=== PATIENT | female | born 1955 | race Caucasian/White ===

== ENCOUNTER 2017-05-11 22:01 | Emergency (ER) | payer OTHER ==
[~2017-05-11] VITALS: Ht 172.7 cm; Wt 81.0 kg
[~2017-05-11 22:01] MED LIST: CALCTAB7 PO; CEPH500C2 PO; CRAN500C2 PO; FLNIN/ NAE; FSM70 PO; HYDR0.2C10 TOP; INSUINJ14 PO; INSUINJ4 SC; LANS30CA63 PO; LEVE1TAB57 PO; LSX20 PO; MINO50CA3 PO; NRN100 PO; OXYC1TAB3 PO; POTA10CA28 PO; RIFA550T2 PO; SPIR50TA3 PO; TMPOPS15 OPB; TPRSR/25 PO; VENL150C56 PO
[2017-05-11 22:19] VITALS: TEMP 37; Ht 172.7 cm; Wt 81.0 kg
[2017-05-11] MEDS ORDERED: BISA1TAB15 PO (23:39)
[2017-05-11 23:51] LABS: URINE APPEARANCE CLEAR (CLEAR); URINE COLOR DK YELLOW; URINE EPITHELIAL CELL AUTO >30 /lpf (0-5); URINE NITRITE NEG (NEG); URINE PH 5.5 (4.5-7.5); URINE SPECIFIC GRAVITY 1.025 (1.000-1.030); UROBILINOGEN NEG (NEG); ZZUR CULT IF INDIC CLEAN CATCH YES
[2017-05-12 00:06] LABS: BUN/CREATININE RATIO 26.4 (10-20); CALCIUM 8.2 mg/dl (8.5-10.1); CREATININE 0.8 mg/dl (0.60-1.20); POTASSIUM 4.4 mmol/L (3.5-5.1)
[2017-05-12 00:08] LABS: MANUAL MICROSCOPIC REQUIRED? NO; REVIEW REQ? NO; URINE BILIRUBIN 1+ (NEG)
[2017-05-12 00:10] LABS: MEAN CELL VOLUME 78.4 fL (80-100); MEAN CORPUSCULAR HEMOGLOBIN 27.1 pg (25-34); MEAN CORPUSCULAR HGB CONC 34.6 g/dl (32-36); PLATELET COUNT 78 K/uL (130-400); RED BLOOD COUNT 4.72 M/uL (4.2-5.4); WHITE BLOOD COUNT 6.67 K/uL (4.8-10.8)
[2017-05-12 00:17] LABS: ALB/GLOB RATIO 0.6 (0.9-2); THYROID STIMULATING HORMONE 3.07 uIu/ml (0.300-4.500)
[2017-05-12 00:28] LABS: BENZODIAZEPINE, URINE NEG (NEG); COCAINE,URINE NEG (NEG); PHENCYCLIDINE, URINE NEG (NEG)
[2017-05-12 00:36] LABS: BASO % 0.1 %; BASO ABS # 0.01 K/uL (0-0.2); COMPLETE YES; EOS % 0.6 %; IG% 0.3 %; LYMPH % 18.3 %; LYMPH ABS # 1.22 K/uL (1.2-3.4); MONO % 14.4 %; NEUT % 66.3 %; PLT ESTIMATE DECREASED
--- NOTE | 2017-05-12 00:52 | EMERGENCY ROOM VISIT NOTE ---
History Report prepared by Christie: Kade Jernigan Under the Supervision of: Dr. Zia Black M.D. First contact with patient: 22:38 Chief Complaint: NAUSEA Stated Complaint: NAUSEA, PSYCHIATRIC ISSUES Nursing Triage Summary: arrived via amb with bls. pt states there were several people insulating the inside of her house today and she did not take her meds. bacmae nauseated tonight. denies vomitting. History of Present Illness The patient is a 61 year old female who presents to the Emergency Room for a mental health evaluation per request of police. She states that there were people in her house "spraying stuff". She states that she does not know who these people in the house were, but thinks that they were contracted by her house manager branch. Per disease case manager, police was called to the patient's house for "suspicious behavior" and found the patient laying on her flood with a steak knife in hand. She states that the patient's kitchen sink was actively running and overflowing, and that she told police "they won't let me go in there". Police feels that the patient may have been hallucinating. The patient has a history of diabetes and hyperammonemia. She denies any suicidal ideation, and states that she does not want to hurt herself. She denies holding a knife, but states that there was a knife in a chair near her. She states "I couldn't go in the kitchen because the floor was wet and I didn't want to leave my prints". The patient also complains of nausea. Source of History: patient Quality: other (mental health evaluation) Associated Symptoms: + nausea Review of Systems See HPI for pertinent positives & negatives. A total of 10 systems reviewed and were otherwise negative. 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 (23) Generalized-onset seizures (24) Head injury (25) Head injury (26) Headache (27) Headache (28) Headache (29) Headache (30) Headache (31) Headache (32) Headache (33) Headache (34) Headache (35) Headache (36) Headache (37) Hepatic encephalopathy (38) Hyperglycemia (39) Hyperglycemia (40) Hyperglycemia without ketosis (41) Hypertension Nos (42) Hypomagnesemia (43) Idiopathic peripheral autonomic neuropathy (44) Ileus (45) Laceration (46) Lumbago (47) Lumbosacral Neuritis Nos (48) Migraine (49) Migraine (50) Migraine (51) Migraine (52) Migraine (53) Migraine (54) Migraine (55) Migraine headache (56) Migraine headache (57) Migraine headache (58) Migraine Unspecified W/O Intract Mgrn W/O Status Migrainosus (59) Myalgia And Myositis Nos (60) Neck pain (61) Noncompliance (62) Osteoporosis (63) Peripheral edema (64) Portal Hypertension (65) Right facial pain (66) Right sided abdominal pain (67) Right upper quadrant abdominal pain (68) Right-sided chest wall pain (69) s/p cholecystectomy (70) s/p lumbar kyphoplasty (71) s/p lumbar laminectomy (72) s/p reconstruction nose (73) Tobacco Use Disorder (74) Unspecified Viral Hepatitis C Without Hepatic Coma (75) UTI (urinary tract infection) (76) Vomiting Family History Adopted Social History Smoking Status: Never Smoker Alcohol Use: other Drug Use: none Marital Status: Housing Status: lives with friends Occupation Status: disabled Current/Historical Medications Scheduled Alendronate Sodium (Alendronate Sodium), 70 MG PO WK Calcium Carbonate-Vitamin D W/ (Caltrate 600 Plus), 1 TABLET PO TID Cranberry (Vaccinium Macrocarp (Cranberry), 500 MG PO DAILY Fluticasone Propionate (Fluticasone Propionate), 2 SPRAYS KODY ON HOLD Furosemide (Furosemide), 20 MG PO DAILY Gabapentin (Gabapentin), 100 MG PO TID Insulin Aspart (Novolog Penfill), UNITS PO AC Insulin Glargine (Lantus Solostar Pen), 70 UNITS SC HS Lansoprazole (Prevacid), 30 MG PO BID Levetiracetam (Keppra), 1,000 MG PO BID Metoprolol Succinate (Metoprolol Succinate ER), 12.5 MG PO DAILY Potassium Chloride (Micro-K Ext Rel), 10 MEQ PO BID Rifaximin (Xifaxan), 550 MG PO BID Spironolactone (Aldactone), 50 MG PO DAILY Venlafaxine Hcl (Effexor Extended Rel), 150 MG PO DAILY Scheduled PRN Bisacodyl (Bisacodyl), 5 MG PO UD PRN for constipation Hydrocortisone Valerate 0.2% (Westcort 0.2%), 1 APPLN TOP TID PRN for ITCH/ INFLAMMATION Oxycodone Immediate Rel Tab (Roxicodone Ir), 10 MG PO Q4H PRN for Severe Pain Allergies Coded Allergies: Coconut (Verified Allergy, Unknown, ANAPHYLAXIS, 05/11/17) Modafinil (Verified Adverse Reaction, Severe, MAKES HYPER, 05/11/17) Sulfamethoxazole (Verified Adverse Reaction, Intermediate, PT STATES NOT GOOD FOR LIVER, 05/11/17) PT STATES (NOT GOOD FOR LIVER) Zolpidem (Verified Adverse Reaction, Intermediate, LIVER PROBLEMS, 05/11/17 ) Morphine (Verified Adverse Reaction, Mild, hallucinations, 05/11/17) Physical Exam Vital Signs Date Time Temp Pulse Resp B/P (MAP) Pulse Ox O2 Delivery O2 Flow Rate FiO2 05/12/17 03:13 84 20 136/68 95 05/11/17 22:19 37.0 110 18 132/60 96 Room Air Physical Exam PSYCH: Denies depression. Denies suicidal ideation. Denies hallucinations. GENERAL: Patient is in no distress. Chronically unwell appearing. Drinking water in the room. HEENT: No acute trauma, normocephalic atraumatic, mucous membranes moist, no nasal congestion, no scleral icterus. NECK: No stridor, no adenopathy, no meningismus, trachea is midline. LUNGS: No dyspnea. Clear to auscultation and equal bilaterally. No wheeze, no rhonchi. HEART: Regular rate and rhythm. No murmurs, rubs, gallops appreciated. ABDOMEN: Soft, bowel sounds positive, no masses appreciated, no peritonitis. Vague diffuse abdominal tenderness which is chronic per patient. BACK: No midline tenderness, no CVA tenderness EXTREMITIES: Normal motion all extremities, no cyanosis, no edema. NEUROLOGIC: Alert and oriented, no acute motor or sensory deficits, no focal weakness, cranial nerves grossly intact. SKIN: No rash, no jaundice, no diaphoresis. Thin skin with many skin tears which appear chronic. Medical Decision & Procedures Laboratory Results 05/11/17 23:21 Red Blood Count 4.72, Mean Corpuscular Volume 78.4, Mean Corpuscular Hemoglobin 27.1, Mean Corpuscular Hemoglobin Concent 34.6, Mean Platelet Volume 11.0, Neutrophils (%) (Auto) 66.3, Lymphocytes (%) (Auto) 18.3, Monocytes (%) (Auto) 14.4, Eosinophils (%) (Auto) 0.6, Basophils (%) (Auto) 0.1, Neutrophils # (Auto ) 4.42, Lymphocytes # (Auto) 1.22, Monocytes # (Auto) 0.96, Eosinophils # (Auto ) 0.04, Basophils # (Auto) 0.01 05/11/17 23:21 Test 05/11/17 23:21 05/11/17 23:30 White Blood Count 6.67 K/uL (4.8-10.8) Red Blood Count 4.72 M/uL (4.2-5.4) Hemoglobin 12.8 g/dL (12.0-16.0) Hematocrit 37.0 % (37-47) Mean Corpuscular Volume 78.4 fL (80-100) Mean Corpuscular Hemoglobin 27.1 pg (25-34) Mean Corpuscular Hemoglobin Concent 34.6 g/dl (32-36) Platelet Count 78 K/uL (130-400) Mean Platelet Volume 11.0 fL (7.4-10.4) Neutrophils (%) (Auto) 66.3 % Lymphocytes (%) (Auto) 18.3 % Monocytes (%) (Auto) 14.4 % Eosinophils (%) (Auto) 0.6 % Basophils (%) (Auto) 0.1 % Neutrophils # (Auto) 4.42 K/uL (1.4-6.5) Lymphocytes # (Auto) 1.22 K/uL (1.2-3.4) Monocytes # (Auto) 0.96 K/uL (0.11-0.59) Eosinophils # (Auto) 0.04 K/uL (0-0.5) Basophils # (Auto) 0.01 K/uL (0-0.2) RDW Standard Deviation 49.1 fL (36.4-46.3) RDW Coefficient of Variation 17.3 % (11.5-14.5) Immature Granulocyte % (Auto) 0.3 % Immature Granulocyte # (Auto) 0.02 K/uL (0.00-0.02) Platelet Estimate DECREASED Anion Gap 4.0 mmol/L (3-11) Est Creatinine Clear Calc Drug Dose 80.4 ml/min Estimated GFR () 90.9 Estimated GFR (Non- 78.5 BUN/Creatinine Ratio 26.4 (10-20) Calcium Level 8.2 mg/dl (8.5-10.1) Total Bilirubin 3.6 mg/dl (0.2-1) Aspartate Amino Transf (AST/SGOT) 91 U/L (15-37) Alanine Aminotransferase (ALT/SGPT) 42 U/L (12-78) Alkaline Phosphatase 132 U/L (45-117) Ammonia 34.0 umol/L (11-32) Total Protein 6.7 gm/dl (6.4-8.2) Albumin 2.4 gm/dl (3.4-5.0) Globulin 4.3 gm/dl (2.5-4.0) Albumin/Globulin Ratio 0.6 (0.9-2) Thyroid Stimulating Hormone (TSH) 3.070 uIu/ml (0.300-4.500) Ethyl Alcohol mg/dL < 3.0 mg/dl (0-3) Urine Color DK YELLOW Urine Appearance CLEAR (CLEAR) Urine pH 5.5 (4.5-7.5) Urine Specific [place] 1.025 (1.000-1.030) Urine Protein NEG (NEG) Urine Glucose (UA) 3+ (NEG) Urine Ketones TRACE (NEG) Urine Occult Blood NEG (NEG) Urine Nitrite NEG (NEG) Urine Bilirubin 1+ (NEG) Urine Urobilinogen NEG (NEG) Urine Leukocyte Esterase TRACE (NEG) Urine WBC (Auto) 1-5 /hpf (0-5) Urine RBC (Auto) 0-4 /hpf (0-4) Urine Hyaline Casts (Auto) 1-5 /lpf (0-5) Urine Epithelial Cells (Auto) >30 /lpf (0-5) Urine Bacteria (Auto) 1+ (NEG) Urine Opiates Screen POS (NEG) Urine Methadone, Qualitative NEG (NEG) Urine Barbiturates NEG (NEG) Urine Phencyclidine (PCP) Level NEG (NEG) Ur Amphetamine/Methamphetamine NEG (NEG) MDMA (Ecstasy) Screen NEG (NEG) Urine Benzodiazepines Screen NEG (NEG) Urine Cocaine Metabolite NEG (NEG) Urine Marijuana (THC) NEG (NEG) Laboratory results as reviewed by me. ED Course 2255: The patient was evaluated in room A6. A complete history and physical exam was performed. 0055: I spoke with the patient regarding admission for her elevated bilirubin. She does not want to stay, but would like another sandwich. She denies any suicidal or homicidal ideation. [facility] will evaluate the patient. 0204: I spoke with the manufacturers representative from [facility]. He states that there is no real criteria for a 302. He would like to leave. The patient will follow up with her PCP tomorrow about the elevated bilirubin. 0210: Reevaluated the patient. Discussed results and discharge instructions: she verbalized understanding and agreement. The patient is ready for discharge. Medical Decision Differential: Mood Disorder, Overdose, Infectious, Electrolyte Abnormality, Cardiac, Hepatic, Endocrine, Toxicologic, Neurologic, amongst other pathologies entertained. 61 yr old female arrives via EMS for mental health evaluation. No 302 petition and patient states she is at her baseline. She is in no distress without any complaints. Admits chronic abdominal pain which has been unchanged. Multiple med comorbidities including cirrhosis and follows with [facility] for this. She is awake, alert, oriented. States reasons for what happened at home. Denies any concerns of suicidal/homicidal thoughts nor actions. She denies acute depression. She denies need for inpatient psych evaluation. Labs with mildly elevated bili from her standard though she states he GI specialist is following this. She refuses inpatient medical admission for further evaluation stating she will follow up with her PCP. She is not encephalopathic and is not intoxicated. [facility] involved given odd story though no indication from their end for involuntary commitment. Appreciate Case Management who contacted her friend (Kiah) who was made aware and noted that she was out of town until Wed ( 1.5 days). Also asked that office aging get involved as well as give PCP/GI call and heads up on labs to try and avoid anything being missed. Impression Primary Impression: Elevated bilirubin Additional Impression: Joycelyn Reynoldsibbello Attestation The scribe's documentation has been prepared under my direction and personally reviewed by me in its entirety. I confirm that the note above accurately reflects all work, treatment, procedures, and medical decision making performed by me. Departure Information Dispostion Home / Self-Care Referrals Franco Singh D.O. (PCP) Patient Instructions My [facility] Additional Instructions Your Bilirubin is elevated above normal for you BiliT 3.6. Please call your Liver specialist in the morning to discuss this. We are always here to help and if you wish further evaluation return at any time. It was advised you stay in the hospital for further evaluation of your liver tests but you have decided against this. Problem Qualifiers
[2017-05-12 03:13] VITALS: BP 136/68; PULSE 84; O2SAT 95
[2017-05-14 15:22] LABS: COD UR NEGATIVE NG/ML (CUTOFF=50); HYDROCOD UR NEGATIVE NG/ML (CUTOFF=50); HYDROMOR UR NEGATIVE NG/ML (CUTOFF=50); MORPHINE UR NEGATIVE NG/ML (CUTOFF=50); NORHYDROCODONE CONF UR NEGATIVE NG/ML (CUTOFF=50); OXYMORPH UR 834 NG/ML (CUTOFF=50)
[2017-07-09] MEDS ORDERED: OXYC1TAB3 PO (10:24)
[2017-07-16] MEDS ORDERED: LCTL45 PO (11:06)
[2017-07-16] MEDS ORDERED: LVNIS40 SQ (11:06)
[2017-07-16] MEDS ORDERED: ACET-1047 PO (11:06)
[2017-07-16] MEDS ORDERED: NVLGIPEN SC (11:06)
[2017-07-16] MEDS ORDERED: INSDGIPEN SC (11:06)
[2017-09-25] MEDS ORDERED: OXYC-164 PO (05:00)
[2017-09-25] MEDS ORDERED: INSU1.2I SQ (05:00)
[2017-09-25] MEDS ORDERED: FSM70 PO (05:04)
[2017-09-25] MEDS ORDERED: LCTL30 PO (05:20)
[2017-09-25] MEDS ORDERED: BISA1TAB25 PO (05:22)
[2017-09-25] MEDS ORDERED: CRAN500C2 PO (05:23)
[2017-09-25] MEDS ORDERED: INSDGIPEN SC (05:25)
[2017-09-25] MEDS ORDERED: NVLGI/PEN SQ (05:27)
== END 2017-05-12 03:14 | disposition home or self-care (01) ==
LOC: EDBD 22:01 → C.EDA 22:02
DX: R82.2 Biliuria (principal); F22 Delusional disorders; E11.9 Type 2 diabetes mellitus without complications; I10 Essential (primary) hypertension; K74.60 Unspecified cirrhosis of liver; K72.90 Hepatic failure, unspecified without coma; J45.909 Unspecified asthma, uncomplicated; J44.9 Chronic obstructive pulmonary disease, unspecified; G40.909 Epilepsy, unspecified, not intractable, without status epilepticus; B19.20 Unspecified viral hepatitis C without hepatic coma; M81.0 Age-related osteoporosis without current pathological fracture; Z87.81 Personal history of (healed) traumatic fracture; Z87.828 Personal history of other (healed) physical injury and trauma; Z87.440 Personal history of urinary (tract) infections; Z90.49 Acquired absence of other specified parts of digestive tract

== ENCOUNTER → 2017-06-15 | Outpatient (CLI) | payer OTHER ==
[~2017-06-15] MED LIST changes: +ACET-1047 PO; +ALEN70TA3 PO; +AMOX1TAB43 PO; +ASPEC81 PO; +BISA1TAB15 PO; -CEPH500C2 PO; +CTP1 PO; +DICY10CA12 PO; +EFFSR75 PO; +ENOX40IN SQ; +HYDCR25 TOP; +IMD/2 PO; +INSDGIPEN SC; +INSDGIPEN SQ; +INSU1.2I SQ; +IPRASOL4 INH; +LCTL45 PO; +LEVE100021 PO; +LVNIS40 SQ; +MAGN400T6 PO; -MINO50CA3 PO; +NF656 TOP; +NVLG SQ; +NVLGI/PEN SC; +NVLGIPEN SC; +PANT40TA PO; +RXC5 PO; -TMPOPS15 OPB; +TPRSR50 PO; +VENL75CA73 PO
--- NOTE | 2017-06-15 13:09 | DIAGNOSTIC IMAGING REPORT ---
RIBS BILATERAL WITH PA CHEST CLINICAL HISTORY: Fall. Bilateral rib pain. COMPARISON STUDY: Chest 02/03/2016. FINDINGS: No pneumothorax. No pleural effusions. The heart is normal in size. Cervical spinal fusion hardware. Linear density left lung base favor scarring or atelectasis. Mild emphysema persists. Mild deformity within a few of the left ribs consistent with old, healed fractures. IMPRESSION: No acute rib fractures. No pneumothorax. Electronically signed by: Asa Dietz M.D. 06/15/2017 1:07 PM Dictated Date/Time: 06/15/2017 1:05 PM
== END | disposition home or self-care (01) ==
LOC: C.RAD1850 12:24
PROVIDERS: ATTEND Family Medicine
DX: R07.9 Chest pain, unspecified (principal)

== ENCOUNTER 2017-07-09 15:48 | Inpatient (IN) | payer OTHER ==
[~2017-07-09] VITALS: Ht 172.7 cm; Wt 74.9 kg
[~2017-07-09 15:48] MED LIST changes: -ACET-1047 PO; -ALEN70TA3 PO; -AMOX1TAB43 PO; -ASPEC81 PO; -CTP1 PO; -DICY10CA12 PO; -EFFSR75 PO; -ENOX40IN SQ; -HYDCR25 TOP; -IMD/2 PO; -INSDGIPEN SC; -INSDGIPEN SQ; -INSU1.2I SQ; -IPRASOL4 INH; -LCTL45 PO; -LEVE100021 PO; -LVNIS40 SQ; -MAGN400T6 PO; -NF656 TOP; -NVLG SQ; -NVLGI/PEN SC; -NVLGIPEN SC; -PANT40TA PO; -RXC5 PO; -TPRSR50 PO; -VENL75CA73 PO
[2017-07-09] MEDS ORDERED: INSU1.2I SQ (16:35)
[2017-07-09] MEDS ORDERED: NVLGI/PEN SC (16:35)
[2017-07-09] MEDS ORDERED: LEVE100021 PO (16:35)
[2017-07-09] MEDS ORDERED: INSDGIPEN SQ (16:38)
[2017-07-09] MEDS ORDERED: HYDCR25 TOP (16:39)
[2017-07-09] MEDS ORDERED: FENTANYL CITRATE INJ 50 MCG/1 ML 2 ML VIAL IV STA (17:11)
[2017-07-09] MEDS ORDERED: SODIUM CHLORIDE 0.9% 1000ML 1,000 ML IV STA (17:11)
[2017-07-09 17:38] LABS: MEAN CORPUSCULAR HGB CONC 34.8 g/dl (32-36)
[2017-07-09 17:56] LABS: BUN/CREATININE RATIO 8.9 (10-20); CALCIUM 8.3 mg/dl (8.5-10.1); CREATININE 0.97 mg/dl (0.60-1.20)
--- NOTE | 2017-07-09 18:10 | DIAGNOSTIC IMAGING REPORT ---
CERVICAL SPINE W/O CLINICAL HISTORY: 62 years-old Female presenting with Fall, neck pain. TECHNIQUE: Multidetector CT of the cervical spine was performed without the use of intravenous contrast. IV contrast: None. A dose lowering technique was used consistent with the principles of ALARA (as low as reasonably achievable). COMPARISON: 01/19/2015. CT DOSE (mGy.cm): The estimated cumulative dose is 405.60 mGy.cm. FINDINGS: Tree Inspector topogram: Anterior cervical fusion hardware noted. Straightening of normal cervical lordosis. Postsurgical changes of anterior plate and screw fixation of C5-C7 with osseous fusion evident. No apparent hardware complication. No acute fracture or subluxation. Multilevel degenerative changes detailed below: C2-3: Normal. C3-4: Bilateral facet and right uncovertebral hypertrophy. No significant osseous neural foraminal or spinal canal narrowing. C4-5: Disc osteophyte complex results in mild osseous narrowing of the ventral spinal canal. In combination with uncovertebral hypertrophy, mild to moderate osseous neural foraminal narrowing noted bilaterally. C5-6: Disc osteophyte complex combination with uncovertebral hypertrophy and right facet joint hypertrophy results in mild right osseous neural foraminal narrowing. C6-7: No significant neural foraminal or spinal canal narrowing. C7-T1: Normal. Paraspinal soft tissues within normal limits. Limited intracranial evaluation normal. Lung apices clear. IMPRESSION: 1. No acute osseous injury of the cervical spine. 2. Postsurgical changes of anterior fusion of C5-C7. No hardware complication. 3. Multilevel degenerative changes most severe at C4-5 indicating development degenerative disease adjacent to the fused levels as above. Electronically signed by: Flavio Vázquez M.D. 07/09/2017 6:08 PM Dictated Date/Time: 07/09/2017 6:00 PM
[2017-07-09] MEDS ORDERED: HYDROmorphone INJ 1 MG/ML SYR IV STA (18:15)
[2017-07-09] MEDS ORDERED: DIPHTHERIA/TETANUS/PERTUSSIS 0.5 ML SYR/VIAL IM. ONE (18:30)
[2017-07-09 18:33] LABS: HEMATOCRIT 42.5 % (37-47); MEAN CELL VOLUME 75.8 fL (80-100); MEAN CORPUSCULAR HEMOGLOBIN 26.4 pg (25-34); RED BLOOD COUNT 5.61 M/uL (4.2-5.4); WHITE BLOOD COUNT 4.14 K/uL (4.8-10.8)
[2017-07-09 18:41] LABS: BASO ABS # 0.04 K/uL (0-0.2); COMPLETE YES; EOS % 1.4 %; IG% 0.7 %; LARGE PLATELETS 1+; LYMPH % 31.6 %; LYMPH ABS # 1.31 K/uL (1.2-3.4); MONO % 10.4 %; NEUT % 54.9 %; PLATELET COUNT 81 K/uL (130-400); PLT ESTIMATE DECREASED
--- NOTE | 2017-07-09 19:07 | DIAGNOSTIC IMAGING REPORT ---
LEFT TIBIA AND FIBULA 2 VIEWS CLINICAL HISTORY: Fall with left leg pain. FINDINGS: AP and lateral views of the left tibia and fibula are obtained. No prior studies are available for comparison at the time of dictation. The skeletal structures are osteopenic. There is no radiographic evidence of left tibial or fibular fracture. The knee and ankle joints are grossly maintained. Mild soft tissue swelling is noted in the calf. IMPRESSION: Mild soft tissue swelling with no radiographic evidence of left tibial or fibular fracture. Electronically signed by: Torres Lorenz M.D. 07/09/2017 7:05 PM Dictated Date/Time: 07/09/2017 7:04 PM
--- NOTE | 2017-07-09 19:08 | DIAGNOSTIC IMAGING REPORT ---
LEFT FEMUR 2 VIEWS ROUTINE CLINICAL HISTORY: 62 years-old Female presenting with Fall, left leg pain. TECHNIQUE: Frontal and lateral views of the left femur were obtained. COMPARISON: None. FINDINGS: Since activity the examination is slightly limited due to patient positioning. Within this limitation, evidence of a intertrochanteric left femur fracture. There is 15 mm of displacement at the fracture plane. Hip joint remains congruent. Knee joint grossly congruent. IMPRESSION: Displaced intertrochanteric left femur fracture. Electronically signed by: Flavio Vázquez M.D. 07/09/2017 7:07 PM Dictated Date/Time: 07/09/2017 7:04 PM
--- NOTE | 2017-07-09 19:39 | DIAGNOSTIC IMAGING REPORT ---
CHEST ONE VIEW PORTABLE CLINICAL HISTORY: 62 years-old Female presenting with Hip fx, fall. TECHNIQUE: Portable supine AP view of the chest was obtained. COMPARISON: 06/15/2017. FINDINGS: Atherosclerosis of aortic arch. Cardiac silhouette normal. Interval development of right perihilar vascular indistinctness and central right mid and lower paramediastinal hazy opacity. No large effusion or pneumothorax. Anterior cervical fusion hardware. Upper abdomen normal. IMPRESSION: 1. Interval development of right perihilar vascular indistinctness and paramediastinal right mid and lower lung hazy opacities. Asymmetry would be unexpected in the setting of pulmonary edema. Aspiration or infection to be considered. 2. No displaced fracture. Electronically signed by: Flavio Vázquez M.D. 07/09/2017 7:37 PM Dictated Date/Time: 07/09/2017 7:35 PM
--- NOTE | 2017-07-09 19:51 | History and Physical ---
History & Physical Date & Time of Service: Jul 09, 2017 at 19:38 Chief Complaint: L-Upper Leg Pain/Fall Primary Care Physician: Franco Singh D.O. History of Present Illness Source: patient Fell today while trying to get dog inside. The patient was out on her lawn trying to get her dog inside. Doesn't know if she lost consciousness. Neighbors saw her fall. Ambulance was called. Uncertain how long she was on the ground. She then got up got onto concrete and fell again. The second time she could not stand on the left leg. States that she hit her head on the concrete. [place] a little foggy after second time. No prodromal symptoms to fall. No lightheadedness, No chest pain or palpitations. Denies any alcohol consumption. Patients nose is croocked at baseline from multiple BCC excisions on nose. The patient denies chest pain, palpitations, resting or exertional dyspnea, lightheadedness/syncope, orthopnea, or lower extremity edema. There is no coughing or wheezing. The patient denies fevers, chills, nightshifts. The patient denies nausea, vomiting diarrhea or constipation. Past Medical/Surgical History Hepatitis C - previously on Harvoni due to failure Seizure disorder Migraines COPD Cirrhosis Type 2 Diabetes Medical Problems: (1) Abdominal pain Status: Resolved (2) Abdominal pain Status: Resolved (3) Ac Pyelonephritis Nos Status: Resolved (4) Alcohol Liver Damage Nos Status: Chronic (5) Ankle pain Status: Resolved (6) Asthma Status: Chronic (7) Chronic obstructive lung disease Status: Chronic (8) Cirrhosis of liver Status: Resolved (9) Cirrhosis Of Liver Nos Status: Chronic (10) Constipation Status: Resolved (11) DIAB KAVYA WO COMPL, TYPE II OR UNSPEC TYPE, NOT UNCNTRLD Status: Chronic (12) Diabetes mellitus Status: Chronic (13) Diabetes mellitus with hyperglycemia Status: Resolved (14) Dysuria Status: Resolved (15) Edema Status: Resolved (16) Epigastric abdominal pain Status: Resolved (17) Fall Status: Resolved (18) Fall Status: Resolved (19) Foot contusion Status: Resolved (20) Foot fracture, right Status: Resolved (21) Fx Lumbar Vertebra-Close Status: Chronic (22) Generalized convulsive epilepsy Status: Chronic (23) Generalized-onset seizures Status: Resolved (24) Head injury Status: Resolved (26) Headache Status: Resolved (37) Hepatic encephalopathy Status: Chronic (38) Hyperglycemia Status: Resolved (41) Hypertension Nos Status: Chronic (42) Hypomagnesemia Status: Resolved (43) Idiopathic peripheral autonomic neuropathy Status: Chronic (44) Ileus Status: Resolved (45) Laceration Status: Resolved (46) Lumbago Status: Chronic (47) Lumbosacral Neuritis Nos Status: Chronic (48) Migraine Status: Resolved ( Status: Resolved (58) Migraine Unspecified W/O Intract Mgrn W/O Status Migrainosus Status: Chronic (59) Myalgia And Myositis Nos Status: Chronic (60) Neck pain Status: Resolved (61) Noncompliance Status: Resolved (62) Osteoporosis Status: Chronic (63) Peripheral edema Status: Resolved (64) Portal Hypertension Status: Chronic (65) Right facial pain Status: Resolved (66) Right sided abdominal pain Status: Resolved (67) Right upper quadrant abdominal pain Status: Resolved (68) Right-sided chest wall pain Status: Resolved (69) s/p cholecystectomy Status: Resolved (70) s/p lumbar kyphoplasty Permanent Comment: 2002 L3 2011 L2 Status: Resolved (71) s/p lumbar laminectomy Permanent Comment: 2003 Status: Resolved (72) s/p reconstruction nose Status: Resolved (73) Tobacco Use Disorder Status: Chronic (74) Unspecified 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: Chronic (75) Vomiting Status: Resolved Family History Adopted Social History Smoking Status: Current Every Day Smoker (6 cigarettes) Smokeless Tobacco Use: No Alcohol Use: none Drug Use: none Marital Status: Housing status: lives alone (with daily critical care paramedic for 8 hours) Occupational Status: disabled Immunizations History of Influenza Vaccine: No Influenza Vaccine Date: Sep 25, 2010 History of Tetanus Vaccine?: Yes Tetanus Immunization Date: Sep 25, 2010 History of Pneumococcal: Yes Pneumococcal Date: March 25, 2009 History of Hepatitis B Vaccine: No Multi-Drug Resistant Organisms History of MDRO: No Allergies Coded Allergies: Coconut (Verified Allergy, Unknown, ANAPHYLAXIS, 05/11/17) Modafinil (Verified Adverse Reaction, Severe, MAKES HYPER, 05/11/17) Sulfamethoxazole (Verified Adverse Reaction, Intermediate, PT STATES NOT GOOD FOR LIVER, 05/11/17) PT STATES (NOT GOOD FOR LIVER) Zolpidem (Verified Adverse Reaction, Intermediate, LIVER PROBLEMS, 05/11/17 ) Morphine (Verified Adverse Reaction, Mild, hallucinations, 05/11/17) Home Medications Scheduled Calcium Carbonate-Vitamin D W/ (Caltrate 600 Plus), 1 TABLET PO TID Cranberry (Vaccinium Macrocarp (Cranberry), 500 MG PO DAILY Fluticasone Propionate (Fluticasone Propionate), 2 SPRAYS KODY DAILY Furosemide (Furosemide), 20 MG PO DAILY Gabapentin (Gabapentin), 100 MG PO BID Hydrocortisone (Hydrocortisone), 1 APPLN TOP PRN UD Insulin Aspart (Novolog Flexpen), SC AC Insulin Glargine (Toujeo Solostar), 80 UNITS SQ DAILY Lansoprazole (Prevacid), 30 MG PO BID Levetiracetam (Levetiracetam), 1,000 MG PO BID Metoprolol Succinate (Metoprolol Succinate ER), 12.5 MG PO DAILY Potassium Chloride (Micro-K Ext Rel), 10 MEQ PO BID Rifaximin (Xifaxan), 550 MG PO BID Spironolactone (Aldactone), 50 MG PO DAILY Venlafaxine Hcl (Effexor Extended Rel), 150 MG PO DAILY Scheduled PRN Bisacodyl (Bisacodyl), 5 MG PO UD PRN for constipation Oxycodone Immediate Rel Tab (Roxicodone Ir), 10 MG PO TID PRN for Severe Pain Review of Systems A 10 point review of systems was negative unless stated above. Physical Exam Vital Signs Date Time Temp Pulse Resp B/P (MAP) Pulse Ox O2 Delivery O2 Flow Rate FiO2 07/09/17 19:23 91 07/09/17 17:23 98 20 102/67 97 Room Air 07/09/17 16:01 36.9 115 18 126/85 92 Room Air General Appearance: WD/WN, + mild distress Head: normocephalic, atraumatic Eyes: normal inspection, EOMI ENT: + pertinent finding (nose bent towards the right) Neck: supple, no adenopathy, no JVD Respiratory/Chest: lungs clear, no respiratory distress Cardiovascular: regular rate, rhythm, no gallop, no murmur Abdomen/GI: normal bowel sounds, non tender, soft Back: + pertinent finding (could not assess) Extremities/Musculoskelatal: no calf tenderness, no pedal edema 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: alert, normal mood/affect, oriented x 3, + pertinent finding Skin: normal color, warm/dry, no rash Lymphatic: no adenopathy Diagnostics Laboratory Results Results Past 24 Hours Test 07/09/17 17:22 Range/Units White Blood Count 4.14 4.8-10.8 K/uL Red Blood Count 5.61 4.2-5.4 M/uL Hemoglobin 14.8 12.0-16.0 g/dL Hematocrit 42.5 37-47 % Mean Corpuscular Volume 75.8 80-100 fL Mean Corpuscular Hemoglobin 26.4 25-34 pg Mean Corpuscular Hemoglobin Concent 34.8 32-36 g/dl Platelet Count 81 130-400 K/uL Neutrophils (%) (Auto) 54.9 % Lymphocytes (%) (Auto) 31.6 % Monocytes (%) (Auto) 10.4 % Eosinophils (%) (Auto) 1.4 % Basophils (%) (Auto) 1.0 % Neutrophils # (Auto) 2.27 1.4-6.5 K/uL Lymphocytes # (Auto) 1.31 1.2-3.4 K/uL Monocytes # (Auto) 0.43 0.11-0.59 K/uL Eosinophils # (Auto) 0.06 0-0.5 K/uL Basophils # (Auto) 0.04 0-0.2 K/uL RDW Standard Deviation 46.0 36.4-46.3 fL RDW Coefficient of Variation 16.5 11.5-14.5 % Immature Granulocyte % (Auto) 0.7 % Immature Granulocyte # (Auto) 0.03 0.00-0.02 K/uL Platelet Estimate DECREASED Large Platelets 1+ Sodium Level 137 136-145 mmol/L Potassium Level 4.0 3.5-5.1 mmol/L Chloride Level 107 98-107 mmol/L Carbon Dioxide Level 24 21-32 mmol/L Anion Gap 6.0 3-11 mmol/L Blood Urea Nitrogen 9 7-18 mg/dl Creatinine 0.97 0.60-1.20 mg/dl Est Creatinine Clear Calc Drug Dose 59.1 ml/min Estimated GFR () 71.5 Estimated GFR (Non- 61.7 BUN/Creatinine Ratio 8.9 10-20 Random Glucose 234 70-99 mg/dl Calcium Level 8.3 8.5-10.1 mg/dl Diagnostic Radiology LEFT TIBIA AND FIBULA 2 VIEWS CLINICAL HISTORY: Fall with left leg pain. FINDINGS: AP and lateral views of the left tibia and fibula are obtained. No prior studies are available for comparison at the time of dictation. The skeletal structures are osteopenic. There is no radiographic evidence of left tibial or fibular fracture. The knee and ankle joints are grossly maintained. Mild soft tissue swelling is noted in the calf. IMPRESSION: Mild soft tissue swelling with no radiographic evidence of left tibial or fibular fracture. Electronically signed by: Torres Lorenz M.D. 07/09/2017 7:05 PM Dictated Date/Time: 07/09/2017 7:04 PM LEFT FEMUR 2 VIEWS ROUTINE CLINICAL HISTORY: 62 years-old Female presenting with Fall, left leg pain. TECHNIQUE: Frontal and lateral views of the left femur were obtained. COMPARISON: None. FINDINGS: Since activity the examination is slightly limited due to patient positioning. Within this limitation, evidence of a intertrochanteric left femur fracture. There is 15 mm of displacement at the fracture plane. Hip joint remains congruent. Knee joint grossly congruent. IMPRESSION: Displaced intertrochanteric left femur fracture. Impression Assessment and Plan 62 year old with Cirrhosis, Seizure Disorder and Hepatitis C, with fall and displaced left intertrochanteric hip fracture. Our plan is as follows: Left Intertrochanteric Hip Fracture - NPO after midnight except medications - Orthopedics consulted (Dr. Bullock) - Pre-operative EKG, CXR - Type and Cross, coag studies - Tylenol, Percocet for pain (patient allergic to Morphine) Right Hilar Opacity - Unclear if infective vs nodule - Procalcitonin to evaluate for infection - CT non-contrast for further characterization is overall unremarkable - Patient is not having new O2 requirements Head Injury due to Fall - Non-contrast head CT negative for acute pathology Diabetes - Hold home medications - SSI with AC/HS checks - Once fasting q6h checks Seizure Disorder - Check Keppra Level to evaluate cause for fall - Continue Keppra Cirrhosis/Portal HTN 2/2 Hep C and Previous EtOH - Continue Lasix - Continue Rifaximin Thrombocytopenia - Appears chronic based on previous Plt Counts; like 2/2 Cirrhosis - No evidence of active bleeding - This does not preclude use of prophylactic anticoagulation HTN - Continue Spironolactone - Continue Metoprolol Depression - Continue Effexor Hepatitis C - Not on treatment DVT Prophylaxis - SCD Knee, LIZET Yeh - Heparin 5000 TID Code Status - Level I Full Code Disposition - Med/Surg - OT and PT evaluations Attending Addendum: I have physically seen and examined this patient, have supervised the medical residents activities, and agree with the H&P as noted above with the following exceptions as noted. The patient fell twice while outside, landing on her left hip, with the second time being unable to bear her weight on the left leg. The second time she fell she also hit her head on the concrete, and has felt a little foggy since that time. The patient denies chest pain, palpitations, shortness of breath, cough, lower extremity swelling, vision change, hearing change, sore throat, fevers, chills, sweats, weight change, fatigue, nausea, vomiting, diarrhea or constipation, abdominal pain, pelvic pain, blood in urine or stool, dysuria, urinary frequency or urgency, rash, abnormal bruising or bleeding, generalized weakness , numbness or tingling in arms , generalized arthralgias or myalgias, back or neck pain, night sweats, or allergy symptoms. The review of systems is otherwise negative other than for that already noted above, and at least 10 systems have been reviewed. The patient is awake, well-developed and adequately nourished, alert and oriented 3, normocephalic and atraumatic, lying in bed and in no acute distress. HEENT--PERRL, EOMI, mucous membranes and oropharynx dry. Nasal deviation toward right Neck--supple, no JVD or bruits, thyroid normal, trachea midline, no adenopathy. Heart--normal S1 and S2, no extra beats, no murmurs, rubs or gallops. Lungs--clear bilaterally with good air movement, no respiratory distress, no accessory muscle use. Abdomen--normal bowel sounds and soft, nontender and nondistended, no hernias or masses, no organomegaly. Extremities--no cyanosis, clubbing or edema. There are good distal pulses b/l. Dermatologic--normal skin turgor, normal color, warm and dry, no abnormal lymph nodes, no rash. Neurologic--cranial nerves II through XII grossly intact, motor and sensory examination normal. Rheumatologic--left hip fracture Psychiatric--normal affect. Assessment and Plan: 1. Intertrochanteric left hip fracture--admitted to the medical surgical floor. Nothing by mouth after midnight except medications. Tylenol and Percocet for pain when necessary. [facility] orth[facility] Dr. Bullock aware of patient. 2. Head injury status post fall with residual fogginess--monitor for postconcussive syndrome. 3. Seizure disorder-- continue Keppra, check level. 4. Diabetes mellitus--is on Accu-Cheks before meals and at bedtime with NovoLog coverage per scale. Place on half dose Toujeo if blood sugar elevates. 5. Cirrhosis/portal hypertension/hepatitis C/previous alcohol-abnormal LFTs. Level of Care Med/Surg Advanced Directives Existing Advance Directive: No Existing Living Will: No Existing Power of Renal Dietitian: No Resuscitation Status FULL RESUSCITATION VTE Prophylaxis VTE Risk Assessment Done? Y/N: Yes Risk Level: Moderate Given or contraindicated: SCD's Social Service Consult None Apply
[2017-07-09] MEDS ORDERED: ONDANSETRON INJ 2 MG/ML 2 ML VIAL IV PRN (20:00)
[2017-07-09] MEDS ORDERED: NALOXONE HCL 0.4 MG/1 ML VIAL/CARP IV PRN (20:00)
[2017-07-09] MEDS ORDERED: GLUCOSE 10 TABS/TUBE PO PRN (20:00)
[2017-07-09] MEDS ORDERED: BISACODYL 10 MG SUPP PR PRN (20:00)
[2017-07-09] MEDS ORDERED: MoRPHine SULFATE 2 MG/ML CARP IV PRN (20:00)
[2017-07-09] MEDS ORDERED: MAGNESIUM HYDROXIDE SUSP 30 ML UDC PO PRN ×2 (20:00)
[2017-07-09] MEDS ORDERED: DEXTROSE 50% 50 ML SYR IV PRN (20:00)
[2017-07-09] MEDS ORDERED: SOD PHOSPHATE/SOD BIPHOSPHATE ENEMA 132 ML BTL PR PRN (20:00)
[2017-07-09] MEDS ORDERED: POLYETHYLENE (MIRALAX) 17 GM PACK PO PRN ×2 (20:00)
[2017-07-09] MEDS ORDERED: GLUCAGON FOR INJ 1 MG VIAL SQ PRN (20:00)
[2017-07-09] MEDS ORDERED: ACETAMINOPHEN 325 MG TAB PO PRN ×2 (20:00)
[2017-07-09] MEDS ORDERED: ALUMINUM/MAGNESIUM/SIMETH (MAALOX MAX) 30 ML UDC PO PRN (20:00)
[2017-07-09] MEDS ORDERED: BISACODYL 5 MG TABEC PO PRN (20:15)
[2017-07-09] MEDS ORDERED: INSULIN ASPART 100 UNITS/ML 3 ML PEN SC SCH (21:00)
[2017-07-09 21:04] LABS: URINE APPEARANCE CLEAR (CLEAR); URINE BILIRUBIN NEG (NEG); URINE COLOR ORANGE; URINE EPITHELIAL CELL AUTO 20-30 /lpf (0-5); URINE NITRITE NEG (NEG); URINE SPECIFIC GRAVITY 1.013 (1.000-1.030); UROBILINOGEN NEG (NEG); ZZURINE CULT IF INDIC CATH NO
[2017-07-09 21:08] LABS: MANUAL MICROSCOPIC REQUIRED? NO; REVIEW REQ? YES
[2017-07-09 21:19] LABS: URINE PATH CASTS 1-5 GRANULAR CASTS /lpf (0)
[2017-07-09 21:53] VITALS: O2SAT 94; BMI 24.8
[2017-07-09 22:05] VITALS: O2SAT 95
[2017-07-09 22:09] LABS: INR 1.3 (0.9-1.1); PARTIAL THROMBOPLASTIN RATIO 1.3; PROTHROMBIN TIME (PATIENT) 13.6 SECONDS (9.0-12.0)
--- NOTE | 2017-07-09 22:11 | DIAGNOSTIC IMAGING REPORT ---
HEAD WITHOUT CONTRAST (CT) CLINICAL HISTORY: 62 years-old Female presenting with fell and hit head on concrete; unclear if LOC. TECHNIQUE: Multidetector CT imaging of the head was performed without the use of intravenous contrast. IV contrast: None. A dose lowering technique was used consistent with the principles of ALARA (as low as reasonably achievable). COMPARISON: 07/23/2015. CT DOSE (mGy.cm): The estimated cumulative dose is 1036.81 mGy.cm. FINDINGS: Chief Revenue Officer topogram: Unremarkable. Ventricles and sulci normal in size. Brain parenchyma normal in appearance with preserved jacobo-white differentiation. No mass effect or midline shift. No hemorrhage or acute territorial infarct. No extra-axial fluid collection. Paranasal sinuses and mastoid air cells clear. Calvarium intact. Rightward deviation of the nasal bone may suggest fracture. This is incompletely included within the [id number] IMPRESSION: 1. No acute intracranial pathology. Electronically signed by: Flavio Vázquez M.D. 07/09/2017 10:10 PM Dictated Date/Time: 07/09/2017 10:08 PM
--- NOTE | 2017-07-09 22:16 | DIAGNOSTIC IMAGING REPORT ---
(CHEST) THORAX WITHOUT CLINICAL HISTORY: 62 years-old Female presenting with right hilar opacification; infection vs mass; +vesmoking history. TECHNIQUE: Multidetector CT imaging of the chest was performed without the use of intravenous contrast. IV contrast: None. A dose lowering technique was used consistent with the principles of ALARA (as low as reasonably achievable). COMPARISON: 08/26/2015. CT DOSE (mGy.cm): The estimated cumulative dose is 1036.81 inclusive of the head CT. FINDINGS: Social Media Marketing Manager topogram: Cervical fusion hardware. On soft tissue windows, normal thyroid and thoracic inlet. No axillary, supraclavicular, hilar, or mediastinal lymphadenopathy. Atherosclerosis of the proximal descending thoracic aorta. Normal heart size. No pericardial or pleural effusion. Cirrhotic morphology of the liver. Cholecystectomy clips. Splenomegaly may be present. On lung windows, dependent opacities greater on the right. Image quality is degraded by respiratory motion artifact. No suspicious pulmonary mass. Airways patent. On bone windows, anterior cervical fusion hardware. IMPRESSION: 1. Dependent opacities greater on the right, most likely atelectasis. Aspiration or infection are considered less likely. No suspicious pulmonary mass within limitations of image quality. 2. Cirrhosis. 3. Possible splenomegaly. Electronically signed by: Flavio Vázquez M.D. 07/09/2017 10:15 PM Dictated Date/Time: 07/09/2017 10:11 PM
[2017-07-09] MEDS: LACTATED RINGER'S 1000ML 1,000 ML IV SCH (22:20)
[2017-07-09] MEDS: DOCUSATE SODIUM/SENNA 50/8.6MG TAB PO SCH (22:38)
[2017-07-09] MEDS: CALCIUM 600MG + VIT D 400 IU TAB PO SCH (22:38)
[2017-07-09] MEDS: RIFAXIMIN TAB 550 MG TAB PO SCH (22:39)
[2017-07-09] MEDS: POTASSIUM CHLORIDE 10 MEQ TABCR PO SCH (22:39)
[2017-07-09] MEDS: PANTOprazole SOD 40 MG TAB PO SCH (22:39)
[2017-07-09] MEDS: GABAPENTIN 100 MG CAP PO SCH (22:39)
[2017-07-09] MEDS: LEVETIRACETAM 500 MG TAB PO SCH (22:39)
[2017-07-09] MEDS: HEPARIN SOD 5000 UNIT/0.5 ML CARP SQ SCH (23:00)
[2017-07-09 23:02] VITALS: BP 117/83; PULSE 93; TEMP 36.4; O2SAT 95
[2017-07-09] MEDS: OXYCODONE HCL IR 5 MG TAB (IMMEDIATE RELEASE) PO PRN (23:28)
[2017-07-10] VITALS (8 sets, daily range): BP systolic 114–129; BP diastolic 66–82; PULSE 97–114; TEMP 36.5–37.5; O2SAT 92–94
[2017-07-10] MEDS ORDERED: NURSING VERBAL MED ORDER ONE (01:00)
--- NOTE | 2017-07-10 02:45 | EMERGENCY ROOM VISIT NOTE ---
History First contact with patient: 16:22 Chief Complaint: FALL Stated Complaint: HIP FRACTURE, LEFT History of Present Illness The patient is a 62 year old female who presents to the Emergency Room via ambulance with complaints of "hip fracture, left". The patient states that earlier today, her dog got loose and when she went outside to look for the dog she slipped and fell onto her left side, landing on her hip. She states that her neighbor was able to help pick her up, and then as she was walking she slipped and fell again onto her left side. She states that this time her neighbor was unable to lift her or help her secondary to her extreme leg pain. She states that they were then called 911. She states that at this time she has severe pain in the left hip, and even in route where she received 200 mg of fentanyl her pain is still a 10/10. She also notes pain in the left side of her neck. She states that she also has some skin tears/abrasions to her arms. She is unsure of her tetanus is up-to-date. She denies any head injury, loss of consciousness, head pain, vision changes. Review of Systems A complete 10-point Review of Systems was discussed with the patient, with pertinent positives and negatives listed in the History of Present Illness. All remaining Review of Systems questions can be considered negative unless otherwise specified. Past Medical/Surgical History Medical Problems: (1) Abdominal pain (2) Abdominal pain (3) Ac Pyelonephritis Nos (4) Alcohol Liver Damage Nos (5) Ankle pain (6) Asthma (7) Chronic obstructive lung disease (8) Cirrhosis of liver (9) Cirrhosis Of Liver Nos (10) Constipation (11) DIAB KAVYA WO COMPL, TYPE II OR UNSPEC TYPE, NOT UNCNTRLD (12) Diabetes mellitus (13) Diabetes mellitus with hyperglycemia (14) Dysuria (15) Edema (16) Epigastric abdominal pain (17) Fall (18) Fall (19) Foot contusion (20) Foot fracture, right (21) Fx Lumbar Vertebra-Close (22) Generalized convulsive epilepsy (23) Generalized-onset seizures (24) Head injury (25) Head injury (26) Headache (27) Headache (28) Headache (29) Headache (30) Headache (31) Headache (32) Headache (33) Headache (34) Headache (35) Headache (36) Headache (37) Hepatic encephalopathy (38) Hip fracture, left (39) Hyperglycemia (40) Hyperglycemia (41) Hyperglycemia without ketosis (42) Hypertension Nos (43) Hypomagnesemia (44) Idiopathic peripheral autonomic neuropathy (45) Ileus (46) Laceration (47) Lumbago (48) Lumbosacral Neuritis Nos (49) Migraine (50) Migraine (51) Migraine (52) Migraine (53) Migraine (54) Migraine (55) Migraine (56) Migraine headache (57) Migraine headache (58) Migraine headache (59) Migraine Unspecified W/O Intract Mgrn W/O Status Migrainosus (60) Myalgia And Myositis Nos (61) Neck pain (62) Noncompliance (63) Osteoporosis (64) Peripheral edema (65) Portal Hypertension (66) Right facial pain (67) Right sided abdominal pain (68) Right upper quadrant abdominal pain (69) Right-sided chest wall pain (70) s/p cholecystectomy (71) s/p lumbar kyphoplasty (72) s/p lumbar laminectomy (73) s/p reconstruction nose (74) Tobacco Use Disorder (75) Unspecified Viral Hepatitis C Without Hepatic Coma (76) UTI (urinary tract infection) (77) Vomiting Family History Adopted Social History Smoking Status: Current Every Day Smoker Smokeless Tobacco Use: No Alcohol Use: other Drug Use: none Marital Status: Housing Status: lives with friends Occupation Status: disabled Current/Historical Medications Scheduled Calcium Carbonate-Vitamin D W/ (Caltrate 600 Plus), 1 TABLET PO TID Cranberry (Vaccinium Macrocarp (Cranberry), 500 MG PO DAILY Fluticasone Propionate (Fluticasone Propionate), 2 SPRAYS KODY DAILY Furosemide (Furosemide), 20 MG PO DAILY Gabapentin (Gabapentin), 100 MG PO BID Hydrocortisone (Hydrocortisone), 1 APPLN TOP PRN UD Insulin Aspart (Novolog Flexpen), SC AC Insulin Glargine (Toujeo Solostar), 80 UNITS SQ DAILY Lansoprazole (Prevacid), 30 MG PO BID Levetiracetam (Levetiracetam), 1,000 MG PO BID Metoprolol Succinate (Metoprolol Succinate ER), 12.5 MG PO DAILY Potassium Chloride (Micro-K Ext Rel), 10 MEQ PO BID Rifaximin (Xifaxan), 550 MG PO BID Spironolactone (Aldactone), 50 MG PO DAILY Venlafaxine Hcl (Effexor Extended Rel), 150 MG PO DAILY Scheduled PRN Bisacodyl (Bisacodyl), 5 MG PO UD PRN for constipation Oxycodone Immediate Rel Tab (Roxicodone Ir), 10 MG PO TID PRN for Severe Pain Physical Exam Vital Signs Date Time Temp Pulse Resp B/P (MAP) Pulse Ox O2 Delivery O2 Flow Rate FiO2 07/09/17 19:48 98 20 94 07/09/17 19:23 91 07/09/17 19:00 90 Room Air 07/09/17 19:00 95 18 108/79 95 Nasal Cannula 2.0 07/09/17 17:31 113/92 07/09/17 17:23 98 20 102/67 97 Room Air 07/09/17 16:01 36.9 115 18 126/85 92 Room Air Pain Rating (0-10): 3.0 Physical Exam VITAL SIGNS - Vital signs and nursing notes were reviewed. Afebrile, normotensive, tachycardic at a rate of 115 beats per neck, and is saturating on room air 92%. GENERAL -62-year-old female appearing her stated age who is in no acute distress. Communicates well with provider and answers questions appropriately. SKIN - there are numerous abrasions, contusions and skin tears overlying the left arm, left anterior leg. No evidence of open fracture of the left hip. HEAD - NC/AT. EYES - PERRL with EOMI bilaterally. Sclera anicteric. No hyphema EARS - No deformities of external structures noted on gross examination bilaterally. No hemotympanum NOSE - Midline and without cyanosis. No epistaxis or purulent drainage noted. MOUTH/OROPHARYNX - Without perioral cyanosis. Airways patent. NECK - c-collar is applied. There is minimal left sided cervical tenderness. LUNGS - Chest wall symmetric without accessory muscle use, intercostals retractions, or central cyanosis. Normal vesicular breath sounds CTA B/L. No wheezes, rales, or rhonchi appreciated. CARDIAC - RRR with S1/S2. No murmur, rubs, or gallops appreciated. ABDOMEN - Abdominal contour without pulsations or visible masses. BS normoactive all four quadrants. No tenderness, palpable masses, hepatosplenomegaly, or ascites noted. EXTREMITIES - No clubbing or peripheral cyanosis. No pretibial edema present. There is tenderness to palpation overlying the left hip region, and left thigh. +5/5 strength noted in UE/LE bilaterally. She is neurovascularly intact in this region. Medical Decision & Procedures ER Provider Diagnostic Interpretation: CHEST ONE VIEW PORTABLE CLINICAL HISTORY: 62 years-old Female presenting with Hip fx, fall. TECHNIQUE: Portable supine AP view of the chest was obtained. COMPARISON: 06/15/2017. FINDINGS: Atherosclerosis of aortic arch. Cardiac silhouette normal. Interval development of right perihilar vascular indistinctness and central right mid and lower paramediastinal hazy opacity. No large effusion or pneumothorax. Anterior cervical fusion hardware. Upper abdomen normal. IMPRESSION: 1. Interval development of right perihilar vascular indistinctness and paramediastinal right mid and lower lung hazy opacities. Asymmetry would be unexpected in the setting of pulmonary edema. Aspiration or infection to be considered. 2. No displaced fracture. Electronically signed by: Flavio Vázquez M.D. 07/09/2017 7:37 PM Dictated Date/Time: 07/09/2017 7:35 PM LEFT FEMUR 2 VIEWS ROUTINE CLINICAL HISTORY: 62 years-old Female presenting with Fall, left leg pain. TECHNIQUE: Frontal and lateral views of the left femur were obtained. COMPARISON: None. FINDINGS: Since activity the examination is slightly limited due to patient positioning. Within this limitation, evidence of a intertrochanteric left femur fracture. There is 15 mm of displacement at the fracture plane. Hip joint remains congruent. Knee joint grossly congruent. IMPRESSION: Displaced intertrochanteric left femur fracture. Electronically signed by: Flavio Vázquez M.D. 07/09/2017 7:07 PM Dictated Date/Time: 07/09/2017 7:04 PM CERVICAL SPINE W/O CLINICAL HISTORY: 62 years-old Female presenting with Fall, neck pain. TECHNIQUE: Multidetector CT of the cervical spine was performed without the use of intravenous contrast. IV contrast: None. A dose lowering technique was used consistent with the principles of ALARA (as low as reasonably achievable). COMPARISON: 01/19/2015. CT DOSE (mGy.cm): The estimated cumulative dose is 405.60 mGy.cm. FINDINGS: [employer] topogram: Anterior cervical fusion hardware noted. Straightening of normal cervical lordosis. Postsurgical changes of anterior plate and screw fixation of C5-C7 with osseous fusion evident. No apparent hardware complication. No acute fracture or subluxation. Multilevel degenerative changes detailed below: C2-3: Normal. C3-4: Bilateral facet and right uncovertebral hypertrophy. No significant osseous neural foraminal or spinal canal narrowing. C4-5: Disc osteophyte complex results in mild osseous narrowing of the ventral spinal canal. In combination with uncovertebral hypertrophy, mild to moderate osseous neural foraminal narrowing noted bilaterally. C5-6: Disc osteophyte complex combination with uncovertebral hypertrophy and right facet joint hypertrophy results in mild right osseous neural foraminal narrowing. C6-7: No significant neural foraminal or spinal canal narrowing. C7-T1: Normal. Paraspinal soft tissues within normal limits. Limited intracranial evaluation normal. Lung apices clear. IMPRESSION: 1. No acute osseous injury of the cervical spine. 2. Postsurgical changes of anterior fusion of C5-C7. No hardware complication. 3. Multilevel degenerative changes most severe at C4-5 indicating development degenerative disease adjacent to the fused levels as above. Electronically signed by: Flavio Vázquez M.D. 07/09/2017 6:08 PM Dictated Date/Time: 07/09/2017 6:00 PM LEFT TIBIA AND FIBULA 2 VIEWS CLINICAL HISTORY: Fall with left leg pain. FINDINGS: AP and lateral views of the left tibia and fibula are obtained. No prior studies are available for comparison at the time of dictation. The skeletal structures are osteopenic. There is no radiographic evidence of left tibial or fibular fracture. The knee and ankle joints are grossly maintained. Mild soft tissue swelling is noted in the calf. IMPRESSION: Mild soft tissue swelling with no radiographic evidence of left tibial or fibular fracture. Electronically signed by: Torres Lorenz M.D. 07/09/2017 7:05 PM Dictated Date/Time: 07/09/2017 7:04 PM Laboratory Results 07/09/17 17:22 Red Blood Count 5.61, Mean Corpuscular Volume 75.8, Mean Corpuscular Hemoglobin 26.4, Mean Corpuscular Hemoglobin Concent 34.8, Neutrophils (%) (Auto) 54.9, Lymphocytes (%) (Auto) 31.6, Monocytes (%) (Auto) 10.4, Eosinophils (%) (Auto) 1.4, Basophils (%) (Auto) 1.0, Neutrophils # (Auto) 2.27, Lymphocytes # (Auto) 1.31, Monocytes # (Auto) 0.43, Eosinophils # (Auto) 0.06, Basophils # (Auto) 0.04 07/09/17 17:22 Test 07/09/17 17:22 White Blood Count 4.14 K/uL (4.8-10.8) Red Blood Count 5.61 M/uL (4.2-5.4) Hemoglobin 14.8 g/dL (12.0-16.0) Hematocrit 42.5 % (37-47) Mean Corpuscular Volume 75.8 fL (80-100) Mean Corpuscular Hemoglobin 26.4 pg (25-34) Mean Corpuscular Hemoglobin Concent 34.8 g/dl (32-36) Platelet Count 81 K/uL (130-400) Neutrophils (%) (Auto) 54.9 % Lymphocytes (%) (Auto) 31.6 % Monocytes (%) (Auto) 10.4 % Eosinophils (%) (Auto) 1.4 % Basophils (%) (Auto) 1.0 % Neutrophils # (Auto) 2.27 K/uL (1.4-6.5) Lymphocytes # (Auto) 1.31 K/uL (1.2-3.4) Monocytes # (Auto) 0.43 K/uL (0.11-0.59) Eosinophils # (Auto) 0.06 K/uL (0-0.5) Basophils # (Auto) 0.04 K/uL (0-0.2) RDW Standard Deviation 46.0 fL (36.4-46.3) RDW Coefficient of Variation 16.5 % (11.5-14.5) Immature Granulocyte % (Auto) 0.7 % Immature Granulocyte # (Auto) 0.03 K/uL (0.00-0.02) Platelet Estimate DECREASED Large Platelets 1+ Prothrombin Time 13.6 SECONDS (9.0-12.0) Prothromb Time International Ratio 1.3 (0.9-1.1) Activated Partial Thromboplast Time 34.4 SECONDS (21.0-31.0) Partial Thromboplastin Ratio 1.3 Anion Gap 6.0 mmol/L (3-11) Est Creatinine Clear Calc Drug Dose 59.1 ml/min Estimated GFR () 71.5 Estimated GFR (Non- 61.7 BUN/Creatinine Ratio 8.9 (10-20) Calcium Level 8.3 mg/dl (8.5-10.1) Total Bilirubin 2.5 mg/dl (0.2-1) Direct Bilirubin 1.4 mg/dl (0-0.2) Aspartate Amino Transf (AST/SGOT) 91 U/L (15-37) Alanine Aminotransferase (ALT/SGPT) 37 U/L (12-78) Alkaline Phosphatase 233 U/L (45-117) Total Protein 6.9 gm/dl (6.4-8.2) Albumin 2.2 gm/dl (3.4-5.0) Procalcitonin < 0.05 ng/ml (0-0.5) Date/Time Source Procedure Growth Status 07/09/17 00:00 Nasal MRSA DNA Surveillance Screen - Final Specimen Negative for MRSA by DNA Probe Complete Medications Administered Medications (Trade) Dose Ordered Sig/Alyse Route Start Time Stop Time Status Last Admin Dose Admin Sodium Chloride 1,000 ml @ 999 mls/hr Q1H1M STAT IV 07/09/17 17:11 07/09/17 18:21 DC 07/09/17 17:11 999 MLS/HR Fentanyl Citrate (Fentanyl Inj) 100 mcg NOW STAT IV 07/09/17 17:11 07/09/17 17:13 DC 07/09/17 17:24 100 MCG Hydromorphone HCl (Dilaudid Inj) 1 mg NOW STAT IV 07/09/17 18:15 07/09/17 18:21 DC 07/09/17 19:05 1 MG Lactated Ringer's 1,000 ml @ 125 mls/hr Q8H IV 07/09/17 19:52 08/08/17 19:51 07/09/17 22:20 125 MLS/HR Oxycodone HCl (Roxicodone Immediate Rel Tab) 5 mg Q4H PRN PO 07/09/17 20:00 07/23/17 19:59 07/09/17 23:28 5 MG Medical Decision Patient was seen and evaluated as above. After obtaining a thorough history and physical examination IV access was initiated, and the above workup was performed. Patient was in stool today via ambulance status post fall. She certainly appears to be in a good deal of pain upon my examination, but is already had 200 mg of fentanyl in route to the hospital here today. She is maintaining her O2 sats well. I will give her another 100 mg of fentanyl, she is still complaining of severe pain, and is very alert and oriented. Oxygen was initiated. She was evaluated and was still feeling pain. As she was still able to maintain her O2 sats well, 1 mg of Dilaudid was ordered. She was reevaluated and was feeling less pain, but still noted a good deal of pain. CT of the neck was obtained secondary to pain. No acute fracture or dislocation. C-collar was then removed. Radiographs of the hip were concerning for that of an intertrochanteric fracture. I then initiated a hip fracture protocol to better facilitate the patient's inpatient management. I discussed the case with the on-call orthopedic surgeon, Dr. Vines. He indicated he would look forward to seeing the patient or one of his associates the next day after medicine admit the patient which I do believe is reasonable at this time. I then discussed the case with the attending physician, followed by the hospitalist who agrees to admit the patient for further evaluation and management. The patient this time does appear for inpatient management. Please for further documentation regarding her stay. Most of her wounds were already cleansed and bandaged. There was a small skin tear on the left arm that I typically cleanse, and applied Dermabond to to help facilitate healing. Skin tear size is 1 cm x 1 cm. Tetanus shot was also ordered as it was determined to be 9 years ago since her previous as documented in our system In evaluation treatment this patient the following differential diagnoses were entertained: Hip fracture, dislocation, muscle spasm, neck fracture, pulled muscle, among others. Impression Primary Impression: Fall Additional Impressions: Contusion of multiple sites Hip fracture, left Skin tear Departure Information Dispostion Admitted as an inpatient Condition FAIR Referrals Franco Singh D.O. (PCP) Forms HOME CARE DOCUMENTATION FORM, IMPORTANT VISIT INFORMATION Patient Instructions My [facility] Problem Qualifiers
[2017-07-10] MEDS: LACTATED RINGER'S 1000ML 1,000 ML IV SCH ×3 (03:53→20:30)
[2017-07-10] MEDS ORDERED: CEFAZOLIN 2000 MG/60 ML D5W 60 ML IV SCH (06:00)
[2017-07-10] MEDS: INSULIN ASPART 100 UNITS/ML 3 ML PEN SC SCH ×3 (06:30→18:00)
[2017-07-10] MEDS: HEPARIN SOD 5000 UNIT/0.5 ML CARP SQ SCH ×3 (06:31→21:48)
[2017-07-10 07:25] LABS: HEMATOCRIT 40.6 % (37-47); MEAN CELL VOLUME 77.2 fL (80-100); MEAN CORPUSCULAR HEMOGLOBIN 25.5 pg (25-34); RED BLOOD COUNT 5.26 M/uL (4.2-5.4)
[2017-07-10 07:37] LABS: BUN/CREATININE RATIO 13.7 (10-20); CALCIUM 7.8 mg/dl (8.5-10.1); CREATININE 1.1 mg/dl (0.60-1.20); POTASSIUM 4.3 mmol/L (3.5-5.1)
[2017-07-10] MEDS: OXYCODONE HCL IR 5 MG TAB (IMMEDIATE RELEASE) PO PRN ×2 (08:02→12:25)
[2017-07-10 08:05] LABS: PLATELET COUNT 81 K/uL (130-400)
[2017-07-10 08:07] LABS: PLT ESTIMATE DECREASED
[2017-07-10] MEDS: HYDROCORTISONE 2.5% CR 30 GM TUBE EXT SCH (08:20)
[2017-07-10] MEDS: LEVETIRACETAM 500 MG TAB PO SCH ×2 (08:20→21:00)
[2017-07-10] MEDS: FLUTICASONE PROPIONATE NA SPR 16 GM BTL NAE SCH (08:20)
[2017-07-10] MEDS: METOPROLOL SUCC 25MG EXT REL TAB PO SCH (08:21)
[2017-07-10] MEDS: FUROSEMIDE 20 MG TAB PO SCH (08:22)
[2017-07-10] MEDS: VENLAFAXINE HCL XR 150 MG CAPXR PO SCH (08:22)
[2017-07-10] MEDS: POTASSIUM CHLORIDE 10 MEQ TABCR PO SCH ×2 (08:23→21:00)
[2017-07-10] MEDS: RIFAXIMIN TAB 550 MG TAB PO SCH ×2 (08:23→21:00)
[2017-07-10] MEDS: CALCIUM 600MG + VIT D 400 IU TAB PO SCH ×3 (08:23→21:00)
[2017-07-10] MEDS: SPIRONOLACTONE 25 MG TAB PO SCH (08:24)
[2017-07-10] MEDS: PANTOprazole SOD 40 MG TAB PO SCH ×2 (08:24→21:00)
[2017-07-10] MEDS: GABAPENTIN 100 MG CAP PO SCH ×2 (08:24→21:00)
[2017-07-10] MEDS ORDERED: HYDROmorphone INJ 0.5 MG/0.5 ML SYR IV ONE (14:45)
[2017-07-10] MEDS ORDERED: HYDROmorphone INJ 0.5 MG/0.5 ML SYR IV PRN ×3 (15:45→19:45)
--- NOTE | 2017-07-10 16:11 | Family Medicine Progress Note ---
Progress Note Date of Service Jul 10, 2017. Subjective Pt evaluation today including: conversation w/ patient, physical exam, chart review, lab review -Today the patient describes pain in her left hip. Pt says that she cannot move her left leg. -Pt related to me a significant history of seizure. Currently on Keppra. -Pt does remark that her seizure disorder has gotten worse, with more frequent episodes. -She is unsure if the seizure caused the fall. -Today pt denies SOB, chest pain, palpitation, fevers, chills -Pt does report a resent history of chronic abdominal pain. -Pt says that she is scheduled to have an EGD next week. Constitutional: No fever, No chills, No sweats Respiratory: No cough, No sputum, No wheezing, No shortness of breath Cardiovascular: No chest pain, No edema, No palpitations Abdomen: + pain, No nausea, No vomiting, No diarrhea Female : No dysuria Medications Current Inpatient Medications Medications (Trade) Dose Ordered Sig/Alyse Route Start Time Stop Time Status Last Admin Dose Admin Lactated Ringer's 1,000 ml @ 125 mls/hr Q8H IV 07/09/17 19:52 08/08/17 19:51 07/10/17 12:05 125 MLS/HR Cefazolin Sodium 60 ml @ 120 mls/hr PREOP IV 07/10/17 06:00 07/10/17 18:00 Ondansetron HCl (Zofran Inj) 4 mg Q6H PRN IV 07/09/17 20:00 08/08/17 19:59 Oxycodone HCl (Roxicodone Immediate Rel Tab) 5 mg Q4H PRN PO 07/09/17 20:00 07/23/17 19:59 07/10/17 12:25 5 MG Morphine Sulfate (MoRPHine SULFATE INJ) 2 mg Q2H PRN IV 07/09/17 20:00 07/23/17 19:59 Future Hold Naloxone HCl (Narcan Inj) 0.1 mg PRN PRN IV 07/09/17 20:00 08/08/17 19:59 Senna/Docusate Sodium (Senokot S Tab) 2 tab HS PO 07/09/17 21:00 08/08/17 20:59 07/09/17 22:38 2 TAB Polyethylene (Miralax Powder Packet) 17 gm DAILY PRN PO 07/09/17 20:00 08/08/17 19:59 Bisacodyl (Dulcolax Supp) 10 mg DAILY PRN IN 07/09/17 20:00 08/08/17 19:59 Sodium Biphosphate/ Sodium Phosphate (Fleet Enema) 132 ml PRN PRN IN 07/09/17 20:00 Acetaminophen (Tylenol Tab) 650 mg Q4H PRN PO 07/09/17 20:00 08/08/17 19:59 Al Hydrox/Mg Hydrox/Simethicone (Maalox Max Susp) 15 ml Q4H PRN PO 07/09/17 20:00 08/08/17 19:59 Magnesium Hydroxide (Milk Of Magnesia Susp) 30 ml Q6H PRN PO 07/09/17 20:00 08/08/17 19:59 Glucose (Glucose 40% Gel) 15-30 GRAMS 15 GRAMS... UD PRN PO 07/09/17 20:00 08/08/17 19:59 Glucose (Glucose Chew Tab) 4-8 Tablets 4 Tabl... UD PRN PO 07/09/17 20:00 08/08/17 19:59 Dextrose (Dextrose 50% 50ML Syringe) 25-50ML OF 50% DW IV FOR... UD PRN IV 07/09/17 20:00 08/08/17 19:59 Glucagon (Glucagon Inj) 1 mg UD PRN SQ 07/09/17 20:00 08/08/17 19:59 Bisacodyl (Dulcolax Tab) 5 mg DAILY PRN PO 07/09/17 20:15 08/08/17 20:14 Calcium/Vitamin D (Caltrate Plus Tab) 1 tab TID PO 07/09/17 21:00 08/08/17 20:59 07/10/17 14:38 1 TAB Fluticasone Propionate (Flonase Nasal [place]) 2 sprays DAILY KODY 07/10/17 09:00 08/09/17 08:59 07/10/17 08:20 2 SPRAYS Furosemide (Lasix Tab) 20 mg DAILY PO 07/10/17 09:00 08/09/17 08:59 07/10/17 08:22 20 MG Gabapentin (Neurontin Cap) 100 mg BID PO 07/09/17 21:00 08/08/17 20:59 07/10/17 08:24 100 MG Hydrocortisone (Hydrocortisone 2.5% Crm) 1 appln DAILY EXT 07/10/17 09:00 08/09/17 08:59 07/10/17 08:20 1 APPLN Metoprolol Succinate (Toprol Xl Tab) 12.5 mg DAILY PO 07/10/17 09:00 08/09/17 08:59 07/10/17 08:21 12.5 MG Potassium Chloride (Klor-Con M10) 10 meq BID PO 07/09/17 21:00 08/08/17 20:59 07/10/17 08:23 10 MEQ Rifaximin (Xifaxan Tab) 550 mg BID PO 07/09/17 21:00 08/08/17 20:59 07/10/17 08:23 550 MG Venlafaxine HCl (effeXOR EXTENDED REL CAP) 150 mg DAILY PO 07/10/17 09:00 08/09/17 08:59 07/10/17 08:22 150 MG Pantoprazole Sodium (Protonix Tab) 40 mg BID PO 07/09/17 21:00 08/08/17 20:59 07/10/17 08:24 40 MG Levetiracetam (Keppra Tab) 1,000 mg BID PO 07/09/17 21:00 08/08/17 20:59 07/10/17 08:20 1,000 MG Spironolactone (Aldactone Tab) 50 mg DAILY PO 07/10/17 09:00 08/09/17 08:59 07/10/17 08:24 50 MG Heparin Sodium (Porcine) (Heparin Sq 5000 Unit/0.5ml) 5,000 unit Q8 SQ 07/09/17 22:00 08/08/17 21:59 07/10/17 06:31 5,000 UNIT Insulin Aspart (novoLOG ASPART) SLIDING SCALE If C... Q6 SC 07/10/17 06:00 08/09/17 05:59 07/10/17 12:15 1 UNITS Hydromorphone HCl (Dilaudid Inj) 0.5 mg 5XDQ4H PRN IV 07/10/17 15:45 07/24/17 15:44 UNV Objective Vital Signs Date Time Temp Pulse Resp B/P (MAP) Pulse Ox O2 Delivery O2 Flow Rate FiO2 07/10/17 15:38 36.5 105 129/82 (98) 94 Nasal Cannula 4.0 07/10/17 12:28 103 18 127/82 (97) 93 4.0 07/10/17 07:30 94 Nasal Cannula 4.0 07/10/17 06:44 36.8 97 18 114/76 (89) 94 Nasal Cannula 4.0 07/09/17 23:02 36.4 93 18 117/83 (94) 95 Nasal Cannula 4.0 07/09/17 22:05 95 Nasal Cannula 4.0 07/09/17 21:53 94 Nasal Cannula 4.0 07/09/17 21:30 36.9 99 21 108/79 93 07/09/17 20:39 108/79 07/09/17 20:18 99 21 93 07/09/17 19:48 98 20 94 07/09/17 19:23 91 07/09/17 19:00 90 Room Air 07/09/17 19:00 95 18 108/79 95 Nasal Cannula 2.0 07/09/17 17:31 113/92 07/09/17 17:23 98 20 102/67 97 Room Air 07/09/17 16:01 36.9 115 18 126/85 92 Room Air Physical Exam General Appearance: + mild distress Neck: supple, no adenopathy Respiratory/Chest: chest non-tender, lungs clear, normal breath sounds, no respiratory distress, no accessory muscle use Cardiovascular: regular rate, rhythm, no edema, no gallop, no JVD, no murmur Abdomen: normal bowel sounds, non tender, soft, no organomegaly, no pulsatile mass 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iatric: alert, normal mood/affect, oriented x 3 Skin: normal color, warm/dry, no rash Laboratory Results 07/10/17 06:51 07/10/17 06:51 Test 07/09/17 17:22 07/09/17 20:30 07/09/17 20:48 07/10/17 06:51 Immature Granulocyte % (Auto) 0.7 % White Blood Count 4.14 K/uL (4.8-10.8) Red Blood Count 5.61 M/uL (4.2-5.4) 5.26 M/uL (4.2-5.4) Hemoglobin 14.8 g/dL (12.0-16.0) Hematocrit 42.5 % (37-47) Mean Corpuscular Volume 75.8 fL (80-100) 77.2 fL (80-100) Mean Corpuscular Hemoglobin 26.4 pg (25-34) 25.5 pg (25-34) Mean Corpuscular Hemoglobin Concent 34.8 g/dl (32-36) 33.0 g/dl (32-36) Platelet Count 81 K/uL (130-400) Neutrophils (%) (Auto) 54.9 % Lymphocytes (%) (Auto) 31.6 % Monocytes (%) (Auto) 10.4 % Eosinophils (%) (Auto) 1.4 % Basophils (%) (Auto) 1.0 % Neutrophils # (Auto) 2.27 K/uL (1.4-6.5) Lymphocytes # (Auto) 1.31 K/uL (1.2-3.4) Monocytes # (Auto) 0.43 K/uL (0.11-0.59) Eosinophils # (Auto) 0.06 K/uL (0-0.5) Basophils # (Auto) 0.04 K/uL (0-0.2) Immature Granulocyte # (Auto) 0.03 K/uL (0.00-0.02) Large Platelets 1+ Prothrombin Time 13.6 SECONDS (9.0-12.0) Prothromb Time International Ratio 1.3 (0.9-1.1) Activated Partial Thromboplast Time 34.4 SECONDS (21.0-31.0) Partial Thromboplastin Ratio 1.3 Total Bilirubin 2.5 mg/dl (0.2-1) Direct Bilirubin 1.4 mg/dl (0-0.2) Aspartate Amino Transf (AST/SGOT) 91 U/L (15-37) Alanine Aminotransferase (ALT/SGPT) 37 U/L (12-78) Alkaline Phosphatase 233 U/L (45-117) Total Protein 6.9 gm/dl (6.4-8.2) Albumin 2.2 gm/dl (3.4-5.0) Procalcitonin < 0.05 ng/ml (0-0.5) Urine Color ORANGE Urine Appearance CLEAR (CLEAR) Urine pH 6.0 (4.5-7.5) Urine Specific [place] 1.013 (1.000-1.030) Urine Protein NEG (NEG) Urine Glucose (UA) 2+ (NEG) Urine Ketones NEG (NEG) Urine Occult Blood TRACE (NEG) Urine Nitrite NEG (NEG) Urine Bilirubin NEG (NEG) Urine Urobilinogen NEG (NEG) Urine Leukocyte Esterase NEG (NEG) Urine WBC (Auto) 1-5 /hpf (0-5) Urine RBC (Auto) 0-4 /hpf (0-4) Urine Hyaline Casts (Auto) 5-10 /lpf (0-5) Urine Epithelial Cells (Auto) 20-30 /lpf (0-5) Urine Bacteria (Auto) NEG (NEG) Urine Pathogenic Casts 1-5 GRANULAR CASTS /lpf (0) RDW Standard Deviation 46.7 fL (36.4-46.3) RDW Coefficient of Variation 16.6 % (11.5-14.5) Platelet Estimate DECREASED Anion Gap 5.0 mmol/L (3-11) Est Creatinine Clear Calc Drug Dose 52.1 ml/min Estimated GFR () 61.4 Estimated GFR (Non- 53.0 BUN/Creatinine Ratio 13.7 (10-20) Calcium Level 7.8 mg/dl (8.5-10.1) Test 07/10/17 11:59 Bedside Glucose 193 mg/dl (70-90) Assessment and Plan Assessment and Plan 62 year old with Cirrhosis, Seizure Disorder and Hepatitis C, with fall and displaced left intertrochanteric hip fracture. Left Intertrochanteric Hip Fracture - NPO - Pre-operative EKG, CXR - Ortho consulted, pt taken to surgery evening of 25Aug - Type and Cross, coag studies - Pain controlled with Tylenol, Dilaudid IV PRN Right Hilar Opacity - Unclear if infective vs nodule - Procalcitonin <.05 - CT non-contrast for further characterization is overall unremarkable - Patient is not having new O2 requirements Head Injury due to Fall - Non-contrast head CT negative for acute pathology Fall - ? sec to hypotension, orthostasis, seizure. Follow COPD - home inhalers Diabetes mellitus - Hold home medications - SSI with AC/HS checks - Once fasting q6h checks Seizure Disorder - Keppra level pending - Continue Keppra Cirrhosis/Portal HTN 2/2 Hep C and Previous EtOH - Continue Lasix, Spironolactone - Continue Rifaximin Thrombocytopenia - 81k - Appears chronic based on previous Plt Counts; like 2/2 Cirrhosis - No evidence of active bleeding - This does not preclude use of prophylactic anticoagulation Chronic pain from spine DDD - On prn oxycodone at home HTN - Continue Metoprolol Depression - Continue Effexor Hepatitis C - Not on treatment DVT Prophylaxis - SCD Knee, LIZET Hose - Heparin 5000 TID Code Status - Level I Full Code Disposition - Med/Surg - OT and PT evaluations Reviewed: Pt Seen/Exam by Me History lot of pain in the left hip. pain medications not helping much Constitutional: denies: fever Respiratory: negative: short of breath Cardiovascular: denies chest pain Gastrointestinal/Abdominal: negative: abdominal pain General Appearance: moderate distress (from left hip pain) Respiratory: lungs clear, no respiratory distress Cardiovascular: regular rate, rhythm Extremities: other (left hip externally rotated) 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iatric: alert, oriented x 3 Assessment/Plan Resident Physician Supervision Note: I was present with Dr. Levin in bedside. I verified the green history and physical, reviewed labs and image studies, discussed the case with the resident and agree with the findings and care plan.
[2017-07-10] MEDS ORDERED: FENTANYL CITRATE INJ 50 MCG/1 ML 2 ML VIAL ONE (17:45)
[2017-07-10] MEDS ORDERED: BUPIVACAINE/EPINEPHRINE 0.5% MPF 1:200,000 10 ML VIAL ONE (18:01)
--- NOTE | 2017-07-10 18:05 | History & Physical Bridge Note ---
H&P Re-Evaluation Bridge Note: I have examined the patient, reviewed the History & Physical and in the interval since the performance of the History & Physical I have noted the following changes of clinical significance: No changes noted Plan ORIF L hip intertroch fracture with troch nail
--- NOTE | 2017-07-10 18:05 | Orthopedic Consultation ---
Orthopedic Consultation Date of Consultation: Jul 10, 2017. Attending Physician: Gracie Castaneda M.D. Reason for Consultation: Left intertroch fx History of Present Illness Patient fell while taking care of her dog outside. Ambulance was called and she was brought to ED. xrays show left intertroch fx Past Medical/Surgical History Medical Problems: (1) Acute exacerbation of chronic low back pain Status: Acute (2) Anxiety Status: Acute (3) Back pain Status: Acute (4) Chronic abdominal pain Status: Acute (5) Chronic diarrhea Status: Acute (6) Complaints of total body pain Status: Acute (7) Contusion of multiple sites Status: Acute (8) Elevated bilirubin Status: Acute (9) Episodic overuse of medication Status: Acute (10) Facial pain Status: Acute (11) Fatigue Status: Acute (12) Hallucinations Status: Acute (13) Headache Status: Acute (14) Hyperglycemia Status: Acute (15) Hyperglycemia Status: Acute (16) Migraine Status: Acute (17) Migraine Status: Acute (18) Migraine Status: Acute (19) Migraine Status: Acute (20) Migraine Status: Acute (21) Migraine Status: Acute (22) Migraine Status: Acute (23) Opioid withdrawal Status: Acute (24) Paranoia Status: Acute (25) Pyelonephritis Status: Acute (26) Renal colic on left side Status: Acute (27) Skin tear Status: Acute (28) Thrombocytopenia Status: Acute (29) Vomiting Status: Acute Family History Adopted Social History Smoking Status: Current Every Day Smoker Smokeless Tobacco Use: No Alcohol Use: none Drug Use: none Marital Status: Housing Status: lives with friends Occupation Status: disabled Allergies Coded Allergies: Coconut (Verified Allergy, Unknown, ANAPHYLAXIS, 05/11/17) Modafinil (Verified Adverse Reaction, Severe, MAKES HYPER, 05/11/17) Sulfamethoxazole (Verified Adverse Reaction, Intermediate, PT STATES NOT GOOD FOR LIVER, 05/11/17) PT STATES (NOT GOOD FOR LIVER) Zolpidem (Verified Adverse Reaction, Intermediate, LIVER PROBLEMS, 05/11/17 ) Morphine (Verified Adverse Reaction, Mild, hallucinations, 05/11/17) Home Medications Scheduled Calcium Carbonate-Vitamin D W/ (Caltrate 600 Plus), 1 TABLET PO TID Cranberry (Vaccinium Macrocarp (Cranberry), 500 MG PO DAILY Fluticasone Propionate (Fluticasone Propionate), 2 SPRAYS KODY DAILY Furosemide (Furosemide), 20 MG PO DAILY Gabapentin (Gabapentin), 100 MG PO BID Hydrocortisone (Hydrocortisone), 1 APPLN TOP PRN UD Insulin Aspart (Novolog Flexpen), SC AC Insulin Glargine (Toujeo Solostar), 80 UNITS SQ DAILY Lansoprazole (Prevacid), 30 MG PO BID Levetiracetam (Levetiracetam), 1,000 MG PO BID Metoprolol Succinate (Metoprolol Succinate ER), 12.5 MG PO DAILY Potassium Chloride (Micro-K Ext Rel), 10 MEQ PO BID Rifaximin (Xifaxan), 550 MG PO BID Spironolactone (Aldactone), 50 MG PO DAILY Venlafaxine Hcl (Effexor Extended Rel), 150 MG PO DAILY Scheduled PRN Bisacodyl (Bisacodyl), 5 MG PO UD PRN for constipation Oxycodone Immediate Rel Tab (Roxicodone Ir), 10 MG PO TID PRN for Severe Pain Current Inpatient Medications Current Inpatient Medications Medications (Trade) Dose Ordered Sig/Alyse Route Start Time Stop Time Status Last Admin Dose Admin Lactated Ringer's 1,000 ml @ 125 mls/hr Q8H IV 07/09/17 19:52 08/08/17 19:51 07/10/17 12:05 125 MLS/HR Ondansetron HCl (Zofran Inj) 4 mg Q6H PRN IV 07/09/17 20:00 08/08/17 19:59 Oxycodone HCl (Roxicodone Immediate Rel Tab) 5 mg Q4H PRN PO 07/09/17 20:00 07/23/17 19:59 07/10/17 12:25 5 MG Morphine Sulfate (MoRPHine SULFATE INJ) 2 mg Q2H PRN IV 07/09/17 20:00 07/23/17 19:59 Future Hold Naloxone HCl (Narcan Inj) 0.1 mg PRN PRN IV 07/09/17 20:00 08/08/17 19:59 Senna/Docusate Sodium (Senokot S Tab) 2 tab HS PO 07/09/17 21:00 08/08/17 20:59 07/09/17 22:38 2 TAB Polyethylene (Miralax Powder Packet) 17 gm DAILY PRN PO 07/09/17 20:00 08/08/17 19:59 Bisacodyl (Dulcolax Supp) 10 mg DAILY PRN ID 07/09/17 20:00 08/08/17 19:59 Sodium Biphosphate/ Sodium Phosphate (Fleet Enema) 132 ml PRN PRN ID 07/09/17 20:00 Acetaminophen (Tylenol Tab) 650 mg Q4H PRN PO 07/09/17 20:00 08/08/17 19:59 Al Hydrox/Mg Hydrox/Simethicone (Maalox Max Susp) 15 ml Q4H PRN PO 07/09/17 20:00 08/08/17 19:59 Magnesium Hydroxide (Milk Of Magnesia Susp) 30 ml Q6H PRN PO 07/09/17 20:00 08/08/17 19:59 Glucose (Glucose 40% Gel) 15-30 GRAMS 15 GRAMS... UD PRN PO 07/09/17 20:00 08/08/17 19:59 Glucose (Glucose Chew Tab) 4-8 Tablets 4 Tabl... UD PRN PO 07/09/17 20:00 08/08/17 19:59 Dextrose (Dextrose 50% 50ML Syringe) 25-50ML OF 50% DW IV FOR... UD PRN IV 07/09/17 20:00 08/08/17 19:59 Glucagon (Glucagon Inj) 1 mg UD PRN SQ 07/09/17 20:00 08/08/17 19:59 Bisacodyl (Dulcolax Tab) 5 mg DAILY PRN PO 07/09/17 20:15 08/08/17 20:14 Calcium/Vitamin D (Caltrate Plus Tab) 1 tab TID PO 07/09/17 21:00 08/08/17 20:59 07/10/17 14:38 1 TAB Fluticasone Propionate (Flonase Nasal [place]) 2 sprays DAILY KODY 07/10/17 09:00 08/09/17 08:59 07/10/17 08:20 2 SPRAYS Furosemide (Lasix Tab) 20 mg DAILY PO 07/10/17 09:00 08/09/17 08:59 07/10/17 08:22 20 MG Gabapentin (Neurontin Cap) 100 mg BID PO 07/09/17 21:00 08/08/17 20:59 07/10/17 08:24 100 MG Hydrocortisone (Hydrocortisone 2.5% Crm) 1 appln DAILY EXT 07/10/17 09:00 08/09/17 08:59 07/10/17 08:20 1 APPLN Metoprolol Succinate (Toprol Xl Tab) 12.5 mg DAILY PO 07/10/17 09:00 08/09/17 08:59 07/10/17 08:21 12.5 MG Potassium Chloride (Klor-Con M10) 10 meq BID PO 07/09/17 21:00 08/08/17 20:59 07/10/17 08:23 10 MEQ Rifaximin (Xifaxan Tab) 550 mg BID PO 07/09/17 21:00 08/08/17 20:59 07/10/17 08:23 550 MG Venlafaxine HCl (effeXOR EXTENDED REL CAP) 150 mg DAILY PO 07/10/17 09:00 08/09/17 08:59 07/10/17 08:22 150 MG Pantoprazole Sodium (Protonix Tab) 40 mg BID PO 07/09/17 21:00 08/08/17 20:59 07/10/17 08:24 40 MG Levetiracetam (Keppra Tab) 1,000 mg BID PO 07/09/17 21:00 08/08/17 20:59 07/10/17 08:20 1,000 MG Spironolactone (Aldactone Tab) 50 mg DAILY PO 07/10/17 09:00 08/09/17 08:59 07/10/17 08:24 50 MG Heparin Sodium (Porcine) (Heparin Sq 5000 Unit/0.5ml) 5,000 unit Q8 SQ 07/09/17 22:00 08/08/17 21:59 07/10/17 06:31 5,000 UNIT Insulin Aspart (novoLOG ASPART) SLIDING SCALE If C... Q6 SC 07/10/17 06:00 08/09/17 05:59 07/10/17 12:15 1 UNITS Hydromorphone HCl (Dilaudid Inj) 0.5 mg 5XDQ4H PRN IV 07/10/17 15:45 07/24/17 15:44 Physical Exam Date Time Temp Pulse Resp B/P (MAP) Pulse Ox O2 Delivery O2 Flow Rate FiO2 07/10/17 17:33 36.9 16 120/70 (87) 93 Nasal Cannula 4 07/10/17 15:38 36.5 105 18 129/82 (98) 94 Nasal Cannula 4.0 07/10/17 12:28 103 18 127/82 (97) 93 4.0 07/10/17 07:30 94 Nasal Cannula 4.0 07/10/17 06:44 36.8 97 18 114/76 (89) 94 Nasal Cannula 4.0 07/09/17 23:02 36.4 93 18 117/83 (94) 95 Nasal Cannula 4.0 07/09/17 22:05 95 Nasal Cannula 4.0 07/09/17 21:53 94 Nasal Cannula 4.0 07/09/17 21:30 36.9 99 21 108/79 93 07/09/17 20:39 108/79 07/09/17 20:18 99 21 93 07/09/17 19:48 98 20 94 07/09/17 19:23 91 07/09/17 19:00 90 Room Air 07/09/17 19:00 95 18 108/79 95 Nasal Cannula 2.0 General Appearance: no apparent distress Head: normocephalic Eyes: normal inspection Neck: supple Cardiovascular: regular rate, rhythm Abdomen/GI: soft Extremities/Musculoskelatal: + pertinent finding (TTP L hip, pain with rotation , limb is externally rotated, distally NVI) Laboratory Results Last 24 Hours Test 07/09/17 20:30 07/09/17 20:48 07/09/17 22:26 07/10/17 06:16 Urine Color ORANGE Urine Appearance CLEAR Urine pH 6.0 Urine Specific [place] 1.013 Urine Protein NEG Urine Glucose (UA) 2+ Urine Ketones NEG Urine Occult Blood TRACE Urine Nitrite NEG Urine Bilirubin NEG Urine Urobilinogen NEG Urine Leukocyte Esterase NEG Urine WBC (Auto) 1-5 /hpf Urine RBC (Auto) 0-4 /hpf Urine Hyaline Casts (Auto) 5-10 /lpf Urine Epithelial Cells (Auto) 20-30 /lpf Urine Bacteria (Auto) NEG Urine Pathogenic Casts 1-5 GRANULAR CASTS /lpf Bedside Glucose 176 mg/dl 218 mg/dl Test 07/10/17 06:25 07/10/17 06:51 07/10/17 11:59 Bedside Glucose 214 mg/dl 193 mg/dl White Blood Count 6.50 K/uL Red Blood Count 5.26 M/uL Hemoglobin 13.4 g/dL Hematocrit 40.6 % Mean Corpuscular Volume 77.2 fL Mean Corpuscular Hemoglobin 25.5 pg Mean Corpuscular Hemoglobin Concent 33.0 g/dl RDW Standard Deviation 46.7 fL RDW Coefficient of Variation 16.6 % Platelet Count 81 K/uL Platelet Estimate DECREASED Sodium Level 138 mmol/L Potassium Level 4.3 mmol/L Chloride Level 110 mmol/L Carbon Dioxide Level 23 mmol/L Anion Gap 5.0 mmol/L Blood Urea Nitrogen 15 mg/dl Creatinine 1.10 mg/dl Est Creatinine Clear Calc Drug Dose 52.1 ml/min Estimated GFR () 61.4 Estimated GFR (Non- 53.0 BUN/Creatinine Ratio 13.7 Random Glucose 221 mg/dl Calcium Level 7.8 mg/dl Assessment & Plan Left intertroch fracture Xrays show mildly displaced L intertroch. Plan ORIF L intertroch fx. R/B/A discussed she wishes to proceed.
[2017-07-10] MEDS ORDERED: FENTANYL CITRATE INJ 50 MCG/1 ML 2 ML VIAL IV PRN (18:45)
[2017-07-10] MEDS ORDERED: ATROPINE SULFATE 0.1 MG/ML 5ML SYR IV PRN (18:45)
[2017-07-10] MEDS ORDERED: ONDANSETRON INJ 2 MG/ML 2 ML VIAL IV PRN ×2 (18:45→19:45)
[2017-07-10] MEDS ORDERED: EpHEDrine SULFATE INJ 50 MG/ML AMP IV PRN (18:45)
[2017-07-10] MEDS ORDERED: ONDANSETRON INJ 2 MG/ML 2 ML VIAL ONE (19:07)
[2017-07-10] MEDS ORDERED: DEXAMETHASONE SOD INJ 4 MG/ML VIAL ONE (19:07)
[2017-07-10] MEDS ORDERED: LIDOCAINE HCL 2% 2 ML VIAL (20MG/ML) ONE (19:07)
[2017-07-10] MEDS ORDERED: PROPOFOL IV EMULSION 10 MG/ML 20 ML VIAL IV ONE (19:07)
[2017-07-10] MEDS ORDERED: CISATRACURIUM BESYLATE IV SOLN 2 MG/ML 10 ML VIAL ONE (19:07)
[2017-07-10] MEDS ORDERED: GLYCOPYRROLATE INJ 0.2 MG/ML VIAL ONE (19:21)
[2017-07-10] MEDS ORDERED: NEOSTIGMINE METHYLSULFATE 5 MG/5 ML SYR ONE (19:21)
--- NOTE | 2017-07-10 19:40 | DIAGNOSTIC IMAGING REPORT ---
Radiology LEFT HIP OR FILMS CLINICAL HISTORY: 62 years-old Female presenting with LT TROCH NAIL. TECHNIQUE: 4 fluoroscopic spot image(s) obtained as part of an intraoperative procedure. COMPARISON: 07/09/2017. FINDINGS/IMPRESSION: Dynamic screw fixation of the left femoral neck with interlocking intramedullary nail through the proximal left femur metadiaphysis. An additional interlocking screw noted at the level of the proximal diaphysis. Anatomic alignment across the intertrochanteric fracture. Please see surgical report for further details. Fluoroscopy dosage (mGy): Not available. Fluoroscopy time: 1 minute 22 seconds. Number of fluoroscopic spot images: 4. Electronically signed by: Flavio Vázquez M.D. 07/10/2017 7:39 PM Dictated Date/Time: 07/10/2017 7:38 PM
--- NOTE | 2017-07-10 19:41 | [facility] Operative Report ---
Operative Report Operative Date Jul 10, 2017. Pre-Operative Diagnosis Left intertrochanteric fracture Post-Operative Diagnosis same Procedure(s) Performed ORIF left intertrochanteric hip fracture with trochanteric Nail Surgeon Dr Urban Manager Business Process Surgeon(s) none Estimated Blood Loss 150ml Findings Above Specimens none Drains none Anesthesia Gen. Complication(s) None Disposition Recovery Room / PACU Indications 62-year-old female sustained a fall. X-rays demonstrated a left intertrochanteric hip fracture. She wishes to proceed with operative fixation. She is cleared medically. Description of Procedure Risks benefits and alternatives of surgery including but not limited to infection, DVT, PE, pain, stiffness, need for surgery, damage to blood vessels, damage to nerves or risks of anesthesia, were discussed with the patient and her family and they wished to proceed. Patient was identified in the laterality was confirmed and marked. They received a preoperative antibiotic. The patient was transferred to the fracture table. The operative limb was placed in traction and the well leg was placed in a well leg rodriguez that was well-padded. The arms were well-padded and placed out of the way of the surgical field. I confirmed reduction of the fracture with fluoroscopy with the patient's fracture table and made adjustments to fracture table alignment is necessary to reduce the fracture appropriately. The hip was then prepped and draped in the usual standard manner with ChloraPrep. I made a longitudinal incision proximal to the greater trochanter. I sharply incised through the skin and then used Bovie electrocautery to achieve hemostasis. I incised through the fascia and then bluntly dissected down to the tip of the greater trochanter. Under fluoroscopic guidance I placed a guide pin into the greater trochanter and ensured proper placement on both AP and lateral fluoroscopy views. Once I was satisfied with the position of the guide. I advanced this distally. I then overreamed with the 17 mm proximal reamer. I then placed a Synthes trochanteric fixation nail into position. The size of the nail was a short nail. Then I placed the guide arm onto the nail insertion device made a stab incision more distally and then placed the drill guide for the helical blade. I adjusted the position of the nail as necessary to ensure that the guidepin was center center in the femoral head. Once I was satisfied with the position of the pin advanced it to the appropriate position of the femoral head. I then measured and then reamed the lateral cortex and then reamed down into the femoral head. I then inserted a size [address] I then locked the set screw proximally and then compressed the fracture. Then through a stab incision I placed a interlocking screw through the drill guide. I confirmed hardware placement and maintenance of reduction on AP and lateral fluoroscopy views. Wounds were then thoroughly irrigated. The fascia was closed with interrupted #1 Vicryl suture. Subcutaneous tissues closed with interrupted 2-0 Vicryl suture and the skin with mark. Sterile dressings applied. All needle and sponge counts were correct at the end of the procedure the patient was transferred to the PACU in stable condition without apparent complication. I attest to the content of the Intraoperative Record and any orders documented therein. Any exceptions are noted below.
[2017-07-10] MEDS ORDERED: MAGNESIUM HYDROXIDE SUSP 30 ML UDC PO PRN (19:45)
[2017-07-10] MEDS ORDERED: [UNRECOGNIZED DRUG - REMARK] PRN (19:45)
[2017-07-10] MEDS ORDERED: COUGH DROP (SUGAR FREE) LOZ 24 LOZ/1 BOX PO PRN (19:45)
--- NOTE | 2017-07-10 20:43 | Anesthesiology Progress Note ---
Anesthesia Post Op Note Date & Time Jul 10, 2017 at 20:42 Vital Signs Pain Intensity: 0 Vital Signs Past 12 Hours Date Time Temp Pulse Resp B/P (MAP) Pulse Ox O2 Delivery O2 Flow Rate FiO2 07/10/17 20:35 110 20 135/90 93 Oxymask 4 07/10/17 20:25 108 17 146/85 95 Oxymask 6 07/10/17 20:15 108 20 135/84 95 Oxymask 6 07/10/17 20:05 112 23 148/86 95 Oxymask 10 07/10/17 19:59 36.7 110 16 142/92 95 Oxymask 10 07/10/17 17:33 36.9 16 120/70 (87) 93 Nasal Cannula 4 07/10/17 15:38 36.5 105 18 129/82 (98) 94 Nasal Cannula 4.0 07/10/17 12:28 103 18 127/82 (97) 93 4.0 Notes Mental Status: alert / awake / arousable, participated in evaluation Pt Amnestic to Procedure: Yes Nausea / Vomiting: adequately controlled Pain: adequately controlled Airway Patency, RR, SpO2: stable & adequate BP & HR: stable & adequate Hydration State: stable & adequate Anesthetic Complications: no major complications apparent Pt on 4L O2 at baseline. VSS with O2 sats at baseline.
[2017-07-10] MEDS: DOCUSATE SODIUM/SENNA 50/8.6MG TAB PO SCH (21:00)
[2017-07-10] MEDS ORDERED: NURSING DECISION MEDICATION ORDER SCH (23:30)
[2017-07-11] VITALS (7 sets, daily range): BP systolic 117–133; BP diastolic 73–83; PULSE 98–116; TEMP 36.5–37.5; O2SAT 89–94
[2017-07-11] MEDS: CEFAZOLIN IV 2,000 MG in DEXTROSE 5% 50ML 50 ML IV SCH ×2 (01:45→09:49)
[2017-07-11] MEDS: OXYCODONE HCL IR 5 MG TAB (IMMEDIATE RELEASE) PO PRN ×2 (03:09→09:45)
[2017-07-11] MEDS: LACTATED RINGER'S 1000ML 1,000 ML IV SCH (04:28)
[2017-07-11] MEDS: ENOXAPARIN 40 MG/0.4 ML SYR SQ SCH (06:03)
[2017-07-11 08:52] LABS: HEMATOCRIT 35.2 % (37-47); MEAN CELL VOLUME 77.5 fL (80-100); MEAN CORPUSCULAR HEMOGLOBIN 25.1 pg (25-34); MEAN CORPUSCULAR HGB CONC 32.4 g/dl (32-36); RED BLOOD COUNT 4.54 M/uL (4.2-5.4); WHITE BLOOD COUNT 11.93 K/uL (4.8-10.8)
[2017-07-11 08:57] LABS: MEAN PLATELET VOLUME 11.2 fL (7.4-10.4); PLATELET COUNT 88 K/uL (130-400)
[2017-07-11 09:21] LABS: ANISOCYTOSIS PRESENT; BASO % 0.1 %; BASO ABS # 0.01 K/uL (0-0.2); COMPLETE YES; HYPERSEGMENTED POLYS 1+; IG% 0.5 %; LYMPH ABS # 0.83 K/uL (1.2-3.4); MONO % 7.3 %; NEUT % 85.1 %; PLT ESTIMATE DECREASED
[2017-07-11] MEDS: VENLAFAXINE HCL XR 150 MG CAPXR PO SCH (09:31)
[2017-07-11] MEDS: FUROSEMIDE 20 MG TAB PO SCH (09:31)
[2017-07-11] MEDS: SPIRONOLACTONE 25 MG TAB PO SCH (09:31)
[2017-07-11 09:32] LABS: BUN/CREATININE RATIO 25.8 (10-20); CALCIUM 8.3 mg/dl (8.5-10.1); CREATININE 1.2 mg/dl (0.60-1.20); POTASSIUM 4.7 mmol/L (3.5-5.1)
[2017-07-11] MEDS: RIFAXIMIN TAB 550 MG TAB PO SCH ×2 (09:32→21:36)
[2017-07-11] MEDS: POTASSIUM CHLORIDE 10 MEQ TABCR PO SCH ×2 (09:32→21:37)
[2017-07-11] MEDS: METOPROLOL SUCC 25MG EXT REL TAB PO SCH (09:32)
[2017-07-11] MEDS: GABAPENTIN 100 MG CAP PO SCH ×2 (09:33→21:36)
[2017-07-11] MEDS: CALCIUM 600MG + VIT D 400 IU TAB PO SCH ×3 (09:33→21:37)
[2017-07-11] MEDS: LEVETIRACETAM 500 MG TAB PO SCH ×2 (09:33→21:36)
[2017-07-11] MEDS: HYDROCORTISONE 2.5% CR 30 GM TUBE EXT SCH (09:34)
[2017-07-11] MEDS: FLUTICASONE PROPIONATE NA SPR 16 GM BTL NAE SCH (09:34)
[2017-07-11] MEDS: PANTOprazole SOD 40 MG TAB PO SCH ×2 (09:35→21:35)
[2017-07-11] MEDS: INSULIN ASPART 100 UNITS/ML 3 ML PEN SC SCH ×4 (09:48→21:34)
--- NOTE | 2017-07-11 10:22 | Orthopedic Progress Note ---
Orthopedic Progress Note Date of Service Jul 11, 2017. Subjective Post OP Day: 1 Reports: feeling well Objective calves soft nontender, N/V intact, capillary refill less than 2 sec., dressing C /D/I Date Time Temp Pulse Resp B/P (MAP) Pulse Ox O2 Delivery O2 Flow Rate FiO2 07/11/17 07:27 36.8 113 21 125/75 (92) 92 4.0 07/11/17 03:15 93 Oxymask 4.0 07/11/17 03:00 37.2 116 18 123/83 (96) 89 Room Air 07/11/17 00:30 Oxymask 4.0 07/11/17 00:10 37.5 112 16 133/83 (100) 92 Oxymask 4.0 07/10/17 23:10 37.5 114 20 119/78 (92) 93 Oxymask 4.0 07/10/17 22:10 110 20 116/66 (83) 92 Mask 4.0 07/10/17 21:49 36.5 110 18 121/68 (85) 94 4.0 07/10/17 21:10 94 Oxymask 4.0 07/10/17 21:10 37.1 110 16 126/80 (95) 94 Oxymask 4.0 07/10/17 20:45 36.9 109 17 156/87 94 Oxymask 4 07/10/17 20:35 110 20 135/90 93 Oxymask 4 07/10/17 20:25 108 17 146/85 95 Oxymask 6 07/10/17 20:15 108 20 135/84 95 Oxymask 6 07/10/17 20:05 112 23 148/86 95 Oxymask 10 07/10/17 19:59 36.7 110 16 142/92 95 Oxymask 10 07/10/17 17:33 36.9 16 120/70 (87) 93 Nasal Cannula 4 07/10/17 16:00 Nasal Cannula 4.0 07/10/17 15:38 36.5 105 18 129/82 (98) 94 Nasal Cannula 4.0 07/10/17 12:28 103 18 127/82 (97) 93 4.0 Laboratory Results 24 Hours: Test 07/11/17 07:56 White Blood Count 11.93 K/uL Red Blood Count 4.54 M/uL Hemoglobin 11.4 g/dL Hematocrit 35.2 % Mean Corpuscular Volume 77.5 fL Mean Corpuscular Hemoglobin 25.1 pg Mean Corpuscular Hemoglobin Concent 32.4 g/dl Platelet Count 88 K/uL Mean Platelet Volume 11.2 fL Neutrophils (%) (Auto) 85.1 % Lymphocytes (%) (Auto) 7.0 % Monocytes (%) (Auto) 7.3 % Eosinophils (%) (Auto) 0.0 % Basophils (%) (Auto) 0.1 % Neutrophils # (Auto) 10.16 K/uL Lymphocytes # (Auto) 0.83 K/uL Monocytes # (Auto) 0.87 K/uL Eosinophils # (Auto) 0.00 K/uL Basophils # (Auto) 0.01 K/uL Assessment & Plan Assessment: POD 1 s/p L troch nail Plan: WBAT LLE heparin recommended by pharmacy for DVT proph secondary to Cr clearance Pain controlled D/C planning Inhouse Planning DVT Prophylaxis: TEDs, SCDs, other
--- NOTE | 2017-07-11 11:53 | Family Medicine Progress Note ---
Progress Note Date of Service Jul 11, 2017. Subjective Pt evaluation today including: conversation w/ patient, physical exam, chart review, lab review -Pt is alert and oriented to person, place, but not to time. -Pt seems a little confused. -She understands that she fell, but she did not seem to remember that she had surgery last night. -Pt complains of tenderness over the left hip. -Pt denies chest pain, SOB, fever, N/V -Pt says that she would like her account representative Kiah Birmingham to be notified -Pt denies family or friends nearby to check on her Constitutional: No fever, No chills, No sweats Respiratory: No cough, No sputum, No wheezing, No shortness of breath, No dyspnea on exertion Cardiovascular: No chest pain, No orthopnea, No edema Abdomen: + pain, No nausea, No vomiting, No diarrhea, No constipation Musculoskeletal: + joint pain (left hip), + muscle pain (left hip) Medications Current Inpatient Medications Medications (Trade) Dose Ordered Sig/Alyse Route Start Time Stop Time Status Last Admin Dose Admin Lactated Ringer's 1,000 ml @ 125 mls/hr Q8H IV 07/09/17 19:52 08/08/17 19:51 07/11/17 04:28 125 MLS/HR Ondansetron HCl (Zofran Inj) 4 mg Q6H PRN IV 07/09/17 20:00 08/08/17 19:59 Oxycodone HCl (Roxicodone Immediate Rel Tab) 5 mg Q4H PRN PO 07/09/17 20:00 07/23/17 19:59 07/11/17 09:45 5 MG Morphine Sulfate (MoRPHine SULFATE INJ) 2 mg Q2H PRN IV 07/09/17 20:00 07/23/17 19:59 Future Hold Naloxone HCl (Narcan Inj) 0.1 mg PRN PRN IV 07/09/17 20:00 08/08/17 19:59 Senna/Docusate Sodium (Senokot S Tab) 2 tab HS PO 07/09/17 21:00 08/08/17 20:59 07/09/17 22:38 2 TAB Polyethylene (Miralax Powder Packet) 17 gm DAILY PRN PO 07/09/17 20:00 08/08/17 19:59 Bisacodyl (Dulcolax Supp) 10 mg DAILY PRN [place] 07/09/17 20:00 08/08/17 19:59 Sodium Biphosphate/ Sodium Phosphate (Fleet Enema) 132 ml PRN PRN [place] 07/09/17 20:00 Acetaminophen (Tylenol Tab) 650 mg Q4H PRN PO 07/09/17 20:00 08/08/17 19:59 Al Hydrox/Mg Hydrox/Simethicone (Maalox Max Susp) 15 ml Q4H PRN PO 07/09/17 20:00 08/08/17 19:59 Magnesium Hydroxide (Milk Of Magnesia Susp) 30 ml Q6H PRN PO 07/09/17 20:00 08/08/17 19:59 Glucose (Glucose 40% Gel) 15-30 GRAMS 15 GRAMS... UD PRN PO 07/09/17 20:00 08/08/17 19:59 Glucose (Glucose Chew Tab) 4-8 Tablets 4 Tabl... UD PRN PO 07/09/17 20:00 08/08/17 19:59 Dextrose (Dextrose 50% 50ML Syringe) 25-50ML OF 50% DW IV FOR... UD PRN IV 07/09/17 20:00 08/08/17 19:59 Glucagon (Glucagon Inj) 1 mg UD PRN SQ 07/09/17 20:00 08/08/17 19:59 Bisacodyl (Dulcolax Tab) 5 mg DAILY PRN PO 07/09/17 20:15 08/08/17 20:14 Calcium/Vitamin D (Caltrate Plus Tab) 1 tab TID PO 07/09/17 21:00 08/08/17 20:59 07/11/17 09:33 1 TAB Fluticasone Propionate (Flonase Nasal [place]) 2 sprays DAILY KODY 07/10/17 09:00 08/09/17 08:59 07/11/17 09:34 2 SPRAYS Furosemide (Lasix Tab) 20 mg DAILY PO 07/10/17 09:00 08/09/17 08:59 07/11/17 09:31 20 MG Gabapentin (Neurontin Cap) 100 mg BID PO 07/09/17 21:00 08/08/17 20:59 07/11/17 09:33 100 MG Hydrocortisone (Hydrocortisone 2.5% Crm) 1 appln DAILY EXT 07/10/17 09:00 08/09/17 08:59 07/10/17 08:20 1 APPLN Metoprolol Succinate (Toprol Xl Tab) 12.5 mg DAILY PO 07/10/17 09:00 08/09/17 08:59 07/11/17 09:32 12.5 MG Potassium Chloride (Klor-Con M10) 10 meq BID PO 07/09/17 21:00 08/08/17 20:59 07/11/17 09:32 10 MEQ Rifaximin (Xifaxan Tab) 550 mg BID PO 07/09/17 21:00 08/08/17 20:59 07/11/17 09:32 550 MG Venlafaxine HCl (effeXOR EXTENDED REL CAP) 150 mg DAILY PO 07/10/17 09:00 08/09/17 08:59 07/11/17 09:31 150 MG Pantoprazole Sodium (Protonix Tab) 40 mg BID PO 07/09/17 21:00 08/08/17 20:59 07/11/17 09:35 40 MG Levetiracetam (Keppra Tab) 1,000 mg BID PO 07/09/17 21:00 08/08/17 20:59 07/11/17 09:33 1,000 MG Spironolactone (Aldactone Tab) 50 mg DAILY PO 07/10/17 09:00 08/09/17 08:59 07/11/17 09:31 50 MG Enoxaparin Sodium (Lovenox Inj) 40 mg DAILY@0600 SQ 07/11/17 06:00 08/10/17 05:59 07/11/17 06:03 40 MG Miscellaneous Information (Pharmacy Consult) 1 ea UD PRN N/A 07/10/17 19:45 08/09/17 19:44 Ondansetron HCl (Zofran Inj) 4 mg Q6H PRN IV 07/10/17 19:45 08/09/17 19:44 Hydromorphone HCl (Dilaudid Inj) 0.25 mg Q20M PRN IV 07/10/17 19:45 07/24/17 19:44 Hydromorphone HCl (Dilaudid Inj) 0.5 mg Q20M PRN IV 07/10/17 19:45 07/24/17 19:44 Menthol (Nice Gregory) 1 gregory Q2H PRN PO 07/10/17 19:45 08/09/17 19:44 Polyethylene (Miralax Powder Packet) 17 gm Q6 PO 07/12/17 06:00 08/11/17 05:59 Magnesium Hydroxide (Milk Of Magnesia Susp) 30 ml DAILY PRN PO 07/10/17 19:45 08/09/17 19:44 Insulin Aspart (novoLOG ASPART) SLIDING SCALE If C... ACHS SC 07/11/17 08:00 08/10/17 07:59 07/11/17 09:48 4 UNITS Objective Vital Signs Date Time Temp Pulse Resp B/P (MAP) Pulse Ox O2 Delivery O2 Flow Rate FiO2 07/11/17 11:20 36.5 105 20 117/73 (88) 89 Room Air 07/11/17 08:20 Oxymask 4.0 93 07/11/17 07:27 36.8 113 21 125/75 (92) 92 4.0 07/11/17 03:15 93 Oxymask 4.0 07/11/17 03:00 37.2 116 18 123/83 (96) 89 Room Air 07/11/17 00:30 Oxymask 4.0 07/11/17 00:10 37.5 112 16 133/83 (100) 92 Oxymask 4.0 07/10/17 23:10 37.5 114 20 119/78 (92) 93 Oxymask 4.0 07/10/17 22:10 110 20 116/66 (83) 92 Mask 4.0 07/10/17 21:49 36.5 110 18 121/68 (85) 94 4.0 07/10/17 21:10 94 Oxymask 4.0 07/10/17 21:10 37.1 110 16 126/80 (95) 94 Oxymask 4.0 07/10/17 20:45 36.9 109 17 156/87 94 Oxymask 4 07/10/17 20:35 110 20 135/90 93 Oxymask 4 07/10/17 20:25 108 17 146/85 95 Oxymask 6 07/10/17 20:15 108 20 135/84 95 Oxymask 6 07/10/17 20:05 112 23 148/86 95 Oxymask 10 07/10/17 19:59 36.7 110 16 142/92 95 Oxymask 10 07/10/17 17:33 36.9 16 120/70 (87) 93 Nasal Cannula 4 07/10/17 16:00 Nasal Cannula 4.0 07/10/17 15:38 36.5 105 18 129/82 (98) 94 Nasal Cannula 4.0 07/10/17 12:28 103 18 127/82 (97) 93 4.0 Physical Exam General Appearance: WD/WN, no apparent distress Neck: supple, no adenopathy Respiratory/Chest: chest non-tender, lungs clear, normal breath sounds, no respiratory distress, no accessory muscle use Cardiovascular: regular rate, rhythm, no edema, no gallop, no JVD, no murmur Abdomen: normal bowel sounds, non tender, soft, no organomegaly, no pulsatile mass 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iatric: alert, normal mood/affect Skin: normal color, warm/dry, no rash Laboratory Results 07/11/17 07:56 Red Blood Count 4.54, Mean Corpuscular Volume 77.5, Mean Corpuscular Hemoglobin 25.1, Mean Corpuscular Hemoglobin Concent 32.4, Mean Platelet Volume 11.2, Neutrophils (%) (Auto) 85.1, Lymphocytes (%) (Auto) 7.0, Monocytes (%) (Auto) 7.3, Eosinophils (%) (Auto) 0.0, Basophils (%) (Auto) 0.1, Neutrophils # (Auto) 10.16, Lymphocytes # (Auto) 0.83, Monocytes # (Auto) 0.87, Eosinophils # (Auto) 0.00, Basophils # (Auto) 0.01 07/11/17 07:56 Test 07/11/17 07:56 07/11/17 08:11 07/11/17 09:42 White Blood Count 11.93 K/uL (4.8-10.8) Red Blood Count 4.54 M/uL (4.2-5.4) Hemoglobin 11.4 g/dL (12.0-16.0) Hematocrit 35.2 % (37-47) Mean Corpuscular Volume 77.5 fL (80-100) Mean Corpuscular Hemoglobin 25.1 pg (25-34) Mean Corpuscular Hemoglobin Concent 32.4 g/dl (32-36) Platelet Count 88 K/uL (130-400) Mean Platelet Volume 11.2 fL (7.4-10.4) Neutrophils (%) (Auto) 85.1 % Lymphocytes (%) (Auto) 7.0 % Monocytes (%) (Auto) 7.3 % Eosinophils (%) (Auto) 0.0 % Basophils (%) (Auto) 0.1 % Neutrophils # (Auto) 10.16 K/uL (1.4-6.5) Lymphocytes # (Auto) 0.83 K/uL (1.2-3.4) Monocytes # (Auto) 0.87 K/uL (0.11-0.59) Eosinophils # (Auto) 0.00 K/uL (0-0.5) Basophils # (Auto) 0.01 K/uL (0-0.2) RDW Standard Deviation 46.9 fL (36.4-46.3) RDW Coefficient of Variation 16.7 % (11.5-14.5) Immature Granulocyte % (Auto) 0.5 % Immature Granulocyte # (Auto) 0.06 K/uL (0.00-0.02) Hypersegmented Polys 1+ Platelet Estimate DECREASED Anisocytosis PRESENT Anion Gap 11.0 mmol/L (3-11) Est Creatinine Clear Calc Drug Dose 47.8 ml/min Estimated GFR () 55.3 Estimated GFR (Non- 47.7 BUN/Creatinine Ratio 25.8 (10-20) Calcium Level 8.3 mg/dl (8.5-10.1) 25-Hydroxy Vitamin D Total 21.7 ng/ml (30-100) Bedside Glucose 288 mg/dl (70-90) Assessment and Plan 62 year old with Cirrhosis, Seizure Disorder and Hepatitis C, with fall and displaced left intertrochanteric hip fracture. Left Intertrochanteric Hip Fracture - ORIF of left hip performed evening of 25Aug - Dc'ed IVF and joel this am. - Pain controlled with Tylenol, Dilaudid IV PRN Osteoporosis -low Vit D: 21.7 -Outpatient follow up with Dr. Singh in [place] - ? sec to hypotension, orthostasis, seizure. Follow Right Hilar Opacity - Unclear if infective vs nodule - Procalcitonin <.05 - CT non-contrast for further characterization is overall unremarkable - Patient is not having new O2 requirements Head Injury due to Fall - Non-contrast head CT negative for acute pathology COPD - home inhalers Diabetes mellitus - Hold home medications - SC insulin with AC/HS check - Elevated sugars today, pharmacy consulted Seizure Disorder - Keppra level pending - Continue Keppra Cirrhosis/Portal HTN 2/2 Hep C and Previous EtOH - Continue Lasix, Spironolactone - Continue Rifaximin Thrombocytopenia - 81k - Appears chronic based on previous Plt Counts; like 2/2 Cirrhosis - No evidence of active bleeding - This does not preclude use of prophylactic anticoagulation Chronic pain from spine DDD - On prn oxycodone at home HTN - Continue Metoprolol Depression - Continue Effexor Hepatitis C - Not on treatment DVT Prophylaxis - SCD Knee, LIZET Hose - Heparin 5000 TID Code Status - Level I Full Code Disposition - Med/Surg - OT and PT evaluations Reviewed: Pt Seen/Exam by Me History sitting propped up in bed. c/o pain in hip. medications helping Constitutional: denies: fever Respiratory: negative: short of breath Cardiovascular: denies chest pain General Appearance: no apparent distress Respiratory: lungs clear, no respiratory distress Cardiovascular: regular rate, rhythm 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iatric: alert, oriented x 3 Skin Characteristics: warm/dry Assessment/Plan Resident Physician Supervision Note: I was present with Dr. Levin in bedside. I verified the green history and physical, reviewed labs and image studies, discussed the case with the resident and agree with the findings and care plan.
[2017-07-11] MEDS ORDERED: NURSING VERBAL MED ORDER ONE (12:30)
[2017-07-11] MEDS ORDERED: PHARMACY GLYCEMIC MGMT CONSULT PRN (13:41)
[2017-07-11] MEDS ORDERED: INSULIN GLARGINE SOLOSTAR 100 UNITS/ML 3 ML PEN SC ONE (14:00)
[2017-07-11] MEDS: ONDANSETRON INJ 2 MG/ML 2 ML VIAL IV PRN (14:03)
--- NOTE | 2017-07-11 14:15 | Pharmacy Progress Note ---
Glycemic Control Intl Consult Date of Service Jul 11, 2017. Scope Glycemic Pharmacist consulted by Dr Levin on 07/11/17 for glycemic control and to write orders per [facility] inpatient glycemic control protocol Objective Weight (Kilograms): 74.900 Accuchecks BSG (last 24hrs): Test 07/10/17 20:08 07/11/17 07:56 07/11/17 09:42 07/11/17 12:12 Bedside Glucose 154 mg/dl (70-90) 288 mg/dl (70-90) 323 mg/dl (70-90) Random Glucose 278 mg/dl (70-99) Laboratory Data (last 24hrs) Test 07/11/17 07:56 Anion Gap 11.0 mmol/L BUN/Creatinine Ratio 25.8 Blood Urea Nitrogen 31 mg/dl Creatinine 1.20 mg/dl Potassium Level 4.7 mmol/L Sodium Level 136 mmol/L White Blood Count 11.93 K/uL Red Blood Count 4.54 M/uL Hemoglobin 11.4 g/dL Hematocrit 35.2 % Mean Corpuscular Volume 77.5 fL Mean Corpuscular Hemoglobin 25.1 pg Mean Corpuscular Hemoglobin Concent 32.4 g/dl Platelet Count 88 K/uL Mean Platelet Volume 11.2 fL Neutrophils (%) (Auto) 85.1 % Lymphocytes (%) (Auto) 7.0 % Monocytes (%) (Auto) 7.3 % Eosinophils (%) (Auto) 0.0 % Basophils (%) (Auto) 0.1 % Neutrophils # (Auto) 10.16 K/uL Lymphocytes # (Auto) 0.83 K/uL Monocytes # (Auto) 0.87 K/uL Eosinophils # (Auto) 0.00 K/uL Basophils # (Auto) 0.01 K/uL Recent Pertinent Medications Outpatient Anti-diabetic Regimen: * Toujeo 80 units HS * Novolog 12 units AC * A1c from 2014 The patient is currently receiving: * Correctional Insulin: Novolog Correction per scale ACHS Goal Range: Low 140 mg/dL - High 180 mg/dL Correction Factor: 30 mg/dL/unit * Prandial insulin: Per carb ratio of 1 unit per 10 grams CHO consumed Risk Factors for Insulin Resistance: * Steroids: Dexamethasone 8 mg IV X 1 in OR last evening * Recent Surgery: POD #1 * Diet Assessment & Plan ASSESSMENT: * 62 diabetic F admitted s/p fall for left hip surgery * Patient on basal/bolus regimen at home but Toujeo held since admission * BSGs >250 mg/dL at breakfast and lunch today so pharmacy consulted for severe hyperglycemia * She did receive 8 mg of IV dexamethasone in the OR; that combined with lack of basal insulin explains her hyperglycemia * Plan will be to give Lantus X 1 now, then reassess BSG tonight for Lantus administration * Initiate wt based/stress of 3 Novolog but may need to tighten if home regimen accurate * Spoke with both nurse and patient; pt not very clear if she is taking insulin consistently or not * No recent A1c to help guide therapy; I have a feeling she is noncompliant to a degree and I am concerned for hypoglycemia as she is a fall risk (possibly low 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 However, more stringent targets may be selected in individual cases. Given severe hyperglycemia, tighten for now but reassess in the AM. PLAN FOR INPATIENT GLYCEMIC CONTROL: * Basal insulin with LANTUS 40 units SQ X 1 now * Give extra Lantus tonight based on BSG * If BSG <140: 10 units * If BSG 140-180: 20 units * If BSG >180: 30 units * Correctional Insulin with NOVOLOG per scale ACHS or Q6hrs while NPO + 00,04 for sustained hyperglycemia * Goal Range: Low 110 mg/dL - High 140 mg/dL * Correction Factor: 20 mg/dL/unit * Nutritional / Prandial insulin per carb ratio of 1 unit per 7 grams CHO consumed * Please note that the plan above was derived based on current level of insulin resistance and hospital stress. These recommendations are appropriate for inpatient admission only. Plan of care upon discharge will need to be reassessed to avoid potential outpatient hypo/hyperglycemia. Thank you.
[2017-07-11] MEDS ORDERED: INSULIN GLARGINE SOLOSTAR 100 UNITS/ML 3 ML PEN SC SCH (21:00)
[2017-07-11] MEDS: DOCUSATE SODIUM/SENNA 50/8.6MG TAB PO SCH (21:37)
[2017-07-12] MEDS: ONDANSETRON INJ 2 MG/ML 2 ML VIAL IV PRN (00:49)
[2017-07-12] MEDS: INSULIN ASPART 100 UNITS/ML 3 ML PEN SC SCH ×6 (00:49→21:05)
[2017-07-12] MEDS: OXYCODONE HCL IR 5 MG TAB (IMMEDIATE RELEASE) PO PRN (00:50)
[2017-07-12] MEDS: ENOXAPARIN 40 MG/0.4 ML SYR SQ SCH (06:20)
[2017-07-12] MEDS: POLYETHYLENE (MIRALAX) 17 GM PACK PO SCH ×3 (06:20→17:54)
[2017-07-12 07:19] VITALS: BP 123/76; PULSE 100; TEMP 36.8; O2SAT 93
[2017-07-12 07:24] LABS: MEAN CORPUSCULAR HGB CONC 32.2 g/dl (32-36)
[2017-07-12 07:53] LABS: HEMATOCRIT 33.9 % (37-47); MEAN CELL VOLUME 75.5 fL (80-100); MEAN CORPUSCULAR HEMOGLOBIN 24.3 pg (25-34); RED BLOOD COUNT 4.49 M/uL (4.2-5.4); WHITE BLOOD COUNT 17.11 K/uL (4.8-10.8)
[2017-07-12 07:58] LABS: MEAN PLATELET VOLUME 10.4 fL (7.4-10.4); PLATELET COUNT 105 K/uL (130-400); PLT ESTIMATE DECREASED
[2017-07-12 08:03] LABS: CALCIUM 8.7 mg/dl (8.5-10.1); CREATININE 1.3 mg/dl (0.60-1.20); POTASSIUM 5.6 mmol/L (3.5-5.1)
--- NOTE | 2017-07-12 08:58 | Orthopedic Progress Note ---
Orthopedic Progress Note Date of Service Jul 12, 2017. Subjective Post OP Day: 2 Reports: pain controlled w PO medications, Denies: chest pain, SOB, nausea / vomiting, light headedness, calf pain Additional Notes: she does have complaints of pain this morning however she is resting very comfortably in bed this am Objective calves soft nontender Date Time Temp Pulse Resp B/P (MAP) Pulse Ox O2 Delivery O2 Flow Rate FiO2 07/12/17 07:19 36.8 100 19 123/76 (92) 93 4.0 07/12/17 00:40 Oxymask 2.0 07/11/17 23:17 36.8 101 18 118/77 (91) 91 Oxymask 3.0 07/11/17 16:30 Oxymask 2.0 07/11/17 15:06 36.6 98 14 124/73 (90) 94 07/11/17 12:40 Oxymask 2.0 92 07/11/17 11:20 36.5 105 20 117/73 (88) 89 Room Air Laboratory Results 24 Hours: Test 07/12/17 06:48 Hematocrit 33.9 % Hemoglobin 10.9 g/dL Assessment & Plan Assessment: POD 2 s/p L troch nail Plan: WBAT LLE heparin recommended by pharmacy for DVT proph secondary to Cr clearance Pain controlled D/C planning per medicine. HSNV would be appropriate when ready per medicine. Patient seen and examined, agree with above Inhouse Planning Pain Management: Dilaudid, PO Tylenol DVT Prophylaxis: TEDs, SCDs, Lovenox Discharge Planning Discharge Planning: uncertain Therapy: Physical Therapy
[2017-07-12] MEDS: POTASSIUM CHLORIDE 10 MEQ TABCR PO SCH (09:00)
[2017-07-12] MEDS: HYDROCORTISONE 2.5% CR 30 GM TUBE EXT SCH (09:00)
[2017-07-12] MEDS: VENLAFAXINE HCL XR 150 MG CAPXR PO SCH (09:00)
[2017-07-12] MEDS: SPIRONOLACTONE 25 MG TAB PO SCH (09:00)
[2017-07-12] MEDS: RIFAXIMIN TAB 550 MG TAB PO SCH ×2 (09:00→21:00)
[2017-07-12] MEDS: FUROSEMIDE 20 MG TAB PO SCH (09:00)
[2017-07-12] MEDS: CALCIUM 600MG + VIT D 400 IU TAB PO SCH ×3 (09:00→21:00)
[2017-07-12] MEDS: METOPROLOL SUCC 25MG EXT REL TAB PO SCH (09:00)
[2017-07-12] MEDS: LEVETIRACETAM 500 MG TAB PO SCH ×2 (09:00→21:00)
[2017-07-12] MEDS: PANTOprazole SOD 40 MG TAB PO SCH ×2 (09:00→21:00)
[2017-07-12] MEDS: FLUTICASONE PROPIONATE NA SPR 16 GM BTL NAE SCH (09:00)
[2017-07-12] MEDS: GABAPENTIN 100 MG CAP PO SCH ×2 (09:00→21:00)
--- NOTE | 2017-07-12 09:00 | Discharge Instructions ---
Discharge Instructions Date of Service Jul 12, 2017. Admission Reason for Admission: Hip Fracture, Left Discharge Discharge Diagnosis / Problem: Left hip troch nail Discharge Goals Goal(s): Decrease discomfort, Improve function, Increase independence, Therapeutic intervention Activity Recommendations Activity Limitations: per Instructions/Follow-up section . Instructions / Follow-Up Instructions / Follow-Up U DISCHARGE INSTRUCTIONS: HIP FRACTURE SELF CARE INSTRUCTIONS: A. You are to ambulate with a walker or crutches for approximately 6 weeks. B. You are WEIGHT BEARING TOLERATEED on your operative lower extremity for at least 6 weeks. C. Wear low heeled shoes with non-slip soles D. Be sure that your floors are free of things that could trip you throw rugs, electrical cords, and small objects. Avoid wet and waxed floors, especially with crutches/walker/cane. E. Try to walk several times a day with rest periods between. F. You may shower 48 hours after surgery and get the incision area wet, but DO NOT soak or submerge incision area in water. (No baths, swimming pools, hot tubs ) G. You may have a large, band-aid like dressing over your incision (Aquacel). This will remain on your incision for 7 days, and then can be removed. You CAN shower with this on. If incision is leaking through the dressing, please call the office . H. Do NOT apply soap or any ointment/lotions directly over incision. I. You may use ice as needed to operative site. SPECIAL CARE INSTRUCTIONS: VERY IMPORTANT TO READ AND REVIEW A. You may be at risk for phlebitis or blood clots. a. Wear surgical stockings (LIZET hose) for 2 weeks after surgery to improve circulation and reduce swelling. b. Take ASPIRIN 325 mg twice daily/ LOVENOX 40mg SQ daily / LOVENOX 30mg SQ BID for 4 weeks or as directed. This is your blood thinner. c. If you are on Coumadin- you will have daily/weekly blood work to monitor your levels. This will be done by either your family physician/ ssas developer (if you are on Coumadin chronically) versus your orthopedic surgeon. Expect a phone call the day of or the day after your blood work is drawn to adjust your dose accordingly. B. There are a few signs you need to watch for after you are home. Call [facility] at [phone] if you experience any of the following: a. If you have a temperature of 101 degrees or higher. b. Sudden increase in pain in your hip not relieved by rest or pain medication. c. Any fluid or drainage from the incision; redness of the incision. d. Shortness of breath or chest pain. B. Please call [facility] at [phone] if you have any questions or concerns about your operation or recovery. C. Call your physician if: a. Temperature is greater than 101 degrees (F). b. Pain is not relieved by prescribed pain medications. c. Increase drainage or redness from incision. d. Unanswered questions or concerns. D. Pain Medication: a. You will be prescribed pain medication upon discharge that should last till your first post-operative appointment. b. If you experience nausea and/or skin rash, discontinue this medication and contact our office for an alternative medication. c. Caution- narcotic pain medication can cause constipation. FOLLOW UP VISIT: Please call [facility] at [phone] to schedule a follow up appointment 10-14 days from the date of your surgery date. Current Hospital Diet Patient's current hospital diet: Diabetes Type 2 Diet Discharge Diet Recommended Diet: Diabetes Type 2 Diet Procedures Procedures Performed: ORIF left intertrochanteric hip fracture with trochanteric Nail Pending Studies Studies pending at discharge: no Laboratory Results Hemoglobin A1c Test 07/12/17 06:48 Range/Units Medical Emergencies . Who to Call and When: Medical Emergencies: If at any time you feel your situation is an emergency, please call 911 immediately. . Non-Emergent Contact Non-Emergency issues call your: Primary Care Provider . "Provider Documentation" section prepared by Lisa Santiago. . VTE Core Measure Inpt VTE Proph given/why not?: Enoxaparin (Lovenox)UTE, T.E.Bulmaro. Stockings, SCD's
[2017-07-12] MEDS ORDERED: SODIUM CHLORIDE 0.9% 500ML 500 ML IV SCH (09:30)
--- NOTE | 2017-07-12 10:33 | Pharmacy Progress Note ---
Glycemic Control Progress Note Date of Service Jul 12, 2017. Scope Glycemic Pharmacist consulted for glycemic control to write orders per [facility] inpatient glycemic control protocol. Objective Accuchecks BSG (last 24hrs): Test 07/11/17 12:12 07/11/17 17:05 07/11/17 19:57 07/12/17 00:20 Bedside Glucose 323 mg/dl (70-90) 282 mg/dl (70-90) 276 mg/dl (70-90) 196 mg/dl (70-90) Test 07/12/17 04:29 07/12/17 06:48 07/12/17 08:25 Bedside Glucose 142 mg/dl (70-90) 135 mg/dl (70-90) Random Glucose 149 mg/dl (70-99) HbA1c: Test 07/12/17 06:48 Recent Pertinent Medications Current Regimen: * Lantus 40 units X 1 @ 1400, plus Lantus 30 units X 1 at bedtime * Novolog ACHS * Goal range 110-140 mg/dL * CF: 20 * CR: 7 Outpatient Anti-Diabetic Meds Both basal and bolus insulin Assessment & Plan ASSESSMENT: * 62 diabetic F admitted s/p fall for left hip surgery * Patient on basal/bolus regimen at home but Toujeo held since admission * BSGs >250 mg/dL 07/11/17 at time of consult * Lantus 40 units X 1 given with aggressive Novolog coverage * Additional dose of Lantus 30 units given last night for a total of 70 units basal yesterday * BSGs have consistently trended in the right direction with Fasting BSG this AM of 135 mg/dL * Patient did not eat breakfast and received 0 units * I plan to re-dose basal insulin tonight with dinner to try to transition patient back to bedtime dosing * Of note, spoke with both nurse and patient; pt not very clear if she is taking insulin consistently or not * No recent A1c to help guide therapy; I have a feeling she is noncompliant to a degree and I am concerned for hypoglycemia as she is a fall risk (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 However, more stringent targets may be selected in individual cases. Continue tightened goal range of 110-140 mg/dL and reassess in the AM. PLAN FOR INPATIENT GLYCEMIC CONTROL: * Basal insulin with LANTUS 40 units SQ with dinner, then bedtime tomorrow * Correctional Insulin with NOVOLOG per scale ACHS + 00,04 incase my basal adjustment is not accurate * Goal Range: Low 110 mg/dL - High 140 mg/dL * Correction Factor: 20 mg/dL/unit * Nutritional / Prandial insulin per carb ratio of 1 unit per 7 grams CHO consumed * Please note that the plan above was derived based on current level of insulin resistance and hospital stress. These recommendations are appropriate for inpatient admission only. Plan of care upon discharge will need to be reassessed to avoid potential outpatient hypo/hyperglycemia. Thank you.
[2017-07-12 12:28] VITALS: BP 124/79; PULSE 102; TEMP 37.2; O2SAT 91
--- NOTE | 2017-07-12 13:05 | Family Medicine Progress Note ---
Progress Note Date of Service Jul 12, 2017. Subjective Pt evaluation today including: conversation w/ patient, physical exam, chart review, lab review -Today the patient expresses a moderate amount of pain. -She is alert and oriented x3, but very tired. -Nursing states that the patient was altered this morning and afternoon--unsure of where she was -Pt denies chest pain, sob, fever, nausea, vomiting Constitutional: No fever, No chills, No sweats Respiratory: No cough, No sputum, No wheezing, No shortness of breath Cardiovascular: No chest pain, No orthopnea, No edema Abdomen: No pain, No nausea, No vomiting, No diarrhea Medications Current Inpatient Medications Medications (Trade) Dose Ordered Sig/Alyse Route Start Time Stop Time Status Last Admin Dose Admin Ondansetron HCl (Zofran Inj) 4 mg Q6H PRN IV 07/09/17 20:00 08/08/17 19:59 07/12/17 00:49 4 MG Oxycodone HCl (Roxicodone Immediate Rel Tab) 5 mg Q4H PRN PO 07/09/17 20:00 07/23/17 19:59 07/12/17 00:50 5 MG Morphine Sulfate (MoRPHine SULFATE INJ) 2 mg Q2H PRN IV 07/09/17 20:00 07/23/17 19:59 Future Hold Naloxone HCl (Narcan Inj) 0.1 mg PRN PRN IV 07/09/17 20:00 08/08/17 19:59 Senna/Docusate Sodium (Senokot S Tab) 2 tab HS PO 07/09/17 21:00 08/08/17 20:59 07/11/17 21:37 2 TAB Polyethylene (Miralax Powder Packet) 17 gm DAILY PRN PO 07/09/17 20:00 08/08/17 19:59 Bisacodyl (Dulcolax Supp) 10 mg DAILY PRN AR 07/09/17 20:00 08/08/17 19:59 Sodium Biphosphate/ Sodium Phosphate (Fleet Enema) 132 ml PRN PRN AR 07/09/17 20:00 Acetaminophen (Tylenol Tab) 650 mg Q4H PRN PO 07/09/17 20:00 08/08/17 19:59 Al Hydrox/Mg Hydrox/Simethicone (Maalox Max Susp) 15 ml Q4H PRN PO 07/09/17 20:00 08/08/17 19:59 Magnesium Hydroxide (Milk Of Magnesia Susp) 30 ml Q6H PRN PO 07/09/17 20:00 08/08/17 19:59 Glucose (Glucose 40% Gel) 15-30 GRAMS 15 GRAMS... UD PRN PO 07/09/17 20:00 08/08/17 19:59 Glucose (Glucose Chew Tab) 4-8 Tablets 4 Tabl... UD PRN PO 07/09/17 20:00 08/08/17 19:59 Dextrose (Dextrose 50% 50ML Syringe) 25-50ML OF 50% DW IV FOR... UD PRN IV 07/09/17 20:00 08/08/17 19:59 Glucagon (Glucagon Inj) 1 mg UD PRN SQ 07/09/17 20:00 08/08/17 19:59 Bisacodyl (Dulcolax Tab) 5 mg DAILY PRN PO 07/09/17 20:15 08/08/17 20:14 Calcium/Vitamin D (Caltrate Plus Tab) 1 tab TID PO 07/09/17 21:00 08/08/17 20:59 07/11/17 21:37 1 TAB Fluticasone Propionate (Flonase Nasal [place]) 2 sprays DAILY KODY 07/10/17 09:00 08/09/17 08:59 07/11/17 09:34 2 SPRAYS Furosemide (Lasix Tab) 20 mg DAILY PO 07/10/17 09:00 08/09/17 08:59 07/11/17 09:31 20 MG Gabapentin (Neurontin Cap) 100 mg BID PO 07/09/17 21:00 08/08/17 20:59 07/11/17 21:36 100 MG Hydrocortisone (Hydrocortisone 2.5% Crm) 1 appln DAILY EXT 07/10/17 09:00 08/09/17 08:59 07/10/17 08:20 1 APPLN Metoprolol Succinate (Toprol Xl Tab) 12.5 mg DAILY PO 07/10/17 09:00 08/09/17 08:59 07/11/17 09:32 12.5 MG Potassium Chloride (Klor-Con M10) 10 meq BID PO 07/09/17 21:00 08/08/17 20:59 Future Hold 07/11/17 21:37 10 MEQ Rifaximin (Xifaxan Tab) 550 mg BID PO 07/09/17 21:00 08/08/17 20:59 07/11/17 21:36 550 MG Venlafaxine HCl (effeXOR EXTENDED REL CAP) 150 mg DAILY PO 07/10/17 09:00 08/09/17 08:59 07/11/17 09:31 150 MG Pantoprazole Sodium (Protonix Tab) 40 mg BID PO 07/09/17 21:00 08/08/17 20:59 07/11/17 21:35 40 MG Levetiracetam (Keppra Tab) 1,000 mg BID PO 07/09/17 21:00 08/08/17 20:59 07/11/17 21:36 1,000 MG Spironolactone (Aldactone Tab) 50 mg DAILY PO 07/10/17 09:00 08/09/17 08:59 07/11/17 09:31 50 MG Enoxaparin Sodium (Lovenox Inj) 40 mg DAILY@0600 SQ 07/11/17 06:00 08/10/17 05:59 07/12/17 06:20 40 MG Miscellaneous Information (Pharmacy Consult) 1 ea UD PRN N/A 07/10/17 19:45 08/09/17 19:44 Hydromorphone HCl (Dilaudid Inj) 0.25 mg Q20M PRN IV 07/10/17 19:45 07/24/17 19:44 Hydromorphone HCl (Dilaudid Inj) 0.5 mg Q20M PRN IV 07/10/17 19:45 07/24/17 19:44 Menthol (Nice Kirstin) 1 kirstin Q2H PRN PO 07/10/17 19:45 08/09/17 19:44 Polyethylene (Miralax Powder Packet) 17 gm Q6 PO 07/12/17 06:00 08/11/17 05:59 07/12/17 06:20 17 GM Insulin Aspart (novoLOG ASPART) SLIDING SCALE If C... ACHS SC 07/11/17 08:00 08/10/17 07:59 07/11/17 21:34 7 UNITS Miscellaneous Information (Consult Glycemic Management Pharmacy) 1 ea UD PRN N/A 07/11/17 13:41 08/10/17 13:40 Insulin Aspart (novoLOG ASPART) SLIDING SCALE If C... 0000,0400 SC 07/12/17 00:00 08/11/17 00:00 07/12/17 04:37 1 UNITS Sodium Chloride 500 ml @ 75 mls/hr Q6H40M IV 07/12/17 09:30 07/12/17 16:09 07/12/17 09:35 75 MLS/HR Objective Vital Signs Date Time Temp Pulse Resp B/P (MAP) Pulse Ox O2 Delivery O2 Flow Rate FiO2 07/12/17 12:28 37.2 102 16 124/79 (94) 91 Oxymask 2.0 07/12/17 08:30 Oxymask 2.0 07/12/17 07:19 36.8 100 19 123/76 (92) 93 4.0 07/12/17 00:40 Oxymask 2.0 07/11/17 23:17 36.8 101 18 118/77 (91) 91 Oxymask 3.0 07/11/17 16:30 Oxymask 2.0 07/11/17 15:06 36.6 98 14 124/73 (90) 94 Physical Exam General Appearance: WD/WN, no apparent distress Respiratory/Chest: chest non-tender, lungs clear, normal breath sounds, no respiratory distress, no accessory muscle use Cardiovascular: regular rate, rhythm, no edema, no gallop, no JVD, no murmur Abdomen: normal bowel sounds, non tender, soft, no organomegaly 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iatric: alert, normal mood/affect, oriented x 3 Skin: normal color, warm/dry, no rash Laboratory Results 07/12/17 06:48 Test 07/12/17 06:48 07/12/17 12:08 07/12/17 12:43 Red Blood Count 4.49 M/uL (4.2-5.4) Mean Corpuscular Volume 75.5 fL (80-100) Mean Corpuscular Hemoglobin 24.3 pg (25-34) Mean Corpuscular Hemoglobin Concent 32.2 g/dl (32-36) RDW Standard Deviation 45.2 fL (36.4-46.3) RDW Coefficient of Variation 16.5 % (11.5-14.5) Mean Platelet Volume 10.4 fL (7.4-10.4) Platelet Estimate DECREASED Est Creatinine Clear Calc Drug Dose 44.1 ml/min Bedside Glucose 168 mg/dl (70-90) Assessment and Plan 62 year old with Cirrhosis, Seizure Disorder and Hepatitis C, with fall and displaced left intertrochanteric hip fracture. Left Intertrochanteric Hip Fracture - ORIF of left hip performed evening of 25Aug - Pain controlled with Tylenol, Dilaudid IV PRN - WBC 17.11, afebrile, will monitor Osteoporosis -low Vit D: 21.7 -Outpatient follow up with Dr. Singh in [place] Hyperkalemia -K was 5.6 today -Holding K supplement, spironolactone -IVF 500 ml BERNIE -Cr tending up .97--->1.3 over 3 days -Hyponatremia, hyperkalemia -IVF this am and pm: 500ml IVF, 75 mls/hr -F/u BMP in the am. Fall - ? sec to hypotension, orthostasis, seizure. 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 received roxanol at midnight Constitutional: denies: fever Respiratory: negative: short of breath Cardiovascular: denies chest pain General Appearance: no apparent distress Respiratory: lungs clear, no respiratory distress Cardiovascular: regular rate, rhythm 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iatric: other (somnolent. arousable but falls asleep) Skin Characteristics: warm/dry Assessment/Plan Resident Physician Supervision Note: I was present with Dr. Levin in bedside. I verified the green history and physical, reviewed labs and image studies, discussed the case with the resident and agree with the findings and care plan.
[2017-07-12 13:53] LABS: BUN/CREATININE RATIO 40.2 (10-20); CALCIUM 8.5 mg/dl (8.5-10.1); CREATININE 1.3 mg/dl (0.60-1.20); POTASSIUM 5.7 mmol/L (3.5-5.1)
[2017-07-12 13:56] LABS: HEMATOCRIT 32.3 % (37-47); MEAN CELL VOLUME 74.1 fL (80-100); MEAN CORPUSCULAR HEMOGLOBIN 25.9 pg (25-34); RED BLOOD COUNT 4.36 M/uL (4.2-5.4); WHITE BLOOD COUNT 17.43 K/uL (4.8-10.8)
[2017-07-12 14:02] LABS: MEAN PLATELET VOLUME 10.8 fL (7.4-10.4); PLATELET COUNT 107 K/uL (130-400)
[2017-07-12 14:03] LABS: BASO % 0.1 %; BASO ABS # 0.01 K/uL (0-0.2); COMPLETE YES; IG% 0.6 %; LYMPH % 8.3 %; LYMPH ABS # 1.44 K/uL (1.2-3.4); MONO % 13.7 %; NEUT % 77.3 %; PLT ESTIMATE DECREASED
[2017-07-12 15:20] VITALS: BP 129/79; PULSE 94; TEMP 36.7; O2SAT 94
[2017-07-12 15:25] VITALS: O2SAT 93
[2017-07-12 15:35] VITALS: BP 129/79; PULSE 94; O2SAT 94
[2017-07-12] MEDS: INSULIN GLARGINE SOLOSTAR 100 UNITS/ML 3 ML PEN SC SCH (17:54)
[2017-07-12] MEDS ORDERED: SODIUM CHLORIDE 0.9% 500ML 500 ML IV ONE (18:30)
[2017-07-12] MEDS: DOCUSATE SODIUM/SENNA 50/8.6MG TAB PO SCH (21:00)
[2017-07-12 23:01] VITALS: BP 124/64; PULSE 98; TEMP 36.3; O2SAT 94
[2017-07-13] VITALS (7 sets, daily range): BP systolic 110–129; BP diastolic 62–75; PULSE 78–87; TEMP 36.4–36.9; O2SAT 97–100
[2017-07-13] MEDS: INSULIN ASPART 100 UNITS/ML 3 ML PEN SC SCH ×6 (00:13→21:24)
[2017-07-13] MEDS: POLYETHYLENE (MIRALAX) 17 GM PACK PO SCH ×4 (05:46→18:29)
[2017-07-13] MEDS: ENOXAPARIN 40 MG/0.4 ML SYR SQ SCH (05:47)
[2017-07-13 06:37] LABS: URINE APPEARANCE CLEAR (CLEAR); URINE BILIRUBIN NEG (NEG); URINE COLOR DK YELLOW; URINE NITRITE NEG (NEG); URINE PH 5.5 (4.5-7.5); URINE SPECIFIC GRAVITY 1.025 (1.000-1.030); UROBILINOGEN NEG (NEG)
[2017-07-13 06:41] LABS: HEMATOCRIT 28.7 % (37-47); MEAN CELL VOLUME 76.3 fL (80-100); MEAN CORPUSCULAR HEMOGLOBIN 25.5 pg (25-34); MEAN CORPUSCULAR HGB CONC 33.4 g/dl (32-36); RED BLOOD COUNT 3.76 M/uL (4.2-5.4); WHITE BLOOD COUNT 10.27 K/uL (4.8-10.8)
[2017-07-13 06:42] LABS: MANUAL MICROSCOPIC REQUIRED? NO; REVIEW REQ? NO
[2017-07-13 07:09] LABS: MEAN PLATELET VOLUME 10.1 fL (7.4-10.4); PLATELET COUNT 88 K/uL (130-400)
--- NOTE | 2017-07-13 07:12 | Orthopedic Progress Note ---
Orthopedic Progress Note Date of Service Jul 13, 2017. Subjective Post OP Day: 3 Reports: feeling well, pain controlled w PO medications, Denies: complaints, chest pain, SOB, nausea / vomiting, light headedness, calf pain Objective calves soft nontender, N/V intact, capillary refill less than 2 sec., dressing C /D/I, A&O x3, toes mobile Date Time Temp Pulse Resp B/P (MAP) Pulse Ox O2 Delivery O2 Flow Rate FiO2 07/13/17 00:15 Oxymask 2.0 07/12/17 23:01 36.3 98 18 124/64 (84) 94 Oxymask 2.0 07/12/17 15:35 94 94 07/12/17 15:25 93 Oxymask 2.0 07/12/17 15:20 36.7 94 12 129/79 (96) 94 Oxymask 2.0 07/12/17 12:28 37.2 102 16 124/79 (94) 91 Oxymask 2.0 07/12/17 08:30 Oxymask 2.0 07/12/17 07:19 36.8 100 19 123/76 (92) 93 4.0 Laboratory Results 24 Hours: Test 07/12/17 13:06 07/13/17 06:26 White Blood Count 17.43 K/uL 10.27 K/uL Red Blood Count 4.36 M/uL 3.76 M/uL Hemoglobin 11.3 g/dL 9.6 g/dL Hematocrit 32.3 % 28.7 % Mean Corpuscular Volume 74.1 fL 76.3 fL Mean Corpuscular Hemoglobin 25.9 pg 25.5 pg Mean Corpuscular Hemoglobin Concent 35.0 g/dl 33.4 g/dl Platelet Count 107 K/uL 88 K/uL Mean Platelet Volume 10.8 fL 10.1 fL Neutrophils (%) (Auto) 77.3 % Lymphocytes (%) (Auto) 8.3 % Monocytes (%) (Auto) 13.7 % Eosinophils (%) (Auto) 0.0 % Basophils (%) (Auto) 0.1 % Neutrophils # (Auto) 13.48 K/uL Lymphocytes # (Auto) 1.44 K/uL Monocytes # (Auto) 2.39 K/uL Eosinophils # (Auto) 0.00 K/uL Basophils # (Auto) 0.01 K/uL Assessment & Plan Assessment: POD 3 s/p L troch nail Plan: WBAT LLE heparin recommended by pharmacy for DVT proph secondary to Cr clearance Pain controlled D/C planning per medicine. HSNV would be appropriate when ready per medicine. SHE IS STABLE FROM AN ORTHOPEDIC STANDPOINT. WE WILL SIGN OFF AT THIS TIME. IF ANY CONCERNS, PLEASE CONSULT. Inhouse Planning Pain Management: Dilaudid, PO Tylenol DVT Prophylaxis: TEDs, SCDs, Lovenox Discharge Planning Discharge Planning: uncertain Therapy: Physical Therapy
[2017-07-13 07:22] LABS: ALB/GLOB RATIO 0.5 (0.9-2); BUN/CREATININE RATIO 46.4 (10-20); CALCIUM 8.4 mg/dl (8.5-10.1); POTASSIUM 4.8 mmol/L (3.5-5.1)
[2017-07-13 07:23] LABS: ANISOCYTOSIS PRESENT; COMPLETE YES; HYPOCHROMIA PRESENT; IG% 0.3 %; LYMPH % 8.5 %; LYMPH ABS # 0.87 K/uL (1.2-3.4); MONO % 15.3 %; NEUT % 75.9 %; PLT ESTIMATE DECREASED
--- NOTE | 2017-07-13 07:35 | DIAGNOSTIC IMAGING REPORT ---
CHEST ONE VIEW PORTABLE CLINICAL HISTORY: Elevated white count. Postsurgical patient. COMPARISON STUDY: A [id number] FINDINGS: The cardiac and mediastinal contours remain stable. There is no failure. There is no lobar consolidation. Linear right perihilar opacities are likely atelectatic. There are no pleural effusions. There are postsurgical changes within the cervical spine.[ IMPRESSION: Right perihilar subsegmental atelectasis. Electronically signed by: Patrick Rodriguez M.D. 07/13/2017 7:33 AM Dictated Date/Time: 07/13/2017 7:32 AM
--- NOTE | 2017-07-13 07:40 | Anesthesiology Progress Note ---
Anesthesia Post Op Note Date & Time Jul 13, 2017 at 07:40 Vital Signs Pain Intensity: 0.0 Vital Signs Past 12 Hours Date Time Temp Pulse Resp B/P (MAP) Pulse Ox O2 Delivery O2 Flow Rate FiO2 07/13/17 00:15 Oxymask 2.0 07/12/17 23:01 36.3 98 18 124/64 (84) 94 Oxymask 2.0 Notes Mental Status: alert / awake / arousable, participated in evaluation Pt Amnestic to Procedure: Yes Nausea / Vomiting: adequately controlled Pain: adequately controlled Airway Patency, RR, SpO2: stable & adequate BP & HR: stable & adequate Hydration State: stable & adequate Anesthetic Complications: no major complications apparent
[2017-07-13 07:44] LABS: ESTIMATED AVERAGE GLUCOSE 235 mg/dl; HA1C FLAG Normal (Normal)
[2017-07-13] MEDS: ONDANSETRON INJ 2 MG/ML 2 ML VIAL IV PRN (08:59)
[2017-07-13] MEDS: FLUTICASONE PROPIONATE NA SPR 16 GM BTL NAE SCH (09:00)
[2017-07-13] MEDS: HYDROCORTISONE 2.5% CR 30 GM TUBE EXT SCH (09:07)
[2017-07-13] MEDS: METOPROLOL SUCC 25MG EXT REL TAB PO SCH (09:16)
[2017-07-13] MEDS: LEVETIRACETAM 500 MG TAB PO SCH ×2 (09:18→21:19)
[2017-07-13] MEDS: VENLAFAXINE HCL XR 150 MG CAPXR PO SCH (09:19)
[2017-07-13] MEDS: GABAPENTIN 100 MG CAP PO SCH ×2 (09:21→21:19)
[2017-07-13] MEDS: CALCIUM 600MG + VIT D 400 IU TAB PO SCH ×3 (09:21→21:19)
[2017-07-13] MEDS: PANTOprazole SOD 40 MG TAB PO SCH ×2 (09:21→21:20)
[2017-07-13] MEDS: RIFAXIMIN TAB 550 MG TAB PO SCH ×2 (09:22→21:20)
[2017-07-13] MEDS: FUROSEMIDE 20 MG TAB PO SCH (09:22)
--- NOTE | 2017-07-13 09:36 | Pharmacy Progress Note ---
Glycemic Control Progress Note Date of Service Jul 13, 2017. Scope Glycemic Pharmacist consulted for glycemic control to write orders per [facility] inpatient glycemic control protocol. Objective Accuchecks BSG (last 24hrs): Test 07/12/17 12:08 07/12/17 12:55 07/12/17 17:08 07/12/17 20:42 Bedside Glucose 168 mg/dl (70-90) 146 mg/dl (70-90) 157 mg/dl (70-90) Random Glucose 143 mg/dl (70-99) Test 07/13/17 00:03 07/13/17 04:19 07/13/17 06:26 Bedside Glucose 143 mg/dl (70-90) 137 mg/dl (70-90) Random Glucose 127 mg/dl (70-99) HbA1c: Test 07/12/17 06:48 Hemoglobin A1c 9.8 % (4.5-5.6) H Recent Pertinent Medications The patient is currently receiving: * Basal insulin: 07/11 Lantus 70 units total (Decadron x 1 dose on PM) 07/12 Lantus 40 units total * Correctional Insulin: Novolog Correction per scale ACHS Goal Range: Low 110 mg/dL - High 140 mg/dL Correction Factor: 20 mg/dL/unit * Prandial insulin: Per carb ratio of 1 unit per 7 grams CHO consumed Outpatient Anti-Diabetic Meds * Toujeo 80 units HS * Novolog 12 units AC Assessment & Plan ASSESSMENT: * See progress note from 07/12 for more background info, in short: * Pt receiving SQ basal bolus insulin regimen for hyperglycemia secondary to baseline DM (outpatient regimen on hold) * Patient is currently receiving an average of 46 units of insulin per day ( minimal po intake so almost all basal) * 40 units of basal insulin * BSGs ranging 127 - 168 mg/dl over the past 24hrs * Changes needed to insulin regimen: * None so far * Will need to monitor closely with reduced po intake PLAN FOR INPATIENT GLYCEMIC CONTROL: * Continue Lantus 40 units qHS * Continue Novolog ACHS, d/c overnight accuchecks since BSGs improved * Goal 110-140 * CF 20 * CR 7 * Please note that the plan above was derived based on current level of insulin resistance and hospital stress. These recommendations are appropriate for inpatient admission only. Plan of care upon discharge will need to be reassessed to avoid potential outpatient hypo/hyperglycemia. Thank you.
--- NOTE | 2017-07-13 14:45 | Family Medicine Progress Note ---
Progress Note Date of Service Jul 13, 2017. Subjective Pt evaluation today including: conversation w/ patient, physical exam, chart review, lab review Pain: complained of being in a lot of pain this AM and requested pain medications PO Intake: tolerating Voiding: no voiding problems Ms. Carlin appeared uncomfortable and delirious this AM. She was oriented to person but not time and place. She was removing her oxygen mask and pulling on her finger pulse ox. Additionally, she reported mild chest pain and nausea but no sob. Constitutional: No fever Respiratory: No shortness of breath Cardiovascular: + chest pain (mild) Abdomen: + nausea, No vomiting Medications Current Inpatient Medications Medications (Trade) Dose Ordered Sig/Alyse Route Start Time Stop Time Status Last Admin Dose Admin Ondansetron HCl (Zofran Inj) 4 mg Q6H PRN IV 07/09/17 20:00 08/08/17 19:59 07/13/17 08:59 4 MG Oxycodone HCl (Roxicodone Immediate Rel Tab) 5 mg Q4H PRN PO 07/09/17 20:00 07/23/17 19:59 07/12/17 00:50 5 MG Morphine Sulfate (MoRPHine SULFATE INJ) 2 mg Q2H PRN IV 07/09/17 20:00 07/23/17 19:59 Future Hold Naloxone HCl (Narcan Inj) 0.1 mg PRN PRN IV 07/09/17 20:00 08/08/17 19:59 Senna/Docusate Sodium (Senokot S Tab) 2 tab HS PO 07/09/17 21:00 08/08/17 20:59 07/11/17 21:37 2 TAB Polyethylene (Miralax Powder Packet) 17 gm DAILY PRN PO 07/09/17 20:00 08/08/17 19:59 Bisacodyl (Dulcolax Supp) 10 mg DAILY PRN CA 07/09/17 20:00 08/08/17 19:59 Sodium Biphosphate/ Sodium Phosphate (Fleet Enema) 132 ml PRN PRN CA 07/09/17 20:00 Acetaminophen (Tylenol Tab) 650 mg Q4H PRN PO 07/09/17 20:00 08/08/17 19:59 Al Hydrox/Mg Hydrox/Simethicone (Maalox Max Susp) 15 ml Q4H PRN PO 07/09/17 20:00 08/08/17 19:59 Magnesium Hydroxide (Milk Of Magnesia Susp) 30 ml Q6H PRN PO 07/09/17 20:00 08/08/17 19:59 Glucose (Glucose 40% Gel) 15-30 GRAMS 15 GRAMS... UD PRN PO 07/09/17 20:00 08/08/17 19:59 Glucose (Glucose Chew Tab) 4-8 Tablets 4 Tabl... UD PRN PO 07/09/17 20:00 08/08/17 19:59 Dextrose (Dextrose 50% 50ML Syringe) 25-50ML OF 50% DW IV FOR... UD PRN IV 07/09/17 20:00 08/08/17 19:59 Glucagon (Glucagon Inj) 1 mg UD PRN SQ 07/09/17 20:00 08/08/17 19:59 Bisacodyl (Dulcolax Tab) 5 mg DAILY PRN PO 07/09/17 20:15 08/08/17 20:14 Calcium/Vitamin D (Caltrate Plus Tab) 1 tab TID PO 07/09/17 21:00 08/08/17 20:59 07/13/17 14:09 1 TAB Fluticasone Propionate (Flonase Nasal [place]) 2 sprays DAILY KODY 07/10/17 09:00 08/09/17 08:59 07/13/17 09:00 2 SPRAYS Furosemide (Lasix Tab) 20 mg DAILY PO 07/10/17 09:00 08/09/17 08:59 07/13/17 09:22 20 MG Gabapentin (Neurontin Cap) 100 mg BID PO 07/09/17 21:00 08/08/17 20:59 07/13/17 09:21 100 MG Hydrocortisone (Hydrocortisone 2.5% Crm) 1 appln DAILY EXT 07/10/17 09:00 08/09/17 08:59 07/13/17 09:07 1 APPLN Metoprolol Succinate (Toprol Xl Tab) 12.5 mg DAILY PO 07/10/17 09:00 08/09/17 08:59 07/13/17 09:16 12.5 MG Potassium Chloride (Klor-Con M10) 10 meq BID PO 07/09/17 21:00 08/08/17 20:59 Future Hold 07/11/17 21:37 10 MEQ Rifaximin (Xifaxan Tab) 550 mg BID PO 07/09/17 21:00 08/08/17 20:59 07/13/17 09:22 550 MG Venlafaxine HCl (effeXOR EXTENDED REL CAP) 150 mg DAILY PO 07/10/17 09:00 08/09/17 08:59 07/13/17 09:19 150 MG Pantoprazole Sodium (Protonix Tab) 40 mg BID PO 07/09/17 21:00 08/08/17 20:59 07/13/17 09:21 40 MG Levetiracetam (Keppra Tab) 1,000 mg BID PO 07/09/17 21:00 08/08/17 20:59 07/13/17 09:18 1,000 MG Spironolactone (Aldactone Tab) 50 mg DAILY PO 07/10/17 09:00 08/09/17 08:59 Future Hold 07/11/17 09:31 50 MG Enoxaparin Sodium (Lovenox Inj) 40 mg DAILY@0600 SQ 07/11/17 06:00 08/10/17 05:59 07/13/17 05:47 40 MG Miscellaneous Information (Pharmacy Consult) 1 barber PRN N/A 07/10/17 19:45 08/09/17 19:44 Hydromorphone HCl (Dilaudid Inj) 0.25 mg Q20M PRN IV 07/10/17 19:45 07/24/17 19:44 Hydromorphone HCl (Dilaudid Inj) 0.5 mg Q20M PRN IV 07/10/17 19:45 07/24/17 19:44 Menthol (Nice Kirstin) 1 kirstin Q2H PRN PO 07/10/17 19:45 08/09/17 19:44 Polyethylene (Miralax Powder Packet) 17 gm Q6 PO 07/12/17 06:00 08/11/17 05:59 07/12/17 06:20 17 GM Insulin Aspart (novoLOG ASPART) SLIDING SCALE If C... ACHS SC 07/11/17 08:00 08/10/17 07:59 07/13/17 13:19 1 UNITS Miscellaneous Information (Consult Glycemic Management Pharmacy) 1 [facility] PRN N/A 07/11/17 13:41 08/10/17 13:40 Insulin Glargine (Lantus Solostar Pen) 40 units QPM SC 07/12/17 17:00 08/11/17 16:59 07/12/17 17:54 40 UNITS Resident Involvement: Resident Care Provided Care Provided: Adult [facility] Medicine Objective Vital Signs Date Time Temp Pulse Resp B/P (MAP) Pulse Ox O2 Delivery O2 Flow Rate FiO2 07/13/17 12:10 36.5 80 14 110/62 (78) 100 Nasal Cannula 4.0 07/13/17 10:25 97 Oxymask 4.0 07/13/17 08:45 97 Oxymask 4.0 07/13/17 08:15 36.6 87 14 121/75 (90) 97 Oxymask 4.0 07/13/17 00:15 Oxymask 2.0 07/12/17 23:01 36.3 98 18 124/64 (84) 94 Oxymask 2.0 07/12/17 15:35 94 94 07/12/17 15:25 93 Oxymask 2.0 07/12/17 15:20 36.7 94 12 129/79 (96) 94 Oxymask 2.0 Physical Exam General Appearance: + moderate distress Eyes: normal inspection Respiratory/Chest: lungs clear, normal breath sounds, no respiratory distress Cardiovascular: regular rate, rhythm Abdomen: normal bowel sounds, non tender, soft Extremities: no pedal edema 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iatric: + disoriented Skin: warm/dry Laboratory Results 07/13/17 06:26 Red Blood Count 3.76, Mean Corpuscular Volume 76.3, Mean Corpuscular Hemoglobin 25.5, Mean Corpuscular Hemoglobin Concent 33.4, Mean Platelet Volume 10.1, Neutrophils (%) (Auto) 75.9, Lymphocytes (%) (Auto) 8.5, Monocytes (%) (Auto) 15.3, Eosinophils (%) (Auto) 0.0, Basophils (%) (Auto) 0.0, Neutrophils # (Auto ) 7.80, Lymphocytes # (Auto) 0.87, Monocytes # (Auto) 1.57, Eosinophils # (Auto ) 0.00, Basophils # (Auto) 0.00 07/13/17 06:26 Test 07/13/17 00:00 07/13/17 06:26 07/13/17 09:35 07/13/17 12:14 Urine Color DK YELLOW Urine Appearance CLEAR (CLEAR) Urine pH 5.5 (4.5-7.5) Urine Specific Hansen 1.025 (1.000-1.030) Urine Protein NEG (NEG) Urine Glucose (UA) NEG (NEG) Urine Ketones NEG (NEG) Urine Occult Blood NEG (NEG) Urine Nitrite NEG (NEG) Urine Bilirubin NEG (NEG) Urine Urobilinogen NEG (NEG) Urine Leukocyte Esterase NEG (NEG) White Blood Count 10.27 K/uL (4.8-10.8) Red Blood Count 3.76 M/uL (4.2-5.4) Hemoglobin 9.6 g/dL (12.0-16.0) Hematocrit 28.7 % (37-47) Mean Corpuscular Volume 76.3 fL (80-100) Mean Corpuscular Hemoglobin 25.5 pg (25-34) Mean Corpuscular Hemoglobin Concent 33.4 g/dl (32-36) Platelet Count 88 K/uL (130-400) Mean Platelet Volume 10.1 fL (7.4-10.4) Neutrophils (%) (Auto) 75.9 % Lymphocytes (%) (Auto) 8.5 % Monocytes (%) (Auto) 15.3 % Eosinophils (%) (Auto) 0.0 % Basophils (%) (Auto) 0.0 % Neutrophils # (Auto) 7.80 K/uL (1.4-6.5) Lymphocytes # (Auto) 0.87 K/uL (1.2-3.4) Monocytes # (Auto) 1.57 K/uL (0.11-0.59) Eosinophils # (Auto) 0.00 K/uL (0-0.5) Basophils # (Auto) 0.00 K/uL (0-0.2) RDW Standard Deviation 47.2 fL (36.4-46.3) RDW Coefficient of Variation 17.1 % (11.5-14.5) Immature Granulocyte % (Auto) 0.3 % Immature Granulocyte # (Auto) 0.03 K/uL (0.00-0.02) Platelet Estimate DECREASED Hypochromasia PRESENT Anisocytosis PRESENT Anion Gap 4.0 mmol/L (3-11) Est Creatinine Clear Calc Drug Dose 57.3 ml/min Estimated GFR () 69.0 Estimated GFR (Non- 59.5 BUN/Creatinine Ratio 46.4 (10-20) Calcium Level 8.4 mg/dl (8.5-10.1) Total Bilirubin 3.0 mg/dl (0.2-1) Aspartate Amino Transf (AST/SGOT) 108 U/L (15-37) Alanine Aminotransferase (ALT/SGPT) 34 U/L (12-78) Alkaline Phosphatase 129 U/L (45-117) Total Protein 5.3 gm/dl (6.4-8.2) Albumin 1.7 gm/dl (3.4-5.0) Globulin 3.6 gm/dl (2.5-4.0) Albumin/Globulin Ratio 0.5 (0.9-2) Ammonia 14.0 umol/L (11-32) Bedside Glucose 117 mg/dl (70-90) Test 07/13/17 14:00 Assessment and Plan 62 year old with hx of cirrhosis, seizure Disorder and hepatitis C, admitted for fall and displaced left intertrochanteric hip fracture s/p ORIF on 07/10 Left Intertrochanteric Hip Fracture - ORIF of left hip performed evening of 25Aug - Pain controlled with Tylenol, Dilaudid IV PRN - WBC normalized to 10.27 this AM, afebrile, will continue to monitor Osteoporosis -low Vit D: 21.7 - Phos and Mag ordered given osteoporosis and decreased Vit D level -Outpatient follow up with Dr. Singh in [place] - ? sec to hypotension, orthostasis, seizure. Follow up on an outpatient basis Head Injury due to Fall - Non-contrast head CT negative for acute pathology Hyperkalemia - resolved -K was 4.8 today - back to baseline -Restart spironolactone BERNIE - resolved -Cr improved to 1 today -Hyponatremia, hyperkalemia resolved -IVF decreased to 75 mls/hr today from 100mls/hr given improvement to avoid fluid overload Right Hilar Opacity - Unclear if infective vs nodule - Procalcitonin <.05 - CT non-contrast for further characterization is overall unremarkable - Patient is not having new O2 requirements COPD - home inhalers Diabetes mellitus - Hold home medications - SC insulin with BG checks - BG 127 this AM, ranging between 120-160. Appropriate given moderately stressed clinical state Seizure Disorder - Continue Keppra Cirrhosis/Portal HTN 2/2 Hep C and Previous EtOH - Continue Lasix, Spironolactone - Continue Rifaximin - Ammonia level 14 today given altered mental status - Meld score 15 - Coags pending Thrombocytopenia - 81k - Appears chronic based on previous Plt Counts; like 2/2 Cirrhosis - No evidence of active bleeding - This does not preclude use of prophylactic anticoagulation HTN - Continue Metoprolol Depression - Continue Effexor Hepatitis C - Not on treatment DVT Prophylaxis - SCD Knee, LIZET Hose - Lovenox 40mg Code Status - Level I Full Code Disposition - Med/Surg - OT and PT evaluations Reviewed: Pt Seen/Exam by Me History Resident Physician Supervision Note: I interviewed and examined the patient. Discussed with Dr. Padron and agree with findings and plan as documented in the note. Any exceptions or clarifications are listed here: Patient was reportedly confused off and on today. Ammonia level was normal. When I saw her, she was oriented 3, she complained of the left posterior headache. No photophobia, her left hip was painful as well. Her Woodruff catheter is still in as nursing reports that she is not motivated to move much. She is asking for oxycodone. Renal function improved today, bilirubin up higher than normal, potassium improved today. Hemoglobin dropped 1.7 g. Vitals reviewed Sleeping but wakes up easily and answers questions appropriately Pupils equally round and reactive to light, extraocular muscles intact, cranial nerves II through XII are grossly intact, positive tenderness to palpation over left posterior head, no obvious hematoma palpated Regular rate and rhythm, no murmurs gallops or rubs Lungs clear to auscultation bilaterally Abdomen positive bowel sounds soft nontender nondistended Extremities left hip with dressing clean dry and intact, minimal surrounding edema, calves are soft, 2 posterior cells pedis pulses bilaterally Skin no rashes 62-year-old female here with a mechanical fall after chasing after her dog in the front yard. With some prolonged postoperative course secondary to likely opioid induced delirium. But with head injury, will repeat head CT stat now to rule out intracranial hemorrhage. Otherwise, watch for signs of infection, UA is negative -For her worsening anemia, Hemoccult stool, follow CBC -Okay to restart Aldactone along with her Lasix to prevent ascites -Change oxycodone to 2.5 mg every 4 hours only to avoid opioid-induced delirium -Remove Woodruff in the morning hopefully Documented By: Sasha Toribio
[2017-07-13 15:26] LABS: MAGNESIUM 1.9 mg/dl (1.8-2.4); PHOSPHORUS 2.2 mg/dl (2.5-4.9)
[2017-07-13 15:52] LABS: HEMATOCRIT 28.1 % (37-47)
[2017-07-13 16:01] LABS: INR 1.5 (0.9-1.1); PARTIAL THROMBOPLASTIN RATIO 1.4; PROTHROMBIN TIME (PATIENT) 16.6 SECONDS (9.0-12.0)
[2017-07-13] MEDS ORDERED: LACTULOSE SYRUP 30 GM/45 ML UDP PO ONE (16:45)
--- NOTE | 2017-07-13 20:06 | DIAGNOSTIC IMAGING REPORT ---
CT OF THE HEAD WITHOUT CONTRAST CLINICAL HISTORY: Fall. COMPARISON STUDY: Head CT July 09, 2017. CT DOSE: 614.27 mGy.cm TECHNIQUE: Helical axial images of the head were obtained without IV contrast. Automated exposure control was utilized for the study. A dose lowering technique was utilized adhering to the principles of ALARA. FINDINGS: No acute intracranial hemorrhage, midline shift or mass effect is present. Ventricular system is normal. Basilar cisterns are patent. There are no extra-axial collections. Mild white matter hypodensity suggests small vessel disease. There are no findings to suggest acute dural sinus thrombosis or acute territorial infarct. There is no calvarial fracture. Bilateral nasal bone deformities are noted. This is age indeterminate. There is rightward deviation of the nose. There are postsurgical findings within the sinuses. IMPRESSION: 1. No acute intracranial findings. 2. No calvarial fracture. 3. Bilateral nasal bone deformity with age indeterminate fractures. This could be correlated with history of recent nasal trauma. Electronically signed by: Marcos Min M.D. 07/13/2017 8:05 PM Dictated Date/Time: 07/13/2017 7:57 PM
[2017-07-13] MEDS: DOCUSATE SODIUM/SENNA 50/8.6MG TAB PO SCH (21:20)
[2017-07-13] MEDS: INSULIN GLARGINE SOLOSTAR 100 UNITS/ML 3 ML PEN SC SCH (21:23)
[2017-07-13] MEDS ORDERED: ERGOCALCIFEROL 50,000 INTER.UNIT CAP PO ONE (22:00)
[2017-07-13] MEDS: OXYCODONE HCL IR 5 MG TAB (IMMEDIATE RELEASE) PO PRN (22:11)
[2017-07-14] MEDS: POLYETHYLENE (MIRALAX) 17 GM PACK PO SCH ×4 (06:00→18:16)
[2017-07-14 07:25] VITALS: BP 103/64; PULSE 79; TEMP 36.7; O2SAT 98
[2017-07-14 07:30] VITALS: O2SAT 94
[2017-07-14 07:43] LABS: COMPLETE YES; EOS % 0.5 %; IG% 0.7 %; LYMPH % 16.1 %; LYMPH ABS # 0.68 K/uL (1.2-3.4); MEAN CELL VOLUME 77.4 fL (80-100); MEAN CORPUSCULAR HEMOGLOBIN 25.8 pg (25-34); MEAN CORPUSCULAR HGB CONC 33.3 g/dl (32-36); MEAN PLATELET VOLUME 9.7 fL (7.4-10.4); MONO % 14.9 %; NEUT % 67.8 %; PLATELET COUNT 60 K/uL (130-400); RED BLOOD COUNT 3.49 M/uL (4.2-5.4); WHITE BLOOD COUNT 4.22 K/uL (4.8-10.8)
[2017-07-14 08:00] LABS: BUN/CREATININE RATIO 41.4 (10-20); CALCIUM 8.2 mg/dl (8.5-10.1); CREATININE 0.84 mg/dl (0.60-1.20); POTASSIUM 4.1 mmol/L (3.5-5.1)
[2017-07-14 08:03] LABS: ALB/GLOB RATIO 0.4 (0.9-2)
[2017-07-14] MEDS: GLUCOSE 40% GEL 15 GM TUBE PO PRN (08:22)
[2017-07-14] MEDS: FLUTICASONE PROPIONATE NA SPR 16 GM BTL NAE SCH (08:49)
[2017-07-14] MEDS: RIFAXIMIN TAB 550 MG TAB PO SCH ×2 (08:50→21:35)
[2017-07-14] MEDS: FUROSEMIDE 20 MG TAB PO SCH (08:50)
[2017-07-14] MEDS: VENLAFAXINE HCL XR 150 MG CAPXR PO SCH (08:51)
[2017-07-14] MEDS: PANTOprazole SOD 40 MG TAB PO SCH ×2 (08:51→21:34)
[2017-07-14] MEDS: LEVETIRACETAM 500 MG TAB PO SCH ×2 (08:52→21:34)
[2017-07-14] MEDS: METOPROLOL SUCC 25MG EXT REL TAB PO SCH (08:53)
[2017-07-14] MEDS: GABAPENTIN 100 MG CAP PO SCH ×2 (08:54→21:34)
[2017-07-14] MEDS: CALCIUM 600MG + VIT D 400 IU TAB PO SCH ×3 (08:55→21:34)
[2017-07-14] MEDS: HYDROCORTISONE 2.5% CR 30 GM TUBE EXT SCH (08:55)
[2017-07-14] MEDS: SPIRONOLACTONE 25 MG TAB PO SCH (08:56)
[2017-07-14] MEDS: INSULIN ASPART 100 UNITS/ML 3 ML PEN SC SCH ×4 (09:02→21:00)
--- NOTE | 2017-07-14 09:13 | Pharmacy Progress Note ---
Glycemic Control Progress Note Date of Service Jul 14, 2017. Scope Glycemic Pharmacist consulted for glycemic control to write orders per [facility] inpatient glycemic control protocol. Objective Accuchecks BSG (last 24hrs): Test 07/13/17 12:14 07/13/17 17:04 07/13/17 20:23 07/14/17 07:05 Bedside Glucose 117 mg/dl (70-90) 166 mg/dl (70-90) 175 mg/dl (70-90) Random Glucose 63 mg/dl (70-99) Test 07/14/17 08:03 Bedside Glucose 64 mg/dl (70-90) HbA1c: Test 07/12/17 06:48 Hemoglobin A1c 9.8 % (4.5-5.6) H Recent Pertinent Medications The patient is currently receiving: * Basal insulin: 07/11 Lantus 70 units total (Decadron x 1 dose on PM) 07/12 and 07/13 Lantus 40 units qPM * Correctional Insulin: Novolog Correction per scale ACHS Goal Range: Low 110 mg/dL - High 140 mg/dL Correction Factor: 20 mg/dL/unit * Prandial insulin: Per carb ratio of 1 unit per 7 grams CHO consumed Outpatient Anti-Diabetic Meds * Toujeo 80 units HS * Novolog 12 units AC Assessment & Plan ASSESSMENT: * See progress note from 07/13 for more background info, in short: * Pt receiving SQ basal bolus insulin regimen for hyperglycemia secondary to baseline DM (outpatient regimen on hold) * Patient is currently receiving an average of 50 units of insulin per day * 40 units of basal insulin * BSGs ranging 63-175 mg/dl over the past 24hrs * PO intake has increased slightly but remains minimal * Changes needed to insulin regimen: * AM fasting = 64; will reduce basal by ~10% * Postprandial BSGs yesterday increased slightly but hesitant to tighten prandial coverage with hypoglycemia this AM. Will follow up tomorrow. PLAN FOR INPATIENT GLYCEMIC CONTROL: * Decrease Lantus to 35 units qHS * Continue Novolog ACHS * Goal 110-140 * CF 20 * CR 7 DISCHARGE RECOMMENDATIONS: * With current po intake, patient requiring < 1/2 of her reported outpatient dose * If po intake remains low, consider discharging to [facility] on Toujeo (or Lantus) 35 units qHS + Novolog 6 units with meals (hold if not eating). This will need to be followed closely and adjusted as po intake advances. Thank you.
[2017-07-14 09:29] VITALS: BMI 25.1
[2017-07-14 10:27] LABS: INR 1.4 (0.9-1.1); PARTIAL THROMBOPLASTIN RATIO 1.3; PROTHROMBIN TIME (PATIENT) 15.7 SECONDS (9.0-12.0)
--- NOTE | 2017-07-14 11:45 | Gastrointestinal Consultation ---
Gastrointestinal Consultation Date of Consultation: Jul 14, 2017 Attending Physician: Dr. Padron Consulting Physician: Dr. Hernandez Reason for Consultation: positive occult stool and decreasing hemoglobin History of Present Illness Patient is a 62 year old female patient with HCV cirrhosis status post treatment who was admitted for hip replacement after she sustained a fracture from a fall. Since admission her hemoglobin has trended down from 14.8-9.0 since her admission 5 days ago. A review of old records shows that her hemoglobin baseline is most likely approximately 13. I reviewed her outpatient records. Most recent EGD was in 2013 and was normal without any esophageal varices. Patient tells me that she has been following for liver issues with Dr. Verma since that time. She is seen and examined while she is resting in bed. When asked if she has abdominal pain she points to her left groin. She denies any heartburn or reflux. She is unaware of any melena or hematochezia a review of her nursing records shows that her first bowel movement since surgery was today, a small smear, a color was not noted. She has not had any vomiting. She has remained hemodynamically stable without tachycardia or hypotension. Past Medical/Surgical History Medical Problems: (1) Acute exacerbation of chronic low back pain Status: Acute (2) Anxiety Status: Acute (3) Back pain Status: Acute (4) Chronic abdominal pain Status: Acute (5) Chronic diarrhea Status: Acute (6) Complaints of total body pain Status: Acute (7) Contusion of multiple sites Status: Acute (8) Elevated bilirubin Status: Acute (9) Episodic overuse of medication Status: Acute (10) Facial pain Status: Acute (11) Fatigue Status: Acute (12) Hallucinations Status: Acute (13) Headache Status: Acute (14) Hyperglycemia Status: Acute (15) Hyperglycemia Status: Acute (16) Migraine Status: Acute (17) Migraine Status: Acute (18) Migraine Status: Acute (19) Migraine Status: Acute (20) Migraine Status: Acute (21) Migraine Status: Acute (22) Migraine Status: Acute (23) Opioid withdrawal Status: Acute (24) Paranoia Status: Acute (25) Pyelonephritis Status: Acute (26) Renal colic on left side Status: Acute (27) Skin tear Status: Acute (28) Thrombocytopenia Status: Acute (29) Vomiting Status: Acute Past Medical History: 1. Migraines 2. Hep C cirrhosis. 3. COPD 4. Type 2 diabetes 5. Seizure disorder 6. Osteoporosis Past Surgical History: 1. Left hip fracture repair on 07/10/2017 2. EGD in 2014 normal 3. Cholecystectomy 4. Lumbar laminectomy 5. Lumbar [place] plasty 6. Rhinoplasty Family History Adopted Social History Smoking Status: Current Every Day Smoker Alcohol Use: other Drug Use: none Marital Status: Housing Status: lives with friends Occupation Status: disabled Allergies Coded Allergies: Coconut (Verified Allergy, Unknown, ANAPHYLAXIS, 05/11/17) Modafinil (Verified Adverse Reaction, Severe, MAKES HYPER, 05/11/17) Sulfamethoxazole (Verified Adverse Reaction, Intermediate, PT STATES NOT GOOD FOR LIVER, 05/11/17) PT STATES (NOT GOOD FOR LIVER) Zolpidem (Verified Adverse Reaction, Intermediate, LIVER PROBLEMS, 05/11/17 ) Morphine (Verified Adverse Reaction, Mild, hallucinations, 05/11/17) Current Medications Home Meds and Scripts Medications Dose Route/Sig Max Daily Dose Days Date Category Hydrocortisone 90 Appln/30 Gm Cr 1 Appln TOP PRN UD 07/09/17 Reported Levetiracetam 1,000 Mg Tab 1,000 Mg PO BID 07/09/17 Reported Toujeo Solostar (Insulin Glargine) 300 Unit/Ml Inj 80 Units SQ HS 07/09/17 Reported Novolog Flexpen (Insulin Aspart) 100 Units/Ml Inj 12 Ut SC AC 07/09/17 Reported Bisacodyl 5 Mg Tab 5 Mg PO UD PRN 05/11/17 Reported Roxicodone Ir (Oxycodone HCl) 5 Mg Tab 10 Mg PO TID PRN 02/28/16 Reported Micro-K Ext Rel (Potassium Chloride) 10 Meq Cap 10 Meq PO BID 02/03/16 Reported Effexor Extended Rel (Venlafaxine Hcl) 150 Mg Cap 150 Mg PO DAILY 11/19/15 Reported Metoprolol Succinate ER (Metoprolol Succinate) 25 Mg Tabcr 12.5 Mg PO DAILY 10/09/14 Reported Prevacid (Lansoprazole) 30 Mg Cap 30 Mg PO BID 10/09/14 Reported Gabapentin 100 Mg Cap 100 Mg PO BID 10/09/14 Reported Fluticasone Propionate 120 Sprays/6000 Mcg Inha 2 Sprays KODY DAILY 10/09/14 Reported Furosemide 20 Mg Tab 20 Mg PO DAILY 10/09/14 Reported Aldactone (Spironolactone) 50 Mg Tab 50 Mg PO DAILY 09/06/14 Reported Caltrate 600 Plus (Calcium Carbonate-Vitamin D W/) 1 Tab Tab 1 Tablet PO TID 03/16/13 Reported Cranberry (Cranberry (Vaccinium Macrocarp) 500 Mg Cap 500 Mg PO DAILY 02/12/13 Reported Xifaxan (Rifaximin) 550 Mg Tab 550 Mg PO BID 01/15/12 Reported Review of Systems Constitutional: No fever, No chills, No sweats, No weight loss, No weakness Eyes: No eye pain, No redness ENT: No sore throat, No trouble swallowing, No pain on swallowing Respiratory: No cough, No wheezing, No shortness of breath, No dyspnea on exertion Cardiac: No chest pain, No edema, No palpitations Abdomen: + see HPI Neuro: No memory loss, No weakness, No numbness/tingling, No vertigo, No balance problems Psych: No depression symptoms, No anxiety, No insomnia Heme: No abnormal bleeding/bruising, No night sweats Endo: No excessive thirst, No excessive urination Skin: No rash, No itch, No new/changing skin lesions, No jaundice Physical Exam Date Time Temp Pulse Resp B/P (MAP) Pulse Ox O2 Delivery O2 Flow Rate FiO2 07/14/17 07:30 94 Nasal Cannula 2.0 Humidified Oxygen 07/14/17 07:25 36.7 79 20 103/64 (77) 98 Nasal Cannula 4.0 Humidified Oxygen 07/14/17 01:15 Nasal Cannula 4.0 Humidified Oxygen 07/13/17 22:45 36.9 78 18 111/71 (84) 100 Nasal Cannula 4.0 Humidified Oxygen 07/13/17 17:00 Nasal Cannula 4.0 07/13/17 15:20 36.4 83 16 112/67 (82) 100 Nasal Cannula 4.0 07/13/17 12:10 36.5 80 14 110/62 (78) 100 Nasal Cannula 4.0 General Appearance: no apparent distress Eyes: normal inspection, EOMI Neck: supple, no adenopathy, thyroid normal Respiratory/Chest: chest non-tender, normal breath sounds, no accessory muscle use, + decreased breath sounds, + crackles (few in the right base) Cardiovascular: regular rate, rhythm, no JVD, no murmur Abdomen: normal bowel sounds, non tender, soft, no organomegaly Extremities: normal inspection, no pedal edema, normal capillary refill 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: alert, normal mood/affect, oriented x 3 Skin: normal color, no jaundice, warm/dry, no rash Laboratory Results Last 24 Hours Test 07/13/17 12:14 07/13/17 14:30 07/13/17 15:25 07/13/17 17:04 Bedside Glucose 117 mg/dl 166 mg/dl Phosphorus Level 2.2 mg/dl Magnesium Level 1.9 mg/dl Hemoglobin 9.4 g/dL Hematocrit 28.1 % Prothrombin Time 16.6 SECONDS Prothromb Time International Ratio 1.5 Activated Partial Thromboplast Time 35.5 SECONDS Partial Thromboplastin Ratio 1.4 Test 07/13/17 20:23 07/14/17 01:27 07/14/17 07:05 07/14/17 08:03 Bedside Glucose 175 mg/dl 64 mg/dl Stool Occult Blood POSITIVE White Blood Count 4.22 K/uL Red Blood Count 3.49 M/uL Hemoglobin 9.0 g/dL Hematocrit 27.0 % Mean Corpuscular Volume 77.4 fL Mean Corpuscular Hemoglobin 25.8 pg Mean Corpuscular Hemoglobin Concent 33.3 g/dl Platelet Count 60 K/uL Mean Platelet Volume 9.7 fL Neutrophils (%) (Auto) 67.8 % Lymphocytes (%) (Auto) 16.1 % Monocytes (%) (Auto) 14.9 % Eosinophils (%) (Auto) 0.5 % Basophils (%) (Auto) 0.0 % Neutrophils # (Auto) 2.86 K/uL Lymphocytes # (Auto) 0.68 K/uL Monocytes # (Auto) 0.63 K/uL Eosinophils # (Auto) 0.02 K/uL Basophils # (Auto) 0.00 K/uL RDW Standard Deviation 47.4 fL RDW Coefficient of Variation 17.1 % Immature Granulocyte % (Auto) 0.7 % Immature Granulocyte # (Auto) 0.03 K/uL Sodium Level 138 mmol/L Potassium Level 4.1 mmol/L Chloride Level 105 mmol/L Carbon Dioxide Level 28 mmol/L Anion Gap 5.0 mmol/L Blood Urea Nitrogen 35 mg/dl Creatinine 0.84 mg/dl Est Creatinine Clear Calc Drug Dose 68.2 ml/min Estimated GFR () 85.1 Estimated GFR (Non- 73.4 BUN/Creatinine Ratio 41.4 Random Glucose 63 mg/dl Calcium Level 8.2 mg/dl Total Bilirubin 2.8 mg/dl Direct Bilirubin 2.2 mg/dl Aspartate Amino Transf (AST/SGOT) 79 U/L Alanine Aminotransferase (ALT/SGPT) 29 U/L Alkaline Phosphatase 124 U/L Total Protein 5.3 gm/dl Albumin 1.6 gm/dl Globulin 3.7 gm/dl Albumin/Globulin Ratio 0.4 Test 07/14/17 08:56 07/14/17 10:09 Bedside Glucose 69 mg/dl Prothrombin Time 15.7 SECONDS Prothromb Time International Ratio 1.4 Activated Partial Thromboplast Time 34.3 SECONDS Partial Thromboplastin Ratio 1.3 Impression Patient is a 62 year old female with Hep C cirrhosis now seen for acute anemia, occult positive stool in the setting of fall and hip replacement. Plan 1. Will consider blood transfusion if hemoglobin decreases lower than 8.0. 2. Careful monitoring of outputs for any gross GI bleeding 3. At this point would defer endoscopy because she has no history of esophageal varices she denies recent NSAID use. 4. Consider empiric treatment of a gastric bleed with by mouth twice a day PPI. 5. We'll continue to follow will consider endoscopy if gross bleeding or further drop in hemoglobin hematocrit. I have personally seen and examined the patient with ALEENA Conroy. Her note reflects my exam and findings. I agree with her impression and plan. Most likely anemia from ortho procedure. If the anemia was from a luminal source she would have clots and melena not just heme + stool Sp Hernandez M.D.
--- NOTE | 2017-07-14 11:53 | Family Medicine Progress Note ---
Progress Note Date of Service Jul 14, 2017. Subjective Pt evaluation today including: conversation w/ patient, physical exam, chart review, lab review Pain: reports L hip pain PO Intake: tolerating Voiding: no voiding problems This AM pt is alert and oriented to person and place but not time, following instructions and complaint with exam. She reports L hip pain. Otherwise denies cp, sob, abd pn, n/v. Constitutional: No fever Respiratory: No shortness of breath Cardiovascular: No chest pain Abdomen: No pain, No nausea, No vomiting Musculoskeletal: + problem reported (L hip pain) Medications Current Inpatient Medications Medications (Trade) Dose Ordered Sig/Alyse Route Start Time Stop Time Status Last Admin Dose Admin Ondansetron HCl (Zofran Inj) 4 mg Q6H PRN IV 07/09/17 20:00 08/08/17 19:59 07/13/17 08:59 4 MG Morphine Sulfate (MoRPHine SULFATE INJ) 2 mg Q2H PRN IV 07/09/17 20:00 07/23/17 19:59 Future Hold Naloxone HCl (Narcan Inj) 0.1 mg PRN PRN IV 07/09/17 20:00 08/08/17 19:59 Senna/Docusate Sodium (Senokot S Tab) 2 tab HS PO 07/09/17 21:00 08/08/17 20:59 07/13/17 21:20 2 TAB Polyethylene (Miralax Powder Packet) 17 gm DAILY PRN PO 07/09/17 20:00 08/08/17 19:59 Bisacodyl (Dulcolax Supp) 10 mg DAILY PRN NE 07/09/17 20:00 08/08/17 19:59 Sodium Biphosphate/ Sodium Phosphate (Fleet Enema) 132 ml PRN PRN NE 07/09/17 20:00 Al Hydrox/Mg Hydrox/Simethicone (Maalox Max Susp) 15 ml Q4H PRN PO 07/09/17 20:00 08/08/17 19:59 Magnesium Hydroxide (Milk Of Magnesia Susp) 30 ml Q6H PRN PO 07/09/17 20:00 08/08/17 19:59 Glucose (Glucose 40% Gel) 15-30 GRAMS 15 GRAMS... UD PRN PO 07/09/17 20:00 08/08/17 19:59 07/14/17 08:22 15 GM Glucose (Glucose Chew Tab) 4-8 Tablets 4 Tabl... UD PRN PO 07/09/17 20:00 08/08/17 19:59 Dextrose (Dextrose 50% 50ML Syringe) 25-50ML OF 50% DW IV FOR... UD PRN IV 07/09/17 20:00 08/08/17 19:59 Glucagon (Glucagon Inj) 1 mg UD PRN SQ 07/09/17 20:00 08/08/17 19:59 Bisacodyl (Dulcolax Tab) 5 mg DAILY PRN PO 07/09/17 20:15 08/08/17 20:14 Calcium/Vitamin D (Caltrate Plus Tab) 1 tab TID PO 07/09/17 21:00 08/08/17 20:59 07/14/17 08:55 1 TAB Fluticasone Propionate (Flonase Nasal [place]) 2 sprays DAILY KODY 07/10/17 09:00 08/09/17 08:59 07/14/17 08:49 2 SPRAYS Furosemide (Lasix Tab) 20 mg DAILY PO 07/10/17 09:00 08/09/17 08:59 07/14/17 08:50 20 MG Gabapentin (Neurontin Cap) 100 mg BID PO 07/09/17 21:00 08/08/17 20:59 07/14/17 08:54 100 MG Hydrocortisone (Hydrocortisone 2.5% Crm) 1 appln DAILY EXT 07/10/17 09:00 08/09/17 08:59 07/14/17 08:55 1 APPLN Metoprolol Succinate (Toprol Xl Tab) 12.5 mg DAILY PO 07/10/17 09:00 08/09/17 08:59 07/14/17 08:53 12.5 MG Potassium Chloride (Klor-Con M10) 10 meq BID PO 07/09/17 21:00 08/08/17 20:59 Future Hold 07/11/17 21:37 10 MEQ Rifaximin (Xifaxan Tab) 550 mg BID PO 07/09/17 21:00 08/08/17 20:59 07/14/17 08:50 550 MG Venlafaxine HCl (effeXOR EXTENDED REL CAP) 150 mg DAILY PO 07/10/17 09:00 08/09/17 08:59 07/14/17 08:51 150 MG Pantoprazole Sodium (Protonix Tab) 40 mg BID PO 07/09/17 21:00 08/08/17 20:59 07/14/17 08:51 40 MG Levetiracetam (Keppra Tab) 1,000 mg BID PO 07/09/17 21:00 08/08/17 20:59 07/14/17 08:52 1,000 MG Spironolactone (Aldactone Tab) 50 mg DAILY PO 07/10/17 09:00 08/09/17 08:59 Future hold 07/14/17 08:56 50 MG Enoxaparin Sodium (Lovenox Inj) 40 mg DAILY@0600 SQ 07/11/17 06:00 08/10/17 05:59 Future Hold 07/13/17 05:47 40 MG Miscellaneous Information (Pharmacy Consult) 1 UD PRN N/A 07/10/17 19:45 08/09/17 19:44 Hydromorphone HCl (Dilaudid Inj) 0.25 mg Q20M PRN IV 07/10/17 19:45 07/24/17 19:44 Hydromorphone HCl (Dilaudid Inj) 0.5 mg Q20M PRN IV 07/10/17 19:45 07/24/17 19:44 Menthol (Nice Kirstin) 1 kirstin Q2H PRN PO 07/10/17 19:45 08/09/17 19:44 Polyethylene (Miralax Powder Packet) 17 gm Q6 PO 07/12/17 06:00 08/11/17 05:59 07/13/17 18:29 17 GM Insulin Aspart (novoLOG ASPART) SLIDING SCALE If C... ACHS SC 07/11/17 08:00 08/10/17 07:59 07/13/17 21:24 2 UNITS Miscellaneous Information (Consult Glycemic Management Pharmacy) 1 UD PRN N/A 07/11/17 13:41 08/10/17 13:40 Oxycodone HCl (Roxicodone Immediate Rel Tab) 2.5 mg Q4H PRN PO 07/13/17 20:00 07/23/17 19:59 07/13/17 22:11 2.5 MG Insulin Glargine (Lantus Solostar Pen) 35 units QPM SC 07/14/17 21:00 08/13/17 20:59 Objective Vital Signs Date Time Temp Pulse Resp B/P (MAP) Pulse Ox O2 Delivery O2 Flow Rate FiO2 07/14/17 07:30 94 Nasal Cannula 2.0 Humidified Oxygen 07/14/17 07:25 36.7 79 20 103/64 (77) 98 Nasal Cannula 4.0 Humidified Oxygen 07/14/17 01:15 Nasal Cannula 4.0 Humidified Oxygen 07/13/17 22:45 36.9 78 18 111/71 (84) 100 Nasal Cannula 4.0 Humidified Oxygen 07/13/17 17:00 Nasal Cannula 4.0 07/13/17 15:20 36.4 83 16 112/67 (82) 100 Nasal Cannula 4.0 07/13/17 12:10 36.5 80 14 110/62 (78) 100 Nasal Cannula 4.0 Physical Exam General Appearance: + moderate distress Eyes: normal inspection Respiratory/Chest: lungs clear, normal breath sounds, no respiratory distress Cardiovascular: regular rate, rhythm Abdomen: normal bowel sounds, soft, + tenderness (TTP in RUQ) Extremities: no pedal edema, + pertinent finding (L hip NTTP, no notable erythema or edema. Mild bleeding noted on dressing. Reports pain when legs moved ) 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iatric: + disoriented (alert and oriented x 2) Laboratory Results Last Resulted 07/14/17 07:05 Red Blood Count 3.49, Mean Corpuscular Volume 77.4, Mean Corpuscular Hemoglobin 25.8, Mean Corpuscular Hemoglobin Concent 33.3, Mean Platelet Volume 9.7, Neutrophils (%) (Auto) 67.8, Lymphocytes (%) (Auto) 16.1, Monocytes (%) (Auto) 14.9, Eosinophils (%) (Auto) 0.5, Basophils (%) (Auto) 0.0, Neutrophils # (Auto ) 2.86, Lymphocytes # (Auto) 0.68, Monocytes # (Auto) 0.63, Eosinophils # (Auto ) 0.02, Basophils # (Auto) 0.00 Last Resulted 07/14/17 07:05 Past 24 Hours Test 07/13/17 15:25 07/14/17 10:09 Range/Units Prothromb Time International Ratio 1.5 H 1.4 H 0.9-1.1 Prothrombin Time 16.6 H 15.7 H 9.0-12.0 SECONDS Assessment and Plan 62 year old with hx of cirrhosis, seizure Disorder and hepatitis C, admitted for mechanical fall and displaced left intertrochanteric hip fracture s/p ORIF on 07/10. Now with improved prolonged postop delirium 2/2 opioids. Altered Mental Status - Ammonia 14 - Chest x-ray wnl - UA nl - Oxycodone reduced to 2.5 mg IV Q4 - constipation a likely source resolved post lactulose Anemia -H&H downtrending 9 and 27 today from 11.3 and 32.3 (07/12) -Heme occult + -GI consulted rec: monitor outputs for GI bleeding, defer endoscopy as no hx of esophageal varices or recent NSAID use -Initiate PPI Bid -Transfuse if below 8 Hgb Thrombocytopenia - 60k - Appears chronic based on previous Plt Counts; like 2/2 Cirrhosis - Monitoring for active bleeding bleeding given decreasing plts, + Heme occult and downtrending H&H Cirrhosis/Portal HTN 2/2 Hep C and Previous EtOH - EGD 2013 did not reveal any varices - Continue Lasix - Continue Rifaximin - Restarted Spironolactone to prevent ascites - Ammonia level 14 (07/13) - Coags: INR 1.4, PT 15.7 - Meld score 14 - Continue routine outpatient follow up Left Intertrochanteric Hip Fracture - ORIF of left hip performed evening of 25Aug - Pain controlled with Tylenol, Dilaudid IV PRN - WBC 4.22 this AM - Ortho signed off, HSNV Osteoporosis -low Vit D: 21.7 - Phos 2.2 and Mag 1.9 -Outpatient follow up with Dr. Singh in [place]. Dexa recommended within 6 months Head Injury due to Fall - Non-contrast head CT negative for acute pathology Hyperkalemia - resolved -K was 4.1 today - back to baseline -Restarted spironolactone BERNIE - resolved -Cr improved to 0.84 today -Hyponatremia, hyperkalemia resolved Right Hilar Opacity - Unclear if infective vs nodule - Procalcitonin <.05 - CT non-contrast for further characterization is overall unremarkable COPD with acute hypoxemic respiratory failure - home inhalers - requiring 4 L NC Diabetes mellitus - Hold home medications - SC insulin with BG checks - BG 60s this AM, goal range between 120-160 appropriate given moderately stressed clinical state Seizure Disorder - Continue Keppra HTN - Continue Metoprolol Depression - Continue Effexor Hepatitis C - Not on treatment DVT Prophylaxis - SCD Knee, LIZET Hose - Lovenox 40mg hold for concerns of bleeding Code Status - Level I Full Code Disposition - Pending clinical improvement - OT and PT evaluations Resident Involvement: Resident Care Provided Care Provided: Adult Hospital Medicine Reviewed: Pt Seen/Exam by Me History Resident Physician Supervision Note: I interviewed and examined the patient. Discussed with Dr. Padron and agree with findings and plan as documented in the note. Any exceptions or clarifications are listed here: Pt drowsy but wakes up and answers questions. Still with ZAFAR, CT head last night negative. Pain in hip, taking oxycodone PO (not IV as stated above) Hgb fairly stable, no obvious bleeding, but plts decreased from previous Vitals reviewed Sleeping but wakes up easily and answers questions appropriately Pupils equally round and reactive to light, extraocular muscles intact, cranial nerves II through XII are grossly intact, positive tenderness to palpation over left posterior head, no obvious hematoma palpated Regular rate and rhythm, no murmurs gallops or rubs Lungs clear to auscultation bilaterally Abdomen positive bowel sounds soft nontender nondistended Extremities left hip with dressing clean dry and intact, minimal surrounding edema, calves are soft, 2 posterior cells pedis pulses bilaterally Skin no rashes 62-year-old female here with a mechanical fall after chasing after her dog in the front yard. With some prolonged postoperative course secondary to likely opioid induced delirium. CT head negative which ruled out intracranial hemorrhage. no signs of infection, UA is negative -Okay to restart Aldactone along with her Lasix to prevent ascites -Change oxycodone to 2.5 mg every 4 hours only to avoid opioid-induced delirium- d/w RN and will use sparingly -get Woodruff out tomorrow and get her mobilized, encouraged this with pt and RN Documented By: Sasha Toribio
[2017-07-14] MEDS: OXYCODONE HCL IR 5 MG TAB (IMMEDIATE RELEASE) PO PRN ×2 (14:20→23:46)
[2017-07-14 15:40] VITALS: BP 103/67; PULSE 91; TEMP 37; O2SAT 100
[2017-07-14] MEDS ORDERED: PANTOprazole SOD 40 MG TAB PO SCH (21:00)
[2017-07-14] MEDS ORDERED: INSULIN GLARGINE SOLOSTAR 100 UNITS/ML 3 ML PEN SC SCH (21:00)
[2017-07-14] MEDS: DOCUSATE SODIUM/SENNA 50/8.6MG TAB PO SCH (21:34)
[2017-07-14 23:35] VITALS: O2SAT 99
[2017-07-15 00:03] VITALS: BP 101/56; PULSE 86; TEMP 36.6; O2SAT 98
[2017-07-15] MEDS: POLYETHYLENE (MIRALAX) 17 GM PACK PO SCH (00:10)
[2017-07-15] MEDS ORDERED: INSULIN ASPART 100 UNITS/ML 3 ML PEN SC SCH (02:00)
[2017-07-15] MEDS: GLUCOSE 40% GEL 15 GM TUBE PO PRN (02:19)
[2017-07-15] MEDS ORDERED: NURSING VERBAL MED ORDER ONE (06:00)
[2017-07-15 07:05] VITALS: BP 107/71; PULSE 80; TEMP 36.4; O2SAT 100
[2017-07-15] MEDS: CALCIUM 600MG + VIT D 400 IU TAB PO SCH ×3 (08:42→21:00)
[2017-07-15] MEDS: METOPROLOL SUCC 25MG EXT REL TAB PO SCH (08:42)
[2017-07-15] MEDS: PANTOprazole SOD 40 MG TAB PO SCH ×2 (08:42→21:00)
[2017-07-15] MEDS: VENLAFAXINE HCL XR 150 MG CAPXR PO SCH (08:42)
[2017-07-15] MEDS: RIFAXIMIN TAB 550 MG TAB PO SCH ×2 (08:43→21:00)
[2017-07-15] MEDS: GABAPENTIN 100 MG CAP PO SCH ×2 (08:43→21:00)
[2017-07-15] MEDS: SPIRONOLACTONE 25 MG TAB PO SCH (08:43)
[2017-07-15] MEDS: LEVETIRACETAM 500 MG TAB PO SCH ×2 (08:43→21:00)
[2017-07-15] MEDS: HYDROCORTISONE 2.5% CR 30 GM TUBE EXT SCH (08:44)
[2017-07-15] MEDS: FLUTICASONE PROPIONATE NA SPR 16 GM BTL NAE SCH (08:44)
[2017-07-15] MEDS: FUROSEMIDE 20 MG TAB PO SCH (08:44)
[2017-07-15 09:12] LABS: INR 1.3 (0.9-1.1); PROTHROMBIN TIME (PATIENT) 13.8 SECONDS (9.0-12.0)
[2017-07-15] MEDS: INSULIN ASPART 100 UNITS/ML 3 ML PEN SC SCH ×4 (09:16→21:00)
[2017-07-15 09:26] VITALS: Ht 172.7 cm; Wt 74.9 kg
[2017-07-15 09:34] LABS: BUN/CREATININE RATIO 30.5 (10-20); CREATININE 0.79 mg/dl (0.60-1.20); POTASSIUM 3.9 mmol/L (3.5-5.1)
[2017-07-15 09:37] LABS: ALB/GLOB RATIO 0.4 (0.9-2)
[2017-07-15 09:45] LABS: MEAN CORPUSCULAR HGB CONC 33.4 g/dl (32-36)
--- NOTE | 2017-07-15 10:17 | Pharmacy Progress Note ---
Glycemic Control Progress Note Date of Service Jul 15, 2017. Scope Glycemic Pharmacist consulted for glycemic control to write orders per [facility] inpatient glycemic control protocol. Objective Accuchecks BSG (last 24hrs): Test 07/14/17 12:10 07/14/17 17:02 07/14/17 20:35 07/15/17 02:10 Bedside Glucose 202 mg/dl (70-90) 149 mg/dl (70-90) 101 mg/dl (70-90) 57 mg/dl (70-90) Test 07/15/17 02:33 07/15/17 08:23 Bedside Glucose 104 mg/dl (70-90) Random Glucose 101 mg/dl (70-99) HbA1c: Test 07/12/17 06:48 Hemoglobin A1c 9.8 % (4.5-5.6) H Recent Pertinent Medications The patient is currently receiving: * Basal insulin: Lantus 35 units every 24 hours given at bedtime * Correctional Insulin: Novolog Correction per scale ACHS Goal Range: Low 110 mg/dL - High 140 mg/dL Correction Factor: 20 mg/dL/unit * Prandial insulin: Per carb ratio of 1 unit per 7 grams CHO consumed Outpatient Anti-Diabetic Meds Basal Insulin Bolus Insulin Assessment & Plan ASSESSMENT: * See progress note from 07/14 for more background info, in short: * Pt receiving SQ basal bolus insulin regimen for hyperglycemia secondary to baseline DM (outpatient regimen is SQ basal bolus), recent surgery, * Patient is currently receiving an average of ~49 units of insulin per day * 35 units of basal insulin * 14 units of prandial/correctional insulin * BSGs ranging 57 - 202 mg/dl over the past 24hrs * Changes needed to insulin regimen: * Pt with LOW BSG at 0200, BSG = 57mg/dl. Will continue to decrease and titrate based on BSG trends. Currently, basal insulin is being dose at less than half of outpatient dosing (outpatient dosing is 80units SQ HS). * Post-prandial BSGs are in range therefore no changes needed to CF/CR PLAN FOR INPATIENT GLYCEMIC CONTROL: * Basal insulin: Decrease dosing * Lantus 30 units SQ daily. Will work dosing to QAM for better compliance as an outpatient. Pt misses a few doses per week because it is being dosed HS when caregivers are not available. Likely, patient takes Toujeo 80 units SQ HS 3-4 times/week which is why the dose is much higher than the daily dosing needed in house. * Bolus insulin * NovoLog per scale ACHS or Q6hrs while NPO * Goal Range: Low 110 mg/dL - High 140 mg/dL * Correction Factor: 20 mg/dL/unit * Nutritional / Prandial insulin per carb ratio of 1 unit per 7 grams CHO consumed * Please note that the plan above was derived based on current level of insulin resistance and hospital stress. These recommendations are appropriate for inpatient admission only. Plan of care upon discharge will need to be reassessed to avoid potential outpatient hypo/hyperglycemia. Thank you.
[2017-07-15 10:41] LABS: HEMATOCRIT 29.3 % (37-47); MEAN CELL VOLUME 77.5 fL (80-100); MEAN CORPUSCULAR HEMOGLOBIN 25.9 pg (25-34); PLATELET COUNT 44 K/uL (130-400); RED BLOOD COUNT 3.78 M/uL (4.2-5.4); WHITE BLOOD COUNT 3.66 K/uL (4.8-10.8)
--- NOTE | 2017-07-15 10:45 | Gastroenterology Progress Note ---
Progress Note Date of Service: Jul 15, 2017 Subjective Pt evaluation today including: conversation w/ patient, physical exam, chart review, lab review, review of studies, review of inpatient medication list Ms. Carlin is a 62 yr old female who fell, underwent hip fracture repair and experienced a drop in Hb from 14 to 9 with occult positive stool but no gross GI bleeding. She feels well, denies abdominal pain, is eating a regular diet. Apparently, she is refusing a blood draw today. No nausea/vomiting. Only one small smear of a BM yesterday - w/o mention of color, no other BMs since arrival. Review of Systems Constitutional: No fever Respiratory: No cough Cardiac: No chest pain Abdomen: + pain (c/o pain but actually points to the left groin as the area of pain), + GI bleeding (questionable), No nausea, No vomiting, No diarrhea Female : No dysuria Neuro: No memory loss Psych: No depression symptoms Endo: No fatigue Skin: No rash Medications Current Inpatient Medications Medications (Trade) Dose Ordered Sig/Alyse Route Start Time Stop Time Status Last Admin Dose Admin Ondansetron HCl (Zofran Inj) 4 mg Q6H PRN IV 07/09/17 20:00 08/08/17 19:59 07/13/17 08:59 4 MG Morphine Sulfate (MoRPHine SULFATE INJ) 2 mg Q2H PRN IV 07/09/17 20:00 07/23/17 19:59 Future Hold Naloxone HCl (Narcan Inj) 0.1 mg PRN PRN IV 07/09/17 20:00 08/08/17 19:59 Senna/Docusate Sodium (Senokot S Tab) 2 tab HS PO 07/09/17 21:00 08/08/17 20:59 07/14/17 21:34 2 TAB Polyethylene (Miralax Powder Packet) 17 gm DAILY PRN PO 07/09/17 20:00 08/08/17 19:59 Bisacodyl (Dulcolax Supp) 10 mg DAILY PRN IN 07/09/17 20:00 08/08/17 19:59 Sodium Biphosphate/ Sodium Phosphate (Fleet Enema) 132 ml PRN PRN IN 07/09/17 20:00 Al Hydrox/Mg Hydrox/Simethicone (Maalox Max Susp) 15 ml Q4H PRN PO 07/09/17 20:00 08/08/17 19:59 Magnesium Hydroxide (Milk Of Magnesia Susp) 30 ml Q6H PRN PO 07/09/17 20:00 08/08/17 19:59 Glucose (Glucose 40% Gel) 15-30 GRAMS 15 GRAMS... UD PRN PO 07/09/17 20:00 08/08/17 19:59 07/15/17 02:19 15 GM Glucose (Glucose Chew Tab) 4-8 Tablets 4 Tabl... UD PRN PO 07/09/17 20:00 08/08/17 19:59 Dextrose (Dextrose 50% 50ML Syringe) 25-50ML OF 50% DW IV FOR... UD PRN IV 07/09/17 20:00 08/08/17 19:59 Glucagon (Glucagon Inj) 1 mg UD PRN SQ 07/09/17 20:00 08/08/17 19:59 Bisacodyl (Dulcolax Tab) 5 mg DAILY PRN PO 07/09/17 20:15 08/08/17 20:14 Calcium/Vitamin D (Caltrate Plus Tab) 1 tab TID PO 07/09/17 21:00 08/08/17 20:59 07/15/17 08:42 1 TAB Fluticasone Propionate (Flonase Nasal [place]) 2 sprays DAILY KODY 07/10/17 09:00 08/09/17 08:59 07/15/17 08:44 2 SPRAYS Furosemide (Lasix Tab) 20 mg DAILY PO 07/10/17 09:00 08/09/17 08:59 07/15/17 08:44 20 MG Gabapentin (Neurontin Cap) 100 mg BID PO 07/09/17 21:00 08/08/17 20:59 07/15/17 08:43 100 MG Hydrocortisone (Hydrocortisone 2.5% Crm) 1 appln DAILY EXT 07/10/17 09:00 08/09/17 08:59 07/14/17 08:55 1 APPLN Metoprolol Succinate (Toprol Xl Tab) 12.5 mg DAILY PO 07/10/17 09:00 08/09/17 08:59 07/15/17 08:42 12.5 MG Potassium Chloride (Klor-Con M10) 10 meq BID PO 07/09/17 21:00 08/08/17 20:59 Future Hold 07/11/17 21:37 10 MEQ Rifaximin (Xifaxan Tab) 550 mg BID PO 07/09/17 21:00 08/08/17 20:59 07/15/17 08:43 550 MG Venlafaxine HCl (effeXOR EXTENDED REL CAP) 150 mg DAILY PO 07/10/17 09:00 08/09/17 08:59 07/15/17 08:42 150 MG Pantoprazole Sodium (Protonix Tab) 40 mg BID PO 07/09/17 21:00 08/08/17 20:59 07/15/17 08:42 40 MG Levetiracetam (Keppra Tab) 1,000 mg BID PO 07/09/17 21:00 08/08/17 20:59 07/15/17 08:43 1,000 MG Spironolactone (Aldactone Tab) 50 mg DAILY PO 07/10/17 09:00 08/09/17 08:59 Future hold 07/15/17 08:43 50 MG Enoxaparin Sodium (Lovenox Inj) 40 mg DAILY@0600 SQ 07/11/17 06:00 08/10/17 05:59 Future Hold 07/13/17 05:47 40 MG Miscellaneous Information (Pharmacy Consult) 1 [facility] PRN N/A 07/10/17 19:45 08/09/17 19:44 Hydromorphone HCl (Dilaudid Inj) 0.25 mg Q20M PRN IV 07/10/17 19:45 07/24/17 19:44 Hydromorphone HCl (Dilaudid Inj) 0.5 mg Q20M PRN IV 07/10/17 19:45 07/24/17 19:44 Menthol (Nice Kirstin) 1 kirstin Q2H PRN PO 07/10/17 19:45 08/09/17 19:44 Insulin Aspart (novoLOG ASPART) SLIDING SCALE If C... ACHS SC 07/11/17 08:00 08/10/17 07:59 07/15/17 09:16 8 UNITS Miscellaneous Information (Consult Glycemic Management Pharmacy) 1 [facility] PRN N/A 07/11/17 13:41 08/10/17 13:40 Oxycodone HCl (Roxicodone Immediate Rel Tab) 2.5 mg Q4H PRN PO 07/13/17 20:00 07/23/17 19:59 07/14/17 23:46 2.5 MG Insulin Glargine (Lantus Solostar Pen) 30 units QAM SC 07/15/17 18:00 08/14/17 17:59 Objective Vital Signs Date Time Temp Pulse Resp B/P (MAP) Pulse Ox O2 Delivery O2 Flow Rate FiO2 07/15/17 07:55 Nasal Cannula 2.0 Humidified Oxygen 07/15/17 07:05 36.4 80 20 107/71 (83) 100 Nasal Cannula 2.0 Humidified Oxygen 07/15/17 00:03 36.6 86 16 101/56 (71) 98 Nasal Cannula 2.0 Humidified Oxygen 07/14/17 23:35 99 Nasal Cannula 2.0 07/14/17 15:40 37.0 91 18 103/67 (79) 100 Nasal Cannula 2.0 07/14/17 15:30 Nasal Cannula 2.0 Physical Exam General Appearance: no apparent distress Neck: no JVD Respiratory/Chest: lungs clear, + decreased breath sounds (at bases, few crackles in the bases) Cardiovascular: regular rate, rhythm, no murmur Abdomen: non tender (except in the extreme LLQ, moderate discomfort there), soft Extremities: no pedal edema 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: alert, normal mood/affect, oriented x 3 Skin: no jaundice Laboratory Results Last 24 Hours Test 07/14/17 12:10 07/14/17 17:02 07/14/17 20:35 07/15/17 01:56 Bedside Glucose 202 mg/dl 149 mg/dl 101 mg/dl 54 mg/dl Test 07/15/17 02:10 07/15/17 02:33 07/15/17 08:23 Bedside Glucose 57 mg/dl 104 mg/dl Mean Corpuscular Hemoglobin Concent 33.4 g/dl Prothrombin Time 13.8 SECONDS Prothromb Time International Ratio 1.3 Sodium Level 135 mmol/L Potassium Level 3.9 mmol/L Chloride Level 102 mmol/L Carbon Dioxide Level 27 mmol/L Anion Gap 6.0 mmol/L Blood Urea Nitrogen 24 mg/dl Creatinine 0.79 mg/dl Est Creatinine Clear Calc Drug Dose 72.6 ml/min Estimated GFR () 91.7 Estimated GFR (Non- 79.1 BUN/Creatinine Ratio 30.5 Random Glucose 101 mg/dl Calcium Level 8.0 mg/dl Total Bilirubin 3.0 mg/dl Direct Bilirubin 2.1 mg/dl Aspartate Amino Transf (AST/SGOT) 71 U/L Alanine Aminotransferase (ALT/SGPT) 30 U/L Alkaline Phosphatase 163 U/L Total Protein 5.7 gm/dl Albumin 1.7 gm/dl Globulin 4.0 gm/dl Albumin/Globulin Ratio 0.4 Assessment and Plan Ms. Carlin is a 62 yr old female who experienced a drop in Hb from 14 to 9.0 during hospitalization for surgical repair of hip fracture. Plan: Please continue to watch/document outputs carefully, if gross GI bleeding, then will consider EGD and if no cause of blood loss on upper then colonoscopy. Would also consider endoscopy if Hb further drops though pt refusing blood draws at this point. However, at this time, w/o gross bleeding or pain would defer endoscopy. I have personally seen and examined the patient with ALEENA Conroy. Her note reflects my exam and findings. I agree with her impression and plan. No signs of active GI bleeding. Sp Hernandez M.D.
[2017-07-15 10:57] VITALS: PULSE 80; O2SAT 97
[2017-07-15] MEDS: OXYCODONE HCL IR 5 MG TAB (IMMEDIATE RELEASE) PO PRN (11:04)
[2017-07-15] MEDS ORDERED: LACTULOSE SYRUP 30 GM/45 ML UDP PO ONE (11:44)
[2017-07-15 15:21] VITALS: BP 107/67; PULSE 87; TEMP 36.8; O2SAT 99
--- NOTE | 2017-07-15 16:09 | Oncology Consultation ---
Oncology/Heme Consultation Date of Consultation: Jul 15, 2017. Attending Physician: Sasha Toribio MD Reason for Consultation: Presumably consult is for thrombocytopenia History of Present Illness is a 62-year-old female that was admitted on July 09 after sustaining a fall in a diagnosis of a left femur fracture. Surgery repair occurred on July 10. We are asked to see her I believe because of cytopenias. 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 She states that her liver problems occurred secondary to hepatitis C. She denies significant alcohol usage. The chart reflects that she has had some difficulty with mentation. Past Medical/Surgical History Medical Problems: (1) Acute exacerbation of chronic low back pain Status: Acute (2) Anxiety Status: Acute (3) Back pain Status: Acute (4) Chronic abdominal pain Status: Acute (5) Chronic diarrhea Status: Acute (6) Complaints of total body pain Status: Acute (7) Contusion of multiple sites Status: Acute (8) Elevated bilirubin Status: Acute (9) Episodic overuse of medication Status: Acute (10) Facial pain Status: Acute (11) Fatigue Status: Acute (12) Hallucinations Status: Acute (13) Headache Status: Acute (14) Hyperglycemia Status: Acute (15) Hyperglycemia Status: Acute (16) Migraine Status: Acute (17) Migraine Status: Acute (18) Migraine Status: Acute (19) Migraine Status: Acute (20) Migraine Status: Acute (21) Migraine Status: Acute (22) Migraine Status: Acute (23) Opioid withdrawal Status: Acute (24) Paranoia Status: Acute (25) Pyelonephritis Status: Acute (26) Renal colic on left side Status: Acute (27) Skin tear Status: Acute (28) Thrombocytopenia Status: Acute (29) Vomiting Status: Acute Family History Adopted Social History Smoking Status: Current Every Day Smoker Smokeless Tobacco Use: No Alcohol Use: none Drug Use: none Marital Status: Housing Status: lives with friends Occupation Status: disabled Allergies Coded Allergies: Coconut (Verified Allergy, Unknown, ANAPHYLAXIS, 05/11/17) Modafinil (Verified Adverse Reaction, Severe, MAKES HYPER, 05/11/17) Sulfamethoxazole (Verified Adverse Reaction, Intermediate, PT STATES NOT GOOD FOR LIVER, 05/11/17) PT STATES (NOT GOOD FOR LIVER) Zolpidem (Verified Adverse Reaction, Intermediate, LIVER PROBLEMS, 05/11/17 ) Morphine (Verified Adverse Reaction, Mild, hallucinations, 05/11/17) Home Medications Scheduled Calcium Carbonate-Vitamin D W/ (Caltrate 600 Plus), 1 TABLET PO TID Cranberry (Vaccinium Macrocarp (Cranberry), 500 MG PO DAILY Fluticasone Propionate (Fluticasone Propionate), 2 SPRAYS KODY DAILY Furosemide (Furosemide), 20 MG PO DAILY Gabapentin (Gabapentin), 100 MG PO BID Hydrocortisone (Hydrocortisone), 1 APPLN TOP PRN UD Insulin Aspart (Novolog Flexpen), 12 UT SC AC Insulin Glargine (Toujeo Solostar), 80 UNITS SQ HS Lansoprazole (Prevacid), 30 MG PO BID Levetiracetam (Levetiracetam), 1,000 MG PO BID Metoprolol Succinate (Metoprolol Succinate ER), 12.5 MG PO DAILY Potassium Chloride (Micro-K Ext Rel), 10 MEQ PO BID Rifaximin (Xifaxan), 550 MG PO BID Spironolactone (Aldactone), 50 MG PO DAILY Venlafaxine Hcl (Effexor Extended Rel), 150 MG PO DAILY Scheduled PRN Bisacodyl (Bisacodyl), 5 MG PO UD PRN for constipation Oxycodone Immediate Rel Tab (Roxicodone Ir), 10 MG PO TID PRN for Severe Pain Current Inpatient Medications Current Inpatient Medications Medications (Trade) Dose Ordered Sig/Alyse Route Start Time Stop Time Status Last Admin Dose Admin Ondansetron HCl (Zofran Inj) 4 mg Q6H PRN IV 07/09/17 20:00 08/08/17 19:59 07/13/17 08:59 4 MG Morphine Sulfate (MoRPHine SULFATE INJ) 2 mg Q2H PRN IV 07/09/17 20:00 07/23/17 19:59 Future Hold Naloxone HCl (Narcan Inj) 0.1 mg PRN PRN IV 07/09/17 20:00 08/08/17 19:59 Senna/Docusate Sodium (Senokot S Tab) 2 tab HS PO 07/09/17 21:00 08/08/17 20:59 07/14/17 21:34 2 TAB Polyethylene (Miralax Powder Packet) 17 gm DAILY PRN PO 07/09/17 20:00 08/08/17 19:59 Bisacodyl (Dulcolax Supp) 10 mg DAILY PRN [place] 07/09/17 20:00 08/08/17 19:59 Sodium Biphosphate/ Sodium Phosphate (Fleet Enema) 132 ml PRN PRN AK 07/09/17 20:00 Al Hydrox/Mg Hydrox/Simethicone (Maalox Max Susp) 15 ml Q4H PRN PO 07/09/17 20:00 08/08/17 19:59 Magnesium Hydroxide (Milk Of Magnesia Susp) 30 ml Q6H PRN PO 07/09/17 20:00 08/08/17 19:59 Glucose (Glucose 40% Gel) 15-30 GRAMS 15 GRAMS... UD PRN PO 07/09/17 20:00 08/08/17 19:59 07/15/17 02:19 15 GM Glucose (Glucose Chew Tab) 4-8 Tablets 4 Tabl... UD PRN PO 07/09/17 20:00 08/08/17 19:59 Dextrose (Dextrose 50% 50ML Syringe) 25-50ML OF 50% DW IV FOR... UD PRN IV 07/09/17 20:00 08/08/17 19:59 Glucagon (Glucagon Inj) 1 mg UD PRN SQ 07/09/17 20:00 08/08/17 19:59 Bisacodyl (Dulcolax Tab) 5 mg DAILY PRN PO 07/09/17 20:15 08/08/17 20:14 Calcium/Vitamin D (Caltrate Plus Tab) 1 tab TID PO 07/09/17 21:00 08/08/17 20:59 07/15/17 13:10 1 TAB Fluticasone Propionate (Flonase Nasal [place]) 2 sprays DAILY KODY 07/10/17 09:00 08/09/17 08:59 07/15/17 08:44 2 SPRAYS Furosemide (Lasix Tab) 20 mg DAILY PO 07/10/17 09:00 08/09/17 08:59 07/15/17 08:44 20 MG Gabapentin (Neurontin Cap) 100 mg BID PO 07/09/17 21:00 08/08/17 20:59 07/15/17 08:43 100 MG Hydrocortisone (Hydrocortisone 2.5% Crm) 1 appln DAILY EXT 07/10/17 09:00 08/09/17 08:59 07/14/17 08:55 1 APPLN Metoprolol Succinate (Toprol Xl Tab) 12.5 mg DAILY PO 07/10/17 09:00 08/09/17 08:59 07/15/17 08:42 12.5 MG Potassium Chloride (Klor-Con M10) 10 meq BID PO 07/09/17 21:00 08/08/17 20:59 Future Hold 07/11/17 21:37 10 MEQ Rifaximin (Xifaxan Tab) 550 mg BID PO 07/09/17 21:00 08/08/17 20:59 07/15/17 08:43 550 MG Venlafaxine HCl (effeXOR EXTENDED REL CAP) 150 mg DAILY PO 07/10/17 09:00 08/09/17 08:59 07/15/17 08:42 150 MG Pantoprazole Sodium (Protonix Tab) 40 mg BID PO 07/09/17 21:00 08/08/17 20:59 07/15/17 08:42 40 MG Levetiracetam (Keppra Tab) 1,000 mg BID PO 07/09/17 21:00 08/08/17 20:59 07/15/17 08:43 1,000 MG Spironolactone (Aldactone Tab) 50 mg DAILY PO 07/10/17 09:00 08/09/17 08:59 Future hold 07/15/17 08:43 50 MG Enoxaparin Sodium (Lovenox Inj) 40 mg DAILY@0600 SQ 07/11/17 06:00 08/10/17 05:59 Future Hold 07/13/17 05:47 40 MG Miscellaneous Information (Pharmacy Consult) 1 ea UD PRN N/A 07/10/17 19:45 08/09/17 19:44 Menthol (Nice Kirstin) 1 kirstin Q2H PRN PO 07/10/17 19:45 08/09/17 19:44 Insulin Aspart (novoLOG ASPART) SLIDING SCALE If C... ACHS SC 07/11/17 08:00 08/10/17 07:59 07/15/17 13:15 7 UNITS Miscellaneous Information (Consult Glycemic Management Pharmacy) 1 ea UD PRN N/A 07/11/17 13:41 08/10/17 13:40 Insulin Glargine (Lantus Solostar Pen) 30 units QAM SC 07/15/17 18:00 08/14/17 17:59 Lactulose (Chronulac Syrup) 30 gm DAILY PO 07/16/17 09:00 08/15/17 08:59 Acetaminophen (Tylenol Tab) 325 mg Q4H PRN PO 07/15/17 15:30 08/14/17 15:29 Review of Systems Constitutional: Negative for night sweats, or fever. She complains of pain involving the left leg at the site of the surgery Eyes: Negative for event change of vision ENT: Negative for epistaxis, nasal discharge, sore throat, or deafness Cardiovascular: Negative for chest pain, palpitations, dizziness, diaphoresis Respiratory: Negative for new shortness of breath,hemoptysis, or purulent cough Gastrointestinal: Negative for diarrhea, hematemesis, melena, nausea, vomiting , or dyspepsia Integumentary (skin): Negative for rash or jaundice discoloration Genitourinary: Negative for urinary frequency, hematuria, or dysuria Neurological: Negative for weakness, seizure activity, headache, or dizziness Lymphatic/Hematologic: Negative for petechiae, bleeding or new adenopathy Musculoskeletal: Pain at the site of the surgery concerning the left leg Allergic/Immunologic: Negative for unusual rash or pruritis. Physical Exam Date Time Temp Pulse Resp B/P (MAP) Pulse Ox O2 Delivery O2 Flow Rate FiO2 07/15/17 15:21 36.8 87 18 107/67 (80) 99 Nasal Cannula 2.0 Humidified Oxygen 07/15/17 10:57 80 97 07/15/17 07:55 Nasal Cannula 2.0 Humidified Oxygen 07/15/17 07:05 36.4 80 20 107/71 (83) 100 Nasal Cannula 2.0 Humidified Oxygen 07/15/17 00:03 36.6 86 16 101/56 (71) 98 Nasal Cannula 2.0 Humidified Oxygen 07/14/17 23:35 99 Nasal Cannula 2.0 Constitutional: vitals are stable. Her response to questions is quite slow. She seems to be oriented 2-3 Eyes: Eyes are PREETHI EOMI without conjuctival erythema or icterus. ENT: External examination was negative for masses. Neck: Negative for masses or palpable thyromegaly Respiratory: Lung sounds were generally clear bilaterally Cardiovascular: Heart was RRR without significant murmur, gallops aoe rubs Gastrointestinal: No palpable hepatic or splenomegaly. The abdomen was soft with normal bowel sounds. Lymphatic system: there was no palpable peripheral lymphadenopathy Musculoskeletal System: The musculoskeletal system seemed concordant with age. Skin: The skin was negative for jaundice. Neurologic exam: The exam was negative for any focal findings. Deep tendon reflexes were equal and symmetrical. Psychiatric exam: Was essentially negative with normal mood and effect. Breast exam: Not done Extremities patient is status post left ORIF. No significant edema or erythema distally Laboratory Results Last 24 Hours Test 07/14/17 17:02 07/14/17 20:35 07/15/17 01:56 07/15/17 02:10 Bedside Glucose 149 mg/dl 101 mg/dl 54 mg/dl 57 mg/dl Test 07/15/17 02:33 07/15/17 08:23 Bedside Glucose 104 mg/dl White Blood Count 3.66 K/uL Red Blood Count 3.78 M/uL Hemoglobin 9.8 g/dL Hematocrit 29.3 % Mean Corpuscular Volume 77.5 fL Mean Corpuscular Hemoglobin 25.9 pg Mean Corpuscular Hemoglobin Concent 33.4 g/dl RDW Standard Deviation 48.9 fL RDW Coefficient of Variation 17.8 % Platelet Count 44 K/uL Prothrombin Time 13.8 SECONDS Prothromb Time International Ratio 1.3 Sodium Level 135 mmol/L Potassium Level 3.9 mmol/L Chloride Level 102 mmol/L Carbon Dioxide Level 27 mmol/L Anion Gap 6.0 mmol/L Blood Urea Nitrogen 24 mg/dl Creatinine 0.79 mg/dl Est Creatinine Clear Calc Drug Dose 72.6 ml/min Estimated GFR () 91.7 Estimated GFR (Non- 79.1 BUN/Creatinine Ratio 30.5 Random Glucose 101 mg/dl Calcium Level 8.0 mg/dl Total Bilirubin 3.0 mg/dl Direct Bilirubin 2.1 mg/dl Aspartate Amino Transf (AST/SGOT) 71 U/L Alanine Aminotransferase (ALT/SGPT) 30 U/L Alkaline Phosphatase 163 U/L Total Protein 5.7 gm/dl Albumin 1.7 gm/dl Globulin 4.0 gm/dl Albumin/Globulin Ratio 0.4 Assessment & Plan 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 Thrombocytopenia is of long duration. Today's count is 44,000. There is no overt bleeding. Pro times are just mildly gaped. No hematologic intervention necessary. Would monitor CBC daily. If bleeding occurs - the only thing they can be done is a platelet transfusion. A fibrinogen level should also be checked and we will order that.
[2017-07-15] MEDS ORDERED: INSULIN GLARGINE SOLOSTAR 100 UNITS/ML 3 ML PEN SC SCH ×2 (18:00→21:00)
--- NOTE | 2017-07-15 18:02 | Family Medicine Progress Note ---
Progress Note Date of Service Jul 15, 2017. Subjective Pt evaluation today including: conversation w/ patient, physical exam, chart review, lab review Pain: reports hip/leg pain and headache this AM PO Intake: tolerating Voiding: joel catheter in place Reports headache and hip/leg pain this morning. Continues to exhibit AMS signs: Alert and oriented to person and place but not time. Reported being on oxygen at home while sleeping and having diabetes later in life. Constitutional: No fever Respiratory: No shortness of breath Cardiovascular: No chest pain Abdomen: + pain, No nausea, No vomiting Musculoskeletal: + joint pain Female : No dysuria Neurologic: + problem reported (Headache) Medications Current Inpatient Medications Medications (Trade) Dose Ordered Sig/Alyse Route Start Time Stop Time Status Last Admin Dose Admin Ondansetron HCl (Zofran Inj) 4 mg Q6H PRN IV 07/09/17 20:00 08/08/17 19:59 07/13/17 08:59 4 MG Morphine Sulfate (MoRPHine SULFATE INJ) 2 mg Q2H PRN IV 07/09/17 20:00 07/23/17 19:59 Future Hold Naloxone HCl (Narcan Inj) 0.1 mg PRN PRN IV 07/09/17 20:00 08/08/17 19:59 Senna/Docusate Sodium (Senokot S Tab) 2 tab HS PO 07/09/17 21:00 08/08/17 20:59 07/14/17 21:34 2 TAB Polyethylene (Miralax Powder Packet) 17 gm DAILY PRN PO 07/09/17 20:00 08/08/17 19:59 Bisacodyl (Dulcolax Supp) 10 mg DAILY PRN PA 07/09/17 20:00 08/08/17 19:59 Sodium Biphosphate/ Sodium Phosphate (Fleet Enema) 132 ml PRN PRN PA 07/09/17 20:00 Al Hydrox/Mg Hydrox/Simethicone (Maalox Max Susp) 15 ml Q4H PRN PO 07/09/17 20:00 08/08/17 19:59 Magnesium Hydroxide (Milk Of Magnesia Susp) 30 ml Q6H PRN PO 07/09/17 20:00 08/08/17 19:59 Glucose (Glucose 40% Gel) 15-30 GRAMS 15 GRAMS... UD PRN PO 07/09/17 20:00 08/08/17 19:59 07/15/17 02:19 15 GM Glucose (Glucose Chew Tab) 4-8 Tablets 4 Tabl... UD PRN PO 07/09/17 20:00 08/08/17 19:59 Dextrose (Dextrose 50% 50ML Syringe) 25-50ML OF 50% DW IV FOR... UD PRN IV 07/09/17 20:00 08/08/17 19:59 Glucagon (Glucagon Inj) 1 mg UD PRN SQ 07/09/17 20:00 08/08/17 19:59 Bisacodyl (Dulcolax Tab) 5 mg DAILY PRN PO 07/09/17 20:15 08/08/17 20:14 Calcium/Vitamin D (Caltrate Plus Tab) 1 tab TID PO 07/09/17 21:00 08/08/17 20:59 07/15/17 13:10 1 TAB Fluticasone Propionate (Flonase Nasal Datil) 2 sprays DAILY KODY 07/10/17 09:00 08/09/17 08:59 07/15/17 08:44 2 SPRAYS Furosemide (Lasix Tab) 20 mg DAILY PO 07/10/17 09:00 08/09/17 08:59 07/15/17 08:44 20 MG Gabapentin (Neurontin Cap) 100 mg BID PO 07/09/17 21:00 08/08/17 20:59 07/15/17 08:43 100 MG Hydrocortisone (Hydrocortisone 2.5% Crm) 1 appln DAILY EXT 07/10/17 09:00 08/09/17 08:59 07/14/17 08:55 1 APPLN Metoprolol Succinate (Toprol Xl Tab) 12.5 mg DAILY PO 07/10/17 09:00 08/09/17 08:59 07/15/17 08:42 12.5 MG Potassium Chloride (Klor-Con M10) 10 meq BID PO 07/09/17 21:00 08/08/17 20:59 Future Hold 07/11/17 21:37 10 MEQ Rifaximin (Xifaxan Tab) 550 mg BID PO 07/09/17 21:00 08/08/17 20:59 07/15/17 08:43 550 MG Venlafaxine HCl (effeXOR EXTENDED REL CAP) 150 mg DAILY PO 07/10/17 09:00 08/09/17 08:59 07/15/17 08:42 150 MG Pantoprazole Sodium (Protonix Tab) 40 mg BID PO 07/09/17 21:00 08/08/17 20:59 07/15/17 08:42 40 MG Levetiracetam (Keppra Tab) 1,000 mg BID PO 07/09/17 21:00 08/08/17 20:59 07/15/17 08:43 1,000 MG Spironolactone (Aldactone Tab) 50 mg DAILY PO 07/10/17 09:00 08/09/17 08:59 Future hold 07/15/17 08:43 50 MG Enoxaparin Sodium (Lovenox Inj) 40 mg DAILY@0600 SQ 07/11/17 06:00 08/10/17 05:59 Future Hold 07/13/17 05:47 40 MG Miscellaneous Information (Pharmacy Consult) 1 [facility] PRN N/A 07/10/17 19:45 08/09/17 19:44 Menthol (Nice Kirstin) 1 kirstin Q2H PRN PO 07/10/17 19:45 08/09/17 19:44 Insulin Aspart (novoLOG ASPART) SLIDING SCALE If C... ACHS OR 07/11/17 08:00 08/10/17 07:59 07/15/17 13:15 7 UNITS Miscellaneous Information (Consult Glycemic Management Pharmacy) 1 [facility] PRN N/A 07/11/17 13:41 08/10/17 13:40 Insulin Glargine (Lantus Solostar Pen) 30 units QAM OR 07/15/17 18:00 08/14/17 17:59 Lactulose (Chronulac Syrup) 30 gm DAILY PO 07/16/17 09:00 08/15/17 08:59 Acetaminophen (Tylenol Tab) 325 mg Q4H PRN PO 07/15/17 15:30 08/14/17 15:29 Objective Vital Signs Date Time Temp Pulse Resp B/P (MAP) Pulse Ox O2 Delivery O2 Flow Rate FiO2 07/15/17 15:21 36.8 87 18 107/67 (80) 99 Nasal Cannula 2.0 Humidified Oxygen 07/15/17 10:57 80 97 07/15/17 07:55 Nasal Cannula 2.0 Humidified Oxygen 07/15/17 07:05 36.4 80 20 107/71 (83) 100 Nasal Cannula 2.0 Humidified Oxygen 07/15/17 00:03 36.6 86 16 101/56 (71) 98 Nasal Cannula 2.0 Humidified Oxygen 07/14/17 23:35 99 Nasal Cannula 2.0 Physical Exam General Appearance: no apparent distress Eyes: normal inspection Respiratory/Chest: lungs clear, normal breath sounds, no respiratory distress Cardiovascular: regular rate, rhythm Abdomen: normal bowel sounds, + guarding, + tenderness (RUQ) Extremities: no pedal edema 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iatric: + pertinent finding (AMS alert and oriented X2) Laboratory Results 07/15/17 08:23 07/15/17 08:23 Test 07/15/17 02:33 07/15/17 08:23 07/15/17 16:10 Bedside Glucose 104 mg/dl (70-90) Red Blood Count 3.78 M/uL (4.2-5.4) Mean Corpuscular Volume 77.5 fL (80-100) Mean Corpuscular Hemoglobin 25.9 pg (25-34) Mean Corpuscular Hemoglobin Concent 33.4 g/dl (32-36) RDW Standard Deviation 48.9 fL (36.4-46.3) RDW Coefficient of Variation 17.8 % (11.5-14.5) Prothrombin Time 13.8 SECONDS (9.0-12.0) Prothromb Time International Ratio 1.3 (0.9-1.1) Anion Gap 6.0 mmol/L (3-11) Est Creatinine Clear Calc Drug Dose 72.6 ml/min Estimated GFR () 91.7 Estimated GFR (Non- 79.1 BUN/Creatinine Ratio 30.5 (10-20) Calcium Level 8.0 mg/dl (8.5-10.1) Total Bilirubin 3.0 mg/dl (0.2-1) Direct Bilirubin 2.1 mg/dl (0-0.2) Aspartate Amino Transf (AST/SGOT) 71 U/L (15-37) Alanine Aminotransferase (ALT/SGPT) 30 U/L (12-78) Alkaline Phosphatase 163 U/L (45-117) Total Protein 5.7 gm/dl (6.4-8.2) Albumin 1.7 gm/dl (3.4-5.0) Globulin 4.0 gm/dl (2.5-4.0) Albumin/Globulin Ratio 0.4 (0.9-2) Assessment and Plan 62 year old with hx of cirrhosis, seizure Disorder and hepatitis C, admitted for mechanical fall and displaced left intertrochanteric hip fracture s/p ORIF on 07/10. Now with persistent prolonged postop delirium 2/2 opioids. Altered Mental Status - Ammonia 14 - Chest x-ray wnl - UA nl and dced joel to reduce risk of infection - Oxycodone and Dilaudid dced - constipation a likely source - ordered daily lactulose PANCYTOPENIA: Anemia, Thrombocytopenia and Leukopenia -H&H continues to be low 9.8 and 29.3 (08/15) today -Heme occult + -GI consulted rec: monitor outputs for GI bleeding, defer endoscopy as no hx of esophageal varices or recent NSAID use -Continue PPI Bid -Transfuse if below 8 Hgb Thrombocytopenia - 44k today - Initially appeared chronic based on previous Plt Counts; like 2/2 Cirrhosis but concerning given dropping further along with thrombocytopenia and leukopenia - Monitoring for active bleeding bleeding given decreasing plts, + Heme occult and downtrending H&H Leukopenia - WBC continues to drop, today 3.66 -Heme/onc consult placed especially given hx of cirrhosis and Hep C Cirrhosis/Portal HTN 2/2 Hep C and Previous EtOH - EGD 2013 did not reveal any varices - Continue Lasix - Continue Rifaximin - Restarted Spironolactone to prevent ascites - Ammonia level 14 (07/13) - Coags improving: INR 1.3, PT 13.8 - Meld score 16 today - Continue routine outpatient follow up Left Intertrochanteric Hip Fracture - ORIF of left hip performed evening of 25Aug - Pain controlled with Tylenol only, Dilaudid IV and Oxycodone PRN Dced - WBC 3.66 this AM - Ortho signed off, HSNV Osteoporosis -low Vit D: 21.7 - Phos 2.2 and Mag 1.9 -Outpatient follow up with Dr. Singh in [place]. Dexa recommended within 6 months Head Injury due to Fall - Non-contrast head CT negative for acute pathology Hyperkalemia - resolved -K was 3.9 today - back to baseline -Restarted spironolactone BERNIE - resolved -Cr improved to 0.79 today -Hyponatremia, hyperkalemia resolved Right Hilar Opacity - Unclear if infective vs nodule - Procalcitonin <.05 - CT non-contrast for further characterization is overall unremarkable COPD with acute hypoxemic respiratory failure - home inhalers - requiring 4 L NC Diabetes mellitus type 2 with hypoglycemia - Hold home medications - SC insulin with BG checks: Lantus 30 units QAM and SC: goal 110-140 correction factor 20 and CHO ratio 1:7 - BG 101 this AM Seizure Disorder - Continue Keppra HTN - Continue Metoprolol Depression - Continue Effexor Hepatitis C - Not on treatment DVT Prophylaxis - SCD Knee, LIZET Hose - Lovenox 40mg hold for concerns of bleeding Code Status - Level I Full Code Disposition - Pending clinical improvement - OT and PT evaluations Resident Involvement: Resident Care Provided Care Provided: Adult [facility] Medicine Reviewed: Pt Seen/Exam by Me History Resident Physician Supervision Note: I interviewed and examined the patient. Discussed with Dr. Padron and agree with findings and plan as documented in the note. Any exceptions or clarifications are listed here: Patient mentating more clearly today, and is complaining about always been interrupted when she wants to sleep. She did get out of bed and do 3 short walks 4-5 feet each with physical therapy today, but overall she remains very unmotivated to rehabilitation. Still with relative constipation and platelets dropped today to 44,000. No obvious bleeding from any source Vitals reviewed Sleeping but wakes up easily and answers questions appropriately Regular rate and rhythm, no murmurs gallops or rubs Lungs clear to auscultation bilaterally Abdomen positive bowel sounds soft nontender nondistended Extremities left hip with dressing clean dry and intact, minimal surrounding edema, calves are soft, 2 posterior cells pedis pulses bilaterally, plantar and dorsiflexes both feet easily Skin no rashes 62-year-old female here with a mechanical fall after chasing after her dog in the front yard. With some prolonged postoperative course secondary to likely opioid induced delirium. CT head negative which ruled out intracranial hemorrhage. no signs of infection, UA is negative -Discontinue all opioids today and will only give acetaminophen at low doses given her liver disease as needed for pain-this should improve her mentation -Continue Aldactone along with her Lasix to prevent ascites -Discontinue Joel today and encouraged mobilization -Appreciate consultation hematology for worsening thrombocytopenia which is likely due to her cirrhosis however, I would appreciate their input as to whether and when to transfuse with platelets-we will watch for bleeding and follow CBC -She will need routine outpatient follow-up with GI for her cirrhosis -Hoping to discharge to [facility] tomorrow if platelet count improving Documented By: Sasha Toribio
[2017-07-15] MEDS: DOCUSATE SODIUM/SENNA 50/8.6MG TAB PO SCH (21:00)
[2017-07-15 22:54] VITALS: BP 101/66; PULSE 92; TEMP 36.9; O2SAT 97
[2017-07-16] MEDS: ACETAMINOPHEN 325 MG TAB PO PRN ×3 (00:39→12:33)
[2017-07-16 06:30] LABS: HEMATOCRIT 27.2 % (37-47); MEAN CELL VOLUME 78.2 fL (80-100); MEAN CORPUSCULAR HEMOGLOBIN 25.3 pg (25-34); MEAN CORPUSCULAR HGB CONC 32.4 g/dl (32-36); MEAN PLATELET VOLUME 10.3 fL (7.4-10.4); PLATELET COUNT 78 K/uL (130-400); RED BLOOD COUNT 3.48 M/uL (4.2-5.4); WHITE BLOOD COUNT 4.09 K/uL (4.8-10.8)
[2017-07-16 06:52] LABS: INR 1.2 (0.9-1.1); PROTHROMBIN TIME (PATIENT) 13.4 SECONDS (9.0-12.0)
[2017-07-16 07:02] LABS: BUN/CREATININE RATIO 23.5 (10-20); CREATININE 0.81 mg/dl (0.60-1.20); POTASSIUM 3.6 mmol/L (3.5-5.1)
[2017-07-16 07:04] LABS: ALB/GLOB RATIO 0.4 (0.9-2)
[2017-07-16 07:22] LABS: ANISOCYTOSIS PRESENT; COMPLETE YES; EOS % 1.7 %; GIANT PLATELETS 1+; IG% 0.7 %; LYMPH % 25.7 %; LYMPH ABS # 1.05 K/uL (1.2-3.4); MICROCYTOSIS PRESENT; MONO % 13.7 %; NEUT % 58.2 %; POLYCHROMASIA 1+
[2017-07-16 07:26] VITALS: BP 95/55; PULSE 91; TEMP 36.5; O2SAT 96
[2017-07-16] MEDS: CALCIUM 600MG + VIT D 400 IU TAB PO SCH ×2 (08:17→13:44)
[2017-07-16] MEDS: RIFAXIMIN TAB 550 MG TAB PO SCH (08:17)
[2017-07-16] MEDS: PANTOprazole SOD 40 MG TAB PO SCH (08:17)
[2017-07-16] MEDS: SPIRONOLACTONE 25 MG TAB PO SCH (08:17)
[2017-07-16] MEDS: LEVETIRACETAM 500 MG TAB PO SCH (08:18)
[2017-07-16] MEDS: VENLAFAXINE HCL XR 150 MG CAPXR PO SCH (08:18)
[2017-07-16] MEDS: GABAPENTIN 100 MG CAP PO SCH (08:18)
[2017-07-16] MEDS: METOPROLOL SUCC 25MG EXT REL TAB PO SCH (08:19)
[2017-07-16] MEDS: FLUTICASONE PROPIONATE NA SPR 16 GM BTL NAE SCH (08:19)
[2017-07-16] MEDS: HYDROCORTISONE 2.5% CR 30 GM TUBE EXT SCH (08:19)
[2017-07-16] MEDS ORDERED: LACTULOSE SYRUP 30 GM/45 ML UDP PO SCH (09:00)
[2017-07-16] MEDS: INSULIN ASPART 100 UNITS/ML 3 ML PEN SC SCH ×2 (09:26→12:31)
[2017-07-16] MEDS: FUROSEMIDE 20 MG TAB PO SCH (09:32)
--- NOTE | 2017-07-16 10:15 | Pharmacy Progress Note ---
Glycemic Control Progress Note Date of Service Jul 16, 2017. Scope Glycemic Pharmacist consulted for glycemic control to write orders per [facility] inpatient glycemic control protocol. Objective Accuchecks BSG (last 24hrs): Test 07/15/17 11:54 07/15/17 17:28 07/16/17 05:48 Bedside Glucose 200 mg/dl (70-90) 220 mg/dl (70-90) Random Glucose 140 mg/dl (70-99) HbA1c: Test 07/12/17 06:48 Hemoglobin A1c 9.8 % (4.5-5.6) H Recent Pertinent Medications The patient is currently receiving: * Basal insulin: Last dose of Lantus was 35 units 07/14 HS Lantus 30 units every 24 hours ( transitioning from HS to AM) ordered to start 07/15 but pt refused dose * Correctional Insulin: Novolog Correction per scale ACHS Goal Range: Low 110 mg/dL - High 140 mg/dL Correction Factor: 20 mg/dL/unit * Prandial insulin: Per carb ratio of 1 unit per 7 grams CHO consumed Outpatient Anti-Diabetic Meds Basal Insulin Bolus Insulin Assessment & Plan ASSESSMENT: * See progress note from 07/14 for more background info, in short: * Pt receiving SQ basal bolus insulin regimen for hyperglycemia secondary to baseline DM (outpatient regimen is SQ basal bolus) & recent surgery * Patient received an average of 45-50 units of insulin per day 07/12 -07/14. Due to pt refusing medications, she only received 15 units yesterday: * no basal insulin * 15 units of prandial/correctional insulin * BSGs ranging 104 - 220 mg/dl over the past 24hrs * Changes needed to insulin regimen: * Fasting BSG = 138 mg/dl. This is slightly elevated, however, an adequate value given the fact that she has not had any basal insulin since 07/14. Will further decrease Lantus. Currently, basal insulin is being dose at less than half of outpatient dosing (outpatient dosing is 80units SQ HS). Pt misses a few doses per week because it is being dosed HS when caregivers are not available. Likely, patient takes Toujeo 80 units SQ HS 3-4 times/week which is why the dose is much higher than the daily dosing needed in house. * Post-prandial BSGs are elevated - likely due to refused doses at dinner and HS. No changes at this time. PLAN FOR INPATIENT GLYCEMIC CONTROL: * Basal insulin: Decrease dosing * Lantus 25 units SQ daily. Continue to transition dosing to [facility] for better compliance as an outpatient. * Bolus insulin * NovoLog per scale ACHS or Q6hrs while NPO * Goal Range: Low 110 mg/dL - High 140 mg/dL * Correction Factor: 20 mg/dL/unit * Nutritional / Prandial insulin per carb ratio of 1 unit per 7 grams CHO consumed RECOMMENDATIONS FOR DISCHARGE: * Unable to provide exact doses at this time due to pt refusing insulin and continuing to titrate Lantus downward to avoid overnight hypoglycemia * Please note that the plan above was derived based on current level of insulin resistance and hospital stress. These recommendations are appropriate for inpatient admission only. Plan of care upon discharge will need to be reassessed to avoid potential outpatient hypo/hyperglycemia. Thank you.
[2017-07-16] MEDS ORDERED: INSDGIPEN SC (11:06)
[2017-07-16] MEDS ORDERED: LVNIS40 SQ (11:06)
[2017-07-16] MEDS ORDERED: ACET-1047 PO (11:06)
[2017-07-16] MEDS ORDERED: NVLGIPEN SC (11:06)
[2017-07-16] MEDS ORDERED: LCTL45 PO (11:06)
[2017-07-16] MEDS ORDERED: INSULIN GLARGINE SOLOSTAR 100 UNITS/ML 3 ML PEN SC SCH (12:00)
--- NOTE | 2017-07-16 12:41 | Discharge Instructions ---
Discharge Instructions Date of Service Jul 16, 2017. Admission Reason for Admission: Hip Fracture, Left Discharge Discharge Diagnosis / Problem: Left hip fracture postop Discharge Goals Goal(s): Decrease discomfort, Diagnostic testing, Therapeutic intervention Activity Recommendations Therapies: Physical Therapy (As per orthopedic Instructions), Occupational Therapy . Additional Information Patient informed of condition: Yes Advance Directives: No DNR: No Level of Care: Skilled Communicable Disease: No Prognosis: Stable Oxygen at (LPM): 2 LNC Joel Catheter: No Instructions / Follow-Up Instructions / Follow-Up 62 year old with history of cirrhosis, seizure disorder and hepatitis C, admitted for mechanical fall and displaced left intertrochanteric hip fracture s /p ORIF on 07/10. Now with improved postop metabolic encephalopathy likely secondary to postop opioids given altered mental status and liver disease. CT negative for intracranial bleeding, negative urine analysis and no other signs of infection. Concerns of pancytopenia, hematology/oncology consulted. According to heme/onc cytopenias secondary to hypersplenism and ongoing cirrhosis and thrombocytopenia is of long duration. Heme/onc also checked the fibrinogen level and recommended monitoring CBC and platelet transfusion if patient is bleeding. Patient was also seen by GI during the course of her stay given her anemia and positive heme occult test. GI recommended PPI BID and did not see the need for endoscopy during admission given her lack of recent NSAID use, and no history of esophageal varices. GI recommended monitoring outputs for bleeding and transfusion if her hemoglobin falls below 8. Lovenox was held for concerns of bleeding given positive heme occult, anemia and thrombocytopenia. Metabolic encephalopathy - likely from postop opioids given hx of cirrhosis - Ammonia 14 (07/13) - Chest x-ray wnl - UA nl and joel dced to reduce risk of infection - Oxycodone and Dilaudid dced - Lactulose to relieve constipation (now resolved) Recommendation: - Avoid opioids for pain management - Lactulose PRN to ensure having at least 1-2 bowel movements per day PANCYTOPENIA: secondary to hypersplenism/cirrhosis Anemia, Thrombocytopenia and Leukopenia -H&H continues to be low 8.8 and 27.2 (07/16) -Stool heme occult + -GI and Heme/Onc consulted (refer to assessment above) -Continue PPI Bid -Transfuse if below 8 Hgb Chronic Thrombocytopenia (improved) - 44k (07/15) to 78 (07/16) today - Heme/Onc/GI consulted (refer to assessment above) - Monitoring for active bleeding Leukopenia - WBC 4.09 (07/16) Recommendation: -Check CBC/CMP in 2-3 days post discharge - Follow up with GI on an outpatient basis for possible endoscopy/colonoscopy given anemia and positive stool heme occult finding. Cirrhosis/Portal HTN 2/2 Hep C and Previous EtOH - EGD 2013 did not reveal any varices - Ammonia level 14 (07/13) - Coags improving: INR 1.2, PT 13.4 (07/16) - Meld score 16 - Continue Lasix - Continue Rifaximin - Continue Spironolactone to prevent ascites - Continue routine outpatient follow up Recommendation: - Lactulose PRN to ensure having at least 1-2 bowel movements per day - Routine outpatient GI follow up for cirrhosis/Hep C Left Intertrochanteric Hip Fracture - ORIF of left hip performed evening of 07/10 - Pain controlled with Tylenol only. Note: Dilaudid IV and Oxycodone PRN Dced due to AMS - WBC 4.09 (07/16) - Ortho signed off Recommendation: - Follow up with orthopedics as recommended - Tylenol/Ibuprofen for pain as needed Osteoporosis - low Vit D: 21.7 - Phos 2.2 and Mag 1.9 Recommendation: -Outpatient follow up with Dr. Singh in [place]. Dexa recommended within 6 months COPD with acute on chronic respiratory failure - required 4 L NC initially and on discharge 2 L NC - Pt reported home oxygen use, 2 L NC Recommendation: - Albuterol PRN - Follow up with PCP or Bundle Packer for routine COPD care and PFT Diabetes mellitus type 2 with episodes of hypoglycemia - Held home medications - Lantus and Novolog SC insulin: Lantus 25 units QAM and SC: goal 110-140 correction factor 20 and CHO ratio 1:7 - BG 140 (07/16) Recommendation: - Lantus 25 units and Novolog SC - Follow up with PCP for routine care Seizure Disorder - Continue Keppra HTN - Continue Metoprolol Depression - Continue Effexor Hepatitis C - Not on treatment Head Injury due to Fall - Non-contrast head CT negative for acute pathology Right Hilar Opacity - Unclear if infective vs nodule - Procalcitonin <.05 - CT non-contrast for further characterization is overall unremarkable Recommendation: - Follow up with PCP as needed Hyperkalemia - resolved -K was 3.6 (07/16) BERNIE - resolved -Cr improved to 0.79 today -Hyponatremia, hyperkalemia resolved DVT Prophylaxis - SCD Knee, LIZET Yeh - Lovenox 40mg held Code Status - Level I Full Code Disposition - To [facility] Current Hospital Diet Patient's current hospital diet: Diabetes Type 2 Diet Discharge Diet Recommended Diet: Diabetes Type 2 Diet Procedures Procedures Performed: ORIF left intertrochanteric hip fracture with trochanteric Nail Dopler LLE neg for DVT CT head neg x [address] Chest xrays Hip and femur, tibia/fibula xrays Pending Studies Studies pending at discharge: no Physician Orders On Transfer Special Precautions: Hip precautions Dressing Changes: As per Ortho IV Therapy: None Vital Signs: Routine Weigh: Routine Additional Orders: Check CMP, CBC in 2-3 days Follow up with Orthopedist as per their instructions in 2 weeks Laboratory Results Last 24 Hours Test 07/15/17 17:28 07/16/17 05:48 07/16/17 08:09 07/16/17 11:36 Bedside Glucose 220 mg/dl 138 mg/dl 235 mg/dl White Blood Count 4.09 K/uL Red Blood Count 3.48 M/uL Hemoglobin 8.8 g/dL Hematocrit 27.2 % Mean Corpuscular Volume 78.2 fL Mean Corpuscular Hemoglobin 25.3 pg Mean Corpuscular Hemoglobin Concent 32.4 g/dl Platelet Count 78 K/uL Mean Platelet Volume 10.3 fL Neutrophils (%) (Auto) 58.2 % Lymphocytes (%) (Auto) 25.7 % Monocytes (%) (Auto) 13.7 % Eosinophils (%) (Auto) 1.7 % Basophils (%) (Auto) 0.0 % Neutrophils # (Auto) 2.38 K/uL Lymphocytes # (Auto) 1.05 K/uL Monocytes # (Auto) 0.56 K/uL Eosinophils # (Auto) 0.07 K/uL Basophils # (Auto) 0.00 K/uL RDW Standard Deviation 49.8 fL RDW Coefficient of Variation 18.0 % Immature Granulocyte % (Auto) 0.7 % Immature Granulocyte # (Auto) 0.03 K/uL Giant Platelets 1+ Polychromasia 1+ Anisocytosis PRESENT Microcytosis PRESENT Prothrombin Time 13.4 SECONDS Prothromb Time International Ratio 1.2 Fibrinogen 116 mg/dl Sodium Level 138 mmol/L Potassium Level 3.6 mmol/L Chloride Level 102 mmol/L Carbon Dioxide Level 30 mmol/L Anion Gap 6.0 mmol/L Blood Urea Nitrogen 19 mg/dl Creatinine 0.81 mg/dl Est Creatinine Clear Calc Drug Dose 70.8 ml/min Estimated GFR () 89.0 Estimated GFR (Non- 76.8 BUN/Creatinine Ratio 23.5 Random Glucose 140 mg/dl Calcium Level 8.0 mg/dl Total Bilirubin 3.2 mg/dl Direct Bilirubin 2.1 mg/dl Aspartate Amino Transf (AST/SGOT) 50 U/L Alanine Aminotransferase (ALT/SGPT) 26 U/L Alkaline Phosphatase 164 U/L Total Protein 5.4 gm/dl Albumin 1.6 gm/dl Globulin 3.7 gm/dl Albumin/Globulin Ratio 0.4 Hemoglobin A1c Test 07/12/17 06:48 Range/Units Estimated Average Glucose 235 mg/dl Hemoglobin A1c 9.8 H 4.5-5.6 % Medical Emergencies . Who to Call and When: Medical Emergencies: If at any time you feel your situation is an emergency, please call 911 immediately. . Non-Emergent Contact Non-Emergency issues call your: Primary Care Provider Call Non-Emergent contact if: you have a fever, your pain is not controlled, your pain is worsening, your pain is unusual for you, your pain is concerning you, wound has increased drainage, wound has increased redness, wound has increased pain, you have any medication questions . . "Provider Documentation" section prepared by Edgar Padron. . Core Measure Problem Core Measures: None
[2017-07-16 13:25] VITALS: BP 95/55; PULSE 91; TEMP 36.5; O2SAT 96
--- NOTE | 2017-07-16 14:00 | DIAGNOSTIC IMAGING REPORT ---
ULTRASOUND venous Doppler ultrasound left lower extremity CLINICAL HISTORY: Left leg pain COMPARISON STUDY: No previous studies for comparison. FINDINGS: Real-time and color flow Doppler imaging were performed. Flow was seen within the femoral, popliteal and calf veins with no intraluminal thrombus demonstrated. The saphenous vein is patent. IMPRESSION: No evidence of left lower extremity DVT. Electronically signed by: Patrick Rodriguez M.D. 07/16/2017 1:58 PM Dictated Date/Time: 07/16/2017 1:58 PM
--- NOTE | 2017-07-16 14:39 | Discharge Summary ---
Discharge Summary Date of Service Jul 16, 2017. (Edgar Padron M.D.) Discharge Summary Admission Date: Jul 09, 2017 at 20:02 Discharge Date: Jul 16, 2017 Discharge Disposition: senior living facility Principal Diagnosis: L hip fracture Problems/Secondary Diagnoses: Osteoporosis Metabolic encephalopathy Cirrhosis Portal Hypertension Hepatitis C Pancytopenia Hypertension Diabetes Mellitus Type 2 COPD Seizure Disorder Depression Immunizations: Have You Had Influenza Vaccine: No Influenza Vaccine Date: Sep 25, 2010 History of Tetanus Vaccine?: Yes Tetanus Immunization Date: Sep 25, 2010 History of Pneumococcal: Yes Pneumococcal Date: March 25, 2009 History of Hepatitis B Vaccine: No Procedures: ORIF left intertrochanteric hip fracture with trochanteric Nail Doppler LLE neg for DVT CT head neg x [address] Chest xrays Hip and femur, tibia/fibula xrays Consultations: Ortho GI Heme/Onc (Edgar Padron M.D.) Medication Reconciliation New Medications: Acetaminophen (Mapap) 325 Mg Tab 325 MG PO Q4H PRN for pain for 30 Days Enoxaparin (Enoxaparin Sodium) 40 Mg/0.4 Ml Inj 40 MG SQ DAILY@0600 for 28 Days Insulin Aspart (Novolog Flexpen) 100 Units/Ml Inj 0 UNITS SC ACHS for 30 Days Insulin Glargine (Lantus Solostar) 100 Unit/Ml Inj 25 UNITS SC QAM for 30 Days Lactulose (Lactulose) 30 Gm/45 Ml Syrp 30 GM PO DAILY PRN for Constipation for 30 Days Titrate to having at least 1-2 BMs per day Continued Medications: Bisacodyl (Bisacodyl) 5 Mg Tab 5 MG PO UD PRN for constipation, #2 TAB Calcium Carbonate-Vitamin D W/ (Caltrate 600 Plus) 1 Tab Tab 1 TABLET PO TID, TAB Cranberry (Vaccinium Macrocarp (Cranberry) 500 Mg Cap 500 MG PO DAILY Fluticasone Propionate (Fluticasone Propionate) 120 Sprays/6000 Mcg Inha 2 SPRAYS KODY DAILY Furosemide (Furosemide) 20 Mg Tab 20 MG PO DAILY Gabapentin (Gabapentin) 100 Mg Cap 100 MG PO BID Hydrocortisone (Hydrocortisone) 90 Appln/30 Gm Cr 1 APPLN TOP PRN UD, #57 Lansoprazole (Prevacid) 30 Mg Cap 30 MG PO BID Levetiracetam (Levetiracetam) 1,000 Mg Tab 1000 MG PO BID, #60 Metoprolol Succinate (Metoprolol Succinate ER) 25 Mg Tabcr 12.5 MG PO DAILY Potassium Chloride (Micro-K Ext Rel) 10 Meq Cap 10 MEQ PO BID, CAP Rifaximin (Xifaxan) 550 Mg Tab 550 MG PO BID Spironolactone (Aldactone) 50 Mg Tab 50 MG PO DAILY Venlafaxine Hcl (Effexor Extended Rel) 150 Mg Cap 150 MG PO DAILY, CAP Discontinued Medications: Insulin Aspart (Novolog Flexpen) 100 Units/Ml Inj 12 UT SC AC for sliding scale, #15 Insulin Glargine (Toujeo Solostar) 300 Unit/Ml Inj 80 UNITS SQ HS, #14 Oxycodone Immediate Rel Tab (Roxicodone Ir) 5 Mg Tab 10 MG PO TID PRN for Severe Pain, TAB Discharge Exam Review of Systems: Constitutional: No fever Respiratory: No shortness of breath Cardiovascular: No chest pain Abdomen: No pain, No nausea, No vomiting, No constipation Musculoskeletal: + joint pain, + calf pain Genitourinary - Female: No dysuria Physical Exam: General Appearance: no apparent distress Eyes: normal inspection Respiratory/Chest: lungs clear, normal breath sounds, no respiratory distress Cardiovascular: regular rate, rhythm, no edema Abdomen / GI: normal bowel sounds, soft, + tenderness (mild tenderness to palpation over RUQ) Extremities: no pedal edema, + calf tenderness (NOTE: evaluated by Doppler US - no concerns for DVT) 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iatric: alert, oriented x 3 (Edgar Padron M.D.) Hospital Course 62 year old with history of cirrhosis, seizure disorder and hepatitis C, admitted for mechanical fall and displaced left intertrochanteric hip fracture s /p ORIF on 07/10. Now with improved postop metabolic encephalopathy likely secondary to postop opioids given altered mental status and liver disease. CT negative for intracranial bleeding, negative urine analysis and no other signs of infection. Concerns of pancytopenia, hematology/oncology consulted. According to heme/onc cytopenias secondary to hypersplenism and ongoing cirrhosis and thrombocytopenia is of long duration. Heme/onc also checked the fibrinogen level and recommended monitoring CBC and platelet transfusion if patient is bleeding. Patient was also seen by GI during the course of her stay given her anemia and positive heme occult test. GI recommended PPI BID and did not see the need for endoscopy during admission given her lack of recent NSAID use, and no history of esophageal varices. GI recommended monitoring outputs for bleeding and transfusion if her hemoglobin falls below 8. Lovenox was held for concerns of bleeding given positive heme occult, anemia and thrombocytopenia. Metabolic encephalopathy - likely from postop opioids given hx of cirrhosis - Ammonia 14 (07/13) - Chest x-ray wnl - UA nl and joel dced to reduce risk of infection - Oxycodone and Dilaudid dced - Lactulose to relieve constipation (now resolved) Recommendation: - Avoid opioids for pain management - Lactulose PRN to ensure having at least 1-2 bowel movements per day PANCYTOPENIA: secondary to hypersplenism/cirrhosis Anemia, Thrombocytopenia and Leukopenia -H&H continues to be low 8.8 and 27.2 (07/16) -Stool heme occult + -GI and Heme/Onc consulted (refer to assessment above) -Continue PPI Bid -Transfuse if below 8 Hgb Chronic Thrombocytopenia (improved) - 44k (07/15) to 78 (07/16) today - Heme/Onc/GI consulted (refer to assessment above) - Monitoring for active bleeding Leukopenia - WBC 4.09 (07/16) Recommendation: -Check CBC/CMP in 2-3 days post discharge - Follow up with GI on an outpatient basis for possible endoscopy/colonoscopy given anemia and positive stool heme occult finding. Cirrhosis/Portal HTN 2/2 Hep C and Previous EtOH - EGD 2013 did not reveal any varices - Ammonia level 14 (07/13) - Coags improving: INR 1.2, PT 13.4 (07/16) - Meld score 16 - Continue Lasix - Continue Rifaximin - Continue Spironolactone to prevent ascites - Continue routine outpatient follow up Recommendation: - Lactulose PRN to ensure having at least 1-2 bowel movements per day - Routine outpatient GI follow up for cirrhosis/Hep C Left Intertrochanteric Hip Fracture - ORIF of left hip performed evening of 07/10 - Pain controlled with Tylenol only. Note: Dilaudid IV and Oxycodone PRN Dced due to AMS - WBC 4.09 (07/16) - Ortho signed off Recommendation: - Follow up with orthopedics as recommended - Tylenol/Ibuprofen for pain as needed Osteoporosis - low Vit D: 21.7 - Phos 2.2 and Mag 1.9 Recommendation: -Outpatient follow up with Dr. Singh in [place]. Dexa recommended within 6 months COPD with acute on chronic respiratory failure - required 4 L NC initially and on discharge 2 L NC - Pt reported home oxygen use, 2 L NC Recommendation: - Albuterol PRN - Follow up with PCP or [facility] for routine COPD care and PFT Diabetes mellitus type 2 with episodes of hypoglycemia - Held home medications - Lantus and Novolog SC insulin: Lantus 25 units QAM and SC: goal 110-140 correction factor 20 and CHO ratio 1:7 - BG 140 (07/16) Recommendation: - Lantus 25 units and Novolog SC - Follow up with PCP for routine care Seizure Disorder - Continue Keppra HTN - Continue Metoprolol Depression - Continue Effexor Hepatitis C - Not on treatment Head Injury due to Fall - Non-contrast head CT negative for acute pathology Right Hilar Opacity - Unclear if infective vs nodule - Procalcitonin <.05 - CT non-contrast for further characterization is overall unremarkable Recommendation: - Follow up with PCP as needed Hyperkalemia - resolved -K was 3.6 (07/16) BERNIE - resolved -Cr improved to 0.79 today -Hyponatremia, hyperkalemia resolved DVT Prophylaxis - SCD Knee, LIZET Hose - Lovenox 40mg held Code Status - Level I Full Code Disposition - To [facility] Total Time Spent: Greater than 30 minutes This includes examination of the patient, discharge planning, medication reconciliation, and communication with other providers. (Edgar Padron M.D.) Discharge Instructions Please refer to the electronic Patient Visit Report (Discharge Instructions) for additional information. (Edgar Padron M.D.) Follow-Up Routine f/u GI for possible endoscopy/colonoscopy Orthopedics within 2 weeks (Edgar Padron M.D.) Additional Copies To Franco Singh D.O. Reviewed: Pt Seen/Exam by Me (Sasha Toribio MD) History Resident Physician Supervision Note: I interviewed and examined the patient. Discussed with Dr. Padron and agree with findings and plan as documented in the note. Any exceptions or clarifications are listed here: Patient with tremendously improved mental status today after completely withholding all opioids for over 24 hrs approximately. Platelets improved, hgb stable, ok to restart Lovenox. Vitals reviewed AAOx3 Regular rate and rhythm, no murmurs gallops or rubs Lungs clear to auscultation bilaterally Abdomen positive bowel sounds soft nontender nondistended Extremities left hip with dressing clean dry and intact, minimal surrounding edema, calves are soft, 2 posterior cells pedis pulses bilaterally, plantar and dorsiflexes both feet easily Skin no rashes 62-year-old female here with a mechanical fall after chasing after her dog in the front yard. With some prolonged postoperative course secondary to likely opioid induced delirium. CT head negative which ruled out intracranial hemorrhage. no signs of infection, UA is negative -Discontinued all opioids and will only give acetaminophen at low doses given her liver disease as needed for pain -Continue Aldactone along with her Lasix to prevent ascites -follow CBC, LFTs, INR in near future -She will need routine outpatient follow-up with GI for her cirrhosis -out pt EGD/Colon for Heme+ stool recommended Documented By: Sasha Toribio (Sasha Toribio MD)
[2017-07-17] MEDS ORDERED: INSULIN ASPART 100 UNITS/ML 3 ML PEN SC SCH (02:00)
== END 2017-07-16 17:52 | DRG 480 ==
LOC: EDBD 15:48 → C.EDB 15:49 → C.MSW 20:02 → ENRESERV 20:22
PROVIDERS: ADMIT Student in an Organized Health Care Education/Training Program; ATTEND Family Medicine
PROC: 0QS704Z Reposition Left Upper Femur with Internal Fixation Device, Open Approach (ICD-10-PCS; principal; 2017-07-10 14:30)
DX: S72.142A Displaced intertrochanteric fracture of left femur, initial encounter for closed fracture (principal); G92 Toxic encephalopathy; D61.818 Other pancytopenia; K76.6 Portal hypertension; N17.9 Acute kidney failure, unspecified; G40.909 Epilepsy, unspecified, not intractable, without status epilepticus; K74.60 Unspecified cirrhosis of liver; B19.20 Unspecified viral hepatitis C without hepatic coma; T40.2X5A Adverse effect of other opioids, initial encounter; E87.5 Hyperkalemia; F10.21 Alcohol dependence, in remission; E11.9 Type 2 diabetes mellitus without complications; M81.0 Age-related osteoporosis without current pathological fracture; J44.9 Chronic obstructive pulmonary disease, unspecified; F17.200 Nicotine dependence, unspecified, uncomplicated; Z88.2 Allergy status to sulfonamides; Y93.K9 Activity, other involving animal care; Y92.018 Other place in single-family (private) house as the place of occurrence of the external cause; F32.9 Major depressive disorder, single episode, unspecified; W19.XXXA Unspecified fall, initial encounter; Y92.239 Unspecified place in hospital as the place of occurrence of the external cause

== ENCOUNTER 2017-07-28 16:28 | Inpatient (IN) | payer OTHER ==
[~2017-07-28] VITALS: Ht 172.7 cm; Wt 82.8 kg
[~2017-07-28 16:28] MED LIST changes: +ACET-1047 PO; -FSM70 PO; +HYDCR25 TOP; -HYDR0.2C10 TOP; +INSDGIPEN SC; -INSUINJ14 PO; -INSUINJ4 SC; +LCTL45 PO; +LEVE100021 PO; -LEVE1TAB57 PO; +LVNIS40 SQ; +NVLGIPEN SC; -OXYC1TAB3 PO
[2017-07-28] MEDS ORDERED: SODIUM CHLORIDE 0.9% 1000ML 1,000 ML IV STA (16:39)
--- NOTE | 2017-07-28 16:43 | EMERGENCY ROOM VISIT NOTE ---
History Report prepared by Christie: Kirstin Larry Under the Supervision of: Dr. Elliot Walker D.O. First contact with patient: 16:32 Chief Complaint: HIP PAIN Stated Complaint: HIP PAIN History of Present Illness The patient is a 62 year old female who presents to the Emergency Room with complaints of constant hip pain beginning today. The patient states that she recently had hip surgery done by Dr. Reis. She reports that she has been at [facility] and has not been eating or drinking there because she does not like the food. Per nursing staff, the patient was supposed to be on oxycodone but after telling her nursing staff at [facility] that she was going to take the entire bottle, the order was cancelled. The patient states that she has been doing well since the surgery but is still having hip pain that she rates as a 9/10 in severity. She denies any trauma, fall, chest pain, shortness of breath. She notes that she is on insulin. She does not want to return to [facility]. Source of History: patient, nursing staff Onset: today Position: other (left hip) Symptom Intensity: 9/10 Timing: constant Associated Symptoms: No chest pain, No SOB Note: Pt has not been eating or drinking. She denies any trauma, fall. Review of Systems See HPI for pertinent positives & negatives. A total of 10 systems reviewed and were otherwise negative. 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 (23) Generalized-onset seizures (24) Head injury (25) Head injury (26) Headache (27) Headache (28) Headache (29) Headache (30) Headache (31) Headache (32) Headache (33) Headache (34) Headache (35) Headache (36) Headache (37) Hepatic encephalopathy (38) Hip fracture, left (39) Hyperglycemia (40) Hyperglycemia (41) Hyperglycemia without ketosis (42) Hypertension Nos (43) Hypomagnesemia (44) Idiopathic peripheral autonomic neuropathy (45) Ileus (46) Laceration (47) Lumbago (48) Lumbosacral Neuritis Nos (49) Migraine (50) Migraine (51) Migraine (52) Migraine (53) Migraine (54) Migraine (55) Migraine (56) Migraine headache (57) Migraine headache (58) Migraine headache (59) Migraine Unspecified W/O Intract Mgrn W/O Status Migrainosus (60) Myalgia And Myositis Nos (61) Neck pain (62) Noncompliance (63) Opiate withdrawal (64) Osteoporosis (65) Peripheral edema (66) Portal Hypertension (67) Right facial pain (68) Right sided abdominal pain (69) Right upper quadrant abdominal pain (70) Right-sided chest wall pain (71) s/p cholecystectomy (72) s/p lumbar kyphoplasty (73) s/p lumbar laminectomy (74) s/p reconstruction nose (75) Tobacco Use Disorder (76) Unspecified Viral Hepatitis C Without Hepatic Coma (77) UTI (urinary tract infection) (78) Vomiting Family History Adopted Social History Smoking Status: Current Every Day Smoker Alcohol Use: other Drug Use: none Marital Status: Housing Status: lives with friends Occupation Status: disabled Current/Historical Medications Scheduled Calcium Carbonate-Vitamin D W/ (Caltrate 600 Plus), 1 TABLET PO TID Cranberry (Vaccinium Macrocarp (Cranberry), 500 MG PO DAILY Enoxaparin (Lovenox), 40 MG SQ DAILY Fluticasone Propionate (Fluticasone Propionate), 2 SPRAYS KODY DAILY Furosemide (Furosemide), 20 MG PO DAILY Gabapentin (Gabapentin), 100 MG PO TID Insulin Aspart (Novolog), 12 UNITS SQ TIDM Insulin Glargine (Lantus Solostar), 70 UNITS SQ HS Lansoprazole (Prevacid), 30 MG PO BID Levetiracetam (Levetiracetam), 1,000 MG PO BID Magnesium Oxide (Mag-Ox), 400 MG PO BID Metoprolol Succinate (Metoprolol Succinate ER), 12.5 MG PO DAILY Pantoprazole (Protonix), 40 MG PO BID Potassium Chloride (Micro-K Ext Rel), 10 MEQ PO BID Rifaximin (Xifaxan), 550 MG PO BID Spironolactone (Aldactone), 50 MG PO QAM Venlafaxine Hcl (Effexor Extended Rel), 150 MG PO DAILY Scheduled PRN Bisacodyl (Bisacodyl), 5 MG PO DAILY PRN for constipation Dicyclomine Hcl (Dicyclomine Hcl), 10 MG PO TID PRN for CRAMPING Hydrocortisone (Hydrocortisone), 1 APPLN TOP TID PRN for UNDECIDED Lactulose (Lactulose), 30 GM PO DAILY PRN for Constipation Allergies Coded Allergies: Coconut (Verified Allergy, Unknown, ANAPHYLAXIS, 05/11/17) Modafinil (Verified Adverse Reaction, Severe, MAKES HYPER, 05/11/17) Sulfamethoxazole (Verified Adverse Reaction, Intermediate, PT STATES NOT GOOD FOR LIVER, 05/11/17) PT STATES (NOT GOOD FOR LIVER) Zolpidem (Verified Adverse Reaction, Intermediate, LIVER PROBLEMS, 05/11/17 ) Morphine (Verified Adverse Reaction, Mild, hallucinations, 05/11/17) Physical Exam Vital Signs Date Time Temp Pulse Resp B/P (MAP) Pulse Ox O2 Delivery O2 Flow Rate FiO2 07/29/17 00:28 100 18 146/80 96 Room Air 07/28/17 23:52 96 18 121/69 98 Room Air 07/28/17 22:07 Room Air 07/28/17 22:02 97 18 128/63 95 Room Air 07/28/17 20:55 90 22 125/71 96 Room Air 07/28/17 19:44 92 18 131/67 97 Room Air 07/28/17 18:09 94 Room Air 07/28/17 17:26 98 07/28/17 16:47 37.1 100 18 127/69 99 Room Air Physical Exam GENERAL: Patient is awake, alert, somewhat anxious appearing and uncomfortable EYES: The conjunctivae are clear. The pupils are round and reactive. EARS, NOSE, MOUTH AND THROAT: The nose is without any evidence of any deformity. Mucous membranes are dry tongue is midline NECK: The neck is nontender and supple. RESPIRATORY: Normal respiratory effort is noted there is no evidence of wheezing rhonchi or rales CARDIOVASCULAR: Regular rate and rhythm noted there no murmurs rubs or gallops normal S1 normal S2 GASTROINTESTINAL: The abdomen is soft. Bowel sounds are present in all quadrants. Abdomen is nontender MUSCULOSKELETAL/EXTREMITIES: There is no evidence of gross deformity. Pain with range of motion of left hip, there were surgical scars noted on lateral left hip , superior surgical site is draining clear fluid, no surrounding erythema noted. SKIN: There is no obvious evidence of any rash. Pedal edema noted bilaterally, left greater than right, erythema noted to the left leg. NEUROLOGIC: Patient is awake alert and oriented x3 Medical Decision & Procedures ER Provider Diagnostic Interpretation: Radiology results as stated below per my review and radiologist interpretation: CHEST ONE VIEW PORTABLE FINDINGS: Anterior cervical spine fusion is incidentally noted. No pneumothorax or pleural effusion is present. There is no consolidation to suggest pneumonia. Cardiomediastinal silhouette is normal. IMPRESSION: No acute cardiopulmonary findings. Electronically signed by: Marcos Min M.D. 07/28/2017 5:27 PM Dictated Date/Time: 07/28/2017 5:26 PM LEFT LOWER EXTREMITY VENOUS DOPPLER FINDINGS: The left common femoral, superficial femoral and popliteal veins were compressible. Augmentation was normal. Flow was shown within the deep calf vessels. Left lower extremity edema was incidentally noted. IMPRESSION: No evidence of deep venous thrombus within the left lower extremity. Electronically signed by: Marcos Min M.D. 07/28/2017 7:21 PM Dictated Date/Time: 07/28/2017 7:21 PM Laboratory Results Test 07/28/17 17:20 07/28/17 17:29 07/28/17 18:05 Polychromasia 1+ Erythrocyte Sedimentation Rate 3 mm/hr (0-21) Direct Bilirubin 2.1 mg/dl (0-0.2) Lipase 142 U/L (73-393) Bedside Lactic Acid Venous 2.53 mmol/L (0.90-1.70) Urine Color DK YELLOW Urine Appearance CLEAR (CLEAR) Urine pH 6.5 (4.5-7.5) Urine Specific Jackson 1.016 (1.000-1.030) Urine Protein NEG (NEG) Urine Glucose (UA) 1+ (NEG) Urine Ketones NEG (NEG) Urine Occult Blood NEG (NEG) Urine Nitrite NEG (NEG) Urine Bilirubin NEG (NEG) Urine Urobilinogen POS (NEG) Urine Leukocyte Esterase NEG (NEG) Date/Time Source Procedure Growth Status 07/28/17 18:05 Urine , Clean Catch Urine Culture - Final THREE TYPES OF ORGANISMS PRESENT, ALL... Complete Laboratory results per my review. Medications Administered Medications (Trade) Dose Ordered Sig/Alyse Route Start Time Stop Time Status Last Admin Dose Admin Sodium Chloride 1,000 ml @ 999 mls/hr Q1H1M STAT IV 07/28/17 16:39 07/28/17 17:39 DC 07/28/17 16:39 999 MLS/HR Ceftriaxone Sodium (Rocephin Inj) 1 gm NOW STAT IV 07/28/17 19:51 07/28/17 19:52 DC 07/28/17 20:55 1 GM Oxycodone HCl (Roxicodone Immediate Rel Tab) 5 mg ONE STAT PO 07/29/17 01:17 07/29/17 01:37 DC 07/29/17 01:40 5 MG ED Course 163: The patient was evaluated in room A2. A complete history and physical examination were performed. 1638: NSS 1,000 ml @ 999 mls/hr IV. 1950: Rocephin Inj 1gm IV. 2019: I discussed the patient's case with Dr. Morrow of [facility]. The patient will be evaluated for further management. 2031: Upon reevaluation, the patient is doing well. I discussed results and treatment plan with the patient. She verbalizes agreement and understanding. I spoke with Dr. Morrow of the [facility]. The patient will be evaluated for further management and care. Medical Decision Differential diagnosis: Etiologies such as cellulitis, abscess, MRSA infection, DVT, necrotizing fasciitis, dermatitis, drug eruption, as well as others were entertained. Nursing notes reviewed. The patient is a 62-year-old female who suffered a hip fracture last month. She was taken to rehabilitation and left rehabilitation to be discharged home. It sounds as though the patient was not doing very well at home and she was sent to the emergency department by the visiting nurse for further evaluation. The patient's initial valuation appear to be consistent with significant dehydration as well as pain on her left hip. She had a clear drainage from the superior surgical site but there was no swelling erythema or dehiscence and I do not feel this was consistent with an infection however a culture of the drainage was obtained. She also appeared to have swelling and redness in her left leg. This could be consistent with cellulitis. She was treated with IV fluids as well as IV antibiotics. She was reevaluated multiple times. I discussed her case with the on-call [facility] hospitalist. We were able to involve the returned case inspector called to [facility] and they feel the patient would not benefit at this time from inpatient rehabilitation. I do feel the patient would not be safe at home given her current living conditions and having an ongoing infection in her leg. For this reason she was evaluated by the [facility] hospitalist to determine further disposition. Medication Reconcilliation Current Medication List: was personally reviewed by me Blood Pressure Screening Patient's blood pressure: Normal blood pressure Blood pressure disposition: Did not require urgent referral Consults Time Called: 2014 Consulting Physician: Dr. Morrow- [facility] Returned Call: 2018 I discussed the patient's case with Dr. Morrow of [facility]. The patient will be evaluated for further management. Impression Primary Impression: Cellulitis of left lower extremity Additional Impressions: Dehydration Pancytopenia S/P ORIF (open reduction internal fixation) fracture Left hip pain Post-op pain Scribe Attestation The scribe's documentation has been prepared under my direction and personally reviewed by me in its entirety. I confirm that the note above accurately reflects all work, treatment, procedures, and medical decision making performed by me. Departure Information Dispostion Being Evaluated By Hospitalist Referrals Franco Singh D.O. (PCP) Patient Instructions My [facility] Problem Qualifiers
[2017-07-28] MEDS ORDERED: OXYC1TAB3 PO (17:22)
[2017-07-28] MEDS ORDERED: PANT40TA PO (17:25)
--- NOTE | 2017-07-28 17:28 | DIAGNOSTIC IMAGING REPORT ---
CHEST ONE VIEW PORTABLE CLINICAL HISTORY: Fever. Sepsis. COMPARISON STUDY: Chest CT July 09, 2017 and chest radiograph July 05, 2017. FINDINGS: Anterior cervical spine fusion is incidentally noted. No pneumothorax or pleural effusion is present. There is no consolidation to suggest pneumonia. Cardiomediastinal silhouette is normal. IMPRESSION: No acute cardiopulmonary findings. Electronically signed by: Marcos Min M.D. 07/28/2017 5:27 PM Dictated Date/Time: 07/28/2017 5:26 PM
[2017-07-28 17:39] LABS: HEMATOCRIT 27.7 % (37-47); MEAN CELL VOLUME 78.5 fL (80-100); MEAN CORPUSCULAR HEMOGLOBIN 25.8 pg (25-34); MEAN CORPUSCULAR HGB CONC 32.9 g/dl (32-36); RED BLOOD COUNT 3.53 M/uL (4.2-5.4); WHITE BLOOD COUNT 2.53 K/uL (4.8-10.8)
[2017-07-28] MEDS ORDERED: MAGN400T6 PO (17:47)
[2017-07-28 17:54] LABS: INR 1.3 (0.9-1.1); PARTIAL THROMBOPLASTIN RATIO 1.3; PROTHROMBIN TIME (PATIENT) 13.6 SECONDS (9.0-12.0)
[2017-07-28] MEDS ORDERED: DICY10CA12 PO (17:56)
[2017-07-28 17:57] LABS: C-REACTIVE PROTEIN 1.02 mg/dl (0-0.29); CALCIUM 7.7 mg/dl (8.5-10.1); CREATININE 0.67 mg/dl (0.60-1.20); POTASSIUM 3.3 mmol/L (3.5-5.1)
[2017-07-28] MEDS ORDERED: NVLG SQ (17:59)
[2017-07-28] MEDS ORDERED: ALEN70TA3 PO (18:02)
[2017-07-28] MEDS ORDERED: INSDGIPEN SQ (18:06)
[2017-07-28 18:11] LABS: ANISOCYTOSIS PRESENT; BASO % 0.8 %; BASO ABS # 0.02 K/uL (0-0.2); COMPLETE YES; EOS % 0.8 %; IG% 0.4 %; LYMPH % 30.4 %; LYMPH ABS # 0.77 K/uL (1.2-3.4); MEAN PLATELET VOLUME 9.5 fL (7.4-10.4); MICROCYTOSIS PRESENT; MONO % 12.6 %; PLATELET COUNT 63 K/uL (130-400); POLYCHROMASIA 1+
[2017-07-28] MEDS ORDERED: ENOX40IN SQ (18:18)
[2017-07-28 18:29] LABS: URINE APPEARANCE CLEAR (CLEAR); URINE BILIRUBIN NEG (NEG); URINE COLOR DK YELLOW; URINE NITRITE NEG (NEG); URINE PH 6.5 (4.5-7.5); URINE SPECIFIC GRAVITY 1.016 (1.000-1.030); UROBILINOGEN POS (NEG)
[2017-07-28 18:35] LABS: MANUAL MICROSCOPIC REQUIRED? NO; REVIEW REQ? NO
--- NOTE | 2017-07-28 19:23 | DIAGNOSTIC IMAGING REPORT ---
LEFT LOWER EXTREMITY VENOUS DOPPLER CLINICAL HISTORY: Left lower extremity swelling. COMPARISON STUDY: Left lower extremity venous Doppler July 16, 2017. TECHNIQUE: Sonography of the deep venous system of the left lower extremity was performed. Compression and augmentation were evaluated. FINDINGS: The left common femoral, superficial femoral and popliteal veins were compressible. Augmentation was normal. Flow was shown within the deep calf vessels. Left lower extremity edema was incidentally noted. IMPRESSION: No evidence of deep venous thrombus within the left lower extremity. Electronically signed by: Marcos Min M.D. 07/28/2017 7:21 PM Dictated Date/Time: 07/28/2017 7:21 PM
[2017-07-28] MEDS ORDERED: CEFTRIAXONE SOD INJ 1 GM ADDVIAL IV STA (19:51)
[2017-07-28 22:07] VITALS: Ht 172.7 cm; Wt 82.8 kg
[2017-07-29] MEDS ORDERED: OXYCODONE HCL IR 5 MG TAB (IMMEDIATE RELEASE) PO STA (01:17)
[2017-07-29] MEDS ORDERED: GLUCAGON FOR INJ 1 MG VIAL SQ PRN (01:30)
[2017-07-29] MEDS ORDERED: BISACODYL 5 MG TABEC PO PRN (01:30)
[2017-07-29] MEDS ORDERED: DEXTROSE 50% 50 ML SYR IV PRN (01:30)
[2017-07-29] MEDS ORDERED: GLUCOSE 10 TABS/TUBE PO PRN (01:30)
[2017-07-29] MEDS ORDERED: GLUCOSE 40% GEL 15 GM TUBE PO PRN (01:30)
[2017-07-29] MEDS ORDERED: DC ALL PREVIOUSLY ORDERED DIABETES MEDS ONE (01:30)
[2017-07-29] MEDS ORDERED: HYDROCORTISONE 2.5% CR 30 GM TUBE EXT PRN (01:30)
[2017-07-29] MEDS ORDERED: LACTULOSE SYRUP 30 GM/45 ML UDP PO PRN (01:30)
[2017-07-29] MEDS ORDERED: ONDANSETRON INJ 2 MG/ML 2 ML VIAL IV PRN (01:30)
[2017-07-29] MEDS ORDERED: DICYCLOMINE HCL 10 MG CAP PO PRN (01:30)
[2017-07-29] MEDS ORDERED: LANTUS PER UNIT CHARGE SC STA (01:44)
[2017-07-29] MEDS ORDERED: GABAPENTIN 100 MG CAP PO ONE (02:30)
[2017-07-29] MEDS ORDERED: LEVETIRACETAM 500 MG TAB PO ONE (02:30)
[2017-07-29] MEDS ORDERED: PHARMACY GLYCEMIC MGMT CONSULT PRN (02:33)
[2017-07-29 02:34] VITALS: BP 115/67; PULSE 100; TEMP 36.8; O2SAT 97
--- NOTE | 2017-07-29 02:35 | History and Physical ---
History & Physical Date & Time of Service: Jul 29, 2017 at 01:13 Chief Complaint: Hip Pain Primary Care Physician: Franco Singh D.O. History of Present Illness Source: patient, clinic records, hospital records Mrs Carlin is a 62 year old female who presents to the ER with ongoing left hip pain after hip fracture and intertrochanteric nail performed by Dr Urban on Jul 09 2017. She went to rehabilitation in [facility] but was discharged after she was able to ambulate 150 yards. Upon arriving home her pain became increasingly worse and she has been unable to get back out of bed with severe 10 /10 pain. She called her family physician in [place] for a pain medication. As per her home health staff she wanted to "take the whole bottle" of pain medication therefore the medication was never prescribed. She called EMS and was transported to [facility]. In the ER she had a US for DVT. She is under a treatment plan due to chronic opiate use and therefore has not received any pain medication. She was given ceftriaxone for suspected cellulitis and 1L NSS bolus. Past Medical/Surgical History Medical Problems: Hepatitis C with liver cirrhosis - previously on Harvoni Seizure disorder - Generalized convulsive epilepsy Migraines COPD Cirrhosis Type 2 Diabetes Hx Pyelonephritis Asthma/Chronic obstructive lung disease Chronic opiate use Hepatic encephalopathy Hypertension Diabetic peripheral autonomic neuropathy Chronic migraines Osteoporosis Peripheral edema Portal Hypertension Past Surgical History: s/p cholecystectomy s/p lumbar kyphoplasty - 2002 L3, 2011 L2 s/p lumbar laminectomy - 2003 s/p reconstruction nose Family History Adopted Social History Smoking Status: Former Smoker Drug Use: none Marital Status: Housing status: lives alone Occupational Status: disabled Immunizations History of Influenza Vaccine: No Influenza Vaccine Date: Sep 25, 2010 History of Tetanus Vaccine?: Yes Tetanus Immunization Date: Sep 25, 2010 History of Pneumococcal: Yes Pneumococcal Date: March 25, 2009 History of Hepatitis B Vaccine: No Multi-Drug Resistant Organisms History of MDRO: No Allergies Coded Allergies: Coconut (Verified Allergy, Unknown, ANAPHYLAXIS, 05/11/17) Modafinil (Verified Adverse Reaction, Severe, MAKES HYPER, 05/11/17) Sulfamethoxazole (Verified Adverse Reaction, Intermediate, PT STATES NOT GOOD FOR LIVER, 05/11/17) PT STATES (NOT GOOD FOR LIVER) Zolpidem (Verified Adverse Reaction, Intermediate, LIVER PROBLEMS, 05/11/17 ) Morphine (Verified Adverse Reaction, Mild, hallucinations, 05/11/17) Home Medications Scheduled Calcium Carbonate-Vitamin D W/ (Caltrate 600 Plus), 1 TABLET PO TID Cranberry (Vaccinium Macrocarp (Cranberry), 500 MG PO DAILY Enoxaparin (Lovenox), 40 MG SQ DAILY Fluticasone Propionate (Fluticasone Propionate), 2 SPRAYS KODY DAILY Furosemide (Furosemide), 20 MG PO DAILY Gabapentin (Gabapentin), 100 MG PO TID Insulin Aspart (Novolog), 12 UNITS SQ TIDM Insulin Glargine (Lantus Solostar), 70 UNITS SQ HS Lansoprazole (Prevacid), 30 MG PO BID Levetiracetam (Levetiracetam), 1,000 MG PO BID Magnesium Oxide (Mag-Ox), 400 MG PO BID Metoprolol Succinate (Metoprolol Succinate ER), 12.5 MG PO DAILY Pantoprazole (Protonix), 40 MG PO BID Potassium Chloride (Micro-K Ext Rel), 10 MEQ PO BID Rifaximin (Xifaxan), 550 MG PO BID Spironolactone (Aldactone), 50 MG PO QAM Venlafaxine Hcl (Effexor Extended Rel), 150 MG PO DAILY Scheduled PRN Bisacodyl (Bisacodyl), 5 MG PO DAILY PRN for constipation Dicyclomine Hcl (Dicyclomine Hcl), 10 MG PO TID PRN for CRAMPING Hydrocortisone (Hydrocortisone), 1 APPLN TOP TID PRN for UNDECIDED Lactulose (Lactulose), 30 GM PO DAILY PRN for Constipation Review of Systems Constitutional: No fever, No chills Respiratory: No cough, No shortness of breath Cardiovascular: No chest pain, No orthopnea Abdomen: No pain, No nausea, No vomiting, No diarrhea, No constipation, No GI bleeding Musculoskeletal: + joint pain, + muscle pain Genitourinary - Female: No dysuria, No urinary frequency, No urinary urgency, No urinary incontinence, No urinary retention Neurologic: + numbness/tingling Hematologic / Lymphatic: No abnormal bleeding/bruising Integumentary: + problem reported (clear fluid seeping from wound), No rash, No itch Physical Exam Vital Signs Date Time Temp Pulse Resp B/P (MAP) Pulse Ox O2 Delivery O2 Flow Rate FiO2 9/13/17 00:28 100 18 146/80 96 Room Air 07/28/17 23:52 96 18 121/69 98 Room Air 07/28/17 22:07 Room Air 07/28/17 22:02 97 18 128/63 95 Room Air 07/28/17 20:55 90 22 125/71 96 Room Air 07/28/17 19:44 92 18 131/67 97 Room Air 07/28/17 18:09 94 Room Air 07/28/17 17:26 98 07/28/17 16:47 37.1 100 18 127/69 99 Room Air General Appearance: + moderate distress (from left hip pain while in the room) , + obese Head: normocephalic, atraumatic Eyes: + pertinent finding (pupils dilated, equal and reactive) Neck: trachea midline Respiratory/Chest: lungs clear, no respiratory distress, no accessory muscle use, + decreased breath sounds (poor inspiratory effort, no wheezing or rales) Cardiovascular: regular rate, rhythm, no murmur, normal peripheral pulses Abdomen/GI: normal bowel sounds, non tender, soft Back: no CVA tenderness Extremities/Musculoskelatal: normal capillary refill, + calf tenderness (left side), + pedal edema (1+ on right, 3+ on left up to her groin), + pertinent finding (clear fluid draining from surgical site from IT nail without surrounding erythema or swelling) 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: 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 as tested (no facial droop), + sensory deficit (Left sided L3, anterior fem cutaneous nerve distribution numbness (she reports having this after her fall, stocking distribution numbness up to her ankles b/l) Skin: + pertinent finding (no cellulitic/erythematous region on left leg as noted in ER notes) Diagnostics Laboratory Results Results Past 24 Hours Test 07/28/17 17:20 07/28/17 17:29 07/28/17 18:05 Range/Units White Blood Count 2.53 4.8-10.8 K/uL Red Blood Count 3.53 4.2-5.4 M/uL Hemoglobin 9.1 12.0-16.0 g/dL Hematocrit 27.7 37-47 % Mean Corpuscular Volume 78.5 80-100 fL Mean Corpuscular Hemoglobin 25.8 25-34 pg Mean Corpuscular Hemoglobin Concent 32.9 32-36 g/dl Platelet Count 63 130-400 K/uL Mean Platelet Volume 9.5 7.4-10.4 fL Neutrophils (%) (Auto) 55.0 % Lymphocytes (%) (Auto) 30.4 % Monocytes (%) (Auto) 12.6 % Eosinophils (%) (Auto) 0.8 % Basophils (%) (Auto) 0.8 % Neutrophils # (Auto) 1.39 1.4-6.5 K/uL Lymphocytes # (Auto) 0.77 1.2-3.4 K/uL Monocytes # (Auto) 0.32 0.11-0.59 K/uL Eosinophils # (Auto) 0.02 0-0.5 K/uL Basophils # (Auto) 0.02 0-0.2 K/uL RDW Standard Deviation 58.7 36.4-46.3 fL RDW Coefficient of Variation 20.7 11.5-14.5 % Immature Granulocyte % (Auto) 0.4 % Immature Granulocyte # (Auto) 0.01 0.00-0.02 K/uL Polychromasia 1+ Anisocytosis PRESENT Microcytosis PRESENT Erythrocyte Sedimentation Rate 3 0-21 mm/hr Prothrombin Time 13.6 9.0-12.0 SECONDS Prothromb Time International Ratio 1.3 0.9-1.1 Activated Partial Thromboplast Time 33.1 21.0-31.0 SECONDS Partial Thromboplastin Ratio 1.3 Sodium Level 140 136-145 mmol/L Potassium Level 3.3 3.5-5.1 mmol/L Chloride Level 110 98-107 mmol/L Carbon Dioxide Level 25 21-32 mmol/L Anion Gap 5.0 3-11 mmol/L Blood Urea Nitrogen 9 7-18 mg/dl Creatinine 0.67 0.60-1.20 mg/dl Est Creatinine Clear Calc Drug Dose 95.7 ml/min Estimated GFR () 107.7 Estimated GFR (Non- 92.9 BUN/Creatinine Ratio 14.0 10-20 Random Glucose 237 70-99 mg/dl Calcium Level 7.7 8.5-10.1 mg/dl Total Bilirubin 2.9 0.2-1 mg/dl Direct Bilirubin 2.1 0-0.2 mg/dl Aspartate Amino Transf (AST/SGOT) 59 15-37 U/L Alanine Aminotransferase (ALT/SGPT) 25 12-78 U/L Alkaline Phosphatase 223 45-117 U/L Total Creatine Kinase 63 26-192 U/L C-Reactive Protein 1.02 0-0.29 mg/dl Total Protein 5.5 6.4-8.2 gm/dl Albumin 1.6 3.4-5.0 gm/dl Lipase 142 73-393 U/L Bedside Lactic Acid Venous 2.53 0.90-1.70 mmol/L Urine Color DK YELLOW Urine Appearance CLEAR CLEAR Urine pH 6.5 4.5-7.5 Urine Specific [place] 1.016 1.000-1.030 Urine Protein NEG NEG Urine Glucose (UA) 1+ NEG Urine Ketones NEG NEG Urine Occult Blood NEG NEG Urine Nitrite NEG NEG Urine Bilirubin NEG NEG Urine Urobilinogen POS NEG Urine Leukocyte Esterase NEG NEG Microbiology Results 07/28/17 Blood Culture, Received Pending 07/28/17 Blood Culture, Received Pending 07/28/17 Urine Culture, Received Pending Diagnostic Radiology LEFT LOWER EXTREMITY VENOUS DOPPLER CLINICAL HISTORY: Left lower extremity swelling. COMPARISON STUDY: Left lower extremity venous Doppler July 16, 2017. TECHNIQUE: Sonography of the deep venous system of the left lower extremity was performed. Compression and augmentation were evaluated. FINDINGS: The left common femoral, superficial femoral and popliteal veins were compressible. Augmentation was normal. Flow was shown within the deep calf vessels. Left lower extremity edema was incidentally noted. IMPRESSION: No evidence of deep venous thrombus within the left lower extremity. Electronically signed by: Marcos Min M.D. 07/28/2017 7:21 PM Dictated Date/Time: 07/28/2017 7:21 PM CHEST ONE VIEW PORTABLE CLINICAL HISTORY: Fever. Sepsis. COMPARISON STUDY: Chest CT July 09, 2017 and chest radiograph July 05, 2017. FINDINGS: Anterior cervical spine fusion is incidentally noted. No pneumothorax or pleural effusion is present. There is no consolidation to suggest pneumonia. Cardiomediastinal silhouette is normal. IMPRESSION: No acute cardiopulmonary findings. Electronically signed by: Marcos Min M.D. 07/28/2017 5:27 PM Dictated Date/Time: 07/28/2017 5:26 PM EKG Normal sinus rhythm 99bpm No significant change to EKG from 09 Jul 2017 no ischemic changes noted Impression Assessment and Plan 62 year old female with recent left hip fracute -> ORIF with trochanteric nail performed by Dr Urban on July 09 presents to the ER with left hip pain. Left hip pain s/p trochanteric nail - consult ortho regarding further imaging if necessary to r/o infection/nail placement - limited pain options - NSAIDs and acetaminophen limited by her liver cirrhosis , chronic opiate use therefore unlikely to help in small quantities - PDMP - patient gets 160x 10mg oxycodone a month from her PCP in [place] Suspected opiate withdrawal - her opiates were apparently stopped at [facility] and she has not had any for the past 4 days as per the patient. - PDMP as above, patient was using chronic opiates before her hip fracture - clonidine 0.1mg Q6H HYACINTH for agitation/anxiety Code - Full VTE Prophylaxis - Plt low but >50 therefore will continue Lovenox prophylaxis as per outpatient regimen - SCD on right leg, LIZET b/l if possible (may be limited due to pain) Disposition - admit to med/surg Resident Physician Supervision Note: I was present with Dr. Aviles during the history and exam. I discussed the case with the resident and agree with the findings and plan as documented in the note. Any exceptions or clarifications are listed here: 62 y/o F Hx cirrhosis, DM, HTN, opiate abuse, recent hip fracture - discharged from [facility] following rehab as she was able to ambulate independently - presents c/o worsening pain and appears to have degree of cellulitis. There is some clear drainage from the surgical site without evidence of infection. The pt may have narcotic abuse issues and is exhibiting signs of withdrawal on admission. She does not appear to be able to ambulate independently. OE Awake - restless - poor historian S1,2 R CTA - poor effort NT, ND No clear deficits P: Ortho eval due to drainage Treat for potential opiate withdrawal Treat for cellulitis placed on SS - cont home HTN meds Documented By: Suresh Morrow Level of Care Med/Surg Advanced Directives Existing Living Will: Yes Existing Power of Production Illustrator: Yes Resuscitation Status FULL RESUSCITATION Resident Tracking Resident Involvement: Resident Care Provided Care Provided: Adult Hospital Medicine
[2017-07-29] MEDS: CLONIDINE HCL 0.1 MG TAB PO SCH ×4 (03:00→21:52)
[2017-07-29] MEDS ORDERED: INSULIN GLARGINE SOLOSTAR 100 UNITS/ML 3 ML PEN SC SCH ×2 (03:00→21:00)
[2017-07-29 03:15] VITALS: BP 117/72
[2017-07-29] MEDS: INSULIN ASPART 100 UNITS/ML 3 ML PEN SC SCH ×4 (03:28→21:51)
[2017-07-29 06:18] LABS: HEMATOCRIT 25.7 % (37-47); MEAN CELL VOLUME 79.6 fL (80-100); MEAN CORPUSCULAR HEMOGLOBIN 26.6 pg (25-34); MEAN CORPUSCULAR HGB CONC 33.5 g/dl (32-36); RED BLOOD COUNT 3.23 M/uL (4.2-5.4); WHITE BLOOD COUNT 2.68 K/uL (4.8-10.8)
[2017-07-29 06:39] LABS: INR 1.3 (0.9-1.1); PARTIAL THROMBOPLASTIN RATIO 1.3; PROTHROMBIN TIME (PATIENT) 13.8 SECONDS (9.0-12.0)
[2017-07-29 06:56] LABS: BUN/CREATININE RATIO 15.2 (10-20); C-REACTIVE PROTEIN 1.15 mg/dl (0-0.29); CALCIUM 7.3 mg/dl (8.5-10.1); CREATININE 0.61 mg/dl (0.60-1.20); POTASSIUM 3.3 mmol/L (3.5-5.1)
[2017-07-29 06:58] LABS: ESTIMATED AVERAGE GLUCOSE 166 mg/dl; HA1C FLAG Normal (Normal)
[2017-07-29 06:59] LABS: ALB/GLOB RATIO 0.4 (0.9-2); MAGNESIUM 1.5 mg/dl (1.8-2.4); PHOSPHORUS 2.3 mg/dl (2.5-4.9)
[2017-07-29] MEDS ORDERED: INSULIN ASPART 100 UNITS/ML 3 ML PEN SC SCH ×2 (07:00→12:00)
[2017-07-29 07:10] LABS: MEAN PLATELET VOLUME 9.4 fL (7.4-10.4); PLATELET COUNT 55 K/uL (130-400)
[2017-07-29 07:20] VITALS: BP 110/59; PULSE 91; TEMP 36.9; O2SAT 94
[2017-07-29 07:30] LABS: ANISOCYTOSIS PRESENT; BASO % 0.7 %; BASO ABS # 0.02 K/uL (0-0.2); COMPLETE YES; EOS % 1.9 %; HYPERSEGMENTED POLYS 1+; IG% 0.4 %; LYMPH % 30.6 %; LYMPH ABS # 0.82 K/uL (1.2-3.4); MICROCYTOSIS PRESENT; MONO % 13.4 %; POIKILOCYTOSIS PRESENT
[2017-07-29] MEDS ORDERED: MAGNESIUM SULFATE 1GM / D5W 1 GM in PREMIXED IN D5W 100 ML IV ONE (08:45)
[2017-07-29] MEDS: METOPROLOL SUCC 25MG EXT REL TAB PO SCH (09:00)
[2017-07-29] MEDS: LEVETIRACETAM 500 MG TAB PO SCH ×2 (09:00→21:53)
[2017-07-29] MEDS: VENLAFAXINE HCL XR 150 MG CAPXR PO SCH (09:00)
[2017-07-29] MEDS: FLUTICASONE PROPIONATE NA SPR 16 GM BTL NAE SCH (09:00)
[2017-07-29] MEDS: RIFAXIMIN TAB 550 MG TAB PO SCH ×2 (09:00→21:54)
[2017-07-29] MEDS: FUROSEMIDE 20 MG TAB PO SCH (09:00)
[2017-07-29] MEDS: MAGNESIUM OXIDE 400 MG TAB PO SCH ×2 (09:00→21:51)
[2017-07-29] MEDS: PANTOprazole SOD 40 MG TAB PO SCH ×2 (09:00→21:54)
[2017-07-29] MEDS: CALCIUM 600MG + VIT D 400 IU TAB PO SCH ×3 (09:00→21:54)
[2017-07-29] MEDS: POTASSIUM CHLORIDE 10 MEQ TABCR PO SCH ×2 (09:00→21:53)
[2017-07-29] MEDS ORDERED: ENOXAPARIN 40 MG/0.4 ML SYR SQ SCH (09:00)
[2017-07-29] MEDS: GABAPENTIN 100 MG CAP PO SCH ×3 (09:00→21:53)
[2017-07-29] MEDS: SPIRONOLACTONE 100 MG TAB PO SCH (09:00)
[2017-07-29] MEDS ORDERED: NURSING VERBAL MED ORDER ONE ×2 (09:30→16:15)
--- NOTE | 2017-07-29 10:44 | DIAGNOSTIC IMAGING REPORT ---
LEFT PELVIS/UNILATERAL HIP 1 VIEW CLINICAL HISTORY: 62 years-old Female presenting with h/o recent trochanteric nailing. TECHNIQUE: Single frontal view of the pelvis and frontal and crosstable lateral views of the left hip were obtained. COMPARISON: 07/10/2017 and 07/09/2017. FINDINGS: Intramedullary nail through the proximal left femoral metaphysis and left femoral neck across the intertrochanteric fracture. An interlocking proximal diaphyseal screw also noted. No malalignment. No hardware complication. Deformity of the inferior left pubic ramus suggests age-indeterminate fracture, unchanged from prior radiographs. No gross disruption of the superior pubic ramus is apparent. IMPRESSION: 1. Expected postsurgical appearance of the intertrochanteric left femoral fracture status post internal fixation. No malalignment or hardware complication. 2. Deformity of the left inferior pubic ramus may suggest age-indeterminate fracture, unchanged. Electronically signed by: Flavio Vázquez M.D. 07/29/2017 10:43 AM Dictated Date/Time: 07/29/2017 10:38 AM
[2017-07-29] MEDS ORDERED: POTASSIUM PHOS 3 MMOL/1 ML INFUSION IV STA (11:18)
--- NOTE | 2017-07-29 11:36 | Progress Note ---
Subjective Date of Service: Jul 29, 2017. Subjective Pt evaluation today including: conversation w/ patient Patient is here on first day of hospitalization. Patient appears to be very drowsy but does awake on questioning. Patient reports having no pain or discomfort at this time. Problem List Medical Problems: (1) Acute exacerbation of chronic low back pain Status: Acute (2) Anxiety Status: Acute (3) Back pain Status: Acute (4) Cellulitis of left lower extremity Status: Acute (5) Chronic abdominal pain Status: Acute (6) Chronic diarrhea Status: Acute (7) Complaints of total body pain Status: Acute (8) Contusion of multiple sites Status: Acute (9) Dehydration Status: Acute (10) Elevated bilirubin Status: Acute (11) Episodic overuse of medication Status: Acute (12) Facial pain Status: Acute (13) Fatigue Status: Acute (14) Hallucinations Status: Acute (15) Headache Status: Acute (16) Hyperglycemia Status: Acute (17) Hyperglycemia Status: Acute (18) Left hip pain Status: Acute (19) Migraine Status: Acute (20) Migraine Status: Acute (21) Migraine Status: Acute (22) Migraine Status: Acute (23) Migraine Status: Acute (24) Migraine Status: Acute (25) Migraine Status: Acute (26) Opioid withdrawal Status: Acute (27) Pancytopenia Status: Acute (28) Paranoia Status: Acute (29) Post-op pain Status: Acute (30) Pyelonephritis Status: Acute (31) Renal colic on left side Status: Acute (32) S/P ORIF (open reduction internal fixation) fracture Status: Acute (33) Skin tear Status: Acute (34) Thrombocytopenia Status: Acute (35) Vomiting Status: Acute Review of Systems All Other Systems: Reviewed and Negative Medications Current Inpatient Medications Medications (Trade) Dose Ordered Sig/Alyse Route Start Time Stop Time Status Last Admin Dose Admin Clonidine HCl (Catapres Tab) 0.1 mg Q6H PO 07/29/17 03:00 08/28/17 02:59 Ondansetron HCl (Zofran Inj) 4 mg Q6H PRN IV 07/29/17 01:30 08/28/17 01:29 Bisacodyl (Dulcolax Tab) 5 mg DAILY PRN PO 07/29/17 01:30 08/28/17 01:29 Calcium/Vitamin D (Caltrate Plus Tab) 1 tab TID PO 07/29/17 09:00 08/28/17 08:59 Dicyclomine HCl (Bentyl Cap) 10 mg TID PRN PO 07/29/17 01:30 08/28/17 01:29 Fluticasone Propionate (Flonase Nasal [place]) 2 sprays DAILY KODY 07/29/17 09:00 08/28/17 08:59 Furosemide (Lasix Tab) 20 mg DAILY PO 07/29/17 09:00 08/28/17 08:59 Gabapentin (Neurontin Cap) 100 mg TID PO 07/29/17 09:00 08/28/17 08:59 Hydrocortisone (Hydrocortisone 2.5% Crm) 1 appln TID PRN EXT 07/29/17 01:30 08/28/17 01:29 Lactulose (Chronulac Syrup) 30 gm DAILY PRN PO 07/29/17 01:30 08/28/17 01:29 Magnesium Oxide (Mag-Ox Tab) 400 mg BID PO 07/29/17 09:00 08/28/17 08:59 Metoprolol Succinate (Toprol Xl Tab) 12.5 mg DAILY PO 07/29/17 09:00 08/28/17 08:59 Pantoprazole Sodium (Protonix Tab) 40 mg BID PO 07/29/17 09:00 08/28/17 08:59 Potassium Chloride (Klor-Con M10) 10 meq BID PO 07/29/17 09:00 08/28/17 08:59 Rifaximin (Xifaxan Tab) 550 mg BID PO 07/29/17 09:00 08/28/17 08:59 Venlafaxine HCl (effeXOR EXTENDED REL CAP) 150 mg DAILY PO 07/29/17 09:00 08/28/17 08:59 Levetiracetam (Keppra Tab) 1,000 mg BID PO 07/29/17 09:00 08/28/17 08:59 Spironolactone (Aldactone Tab) 50 mg QAM PO 07/29/17 09:00 08/28/17 08:59 Glucose (Glucose 40% Gel) 15-30 GRAMS 15 GRAMS... UD PRN PO 07/29/17 01:30 08/28/17 01:29 Glucose (Glucose Chew Tab) 4-8 Tablets 4 Tabl... UD PRN PO 07/29/17 01:30 08/28/17 01:29 Dextrose (Dextrose 50% 50ML Syringe) 25-50ML OF 50% DW IV FOR... UD PRN IV 07/29/17 01:30 08/28/17 01:29 Glucagon (Glucagon Inj) 1 mg UD PRN SQ 07/29/17 01:30 08/28/17 01:29 Miscellaneous Information (Consult Glycemic Management Pharmacy) 1 ea UD PRN N/A 07/29/17 02:33 08/28/17 02:32 Insulin Glargine (Lantus Solostar Pen) 30 units QAM SC 07/29/17 03:00 08/28/17 02:59 07/29/17 03:27 30 UNITS Ceftriaxone Sodium 1 gm/ Dextrose 50 ml @ 100 mls/hr Q24H IV 07/29/17 20:00 08/07/17 19:59 Insulin Aspart (novoLOG ASPART) SLIDING SCALE G... Q6 SC 07/29/17 12:00 08/28/17 11:59 Objective Vital Signs Date Time Temp Pulse Resp B/P (MAP) Pulse Ox O2 Delivery O2 Flow Rate FiO2 07/29/17 07:20 36.9 91 22 110/59 (76) 94 Nasal Cannula 2.0 07/29/17 03:15 117/72 (87) 07/29/17 02:34 36.8 100 18 115/67 (83) 97 Room Air 07/29/17 02:30 Nasal Cannula 2.0 07/29/17 01:58 95 18 136/80 95 07/29/17 00:28 100 18 146/80 96 Room Air 07/28/17 23:52 96 18 121/69 98 Room Air 07/28/17 22:07 Room Air 07/28/17 22:02 97 18 128/63 95 Room Air 07/28/17 20:55 90 22 125/71 96 Room Air 07/28/17 19:44 92 18 131/67 97 Room Air 07/28/17 18:09 94 Room Air 07/28/17 17:26 98 07/28/17 16:47 37.1 100 18 127/69 99 Room Air Physical Exam General Appearance: no apparent distress Eyes: normal inspection Respiratory/Chest: chest non-tender, lungs clear, normal breath sounds Cardiovascular: regular rate, rhythm, no edema, no gallop Abdomen: normal bowel sounds, non tender, soft Extremities: non-tender (no ertyhema noted on left scar site of left hip. no wartmh or tenderness to touch) Lymphatic: no adenopathy Laboratory Results Last 24 Hours Test 07/28/17 17:20 07/28/17 17:29 07/28/17 18:05 07/29/17 03:13 White Blood Count 2.53 K/uL Red Blood Count 3.53 M/uL Hemoglobin 9.1 g/dL Hematocrit 27.7 % Mean Corpuscular Volume 78.5 fL Mean Corpuscular Hemoglobin 25.8 pg Mean Corpuscular Hemoglobin Concent 32.9 g/dl Platelet Count 63 K/uL Mean Platelet Volume 9.5 fL Neutrophils (%) (Auto) 55.0 % Lymphocytes (%) (Auto) 30.4 % Monocytes (%) (Auto) 12.6 % Eosinophils (%) (Auto) 0.8 % Basophils (%) (Auto) 0.8 % Neutrophils # (Auto) 1.39 K/uL Lymphocytes # (Auto) 0.77 K/uL Monocytes # (Auto) 0.32 K/uL Eosinophils # (Auto) 0.02 K/uL Basophils # (Auto) 0.02 K/uL RDW Standard Deviation 58.7 fL RDW Coefficient of Variation 20.7 % Immature Granulocyte % (Auto) 0.4 % Immature Granulocyte # (Auto) 0.01 K/uL Polychromasia 1+ Anisocytosis PRESENT Microcytosis PRESENT Erythrocyte Sedimentation Rate 3 mm/hr Prothrombin Time 13.6 SECONDS Prothromb Time International Ratio 1.3 Activated Partial Thromboplast Time 33.1 SECONDS Partial Thromboplastin Ratio 1.3 Sodium Level 140 mmol/L Potassium Level 3.3 mmol/L Chloride Level 110 mmol/L Carbon Dioxide Level 25 mmol/L Anion Gap 5.0 mmol/L Blood Urea Nitrogen 9 mg/dl Creatinine 0.67 mg/dl Est Creatinine Clear Calc Drug Dose 95.7 ml/min Estimated GFR () 107.7 Estimated GFR (Non- 92.9 BUN/Creatinine Ratio 14.0 Random Glucose 237 mg/dl Calcium Level 7.7 mg/dl Total Bilirubin 2.9 mg/dl Direct Bilirubin 2.1 mg/dl Aspartate Amino Transf (AST/SGOT) 59 U/L Alanine Aminotransferase (ALT/SGPT) 25 U/L Alkaline Phosphatase 223 U/L Total Creatine Kinase 63 U/L C-Reactive Protein 1.02 mg/dl Total Protein 5.5 gm/dl Albumin 1.6 gm/dl Lipase 142 U/L Bedside Lactic Acid Venous 2.53 mmol/L Urine Color DK YELLOW Urine Appearance CLEAR Urine pH 6.5 Urine Specific [place] 1.016 Urine Protein NEG Urine Glucose (UA) 1+ Urine Ketones NEG Urine Occult Blood NEG Urine Nitrite NEG Urine Bilirubin NEG Urine Urobilinogen POS Urine Leukocyte Esterase NEG Bedside Glucose 223 mg/dl Test 07/29/17 05:47 07/29/17 08:16 White Blood Count 2.68 K/uL Red Blood Count 3.23 M/uL Hemoglobin 8.6 g/dL Hematocrit 25.7 % Mean Corpuscular Volume 79.6 fL Mean Corpuscular Hemoglobin 26.6 pg Mean Corpuscular Hemoglobin Concent 33.5 g/dl Platelet Count 55 K/uL Mean Platelet Volume 9.4 fL Neutrophils (%) (Auto) 53.0 % Lymphocytes (%) (Auto) 30.6 % Monocytes (%) (Auto) 13.4 % Eosinophils (%) (Auto) 1.9 % Basophils (%) (Auto) 0.7 % Neutrophils # (Auto) 1.42 K/uL Lymphocytes # (Auto) 0.82 K/uL Monocytes # (Auto) 0.36 K/uL Eosinophils # (Auto) 0.05 K/uL Basophils # (Auto) 0.02 K/uL RDW Standard Deviation 60.5 fL RDW Coefficient of Variation 20.8 % Immature Granulocyte % (Auto) 0.4 % Immature Granulocyte # (Auto) 0.01 K/uL Hypersegmented Polys 1+ Poikilocytosis PRESENT Anisocytosis PRESENT Microcytosis PRESENT Prothrombin Time 13.8 SECONDS Prothromb Time International Ratio 1.3 Activated Partial Thromboplast Time 34.3 SECONDS Partial Thromboplastin Ratio 1.3 Sodium Level 143 mmol/L Potassium Level 3.3 mmol/L Chloride Level 112 mmol/L Carbon Dioxide Level 25 mmol/L Anion Gap 6.0 mmol/L Blood Urea Nitrogen 9 mg/dl Creatinine 0.61 mg/dl Est Creatinine Clear Calc Drug Dose 105.1 ml/min Estimated GFR () 111.0 Estimated GFR (Non- 95.8 BUN/Creatinine Ratio 15.2 Random Glucose 164 mg/dl Estimated Average Glucose 166 mg/dl Hemoglobin A1c 7.4 % Lactic Acid Level 1.7 mmol/L Calcium Level 7.3 mg/dl Phosphorus Level 2.3 mg/dl Magnesium Level 1.5 mg/dl Total Bilirubin 2.5 mg/dl Aspartate Amino Transf (AST/SGOT) 52 U/L Alanine Aminotransferase (ALT/SGPT) 22 U/L Alkaline Phosphatase 201 U/L Ammonia 64.0 umol/L Total Creatine Kinase 56 U/L C-Reactive Protein 1.15 mg/dl Total Protein 5.2 gm/dl Albumin 1.4 gm/dl Globulin 3.8 gm/dl Albumin/Globulin Ratio 0.4 Bedside Glucose 123 mg/dl Assessment and Plan Hepatic encephalopathy Patient has h/o cirrhosis. Ammonia is elevated. Will order lactulose orally. If she is not able to tolerate it, will try ng tube. will moniotr patient mental status in the afternoon opiod abuse Patient appears to have been cut off by PCP in June 05 (last script). Patient likely had meds for up to a month so she should have stopped around jul 06. However we are not sure at the time. will discuss case with PCP to see why she was "cut off". cellulitis in left lower extremity s/p ORIF of left hip Currently not sure of this diagnosis, as I do not see erythema, nor warmth to touch or purulent drainage. Will leave antibiotic on at this point, and await input from ortho. Anemia will order ferritin, iron studies. and repeat h and h today in the afternoon. dvt proph: scd. Continued [facility] stay due to: ambulation difficulties (Patient is lethargic.) Discharge planning: uncertain
[2017-07-29] MEDS ORDERED: LACTULOSE SYRUP 30 GM/45 ML UDP PO ONE (12:00)
[2017-07-29] MEDS ORDERED: POTASSIUM PHOSPHATE INJ 21 MMOL in SODIUM CHLORIDE 0.9% 500ML 500 ML IV SCH (12:00)
[2017-07-29] MEDS ORDERED: SERTRALINE HCL 50 MG TAB PO ONE (12:15)
--- NOTE | 2017-07-29 12:37 | Psychiatric Consultation ---
Consultation Date of Consultation Jul 29, 2017. Identifying Data 62-year-old female with a history of depression, multiple medical problems, and hip surgery on 07/09/2017 who presented I a EMS for uncontrolled pain the same day that she was discharged from rehabilitation at [facility]. Psychiatry was consulted for depression, anxiety, and opiate withdrawal. Chief Complaint "Better than I was". History of Present Illness According to records, EMS was called to the patient's residence in [place] yesterday, after she was discharged from [facility] the same day, returned home , and had uncontrolled hip pain. She was initially able to use her walker with assistance from her home health staff, but then her pain worsens as the day went on, and she was unable to get out of bed. She called her family doctor in [place] to ask for a pain medication prescription, but then made a comment to her home health staff that she wanted to "take the whole bottle," and when they informed the physician of this, he did not want to order pain medication. EMS was called, and she was brought to our emergency room for treatment. In the emergency room, she reported uncontrolled pain, worse after being discharged from [facility] earlier in the day. She said she did not want to return to [facility], but there staff were contacted, and said that she would not be appropriate to return there, as she had been discharged with [facility]. She was then admitted to the hospitalist service. She has been started on ceftriaxone for cellulitis at her surgical site, orthopedics has been consulted due to wound drainage, she's been started on clonidine protocol for opiate withdrawal and the admission note indicates concern for abuse of pain medications, and she was given 5 mg of oxycodone overnight. The patient is quite somnolent, so the interview is limited by her mental state. She is able to wake up and answer questions briefly, but then falls back asleep. She admits to a history of depression for which she was treated with Zoloft years ago, and says it was helpful. She does not seem aware that she is currently prescribed an antidepressant, venlafaxine XR 150 mg daily, although it is listed on her medication list. She does think she's been more depressed recently, as mood has been lower, she feels she is "never happy," cries multiple times a week, and has decreased energy and ability to enjoy things. She denies ever having suicidal thoughts, and when asked about the comment reported in the EMS report that she made to her home health aides, she admits that she might have said something, but was distraught because she was in pain, and denies any intent to harm herself. She states that she is feeling much better now that her pain is well controlled, and just wants to be able to sleep. She denies symptoms of anxiety, diamond, and psychosis. She denies ever abusing her pain medications, however it is not clear what the situation is with her narcotics. Review of the PDMP reveals monthly prescriptions for#160 tabs of oxycodone 10 mg from Franco Singh D.O., in [place]; last prescription filled 06/05/2017. She indicates that she has been off of narcotics for some time, but cannot give details. It is not clear if she was receiving narcotics while in [facility], or when she last took them, and unfortunately no toxicology screen was obtained on admission. Past Psychiatric History Current OP Treatment: no current treatment Prior OP Treatment: no prior treatment (PCP prescribed sertraline in the past) Prior Psych Hospitalizations: none Access to a Gun: No Suicide Attempts: No Past Medication Trials Sertraline - took years ago for depression, and it was helpful Past Medical/Surgical History (1) Migraine (2) Neck pain (3) Abdominal pain (4) Fall (5) Diabetes mellitus with hyperglycemia (6) Hip fracture, left (7) S/P ORIF (open reduction internal fixation) fracture (8) Opiate withdrawal (9) Diabetes mellitus (10) Osteoporosis (11) Idiopathic peripheral autonomic neuropathy (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 (13) Chronic obstructive lung disease (14) Asthma Allergies Allergies: Coded Allergies: Coconut (Verified Allergy, Unknown, ANAPHYLAXIS, 05/11/17) Modafinil (Verified Adverse Reaction, Severe, MAKES HYPER, 05/11/17) Sulfamethoxazole (Verified Adverse Reaction, Intermediate, PT STATES NOT GOOD FOR LIVER, 05/11/17) PT STATES (NOT GOOD FOR LIVER) Zolpidem (Verified Adverse Reaction, Intermediate, LIVER PROBLEMS, 05/11/17 ) Morphine (Verified Adverse Reaction, Mild, hallucinations, 05/11/17) Home Medications Scheduled Calcium Carbonate-Vitamin D W/ (Caltrate 600 Plus), 1 TABLET PO TID Cranberry (Vaccinium Macrocarp (Cranberry), 500 MG PO DAILY Enoxaparin (Lovenox), 40 MG SQ DAILY Fluticasone Propionate (Fluticasone Propionate), 2 SPRAYS KODY DAILY Furosemide (Furosemide), 20 MG PO DAILY Gabapentin (Gabapentin), 100 MG PO TID Insulin Aspart (Novolog), 12 UNITS SQ TIDM Insulin Glargine (Lantus Solostar), 70 UNITS SQ HS Lansoprazole (Prevacid), 30 MG PO BID Levetiracetam (Levetiracetam), 1,000 MG PO BID Magnesium Oxide (Mag-Ox), 400 MG PO BID Metoprolol Succinate (Metoprolol Succinate ER), 12.5 MG PO DAILY Pantoprazole (Protonix), 40 MG PO BID Potassium Chloride (Micro-K Ext Rel), 10 MEQ PO BID Rifaximin (Xifaxan), 550 MG PO BID Spironolactone (Aldactone), 50 MG PO QAM Venlafaxine Hcl (Effexor Extended Rel), 150 MG PO DAILY Scheduled PRN Bisacodyl (Bisacodyl), 5 MG PO DAILY PRN for constipation Dicyclomine Hcl (Dicyclomine Hcl), 10 MG PO TID PRN for CRAMPING Hydrocortisone (Hydrocortisone), 1 APPLN TOP TID PRN for UNDECIDED Lactulose (Lactulose), 30 GM PO DAILY PRN for Constipation Family History Adopted Alcohol Use Alcohol Use In Past 12 Months: No (patient denies) Smoking Use Smoking Status: Former Smoker Substance History The patient denies ever abusing her prescription medications or having addictions issues, however records indicate concern for narcotic abuse, and a history of alcoholic liver disease. Personal History Lives in: [facility] Review of Systems Attempted to review 10 systems, but patient was somnolent and repeatedly fell asleep so was unable to complete. Examination Vital Signs Vital Signs Past 12 Hours Date Time Temp Pulse Resp B/P (MAP) Pulse Ox O2 Delivery O2 Flow Rate FiO2 07/29/17 07:45 Nasal Cannula 2.0 07/29/17 07:20 36.9 91 22 110/59 (76) 94 Nasal Cannula 2.0 07/29/17 03:15 117/72 (87) 07/29/17 02:34 36.8 100 18 115/67 (83) 97 Room Air 07/29/17 02:30 Nasal Cannula 2.0 07/29/17 01:58 95 18 136/80 95 07/29/17 00:28 100 18 146/80 96 Room Air Laboratory Results Last 24 Hours Test 07/28/17 17:20 07/28/17 17:29 07/28/17 18:05 07/29/17 03:13 White Blood Count 2.53 K/uL Red Blood Count 3.53 M/uL Hemoglobin 9.1 g/dL Hematocrit 27.7 % Mean Corpuscular Volume 78.5 fL Mean Corpuscular Hemoglobin 25.8 pg Mean Corpuscular Hemoglobin Concent 32.9 g/dl Platelet Count 63 K/uL Mean Platelet Volume 9.5 fL Neutrophils (%) (Auto) 55.0 % Lymphocytes (%) (Auto) 30.4 % Monocytes (%) (Auto) 12.6 % Eosinophils (%) (Auto) 0.8 % Basophils (%) (Auto) 0.8 % Neutrophils # (Auto) 1.39 K/uL Lymphocytes # (Auto) 0.77 K/uL Monocytes # (Auto) 0.32 K/uL Eosinophils # (Auto) 0.02 K/uL Basophils # (Auto) 0.02 K/uL RDW Standard Deviation 58.7 fL RDW Coefficient of Variation 20.7 % Immature Granulocyte % (Auto) 0.4 % Immature Granulocyte # (Auto) 0.01 K/uL Polychromasia 1+ Anisocytosis PRESENT Microcytosis PRESENT Erythrocyte Sedimentation Rate 3 mm/hr Prothrombin Time 13.6 SECONDS Prothromb Time International Ratio 1.3 Activated Partial Thromboplast Time 33.1 SECONDS Partial Thromboplastin Ratio 1.3 Sodium Level 140 mmol/L Potassium Level 3.3 mmol/L Chloride Level 110 mmol/L Carbon Dioxide Level 25 mmol/L Anion Gap 5.0 mmol/L Blood Urea Nitrogen 9 mg/dl Creatinine 0.67 mg/dl Est Creatinine Clear Calc Drug Dose 95.7 ml/min Estimated GFR () 107.7 Estimated GFR (Non- 92.9 BUN/Creatinine Ratio 14.0 Random Glucose 237 mg/dl Calcium Level 7.7 mg/dl Total Bilirubin 2.9 mg/dl Direct Bilirubin 2.1 mg/dl Aspartate Amino Transf (AST/SGOT) 59 U/L Alanine Aminotransferase (ALT/SGPT) 25 U/L Alkaline Phosphatase 223 U/L Total Creatine Kinase 63 U/L C-Reactive Protein 1.02 mg/dl Total Protein 5.5 gm/dl Albumin 1.6 gm/dl Lipase 142 U/L Bedside Lactic Acid Venous 2.53 mmol/L Urine Color DK YELLOW Urine Appearance CLEAR Urine pH 6.5 Urine Specific [place] 1.016 Urine Protein NEG Urine Glucose (UA) 1+ Urine Ketones NEG Urine Occult Blood NEG Urine Nitrite NEG Urine Bilirubin NEG Urine Urobilinogen POS Urine Leukocyte Esterase NEG Bedside Glucose 223 mg/dl Test 07/29/17 05:47 07/29/17 08:16 White Blood Count 2.68 K/uL Red Blood Count 3.23 M/uL Hemoglobin 8.6 g/dL Hematocrit 25.7 % Mean Corpuscular Volume 79.6 fL Mean Corpuscular Hemoglobin 26.6 pg Mean Corpuscular Hemoglobin Concent 33.5 g/dl Platelet Count 55 K/uL Mean Platelet Volume 9.4 fL Neutrophils (%) (Auto) 53.0 % Lymphocytes (%) (Auto) 30.6 % Monocytes (%) (Auto) 13.4 % Eosinophils (%) (Auto) 1.9 % Basophils (%) (Auto) 0.7 % Neutrophils # (Auto) 1.42 K/uL Lymphocytes # (Auto) 0.82 K/uL Monocytes # (Auto) 0.36 K/uL Eosinophils # (Auto) 0.05 K/uL Basophils # (Auto) 0.02 K/uL RDW Standard Deviation 60.5 fL RDW Coefficient of Variation 20.8 % Immature Granulocyte % (Auto) 0.4 % Immature Granulocyte # (Auto) 0.01 K/uL Hypersegmented Polys 1+ Poikilocytosis PRESENT Anisocytosis PRESENT Microcytosis PRESENT Prothrombin Time 13.8 SECONDS Prothromb Time International Ratio 1.3 Activated Partial Thromboplast Time 34.3 SECONDS Partial Thromboplastin Ratio 1.3 Sodium Level 143 mmol/L Potassium Level 3.3 mmol/L Chloride Level 112 mmol/L Carbon Dioxide Level 25 mmol/L Anion Gap 6.0 mmol/L Blood Urea Nitrogen 9 mg/dl Creatinine 0.61 mg/dl Est Creatinine Clear Calc Drug Dose 105.1 ml/min Estimated GFR () 111.0 Estimated GFR (Non- 95.8 BUN/Creatinine Ratio 15.2 Random Glucose 164 mg/dl Estimated Average Glucose 166 mg/dl Hemoglobin A1c 7.4 % Lactic Acid Level 1.7 mmol/L Calcium Level 7.3 mg/dl Phosphorus Level 2.3 mg/dl Magnesium Level 1.5 mg/dl Total Bilirubin 2.5 mg/dl Aspartate Amino Transf (AST/SGOT) 52 U/L Alanine Aminotransferase (ALT/SGPT) 22 U/L Alkaline Phosphatase 201 U/L Ammonia 64.0 umol/L Total Creatine Kinase 56 U/L C-Reactive Protein 1.15 mg/dl Total Protein 5.2 gm/dl Albumin 1.4 gm/dl Globulin 3.8 gm/dl Albumin/Globulin Ratio 0.4 Bedside Glucose 123 mg/dl Mental Examination During interview pt is: cooperative (but interview limited by somnolence) Appearance: other (appears much older than stated age) Eye contact is: poor Motor behavior is: no abnormal motor movements Speech: other (minimal, but normal rate volume and tone) Affect: constricted (to tired) Mood is: depressed Thought process: goal directed Thought content: reality based without delusions Suicidal thought are: denied Homicidal thoughts are: denied Hallucinations: denies auditory, denies visual Intelligence estimated to be: average Insight: poor Judgement: poor Impression / Recommendations Impression 62-year-old female who lives alone in [place], has numerous medical problems and a remote history of depression, as well as recent surgery for hip fracture, who presents with poorly controlled pain the same day she was discharged from [facility]. Psychiatry was consulted due to concerns for depression, as she reportedly made a statement about taking a whole bottle of pain pills to her home health staff. She is quite somnolent today, and denies suicidal thoughts, but is unable to explain this statement in the records, so we will attempt to get collateral information from her home health staff. She does admit to being depressed lately, and does not appear aware that she is being prescribed venlafaxine XR. We will attempt to determine when this medication was started and when the dose was last adjusted, as she may benefit from further dose titration. Would also recommend the primary team coordinate with her PCP regarding her prescription pain medication use, as this is likely playing a role in her presentation to our hospital. Her last prescription from her PCP, Dr. Franco Singh, was filled 06/05/2017, and she was prescribed up to 60 mg a day of oxycodone. It's unclear if she is still seeing Dr. Singh, or if her narcotics have been discontinued. Care should be coordinated with him due to the risk of abuse, misuse, and negative outcomes with opiate abuse.
[2017-07-29 14:14] VITALS: BP 120/66; PULSE 86; O2SAT 98
--- NOTE | 2017-07-29 15:12 | Pharmacy Progress Note ---
Glycemic Control Intl Consult Date of Service Jul 29, 2017. Scope Glycemic Pharmacist consulted by Dr Aviles on 07/29/17 for glycemic control and to write orders per [facility] inpatient glycemic control protocol Objective Weight (Kilograms): 82.800 Accuchecks BSG (last 24hrs): Test 07/28/17 17:20 07/29/17 03:13 07/29/17 05:47 07/29/17 08:16 Random Glucose 237 mg/dl (70-99) 164 mg/dl (70-99) Bedside Glucose 223 mg/dl (70-90) 123 mg/dl (70-90) Test 07/29/17 12:14 Bedside Glucose 104 mg/dl (70-90) Laboratory Data (last 24hrs) Test 07/28/17 17:20 07/29/17 05:47 Anion Gap 5.0 mmol/L 6.0 mmol/L BUN/Creatinine Ratio 14.0 15.2 Blood Urea Nitrogen 9 mg/dl 9 mg/dl Creatinine 0.67 mg/dl 0.61 mg/dl Potassium Level 3.3 mmol/L 3.3 mmol/L Sodium Level 140 mmol/L 143 mmol/L White Blood Count 2.53 K/uL 2.68 K/uL Red Blood Count 3.53 M/uL 3.23 M/uL Hemoglobin 9.1 g/dL 8.6 g/dL Hematocrit 27.7 % 25.7 % Mean Corpuscular Volume 78.5 fL 79.6 fL Mean Corpuscular Hemoglobin 25.8 pg 26.6 pg Mean Corpuscular Hemoglobin Concent 32.9 g/dl 33.5 g/dl Platelet Count 63 K/uL 55 K/uL Mean Platelet Volume 9.5 fL 9.4 fL Neutrophils (%) (Auto) 55.0 % 53.0 % Lymphocytes (%) (Auto) 30.4 % 30.6 % Monocytes (%) (Auto) 12.6 % 13.4 % Eosinophils (%) (Auto) 0.8 % 1.9 % Basophils (%) (Auto) 0.8 % 0.7 % Neutrophils # (Auto) 1.39 K/uL 1.42 K/uL Lymphocytes # (Auto) 0.77 K/uL 0.82 K/uL Monocytes # (Auto) 0.32 K/uL 0.36 K/uL Eosinophils # (Auto) 0.02 K/uL 0.05 K/uL Basophils # (Auto) 0.02 K/uL 0.02 K/uL Hemoglobin A1c 7.4 % HbA1c Test 07/29/17 05:47 Hemoglobin A1c 7.4 % (4.5-5.6) H Recent Pertinent Medications Outpatient Anti-diabetic Regimen: * Toujeo 70 units HS, Novolog 12 units TIDM * A1c = 7.4% 07/29/17 (significant drop since 07/12/17) Risk Factors for Insulin Resistance: * Infection * Diet Assessment & Plan ASSESSMENT: * 62 yo F known to glycemic service from most recent admission in June 2017, here with hip pain and opiate withdraw * In June she required ~40 units of insulin per day to maintain within goal range BSGs * She received Lantus 30 units X 1 around 0300 this AM since her Toujeo at home was missed last night * Fasting BSG this AM 123 and lunch BSG 104 * She remains NPO so at this point I will give her a much reduced dose of Lantus when compared to outpatient and keep her current Novolog coverage * When she begins eating, Lantus may need increased to 20-30 units HS * ADA & AACE recommend a goal blood sugar range 140-180 mg/dl for the majority of critically ill & non-critically ill patients. However, more stringent targets may be selected in individual cases. PLAN FOR INPATIENT GLYCEMIC CONTROL: * Basal insulin with LANTUS 15 units SQ HS * Correctional Insulin with NOVOLOG per scale Q6hrs * Goal Range: Low 110 mg/dL - High 140 mg/dL * Correction Factor: 20 mg/dL/unit * Nutritional / Prandial insulin per carb ratio of 1 unit per 7 grams CHO consumed * Please note that the plan above was derived based on current level of insulin resistance and hospital stress. These recommendations are appropriate for inpatient admission only. Plan of care upon discharge will need to be reassessed to avoid potential outpatient hypo/hyperglycemia. Thank you.
[2017-07-29 15:43] VITALS: BP 102/67; PULSE 86; TEMP 36.7; O2SAT 97
[2017-07-29] MEDS ORDERED: OXYCODONE HCL IR 5 MG TAB (IMMEDIATE RELEASE) PO ONE (16:27)
[2017-07-29 17:23] LABS: HEMATOCRIT 32.3 % (37-47)
[2017-07-29 17:47] LABS: BUN/CREATININE RATIO 13.2 (10-20); CALCIUM 7.5 mg/dl (8.5-10.1); CREATININE 0.68 mg/dl (0.60-1.20); POTASSIUM 3.7 mmol/L (3.5-5.1)
[2017-07-29 18:02] LABS: FERRITIN 132.5 ng/ml (8.0-388.0); MAGNESIUM 1.9 mg/dl (1.8-2.4); PHOSPHORUS 3.8 mg/dl (2.5-4.9)
[2017-07-29] MEDS ORDERED: CEFTRIAXONE SOD INJ 1 GM in DEXTROSE 5% ADD-VANTAGE 50ML 50 ML IV SCH (20:00)
[2017-07-29 21:05] LABS: BENZODIAZEPINE, URINE NEG (NEG); COCAINE,URINE NEG (NEG); PHENCYCLIDINE, URINE NEG (NEG)
[2017-07-29 22:51] VITALS: BP 127/78; PULSE 91; TEMP 36.7; O2SAT 95
[2017-07-30 00:30] VITALS: O2SAT 96
[2017-07-30] MEDS: CLONIDINE HCL 0.1 MG TAB PO SCH ×4 (03:00→21:38)
[2017-07-30] MEDS: OXYCODONE HCL IR 5 MG TAB (IMMEDIATE RELEASE) PO PRN ×3 (05:41→23:35)
[2017-07-30 07:30] VITALS: BP 114/69; PULSE 93; TEMP 37; O2SAT 97
--- NOTE | 2017-07-30 08:03 | ORTHOPEDIC CONSULTATION ---
DATE OF CONSULTATION: 07/29/2017 HISTORY OF PRESENT ILLNESS: A 62-year-old female admitted to medical service with left hip pain. The patient has a history of a trochanteric nail July [address] Urban. Apparently had some pain and drainage of her hip. Seen in the ER and was given ceftriaxone for suspected cellulitis. PAST MEDICAL HISTORY: Hepatitis C, seizure disorder, migraine, COPD, cirrhosis, type 2 diabetes, history of pyelonephritis, chronic opioid use, hepatic encephalopathy, hypertension, diabetic neuropathy, chronic migraines, osteoporosis, peripheral edema, portal hypertension. PAST SURGICAL HISTORY: She has had several surgeries, see H&P and chart. SOCIAL HISTORY: The patient is a , lives alone. She is disabled. ALLERGIES: SULFA, MODAFINIL, ZOLPIDEM, MORPHINE. MEDICATION: multiple medications, see chart. The patient is afebrile. LABORATORY DATA: Her white count is 2.5. Her erythrocyte sedimentation rate is 3. IMAGING DATA: The ultrasound demonstrates no DVT. Her x-rays demonstrate well-aligned trochanteric femoral nail. PHYSICAL EXAMINATION: Exam of her hip demonstrates she has minor pain with range of motion. The upper incision has no erythema. There is a small amount of clear drainage coming out of the wound. She has a little bit of induration of the tissues around the left hip. ASSESSMENT: This is likely postoperative hematoma, seroma. She has multiple medical problems, likely delayed healing due to her medical conditions. Likely has continued drainage from seroma, but not clearly infected. Her blood test parameters do not suggest infection and when she is immunocompromised and cannot mount a response which could explain the low numbers and the parameters. At this point, would recommend observation, no surgery. If drainage becomes purulent or increases or she develops erythema or increasing pain, then consideration could be given to incision and drainage. Thank you for this consult. JARED
--- NOTE | 2017-07-30 08:04 | Clinical Documentation Query ---
CLINICAL DOCUMENTATION QUERY Dr. JULIEN, For accurate coding of hepatic encephalopathy, please document acuity of this diagnosis. In your clinical opinion is this patient being managed for: ( ) Acute and chronic hepatic encephalopathy, POA ( ) Acute and chronic hepatic encephalopathy, not POA ( x ) Chronic hepatic encephalopathy only ( ) Not Agree ( ) Other explanation of clinical findings (Please Explain) ( ) Unable to determine (Please Define) ( ) Need to Discuss The medical record reflects the following clinical findings, treatment, and risk factors. Clinical Indicators: 62 yo female presenting with L hip pain and ambulatory dysfunction. After admission, documentation reflects pt was found to be lethargic with an elevated ammonia level of 64. Hepatic encephalopathy is documented in the progress note of 07/29/17. Treatment: lactulose, monitor mental status Risk Factors: cirrhosis of liver Please clarify and document your clinical opinion in the progress notes and discharge summary. Terms such as "probable", "suspected", "likely", "questionable", "possible", or "still to be ruled out" are acceptable. IF IN AGREEMENT, YOU MUST DOCUMENT ABOVE DIAGNOSTIC STATEMENT IN DAILY PROGRESS NOTES AND DISCHARGE SUMMARY. This document is not part of the patient's record. Thank You, Chelsea Cleary, RN [phone]
[2017-07-30 08:44] LABS: HEMATOCRIT 29.6 % (37-47); MEAN CELL VOLUME 80.2 fL (80-100); MEAN CORPUSCULAR HEMOGLOBIN 26.6 pg (25-34); MEAN CORPUSCULAR HGB CONC 33.1 g/dl (32-36); RED BLOOD COUNT 3.69 M/uL (4.2-5.4); WHITE BLOOD COUNT 1.88 K/uL (4.8-10.8)
[2017-07-30 08:45] LABS: MEAN PLATELET VOLUME 9.7 fL (7.4-10.4); PLATELET COUNT 57 K/uL (130-400)
[2017-07-30] MEDS: CALCIUM 600MG + VIT D 400 IU TAB PO SCH ×3 (08:50→21:37)
[2017-07-30] MEDS: SPIRONOLACTONE 100 MG TAB PO SCH (08:50)
[2017-07-30] MEDS: MAGNESIUM OXIDE 400 MG TAB PO SCH ×2 (08:51→21:36)
[2017-07-30] MEDS: PANTOprazole SOD 40 MG TAB PO SCH ×2 (08:51→21:39)
[2017-07-30] MEDS: METOPROLOL SUCC 25MG EXT REL TAB PO SCH (08:51)
[2017-07-30] MEDS: VENLAFAXINE HCL XR 150 MG CAPXR PO SCH (08:51)
[2017-07-30] MEDS: FUROSEMIDE 20 MG TAB PO SCH (08:51)
[2017-07-30] MEDS: RIFAXIMIN TAB 550 MG TAB PO SCH ×2 (08:51→21:38)
[2017-07-30] MEDS: POTASSIUM CHLORIDE 10 MEQ TABCR PO SCH ×2 (08:52→21:36)
[2017-07-30] MEDS: FLUTICASONE PROPIONATE NA SPR 16 GM BTL NAE SCH (08:52)
[2017-07-30] MEDS: LEVETIRACETAM 500 MG TAB PO SCH ×2 (08:52→21:37)
[2017-07-30] MEDS: GABAPENTIN 100 MG CAP PO SCH ×3 (08:53→21:39)
[2017-07-30] MEDS ORDERED: SERTRALINE HCL 50 MG TAB PO SCH (09:00)
[2017-07-30] MEDS: INSULIN ASPART 100 UNITS/ML 3 ML PEN SC SCH ×4 (09:05→21:42)
[2017-07-30 09:11] LABS: BUN/CREATININE RATIO 14.8 (10-20); CALCIUM 7.9 mg/dl (8.5-10.1); CREATININE 0.56 mg/dl (0.60-1.20); POTASSIUM 3.7 mmol/L (3.5-5.1)
--- NOTE | 2017-07-30 11:13 | Psychiatric Progress Notes ---
Progress Note Date of Service Jul 30, 2017. Interval History 42-year-old single white female with intellectual disability and schizoaffective disorder who presented to the emergency room with dizziness, weakness, shaking, and slurred speech. She was admitted to the hospitalist service for treatment of a urinary tract infection, acute kidney injury, and systemic inflammatory response syndrome. Psychiatry was consulted for depression. Chief Complaint "Much better". Subjective Patient was seen & assessed and interval progress reviewed. Spoke with staff from her PCP's office (Dr. Singh in [place]) who state she has been on Effexor XR 150mg daily for years, and is on chronic opiates (oxycodone 10mg #160 a month ) for chronic pow back pain. She stated Dr. Singh put a hold on her next oxycodone prescription due to the patient's statement about taking the whole bottle (on the day of admission to the hospital), but plans to continue prescribing it to her once she returns home. Met with the patient, who is awake , alert, and oriented today. She states she is feeling much better, pain is well controlled, and mood is good. She continues to deny SI, and says she did make a statement about taking a whole bottle of pain pills, but "I was pissed, tired, hurting," and denies that she had any intent to harm herself. She had just returned home from [facility], says she didn't feel she was ready to leave , and felt overwhelmed. She is glad her home health nurses called and ambulance and that she was admitted to the hospital. She states that her mood has been lower in the past couple of months in the context of chronic pain and medical problems, and is willing to try a higher dose of Effexor XR. She does not feel she needs to follow-up with a psychiatrist or therapist as an outpatient. Mental Status Exam During interview pt is: alert and oriented, cooperative Appearance: appropriately dressed (hospital gown), appropriately groomed, other (appears older than stated age) Eye contact is: good Motor behavior is: no abnormal motor movements Speech: normal in rate, rhythm & volume Affect: mood congruent, euthymic Mood is: other ("much better") Thought process: goal directed, linear, logical, clear, coherent Thought content: reality based without delusions Suicidal thought are: denied Homicidal thoughts are: denied Hallucinations: denies auditory, denies visual Cognition: memory grossly intact, attention grossly intact, language grossly intact Intelligence estimated to be: average Insight: fair Judgement: fair Impression 62-year-old female who lives alone in [place], has numerous medical problems including chronic pain on high-dose oxycodone and a history of depression, with a recent surgery for hip fracture, who presents with poorly controlled pain the same day she was discharged from [facility]. Psychiatry was consulted due to concerns for depression, as she reportedly made a statement about taking a whole bottle of pain pills to her home health staff. We are attempting to get collateral information from her home health staff, and this physician spoke with her PCPs office staff today. She does admit to low her mood recently in the context of health issues, and is agreeable to increasing her venlafaxine XR to 225 mg daily. She is consistently denied suicidal thoughts here, and wishes to continue to follow up with her PCP rather then a psychiatrist or therapist. If the higher dose of venlafaxine XR is ineffective, recommended trial of duloxetine, which may also help with chronic pain. Could also consider a referral for outpatient psychiatric care. Have recommended that the primary team coordinate with her PCP regarding her chronic opiate use. Her last prescription from her PCP, Dr. Franco Singh, was filled 06/05/2017, and she was prescribed up to 60 mg a day of oxycodone. I have asked the psychiatric liaison nurse to contact her home health nurses for collateral information and to recommend that she not have access to large amounts of pills, specifically controlled substances, for safety reasons. We will also get a release for her PCP and send her psychiatric notes for coordination of care. Visit Code E&M Code: 78140 Data Vital Signs Last 24 Hrs: Date Time Temp Pulse Resp B/P (MAP) Pulse Ox O2 Delivery O2 Flow Rate FiO2 07/30/17 07:30 37.0 93 16 114/69 (84) 97 Nasal Cannula 2.0 07/30/17 07:10 Nasal Cannula 2.0 07/30/17 00:30 96 Nasal Cannula 2.0 07/29/17 22:51 36.7 91 20 127/78 (94) 95 Nasal Cannula 2.5 07/29/17 16:30 Nasal Cannula 2.0 07/29/17 15:43 36.7 86 18 102/67 (79) 97 Nasal Cannula 2.0 07/29/17 14:14 86 16 120/66 (84) 98 Nasal Cannula 2.0 Meds Administered Last 24 Hrs: Meds Administered (Past 24Hrs) Medications (Trade) Dose Ordered Sig/Alyse Route Start Time Stop Time Status Last Admin Dose Admin Sodium Chloride 1,000 ml @ 999 mls/hr Q1H1M STAT IV 07/28/17 16:39 07/28/17 17:39 DC 07/28/17 16:39 999 MLS/HR Ceftriaxone Sodium (Rocephin Inj) 1 gm NOW STAT IV 07/28/17 19:51 07/28/17 19:52 DC 07/28/17 20:55 1 GM Oxycodone HCl (Roxicodone Immediate Rel Tab) 5 mg ONE STAT PO 07/29/17 01:17 07/29/17 01:37 DC 07/29/17 01:40 5 MG Clonidine HCl (Catapres Tab) 0.1 mg Q6H PO 07/29/17 03:00 08/28/17 02:59 07/30/17 08:52 0.1 MG Calcium/Vitamin D (Caltrate Plus Tab) 1 tab TID PO 07/29/17 09:00 08/28/17 08:59 07/30/17 08:50 1 TAB Furosemide (Lasix Tab) 20 mg DAILY PO 07/29/17 09:00 08/28/17 08:59 07/30/17 08:51 20 MG Gabapentin (Neurontin Cap) 100 mg TID PO 07/29/17 09:00 08/28/17 08:59 07/30/17 08:53 100 MG Magnesium Oxide (Mag-Ox Tab) 400 mg BID PO 07/29/17 09:00 08/28/17 08:59 07/30/17 08:51 400 MG Metoprolol Succinate (Toprol Xl Tab) 12.5 mg DAILY PO 07/29/17 09:00 08/28/17 08:59 07/30/17 08:51 12.5 MG Pantoprazole Sodium (Protonix Tab) 40 mg BID PO 07/29/17 09:00 08/28/17 08:59 07/30/17 08:51 40 MG Potassium Chloride (Klor-Con M10) 10 meq BID PO 07/29/17 09:00 10/13/17 08:59 07/30/17 08:52 10 MEQ Rifaximin (Xifaxan Tab) 550 mg BID PO 07/29/17 09:00 08/28/17 08:59 07/30/17 08:51 550 MG Venlafaxine HCl (effeXOR EXTENDED REL CAP) 150 mg DAILY PO 07/29/17 09:00 08/28/17 08:59 07/30/17 08:51 150 MG Levetiracetam (Keppra Tab) 1,000 mg BID PO 07/29/17 09:00 08/28/17 08:59 07/30/17 08:52 1,000 MG Levetiracetam (Keppra Tab) 1,000 mg 0230 ONCE PO 07/29/17 02:30 07/29/17 02:40 DC 07/29/17 03:10 1,000 MG Spironolactone (Aldactone Tab) 50 mg QAM PO 07/29/17 09:00 08/28/17 08:59 07/30/17 08:50 50 MG Gabapentin (Neurontin Cap) 100 mg 0230 ONCE PO 07/29/17 02:30 07/29/17 02:40 DC 07/29/17 03:09 100 MG Insulin Glargine (Lantus Solostar Pen) 30 units QAM SC 07/29/17 03:00 07/29/17 15:04 DC 07/29/17 03:27 30 UNITS Insulin Aspart (novoLOG ASPART) SLIDING SCALE G... ACHS IL 07/29/17 03:00 07/29/17 09:26 DC 07/29/17 03:28 5 UNITS Ceftriaxone Sodium 1 gm/ Dextrose 50 ml @ 100 mls/hr Q24H IV 07/29/17 20:00 07/30/17 08:18 DC 07/29/17 20:11 100 MLS/HR Magnesium Sulfate 1 gm/Prmx 100 ml @ 100 mls/hr NOW ONCE IV 07/29/17 08:45 07/29/17 09:44 DC 07/29/17 09:22 100 MLS/HR Lactulose (Chronulac Syrup) 30 gm NOW ONCE PO 07/29/17 12:00 07/29/17 12:01 DC 07/29/17 12:07 30 GM Potassium Phosphate 21 mmol/ Sodium Chloride 507 ml @ 144 mls/hr TODAY@1200 IV 07/29/17 12:00 07/29/17 15:32 DC 07/29/17 12:07 144 MLS/HR Sertraline HCl (Zoloft Tab) 25 mg 1215 ONCE PO 07/29/17 12:15 07/29/17 12:16 DC 07/29/17 12:14 25 MG Insulin Glargine (Lantus Solostar Pen) 15 units HS IL 07/29/17 21:00 08/28/17 20:59 07/29/17 21:51 15 UNITS Insulin Aspart (novoLOG ASPART) SLIDING SCALE G... ACHS IL 07/29/17 17:15 08/28/17 17:14 07/30/17 09:05 5 UNITS Oxycodone HCl (Roxicodone Immediate Rel Tab) 5 mg Q8H PRN PO 07/30/17 00:00 08/13/17 00:00 07/30/17 05:41 5 MG Oxycodone HCl (Roxicodone Immediate Rel Tab) 5 mg 1627 ONCE PO 07/29/17 16:27 07/29/17 16:32 DC 07/29/17 17:04 5 MG Lab Results Last 24 Hrs: Last 24 Hours Test 07/29/17 12:14 07/29/17 16:57 07/29/17 17:13 07/29/17 20:18 Bedside Glucose 104 mg/dl 114 mg/dl Hemoglobin 10.6 g/dL Hematocrit 32.3 % Sodium Level 141 mmol/L Potassium Level 3.7 mmol/L Chloride Level 112 mmol/L Carbon Dioxide Level 24 mmol/L Anion Gap 5.0 mmol/L Blood Urea Nitrogen 9 mg/dl Creatinine 0.68 mg/dl Est Creatinine Clear Calc Drug Dose 94.3 ml/min Estimated GFR () 107.1 Estimated GFR (Non- 92.4 BUN/Creatinine Ratio 13.2 Random Glucose 126 mg/dl Calcium Level 7.5 mg/dl Phosphorus Level 3.8 mg/dl Magnesium Level 1.9 mg/dl Iron Level 60 mcg/dl Total Iron Binding Capacity 267 mcg/dl Ferritin 132.5 ng/ml Urine Opiates Screen POS Urine Methadone, Qualitative NEG Urine Barbiturates NEG Urine Phencyclidine (PCP) Level NEG Ur Amphetamine/Methamphetamine NEG MDMA (Ecstasy) Screen NEG Urine Benzodiazepines Screen NEG Urine Cocaine Metabolite NEG Urine Marijuana (THC) NEG Test 07/29/17 20:54 07/30/17 08:01 07/30/17 08:13 Bedside Glucose 200 mg/dl 125 mg/dl White Blood Count 1.88 K/uL Red Blood Count 3.69 M/uL Hemoglobin 9.8 g/dL Hematocrit 29.6 % Mean Corpuscular Volume 80.2 fL Mean Corpuscular Hemoglobin 26.6 pg Mean Corpuscular Hemoglobin Concent 33.1 g/dl RDW Standard Deviation 61.1 fL RDW Coefficient of Variation 20.9 % Platelet Count 57 K/uL Mean Platelet Volume 9.7 fL Sodium Level 141 mmol/L Potassium Level 3.7 mmol/L Chloride Level 109 mmol/L Carbon Dioxide Level 25 mmol/L Anion Gap 7.0 mmol/L Blood Urea Nitrogen 8 mg/dl Creatinine 0.56 mg/dl Est Creatinine Clear Calc Drug Dose 114.5 ml/min Estimated GFR () 114.2 Estimated GFR (Non- 98.5 BUN/Creatinine Ratio 14.8 Random Glucose 121 mg/dl Calcium Level 7.9 mg/dl
--- NOTE | 2017-07-30 14:03 | Pharmacy Progress Note ---
Glycemic: Assessment & Plan Date of Service Jul 30, 2017. Assessment & Plan BSGs ranging 114 - 205 mg/dl over the past 24hrs. Pt has started eating and requires increase in Lantus and tighter CF and CR. * INCREASE Basal insulin: Lantus 20 units every 24 hours * Correctional Insulin: Novolog Correction per scale ACHS Goal Range: Low 110 mg/dL - High 140 mg/dL TIGHTEN: Correction Factor: 18 mg/dL/unit * Prandial insulin: TIGHTEN: Per carb ratio of 1 unit per 6 grams CHO consumed Pharmacy will continue to monitor patient daily and write orders per [facility] inpatient glycemic control protocol. Thanks. * Please note that the plan above was derived based on current level of insulin resistance and hospital stress. These recommendations are appropriate for inpatient admission only. Plan of care upon discharge will need to be reassessed to avoid potential outpatient hypo/hyperglycemia.
[2017-07-30 14:29] VITALS: BP_SYST 114; BP_SYST 94; BP_DIAS 54; BP_DIAS 69; PULSE 90; PULSE 93; O2SAT 97
[2017-07-30 15:13] VITALS: BP 104/63; PULSE 95; TEMP 36.8; O2SAT 94
[2017-07-30] MEDS ORDERED: CEFTRIAXONE SOD INJ 1 GM in DEXTROSE 5% ADD-VANTAGE 50ML 50 ML IV STA (17:32)
--- NOTE | 2017-07-30 18:42 | Progress Note ---
Subjective Date of Service: Jul 30, 2017. Subjective Pt evaluation today including: conversation w/ patient, physical exam, chart review, lab review, review of studies 62 year old female, who is here for altered mental status and pain management. Patient today does not rememebr why she was admitted. She states though that she feels much better today than she did yesterday. She feels her pain has improved significantly. She denies any fever, chills, nausea, vomiting. Problem List Medical Problems: (1) Acute exacerbation of chronic low back pain Status: Acute (2) Anxiety Status: Acute (3) Back pain Status: Acute (4) Cellulitis of left lower extremity Status: Acute (5) Chronic abdominal pain Status: Acute (6) Chronic diarrhea Status: Acute (7) Complaints of total body pain Status: Acute (8) Contusion of multiple sites Status: Acute (9) Dehydration Status: Acute (10) Elevated bilirubin Status: Acute (11) Episodic overuse of medication Status: Acute (12) Facial pain Status: Acute (13) Fatigue Status: Acute (14) Hallucinations Status: Acute (15) Headache Status: Acute (16) Hyperglycemia Status: Acute (17) Hyperglycemia Status: Acute (18) Left hip pain Status: Acute (19) Migraine Status: Acute (20) Migraine Status: Acute (21) Migraine Status: Acute (22) Migraine Status: Acute (23) Migraine Status: Acute (24) Migraine Status: Acute (25) Migraine Status: Acute (26) Opioid withdrawal Status: Acute (27) Pancytopenia Status: Acute (28) Paranoia Status: Acute (29) Post-op pain Status: Acute (30) Pyelonephritis Status: Acute (31) Renal colic on left side Status: Acute (32) S/P ORIF (open reduction internal fixation) fracture Status: Acute (33) Skin tear Status: Acute (34) Thrombocytopenia Status: Acute (35) Vomiting Status: Acute Review of Systems ROS negeative except whats noted in HPI. All Other Systems: Reviewed and Negative Medications Medications (Trade) Dose Ordered Sig/Alyse Route Start Time Stop Time Status Last Admin Dose Admin Oxycodone HCl (Roxicodone Immediate Rel Tab) 5 mg Q8H PRN PO 07/30/17 00:00 08/13/17 00:00 07/30/17 16:07 5 MG Ceftriaxone Sodium 1 gm/ Dextrose 50 ml @ 100 mls/hr ONE STAT IV 07/30/17 17:32 07/30/17 18:01 DC 07/30/17 18:13 100 MLS/HR Objective Vital Signs Date Time Temp Pulse Resp B/P (MAP) Pulse Ox O2 Delivery O2 Flow Rate FiO2 07/30/17 15:15 Nasal Cannula 2.0 07/30/17 15:13 36.8 95 18 104/63 (77) 94 Room Air 07/30/17 14:29 93 97 07/30/17 14:29 90 94/54 (67) 07/30/17 07:30 37.0 93 16 114/69 (84) 97 Nasal Cannula 2.0 07/30/17 07:10 Nasal Cannula 2.0 07/30/17 00:30 96 Nasal Cannula 2.0 07/29/17 22:51 36.7 91 20 127/78 (94) 95 Nasal Cannula 2.5 Physical Exam General Appearance: WD/WN, no apparent distress Neck: supple, no adenopathy Respiratory/Chest: chest non-tender, lungs clear Cardiovascular: regular rate, rhythm, no edema, no gallop Abdomen: normal bowel sounds, non tender Extremities: non-tender Skin: normal color Lymphatic: no adenopathy Comments: non-tender (no ertyhema noted on left scar site of left hip. no wartmh or tenderness to touch) Laboratory Results Last 24 Hours Test 07/29/17 20:18 07/29/17 20:54 07/30/17 08:01 07/30/17 08:13 Urine Opiates Screen POS Urine Methadone, Qualitative NEG Urine Barbiturates NEG Urine Phencyclidine (PCP) Level NEG Ur Amphetamine/Methamphetamine NEG MDMA (Ecstasy) Screen NEG Urine Benzodiazepines Screen NEG Urine Cocaine Metabolite NEG Urine Marijuana (THC) NEG Bedside Glucose 200 mg/dl 125 mg/dl White Blood Count 1.88 K/uL Red Blood Count 3.69 M/uL Hemoglobin 9.8 g/dL Hematocrit 29.6 % Mean Corpuscular Volume 80.2 fL Mean Corpuscular Hemoglobin 26.6 pg Mean Corpuscular Hemoglobin Concent 33.1 g/dl RDW Standard Deviation 61.1 fL RDW Coefficient of Variation 20.9 % Platelet Count 57 K/uL Mean Platelet Volume 9.7 fL Sodium Level 141 mmol/L Potassium Level 3.7 mmol/L Chloride Level 109 mmol/L Carbon Dioxide Level 25 mmol/L Anion Gap 7.0 mmol/L Blood Urea Nitrogen 8 mg/dl Creatinine 0.56 mg/dl Est Creatinine Clear Calc Drug Dose 114.5 ml/min Estimated GFR () 114.2 Estimated GFR (Non- 98.5 BUN/Creatinine Ratio 14.8 Random Glucose 121 mg/dl Calcium Level 7.9 mg/dl Test 07/30/17 11:54 07/30/17 17:10 Bedside Glucose 203 mg/dl 135 mg/dl Assessment and Plan Altered Mental Status Likey from over medication from narcotics. Doubt hepatic encephalopathy as aptient improved before lactulose took effect. Patient has improved will continue with PHYSICAL THERAPY however, given poor ambulation. Uncontrolled pain Improved given that patient is taking 5mg of oxycodone and it appears to be enough. Outpatient, she was taking 10mg of oxycodone with 160 tablets. Chronic Hepatic encephalopathy Patient has h/o cirrhosis. Ammonia is elevated. Will order lactulose orally. If she is not able to tolerate it, will try ng tube. will moniotr patient mental status in the afternoon opiod abuse Patient appears to have been cut off by PCP in June 05 (last script). Patient likely had meds for up to a month so she should have stopped around jul 06. However we are not sure at the time. will discuss case with PCP to see why she was "cut off". cellulitis in left lower extremity s/p ORIF of left hip STOPPED ANTIBIOTIC AFTER ORTHO INPUT, which I agree with, given she does not have erythema, warmth. Anemia will monitor dvt proph: scd. UPDATE: 17:00 culture showed gram negative bacilli, resumed rocephin. consult ID. Continued [facility] stay due to: ambulation difficulties (Patient is lethargic.) Discharge planning: uncertain
[2017-07-30 21:34] VITALS: BP 121/74; PULSE 89
[2017-07-30] MEDS: CEFTRIAXONE SOD INJ 1 GM in DEXTROSE 5% ADD-VANTAGE 50ML 50 ML IV SCH (21:35)
[2017-07-30] MEDS: INSULIN GLARGINE SOLOSTAR 100 UNITS/ML 3 ML PEN SC SCH (21:44)
[2017-07-30 23:35] VITALS: BP 110/71; PULSE 98; TEMP 36.9; O2SAT 94
[2017-07-31] MEDS: CLONIDINE HCL 0.1 MG TAB PO SCH ×4 (03:00→22:21)
[2017-07-31 03:10] VITALS: BP 98/57; PULSE 96; O2SAT 94
[2017-07-31 07:02] VITALS: BP 106/66; PULSE 96; TEMP 36.8; O2SAT 94
[2017-07-31 07:37] LABS: HEMATOCRIT 27.7 % (37-47); MEAN CELL VOLUME 79.8 fL (80-100); MEAN CORPUSCULAR HEMOGLOBIN 25.9 pg (25-34); MEAN CORPUSCULAR HGB CONC 32.5 g/dl (32-36); MEAN PLATELET VOLUME 9.9 fL (7.4-10.4); PLATELET COUNT 68 K/uL (130-400); RED BLOOD COUNT 3.47 M/uL (4.2-5.4); WHITE BLOOD COUNT 1.97 K/uL (4.8-10.8)
[2017-07-31] MEDS: OXYCODONE HCL IR 5 MG TAB (IMMEDIATE RELEASE) PO PRN ×2 (07:42→17:20)
[2017-07-31 08:23] LABS: BUN/CREATININE RATIO 14.3 (10-20); CALCIUM 7.8 mg/dl (8.5-10.1); CREATININE 0.67 mg/dl (0.60-1.20); POTASSIUM 3.8 mmol/L (3.5-5.1)
[2017-07-31] MEDS: FLUTICASONE PROPIONATE NA SPR 16 GM BTL NAE SCH (09:00)
[2017-07-31] MEDS: PANTOprazole SOD 40 MG TAB PO SCH ×2 (09:14→22:22)
[2017-07-31] MEDS: VENLAFAXINE HCL XR 150 MG CAPXR PO SCH (09:14)
[2017-07-31] MEDS: VENLAFAXINE HCL XR 75 MG CAPXR PO SCH (09:15)
[2017-07-31] MEDS: METOPROLOL SUCC 25MG EXT REL TAB PO SCH (09:15)
[2017-07-31] MEDS: LEVETIRACETAM 500 MG TAB PO SCH ×2 (09:17→22:24)
[2017-07-31] MEDS: SPIRONOLACTONE 100 MG TAB PO SCH (09:20)
[2017-07-31] MEDS: CALCIUM 600MG + VIT D 400 IU TAB PO SCH ×3 (09:21→22:23)
[2017-07-31] MEDS: POTASSIUM CHLORIDE 10 MEQ TABCR PO SCH ×2 (09:22→22:24)
[2017-07-31] MEDS: INSULIN ASPART 100 UNITS/ML 3 ML PEN SC SCH ×4 (09:26→22:29)
[2017-07-31] MEDS: GABAPENTIN 100 MG CAP PO SCH ×3 (09:29→22:23)
[2017-07-31] MEDS: FUROSEMIDE 20 MG TAB PO SCH (09:29)
[2017-07-31] MEDS: RIFAXIMIN TAB 550 MG TAB PO SCH ×2 (09:29→22:23)
[2017-07-31] MEDS: MAGNESIUM OXIDE 400 MG TAB PO SCH ×2 (09:29→22:22)
[2017-07-31 09:35] LABS: ANISOCYTOSIS PRESENT; BASO ABS # 0.02 K/uL (0-0.2); COMPLETE YES; EOS % 2.5 %; HYPERSEGMENTED POLYS 1+; IG% 0.5 %; LYMPH % 36.5 %; LYMPH ABS # 0.72 K/uL (1.2-3.4); MICROCYTOSIS PRESENT; MONO % 21.3 %; NEUT % 38.2 %
--- NOTE | 2017-07-31 10:02 | Oncology Consultation ---
Oncology/Heme Consultation Date of Consultation: Jul 31, 2017. Attending Physician: Silverio Rizo M.D. Reason for Consultation: Pancytopenia History of Present Illness Ms. 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 On 07/10, she underwent ORIF for a left intertrochanteric hip fracture. She was discharged around 07/16 and was readmitted 3 days ago with altered mental status. She was in tremendous pain and had been taking narcotics. She also had an elevated ammonia on admission. She had some drainage from her left hip wound that was cultured on the day of admission, though the result just came back yesterday as positive for multiple organisms, including Proteus. She had been empirically on ceftriaxone, which was stopped after a few days. It was restarted late yesterday when the proteus was identified. Since admission, she has been pancytopenic. Her platelets have been low for many years, dating back to the early days of her cirrhosis, and have declined in the last 4 years or so into the 40-60 range on average. Her platelets this admission are in this range. Her hemoglobin is 9 today. Prior to her surgery, she had a hemoglobin of 12-14, with some variation and a mildly low MCV. She has had isolated episodes of anemia in the past, but generally is in this 12-14 range. Since her surgery, her hemoglobin has been lower and has been in the 9-10 since post-op day 3. She denies any active bleeding, stool changes, or hematemesis/coffee ground emesis. Her WBCs are more variable. In general, she trends on the low side (3-4), but for much of 2016 had a normal WBC count (in the 6s). In 2016, she was treated for her HCV infection with Harvoni. Per the patient, she has apparently relapsed. That being said, her WBCs immediately pre-op were normal. They went up in the acute post-operatively period and have been low ever since, though they are more markedly low during this admission (now just below 2K). I do not have a differential from the last 48 hours, but previously her differential was normal. Past Medical/Surgical History Medical Problems: (1) Acute exacerbation of chronic low back pain Status: Acute (2) Anxiety Status: Acute (3) Back pain Status: Acute (4) Cellulitis of left lower extremity Status: Acute (5) Chronic abdominal pain Status: Acute (6) Chronic diarrhea Status: Acute (7) Complaints of total body pain Status: Acute (8) Contusion of multiple sites Status: Acute (9) Dehydration Status: Acute (10) Elevated bilirubin Status: Acute (11) Episodic overuse of medication Status: Acute (12) Facial pain Status: Acute (13) Fatigue Status: Acute (14) Hallucinations Status: Acute (15) Headache Status: Acute (16) Hyperglycemia Status: Acute (17) Hyperglycemia Status: Acute (18) Left hip pain Status: Acute (19) Migraine Status: Acute (20) Migraine Status: Acute (21) Migraine Status: Acute (22) Migraine Status: Acute (23) Migraine Status: Acute (24) Migraine Status: Acute (25) Migraine Status: Acute (26) Opioid withdrawal Status: Acute (27) Pancytopenia Status: Acute (28) Paranoia Status: Acute (29) Post-op pain Status: Acute (30) Pyelonephritis Status: Acute (31) Renal colic on left side Status: Acute (32) S/P ORIF (open reduction internal fixation) fracture Status: Acute (33) Skin tear Status: Acute (34) Thrombocytopenia Status: Acute (35) Vomiting Status: Acute Family History Adopted Social History Smoking Status: Former Smoker Drug Use: none Marital Status: Housing Status: lives with friends Occupation Status: disabled Allergies Coded Allergies: Coconut (Verified Allergy, Unknown, ANAPHYLAXIS, 05/11/17) Modafinil (Verified Adverse Reaction, Severe, MAKES HYPER, 05/11/17) Sulfamethoxazole (Verified Adverse Reaction, Intermediate, PT STATES NOT GOOD FOR LIVER, 05/11/17) PT STATES (NOT GOOD FOR LIVER) Zolpidem (Verified Adverse Reaction, Intermediate, LIVER PROBLEMS, 05/11/17 ) Morphine (Verified Adverse Reaction, Mild, hallucinations, 05/11/17) Home Medications Scheduled Calcium Carbonate-Vitamin D W/ (Caltrate 600 Plus), 1 TABLET PO TID Cranberry (Vaccinium Macrocarp (Cranberry), 500 MG PO DAILY Enoxaparin (Lovenox), 40 MG SQ DAILY Fluticasone Propionate (Fluticasone Propionate), 2 SPRAYS KODY DAILY Furosemide (Furosemide), 20 MG PO DAILY Gabapentin (Gabapentin), 100 MG PO TID Insulin Aspart (Novolog), 12 UNITS SQ TIDM Insulin Glargine (Lantus Solostar), 70 UNITS SQ HS Lansoprazole (Prevacid), 30 MG PO BID Levetiracetam (Levetiracetam), 1,000 MG PO BID Magnesium Oxide (Mag-Ox), 400 MG PO BID Metoprolol Succinate (Metoprolol Succinate ER), 12.5 MG PO DAILY Pantoprazole (Protonix), 40 MG PO BID Potassium Chloride (Micro-K Ext Rel), 10 MEQ PO BID Rifaximin (Xifaxan), 550 MG PO BID Spironolactone (Aldactone), 50 MG PO QAM Venlafaxine Hcl (Effexor Extended Rel), 150 MG PO DAILY Scheduled PRN Bisacodyl (Bisacodyl), 5 MG PO DAILY PRN for constipation Dicyclomine Hcl (Dicyclomine Hcl), 10 MG PO TID PRN for CRAMPING Hydrocortisone (Hydrocortisone), 1 APPLN TOP TID PRN for UNDECIDED Lactulose (Lactulose), 30 GM PO DAILY PRN for Constipation Current Inpatient Medications Current Inpatient Medications Medications (Trade) Dose Ordered Sig/Alyse Route Start Time Stop Time Status Last Admin Dose Admin Clonidine HCl (Catapres Tab) 0.1 mg Q6H PO 07/29/17 03:00 08/28/17 02:59 07/31/17 09:17 0.1 MG Ondansetron HCl (Zofran Inj) 4 mg Q6H PRN IV 07/29/17 01:30 08/28/17 01:29 Bisacodyl (Dulcolax Tab) 5 mg DAILY PRN PO 07/29/17 01:30 08/28/17 01:29 Calcium/Vitamin D (Caltrate Plus Tab) 1 tab TID PO 07/29/17 09:00 08/28/17 08:59 07/31/17 09:21 1 TAB Dicyclomine HCl (Bentyl Cap) 10 mg TID PRN PO 07/29/17 01:30 08/28/17 01:29 Fluticasone Propionate (Flonase Nasal [place]) 2 sprays DAILY KODY 07/29/17 09:00 10/13/17 08:59 Furosemide (Lasix Tab) 20 mg DAILY PO 07/29/17 09:00 08/28/17 08:59 07/31/17 09:29 20 MG Gabapentin (Neurontin Cap) 100 mg TID PO 07/29/17 09:00 08/28/17 08:59 07/31/17 09:29 100 MG Hydrocortisone (Hydrocortisone 2.5% Crm) 1 appln TID PRN EXT 07/29/17 01:30 08/28/17 01:29 Lactulose (Chronulac Syrup) 30 gm DAILY PRN PO 07/29/17 01:30 08/28/17 01:29 Magnesium Oxide (Mag-Ox Tab) 400 mg BID PO 07/29/17 09:00 08/28/17 08:59 07/31/17 09:29 400 MG Metoprolol Succinate (Toprol Xl Tab) 12.5 mg DAILY PO 07/29/17 09:00 08/28/17 08:59 07/31/17 09:15 12.5 MG Pantoprazole Sodium (Protonix Tab) 40 mg BID PO 07/29/17 09:00 08/28/17 08:59 07/31/17 09:14 40 MG Potassium Chloride (Klor-Con M10) 10 meq BID PO 07/29/17 09:00 08/28/17 08:59 07/31/17 09:22 10 MEQ Rifaximin (Xifaxan Tab) 550 mg BID PO 07/29/17 09:00 08/28/17 08:59 07/31/17 09:29 550 MG Levetiracetam (Keppra Tab) 1,000 mg BID PO 07/29/17 09:00 08/28/17 08:59 07/31/17 09:17 1,000 MG Spironolactone (Aldactone Tab) 50 mg QAM PO 07/29/17 09:00 08/28/17 08:59 07/31/17 09:20 50 MG Glucose (Glucose 40% Gel) 15-30 GRAMS 15 GRAMS... UD PRN PO 07/29/17 01:30 08/28/17 01:29 Glucose (Glucose Chew Tab) 4-8 Tablets 4 Tabl... UD PRN PO 07/29/17 01:30 08/28/17 01:29 Dextrose (Dextrose 50% 50ML Syringe) 25-50ML OF 50% DW IV FOR... UD PRN IV 07/29/17 01:30 08/28/17 01:29 Glucagon (Glucagon Inj) 1 mg UD PRN SQ 07/29/17 01:30 08/28/17 01:29 Miscellaneous Information (Consult Glycemic Management Pharmacy) 1 ea UD PRN N/A 07/29/17 02:33 08/28/17 02:32 Insulin Aspart (novoLOG ASPART) SLIDING SCALE G... ACHS SC 07/29/17 17:15 08/28/17 17:14 07/31/17 09:26 9 UNITS Oxycodone HCl (Roxicodone Immediate Rel Tab) 5 mg Q8H PRN PO 07/30/17 00:00 08/13/17 00:00 07/31/17 07:42 5 MG Venlafaxine HCl (effeXOR EXTENDED REL CAP) 150 mg DAILY PO 07/31/17 09:00 08/28/17 08:59 07/31/17 09:14 150 MG Venlafaxine HCl (effeXOR EXTENDED REL CAP) 75 mg DAILY PO 07/31/17 09:00 08/30/17 08:59 07/31/17 09:15 75 MG Insulin Glargine (Lantus Solostar Pen) 20 units HS SC 07/30/17 21:00 08/29/17 20:59 07/30/17 21:44 20 UNITS Ceftriaxone Sodium 1 gm/ Dextrose 50 ml @ 100 mls/hr Q24H IV 07/30/17 20:00 08/09/17 19:59 07/30/17 21:35 100 MLS/HR Review of Systems Constitutional: + fatigue, No fever, No chills ENT: No unusual epistaxis Respiratory: No cough, No hemoptysis Cardiovascular: No chest pain Abdomen: No pain, No nausea, No GI bleeding Genitourinary - Female: No dysuria, No hematuria Hematologic / Lymphatic: + problem reported (scattered bruising) Physical Exam Date Time Temp Pulse Resp B/P (MAP) Pulse Ox O2 Delivery O2 Flow Rate FiO2 07/31/17 07:02 36.8 96 17 106/66 (79) 94 Room Air 07/31/17 03:10 96 16 98/57 (71) 94 Room Air 07/30/17 23:36 Room Air 07/30/17 23:35 36.9 98 20 110/71 (84) 94 Room Air 07/30/17 21:34 89 121/74 (90) 07/30/17 15:15 Nasal Cannula 2.0 07/30/17 15:13 36.8 95 18 104/63 (77) 94 Room Air 07/30/17 14:29 93 97 07/30/17 14:29 90 94/54 (67) General Appearance: no apparent distress, + pertinent finding (chronically ill) Eyes: EOMI, sclerae normal (anicteric) Respiratory/Chest: lungs clear Cardiovascular: regular rate, rhythm Abdomen/GI: non tender, soft Extremities/Musculoskelatal: + pertinent finding (Her left hip wound has some very minimal redness but no apparent drainage. The joint is not tender or warm. ) 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: alert, oriented x 3 Skin: + pertinent finding (scattered senile purpura) Laboratory Results Last 24 Hours Test 07/30/17 11:54 07/30/17 17:10 07/30/17 20:58 07/31/17 06:40 Bedside Glucose 203 mg/dl 135 mg/dl 151 mg/dl White Blood Count 1.97 K/uL Red Blood Count 3.47 M/uL Hemoglobin 9.0 g/dL Hematocrit 27.7 % Mean Corpuscular Volume 79.8 fL Mean Corpuscular Hemoglobin 25.9 pg Mean Corpuscular Hemoglobin Concent 32.5 g/dl Platelet Count 68 K/uL Mean Platelet Volume 9.9 fL Neutrophils (%) (Auto) 38.2 % Lymphocytes (%) (Auto) 36.5 % Monocytes (%) (Auto) 21.3 % Eosinophils (%) (Auto) 2.5 % Basophils (%) (Auto) 1.0 % Neutrophils # (Auto) 0.75 K/uL Lymphocytes # (Auto) 0.72 K/uL Monocytes # (Auto) 0.42 K/uL Eosinophils # (Auto) 0.05 K/uL Basophils # (Auto) 0.02 K/uL RDW Standard Deviation 59.7 fL RDW Coefficient of Variation 20.5 % Immature Granulocyte % (Auto) 0.5 % Immature Granulocyte # (Auto) 0.01 K/uL Hypersegmented Polys 1+ Anisocytosis PRESENT Microcytosis PRESENT Sodium Level 138 mmol/L Potassium Level 3.8 mmol/L Chloride Level 107 mmol/L Carbon Dioxide Level 26 mmol/L Anion Gap 5.0 mmol/L Blood Urea Nitrogen 10 mg/dl Creatinine 0.67 mg/dl Est Creatinine Clear Calc Drug Dose 95.7 ml/min Estimated GFR () 107.7 Estimated GFR (Non- 92.9 BUN/Creatinine Ratio 14.3 Random Glucose 128 mg/dl Calcium Level 7.8 mg/dl Total Bilirubin 2.2 mg/dl Direct Bilirubin 1.4 mg/dl Aspartate Amino Transf (AST/SGOT) 67 U/L Alanine Aminotransferase (ALT/SGPT) 23 U/L Alkaline Phosphatase 199 U/L Total Protein 5.5 gm/dl Albumin 1.5 gm/dl Test 07/31/17 08:19 Bedside Glucose 116 mg/dl Assessment & Plan Ms. Carlin is a 62 year old woman with chronic HCV cirrhosis complicated by thrombocytopenia and hepatic encephalopathy. She underwent an ORIF in late June for a left intertrochanteric hip fracture. Since then, she has been anemic. Her WBCs have also fallen recently, though they were more variable in the past. I am consulted regarding pancytopenia. Her cytopenias are multifactorial and likely caused by different issues. Her thrombocytopenia is stable and clearly related to her liver disease. Her anemia correlates nicely with her surgery and is likely related to operative blood loss. Post-operative anemia can take several months to resolve, particularly in patients with abnormal marrow function, which she certainly has. She does not appear to be obviously bleeding and her hemoglobin has been stable since the immediate post- op period, which also argues against ongoing blood loss. Her MCV is slightly low , but her ferritin was normal. That being said, iron supplementation can sometimes accelerate recovery from operative blood loss, so an oral iron supplement would be reasonable. I also ordered an LDH and haptoglobin to rule out hemolysis, given her HCV. As far as her leukocytosis, it is the most marked and most recent change. It is likely related to marrow suppression, either from her surgery, the antibiotics, or her hip infection. Her HCV is also likely contributing. I requested a CBC with differential to assess her neutrophils. If her counts continue to fall, we may need to consider further evaluation, though I would be hesitant to pursue bone marrow biopsy in her unless necessary. We will continue to follow and I would advise daily CBCs.
[2017-07-31] MEDS ORDERED: VANCOMYCIN INJ 1,000 MG in SODIUM CHLORIDE 0.9% 250ML 250 ML IV ONE (10:07)
--- NOTE | 2017-07-31 10:43 | Orthopedic Progress Note ---
Orthopedic Progress Note Date of Service Jul 31, 2017. Subjective Additional Notes: Pt sitting in chair. Having some hip pain today. No other complaints. Objective Left hip wound looking ok today. Wound edges with light erythema but looks good. Minimal to no drainage noted. Thigh with swelling but soft. Mild tenderness. Date Time Temp Pulse Resp B/P (MAP) Pulse Ox O2 Delivery O2 Flow Rate FiO2 07/31/17 07:02 36.8 96 17 106/66 (79) 94 Room Air 07/31/17 03:10 96 16 98/57 (71) 94 Room Air 07/30/17 23:36 Room Air 07/30/17 23:35 36.9 98 20 110/71 (84) 94 Room Air 07/30/17 21:34 89 121/74 (90) 07/30/17 15:15 Nasal Cannula 2.0 07/30/17 15:13 36.8 95 18 104/63 (77) 94 Room Air 07/30/17 14:29 93 97 07/30/17 14:29 90 94/54 (67) Laboratory Results 24 Hours: Test 07/31/17 06:40 07/31/17 09:53 White Blood Count 1.97 K/uL Red Blood Count 3.47 M/uL Hemoglobin 9.0 g/dL Hematocrit 27.7 % Mean Corpuscular Volume 79.8 fL Mean Corpuscular Hemoglobin 25.9 pg Mean Corpuscular Hemoglobin Concent 32.5 g/dl 33.0 g/dl Platelet Count 68 K/uL Mean Platelet Volume 9.9 fL Neutrophils (%) (Auto) 38.2 % Lymphocytes (%) (Auto) 36.5 % Monocytes (%) (Auto) 21.3 % Eosinophils (%) (Auto) 2.5 % Basophils (%) (Auto) 1.0 % Neutrophils # (Auto) 0.75 K/uL Lymphocytes # (Auto) 0.72 K/uL Monocytes # (Auto) 0.42 K/uL Eosinophils # (Auto) 0.05 K/uL Basophils # (Auto) 0.02 K/uL Assessment & Plan Assessment: s/p Left IM Troch Nail Jul 09 with mild draining wound. Wound Cx with organisms noted Plan: Discussed case with ID/MED teams. Will continue IV antibx as per ID Team. Doubt deep infection at this time. xrays of hip look benign. Continue to follow wound If worsens, consider I&D
[2017-07-31 10:58] LABS: HEMATOCRIT 32.1 % (37-47); MEAN CELL VOLUME 79.3 fL (80-100); MEAN CORPUSCULAR HEMOGLOBIN 26.2 pg (25-34); RED BLOOD COUNT 4.05 M/uL (4.2-5.4); WHITE BLOOD COUNT 2.21 K/uL (4.8-10.8)
[2017-07-31 11:02] LABS: MEAN PLATELET VOLUME 9.9 fL (7.4-10.4); PLATELET COUNT 80 K/uL (130-400)
--- NOTE | 2017-07-31 11:09 | Progress Note ---
Progress Note Date of Service Jul 31, 2017. Progress Note ID Consult Dictated #[id number] A/P: 1. Post op hip infection - polymicrobial -Doubt deep infection, no surgery planned for now -will continue current abx for now, pending ID/sensitivity strep species -If strep species is pcn sensitive, would suggest augmentin 875mg po bid x 28 days -Discussed with ortho -thank you
--- NOTE | 2017-07-31 11:35 | INFECT. DISEASE CONSULTATION ---
DATE OF CONSULTATION: 07/31/2017 DATE OF CONSULTATION: 07/31/2017 REQUESTING PHYSICIAN: Dr. Morrow. HISTORY OF PRESENT ILLNESS: This is a 62-year-old female who was admitted to the hospital with worsening left hip pain. She did suffer a fracture on 07/09/2017 and did have repair of this at that time. She was at rehab but was discharged home. Upon arriving at home, she reportedly had worsening pain in her hip. She took a significant amount of narcotics and was subsequently admitted to the hospital. On my examination, she is out of bed to chair and complaining of significant pain in her left hip with movement. She has had no pain when at rest. She denies any fevers or chills. It was noted in the Emergency Room and she had serous drainage from the wound and a wound culture was obtained. The results of this are growing proteus, gram positive lindsey and strep species, which is yet to be identified. The proteus is pansensitive. She was placed on empiric antibiotics consisting of vancomycin and Rocephin on admission to the hospital and she remains on these antibiotics. She did have blood cultures on the and those are negative to date. She has been afebrile since admission to the hospital. Her white blood cell count has been low throughout this admission. Repeat blood work is pending for today. Her creatinine has been stable. Her LFTs have been mildly elevated. She is being followed by psych as well as orthopedic surgery. I did speak with orthopedic surgery this morning and there is no plan for additional OR unless she has clinical worsening. Her sed rate and CRP have been within normal limits. She denies any chest pain, cough, shortness of breath, nausea, vomiting or diarrhea. She is tolerating antibiotics well. She denies any antibiotic allergies. All remaining review of systems are reviewed and are unremarkable except or as noted above. PAST MEDICAL HISTORY: Significant for history of hep C with liver cirrhosis, previously treated with Harvoni, seizure disorder, migraines, COPD, cirrhosis, type 2 diabetes, asthma, COPD, chronic opiate abuse, hepatic encephalopathy, hypertension, diabetic neuropathy, osteoporosis and portal hypertension. PAST SURGICAL HISTORY: Significant for cholecystectomy, lumbar surgery, reconstruction of her nose and recent left hip fracture repair on 07/09/2017. FAMILY HISTORY: Noncontributory. SOCIAL HISTORY: Significant for history of tobacco use. She currently denies any tobacco use. She does have a history of opioid dependence. ALLERGIES: INCLUDE MORPHINE, BACTRIM, AND AMBIEN. However, she denies antibiotic allergies on my examination. MEDICATIONS: Include vancomycin, Effexor, Lantus, Rocephin, Roxicodone, insulin, calcium, Flonase, Lasix, Neurontin, magnesium, Toprol-XL, Protonix, potassium, rifaximin, Keppra, Aldactone, clonidine, Zofran, Dulcolax, Bentyl, hydrocortisone cream, lactulose. PHYSICAL EXAMINATION: VITAL SIGNS: She is afebrile, pulse 96, respiratory rate 17, blood pressure 106/66. Oxygen saturation is 94% on room air. GENERAL: She is awake, alert and oriented x3. She is in no acute distress. Mucous membranes are moist. Extraocular muscles are intact. She does appear older than stated age. HEART: Regular. LUNGS: Clear with decreased breath sounds. ABDOMEN: Soft. EXTREMITIES: There is no lower extremity edema. She does have significant pain upon movement of the hip. Dressing is intact. LABORATORY STUDIES: CBC today reveals a white blood cell count of 1.9, hemoglobin 9, platelets are 68. Chemistry panel reveals a sodium of 138, potassium 3.8, chloride 107, bicarb 26, BUN 10, creatinine 0.6, glucose is 116, AST 67, ALT is 23. Sed rate was 3. CRP on admission was 1.1 and ammonia level was elevated at 64 on admission. Blood cultures on the 12th are no growth to date x2 sets. Hip incision is growing proteus which is pansensitive and a strep species. Lower extremity ultrasound in the ER shows no DVT. X-ray of the hip showed no malalignment. Chest x-ray in the ER showed no acute findings. ASSESSMENT AND PLAN: Superficial postop wound infection which is polymicrobial. At this time, I will maintain broad-spectrum antibiotics pending final cultures and identification of her strep species. If she does grow strep that is sensitive to penicillin or enterococcus that is sensitive to penicillin my recommendation would be to give a course of Augmentin; however, final cultures are pending and final recommendations on antibiotics will be given at that time. Thank you for this consultation.
[2017-07-31 11:47] LABS: ANISOCYTOSIS PRESENT; BASO % 1.8 %; BASO ABS # 0.04 K/uL (0-0.2); COMPLETE YES; EOS % 2.3 %; IG% 0.5 %; LYMPH % 25.8 %; LYMPH ABS # 0.57 K/uL (1.2-3.4); MONO % 24.4 %; NEUT % 45.2 %
--- NOTE | 2017-07-31 13:33 | Clinical Documentation Query ---
QUERY 1 OF [address] JULIEN, In your clinical opinion is this patient being managed for: ( ) Superficial postoperative wound infection in the setting of recent ORIF ( ) Not Agree ( ) Other explanation of clinical findings (Please Explain) ( ) Unable to determine (Please Define) ( ) Need to Discuss The medical record reflects the following clinical findings, treatment, and risk factors. Clinical Indicators: Wound culture from L hip incision shows proteus mirabilis, anaerobic gram positive bacilli, strep species Treatment:IV rocephin, ID consult, orthopedic consult Risk Factors: recent L hip fracture with repair, COPD, DM QUERY 2 OF 2 In your clinical opinion is this patient being managed for: ( ) Toxic encephalopathy likely due to narcotics ( ) Not Agree ( ) Other explanation of clinical findings (Please Explain) ( ) Unable to determine (Please Define) ( ) Need to Discuss The medical record reflects the following clinical findings, treatment, and risk factors. Clinical Indicators: Documentation reflects altered mental status likely from over use of narcotics. Treatment: control narcotic dosing (ordered q 8 hr prn), Risk Factors: hx of opioid abuse, suspected access to significant quantities of oxycodone Acute toxic encephalopathy reflects a global cerebral dysfunction of rapid onset (typically days or weeks), and may be associated with alterations in the level of consciousness. The neurotoxins that produce acute encephalopathy interfere with basic cell functions in the brain. Most of these agents gain entry because they are highly lipid soluble and can readily cross membranes. The causative agents include organic solvents, some gases (e.g., carbon monoxide), heavy metals, and exposure to drugs. The clinical manifestations depend on the neurotoxin and the intensity of exposure, and can range from mild euphoria with a normal examination, to stupor, seizure, coma, and even . In general, the greater the exposure, the more severe the impairment of cerebral function and consciousness The treatment of diffuse acute encephalopathy is primarily supportive, starting with removal of the exposure source. For most of the neurotoxins that act diffusely on the brain, recovery from acute exposure is complete Please clarify and document your clinical opinion in the progress notes and discharge summary. Terms such as "probable", "suspected", "likely", "questionable", "possible", or "still to be ruled out" are acceptable. IF IN AGREEMENT, YOU MUST DOCUMENT ABOVE DIAGNOSTIC STATEMENT IN DAILY PROGRESS NOTES AND DISCHARGE SUMMARY. This document is not part of the patient's record. Thank You, Chelsea Cleary RN [phone]
--- NOTE | 2017-07-31 14:36 | Gastrointestinal Consultation ---
Gastrointestinal Consultation Date of Consultation: Jul 31, 2017 Attending Physician: Silverio Rizo Consulting Physician: Ebony Do Reason for Consultation: HCV cirrhosis History of Present Illness Patient is a 62 year old female currently admitted for L hip pain s/p L hip fracture IM pinning 07/09; found to have pancytopenia, L hip wound infections. She is suspected to have opioid withdrawal at time of admission as well. Services following pt include: Psych, Infectious Disease, Ortho, Heme/Onc. GI consulted for pt's hx of Hep C, cirrhosis. She was previously followed for these by Dr. Garcia but hasn't had any f/u since 2013. On her previous admission, she was seen by ALEENA Conroy and Dr. Hernandez from our practice and there was a note that said pt now follows Dr. Verma for her liver disease. Today she tells me she's "alone", not seeing anyone from GI. Pt had previous episode of hepatic encephalopathy, suspected to be from opioid use. Never had complications of ascites or edema build up, SBP, esophageal varices. She had hx of gastric ulcer in 2005 which has healed. Denies any abd distension, leg swelling. Most recent abd imaging was CT abd/pelvis 09/2016 showing cirrhotic morphology but no hepatic masses. Her LFTs showed mild Tbili and AST elevation but it's stable if not slightly improved Tbili from baseline ( 2 compared to 4). She denies any ETOH, tobacco or illicit drug uses for "years". Past Medical/Surgical History Medical Problems: (1) Acute exacerbation of chronic low back pain Status: Acute (2) Anxiety Status: Acute (3) Back pain Status: Acute (4) Cellulitis of left lower extremity Status: Acute (5) Chronic abdominal pain Status: Acute (6) Chronic diarrhea Status: Acute (7) Complaints of total body pain Status: Acute (8) Contusion of multiple sites Status: Acute (9) Dehydration Status: Acute (10) Elevated bilirubin Status: Acute (11) Episodic overuse of medication Status: Acute (12) Facial pain Status: Acute (13) Fatigue Status: Acute (14) Hallucinations Status: Acute (15) Headache Status: Acute (16) Hyperglycemia Status: Acute (17) Hyperglycemia Status: Acute (18) Left hip pain Status: Acute (19) Migraine Status: Acute (20) Migraine Status: Acute (21) Migraine Status: Acute (22) Migraine Status: Acute (23) Migraine Status: Acute (24) Migraine Status: Acute (25) Migraine Status: Acute (26) Opioid withdrawal Status: Acute (27) Pancytopenia Status: Acute (28) Paranoia Status: Acute (29) Post-op pain Status: Acute (30) Pyelonephritis Status: Acute (31) Renal colic on left side Status: Acute (32) S/P ORIF (open reduction internal fixation) fracture Status: Acute (33) Skin tear Status: Acute (34) Thrombocytopenia Status: Acute (35) Vomiting Status: Acute Past Medical History: Medical Problems: Hepatitis C with liver cirrhosis - previously on Harvoni Seizure disorder - Generalized convulsive epilepsy Migraines COPD Cirrhosis Type 2 Diabetes Hx Pyelonephritis Asthma/Chronic obstructive lung disease Chronic opiate use Hepatic encephalopathy Hypertension Diabetic peripheral autonomic neuropathy Chronic migraines Osteoporosis Peripheral edema Portal Hypertension Past Surgical History: Past Surgical History: s/p cholecystectomy s/p lumbar kyphoplasty - 2002 L3, 2010 L2 s/p lumbar laminectomy - 2003 s/p reconstruction nose Family History Adopted Social History Smoking Status: Former Smoker Alcohol Use: none, other Drug Use: none Marital Status: Housing Status: lives with friends Occupation Status: disabled Allergies Coded Allergies: Coconut (Verified Allergy, Unknown, ANAPHYLAXIS, 05/11/17) Modafinil (Verified Adverse Reaction, Severe, MAKES HYPER, 05/11/17) Sulfamethoxazole (Verified Adverse Reaction, Intermediate, PT STATES NOT GOOD FOR LIVER, 05/11/17) PT STATES (NOT GOOD FOR LIVER) Zolpidem (Verified Adverse Reaction, Intermediate, LIVER PROBLEMS, 05/11/17 ) Morphine (Verified Adverse Reaction, Mild, hallucinations, 05/11/17) Current Medications Home Meds and Scripts Medications Dose Route/Sig Max Daily Dose Days Date Category Dose Instructions Lovenox (Enoxaparin Sodium) 40 Mg/0.4 Ml Inj 40 Mg SQ DAILY 07/28/17 Reported Lantus Solostar (Insulin Glargine) 100 Unit/Ml Inj 70 Units SQ HS 07/28/17 Reported Novolog (Insulin Aspart) 100 Units/Ml Inj 12 Units SQ TIDM 07/28/17 Reported INJECT 12 UNITS THREE TIMES DAILY WITH MEALS Dicyclomine Hcl 10 Mg Cap 10 Mg PO TID PRN 30 07/28/17 Reported Mag-Ox (Magnesium Oxide) 400 Mg Tab 400 Mg PO BID 07/28/17 Reported Protonix (Pantoprazole Sodium) 40 Mg Tab 40 Mg PO BID 07/28/17 Reported Lactulose 30 Gm/45 Ml Syrp 30 Gm PO DAILY PRN 30 07/16/17 Rx Titrate to having at least 1-2 BMs per day Hydrocortisone 90 Appln/30 Gm Cr 1 Appln TOP TID PRN 07/09/17 Reported Levetiracetam 1,000 Mg Tab 1,000 Mg PO BID 07/09/17 Reported Bisacodyl 5 Mg Tab 5 Mg PO DAILY PRN 05/11/17 Reported Micro-K Ext Rel (Potassium Chloride) 10 Meq Cap 10 Meq PO BID 02/03/16 Reported Effexor Extended Rel (Venlafaxine Hcl) 150 Mg Cap 150 Mg PO DAILY 11/19/15 Reported Metoprolol Succinate ER (Metoprolol Succinate) 25 Mg Tabcr 12.5 Mg PO DAILY 10/09/14 Reported Prevacid (Lansoprazole) 30 Mg Cap 30 Mg PO BID 10/09/14 Reported Gabapentin 100 Mg Cap 100 Mg PO TID 10/09/14 Reported Fluticasone Propionate 120 Sprays/6000 Mcg Inha 2 Sprays KODY DAILY 10/09/14 Reported Furosemide 20 Mg Tab 20 Mg PO DAILY 10/09/14 Reported Aldactone (Spironolactone) 50 Mg Tab 50 Mg PO QAM 09/06/14 Reported Caltrate 600 Plus (Calcium Carbonate-Vitamin D W/) 1 Tab Tab 1 Tablet PO TID 03/16/13 Reported Cranberry (Cranberry (Vaccinium Macrocarp) 500 Mg Cap 500 Mg PO DAILY 02/12/13 Reported Xifaxan (Rifaximin) 550 Mg Tab 550 Mg PO BID 01/15/12 Reported Review of Systems Constitutional: No fever, No chills Respiratory: No cough, No shortness of breath Cardiac: No chest pain Abdomen: No pain, No nausea, No vomiting Skin: No rash, No itch Physical Exam Date Time Temp Pulse Resp B/P (MAP) Pulse Ox O2 Delivery O2 Flow Rate FiO2 07/31/17 09:00 Room Air 07/31/17 07:02 36.8 96 17 106/66 (79) 94 Room Air 07/31/17 03:10 96 16 98/57 (71) 94 Room Air 07/30/17 23:36 Room Air 07/30/17 23:35 36.9 98 20 110/71 (84) 94 Room Air 07/30/17 21:34 89 121/74 (90) 07/30/17 15:15 Nasal Cannula 2.0 07/30/17 15:13 36.8 95 18 104/63 (77) 94 Room Air 07/30/17 14:29 93 97 07/30/17 14:29 90 94/54 (67) General Appearance: WD/WN, no apparent distress Eyes: normal inspection, PERRL, EOMI Neck: supple, no JVD, trachea midline Respiratory/Chest: normal breath sounds, no respiratory distress, no accessory muscle use Cardiovascular: regular rate, rhythm, no gallop, no murmur Abdomen: normal bowel sounds, non tender, soft Extremities: normal inspection, no pedal edema, no calf tenderness 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: alert, normal mood/affect, oriented x 3 Skin: normal color, no jaundice, no rash Laboratory Results Last 24 Hours Test 07/30/17 17:10 07/30/17 20:58 07/31/17 06:40 07/31/17 08:19 Bedside Glucose 135 mg/dl 151 mg/dl 116 mg/dl White Blood Count 1.97 K/uL Red Blood Count 3.47 M/uL Hemoglobin 9.0 g/dL Hematocrit 27.7 % Mean Corpuscular Volume 79.8 fL Mean Corpuscular Hemoglobin 25.9 pg Mean Corpuscular Hemoglobin Concent 32.5 g/dl Platelet Count 68 K/uL Mean Platelet Volume 9.9 fL Neutrophils (%) (Auto) 38.2 % Lymphocytes (%) (Auto) 36.5 % Monocytes (%) (Auto) 21.3 % Eosinophils (%) (Auto) 2.5 % Basophils (%) (Auto) 1.0 % Neutrophils # (Auto) 0.75 K/uL Lymphocytes # (Auto) 0.72 K/uL Monocytes # (Auto) 0.42 K/uL Eosinophils # (Auto) 0.05 K/uL Basophils # (Auto) 0.02 K/uL RDW Standard Deviation 59.7 fL RDW Coefficient of Variation 20.5 % Immature Granulocyte % (Auto) 0.5 % Immature Granulocyte # (Auto) 0.01 K/uL Hypersegmented Polys 1+ Anisocytosis PRESENT Microcytosis PRESENT Sodium Level 138 mmol/L Potassium Level 3.8 mmol/L Chloride Level 107 mmol/L Carbon Dioxide Level 26 mmol/L Anion Gap 5.0 mmol/L Blood Urea Nitrogen 10 mg/dl Creatinine 0.67 mg/dl Est Creatinine Clear Calc Drug Dose 95.7 ml/min Estimated GFR () 107.7 Estimated GFR (Non- 92.9 BUN/Creatinine Ratio 14.3 Random Glucose 128 mg/dl Calcium Level 7.8 mg/dl Total Bilirubin 2.2 mg/dl Direct Bilirubin 1.4 mg/dl Aspartate Amino Transf (AST/SGOT) 67 U/L Alanine Aminotransferase (ALT/SGPT) 23 U/L Alkaline Phosphatase 199 U/L Total Protein 5.5 gm/dl Albumin 1.5 gm/dl Test 07/31/17 09:53 07/31/17 10:08 07/31/17 11:56 White Blood Count 2.21 K/uL Red Blood Count 4.05 M/uL Hemoglobin 10.6 g/dL Hematocrit 32.1 % Mean Corpuscular Volume 79.3 fL Mean Corpuscular Hemoglobin 26.2 pg Mean Corpuscular Hemoglobin Concent 33.0 g/dl Platelet Count 80 K/uL Mean Platelet Volume 9.9 fL Neutrophils (%) (Auto) 45.2 % Lymphocytes (%) (Auto) 25.8 % Monocytes (%) (Auto) 24.4 % Eosinophils (%) (Auto) 2.3 % Basophils (%) (Auto) 1.8 % Neutrophils # (Auto) 1.00 K/uL Lymphocytes # (Auto) 0.57 K/uL Monocytes # (Auto) 0.54 K/uL Eosinophils # (Auto) 0.05 K/uL Basophils # (Auto) 0.04 K/uL RDW Standard Deviation 59.7 fL RDW Coefficient of Variation 20.5 % Immature Granulocyte % (Auto) 0.5 % Immature Granulocyte # (Auto) 0.01 K/uL Anisocytosis PRESENT Lactate Dehydrogenase 317 U/L Bedside Glucose 206 mg/dl Impression Patient is a 62 year old female admitted for L hip pain s/p fracture IM nailing ; GI consulted for HCV cirrhosis, no signs of liver disease decompensation at this time. MELD 12. Plan - No GI plans for workup at this time. - Will help set up f/u appt in GI clinic for further HCV, cirrhosis management upon her DC. - Monitor CBC, appreciate Heme/onc following as well. I saw and evaluated the patient. She presented with a recent fall. GI is consultative due to a history of cirrhosis from substance abuse and hepatitis C. She is normally followed by our outpatient clinic and was last seen a few years ago. We are asked to help with arranging follow-up. When asked about her last follow-up the patient felt she just didn't want to come into the office. Physical examination No obvious distress No icterus noted No asterixis noted Impression: Patient with a history of cirrhosis from long-standing hepatitis C. She should follow-up with our office as an outpatient in the next few months so we can reestablish care with her. Plan At this time there is no acute needs from our standpoint. Please call with any questions or concerns
[2017-07-31 14:55] VITALS: BP 104/68; PULSE 85; TEMP 36.5; O2SAT 96
[2017-07-31] MEDS: CEFTRIAXONE SOD INJ 1 GM in DEXTROSE 5% ADD-VANTAGE 50ML 50 ML IV SCH (19:49)
[2017-07-31] MEDS ORDERED: VANCOMYCIN INJ 1,000 MG in SODIUM CHLORIDE 0.9% 250ML 250 ML IV SCH (21:00)
--- NOTE | 2017-07-31 22:24 | Progress Note ---
Subjective Date of Service: Jul 31, 2017. Subjective Pt evaluation today including: conversation w/ patient, conversation w/ family , physical exam Patient only complaining of left hip pain. No other complaints. Problem List Medical Problems: (1) Acute exacerbation of chronic low back pain Status: Acute (2) Anxiety Status: Acute (3) Back pain Status: Acute (4) Cellulitis of left lower extremity Status: Acute (5) Chronic abdominal pain Status: Acute (6) Chronic diarrhea Status: Acute (7) Complaints of total body pain Status: Acute (8) Contusion of multiple sites Status: Acute (9) Dehydration Status: Acute (10) Elevated bilirubin Status: Acute (11) Episodic overuse of medication Status: Acute (12) Facial pain Status: Acute (13) Fatigue Status: Acute (14) Hallucinations Status: Acute (15) Headache Status: Acute (16) Hyperglycemia Status: Acute (17) Hyperglycemia Status: Acute (18) Left hip pain Status: Acute (19) Migraine Status: Acute (20) Migraine Status: Acute (21) Migraine Status: Acute (22) Migraine Status: Acute (23) Migraine Status: Acute (24) Migraine Status: Acute (25) Migraine Status: Acute (26) Opioid withdrawal Status: Acute (27) Pancytopenia Status: Acute (28) Paranoia Status: Acute (29) Post-op pain Status: Acute (30) Pyelonephritis Status: Acute (31) Renal colic on left side Status: Acute (32) S/P ORIF (open reduction internal fixation) fracture Status: Acute (33) Skin tear Status: Acute (34) Thrombocytopenia Status: Acute (35) Vomiting Status: Acute Review of Systems Constitutional: No fever, No chills ENT: No hearing loss Respiratory: No cough, No sputum Cardiac: No chest pain, No orthopnea Abdomen: No pain, No nausea Musculoskeletal: No joint pain All Other Systems: Reviewed and Negative Medications Medications (Trade) Dose Ordered Sig/Alyse Route Start Time Stop Time Status Last Admin Dose Admin Venlafaxine HCl (effeXOR EXTENDED REL CAP) 150 mg DAILY PO 07/31/17 09:00 08/28/17 08:59 07/31/17 09:14 150 MG Venlafaxine HCl (effeXOR EXTENDED REL CAP) 75 mg DAILY PO 07/31/17 09:00 08/30/17 08:59 07/31/17 09:15 75 MG Objective Vital Signs Date Time Temp Pulse Resp B/P (MAP) Pulse Ox O2 Delivery O2 Flow Rate FiO2 07/31/17 16:00 Room Air 07/31/17 14:55 36.5 85 16 104/68 (80) 96 Room Air 07/31/17 09:00 Room Air 07/31/17 07:02 36.8 96 17 106/66 (79) 94 Room Air 07/31/17 03:10 96 16 98/57 (71) 94 Room Air 07/30/17 23:36 Room Air 07/30/17 23:35 36.9 98 20 110/71 (84) 94 Room Air Physical Exam General Appearance: WD/WN, no apparent distress Neck: supple, no adenopathy, thyroid normal Cardiovascular: regular rate, rhythm, no edema, no gallop Abdomen: normal bowel sounds, non tender Skin: normal color, warm/dry (left hip wound appears clean) Laboratory Results Last 24 Hours Test 07/31/17 06:40 07/31/17 08:19 07/31/17 09:53 07/31/17 10:08 White Blood Count 1.97 K/uL 2.21 K/uL Red Blood Count 3.47 M/uL 4.05 M/uL Hemoglobin 9.0 g/dL 10.6 g/dL Hematocrit 27.7 % 32.1 % Mean Corpuscular Volume 79.8 fL 79.3 fL Mean Corpuscular Hemoglobin 25.9 pg 26.2 pg Mean Corpuscular Hemoglobin Concent 32.5 g/dl 33.0 g/dl Platelet Count 68 K/uL 80 K/uL Mean Platelet Volume 9.9 fL 9.9 fL Neutrophils (%) (Auto) 38.2 % 45.2 % Lymphocytes (%) (Auto) 36.5 % 25.8 % Monocytes (%) (Auto) 21.3 % 24.4 % Eosinophils (%) (Auto) 2.5 % 2.3 % Basophils (%) (Auto) 1.0 % 1.8 % Neutrophils # (Auto) 0.75 K/uL 1.00 K/uL Lymphocytes # (Auto) 0.72 K/uL 0.57 K/uL Monocytes # (Auto) 0.42 K/uL 0.54 K/uL Eosinophils # (Auto) 0.05 K/uL 0.05 K/uL Basophils # (Auto) 0.02 K/uL 0.04 K/uL RDW Standard Deviation 59.7 fL 59.7 fL RDW Coefficient of Variation 20.5 % 20.5 % Immature Granulocyte % (Auto) 0.5 % 0.5 % Immature Granulocyte # (Auto) 0.01 K/uL 0.01 K/uL Hypersegmented Polys 1+ Anisocytosis PRESENT PRESENT Microcytosis PRESENT Sodium Level 138 mmol/L Potassium Level 3.8 mmol/L Chloride Level 107 mmol/L Carbon Dioxide Level 26 mmol/L Anion Gap 5.0 mmol/L Blood Urea Nitrogen 10 mg/dl Creatinine 0.67 mg/dl Est Creatinine Clear Calc Drug Dose 95.7 ml/min Estimated GFR () 107.7 Estimated GFR (Non- 92.9 BUN/Creatinine Ratio 14.3 Random Glucose 128 mg/dl Calcium Level 7.8 mg/dl Total Bilirubin 2.2 mg/dl Direct Bilirubin 1.4 mg/dl Aspartate Amino Transf (AST/SGOT) 67 U/L Alanine Aminotransferase (ALT/SGPT) 23 U/L Alkaline Phosphatase 199 U/L Total Protein 5.5 gm/dl Albumin 1.5 gm/dl Bedside Glucose 116 mg/dl Lactate Dehydrogenase 317 U/L Test 07/31/17 11:56 07/31/17 16:47 07/31/17 20:00 Bedside Glucose 206 mg/dl 211 mg/dl 215 mg/dl Assessment and Plan Altered Mental Status Likey from over medication from narcotics. Doubt hepatic encephalopathy as aptient improved before lactulose took effect. Patient has improved will continue with PHYSICAL THERAPY however, given poor ambulation. Uncontrolled pain Improved given that patient is taking 5mg of oxycodone and it appears to be enough. Outpatient, she was taking 10mg of oxycodone with 160 tablets. Chronic Hepatic encephalopathy. No acute presentation. Consulted GI given h/o hep c and cirrhosis and no outpatient f/u currently so she can get established now while in the hospital. opiod abuse Patient appears to have been cut off by PCP in June 05 (last script). Patient likely had meds for up to a month so she should have stopped around jul 06. However we are not sure at the time. will discuss case with PCP to see why she was "cut off". cellulitis in left lower extremity s/p ORIF of left hip Consulted ID. Informed ortho of the culture. will monitor and continue current antibiotic Anemia will monitor dvt proph: scd. Continued [facility] stay due to: ambulation difficulties (Patient is lethargic.) Discharge planning: uncertain
[2017-07-31 22:30] VITALS: BP 92/61; PULSE 85
[2017-07-31] MEDS: INSULIN GLARGINE SOLOSTAR 100 UNITS/ML 3 ML PEN SC SCH (22:30)
[2017-07-31 22:58] VITALS: BP 97/63; PULSE 90; TEMP 36.8; O2SAT 93
[2017-08-01] MEDS: OXYCODONE HCL IR 5 MG TAB (IMMEDIATE RELEASE) PO PRN ×3 (02:58→19:09)
[2017-08-01 03:00] VITALS: BP 97/60; PULSE 89
[2017-08-01] MEDS: CLONIDINE HCL 0.1 MG TAB PO SCH ×4 (03:00→22:03)
[2017-08-01 06:44] LABS: HEMATOCRIT 26.5 % (37-47); MEAN CELL VOLUME 79.1 fL (80-100); MEAN CORPUSCULAR HEMOGLOBIN 26.6 pg (25-34); MEAN CORPUSCULAR HGB CONC 33.6 g/dl (32-36); RED BLOOD COUNT 3.35 M/uL (4.2-5.4); WHITE BLOOD COUNT 1.97 K/uL (4.8-10.8)
[2017-08-01 06:47] LABS: PLATELET COUNT 72 K/uL (130-400)
[2017-08-01 07:00] VITALS: BP 149/99; PULSE 90; TEMP 36.8; O2SAT 92
[2017-08-01 07:18] LABS: CREATININE 0.55 mg/dl (0.60-1.20)
[2017-08-01] MEDS: METOPROLOL SUCC 25MG EXT REL TAB PO SCH (09:00)
[2017-08-01] MEDS: FLUTICASONE PROPIONATE NA SPR 16 GM BTL NAE SCH (09:00)
[2017-08-01] MEDS: SPIRONOLACTONE 100 MG TAB PO SCH (09:10)
[2017-08-01] MEDS: CALCIUM 600MG + VIT D 400 IU TAB PO SCH ×3 (09:11→22:03)
[2017-08-01] MEDS: VENLAFAXINE HCL XR 150 MG CAPXR PO SCH (09:12)
[2017-08-01] MEDS: VENLAFAXINE HCL XR 75 MG CAPXR PO SCH (09:12)
[2017-08-01] MEDS: LEVETIRACETAM 500 MG TAB PO SCH ×2 (09:13→22:04)
[2017-08-01] MEDS: POTASSIUM CHLORIDE 10 MEQ TABCR PO SCH ×2 (09:14→22:03)
[2017-08-01] MEDS: MAGNESIUM OXIDE 400 MG TAB PO SCH ×2 (09:14→22:04)
[2017-08-01] MEDS: FUROSEMIDE 20 MG TAB PO SCH (09:14)
[2017-08-01] MEDS: GABAPENTIN 100 MG CAP PO SCH ×3 (09:15→22:03)
[2017-08-01] MEDS: PANTOprazole SOD 40 MG TAB PO SCH ×2 (09:15→22:04)
[2017-08-01] MEDS: RIFAXIMIN TAB 550 MG TAB PO SCH ×2 (09:16→22:04)
[2017-08-01] MEDS: INSULIN ASPART 100 UNITS/ML 3 ML PEN SC SCH ×4 (09:21→22:07)
[2017-08-01 09:40] LABS: HEMATOCRIT 30.8 % (37-47); MEAN CELL VOLUME 80.4 fL (80-100); MEAN CORPUSCULAR HEMOGLOBIN 24.8 pg (25-34); MEAN CORPUSCULAR HGB CONC 30.8 g/dl (32-36); RED BLOOD COUNT 3.83 M/uL (4.2-5.4); WHITE BLOOD COUNT 2.14 K/uL (4.8-10.8)
[2017-08-01 09:44] LABS: MEAN PLATELET VOLUME 9.8 fL (7.4-10.4); PLATELET COUNT 81 K/uL (130-400)
--- NOTE | 2017-08-01 09:59 | Orthopedic Progress Note ---
Orthopedic Progress Note Date of Service Aug 01, 2017. Subjective Reports: feeling well, pain controlled w PO medications, Denies: chest pain, SOB , calf pain Additional Notes: States the hip is still sore but overall feeling better than at admission. Objective calves soft nontender, N/V intact, capillary refill less than 2 sec., incision C /D/I, A&O x3 Left hip: Most proximal incision is clean and dry. No draining areas today. Central scabbed area. No erythema. Induration around the incision but no erythema, streaking, or fluctuance. Date Time Temp Pulse Resp B/P (MAP) Pulse Ox O2 Delivery O2 Flow Rate FiO2 08/01/17 07:00 36.8 90 20 149/99 (116) 92 Room Air 08/01/17 03:00 89 97/60 (72) 08/01/17 01:14 Room Air 07/31/17 22:58 36.8 90 16 97/63 (74) 93 Room Air 07/31/17 22:30 85 92/61 (71) 07/31/17 16:00 Room Air 07/31/17 14:55 36.5 85 16 104/68 (80) 96 Room Air Laboratory Results 24 Hours: Test 07/31/17 09:53 08/01/17 06:12 08/01/17 08:55 White Blood Count 2.21 K/uL Red Blood Count 4.05 M/uL Hemoglobin 10.6 g/dL 8.9 g/dL 9.5 g/dL Hematocrit 32.1 % 26.5 % 30.8 % Mean Corpuscular Volume 79.3 fL Mean Corpuscular Hemoglobin 26.2 pg Mean Corpuscular Hemoglobin Concent 33.0 g/dl Platelet Count 80 K/uL Mean Platelet Volume 9.9 fL Neutrophils (%) (Auto) 45.2 % Lymphocytes (%) (Auto) 25.8 % Monocytes (%) (Auto) 24.4 % Eosinophils (%) (Auto) 2.3 % Basophils (%) (Auto) 1.8 % Neutrophils # (Auto) 1.00 K/uL Lymphocytes # (Auto) 0.57 K/uL Monocytes # (Auto) 0.54 K/uL Eosinophils # (Auto) 0.05 K/uL Basophils # (Auto) 0.04 K/uL Assessment & Plan Assessment: s/p Left IM Troch Nail Jul 09 with previously draining wound. Healed at this time. Wound Cx with organisms noted Plan: Doubt deep infection at this time. xrays of hip look benign. At this time, the patient is doing well and the surgical wound is healing well. Orthopedics will sign off and follow up outpatient as previously scheduled.
--- NOTE | 2017-08-01 10:03 | Consultant Recommendations ---
Building Code Administrator Recommendations Date of Service Aug 01, 2017. Building Code Administrator Recommendations [facility] DISCHARGE INSTRUCTIONS: HIP FRACTURE SELF CARE INSTRUCTIONS: A. You are to ambulate with a walker or crutches for approximately 6 weeks from date of surgery. B. You are WEIGHT BEARING TOLERATED on your operative lower extremity for at least 6 weeks from date of surgery. C. Wear low heeled shoes with non-slip soles D. Be sure that your floors are free of things that could trip you throw rugs, electrical cords, and small objects. Avoid wet and waxed floors, especially with crutches/walker/cane. E. Try to walk several times a day with rest periods between. F. You may shower 48 hours after surgery and get the incision area wet, but DO NOT soak or submerge incision area in water. (No baths, swimming pools, hot tubs ) G. You may have a large, band-aid like dressing over your incision (Aquacel). This will remain on your incision for 7 days, and then can be removed. You CAN shower with this on. If incision is leaking through the dressing, please call the office . H. Do NOT apply soap or any ointment/lotions directly over incision. I. You may use ice as needed to operative site. SPECIAL CARE INSTRUCTIONS: VERY IMPORTANT TO READ AND REVIEW A. You may be at risk for phlebitis or blood clots. a. Wear surgical stockings (LIZET hose) for 2 weeks after surgery to improve circulation and reduce swelling. b. Take LOVENOX 40mg SQ daily for 3 additional weeks or as directed. This is your blood thinner. c. If you are on Coumadin- you will have daily/weekly blood work to monitor your levels. This will be done by either your family physician/ paperhanger pipe (if you are on Coumadin chronically) versus your orthopedic surgeon. Expect a phone call the day of or the day after your blood work is drawn to adjust your dose accordingly. B. There are a few signs you need to watch for after you are home. Call [facility] at [phone] if you experience any of the following: a. If you have a temperature of 101 degrees or higher. b. Sudden increase in pain in your hip not relieved by rest or pain medication. c. Any fluid or drainage from the incision; redness of the incision. d. Shortness of breath or chest pain. B. Please call [facility] at [phone] if you have any questions or concerns about your operation or recovery. C. Call your physician if: a. Temperature is greater than 101 degrees (F). b. Pain is not relieved by prescribed pain medications. c. Increase drainage or redness from incision. d. Unanswered questions or concerns. D. Pain Medication: a. You will be prescribed pain medication upon discharge that should last till your first post-operative appointment. b. If you experience nausea and/or skin rash, discontinue this medication and contact our office for an alternative medication. c. Caution- narcotic pain medication can cause constipation. FOLLOW UP VISIT: Please call [facility] at [phone] to confirm your follow up appointment.
[2017-08-01 10:17] LABS: COD UR NEGATIVE NG/ML (CUTOFF=50); HYDROCOD UR NEGATIVE NG/ML (CUTOFF=50); HYDROMOR UR NEGATIVE NG/ML (CUTOFF=50); MORPHINE UR NEGATIVE NG/ML (CUTOFF=50); NORHYDROCODONE CONF UR NEGATIVE NG/ML (CUTOFF=50); OXYMORPH UR 219 NG/ML (CUTOFF=50)
[2017-08-01] MEDS ORDERED: INSULIN GLARGINE SOLOSTAR 100 UNITS/ML 3 ML PEN SC ONE (12:45)
--- NOTE | 2017-08-01 12:46 | Pharmacy Progress Note ---
Glycemic: Assessment & Plan Date of Service Aug 01, 2017. Assessment & Plan The patient is currently receiving 60 units of insulin per day. BSGs ranging 72 -215 mg/dl over the past 24hrs. Pt is on 70 units of basal insulin at home, will continue to titrate up, as patient is likely basal deficient causing higher BSGs. Pt's BSG is dropping overnight due to correctional insulin. Test 07/31/17 16:47 07/31/17 20:00 08/01/17 08:04 08/01/17 11:46 Bedside Glucose 211 mg/dl (70-90) 215 mg/dl (70-90) 72 mg/dl (70-90) 180 mg/dl (70-90) * Basal insulin: Lantus 10 units x 1 now then Lantus SQ BID based on BSGs: * BSG < 100 - 0 units * BSG 100-180 - 20 units * BSG > 180 - 30 units * Correctional Insulin: Novolog Correction per scale ACHS Goal Range: Low 110 mg/dL - High 140 mg/dL Correction Factor: 18 mg/dL/unit * Prandial insulin: Per carb ratio of 1 unit per 6 grams CHO consumed Pharmacy will continue to monitor patient daily and write orders per [facility] inpatient glycemic control protocol. Thanks. * Please note that the plan above was derived based on current level of insulin resistance and hospital stress. These recommendations are appropriate for inpatient admission only. Plan of care upon discharge will need to be reassessed to avoid potential outpatient hypo/hyperglycemia.
[2017-08-01 15:02] VITALS: BP 95/61; PULSE 100; TEMP 36.9; O2SAT 91
[2017-08-01 17:38] LABS: BUN/CREATININE RATIO 12.1 (10-20); CALCIUM 7.4 mg/dl (8.5-10.1); CREATININE 0.76 mg/dl (0.60-1.20); POTASSIUM 3.7 mmol/L (3.5-5.1)
--- NOTE | 2017-08-01 17:38 | Hospitalist Progress Note ---
Hospitalist Progress Note Date of Service Aug 01, 2017. (Traci Cárdenas PA-C) Subjective Pt evaluation today including: conversation w/ patient, physical exam, chart review, lab review, review of studies, conversation w/ transportation sales consultant, review of inpatient medication list Patient seen and evaluated. No acute events overnight. Patient reporting pain in LLE but improving since admission. Multi-organism growing on Cx Verbalizes no needs or complaints today. Is ambulating but reports she is nervous to walk without assistance. Constitutional: No fever, No chills Respiratory: No shortness of breath Cardiovascular: No chest pain Abdomen: No pain, No nausea, No vomiting Musculoskeletal: + problem reported (LLE pain) Female : No dysuria (Traci Cárdenas PA-C) Medications Current Inpatient Medications Medications (Trade) Dose Ordered Sig/Alyse Route Start Time Stop Time Status Last Admin Dose Admin Clonidine HCl (Catapres Tab) 0.1 mg Q6H PO 07/29/17 03:00 08/28/17 02:59 08/01/17 14:24 0.1 MG Ondansetron HCl (Zofran Inj) 4 mg Q6H PRN IV 07/29/17 01:30 08/28/17 01:29 Bisacodyl (Dulcolax Tab) 5 mg DAILY PRN PO 07/29/17 01:30 08/28/17 01:29 Calcium/Vitamin D (Caltrate Plus Tab) 1 tab TID PO 07/29/17 09:00 08/28/17 08:59 08/01/17 13:25 1 TAB Dicyclomine HCl (Bentyl Cap) 10 mg TID PRN PO 07/29/17 01:30 08/28/17 01:29 07/31/17 22:22 10 MG Fluticasone Propionate (Flonase Nasal [place]) 2 sprays DAILY KODY 07/29/17 09:00 08/28/17 08:59 Furosemide (Lasix Tab) 20 mg DAILY PO 07/29/17 09:00 08/28/17 08:59 08/01/17 09:14 20 MG Gabapentin (Neurontin Cap) 100 mg TID PO 07/29/17 09:00 08/28/17 08:59 08/01/17 13:24 100 MG Hydrocortisone (Hydrocortisone 2.5% Crm) 1 appln TID PRN EXT 07/29/17 01:30 08/28/17 01:29 Lactulose (Chronulac Syrup) 30 gm DAILY PRN PO 07/29/17 01:30 08/28/17 01:29 Magnesium Oxide (Mag-Ox Tab) 400 mg BID PO 07/29/17 09:00 08/28/17 08:59 08/01/17 09:14 400 MG Metoprolol Succinate (Toprol Xl Tab) 12.5 mg DAILY PO 07/29/17 09:00 08/28/17 08:59 07/31/17 09:15 12.5 MG Pantoprazole Sodium (Protonix Tab) 40 mg BID PO 07/29/17 09:00 08/28/17 08:59 08/01/17 09:15 40 MG Potassium Chloride (Klor-Con M10) 10 meq BID PO 07/29/17 09:00 08/28/17 08:59 08/01/17 09:14 10 MEQ Rifaximin (Xifaxan Tab) 550 mg BID PO 07/29/17 09:00 08/28/17 08:59 08/01/17 09:16 550 MG Levetiracetam (Keppra Tab) 1,000 mg BID PO 07/29/17 09:00 08/28/17 08:59 08/01/17 09:13 1,000 MG Spironolactone (Aldactone Tab) 50 mg QAM PO 07/29/17 09:00 08/28/17 08:59 08/01/17 09:10 50 MG Glucose (Glucose 40% Gel) 15-30 GRAMS 15 GRAMS... UD PRN PO 07/29/17 01:30 08/28/17 01:29 Glucose (Glucose Chew Tab) 4-8 Tablets 4 Tabl... UD PRN PO 07/29/17 01:30 08/28/17 01:29 Dextrose (Dextrose 50% 50ML Syringe) 25-50ML OF 50% DW IV FOR... UD PRN IV 07/29/17 01:30 08/28/17 01:29 Glucagon (Glucagon Inj) 1 mg UD PRN SQ 07/29/17 01:30 08/28/17 01:29 Miscellaneous Information (Consult Glycemic Management Pharmacy) 1 ea UD PRN N/A 07/29/17 02:33 08/28/17 02:32 Insulin Aspart (novoLOG ASPART) SLIDING SCALE G... ACHS SC 07/29/17 17:15 08/28/17 17:14 08/01/17 13:21 12 UNITS Oxycodone HCl (Roxicodone Immediate Rel Tab) 5 mg Q8H PRN PO 07/30/17 00:00 08/13/17 00:00 08/01/17 10:50 5 MG Venlafaxine HCl (effeXOR EXTENDED REL CAP) 150 mg DAILY PO 07/31/17 09:00 08/28/17 08:59 08/01/17 09:12 150 MG Venlafaxine HCl (effeXOR EXTENDED REL CAP) 75 mg DAILY PO 07/31/17 09:00 08/30/17 08:59 08/01/17 09:12 75 MG Ceftriaxone Sodium 1 gm/ Dextrose 50 ml @ 100 mls/hr Q24H IV 07/30/17 20:00 08/09/17 19:59 07/31/17 19:49 100 MLS/HR Insulin Glargine (Lantus Solostar Pen) BID SC 08/01/17 21:00 08/31/17 20:59 (Traci Cárdenas PA-C) Objective Vital Signs Date Time Temp Pulse Resp B/P (MAP) Pulse Ox O2 Delivery O2 Flow Rate FiO2 08/01/17 15:02 36.9 100 20 95/61 (72) 91 Room Air 08/01/17 08:00 Room Air 08/01/17 07:00 36.8 90 20 149/99 (116) 92 Room Air 08/01/17 03:00 89 97/60 (72) 08/01/17 01:14 Room Air 07/31/17 22:58 36.8 90 16 97/63 (74) 93 Room Air 07/31/17 22:30 85 92/61 (71) (Traci Cárdenas PA-C) Physical Exam General Appearance: WD/WN, no apparent distress Eyes: sclerae normal ENT: hearing grossly normal Neck: supple, no JVD, trachea midline Respiratory/Chest: lungs clear, normal breath sounds, no respiratory distress, no accessory muscle use Cardiovascular: regular rate, rhythm, no gallop, no murmur Abdomen: normal bowel sounds, non tender, soft Extremities: + pertinent finding (well approximated surgical incisions of LLE; no drainage noted; no erythema) 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iatric: alert Skin: normal color, warm/dry (Traci Cárdenas, SORINC) Laboratory Results Last 24 Hours Test 07/31/17 20:00 08/01/17 06:12 08/01/17 08:04 08/01/17 08:55 Bedside Glucose 215 mg/dl 72 mg/dl White Blood Count 1.97 K/uL 2.14 K/uL Red Blood Count 3.35 M/uL 3.83 M/uL Hemoglobin 8.9 g/dL 9.5 g/dL Hematocrit 26.5 % 30.8 % Mean Corpuscular Volume 79.1 fL 80.4 fL Mean Corpuscular Hemoglobin 26.6 pg 24.8 pg Mean Corpuscular Hemoglobin Concent 33.6 g/dl 30.8 g/dl RDW Standard Deviation 58.3 fL 60.3 fL RDW Coefficient of Variation 20.4 % 20.6 % Platelet Count 72 K/uL 81 K/uL Mean Platelet Volume 10.0 fL 9.8 fL Creatinine 0.55 mg/dl Est Creatinine Clear Calc Drug Dose 116.6 ml/min Estimated GFR () 114.9 Estimated GFR (Non- 99.1 Test 08/01/17 11:46 08/01/17 15:59 Bedside Glucose 180 mg/dl (Traci Cárdenas, AYALA-C) Assessment and Plan Altered Mental Status: Likely Narcotics - RESOLVED - Unlikely hepatic encephalopathy as improvement prior to Lactulose administration LLE Cellulitis S/P ORIF 07/09: Multi-Organism Growth - Ceftriaxone 1 g IV daily with likely conversion to Augmentin - ID following - will await further input before initiation of Augmentin Uncontrolled Pain with Opioid Abuse: - Possible "cut off" by PCP for narcotics - Tolerating Winsome 5 mg Q8H PRN - improved from outpatient 10 mg 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 General Appearance: WD/WN, no apparent distress Eyes: sclerae normal ENT: hearing grossly normal Neck: supple, no JVD, trachea midline Respiratory/Chest: lungs clear, normal breath sounds, no respiratory distress, no accessory muscle use Cardiovascular: regular rate, rhythm, no gallop, no murmur Abdomen: normal bowel sounds, non tender, soft Extremities: + pertinent finding (well approximated surgical incisions of LLE; no drainage noted; no erythema) 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iatric: alert Skin: normal color, warm/dry My exam did not differ from APC. (Silverio Rizo M.D.)
[2017-08-01] MEDS: CEFTRIAXONE SOD INJ 1 GM in DEXTROSE 5% ADD-VANTAGE 50ML 50 ML IV SCH (19:33)
[2017-08-01] MEDS: INSULIN GLARGINE SOLOSTAR 100 UNITS/ML 3 ML PEN SC SCH (22:06)
[2017-08-01 23:30] VITALS: BP 96/60; PULSE 96; TEMP 36.8; O2SAT 93
[2017-08-02] MEDS: CLONIDINE HCL 0.1 MG TAB PO SCH ×4 (03:00→21:00)
[2017-08-02 03:20] VITALS: BP 98/65; PULSE 95
[2017-08-02] MEDS: OXYCODONE HCL IR 5 MG TAB (IMMEDIATE RELEASE) PO PRN ×3 (03:21→21:56)
[2017-08-02 07:03] VITALS: BP 119/78; PULSE 95; TEMP 36.6; O2SAT 92
[2017-08-02 07:32] LABS: HEMATOCRIT 27.3 % (37-47); MEAN CELL VOLUME 78.9 fL (80-100); MEAN CORPUSCULAR HEMOGLOBIN 25.7 pg (25-34); MEAN CORPUSCULAR HGB CONC 32.6 g/dl (32-36); MEAN PLATELET VOLUME 9.9 fL (7.4-10.4); PLATELET COUNT 75 K/uL (130-400); RED BLOOD COUNT 3.46 M/uL (4.2-5.4); WHITE BLOOD COUNT 2.07 K/uL (4.8-10.8)
[2017-08-02 08:16] LABS: BASO ABS # 0.02 K/uL (0-0.2); COMPLETE YES; EOS % 2.9 %; IG% 0.5 %; LYMPH % 40.6 %; LYMPH ABS # 0.84 K/uL (1.2-3.4); MONO % 22.7 %; NEUT % 32.3 %
--- NOTE | 2017-08-02 08:17 | Progress Note ---
Subjective Date of Service: Aug 02, 2017. Subjective afebrile. remains on ctx. culture reviewed, pt with multiple organisms growing, clostriduim, proteus, enterococcus, prevotella. blood cultures remain negative. leukopenic. no overnight events. tolerating abx. Problem List Medical Problems: (1) Acute exacerbation of chronic low back pain Status: Acute (2) Anxiety Status: Acute (3) Back pain Status: Acute (4) Cellulitis of left lower extremity Status: Acute (5) Chronic abdominal pain Status: Acute (6) Chronic diarrhea Status: Acute (7) Complaints of total body pain Status: Acute (8) Contusion of multiple sites Status: Acute (9) Dehydration Status: Acute (10) Elevated bilirubin Status: Acute (11) Episodic overuse of medication Status: Acute (12) Facial pain Status: Acute (13) Fatigue Status: Acute (14) Hallucinations Status: Acute (15) Headache Status: Acute (16) Hyperglycemia Status: Acute (17) Hyperglycemia Status: Acute (18) Left hip pain Status: Acute (19) Migraine Status: Acute (20) Migraine Status: Acute (21) Migraine Status: Acute (22) Migraine Status: Acute (23) Migraine Status: Acute (24) Migraine Status: Acute (25) Migraine Status: Acute (26) Opioid withdrawal Status: Acute (27) Pancytopenia Status: Acute (28) Paranoia Status: Acute (29) Post-op pain Status: Acute (30) Pyelonephritis Status: Acute (31) Renal colic on left side Status: Acute (32) S/P ORIF (open reduction internal fixation) fracture Status: Acute (33) Skin tear Status: Acute (34) Thrombocytopenia Status: Acute (35) Vomiting Status: Acute Objective Vital Signs Date Time Temp Pulse Resp B/P (MAP) Pulse Ox O2 Delivery O2 Flow Rate FiO2 08/02/17 07:03 36.6 95 18 119/78 (92) 92 Room Air 08/02/17 03:20 95 98/65 (76) 08/02/17 00:30 Room Air 08/01/17 23:30 36.8 96 18 96/60 (72) 93 Room Air 08/01/17 16:30 Room Air 08/01/17 15:02 36.9 100 20 95/61 (72) 91 Room Air Laboratory Results Item Value Date Time Blood Culture - Preliminary Resulted 07/28/17 1720 Blood NO GROWTH TO DATE. Blood Culture - Preliminary Resulted 07/28/17 1739 Blood NO GROWTH TO DATE. Gram Stain - Final Resulted 07/28/17 2355 Incision Site Hip , Left Gram Stain - Final Resulted 07/28/17 2355 Incision Site Hip , Left Last 24 Hours Test 08/01/17 08:55 08/01/17 11:46 08/01/17 15:59 08/01/17 17:15 White Blood Count 2.14 K/uL Red Blood Count 3.83 M/uL Hemoglobin 9.5 g/dL Hematocrit 30.8 % Mean Corpuscular Volume 80.4 fL Mean Corpuscular Hemoglobin 24.8 pg Mean Corpuscular Hemoglobin Concent 30.8 g/dl RDW Standard Deviation 60.3 fL RDW Coefficient of Variation 20.6 % Platelet Count 81 K/uL Mean Platelet Volume 9.8 fL Bedside Glucose 180 mg/dl 148 mg/dl Sodium Level 138 mmol/L Potassium Level 3.7 mmol/L Chloride Level 107 mmol/L Carbon Dioxide Level 27 mmol/L Anion Gap 4.0 mmol/L Blood Urea Nitrogen 9 mg/dl Creatinine 0.76 mg/dl Est Creatinine Clear Calc Drug Dose 84.3 ml/min Estimated GFR () 96.1 Estimated GFR (Non- 82.9 BUN/Creatinine Ratio 12.1 Random Glucose 148 mg/dl Calcium Level 7.4 mg/dl Test 08/01/17 20:38 08/02/17 06:06 Bedside Glucose 176 mg/dl White Blood Count 2.07 K/uL Red Blood Count 3.46 M/uL Hemoglobin 8.9 g/dL Hematocrit 27.3 % Mean Corpuscular Volume 78.9 fL Mean Corpuscular Hemoglobin 25.7 pg Mean Corpuscular Hemoglobin Concent 32.6 g/dl Platelet Count 75 K/uL Mean Platelet Volume 9.9 fL RDW Standard Deviation 58.8 fL RDW Coefficient of Variation 20.6 % Assessment and Plan (1) Postoperative wound infection Assessment & Plan: can transition to po agumentin upon d/c. would give 30 days. can follow post d/c. continue local wound care. Continued [facility] stay due to: multiple IV medications needed Discharge planning: rehab hospital
[2017-08-02 08:23] LABS: URINE APPEARANCE CLEAR (CLEAR); URINE BILIRUBIN NEG (NEG); URINE COLOR DK YELLOW; URINE NITRITE NEG (NEG); URINE PH 6.5 (4.5-7.5); URINE SPECIFIC GRAVITY 1.011 (1.000-1.030); UROBILINOGEN NEG (NEG); ZZUR CULT IF INDIC CLEAN CATCH NO
[2017-08-02 08:40] LABS: MANUAL MICROSCOPIC REQUIRED? NO; REVIEW REQ? NO
[2017-08-02] MEDS: FLUTICASONE PROPIONATE NA SPR 16 GM BTL NAE SCH (09:00)
[2017-08-02] MEDS: INSULIN GLARGINE SOLOSTAR 100 UNITS/ML 3 ML PEN SC SCH ×2 (09:00→21:54)
[2017-08-02] MEDS: SPIRONOLACTONE 100 MG TAB PO SCH (09:16)
[2017-08-02] MEDS: CALCIUM 600MG + VIT D 400 IU TAB PO SCH ×3 (09:16→21:55)
[2017-08-02] MEDS: FUROSEMIDE 20 MG TAB PO SCH (09:25)
[2017-08-02] MEDS: METOPROLOL SUCC 25MG EXT REL TAB PO SCH (09:26)
[2017-08-02] MEDS: VENLAFAXINE HCL XR 150 MG CAPXR PO SCH (09:27)
[2017-08-02] MEDS: MAGNESIUM OXIDE 400 MG TAB PO SCH ×2 (09:27→21:55)
[2017-08-02] MEDS: LEVETIRACETAM 500 MG TAB PO SCH ×2 (09:27→21:55)
[2017-08-02] MEDS: VENLAFAXINE HCL XR 75 MG CAPXR PO SCH (09:28)
[2017-08-02] MEDS: GABAPENTIN 100 MG CAP PO SCH ×3 (09:29→21:55)
[2017-08-02] MEDS: PANTOprazole SOD 40 MG TAB PO SCH ×2 (09:29→21:55)
[2017-08-02] MEDS: POTASSIUM CHLORIDE 10 MEQ TABCR PO SCH ×2 (09:29→21:55)
[2017-08-02] MEDS: RIFAXIMIN TAB 550 MG TAB PO SCH ×2 (09:30→21:55)
[2017-08-02] MEDS: INSULIN ASPART 100 UNITS/ML 3 ML PEN SC SCH ×4 (09:34→21:00)
--- NOTE | 2017-08-02 11:14 | Hematology/Oncology Prog Note ---
Hematology/Onc Progress Note Date of Service Aug 02, 2017. Diagnoses Pancytopenia HCV cirrhosis Medications Medications Administered Medications (Trade) Dose Ordered Sig/Alyse Route Start Time Stop Time Status Last Admin Dose Admin Sodium Chloride 1,000 ml @ 999 mls/hr Q1H1M STAT IV 07/28/17 16:39 07/28/17 17:39 DC 07/28/17 16:39 999 MLS/HR Ceftriaxone Sodium (Rocephin Inj) 1 gm NOW STAT IV 07/28/17 19:51 07/28/17 19:52 DC 07/28/17 20:55 1 GM Oxycodone HCl (Roxicodone Immediate Rel Tab) 5 mg ONE STAT PO 07/29/17 01:17 07/29/17 01:37 DC 07/29/17 01:40 5 MG Clonidine HCl (Catapres Tab) 0.1 mg Q6H PO 07/29/17 03:00 08/28/17 02:59 08/02/17 09:17 0.1 MG Calcium/Vitamin D (Caltrate Plus Tab) 1 tab TID PO 07/29/17 09:00 08/28/17 08:59 08/02/17 09:16 1 TAB Dicyclomine HCl (Bentyl Cap) 10 mg TID PRN PO 07/29/17 01:30 08/28/17 01:29 07/31/17 22:22 10 MG Furosemide (Lasix Tab) 20 mg DAILY PO 07/29/17 09:00 08/28/17 08:59 08/02/17 09:25 20 MG Gabapentin (Neurontin Cap) 100 mg TID PO 07/29/17 09:00 08/28/17 08:59 08/02/17 09:29 100 MG Magnesium Oxide (Mag-Ox Tab) 400 mg BID PO 07/29/17 09:00 08/28/17 08:59 08/02/17 09:27 400 MG Metoprolol Succinate (Toprol Xl Tab) 12.5 mg DAILY PO 07/29/17 09:00 08/28/17 08:59 08/02/17 09:26 12.5 MG Pantoprazole Sodium (Protonix Tab) 40 mg BID PO 07/29/17 09:00 08/28/17 08:59 08/02/17 09:29 40 MG Potassium Chloride (Klor-Con M10) 10 meq BID PO 07/29/17 09:00 08/28/17 08:59 08/02/17 09:29 10 MEQ Rifaximin (Xifaxan Tab) 550 mg BID PO 07/29/17 09:00 08/28/17 08:59 08/02/17 09:30 550 MG Venlafaxine HCl (effeXOR EXTENDED REL CAP) 150 mg DAILY PO 07/29/17 09:00 07/30/17 11:03 DC 07/30/17 08:51 150 MG Levetiracetam (Keppra Tab) 1,000 mg BID PO 07/29/17 09:00 08/28/17 08:59 08/02/17 09:27 1,000 MG Levetiracetam (Keppra Tab) 1,000 mg 0230 ONCE PO 07/29/17 02:30 07/29/17 02:40 DC 07/29/17 03:10 1,000 MG Spironolactone (Aldactone Tab) 50 mg QAM PO 07/29/17 09:00 08/28/17 08:59 08/02/17 09:16 50 MG Gabapentin (Neurontin Cap) 100 mg 0230 ONCE PO 07/29/17 02:30 07/29/17 02:40 DC 07/29/17 03:09 100 MG Insulin Glargine (Lantus Solostar Pen) 30 units QAM SC 07/29/17 03:00 07/29/17 15:04 DC 07/29/17 03:27 30 UNITS Insulin Aspart (novoLOG ASPART) SLIDING SCALE G... ACHS DC 07/29/17 03:00 07/29/17 09:26 DC 07/29/17 03:28 5 UNITS Ceftriaxone Sodium 1 gm/ Dextrose 50 ml @ 100 mls/hr Q24H IV 07/29/17 20:00 07/30/17 08:18 DC 07/29/17 20:11 100 MLS/HR Magnesium Sulfate 1 gm/Prmx 100 ml @ 100 mls/hr NOW ONCE IV 07/29/17 08:45 07/29/17 09:44 DC 07/29/17 09:22 100 MLS/HR Lactulose (Chronulac Syrup) 30 gm NOW ONCE PO 07/29/17 12:00 07/29/17 12:01 DC 07/29/17 12:07 30 GM Potassium Phosphate 21 mmol/ Sodium Chloride 507 ml @ 144 mls/hr TODAY@1200 IV 07/29/17 12:00 07/29/17 15:32 DC 07/29/17 12:07 144 MLS/HR Sertraline HCl (Zoloft Tab) 25 mg 1215 ONCE PO 07/29/17 12:15 07/29/17 12:16 DC 07/29/17 12:14 25 MG Insulin Glargine (Lantus Solostar Pen) 15 units HS SC 07/29/17 21:00 07/30/17 14:00 DC 07/29/17 21:51 15 UNITS Insulin Aspart (novoLOG ASPART) SLIDING SCALE G... ACHS SC 07/29/17 17:15 08/28/17 17:14 08/02/17 09:34 2 UNITS Oxycodone HCl (Roxicodone Immediate Rel Tab) 5 mg Q8H PRN PO 07/30/17 00:00 08/13/17 00:00 08/02/17 03:21 5 MG Oxycodone HCl (Roxicodone Immediate Rel Tab) 5 mg 1627 ONCE PO 07/29/17 16:27 07/29/17 16:32 DC 07/29/17 17:04 5 MG Venlafaxine HCl (effeXOR EXTENDED REL CAP) 150 mg DAILY PO 07/31/17 09:00 08/28/17 08:59 08/02/17 09:27 150 MG Venlafaxine HCl (effeXOR EXTENDED REL CAP) 75 mg DAILY PO 07/31/17 09:00 08/30/17 08:59 08/02/17 09:28 75 MG Insulin Glargine (Lantus Solostar Pen) 20 units HS SC 07/30/17 21:00 08/01/17 12:36 DC 07/31/17 22:30 20 UNITS Ceftriaxone Sodium 1 gm/ Dextrose 50 ml @ 100 mls/hr Q24H IV 07/30/17 20:00 08/09/17 19:59 08/01/17 19:33 100 MLS/HR Ceftriaxone Sodium 1 gm/ Dextrose 50 ml @ 100 mls/hr ONE STAT IV 07/30/17 17:32 07/30/17 18:01 DC 07/30/17 18:13 100 MLS/HR Insulin Glargine (Lantus Solostar Pen) 10 units ONE ONCE SC 08/01/17 12:45 08/01/17 12:46 DC 08/01/17 13:22 10 UNITS Insulin Glargine (Lantus Solostar Pen) BID SC 08/01/17 21:00 08/31/17 20:59 08/01/17 22:06 20 UNITS Subjective Ms. Carlin is feeling a bit more comfortable after some pain medicine. Still, she is generally feeling unwell. She remains afebrile and continues to deny any bleeding. Vital Signs Vital Signs Past 12 Hours Date Time Temp Pulse Resp B/P (MAP) Pulse Ox O2 Delivery O2 Flow Rate FiO2 08/02/17 07:45 Room Air 08/02/17 07:03 36.6 95 18 119/78 (92) 92 Room Air 08/02/17 03:20 95 98/65 (76) 08/02/17 00:30 Room Air 08/01/17 23:30 36.8 96 18 96/60 (72) 93 Room Air Physical Exam Constitutional: Level of Distress: NAD, chronically ill Psychiatric: Mental Status: active & alert Eyes: EOM: pertinent finding (anicteric sclerae) ENMT: pharynx normal (no ulcers or purpura) Lungs: Auscuitation: CTA except as noted Cardiovascular: Heart Auscultation: RRR Abdomen: Inspection & Palpation: soft, no tenderness, guarding & rebound Extremities: no edema Laboratory Last 24 Hours Test 08/01/17 11:46 08/01/17 15:59 08/01/17 17:15 08/01/17 20:38 Bedside Glucose 180 mg/dl 148 mg/dl 176 mg/dl Sodium Level 138 mmol/L Potassium Level 3.7 mmol/L Chloride Level 107 mmol/L Carbon Dioxide Level 27 mmol/L Anion Gap 4.0 mmol/L Blood Urea Nitrogen 9 mg/dl Creatinine 0.76 mg/dl Est Creatinine Clear Calc Drug Dose 84.3 ml/min Estimated GFR () 96.1 Estimated GFR (Non- 82.9 BUN/Creatinine Ratio 12.1 Random Glucose 148 mg/dl Calcium Level 7.4 mg/dl Test 08/02/17 06:06 08/02/17 08:00 08/02/17 08:18 White Blood Count 2.07 K/uL Red Blood Count 3.46 M/uL Hemoglobin 8.9 g/dL Hematocrit 27.3 % Mean Corpuscular Volume 78.9 fL Mean Corpuscular Hemoglobin 25.7 pg Mean Corpuscular Hemoglobin Concent 32.6 g/dl Platelet Count 75 K/uL Mean Platelet Volume 9.9 fL Neutrophils (%) (Auto) 32.3 % Lymphocytes (%) (Auto) 40.6 % Monocytes (%) (Auto) 22.7 % Eosinophils (%) (Auto) 2.9 % Basophils (%) (Auto) 1.0 % Neutrophils # (Auto) 0.67 K/uL Lymphocytes # (Auto) 0.84 K/uL Monocytes # (Auto) 0.47 K/uL Eosinophils # (Auto) 0.06 K/uL Basophils # (Auto) 0.02 K/uL RDW Standard Deviation 58.8 fL RDW Coefficient of Variation 20.6 % Immature Granulocyte % (Auto) 0.5 % Immature Granulocyte # (Auto) 0.01 K/uL Urine Color DK YELLOW Urine Appearance CLEAR Urine pH 6.5 Urine Specific [place] 1.011 Urine Protein NEG Urine Glucose (UA) NEG Urine Ketones NEG Urine Occult Blood NEG Urine Nitrite NEG Urine Bilirubin NEG Urine Urobilinogen NEG Urine Leukocyte Esterase NEG Bedside Glucose 72 mg/dl Assessment & Plan Ms. Christensens counts are down some today, particularly her WBCs. She's now moderately neutropenic. Her baseline pancytopenia is secondary to liver disease. The acute drop in her hemoglobin is likely still from her recent orthopedic surgery, with delayed marrow recovery. 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 Still, it is worrisome. She is on a few medications that are associated with either agranulocytosis or pancytopenia , including her antibiotics, the Keppra, and Lasix. She is due to change to Augmentin today, so we will see if that change makes a difference in her counts. Infections also can suppress bone marrow, particularly in the elderly and chronically ill. She has no immature forms in the periphery to suggest marrow infiltration. She also has no evidence of the onset of a hematologic malignancy. If her counts continue to fall, an investigation for viral illnesses (CMV, EBV, HIV) might be reasonable. A bone marrow biopsy would also be a consideration, though I would hold off on that until no other explanation can be found.
--- NOTE | 2017-08-02 11:56 | Psychiatric Progress Notes ---
Psychiatric Progress Note Date of Service Aug 02, 2017. Notes ID: Patient reviewed with liaison nurse. Initial consult by Dr. Villagran on 07/29 CC: "I'm thankful" referring to being here HPI: pleased with care, states mood is good, denies andres ROS: sleeping well, tolerating increase in Effexor XR Current Inpatient Medications Medications (Trade) Dose Ordered Sig/Alyse Route Start Time Stop Time Status Last Admin Dose Admin Clonidine HCl (Catapres Tab) 0.1 mg Q6H PO 07/29/17 03:00 08/28/17 02:59 08/02/17 09:17 0.1 MG Ondansetron HCl (Zofran Inj) 4 mg Q6H PRN IV 07/29/17 01:30 08/28/17 01:29 Bisacodyl (Dulcolax Tab) 5 mg DAILY PRN PO 07/29/17 01:30 08/28/17 01:29 Calcium/Vitamin D (Caltrate Plus Tab) 1 tab TID PO 07/29/17 09:00 08/28/17 08:59 08/02/17 09:16 1 TAB Dicyclomine HCl (Bentyl Cap) 10 mg TID PRN PO 07/29/17 01:30 08/28/17 01:29 07/31/17 22:22 10 MG Fluticasone Propionate (Flonase Nasal [place]) 2 sprays DAILY KODY 07/29/17 09:00 08/28/17 08:59 Furosemide (Lasix Tab) 20 mg DAILY PO 07/29/17 09:00 08/28/17 08:59 08/02/17 09:25 20 MG Gabapentin (Neurontin Cap) 100 mg TID PO 07/29/17 09:00 08/28/17 08:59 08/02/17 09:29 100 MG Hydrocortisone (Hydrocortisone 2.5% Crm) 1 appln TID PRN EXT 07/29/17 01:30 08/28/17 01:29 Lactulose (Chronulac Syrup) 30 gm DAILY PRN PO 07/29/17 01:30 08/28/17 01:29 Magnesium Oxide (Mag-Ox Tab) 400 mg BID PO 07/29/17 09:00 08/28/17 08:59 08/02/17 09:27 400 MG Metoprolol Succinate (Toprol Xl Tab) 12.5 mg DAILY PO 07/29/17 09:00 08/28/17 08:59 08/02/17 09:26 12.5 MG Pantoprazole Sodium (Protonix Tab) 40 mg BID PO 07/29/17 09:00 08/28/17 08:59 08/02/17 09:29 40 MG Potassium Chloride (Klor-Con M10) 10 meq BID PO 07/29/17 09:00 08/28/17 08:59 08/02/17 09:29 10 MEQ Rifaximin (Xifaxan Tab) 550 mg BID PO 07/29/17 09:00 08/28/17 08:59 08/02/17 09:30 550 MG Levetiracetam (Keppra Tab) 1,000 mg BID PO 07/29/17 09:00 08/28/17 08:59 08/02/17 09:27 1,000 MG Spironolactone (Aldactone Tab) 50 mg QAM PO 07/29/17 09:00 08/28/17 08:59 08/02/17 09:16 50 MG Glucose (Glucose 40% Gel) 15-30 GRAMS 15 GRAMS... UD PRN PO 07/29/17 01:30 08/28/17 01:29 Glucose (Glucose Chew Tab) 4-8 Tablets 4 Tabl... UD PRN PO 07/29/17 01:30 08/28/17 01:29 Dextrose (Dextrose 50% 50ML Syringe) 25-50ML OF 50% DW IV FOR... UD PRN IV 07/29/17 01:30 08/28/17 01:29 Glucagon (Glucagon Inj) 1 mg UD PRN SQ 07/29/17 01:30 08/28/17 01:29 Miscellaneous Information (Consult Glycemic Management Pharmacy) 1 ea UD PRN N/A 07/29/17 02:33 08/28/17 02:32 Insulin Aspart (novoLOG ASPART) SLIDING SCALE G... ACHS SC 07/29/17 17:15 08/28/17 17:14 08/02/17 09:34 2 UNITS Oxycodone HCl (Roxicodone Immediate Rel Tab) 5 mg Q8H PRN PO 07/30/17 00:00 08/13/17 00:00 08/02/17 03:21 5 MG Venlafaxine HCl (effeXOR EXTENDED REL CAP) 150 mg DAILY PO 07/31/17 09:00 08/28/17 08:59 08/02/17 09:27 150 MG Venlafaxine HCl (effeXOR EXTENDED REL CAP) 75 mg DAILY PO 07/31/17 09:00 08/30/17 08:59 08/02/17 09:28 75 MG Ceftriaxone Sodium 1 gm/ Dextrose 50 ml @ 100 mls/hr Q24H IV 07/30/17 20:00 08/09/17 19:59 08/01/17 19:33 100 MLS/HR Insulin Glargine (Lantus Solostar Pen) BID SC 08/01/17 21:00 08/31/17 20:59 08/01/17 22:06 20 UNITS Vital Signs Past 12 Hours Date Time Temp Pulse Resp B/P (MAP) Pulse Ox O2 Delivery O2 Flow Rate FiO2 08/02/17 07:45 Room Air 08/02/17 07:03 36.6 95 18 119/78 (92) 92 Room Air 08/02/17 03:20 95 98/65 (76) 08/02/17 00:30 Room Air MSE: tired but cooperative, thoughts concrete but organized, denies SI/HI/andres Imp: schizoaffective disorder, intellectual disability Plan: agree with rec for team to communicate with home health to limit access to medications, no additional recs at this time. Please contact liaison if additional questions/concerns.
[2017-08-02 14:54] VITALS: BP 95/60; PULSE 93; TEMP 36.8; O2SAT 93
--- NOTE | 2017-08-02 18:04 | Hospitalist Progress Note ---
Hospitalist Progress Note Date of Service Aug 02, 2017. (Traci Cárdenas PA-C) Subjective Pt evaluation today including: conversation w/ patient, physical exam, chart review, lab review, review of studies, conversation w/ storage consultant (Dr. Liriano ), review of inpatient medication list Patient seen and evaluated. Reporting good sleep but stating she is hurting all over but L leg remains painful. Initially reluctant to ambulate to bedside commode but CNAs helped patient to walk and she is ambulating well considering. She takes a lot of coaxing to move but does well once moving. Once she calms down from her anxiety/pain she actually looks more comfortable. Agrees she is not strong enough to go home and will need therapy. Afraid of pain and stated that she would just want to walk at therapy. Emphasized the importance of moving that joint to prevent stiffness. ANC worsening. Discussed with Dr. Liriano. Will monitor off IV Abx now that she is converted to oral Constitutional: No fever, No chills Respiratory: No cough, No shortness of breath, No dyspnea at rest Cardiovascular: No chest pain, No palpitations Abdomen: No pain, No nausea, No vomiting, No diarrhea, No constipation Musculoskeletal: + problem reported (L leg pain and edema - worse compared to yesterday) Female : No dysuria (Traci Cárdenas PA-C) Medications Current Inpatient Medications Medications (Trade) Dose Ordered Sig/Alyse Route Start Time Stop Time Status Last Admin Dose Admin Clonidine HCl (Catapres Tab) 0.1 mg Q6H PO 07/29/17 03:00 08/28/17 02:59 08/02/17 14:49 0.1 MG Ondansetron HCl (Zofran Inj) 4 mg Q6H PRN IV 07/29/17 01:30 08/28/17 01:29 Bisacodyl (Dulcolax Tab) 5 mg DAILY PRN PO 07/29/17 01:30 08/28/17 01:29 Calcium/Vitamin D (Caltrate Plus Tab) 1 tab TID PO 07/29/17 09:00 08/28/17 08:59 08/02/17 13:37 1 TAB Dicyclomine HCl (Bentyl Cap) 10 mg TID PRN PO 07/29/17 01:30 08/28/17 01:29 07/31/17 22:22 10 MG Fluticasone Propionate (Flonase Nasal [place]) 2 sprays DAILY KODY 07/29/17 09:00 08/28/17 08:59 Furosemide (Lasix Tab) 20 mg DAILY PO 07/29/17 09:00 08/28/17 08:59 08/02/17 09:25 20 MG Gabapentin (Neurontin Cap) 100 mg TID PO 07/29/17 09:00 08/28/17 08:59 08/02/17 13:37 100 MG Hydrocortisone (Hydrocortisone 2.5% Crm) 1 appln TID PRN EXT 07/29/17 01:30 08/28/17 01:29 Lactulose (Chronulac Syrup) 30 gm DAILY PRN PO 07/29/17 01:30 08/28/17 01:29 Magnesium Oxide (Mag-Ox Tab) 400 mg BID PO 07/29/17 09:00 08/28/17 08:59 08/02/17 09:27 400 MG Metoprolol Succinate (Toprol Xl Tab) 12.5 mg DAILY PO 07/29/17 09:00 08/28/17 08:59 08/02/17 09:26 12.5 MG Pantoprazole Sodium (Protonix Tab) 40 mg BID PO 07/29/17 09:00 08/28/17 08:59 08/02/17 09:29 40 MG Potassium Chloride (Klor-Con M10) 10 meq BID PO 07/29/17 09:00 08/28/17 08:59 08/02/17 09:29 10 MEQ Rifaximin (Xifaxan Tab) 550 mg BID PO 07/29/17 09:00 08/28/17 08:59 08/02/17 09:30 550 MG Levetiracetam (Keppra Tab) 1,000 mg BID PO 07/29/17 09:00 08/28/17 08:59 08/02/17 09:27 1,000 MG Spironolactone (Aldactone Tab) 50 mg QAM PO 07/29/17 09:00 08/28/17 08:59 08/02/17 09:16 50 MG Glucose (Glucose 40% Gel) 15-30 GRAMS 15 GRAMS... UD PRN PO 07/29/17 01:30 08/28/17 01:29 Glucose (Glucose Chew Tab) 4-8 Tablets 4 Tabl... UD PRN PO 07/29/17 01:30 08/28/17 01:29 Dextrose (Dextrose 50% 50ML Syringe) 25-50ML OF 50% DW IV FOR... UD PRN IV 07/29/17 01:30 08/28/17 01:29 Glucagon (Glucagon Inj) 1 mg UD PRN SQ 07/29/17 01:30 08/28/17 01:29 Miscellaneous Information (Consult Glycemic Management Pharmacy) 1 ea UD PRN N/A 07/29/17 02:33 08/28/17 02:32 Insulin Aspart (novoLOG ASPART) SLIDING SCALE G... ACHS SC 07/29/17 17:15 08/28/17 17:14 08/02/17 13:35 4 UNITS Oxycodone HCl (Roxicodone Immediate Rel Tab) 5 mg Q8H PRN PO 07/30/17 00:00 08/13/17 00:00 08/02/17 13:36 5 MG Venlafaxine HCl (effeXOR EXTENDED REL CAP) 150 mg DAILY PO 07/31/17 09:00 08/28/17 08:59 08/02/17 09:27 150 MG Venlafaxine HCl (effeXOR EXTENDED REL CAP) 75 mg DAILY PO 07/31/17 09:00 08/30/17 08:59 08/02/17 09:28 75 MG Insulin Glargine (Lantus Solostar Pen) BID SC 08/01/17 21:00 08/31/17 20:59 08/01/17 22:06 20 UNITS Amoxicillin/ Clavulanate Potassium (Augmentin Tab) 875 mg BIDM PO 08/02/17 17:45 09/01/17 08:31 (Traci Cárdenas, KIRSTEN) Objective Vital Signs Date Time Temp Pulse Resp B/P (MAP) Pulse Ox O2 Delivery O2 Flow Rate FiO2 08/02/17 15:40 Room Air 08/02/17 14:54 36.8 93 20 95/60 (72) 93 Room Air 08/02/17 07:45 Room Air 08/02/17 07:03 36.6 95 18 119/78 (92) 92 Room Air 08/02/17 03:20 95 98/65 (76) 08/02/17 00:30 Room Air 08/01/17 23:30 36.8 96 18 96/60 (72) 93 Room Air (Traci Cárdenas PA-C) Physical Exam General Appearance: no apparent distress, + mild distress (initially due to pain but resolves easily), + pertinent finding (chronically ill-appearing) Eyes: sclerae normal ENT: hearing grossly normal Neck: supple, no JVD, trachea midline Respiratory/Chest: lungs clear, normal breath sounds, no respiratory distress, no accessory muscle use Cardiovascular: regular rate, rhythm, no gallop, no murmur Abdomen: normal bowel sounds, non tender, soft Extremities: + swelling (edema of LLE > RLL; surgical incision sites intact without erythema/drainage) 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iatric: alert Skin: normal color, warm/dry (Traci Cárdenas PA-C) Laboratory Results Last 24 Hours Test 08/01/17 20:38 08/02/17 06:06 08/02/17 08:00 08/02/17 08:18 Bedside Glucose 176 mg/dl 72 mg/dl White Blood Count 2.07 K/uL Red Blood Count 3.46 M/uL Hemoglobin 8.9 g/dL Hematocrit 27.3 % Mean Corpuscular Volume 78.9 fL Mean Corpuscular Hemoglobin 25.7 pg Mean Corpuscular Hemoglobin Concent 32.6 g/dl Platelet Count 75 K/uL Mean Platelet Volume 9.9 fL Neutrophils (%) (Auto) 32.3 % Lymphocytes (%) (Auto) 40.6 % Monocytes (%) (Auto) 22.7 % Eosinophils (%) (Auto) 2.9 % Basophils (%) (Auto) 1.0 % Neutrophils # (Auto) 0.67 K/uL Lymphocytes # (Auto) 0.84 K/uL Monocytes # (Auto) 0.47 K/uL Eosinophils # (Auto) 0.06 K/uL Basophils # (Auto) 0.02 K/uL RDW Standard Deviation 58.8 fL RDW Coefficient of Variation 20.6 % Immature Granulocyte % (Auto) 0.5 % Immature Granulocyte # (Auto) 0.01 K/uL Urine Color DK YELLOW Urine Appearance CLEAR Urine pH 6.5 Urine Specific [place] 1.011 Urine Protein NEG Urine Glucose (UA) NEG Urine Ketones NEG Urine Occult Blood NEG Urine Nitrite NEG Urine Bilirubin NEG Urine Urobilinogen NEG Urine Leukocyte Esterase NEG Test 08/02/17 12:11 08/02/17 13:55 08/02/17 16:59 Bedside Glucose 152 mg/dl 221 mg/dl Stool Occult Blood NEGATIVE (Traci Cárdenas PA-C) Assessment and Plan Altered Mental Status: Likely Narcotics - RESOLVED - Unlikely hepatic encephalopathy as improvement prior to Lactulose administration - Psychiatry following - continue current medications no acute changes -- Recommend outpatient control of narcotics (if to be prescribed more) as she made previous statements of taking multiple pills at once LLE Cellulitis S/P ORIF 07/09: Multi-Organism Growth - Ceftriaxone 1 g IV with conversion to Augmentin today - ID following - plan for 30 days total Abx treatment with follow-up Uncontrolled Pain with Opioid Abuse: - Possible "cut off" by PCP for narcotics - Tolerating Winsome 5 mg Q8H PRN (control wax and wanes) - improved from outpatient 10 mg with the ability to take up to 60 mg daily 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 Liriano - will monitor now off IV Abx and may be related to chronic conditions and other home meds - would be optimal for D/C Discharge planning: rehab hospital (Traci Cárdenas, PA-C) I agree with above note after discussing case with patient and examining patient. General Appearance: WD/WN, no apparent distress Eyes: sclerae normal ENT: hearing grossly normal Neck: supple, no JVD, trachea midline Respiratory/Chest: lungs clear, normal breath sounds, no respiratory distress, no accessory muscle use Cardiovascular: regular rate, rhythm, no gallop, no murmur Abdomen: normal bowel sounds, non tender, soft Extremities: + pertinent finding (well approximated surgical incisions of LLE; no drainage noted; no erythema) 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iatric: alert Skin: normal color, warm/dry My exam did not differ from APC. (Silverio Rizo M.D.)
[2017-08-02] MEDS: AMOXICILLIN/CLAVULANATE TAB 875 MG TAB PO SCH (18:40)
[2017-08-02 23:52] VITALS: BP 95/61; PULSE 89; TEMP 36.9; O2SAT 92
[2017-08-03] MEDS: CLONIDINE HCL 0.1 MG TAB PO SCH ×4 (03:00→21:00)
[2017-08-03 03:11] VITALS: BP 100/64
[2017-08-03 06:47] VITALS: BP 106/66; PULSE 90; TEMP 36.9; O2SAT 91
[2017-08-03 06:47] LABS: MEAN CELL VOLUME 80.5 fL (80-100); MEAN CORPUSCULAR HEMOGLOBIN 25.3 pg (25-34); MEAN CORPUSCULAR HGB CONC 31.4 g/dl (32-36); MEAN PLATELET VOLUME 8.9 fL (7.4-10.4); PLATELET COUNT 81 K/uL (130-400); RED BLOOD COUNT 3.48 M/uL (4.2-5.4)
[2017-08-03 07:17] LABS: ANISOCYTOSIS PRESENT; BASO % 1.3 %; BASO ABS # 0.03 K/uL (0-0.2); COMPLETE YES; EOS % 3.5 %; GIANT PLATELETS 1+; HYPERSEGMENTED POLYS 1+; LYMPH % 43.5 %; MICROCYTOSIS PRESENT; MONO % 18.3 %; NEUT % 33.4 %
[2017-08-03] MEDS: OXYCODONE HCL IR 5 MG TAB (IMMEDIATE RELEASE) PO PRN ×2 (07:53→16:19)
[2017-08-03] MEDS: AMOXICILLIN/CLAVULANATE TAB 875 MG TAB PO SCH ×2 (08:45→17:51)
[2017-08-03] MEDS: SPIRONOLACTONE 100 MG TAB PO SCH (08:46)
[2017-08-03] MEDS: FLUTICASONE PROPIONATE NA SPR 16 GM BTL NAE SCH (08:46)
[2017-08-03] MEDS: CALCIUM 600MG + VIT D 400 IU TAB PO SCH ×3 (08:47→21:14)
[2017-08-03] MEDS: INSULIN GLARGINE SOLOSTAR 100 UNITS/ML 3 ML PEN SC SCH (09:00)
[2017-08-03] MEDS: VENLAFAXINE HCL XR 75 MG CAPXR PO SCH (09:25)
[2017-08-03] MEDS: RIFAXIMIN TAB 550 MG TAB PO SCH ×2 (09:25→21:14)
[2017-08-03] MEDS: MAGNESIUM OXIDE 400 MG TAB PO SCH ×2 (09:26→21:14)
[2017-08-03] MEDS: LEVETIRACETAM 500 MG TAB PO SCH ×2 (09:26→21:14)
[2017-08-03] MEDS: FUROSEMIDE 20 MG TAB PO SCH (09:27)
[2017-08-03] MEDS: GABAPENTIN 100 MG CAP PO SCH ×3 (09:27→21:14)
[2017-08-03] MEDS: POTASSIUM CHLORIDE 10 MEQ TABCR PO SCH ×2 (09:28→21:14)
[2017-08-03] MEDS: VENLAFAXINE HCL XR 150 MG CAPXR PO SCH (09:28)
[2017-08-03] MEDS: PANTOprazole SOD 40 MG TAB PO SCH ×2 (09:29→21:14)
[2017-08-03] MEDS: METOPROLOL SUCC 25MG EXT REL TAB PO SCH (09:29)
[2017-08-03] MEDS: INSULIN ASPART 100 UNITS/ML 3 ML PEN SC SCH ×4 (09:34→22:19)
--- NOTE | 2017-08-03 10:51 | Pharmacy Progress Note ---
Glycemic Control Progress Note Date of Service Aug 03, 2017. Scope Glycemic Pharmacist consulted for glycemic control to write orders per [facility] inpatient glycemic control protocol. Objective Accuchecks BSG (last 24hrs): Test 08/02/17 12:11 08/02/17 16:59 08/02/17 20:48 08/03/17 07:58 Bedside Glucose 152 mg/dl (70-90) 221 mg/dl (70-90) 134 mg/dl (70-90) 76 mg/dl (70-90) HbA1c: Test 07/29/17 05:47 Hemoglobin A1c 7.4 % (4.5-5.6) H Recent Pertinent Medications The patient is currently receiving: * Basal insulin: Lantus 20 units SQ qHS (received 30 units on 08/01) * Correctional Insulin: Novolog Correction per scale ACHS Goal Range: Low 110 mg/dL - High 140 mg/dL Correction Factor: 18 mg/dL/unit * Prandial insulin: Per carb ratio of 1 unit per 6 grams CHO consumed Outpatient Anti-Diabetic Meds Basal Insulin * Toujeo 70 units SQ qHS Bolus Insulin * Novolog 12 units TID with meals Assessment & Plan ASSESSMENT: * Please see previous progress notes for more background info, in short: * Pt receiving SQ basal bolus insulin regimen for hyperglycemia secondary to baseline DM (outpatient regimen on hold) and stress/infection * Patient is currently receiving an average of 34 units of insulin per day (of note, this is decreased from 60 units on 07/31 & 08/01 d/t decreased oral intake of carbohydrates) * 20 units of basal insulin * 14 units of prandial/correctional insulin * BSGs ranging 72 - 221 mg/dl over the past 24hrs * Changes needed to insulin regimen: * AM Fasting BSG = 76 mg/dl. This is at goal for patient based on inpatient targets and co-morbidities. * Post-prandial BSGs are slightly elevated. PLAN FOR INPATIENT GLYCEMIC CONTROL: * Basal insulin * Lantus 20-25 units SQ BID * Bolus insulin * NovoLog per scale ACHS or Q6hrs while NPO * Goal Range: Low 110 mg/dL - High 140 mg/dL * Correction Factor: 15 mg/dL/unit * Nutritional / Prandial insulin per carb ratio of 1 unit per 5 grams CHO consumed RECOMMENDATIONS FOR DISCHARGE: * Recent A1c of 7.4 indicates adequate outpatient glycemic control * Recommend continuing outpatient regimen on discharge and continue to titrate per outpatient provider * regimen is highly basal weighted - consider redistributing regimen towards goal of 50% basal and 50% bolus if patient is experiencing hypoglycemia overnight or in the morning (Toujeo 55 units SQ HS + Novolog 17 units TIDM) * Please note that the plan above was derived based on current level of insulin resistance and hospital stress. These recommendations are appropriate for inpatient admission only. Plan of care upon discharge will need to be reassessed to avoid potential outpatient hypo/hyperglycemia. Thank you.
--- NOTE | 2017-08-03 11:48 | Hematology/Oncology Prog Note ---
Hematology/Onc Progress Note Date of Service Aug 03, 2017. Diagnoses Pancytopenia secondary to hypersplenism Recent ORIF Mentation changes perhaps secondary to metabolic encephalopathy and pain medicines Medications Medications Administered Medications (Trade) Dose Ordered Sig/Alyse Route Start Time Stop Time Status Last Admin Dose Admin Sodium Chloride 1,000 ml @ 999 mls/hr Q1H1M STAT IV 07/28/17 16:39 07/28/17 17:39 DC 07/28/17 16:39 999 MLS/HR Ceftriaxone Sodium (Rocephin Inj) 1 gm NOW STAT IV 07/28/17 19:51 07/28/17 19:52 DC 07/28/17 20:55 1 GM Oxycodone HCl (Roxicodone Immediate Rel Tab) 5 mg ONE STAT PO 07/29/17 01:17 07/29/17 01:37 DC 07/29/17 01:40 5 MG Clonidine HCl (Catapres Tab) 0.1 mg Q6H PO 07/29/17 03:00 08/28/17 02:59 08/03/17 09:25 0.1 MG Calcium/Vitamin D (Caltrate Plus Tab) 1 tab TID PO 07/29/17 09:00 08/28/17 08:59 08/03/17 08:47 1 TAB Dicyclomine HCl (Bentyl Cap) 10 mg TID PRN PO 07/29/17 01:30 08/28/17 01:29 07/31/17 22:22 10 MG Furosemide (Lasix Tab) 20 mg DAILY PO 07/29/17 09:00 08/28/17 08:59 08/03/17 09:27 20 MG Gabapentin (Neurontin Cap) 100 mg TID PO 07/29/17 09:00 08/28/17 08:59 08/03/17 09:27 100 MG Magnesium Oxide (Mag-Ox Tab) 400 mg BID PO 07/29/17 09:00 08/28/17 08:59 08/03/17 09:26 400 MG Metoprolol Succinate (Toprol Xl Tab) 12.5 mg DAILY PO 07/29/17 09:00 08/28/17 08:59 08/03/17 09:29 12.5 MG Pantoprazole Sodium (Protonix Tab) 40 mg BID PO 07/29/17 09:00 08/28/17 08:59 08/03/17 09:29 40 MG Potassium Chloride (Klor-Con M10) 10 meq BID PO 07/29/17 09:00 08/28/17 08:59 08/03/17 09:28 10 MEQ Rifaximin (Xifaxan Tab) 550 mg BID PO 07/29/17 09:00 08/28/17 08:59 08/03/17 09:25 550 MG Venlafaxine HCl (effeXOR EXTENDED REL CAP) 150 mg DAILY PO 07/29/17 09:00 07/30/17 11:03 DC 07/30/17 08:51 150 MG Levetiracetam (Keppra Tab) 1,000 mg BID PO 07/29/17 09:00 08/28/17 08:59 08/03/17 09:26 1,000 MG Levetiracetam (Keppra Tab) 1,000 mg 0230 ONCE PO 07/29/17 02:30 07/29/17 02:40 DC 07/29/17 03:10 1,000 MG Spironolactone (Aldactone Tab) 50 mg QAM PO 07/29/17 09:00 08/28/17 08:59 08/03/17 08:46 50 MG Gabapentin (Neurontin Cap) 100 mg 0230 ONCE PO 07/29/17 02:30 07/29/17 02:40 DC 07/29/17 03:09 100 MG Insulin Glargine (Lantus Solostar Pen) 30 units QAM SC 07/29/17 03:00 07/29/17 15:04 DC 07/29/17 03:27 30 UNITS Insulin Aspart (novoLOG ASPART) SLIDING SCALE G... ACHS SC 07/29/17 03:00 07/29/17 09:26 DC 07/29/17 03:28 5 UNITS Ceftriaxone Sodium 1 gm/ Dextrose 50 ml @ 100 mls/hr Q24H IV 07/29/17 20:00 07/30/17 08:18 DC 07/29/17 20:11 100 MLS/HR Magnesium Sulfate 1 gm/Prmx 100 ml @ 100 mls/hr NOW ONCE IV 07/29/17 08:45 07/29/17 09:44 DC 07/29/17 09:22 100 MLS/HR Lactulose (Chronulac Syrup) 30 gm NOW ONCE PO 07/29/17 12:00 07/29/17 12:01 DC 07/29/17 12:07 30 GM Potassium Phosphate 21 mmol/ Sodium Chloride 507 ml @ 144 mls/hr TODAY@1200 IV 07/29/17 12:00 07/29/17 15:32 DC 07/29/17 12:07 144 MLS/HR Sertraline HCl (Zoloft Tab) 25 mg 1215 ONCE PO 07/29/17 12:15 07/29/17 12:16 DC 07/29/17 12:14 25 MG Insulin Glargine (Lantus Solostar Pen) 15 units HS SC 07/29/17 21:00 07/30/17 14:00 DC 07/29/17 21:51 15 UNITS Insulin Aspart (novoLOG ASPART) SLIDING SCALE G... ACHS SC 07/29/17 17:15 08/28/17 17:14 08/03/17 09:34 5 UNITS Oxycodone HCl (Roxicodone Immediate Rel Tab) 5 mg Q8H PRN PO 07/30/17 00:00 08/13/17 00:00 08/03/17 07:53 5 MG Oxycodone HCl (Roxicodone Immediate Rel Tab) 5 mg 1627 ONCE PO 07/29/17 16:27 07/29/17 16:32 DC 07/29/17 17:04 5 MG Venlafaxine HCl (effeXOR EXTENDED REL CAP) 150 mg DAILY PO 07/31/17 09:00 08/28/17 08:59 08/03/17 09:28 150 MG Venlafaxine HCl (effeXOR EXTENDED REL CAP) 75 mg DAILY PO 07/31/17 09:00 08/30/17 08:59 08/03/17 09:25 75 MG Insulin Glargine (Lantus Solostar Pen) 20 units HS SC 07/30/17 21:00 08/01/17 12:36 DC 07/31/17 22:30 20 UNITS Ceftriaxone Sodium 1 gm/ Dextrose 50 ml @ 100 mls/hr Q24H IV 07/30/17 20:00 08/02/17 14:27 DC 08/01/17 19:33 100 MLS/HR Ceftriaxone Sodium 1 gm/ Dextrose 50 ml @ 100 mls/hr ONE STAT IV 07/30/17 17:32 07/30/17 18:01 DC 07/30/17 18:13 100 MLS/HR Insulin Glargine (Lantus Solostar Pen) 10 units ONE ONCE SC 08/01/17 12:45 08/01/17 12:46 DC 08/01/17 13:22 10 UNITS Insulin Glargine (Lantus Solostar Pen) BID SC 08/01/17 21:00 08/31/17 20:59 08/02/17 21:54 20 UNITS Amoxicillin/ Clavulanate Potassium (Augmentin Tab) 875 mg BIDM PO 08/02/17 17:45 09/01/17 08:31 08/03/17 08:45 875 MG Subjective She still has pain at the site of the surgery. Otherwise she seems to be doing quite well per Review of Systems: Constitutional: Negative for weight loss, night sweats, or fever Eyes: Negative for event change of vision ENT: Negative for epistaxis, nasal discharge, sore throat, or deafness Cardiovascular: Negative for chest pain, palpitations, dizziness, diaphoresis Respiratory: Negative for new shortness of breath,hemoptysis, or purulent cough Gastrointestinal: Negative for diarrhea, hematemesis, melena, nausea, vomiting , or dyspepsia Integumentary (skin): Negative for rash or jaundice discoloration Genitourinary: Negative for urinary frequency, hematuria, or dysuria Neurological: Negative for weakness, seizure activity, headache, or dizziness Lymphatic/Hematologic: Negative for petechiae, bleeding or new adenopathy Musculoskeletal: Negative for new joint or back pain. As stated continues to have pain at the site of surgery Allergic/Immunologic: Negative for unusual rash or pruritis. Vital Signs Vital Signs Past 12 Hours Date Time Temp Pulse Resp B/P (MAP) Pulse Ox O2 Delivery O2 Flow Rate FiO2 08/03/17 07:40 Room Air 08/03/17 06:47 36.9 90 16 106/66 (79) 91 Room Air 08/03/17 03:11 100/64 (76) 08/02/17 23:55 Room Air 08/02/17 23:52 36.9 89 18 95/61 (72) 92 Room Air Physical Exam Constitutional: vitals are stable. Eyes: Eyes are PREETHI EOMI without conjuctival erythema or icterus. ENT: External examination was negative for masses. Neck: Negative for masses or palpable thyromegaly Respiratory: Lung sounds were generally clear bilaterally Cardiovascular: Heart was RRR without significant murmur, gallops aoe rubs Gastrointestinal: No palpable hepatic or splenomegaly. The abdomen was soft with normal bowel sounds. Lymphatic system: there was no palpable peripheral lymphadenopathy Musculoskeletal System: The musculoskeletal system seemed concordant with age. Skin: The skin was negative for jaundice. Neurologic exam: The exam was negative for any focal findings. Deep tendon reflexes were equal and symmetrical. Psychiatric exam: Was essentially negative with normal mood and effect. Extremities: Negative for significant edema Constitutional: Level of Distress: NAD, chronically ill Psychiatric: Mental Status: active & alert Eyes: EOM: pertinent finding (anicteric sclerae) ENMT: pharynx normal (no ulcers or purpura) Lungs: Auscuitation: CTA except as noted Cardiovascular: Heart Auscultation: RRR Abdomen: Inspection & Palpation: soft, no tenderness, guarding & rebound Extremities: no edema Laboratory Last 24 Hours Test 08/02/17 12:11 08/02/17 13:55 08/02/17 16:59 08/02/17 20:48 Bedside Glucose 152 mg/dl 221 mg/dl 134 mg/dl Stool Occult Blood NEGATIVE Test 08/03/17 05:55 08/03/17 07:58 White Blood Count 2.30 K/uL Red Blood Count 3.48 M/uL Hemoglobin 8.8 g/dL Hematocrit 28.0 % Mean Corpuscular Volume 80.5 fL Mean Corpuscular Hemoglobin 25.3 pg Mean Corpuscular Hemoglobin Concent 31.4 g/dl Platelet Count 81 K/uL Mean Platelet Volume 8.9 fL Neutrophils (%) (Auto) 33.4 % Lymphocytes (%) (Auto) 43.5 % Monocytes (%) (Auto) 18.3 % Eosinophils (%) (Auto) 3.5 % Basophils (%) (Auto) 1.3 % Neutrophils # (Auto) 0.77 K/uL Lymphocytes # (Auto) 1.00 K/uL Monocytes # (Auto) 0.42 K/uL Eosinophils # (Auto) 0.08 K/uL Basophils # (Auto) 0.03 K/uL RDW Standard Deviation 61.0 fL RDW Coefficient of Variation 20.8 % Immature Granulocyte % (Auto) 0.0 % Immature Granulocyte # (Auto) 0.00 K/uL Nucleated RBC Absolute Count (auto) 0.04 K/uL Nucleated Red Blood Cells % 1.9 % Hypersegmented Polys 1+ Giant Platelets 1+ Anisocytosis PRESENT Microcytosis PRESENT Bedside Glucose 76 mg/dl Assessment & Plan Pancytopenia secondary to hypersplenism. Beyond supporting with red cell transfusions as needed little else to offer from our standpoint. We will sign off for now please do not hesitate to reconsult if needed
[2017-08-03] MEDS ORDERED: RXC5 PO (12:28)
[2017-08-03] MEDS ORDERED: AMOX1TAB43 PO (12:28)
[2017-08-03] MEDS ORDERED: CTP1 PO ×2 (12:28→13:11)
[2017-08-03] MEDS ORDERED: EFFSR75 PO (12:28)
--- NOTE | 2017-08-03 13:06 | Discharge Summary ---
Discharge Summary Date of Service Aug 03, 2017. (Valencia Rojas, KRISTEN) Discharge Summary Admission Date: Jul 29, 2017 at 01:43 Discharge Date: Aug 03, 2017 Discharge Disposition: Rehab Principal Diagnosis: LLE cellulitis; opiate withdrawl Problems/Secondary Diagnoses: Altered mental status, likely secondary to narcotics LLE cellulitis s/p ORIF 07/09- multi-organism growth Uncontrolled pain with opioid abuse 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: Pancytopenia with neutropenia P Seizure disorder - Generalized convulsive epilepsy Migraines COPD Type 2 Diabetes Hx Pyelonephritis Asthma/Chronic obstructive lung disease Hepatic encephalopathy Hypertension Diabetic peripheral autonomic neuropathy Chronic migraines Osteoporosis Peripheral edema Portal Hypertension Immunizations: Have You Had Influenza Vaccine: No Influenza Vaccine Date: Sep 25, 2010 History of Tetanus Vaccine?: Yes Tetanus Immunization Date: Sep 25, 2010 History of Pneumococcal: Yes Pneumococcal Date: March 25, 2009 History of Hepatitis B Vaccine: No Procedures: LEFT LOWER EXTREMITY VENOUS DOPPLER CLINICAL HISTORY: Left lower extremity swelling. COMPARISON STUDY: Left lower extremity venous Doppler July 16, 2017. TECHNIQUE: Sonography of the deep venous system of the left lower extremity was performed. Compression and augmentation were evaluated. FINDINGS: The left common femoral, superficial femoral and popliteal veins were compressible. Augmentation was normal. Flow was shown within the deep calf vessels. Left lower extremity edema was incidentally noted. IMPRESSION: No evidence of deep venous thrombus within the left lower extremity. Electronically signed by: Marcos Min M.D. 07/28/2017 7:21 PM Dictated Date/Time: 07/28/2017 7:21 PM The status of this report is Signed. Draft = Not yet reviewed or approved by Radiologist. Signed = Reviewed and approved by Radiologist. CHEST ONE VIEW PORTABLE CLINICAL HISTORY: Fever. Sepsis. COMPARISON STUDY: Chest CT July 09, 2017 and chest radiograph July 05, 2017. FINDINGS: Anterior cervical spine fusion is incidentally noted. No pneumothorax or pleural effusion is present. There is no consolidation to suggest pneumonia. Cardiomediastinal silhouette is normal. IMPRESSION: No acute cardiopulmonary findings. Electronically signed by: Marcos Min M.D. 07/28/2017 5:27 PM Dictated Date/Time: 07/28/2017 5:26 PM The status of this report is Signed. Draft = Not yet reviewed or approved by Radiologist. Signed = Reviewed and approved by Radiologist. LEFT PELVIS/UNILATERAL HIP 1 VIEW CLINICAL HISTORY: 62 years-old Female presenting with h/o recent trochanteric nailing. TECHNIQUE: Single frontal view of the pelvis and frontal and crosstable lateral views of the left hip were obtained. COMPARISON: 07/10/2017 and 07/09/2017. FINDINGS: Intramedullary nail through the proximal left femoral metaphysis and left femoral neck across the intertrochanteric fracture. An interlocking proximal diaphyseal screw also noted. No malalignment. No hardware complication. Deformity of the inferior left pubic ramus suggests age-indeterminate fracture, unchanged from prior radiographs. No gross disruption of the superior pubic ramus is apparent. IMPRESSION: 1. Expected postsurgical appearance of the intertrochanteric left femoral fracture status post internal fixation. No malalignment or hardware complication. 2. Deformity of the left inferior pubic ramus may suggest age-indeterminate fracture, unchanged. Electronically signed by: Flavio Vázquez M.D. 07/29/2017 10:43 AM Dictated Date/Time: 07/29/2017 10:38 AM The status of this report is Signed. Draft = Not yet reviewed or approved by Radiologist. Signed = Reviewed and approved by Radiologist. LEFT HAND 2 VIEWS CLINICAL HISTORY: 62 years-old Female presenting with pain at wrist/fifth metacarpal. TECHNIQUE: Frontal and lateral views of the left hand were obtained. COMPARISON: None. FINDINGS: Intravenous line projects over the radial aspect of the wrist. Osteopenia suggested. Chronic ulnar styloid fracture. Cortical irregularity suggested on lateral view along the volar aspect of the bases of the metacarpals, although no significant abnormalities appreciable on frontal view. No malalignment. No significant soft tissue swelling. IMPRESSION: Questionable cortical defect on lateral view only projecting over the bases of the metacarpals. Dedicated radiographs of the wrist recommended to exclude metacarpal fracture. Electronically signed by: Flavio Vázquez M.D. 08/03/2017 1:17 PM Dictated Date/Time: 08/03/2017 1:14 PM The status of this report is Signed. Draft = Not yet reviewed or approved by Radiologist. Signed = Reviewed and approved by Radiologist. Consultations: Orthopedics Psychiatry ID Hematology/Oncology (Valencia Rojas, KRISTEN) Medication Reconciliation New Medications: Amoxicillin & Pot Clavulanate (Amoxicillin/Clavulanate P) 1 Tab Tab 875 MG PO BIDM for 29 Days, #58 TAB Clonidine HCl (Clonidine HCl) 0.1 Mg Tab 0.1 MG PO BID for 5 Days, #10 TAB Oxycodone HCl (Oxycodone HCl) 5 Mg Tab 5 MG PO Q8H PRN for Pain for 3 Days, #9 TAB Venlafaxine Hcl (Effexor Extended Rel) 75 Mg Capcr 75 MG PO DAILY for 30 Days Continued Medications: Bisacodyl (Bisacodyl) 5 Mg Tab 5 MG PO DAILY PRN for constipation Calcium Carbonate-Vitamin D W/ (Caltrate 600 Plus) 1 Tab Tab 1 TABLET PO TID, TAB Cranberry (Vaccinium Macrocarp (Cranberry) 500 Mg Cap 500 MG PO DAILY Dicyclomine Hcl (Dicyclomine Hcl) 10 Mg Cap 10 MG PO TID PRN for CRAMPING for 30 Days, #90 CAP 3 Refills Enoxaparin (Lovenox) 40 Mg/0.4 Ml Inj 40 MG SQ DAILY, SYR Fluticasone Propionate (Fluticasone Propionate) 120 Sprays/6000 Mcg Inha 2 SPRAYS KODY DAILY Furosemide (Furosemide) 20 Mg Tab 20 MG PO DAILY Gabapentin (Gabapentin) 100 Mg Cap 100 MG PO TID Hydrocortisone (Hydrocortisone) 90 Appln/30 Gm Cr 1 APPLN TOP TID PRN for UNDECIDED Insulin Aspart (Novolog) 100 Units/Ml Inj 12 UNITS SQ TIDM INJECT 12 UNITS THREE TIMES DAILY WITH MEALS Insulin Glargine (Lantus Solostar) 100 Unit/Ml Inj 70 UNITS SQ HS, PEN Lactulose (Lactulose) 30 Gm/45 Ml Syrp 30 GM PO DAILY PRN for Constipation for 30 Days Titrate to having at least 1-2 BMs per day Lansoprazole (Prevacid) 30 Mg Cap 30 MG PO BID Levetiracetam (Levetiracetam) 1,000 Mg Tab 1000 MG PO BID Magnesium Oxide (Mag-Ox) 400 Mg Tab 400 MG PO BID, TAB Metoprolol Succinate (Metoprolol Succinate ER) 25 Mg Tabcr 12.5 MG PO DAILY Pantoprazole (Protonix) 40 Mg Tab 40 MG PO BID Potassium Chloride (Micro-K Ext Rel) 10 Meq Cap 10 MEQ PO BID, CAP Rifaximin (Xifaxan) 550 Mg Tab 550 MG PO BID Spironolactone (Aldactone) 50 Mg Tab 50 MG PO QAM Venlafaxine Hcl (Effexor Extended Rel) 150 Mg Cap 150 MG PO DAILY, CAP Discharge Exam Review of Systems: Constitutional: No fever, No chills, No sweats, No weakness, No fatigue Respiratory: No cough, No shortness of breath, No hemoptysis Cardiovascular: No chest pain, No edema, No palpitations Abdomen: No pain, No nausea, No vomiting, No diarrhea, No constipation Musculoskeletal: No joint pain, No muscle pain, No swelling, No calf pain Genitourinary - Female: No dysuria, No hematuria Neurologic: No weakness, No numbness/tingling Psychiatric: No depression symptoms, No anxiety Hematologic / Lymphatic: No abnormal bleeding/bruising Integumentary: No rash, No itch, No new/changing skin lesions Physical Exam: General Appearance: no apparent distress, + obese Eyes: normal inspection, PERRL ENT: hearing grossly normal Neck: supple Respiratory/Chest: lungs clear, no respiratory distress, no accessory muscle use Cardiovascular: regular rate, rhythm Abdomen / GI: normal bowel sounds, non tender, soft Extremities: no calf tenderness, no pedal edema, + pertinent finding (L hip incision site clean, dry, and w/out erythema or drainage ) 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iatric: alert, normal mood/affect Skin: normal color, warm/dry, no rash (Valencia Rojas, SORINC) Hospital Course Admission H&P: Mrs Carlin is a 62 year old female who presents to the ER with ongoing left hip pain after hip fracture and intertrochanteric nail performed by Dr Urban on Jul 09 2017. She went to rehabilitation in [facility] but was discharged after she was able to ambulate 150 yards. Upon arriving home her pain became increasingly worse and she has been unable to get back out of bed with severe 10 /10 pain. She called her family physician in [place] for a pain medication. As per her home health staff she wanted to "take the whole bottle" of pain medication therefore the medication was never prescribed. She called EMS and was transported to [facility]. In the ER she had a US for DVT. She is under a treatment plan due to chronic opiate use and therefore has not received any pain medication. She was given ceftriaxone for suspected cellulitis and 1L NSS bolus. Physical Exam Vital Signs Date Time Temp Pulse Resp B/P (MAP) Pulse Ox O2 Delivery O2 Flow Rate FiO2 07/29/17 00:28 100 18 146/80 96 Room Air 07/28/17 23:52 96 18 121/69 98 Room Air 07/28/17 22:07 Room Air 07/28/17 22:02 97 18 128/63 95 Room Air 07/28/17 20:55 90 22 125/71 96 Room Air 07/28/17 19:44 92 18 131/67 97 Room Air 07/28/17 18:09 94 Room Air 07/28/17 17:26 98 07/28/17 16:47 37.1 100 18 127/69 99 Room Air General Appearance: + moderate distress (from left hip pain while in the room) , + obese Head: normocephalic, atraumatic Eyes: + pertinent finding (pupils dilated, equal and reactive) Neck: trachea midline Respiratory/Chest: lungs clear, no respiratory distress, no accessory muscle use, + decreased breath sounds (poor inspiratory effort, no wheezing or rales) Cardiovascular: regular rate, rhythm, no murmur, normal peripheral pulses Abdomen/GI: normal bowel sounds, non tender, soft Back: no CVA tenderness Extremities/Musculoskelatal: normal capillary refill, + calf tenderness (left side), + pedal edema (1+ on right, 3+ on left up to her groin), + pertinent finding (clear fluid draining from surgical site from IT nail without surrounding erythema or swelling) 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 (no facial droop), + sensory deficit (Left sided L3, anterior fem cutaneous nerve distribution numbness (she reports having this after her fall, stocking distribution numbness up to her ankles b/l) Skin: + pertinent finding (no cellulitic/erythematous region on left leg as noted in ER notes) Hospital Course: Altered mental status, likely secondary to narcotics- RESOLVED: - Hyperammonemia- treated w/ Lactulose - Psychiatry following - continue current medications no acute changes -- Effexor increased to 225 mg daily -- Recommend outpatient control of narcotics (if to be prescribed more) as she made previous statements of taking multiple pills at once LLE cellulitis s/p ORIF 07/09- multi-organism growth: - Ceftriaxone 1 g IV with conversion to Augmentin on 08/02 x30 days as per ID - Follow-up w/ ID outpatient - Orthopedics consulted- no intervention at this time L hand pain: Hand and wrist x-rays obtained Uncontrolled pain with opioid abuse: - Roxicodone 5 mg q8 hrs PRN for pain management- if needs more pain medication after discharge from [facility], recommend [facility] provider to discuss w/ PCP - Placed on Clonidine 0.1 mg q6 hrs for withdrawal symptoms- decreased to BID at discharge- [facility] to continue and wean; recommend BID x3 days, then daily x2-3 days 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: - Continue Lactulose PRN and Xifaxan 550 mg BID - GI consultation- no acute intervention- establish outpatient F/U Pancytopenia with neutropenia, likely due to liver disease and worsened by acute infection: - Heme/Onc consulted- continue to follow CBC and transfuse PRN - Neutropenic precautions T2DM w/ neuropathy- HgbA1c 7.3%: - Pharmacy consulted for glycemic management while inpatient - Resume outpatient regimen of Lantus 70 u HS and NovoLog 12 u TID at discharge - Gabapentin 100 mg TID HTN: Continue Metoprolol 12.5 mg daily, Aldactone 50 mg daily Seizure disorder: Keppra 1000 mg BID Peripheral edema: Continue Lasix and KCL supplement GI prophylaxis: Protonix 40 mg daily, Prevacid DVT Prophylaxis: SCDs, Lovenox 40 mg SQ x3 weeks per ortho Code status: LEVEL I, FULL Disposition: Discharge to [facility] Total Time Spent: Greater than 30 minutes This includes examination of the patient, discharge planning, medication reconciliation, and communication with other providers. (Valencia Rojas ., PA-C) i personally examined pt and verified all green points w Radha Rojas PAC other than above, also noted she was feeling hand pain. mostly at base of fifth digit notes no prior xrays on this. notes it's making it hard for her to use her walker vitals noted nad breathing unlabored L hand point tenderness at wrist/fifth metacarpal, no open skin, no erythema, no crepitis, but is very tender and very reproducible cellulitis -as above wrist pain - xrays for rehab once approved/available (Freddie Couch, D.Robe.) Discharge Instructions Please refer to the electronic Patient Visit Report (Discharge Instructions) for additional information. (Valencia Rojas ., PA-C) Follow-Up Follow-up with [facility] provider within 24-48 hours Please follow-up with your PCP within 5-7 days after discharge from [facility] Please follow-up with Orthopedics as instructed Follow-up with GI within the next 2-3 months Follow-up with ID within the next 2-4 weeks Please follow-up/keep all of your subspecialty appointments (Valencia Rojas, AYALA-C) Additional Copies To Stacie Fields
--- NOTE | 2017-08-03 13:08 | Discharge Instructions ---
Discharge Instructions Date of Service Aug 03, 2017. Admission Reason for Admission: Left Hip Pain,Opiate Withdrawal Discharge Discharge Diagnosis / Problem: LLE cellulitis;opiate withdrawl Discharge Goals Goal(s): Decrease discomfort, Improve function, Increase independence, Improve disease control, Learn about illness, Diagnostic testing, Therapeutic intervention, Prevent Disease Progression Activity Recommendations Activity Level: Assistance Required Therapies: Physical Therapy, Occupational Therapy As per orthopedics Additional Information Patient informed of condition: Yes Advance Directives: Yes DNR: No Level of Care: Acute Rehab Communicable Disease: No Prognosis: Stable Woodruff Catheter: No Instructions / Follow-Up Instructions / Follow-Up Altered mental status, likely secondary to narcotics- RESOLVED: - Hyperammonemia- treated w/ Lactulose - Psychiatry following - continue current medications no acute changes -- Effexor increased to 225 mg daily -- Recommend outpatient control of narcotics (if to be prescribed more) as she made previous statements of taking multiple pills at once LLE cellulitis s/p ORIF 07/09- multi-organism growth: - Ceftriaxone 1 g IV with conversion to Augmentin on 08/02 x30 days as per ID - Follow-up w/ ID outpatient - Orthopedics consulted- no intervention at this time Uncontrolled pain with opioid abuse: - Roxicodone 5 mg q8 hrs PRN for pain management- if needs more pain medication after discharge from [facility], recommend [facility] provider to discuss w/ PCP - Placed on Clonidine 0.1 mg q6 hrs for withdrawal symptoms- decreased to BID at discharge- [facility] to continue and wean; recommend BID x3 days, then daily x2-3 days 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: - Continue Lactulose PRN and Xifaxan 550 mg BID - GI consultation- no acute intervention- establish outpatient F/U Pancytopenia with neutropenia, likely due to liver disease and worsened by acute infection: - Heme/Onc consulted- continue to follow CBC and transfuse PRN - Neutropenic precautions T2DM w/ neuropathy- HgbA1c 7.3%: - Pharmacy consulted for glycemic management while inpatient - Resume outpatient regimen of Lantus 70 u HS and NovoLog 12 u TID at discharge - Gabapentin 100 mg TID HTN: Continue Metoprolol 12.5 mg daily, Aldactone 50 mg daily Seizure disorder: Keppra 1000 mg BID Peripheral edema: Continue Lasix and KCL supplement GI prophylaxis: Protonix 40 mg daily, Prevacid DVT Prophylaxis: SCDs, Lovenox 40 mg SQ x3 weeks per ortho Code status: LEVEL I, FULL Disposition: Discharge to [facility] FOLLOW-UPS: Follow-up with [facility] provider within 24-48 hours Please follow-up with your PCP within 5-7 days after discharge from [facility] Please follow-up with Orthopedics as instructed Follow-up with GI within the next 2-3 months Follow-up with ID within the next 2-4 weeks Please follow-up/keep all of your subspecialty appointments Current Hospital Diet Patient's current hospital diet: AHA Diet (Heart Healthy), Low Sodium Diet (2gm Na), Diabetes Type 2 Diet Discharge Diet Recommended Diet: AHA Diet (Heart Healthy), Low Sodium Diet (2gm Na), Diabetes Type 2 Diet Pending Studies Studies pending at discharge: no Physician Orders On Transfer Special Precautions: Fall precautions, neutropenic precautions Dressing Changes: Continue routine local wound care to L hip incision site IV Therapy: None Vital Signs: Routine Additional Orders: Repeat CBC in the next 1-2 days POLST Discussion: without POLST completion Laboratory Results Hemoglobin A1c Test 07/29/17 05:47 Range/Units Estimated Average Glucose 166 mg/dl Hemoglobin A1c 7.4 H 4.5-5.6 % Medical Emergencies . Who to Call and When: Medical Emergencies: If at any time you feel your situation is an emergency, please call 911 immediately. . Non-Emergent Contact Non-Emergency issues call your: Primary Care Provider Call Non-Emergent contact if: you have a fever, your pain is not controlled, your pain is worsening, your pain is unusual for you, your pain is concerning you, wound has increased drainage, wound has increased redness, wound has increased pain, you have any medication questions . . "Provider Documentation" section prepared by Valencia Rojas. . Title Insurance Sales Representative Recommendations Title Insurance Sales Representative Recommendations: [facility] DISCHARGE INSTRUCTIONS: HIP FRACTURE SELF CARE INSTRUCTIONS: A. You are to ambulate with a walker or crutches for approximately 6 weeks from date of surgery. B. You are WEIGHT BEARING TOLERATED on your operative lower extremity for at least 6 weeks from date of surgery. C. Wear low heeled shoes with non-slip soles D. Be sure that your floors are free of things that could trip you throw rugs, electrical cords, and small objects. Avoid wet and waxed floors, especially with crutches/walker/cane. E. Try to walk several times a day with rest periods between. F. You may shower 48 hours after surgery and get the incision area wet, but DO NOT soak or submerge incision area in water. (No baths, swimming pools, hot tubs ) G. You may have a large, band-aid like dressing over your incision (Aquacel). This will remain on your incision for 7 days, and then can be removed. You CAN shower with this on. If incision is leaking through the dressing, please call the office . H. Do NOT apply soap or any ointment/lotions directly over incision. I. You may use ice as needed to operative site. SPECIAL CARE INSTRUCTIONS: VERY IMPORTANT TO READ AND REVIEW A. You may be at risk for phlebitis or blood clots. a. Wear surgical stockings (LIZET hose) for 2 weeks after surgery to improve circulation and reduce swelling. b. Take LOVENOX 40mg SQ daily for 3 additional weeks or as directed. This is your blood thinner. c. If you are on Coumadin- you will have daily/weekly blood work to monitor your levels. This will be done by either your family physician/ tire finisher (if you are on Coumadin chronically) versus your orthopedic surgeon. Expect a phone call the day of or the day after your blood work is drawn to adjust your dose accordingly. B. There are a few signs you need to watch for after you are home. Call [facility] at [phone] if you experience any of the following: a. If you have a temperature of 101 degrees or higher. b. Sudden increase in pain in your hip not relieved by rest or pain medication. c. Any fluid or drainage from the incision; redness of the incision. d. Shortness of breath or chest pain. B. Please call [facility] at [phone] if you have any questions or concerns about your operation or recovery. C. Call your physician if: a. Temperature is greater than 101 degrees (F). b. Pain is not relieved by prescribed pain medications. c. Increase drainage or redness from incision. d. Unanswered questions or concerns. D. Pain Medication: a. You will be prescribed pain medication upon discharge that should last till your first post-operative appointment. b. If you experience nausea and/or skin rash, discontinue this medication and contact our office for an alternative medication. c. Caution- narcotic pain medication can cause constipation. FOLLOW UP VISIT: Please call [facility] at [phone] to confirm your follow up appointment. Core Measure Problem Core Measures: None
--- NOTE | 2017-08-03 13:18 | DIAGNOSTIC IMAGING REPORT ---
LEFT HAND 2 VIEWS CLINICAL HISTORY: 62 years-old Female presenting with pain at wrist/fifth metacarpal. TECHNIQUE: Frontal and lateral views of the left hand were obtained. COMPARISON: None. FINDINGS: Intravenous line projects over the radial aspect of the wrist. Osteopenia suggested. Chronic ulnar styloid fracture. Cortical irregularity suggested on lateral view along the volar aspect of the bases of the metacarpals, although no significant abnormalities appreciable on frontal view. No malalignment. No significant soft tissue swelling. IMPRESSION: Questionable cortical defect on lateral view only projecting over the bases of the metacarpals. Dedicated radiographs of the wrist recommended to exclude metacarpal fracture. Electronically signed by: Flavio Vázquez M.D. 08/03/2017 1:17 PM Dictated Date/Time: 08/03/2017 1:14 PM
[2017-08-03 15:10] VITALS: BP 100/64; PULSE 80; TEMP 36.6; O2SAT 94
--- NOTE | 2017-08-03 17:27 | DIAGNOSTIC IMAGING REPORT ---
LEFT WRIST MIN 3 VIEWS ROUTINE CLINICAL HISTORY: 62 years-old Female presenting with ? METACARPAL FX. TECHNIQUE: Frontal, bilateral oblique, and lateral views of the left wrist were obtained. COMPARISON: None. FINDINGS: Osteopenia limits evaluation for nondisplaced fracture. Old ulnar styloid fracture. The previously questionable cortical discontinuity along the volar aspect of the metacarpal bases is again apparent, although there is no donor site or radiolucency across the bases of the metacarpals on frontal or oblique views to suggest a fracture. This appearance may result from overlapping structures. No malalignment. Radiocarpal, intercarpal, and carpometacarpal articulations intact. IMPRESSION: No convincing evidence of an acute fracture allowing for osteopenia. No malalignment. Electronically signed by: Flavio Vázquez M.D. 08/03/2017 5:26 PM Dictated Date/Time: 08/03/2017 5:23 PM
[2017-08-03] MEDS ORDERED: INSULIN GLARGINE SOLOSTAR 100 UNITS/ML 3 ML PEN SC SCH (21:00)
[2017-08-03 22:50] VITALS: BP 96/60; PULSE 83; TEMP 36.7; O2SAT 94
[2017-08-04] MEDS: OXYCODONE HCL IR 5 MG TAB (IMMEDIATE RELEASE) PO PRN ×2 (01:57→10:14)
[2017-08-04 03:00] VITALS: BP 94/60; O2SAT 88
[2017-08-04] MEDS: CLONIDINE HCL 0.1 MG TAB PO SCH ×3 (03:00→14:01)
[2017-08-04 06:17] LABS: HEMATOCRIT 31.8 % (37-47); MEAN CELL VOLUME 80.5 fL (80-100); MEAN CORPUSCULAR HEMOGLOBIN 25.3 pg (25-34); MEAN CORPUSCULAR HGB CONC 31.4 g/dl (32-36); MEAN PLATELET VOLUME 9.8 fL (7.4-10.4); PLATELET COUNT 100 K/uL (130-400); RED BLOOD COUNT 3.95 M/uL (4.2-5.4); WHITE BLOOD COUNT 2.38 K/uL (4.8-10.8)
[2017-08-04 06:51] LABS: CREATININE 0.64 mg/dl (0.60-1.20)
[2017-08-04 06:54] VITALS: BP 103/68; PULSE 88; TEMP 36.8; O2SAT 91
[2017-08-04] MEDS: FLUTICASONE PROPIONATE NA SPR 16 GM BTL NAE SCH (09:00)
[2017-08-04] MEDS: AMOXICILLIN/CLAVULANATE TAB 875 MG TAB PO SCH (09:27)
[2017-08-04] MEDS: CALCIUM 600MG + VIT D 400 IU TAB PO SCH ×2 (09:27→13:22)
[2017-08-04 09:29] VITALS: BP 109/70; PULSE 80
[2017-08-04] MEDS: VENLAFAXINE HCL XR 75 MG CAPXR PO SCH (09:29)
[2017-08-04] MEDS: VENLAFAXINE HCL XR 150 MG CAPXR PO SCH (09:29)
[2017-08-04] MEDS: RIFAXIMIN TAB 550 MG TAB PO SCH (09:30)
[2017-08-04] MEDS: PANTOprazole SOD 40 MG TAB PO SCH (09:30)
[2017-08-04] MEDS: MAGNESIUM OXIDE 400 MG TAB PO SCH (09:31)
[2017-08-04] MEDS: FUROSEMIDE 20 MG TAB PO SCH (09:31)
[2017-08-04] MEDS: POTASSIUM CHLORIDE 10 MEQ TABCR PO SCH (09:33)
[2017-08-04] MEDS: SPIRONOLACTONE 100 MG TAB PO SCH (09:33)
[2017-08-04] MEDS: LEVETIRACETAM 500 MG TAB PO SCH (09:34)
[2017-08-04] MEDS: GABAPENTIN 100 MG CAP PO SCH ×2 (09:35→13:22)
[2017-08-04] MEDS: METOPROLOL SUCC 25MG EXT REL TAB PO SCH (09:36)
[2017-08-04] MEDS: INSULIN ASPART 100 UNITS/ML 3 ML PEN SC SCH ×2 (09:39→13:18)
[2017-08-04 11:51] VITALS: BP 109/70; PULSE 80; TEMP 36.8; O2SAT 91
[2017-08-04 14:00] VITALS: BP 100/66; PULSE 87
[2017-08-04 15:04] VITALS: BP 99/65; PULSE 86; TEMP 36.6; O2SAT 94
[2017-08-23] MEDS ORDERED: TPRSR50 PO (08:44)
[2017-08-23] MEDS ORDERED: RXC5 PO (08:44)
[2017-08-23] MEDS ORDERED: ASPEC81 PO (08:44)
[2017-08-23] MEDS ORDERED: INSDGIPEN SQ (08:44)
== END 2017-08-04 16:30 | DRG 556 ==
LOC: EDBD 16:28 → C.EDA 16:29 → C.MSW 07-29 01:43 → ENRESERV 07-29 01:48
PROVIDERS: ADMIT Internal Medicine; ATTEND Family Medicine
DX: M25.552 Pain in left hip (principal); F11.23 Opioid dependence with withdrawal; L03.116 Cellulitis of left lower limb; D61.818 Other pancytopenia; J44.9 Chronic obstructive pulmonary disease, unspecified; E11.9 Type 2 diabetes mellitus without complications; F17.200 Nicotine dependence, unspecified, uncomplicated; K72.10 Chronic hepatic failure without coma; G40.909 Epilepsy, unspecified, not intractable, without status epilepticus; M81.0 Age-related osteoporosis without current pathological fracture; D73.1 Hypersplenism; Z90.49 Acquired absence of other specified parts of digestive tract; Z79.4 Long term (current) use of insulin

== ENCOUNTER 2017-08-21 18:44 | Inpatient (IN) | payer OTHER ==
[~2017-08-21] VITALS: Ht 172.7 cm; Wt 71.1 kg
[~2017-08-21 18:44] MED LIST changes: -ACET-1047 PO; +AMOX1TAB43 PO; +CTP1 PO; +DICY10CA12 PO; +EFFSR75 PO; +ENOX40IN SQ; -INSDGIPEN SC; +INSDGIPEN SQ; -LVNIS40 SQ; +MAGN400T6 PO; +NVLG SQ; -NVLGIPEN SC; +PANT40TA PO; +RXC5 PO
[2017-08-21] MEDS ORDERED: SODIUM CHLORIDE 0.9% 1000ML 1,000 ML IV STA (18:57)
[2017-08-21] MEDS ORDERED: SODIUM CHLORIDE 0.9% 500ML 500 ML IV STA (18:57)
[2017-08-21 19:28] LABS: BASO % 0.4 %; BASO ABS # 0.02 K/uL (0-0.2); COMPLETE YES; EOS % 0.8 %; HEMATOCRIT 37.6 % (37-47); IG% 0.2 %; LYMPH % 29.9 %; LYMPH ABS # 1.43 K/uL (1.2-3.4); MEAN CELL VOLUME 75.2 fL (80-100); MEAN CORPUSCULAR HEMOGLOBIN 24.8 pg (25-34); MONO % 13.4 %; NEUT % 55.3 %; PLATELET COUNT 138 K/uL (130-400); WHITE BLOOD COUNT 4.78 K/uL (4.8-10.8)
[2017-08-21] MEDS ORDERED: DILTIAZEM BOLUS / DRIP IV STA (19:32)
[2017-08-21] MEDS ORDERED: DILTIAZEM HCL 5 MG/ML 5 ML VIAL IV STA ×2 (19:32→19:53)
[2017-08-21 19:45] LABS: INR 1.2 (0.9-1.1); PARTIAL THROMBOPLASTIN RATIO 1.3; PROTHROMBIN TIME (PATIENT) 13.4 SECONDS (9.0-12.0)
[2017-08-21] MEDS ORDERED: DILTIAZEM HCL INJ 125 MG in DEXTROSE 5% 100ML IV PRN (19:45)
[2017-08-21 19:52] LABS: ALT/SGPT 22 U/L (12-78); BLOOD UREA NITROGEN 13 mg/dl (7-18); BUN/CREATININE RATIO 16.2 (10-20); CALCIUM 8.4 mg/dl (8.5-10.1); CARBON DIOXIDE 28 mmol/L (21-32); CHLORIDE 103 mmol/L (98-107); CREATININE 0.77 mg/dl (0.60-1.20); GLUCOSE 156 mg/dl (70-99); MAGNESIUM 1.8 mg/dl (1.8-2.4); SODIUM 137 mmol/L (136-145)
[2017-08-21 19:55] LABS: ALKALINE PHOSPHATASE 235 U/L (45-117); AST/SGOT 62 U/L (15-37); CKMB/CK RATIO 3.2 (0-3.0)
--- NOTE | 2017-08-21 20:00 | DIAGNOSTIC IMAGING REPORT ---
CHEST ONE VIEW PORTABLE CLINICAL HISTORY: 62 years-old Female presenting with CHEST PAIN. TECHNIQUE: Portable upright AP view of the chest was obtained. COMPARISON: 07/28/2017. FINDINGS: Atherosclerosis of aortic arch. Cardiac silhouette normal in size. Bronchial wall thickening may be present. Mild prominence of pulmonary vasculature. Lungs and pleural spaces clear. Cervical fusion hardware noted. Cholecystectomy clips. IMPRESSION: 1. Bronchial wall thickening and mild pulmonary vascular prominence could suggest volume overload. No zakiya pulmonary edema. Electronically signed by: Flavio Vázquez M.D. 08/21/2017 7:59 PM Dictated Date/Time: 08/21/2017 7:57 PM
[2017-08-21] MEDS ORDERED: NF656 TOP (21:08)
[2017-08-21] MEDS ORDERED: VENL75CA73 PO (21:22)
[2017-08-21] MEDS ORDERED: NVLGIPEN SC (21:31)
[2017-08-21] MEDS ORDERED: IPRASOL4 INH (21:33)
[2017-08-21] MEDS ORDERED: IMD/2 PO (21:41)
[2017-08-21] MEDS ORDERED: LOPERAMIDE HCL 2 MG CAP PO PRN (22:00)
[2017-08-21] MEDS ORDERED: LACTULOSE SYRUP 30 GM/45 ML UDP PO PRN (22:00)
[2017-08-21] MEDS ORDERED: ACETAMINOPHEN 325 MG TAB PO PRN (22:00)
[2017-08-21] MEDS ORDERED: ZOLPIDEM TARTRATE 5 MG TAB PO PRN (22:00)
[2017-08-21] MEDS ORDERED: ALBUT/IPRATROP 3MG/0.5MG NEB 3 ML VIAL INH PRN (22:00)
[2017-08-21] MEDS ORDERED: HYDROCORTISONE 2.5% CR 30 GM TUBE EXT PRN (22:00)
[2017-08-21] MEDS ORDERED: DICYCLOMINE HCL 10 MG CAP PO PRN (22:00)
[2017-08-21] MEDS ORDERED: METOPROLOL TARTRATE 1 MG/ML VIAL IV PRN (22:15)
[2017-08-21] MEDS ORDERED: CLONIDINE HCL 0.1 MG TAB PO STA (22:19)
--- NOTE | 2017-08-21 22:26 | EMERGENCY ROOM VISIT NOTE ---
History Report prepared by Gailibbello: Radha Hernandez Under the Supervision of: Dr. Edgar Mena M.D. First contact with patient: 18:56 Chief Complaint: CHEST PAIN Stated Complaint: CARDIAC Nursing Triage Summary: PT has left anterior CP that started this evening when eating, PT has worse pain with deep breathing and palpation. does have SOB. denies N/V or diaphoresis History of Present Illness The patient is a 62 year old female who presents to the Emergency Room with complaints of persistent left sided chest pain that started earlier this evening when she was eating. She rates her pain as an 8/10 in severity. Breathing and palpation worsen her discomfort. She also complains of shortness of breath and heart palpitations. She denies any previous history of an irregular heart beat. The patient was discharged from [facility], where she was sent after undergoing hip surgery. She reports she broke her hip during a fall. She denies any recent lightheadedness or dizziness. The patient also denies any recent LOC, headache, fevers, chills, diaphoresis, visual changes, neck pain, nausea, vomiting, abdominal pain, back pain, melena, hematochezia, urinary symptoms, numbness, weakness, lymphadenopathy, rash, or other complaints. Source of History: patient Onset: earlier this evening Position: chest (left) Symptom Intensity: 8/10 Timing: other (persistent) Modifying Factors (Worsening): breathing, other (palpation) Associated Symptoms: + SOB Review of Systems See HPI for pertinent positives and negatives. A total of ten systems were reviewed and were otherwise negative. Past Medical & Surgical Medical Problems: (1) Abdominal pain (2) Abdominal pain (3) Ac Pyelonephritis Nos (4) Alcohol Liver Damage Nos (5) Ankle pain (6) Asthma (7) Atrial fibrillation with rapid ventricular response (8) Chronic obstructive lung disease (9) Cirrhosis of liver (10) Cirrhosis Of Liver Nos (11) Constipation (12) DIAB KAVYA WO COMPL, TYPE II OR UNSPEC TYPE, NOT UNCNTRLD (13) Diabetes mellitus (14) Diabetes mellitus with hyperglycemia (15) Dysuria (16) Edema (17) Epigastric abdominal pain (18) Fall (19) Fall (20) Foot contusion (21) Foot fracture, right (22) Fx Lumbar Vertebra-Close (23) Generalized convulsive epilepsy (24) Generalized-onset seizures (25) Head injury (26) Head injury (27) Headache (28) Headache (29) Headache (30) Headache (31) Headache (32) Headache (33) Headache (34) Headache (35) Headache (36) Headache (37) Headache (38) Hepatic encephalopathy (39) Hip fracture, left (40) Hyperglycemia (41) Hyperglycemia (42) Hyperglycemia without ketosis (43) Hypertension Nos (44) Hypomagnesemia (45) Idiopathic peripheral autonomic neuropathy (46) Ileus (47) Laceration (48) Lumbago (49) Lumbosacral Neuritis Nos (50) Migraine (51) Migraine (52) Migraine (53) Migraine (54) Migraine (55) Migraine (56) Migraine (57) Migraine headache (58) Migraine headache (59) Migraine headache (60) Migraine Unspecified W/O Intract Mgrn W/O Status Migrainosus (61) Myalgia And Myositis Nos (62) Neck pain (63) New onset atrial fibrillation (64) Noncompliance (65) Opiate withdrawal (66) Osteoporosis (67) Peripheral edema (68) Portal Hypertension (69) Postoperative wound infection (70) Right facial pain (71) Right sided abdominal pain (72) Right upper quadrant abdominal pain (73) Right-sided chest wall pain (74) s/p cholecystectomy (75) s/p lumbar kyphoplasty (76) s/p lumbar laminectomy (77) s/p reconstruction nose (78) Tobacco Use Disorder (79) Unspecified Viral Hepatitis C Without Hepatic Coma (80) UTI (urinary tract infection) (81) Vomiting Family History Adopted Social History Smoking Status: Former Smoker Alcohol Use: none, other Drug Use: none Marital Status: Housing Status: lives with friends Occupation Status: disabled Current/Historical Medications Scheduled Amoxicillin & Pot Clavulanate (Amoxicillin/Clavulanate P), 875 MG PO BIDM Calcium Carbonate-Vitamin D W/ (Caltrate 600 Plus), 1 TABLET PO TID Clonidine HCl (Clonidine HCl), 0.1 MG PO BID Furosemide (Furosemide), 20 MG PO DAILY Gabapentin (Gabapentin), 100 MG PO TID Insulin Aspart (Novolog), 12 UNITS SQ TIDM Insulin Aspart (Novolog Flexpen), 1 DOSE SC ACHS Insulin Glargine (Lantus Solostar), 58 UNITS SQ HS Levetiracetam (Levetiracetam), 1,000 MG PO BID Lidocaine (Lidoderm Patch 5%), 1 PATCH TOP QAM Magnesium Oxide (Mag-Ox), 400 MG PO BID Metoprolol Succinate (Metoprolol Succinate ER), 25 MG PO DAILY Pantoprazole (Protonix), 40 MG PO BID Potassium Chloride (Micro-K Ext Rel), 10 MEQ PO BID Rifaximin (Xifaxan), 550 MG PO Q12 Spironolactone (Aldactone), 50 MG PO QAM Venlafaxine Hcl (Effexor Extended Rel), 150 MG PO DAILY Venlafaxine Hcl (Venlafaxine Extended Rel), 75 MG PO DAILY Scheduled PRN Dicyclomine Hcl (Dicyclomine Hcl), 10 MG PO TID PRN for CRAMPING Hydrocortisone (Hydrocortisone), 1 APPLN TOP TID PRN for UNDECIDED Ipratropium-Albuterol (Duoneb), 3 ML INH Q6 PRN for SOB/Wheezing Lactulose (Lactulose), 30 GM PO DAILY PRN for Constipation Loperamide Hcl (Imodium), 2 MG PO Q2H PRN for Diarrhea Oxycodone HCl (Oxycodone HCl), 5 MG PO Q8H PRN for Pain Allergies Coded Allergies: Coconut (Verified Allergy, Unknown, ANAPHYLAXIS, 08/21/17) Modafinil (Verified Adverse Reaction, Severe, MAKES HYPER, 08/21/17) Sulfamethoxazole (Verified Adverse Reaction, Intermediate, PT STATES NOT GOOD FOR LIVER, 08/21/17) PT STATES (NOT GOOD FOR LIVER) Zolpidem (Verified Adverse Reaction, Intermediate, LIVER PROBLEMS, 08/21/17 ) Morphine (Verified Adverse Reaction, Mild, hallucinations, 08/21/17) Physical Exam Vital Signs Date Time Temp Pulse Resp B/P (MAP) Pulse Ox O2 Delivery O2 Flow Rate FiO2 08/21/17 21:54 79 23 94 08/21/17 21:46 102/63 08/21/17 21:39 78 18 94 08/21/17 21:30 105/64 08/21/17 21:24 78 18 94 08/21/17 21:16 96/62 08/21/17 21:15 77 18 96/62 98 Room Air 08/21/17 21:09 80 21 96 08/21/17 21:01 105/63 08/21/17 20:54 79 15 95 08/21/17 20:49 79 18 96 08/21/17 20:46 103/66 08/21/17 20:34 132 18 08/21/17 20:31 94/55 08/21/17 20:19 92 21 08/21/17 20:16 103/78 08/21/17 20:15 81/60 08/21/17 20:04 89 16 93 08/21/17 19:59 110 21 92 08/21/17 19:51 99/72 08/21/17 19:44 131 24 108/75 95 08/21/17 19:29 153 22 08/21/17 19:18 174 08/21/17 19:00 98 Room Air 08/21/17 19:00 98 Room Air 08/21/17 18:53 37.3 150 22 100/81 97 Room Air 08/21/17 18:51 100/81 Physical Exam GENERAL: Awake, alert, well-appearing, in no distress HENT: Normocephalic, atraumatic. Oropharynx unremarkable. EYES: Normal conjunctiva. Sclera non-icteric. NECK: Supple. No nuchal rigidity. FROM. No JVD. RESPIRATORY: Clear to auscultation. CARDIAC: Tachycardic heart rate, regular rhythm. Extremities warm and well perfused. Pulses equal. ABDOMEN: Soft, non-distended. No tenderness to palpation. No rebound or guarding. No masses. RECTAL: Deferred. MUSCULOSKELETAL: Chest examination reveals no tenderness. The back is symmetrical on inspection without obvious abnormality. There is no CVA tenderness to palpation. No joint edema. LOWER EXTREMITIES: Calves are equal size bilaterally and non-tender. No edema. Chronic venous discoloration in the lower extremities. NEURO: Normal sensorium. No sensory or motor deficits noted. SKIN: No rash or jaundice noted. Medical Decision & Procedures ER Provider Diagnostic Interpretation: Radiology results as stated below per my review and radiologist interpretation: CHEST ONE VIEW PORTABLE CLINICAL HISTORY: 62 years-old Female presenting with CHEST PAIN. TECHNIQUE: Portable upright AP view of the chest was obtained. COMPARISON: 07/28/2017. FINDINGS: Atherosclerosis of aortic arch. Cardiac silhouette normal in size. Bronchial wall thickening may be present. Mild prominence of pulmonary vasculature. Lungs and pleural spaces clear. Cervical fusion hardware noted. Cholecystectomy clips. IMPRESSION: 1. Bronchial wall thickening and mild pulmonary vascular prominence could suggest volume overload. No zakiya pulmonary edema. Electronically signed by: Flavio Vázquez M.D. 08/21/2017 7:59 PM Laboratory Results 08/21/17 19:05 Red Blood Count 5.00, Mean Corpuscular Volume 75.2, Mean Corpuscular Hemoglobin 24.8, Mean Corpuscular Hemoglobin Concent 33.0, Mean Platelet Volume 10.0, Neutrophils (%) (Auto) 55.3, Lymphocytes (%) (Auto) 29.9, Monocytes (%) (Auto) 13.4, Eosinophils (%) (Auto) 0.8, Basophils (%) (Auto) 0.4, Neutrophils # (Auto ) 2.64, Lymphocytes # (Auto) 1.43, Monocytes # (Auto) 0.64, Eosinophils # (Auto ) 0.04, Basophils # (Auto) 0.02 08/21/17 19:05 Test 08/21/17 19:05 08/21/17 19:20 White Blood Count 4.78 K/uL (4.8-10.8) Red Blood Count 5.00 M/uL (4.2-5.4) Hemoglobin 12.4 g/dL (12.0-16.0) Hematocrit 37.6 % (37-47) Mean Corpuscular Volume 75.2 fL (80-100) Mean Corpuscular Hemoglobin 24.8 pg (25-34) Mean Corpuscular Hemoglobin Concent 33.0 g/dl (32-36) Platelet Count 138 K/uL (130-400) Mean Platelet Volume 10.0 fL (7.4-10.4) Neutrophils (%) (Auto) 55.3 % Lymphocytes (%) (Auto) 29.9 % Monocytes (%) (Auto) 13.4 % Eosinophils (%) (Auto) 0.8 % Basophils (%) (Auto) 0.4 % Neutrophils # (Auto) 2.64 K/uL (1.4-6.5) Lymphocytes # (Auto) 1.43 K/uL (1.2-3.4) Monocytes # (Auto) 0.64 K/uL (0.11-0.59) Eosinophils # (Auto) 0.04 K/uL (0-0.5) Basophils # (Auto) 0.02 K/uL (0-0.2) RDW Standard Deviation 50.6 fL (36.4-46.3) RDW Coefficient of Variation 18.3 % (11.5-14.5) Immature Granulocyte % (Auto) 0.2 % Immature Granulocyte # (Auto) 0.01 K/uL (0.00-0.02) Anion Gap 7.0 mmol/L (3-11) Est Creatinine Clear Calc Drug Dose 74.4 ml/min Estimated GFR () 94.6 Estimated GFR (Non- 81.6 BUN/Creatinine Ratio 16.2 (10-20) Calcium Level 8.4 mg/dl (8.5-10.1) Magnesium Level 1.8 mg/dl (1.8-2.4) Total Bilirubin 1.5 mg/dl (0.2-1) Direct Bilirubin 1.0 mg/dl (0-0.2) Aspartate Amino Transf (AST/SGOT) 62 U/L (15-37) Alanine Aminotransferase (ALT/SGPT) 22 U/L (12-78) Alkaline Phosphatase 235 U/L (45-117) Total Creatine Kinase 50 U/L (26-192) Creatine Kinase MB 1.6 ng/ml (0.5-3.6) Creatine Kinase MB Ratio 3.2 (0-3.0) Troponin I < 0.015 ng/ml (0-0.045) Total Protein 7.6 gm/dl (6.4-8.2) Albumin 2.2 gm/dl (3.4-5.0) Lipase 187 U/L (73-393) Prothrombin Time 13.4 SECONDS (9.0-12.0) Prothromb Time International Ratio 1.2 (0.9-1.1) Activated Partial Thromboplast Time 33.7 SECONDS (21.0-31.0) Partial Thromboplastin Ratio 1.3 Laboratory results reviewed by me Medications Administered Medications (Trade) Dose Ordered Sig/Alyse Route Start Time Stop Time Status Last Admin Dose Admin Sodium Chloride 500 ml @ 999 mls/hr Q31M STAT IV 08/21/17 18:57 08/21/17 19:27 DC 08/21/17 18:57 999 MLS/HR Sodium Chloride 1,000 ml @ 125 mls/hr Q8H STAT IV 08/21/17 18:57 08/22/17 02:56 08/21/17 19:46 125 MLS/HR Diltiazem HCl (Cardizem Inj) 10 mg NOW STAT IV 08/21/17 19:32 08/21/17 19:34 DC 08/21/17 19:45 10 MG Diltiazem HCl 125 mg/Dextrose 125 ml @ 0 mls/hr Q0M PRN IV 08/21/17 19:45 08/21/17 22:08 DC 08/21/17 19:56 5 MLS/HR ECG Indication: chest pain Rate (beats per minute): 143 Rhythm: atrial fibrillation (with RVR) Findings: no acute ischemic change, no ectopy ED Course 1915: The patient was evaluated in room C8. A complete history and physical exam was performed. 1856: NSS 1000 ml @ 125 mls/hr IV, NSS 500 ml @ 999 mls/hr IV. 1931: Cardizem 10 mg IV. 1944: Diltiazem HCl 125 mg/Dextrose 125 ml @ 0 mls/hr IV. 1950: I reevaluated the patient. Her heart rate is improved and she is going on a Cardizem drip. 2029: I reevaluated the patient. She is resting comfortably. I discussed my recommendation she remain in the hospital for further evaluation and management and she verbalized complete understanding and agreement. 2036: I discussed the patients case with Dr. Bran, [facility] Hospitalist. The patient will be further evaluated. Medical Decision Triage Nursing notes reviewed. The patient's presentation and history were concerning for tachycardia. Etiologies such as ectopy, cardiac dysrhythmia, electrolyte abnormality, thyroid dysfunction, pulmonary embolism, infection, gastrointestinal, as well as others were entertained. The patient was evaluated. She was found to be in rapid atrial fibrillation. No ischemia on ECG. She noted some chest pain and palpitations. Chest x-ray was unremarkable. Her blood pressure was mildly low. She is given 2 doses of Cardizem 10 mg. This helped with rate control. She was started on a Cardizem drip. Her CBC, chemistry panel, cardiac markers were unremarkable. Magnesium was unremarkable as well. The patient was reassessed and was doing well. As this is a new onset issue for her she will need further evaluation and management in the hospital. Consultation was placed with internal medicine. The patient was evaluated in the Emergency Room for further management. Medication Reconcilliation Current Medication List: was personally reviewed by me Blood Pressure Screening Patient's blood pressure: Normal blood pressure Blood pressure disposition: Did not require urgent referral Consults Time Called: 2029 Consulting Physician: Dr. Barrientos, [facility] Hospitalist Returned Call: 2036 I discussed the patients case with Dr. Bran [facility] Hospitalist. The patient will be further evaluated. Impression Primary Impression: Atrial fibrillation with RVR Critical Care I have personally spent greater than 30 minutes of critical care time in the direct management of this patient. This includes bedside care, interpretation of diagnostic studies, and testing, discussion with consultants, patient, and other required patient management activities. This 30 minutes is in excess of all separately billable procedures. Scribe Attestation The scribe's documentation has been prepared under my direction and personally reviewed by me in its entirety. I confirm that the note above accurately reflects all work, treatment, procedures, and medical decision making performed by me. Departure Information Dispostion Being Evaluated By Hospitalist Referrals Franco Singh D.O. (PCP) Patient Instructions My [facility]
--- NOTE | 2017-08-21 23:15 | History and Physical ---
History & Physical Date & Time of Service: Aug 21, 2017 at 23:15 Chief Complaint: Cardiac Primary Care Physician: Franco Singh D.O. History of Present Illness Source: patient The patient is a 62-year-old female who presents to the emergency department with left-sided chest pain, palpitations and shortness of breath that began earlier this evening when she was eating. She has not had any these symptoms in the past. She was most recently in [facility] from July 09 through July 16 for left hip fracture, and then July 29 through August 04 for left lower extremity cellulitis. She was most recently discharged from [facility]. Past Medical/Surgical History Medical Problems: (1) Abdominal pain Status: Resolved (2) Abdominal pain Status: Resolved (3) Ac Pyelonephritis Nos Status: Resolved (4) Alcohol Liver Damage Nos Status: Chronic (5) Ankle pain Status: Resolved (6) Asthma Status: Chronic (7) Chronic obstructive lung disease Status: Chronic (8) Cirrhosis of liver Status: Resolved (9) Cirrhosis Of Liver Nos Status: Chronic (10) Constipation Status: Resolved (11) DIAB KAVYA WO COMPL, TYPE II OR UNSPEC TYPE, NOT UNCNTRLD Status: Chronic (12) Diabetes mellitus Status: Chronic (13) Diabetes mellitus with hyperglycemia Status: Resolved (14) Dysuria Status: Resolved (15) Edema Status: Resolved (16) Epigastric abdominal pain Status: Resolved (17) Fall Status: Resolved (18) Fall Status: Resolved (19) Foot contusion Status: Resolved (20) Foot fracture, right Status: Resolved (21) Fx Lumbar Vertebra-Close Status: Chronic (22) Generalized convulsive epilepsy Status: Chronic (23) Generalized-onset seizures Status: Resolved (24) Head injury Status: Resolved (25) Head injury Status: Resolved (26) Headache Status: Resolved (27) Headache Status: Resolved (28) Headache Status: Resolved (29) Headache Status: Resolved (30) Headache Status: Resolved (31) Headache Status: Resolved (32) Headache Status: Resolved (33) Headache Status: Resolved (34) Headache Status: Resolved (35) Headache Status: Resolved (36) Headache Status: Resolved (37) Hepatic encephalopathy Status: Chronic (38) Hyperglycemia Status: Resolved (39) Hyperglycemia Status: Resolved (40) Hyperglycemia without ketosis Status: Resolved (41) Hypertension Nos Status: Chronic (42) Hypomagnesemia Status: Resolved (43) Idiopathic peripheral autonomic neuropathy Status: Chronic (44) Ileus Status: Resolved (45) Laceration Status: Resolved (46) Lumbago Status: Chronic (47) Lumbosacral Neuritis Nos Status: Chronic (48) Migraine Status: Resolved (49) Migraine Status: Resolved (50) Migraine Status: Resolved (51) Migraine Status: Resolved (52) Migraine Status: Resolved (53) Migraine Status: Resolved (54) Migraine Status: Resolved (55) Migraine headache Status: Resolved (56) Migraine headache Status: Resolved (57) Migraine headache Status: Resolved (58) Migraine Unspecified W/O Intract Mgrn W/O Status Migrainosus Status: Chronic (59) Myalgia And Myositis Nos Status: Chronic (60) Neck pain Status: Resolved (61) Noncompliance Status: Resolved (62) Osteoporosis Status: Chronic (63) Peripheral edema Status: Resolved (64) Portal Hypertension Status: Chronic (65) Right facial pain Status: Resolved (66) Right sided abdominal pain Status: Resolved (67) Right upper quadrant abdominal pain Status: Resolved (68) Right-sided chest wall pain Status: Resolved (69) s/p cholecystectomy Status: Resolved (70) s/p lumbar kyphoplasty Permanent Comment: 2002 L3 2011 L2 Status: Resolved (71) s/p lumbar laminectomy Permanent Comment: 2003 Status: Resolved (72) s/p reconstruction nose Status: Resolved (73) Tobacco Use Disorder Status: Chronic (74) Unspecified 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: Chronic (75) Vomiting Status: Resolved Family History Adopted Social History Smoking Status: Former Smoker Smokeless Tobacco Use: No Alcohol Use: none Drug Use: none Marital Status: Housing status: lives alone Occupational Status: disabled Immunizations History of Influenza Vaccine: No Influenza Vaccine Date: Sep 25, 2010 History of Tetanus Vaccine?: Yes Tetanus Immunization Date: Sep 25, 2010 History of Pneumococcal: Yes Pneumococcal Date: March 25, 2009 History of Hepatitis B Vaccine: No Multi-Drug Resistant Organisms History of MDRO: No Allergies Coded Allergies: Coconut (Verified Allergy, Unknown, ANAPHYLAXIS, 08/21/17) Modafinil (Verified Adverse Reaction, Severe, MAKES HYPER, 08/21/17) Sulfamethoxazole (Verified Adverse Reaction, Intermediate, PT STATES NOT GOOD FOR LIVER, 08/21/17) PT STATES (NOT GOOD FOR LIVER) Zolpidem (Verified Adverse Reaction, Intermediate, LIVER PROBLEMS, 08/21/17 ) Morphine (Verified Adverse Reaction, Mild, hallucinations, 08/21/17) Home Medications Scheduled Amoxicillin & Pot Clavulanate (Amoxicillin/Clavulanate P), 875 MG PO BIDM Calcium Carbonate-Vitamin D W/ (Caltrate 600 Plus), 1 TABLET PO TID Clonidine HCl (Clonidine HCl), 0.1 MG PO BID Furosemide (Furosemide), 20 MG PO DAILY Gabapentin (Gabapentin), 100 MG PO TID Insulin Aspart (Novolog), 12 UNITS SQ TIDM Insulin Aspart (Novolog Flexpen), 1 DOSE SC ACHS Insulin Glargine (Lantus Solostar), 58 UNITS SQ HS Levetiracetam (Levetiracetam), 1,000 MG PO BID Lidocaine (Lidoderm Patch 5%), 1 PATCH TOP QAM Magnesium Oxide (Mag-Ox), 400 MG PO BID Metoprolol Succinate (Metoprolol Succinate ER), 25 MG PO DAILY Pantoprazole (Protonix), 40 MG PO BID Potassium Chloride (Micro-K Ext Rel), 10 MEQ PO BID Rifaximin (Xifaxan), 550 MG PO Q12 Spironolactone (Aldactone), 50 MG PO QAM Venlafaxine Hcl (Effexor Extended Rel), 150 MG PO DAILY Venlafaxine Hcl (Venlafaxine Extended Rel), 75 MG PO DAILY Scheduled PRN Dicyclomine Hcl (Dicyclomine Hcl), 10 MG PO TID PRN for CRAMPING Hydrocortisone (Hydrocortisone), 1 APPLN TOP TID PRN for UNDECIDED Ipratropium-Albuterol (Duoneb), 3 ML INH Q6 PRN for SOB/Wheezing Lactulose (Lactulose), 30 GM PO DAILY PRN for Constipation Loperamide Hcl (Imodium), 2 MG PO Q2H PRN for Diarrhea Oxycodone HCl (Oxycodone HCl), 5 MG PO Q8H PRN for Pain Review of Systems The patient denies cough, lower extremity swelling, vision change, hearing change, sore throat, fevers, chills, sweats, weight change, fatigue, nausea, vomiting, diarrhea or constipation, abdominal pain, pelvic pain, blood in urine or stool, dysuria, urinary frequency or urgency, lightheadedness , dizziness, headache, memory loss, rash, abnormal bruising or bleeding, imbalance, numbness or tingling in arms or legs, generalized arthralgias or myalgias, or night sweats. The review of systems is otherwise negative other than for that already noted above, and at least 10 systems have been reviewed. Physical Exam Vital Signs Date Time Temp Pulse Resp B/P (MAP) Pulse Ox O2 Delivery O2 Flow Rate FiO2 08/21/17 22:46 106/59 08/21/17 22:44 78 22 94 08/21/17 22:31 124/69 08/21/17 22:29 83 18 97 08/21/17 22:16 109/69 08/21/17 22:14 81 16 95 08/21/17 22:01 99/53 08/21/17 21:59 80 21 94 08/21/17 21:54 79 23 94 08/21/17 21:46 102/63 08/21/17 21:39 78 18 94 08/21/17 21:30 105/64 08/21/17 21:24 78 18 94 08/21/17 21:16 96/62 08/21/17 21:15 77 18 96/62 98 Room Air 08/21/17 21:09 80 21 96 08/21/17 21:01 105/63 08/21/17 20:54 79 15 95 08/21/17 20:49 79 18 96 08/21/17 20:46 103/66 08/21/17 20:34 132 18 08/21/17 20:31 94/55 08/21/17 20:19 92 21 08/21/17 20:16 103/78 08/21/17 20:15 81/60 08/21/17 20:04 89 16 93 08/21/17 19:59 110 21 92 08/21/17 19:51 99/72 08/21/17 19:44 131 24 108/75 95 08/21/17 19:29 153 22 08/21/17 19:18 174 08/21/17 19:00 98 Room Air 08/21/17 19:00 98 Room Air 08/21/17 18:53 37.3 150 22 100/81 97 Room Air 08/21/17 18:51 100/81 The patient is awake, well-developed and adequately nourished, alert and oriented 3, normocephalic and atraumatic, lying in bed and in no acute distress. HEENT--PERRL, EOMI, mucous membranes and oropharynx dry. Neck--supple, no JVD or bruits, thyroid normal, trachea midline, no adenopathy. Heart--normal S1 and S2, no extra beats, no murmurs, rubs or gallops. Lungs--clear bilaterally with good air movement, no respiratory distress, no accessory muscle use. Abdomen--normal bowel sounds and soft, nontender and nondistended, no hernias or masses, no organomegaly. Extremities--no cyanosis, clubbing or edema. There are good distal pulses b/l. Dermatologic--normal skin turgor, normal color, warm and dry, no abnormal lymph nodes, no rash. Neurologic--cranial nerves II through XII grossly intact. Rheumatologic--normal range of motion, nontender, muscles and joints. Psychiatric--normal affect. Diagnostics Laboratory Results Results Past 24 Hours Test 08/21/17 19:05 08/21/17 19:20 Range/Units White Blood Count 4.78 4.8-10.8 K/uL Red Blood Count 5.00 4.2-5.4 M/uL Hemoglobin 12.4 12.0-16.0 g/dL Hematocrit 37.6 37-47 % Mean Corpuscular Volume 75.2 80-100 fL Mean Corpuscular Hemoglobin 24.8 25-34 pg Mean Corpuscular Hemoglobin Concent 33.0 32-36 g/dl Platelet Count 138 130-400 K/uL Mean Platelet Volume 10.0 7.4-10.4 fL Neutrophils (%) (Auto) 55.3 % Lymphocytes (%) (Auto) 29.9 % Monocytes (%) (Auto) 13.4 % Eosinophils (%) (Auto) 0.8 % Basophils (%) (Auto) 0.4 % Neutrophils # (Auto) 2.64 1.4-6.5 K/uL Lymphocytes # (Auto) 1.43 1.2-3.4 K/uL Monocytes # (Auto) 0.64 0.11-0.59 K/uL Eosinophils # (Auto) 0.04 0-0.5 K/uL Basophils # (Auto) 0.02 0-0.2 K/uL RDW Standard Deviation 50.6 36.4-46.3 fL RDW Coefficient of Variation 18.3 11.5-14.5 % Immature Granulocyte % (Auto) 0.2 % Immature Granulocyte # (Auto) 0.01 0.00-0.02 K/uL Sodium Level 137 136-145 mmol/L Potassium Level 4.0 3.5-5.1 mmol/L Chloride Level 103 98-107 mmol/L Carbon Dioxide Level 28 21-32 mmol/L Anion Gap 7.0 3-11 mmol/L Blood Urea Nitrogen 13 7-18 mg/dl Creatinine 0.77 0.60-1.20 mg/dl Est Creatinine Clear Calc Drug Dose 74.4 ml/min Estimated GFR () 94.6 Estimated GFR (Non- 81.6 BUN/Creatinine Ratio 16.2 10-20 Random Glucose 156 70-99 mg/dl Calcium Level 8.4 8.5-10.1 mg/dl Magnesium Level 1.8 1.8-2.4 mg/dl Total Bilirubin 1.5 0.2-1 mg/dl Direct Bilirubin 1.0 0-0.2 mg/dl Aspartate Amino Transf (AST/SGOT) 62 15-37 U/L Alanine Aminotransferase (ALT/SGPT) 22 12-78 U/L Alkaline Phosphatase 235 45-117 U/L Total Creatine Kinase 50 26-192 U/L Creatine Kinase MB 1.6 0.5-3.6 ng/ml Creatine Kinase MB Ratio 3.2 0-3.0 Troponin I < 0.015 0-0.045 ng/ml Total Protein 7.6 6.4-8.2 gm/dl Albumin 2.2 3.4-5.0 gm/dl Lipase 187 73-393 U/L Prothrombin Time 13.4 9.0-12.0 SECONDS Prothromb Time International Ratio 1.2 0.9-1.1 Activated Partial Thromboplast Time 33.7 21.0-31.0 SECONDS Partial Thromboplastin Ratio 1.3 Diagnostic Radiology Patient Name: MARKEL QUEEN Unit Number: [id number] Dictated: 08/21/171956 Transcribed: 08/21/171956 PBS Printed Date/Time: [~ rep prt dt]/[~ rep prt tm] [~ rep ct labl] - [~ rep ct ivnm] [facility] Radiology Department [place], [place] [id number] Dictated: 08/21/171956 Transcribed: 08/21/171956 PBS Printed Date/Time: [~ rep prt dt]/[~ rep prt tm] [~ rep ct labl] - [~ rep ct ivnm] [~ rep ct add3]] CHEST ONE VIEW PORTABLE CLINICAL HISTORY: 62 years-old Female presenting with CHEST PAIN. TECHNIQUE: Portable upright AP view of the chest was obtained. COMPARISON: 07/28/2017. FINDINGS: Atherosclerosis of aortic arch. Cardiac silhouette normal in size. Bronchial wall thickening may be present. Mild prominence of pulmonary vasculature. Lungs and pleural spaces clear. Cervical fusion hardware noted. Cholecystectomy clips. IMPRESSION: 1. Bronchial wall thickening and mild pulmonary vascular prominence could suggest volume overload. No zakiya pulmonary edema. Electronically signed by: Flavio Vázquez M.D. 08/21/2017 7:59 PM Dictated Date/Time: 08/21/2017 7:57 PM The status of this report is Signed. Draft = Not yet reviewed or approved by Radiologist. Signed = Reviewed and approved by Radiologist. <AttendingPhy></AttendingPhy> <FamilyPhy>Franco Singh D.O.</FamilyPhy> < PrimaryPhy>Franco Singh D.O.</PrimaryPhy> <UnitNumber>[id number]</ UnitNumber> <VisitNumber>[id number]</VisitNumber> <PatientName>BERNICEMARKEL</PatientName> <DateOfBirth>1955</DateOfBirth> <Location>[facility]</Location > <ServiceDate>08/21/17</ServiceDate> <MNE>ESINDI</MNE> <OrderingPhy>Edgar Mena MD</OrderingPhy> <OrderingPhyMNE>f rep ord dr jules</OrderingPhyMNE> < DictatingPhyMNE>f rep dict dr jules</DictatingPhyMNE> <CCListMNE>f rep ct mne</ CCListMNE> <AdmittingPhyMNE>f pt admit dr jules</AdmittingPhyMNE> <AttendingPhyMNE >f pt attend dr jules</AttendingPhyMNE> <ConsultingPhyMNE>f pt consult dr jules</ConsultingPhyMNE> <FamilyPhyMNE>f pt fam dr jules</FamilyPhyMNE> <OtherPhyMNE>f pt other dr jules</OtherPhyMNE> < PrimaryPhyMNE>f pt prim care dr jules</PrimaryPhyMNE> <ReferringPhyMNE>f pt referring dr jules</ReferringPhyMNE> EKG EKG shows atrial fibrillation with RVR at 143 bpm. Impression Assessment and Plan New onset atrial fibrillation with RVR/conversion to normal sinus rhythm-- The patient will be admitted to telemetry for serial cardiac enzymes, cardiac rhythm monitoring and a 2-D echocardiogram with Dopplers. Patient received Cardizem 10 mg IV pushes 2, then was placed on a Cardizem drip at 5 mg per hour. This drip was discontinued, after patient received clonidine 0.2 mg by mouth. Continue clonidine 0.1 mg by mouth twice a day. Continue metoprolol succinate ER 25 mg by mouth daily Hold furosemide, spironolactone, potassium and magnesium supplements. We will hold on anticoagulation at this point, consult cardiology. Diabetes mellitus-- Reduce Lantus from 58-30 units subcutaneous at bedtime. Place on Accu-Cheks before meals and at bedtime with NovoLog coverage per scale. Seizure disorder-- Continue Keppra 1000 mg by mouth twice a day. GERD-- Continue pantoprazole 40 mg by mouth twice a day, and Xifaxan 550 mg by mouth every 12 hours. Depression--continue Effexor XR 225 mg by mouth daily. Neuropathy--continue lidocaine patch and gabapentin 100 mg by mouth 3 times a day. Level of Care Telemetry Advanced Directives Existing Advance Directive: No Existing Living Will: No Existing Power of Physician'S Aide: No Resuscitation Status FULL RESUSCITATION VTE Prophylaxis VTE Risk Assessment Done? Y/N: Yes Risk Level: High Given or contraindicated: Enoxaparin (Lovenox)SQ, SCD's
[2017-08-21 23:45] VITALS: BP 107/65; PULSE 81; TEMP 36.9; O2SAT 96; Ht 172.7 cm; Wt 71.1 kg
[2017-08-21] MEDS ORDERED: NSS + 20MEQ KCL 1000ML 1,000 ML IV SCH (23:45)
[2017-08-21 23:59] VITALS: O2SAT 96
[2017-08-22] VITALS (9 sets, daily range): BP systolic 93–118; BP diastolic 57–69; PULSE 81–92; TEMP 36.3–37.1; O2SAT 90–96
[2017-08-22] MEDS: OXYCODONE HCL IR 5 MG TAB (IMMEDIATE RELEASE) PO PRN ×3 (01:08→23:12)
[2017-08-22] MEDS: AMOXICILLIN/CLAVULANATE TAB 875 MG TAB PO SCH ×2 (07:46→17:06)
[2017-08-22] MEDS: CALCIUM 600MG + VIT D 400 IU TAB PO SCH ×3 (07:46→20:04)
[2017-08-22] MEDS: VENLAFAXINE HCL XR 75 MG CAPXR PO SCH (07:47)
[2017-08-22] MEDS: ASPIRIN 81 MG ECTAB PO SCH (07:47)
[2017-08-22] MEDS: LEVETIRACETAM 500 MG TAB PO SCH ×2 (07:48→20:05)
[2017-08-22] MEDS: RIFAXIMIN TAB 550 MG TAB PO SCH ×2 (07:48→20:09)
[2017-08-22] MEDS: MAGNESIUM OXIDE 400 MG TAB PO SCH ×2 (07:48→20:07)
[2017-08-22] MEDS: GABAPENTIN 100 MG CAP PO SCH ×3 (07:48→20:07)
[2017-08-22] MEDS: VENLAFAXINE HCL XR 150 MG CAPXR PO SCH (07:49)
[2017-08-22] MEDS: POTASSIUM CHLORIDE 10 MEQ TABCR PO SCH ×2 (07:49→20:06)
[2017-08-22] MEDS: PANTOprazole SOD 40 MG TAB PO SCH ×2 (07:49→20:08)
[2017-08-22] MEDS: LIDODERM (LIDOCAINE) PATCH 5% TD SCH (07:50)
[2017-08-22] MEDS ORDERED: CLONIDINE HCL 0.1 MG TAB PO SCH (09:00)
[2017-08-22] MEDS ORDERED: METOPROLOL SUCC 25MG EXT REL TAB PO SCH (09:00)
--- NOTE | 2017-08-22 09:20 | Cardiology Consultation ---
Cardiology Consultation Date of Consultation: Aug 22, 2017. Requesting Physician: Kayla Reason for Consultation: tachycardia History of Present Illness The patient is a 62-year-old woman without any significant cardiac history who was at her residence yesterday evening eating dinner when she experienced the onset of chest discomfort. He describes the symptoms as a pressure sensation that was very discrete in the upper sternal area. This did not involve any radiation to the arm or the neck. He did not generalized other portions of the chest. He was associated with a sense of mild dyspnea and dizziness. She thinks she may have had some mild diaphoresis and feeling of warmth associated with some mild nausea as well. She did have a faint sensation of a slightly rapid heartbeat. Based on the symptoms she underwent an evaluation and treatment with 50 milligrams of metoprolol. Without resolution of her symptoms she was transported to [facility] for an evaluation. Recently she has been feeling well. She reports waiting for an opportunity return to her home residence. She states that she has passed all of her physical therapy requirements but is still a little wobbly on her feet. She does have a sense of dizziness on occasion which seems more vertiginous in nature and is associated with changing position of her head. She did not describe any fall since her accident resulting in her hip fracture. She has not experienced symptoms of chest discomfort in the past. She is not aware of any racing heartbeats or sense of palpitation. She has no orthopnea. She has not had notable edema recently and she has not noticed any increasing abdominal girth. She denies any constitutional symptoms such as fevers or chills. She reports having a good appetite. Her prior level of functioning appeared to be quite good. She reports playing soccer up to 1 year ago. He was generally independent at home with some help which included a caregiver who performed shopping and routine vice president risk management. Emergency room at [facility] she was discovered to have a tachycardia. She was started on a diltiazem infusion. At some point the patient converted to a sinus rhythm. Her symptoms appear to have resolved at that time. The total duration of her symptoms was likely over an hour. At the time of interview this morning that she claims to be feeling well she has no symptoms of chest discomfort she has no sense of palpitation. She has no breathing difficulty. Past Medical/Surgical History Hepatitis C resulting in cirrhosis History of hepatic encephalopathy Pancreas divisum Epilepsy Migraine Osteoporosis COPD Panic disorder with agoraphobia Depression Chronic pain syndrome with history of opioid dependency Cellulitis Surgical history Cholecystectomy Breast lumpectomy Spine surgery including kyphoplasty x2 Vaginal hysterectomy Nasal reconstructive surgery with grafting Hip fracture with fixation Family History Adopted Noncontributory Social History Smoking Status: Former Smoker History of Alcohol Use: No Currently a resident at [facility] Review of Systems Some vertigo as described above. No increasing abdominal girth recently. No abdominal pain. She describes occasional swelling in the lower extremities. All Other Systems: Reviewed and Negative Allergies Coded Allergies: Coconut (Verified Allergy, Unknown, ANAPHYLAXIS, 08/21/17) Modafinil (Verified Adverse Reaction, Severe, MAKES HYPER, 08/21/17) Sulfamethoxazole (Verified Adverse Reaction, Intermediate, PT STATES NOT GOOD FOR LIVER, 08/21/17) PT STATES (NOT GOOD FOR LIVER) Zolpidem (Verified Adverse Reaction, Intermediate, LIVER PROBLEMS, 08/21/17 ) Morphine (Verified Adverse Reaction, Mild, hallucinations, 08/21/17) Medications Current Inpatient Medications Medications (Trade) Dose Ordered Sig/Alyse Route Start Time Stop Time Status Last Admin Dose Admin Potassium Chloride/Sodium Chloride 1,000 ml @ 100 mls/hr Q10H IV 08/21/17 23:45 09/20/17 23:44 08/22/17 00:22 100 MLS/HR Acetaminophen (Tylenol Tab) 650 mg Q4H PRN PO 08/21/17 22:00 09/20/17 21:59 Zolpidem Tartrate (Ambien Tab) 5 mg HSZ PRN PO 08/21/17 22:00 09/20/17 21:59 Aspirin (Ecotrin Tab) 81 mg QAM PO 08/22/17 09:00 09/21/17 08:59 08/22/17 07:47 81 MG Amoxicillin/ Clavulanate Potassium (Augmentin Tab) 875 mg BIDM PO 08/22/17 07:30 09/01/17 07:59 08/22/17 07:46 875 MG Calcium/Vitamin D (Caltrate Plus Tab) 1 tab TID PO 08/22/17 09:00 09/21/17 08:59 08/22/17 07:46 1 TAB Clonidine HCl (Catapres Tab) 0.1 mg BID PO 08/22/17 09:00 09/21/17 08:59 Dicyclomine HCl (Bentyl Cap) 10 mg TID PRN PO 08/21/17 22:00 09/20/17 21:59 Gabapentin (Neurontin Cap) 100 mg TID PO 08/22/17 09:00 09/21/17 08:59 08/22/17 07:48 100 MG Hydrocortisone (Hydrocortisone 2.5% Crm) 1 appln TID PRN EXT 08/21/17 22:00 09/20/17 21:59 Insulin Glargine (Lantus Solostar Pen) 30 units HS SQ 08/22/17 21:00 09/21/17 20:59 Albuterol/ Ipratropium (Duoneb) 3 ml Q6 PRN INH 08/21/17 22:00 09/20/17 21:59 Lactulose (Chronulac Syrup) 30 gm DAILY PRN PO 08/21/17 22:00 09/20/17 21:59 Lidocaine (Lidoderm Patch 5%) 1 patch QAM TD 08/22/17 09:00 09/21/17 08:59 08/22/17 07:50 1 PATCH Loperamide HCl (Imodium Cap) 2 mg Q2H PRN PO 08/21/17 22:00 09/20/17 21:59 Magnesium Oxide (Mag-Ox Tab) 400 mg BID PO 08/22/17 09:00 09/21/17 08:59 08/22/17 07:48 400 MG Metoprolol Succinate (Toprol Xl Tab) 25 mg DAILY PO 08/22/17 09:00 09/21/17 08:59 Oxycodone HCl (Roxicodone Immediate Rel Tab) 5 mg Q8H PRN PO 08/21/17 22:00 09/04/17 21:59 08/22/17 01:08 5 MG Pantoprazole Sodium (Protonix Tab) 40 mg BID PO 08/22/17 09:00 09/21/17 08:59 08/22/17 07:49 40 MG Potassium Chloride (Klor-Con M10) 10 meq BID PO 08/22/17 09:00 09/21/17 08:59 08/22/17 07:49 10 MEQ Rifaximin (Xifaxan Tab) 550 mg Q12 PO 08/22/17 09:00 09/21/17 08:59 08/22/17 07:48 550 MG Venlafaxine HCl (effeXOR EXTENDED REL CAP) 150 mg DAILY PO 08/22/17 09:00 09/21/17 08:59 08/22/17 07:49 150 MG Venlafaxine HCl (effeXOR EXTENDED REL CAP) 75 mg DAILY PO 08/22/17 09:00 09/21/17 08:59 08/22/17 07:47 75 MG Levetiracetam (Keppra Tab) 1,000 mg BID PO 08/22/17 09:00 09/21/17 08:59 08/22/17 07:48 1,000 MG Miscellaneous (Remove Lidoderm Patch) 1 ea DAILY@21 N/A 08/22/17 21:00 09/21/17 20:59 Metoprolol Tartrate (Lopressor Iv) 5 mg Q4 PRN IV 08/21/17 22:15 09/20/17 22:14 Physical Exam Vital Signs Past 12 Hours Date Time Temp Pulse Resp B/P (MAP) Pulse Ox O2 Delivery O2 Flow Rate FiO2 08/22/17 04:47 37.1 84 22 94/57 (69) 92 Room Air 08/22/17 04:00 96 Room Air 08/21/17 23:59 96 Room Air 08/21/17 23:45 36.9 81 18 107/65 96 Room Air 08/21/17 22:46 106/59 08/21/17 22:44 78 22 94 08/21/17 22:31 124/69 08/21/17 22:29 83 18 97 08/21/17 22:16 109/69 08/21/17 22:14 81 16 95 08/21/17 22:01 99/53 08/21/17 21:59 80 21 94 08/21/17 21:54 79 23 94 08/21/17 21:46 102/63 08/21/17 21:39 78 18 94 08/21/17 21:30 105/64 08/21/17 21:24 78 18 94 08/21/17 21:16 96/62 08/21/17 21:15 77 18 96/62 98 Room Air 08/21/17 21:09 80 21 96 She is alert and oriented x3. Mood affect appear normal. She seemed answer questions appropriately but some of her statements cannot be adequately validate at this time HEENT: Sclerae are anicteric. Pupils are equal and reactive to light and accommodation. Extraocular movements were intact. Neuro: Cranial nerves intact Neck: Examination of the submandibular region did not reveal any significant lymphadenopathy. Carotids are palpable bilaterally and free of bruits on auscultation. There was no evidence of jugular venous distention. The thyroid was not enlarged. Lungs: There was some crackles at the bases bilaterally which seem to clear with inspiration. No wheezing. She has normal respiratory effort without use of accessory muscles. There is normal pulmonary excursion. Cardiac: The rhythm was regular. S1 and S2 were normal. There are no murmurs on examination. The PMI was not markedly displaced on palpation. Abdomen: The abdomen was soft and nontender. Extremities: Patient has bilateral radial pulses that are equal in intensity. There is no evidence cyanosis or clubbing. There was no evidence of significant peripheral edema bilaterally. Skin: There are no rashes noted on examination today. Data Laboratory Results: Last 24 Hours Test 08/21/17 19:05 08/21/17 19:20 08/22/17 07:12 White Blood Count 4.78 K/uL Red Blood Count 5.00 M/uL Hemoglobin 12.4 g/dL Hematocrit 37.6 % Mean Corpuscular Volume 75.2 fL Mean Corpuscular Hemoglobin 24.8 pg Mean Corpuscular Hemoglobin Concent 33.0 g/dl Platelet Count 138 K/uL Mean Platelet Volume 10.0 fL Neutrophils (%) (Auto) 55.3 % Lymphocytes (%) (Auto) 29.9 % Monocytes (%) (Auto) 13.4 % Eosinophils (%) (Auto) 0.8 % Basophils (%) (Auto) 0.4 % Neutrophils # (Auto) 2.64 K/uL Lymphocytes # (Auto) 1.43 K/uL Monocytes # (Auto) 0.64 K/uL Eosinophils # (Auto) 0.04 K/uL Basophils # (Auto) 0.02 K/uL RDW Standard Deviation 50.6 fL RDW Coefficient of Variation 18.3 % Immature Granulocyte % (Auto) 0.2 % Immature Granulocyte # (Auto) 0.01 K/uL Sodium Level 137 mmol/L Potassium Level 4.0 mmol/L Chloride Level 103 mmol/L Carbon Dioxide Level 28 mmol/L Anion Gap 7.0 mmol/L Blood Urea Nitrogen 13 mg/dl Creatinine 0.77 mg/dl Est Creatinine Clear Calc Drug Dose 74.4 ml/min Estimated GFR () 94.6 Estimated GFR (Non- 81.6 BUN/Creatinine Ratio 16.2 Random Glucose 156 mg/dl Calcium Level 8.4 mg/dl Magnesium Level 1.8 mg/dl Total Bilirubin 1.5 mg/dl Direct Bilirubin 1.0 mg/dl Aspartate Amino Transf (AST/SGOT) 62 U/L Alanine Aminotransferase (ALT/SGPT) 22 U/L Alkaline Phosphatase 235 U/L Total Creatine Kinase 50 U/L Creatine Kinase MB 1.6 ng/ml Creatine Kinase MB Ratio 3.2 Troponin I < 0.015 ng/ml Total Protein 7.6 gm/dl Albumin 2.2 gm/dl Lipase 187 U/L Prothrombin Time 13.4 SECONDS Prothromb Time International Ratio 1.2 Activated Partial Thromboplast Time 33.7 SECONDS Partial Thromboplastin Ratio 1.3 Bedside Glucose 170 mg/dl Imaging: Chest x-ray did not reveal any significant cardiopulmonary disease EKG: Several EKGs were obtained and I have reviewed the source images. Initial EKG is suggestive of an atrial arrhythmia, not atrial fibrillation. More recent EKGs for revealed a sinus rhythm. Telemetry reviewed: No significant arrhythmia Assessment & Plan 1. supraventricular tachycardia: Patient's symptoms are likely related to development of a tachycardia. The mechanism of the tachycardia is not clear. I think we can definitively say this was not atrial fibrillation however. There is a good possibility this represents an atrial flutter or other form of reentry given the regularity of the rhythm. We will review an echocardiogram to look for significant structural heart disease. However, her examination is normal and her echocardiogram will likely be unremarkable. As this is the 1st episode of arrhythmia which was well tolerated I think we can treat her conservatively. I would advocate increasing her metoprolol to 50 milligrams daily. With respect to anticoagulation, I think she can continue on her daily aspirin currently. There is a real possibility this represents an atrial flutter and in that scenario anticoagulation must be considered. However, given her other comorbidities I think we should defer anticoagulation at this time. In the event she has recurrence of the arrhythmia electrophysiologic testing would be indicated and possible definitive therapy performed at that time. 2. Chest pain: This is likely related to the arrhythmia. There were no ischemic EKG changes. Despite a prolonged episode of tachycardia and discomfort there was no elevation in her cardiac biomarkers. We will see if her echocardiogram is normal as suspected. In the absence of significant LV dysfunction I would not pursue any ischemic evaluation at this time. Given her history of cirrhosis and thrombocytopenia she is also poor candidate for dual anti-platelet therapy should she require any cardiac intervention.
--- NOTE | 2017-08-22 09:49 | Progress Note ---
Subjective Date of Service: Aug 22, 2017. Subjective Pt evaluation today including: conversation w/ patient, physical exam, lab review, review of studies, conversation w/ telecom sales consultant, review of inpatient medication list Pain: pain in left leg from ankle to hip, since hip surgery PO Intake: adequate Voiding: no voiding problems reviewed monitor, no further events reviewed labs, stable appreciate consult from Dr. Lester, recommends increasing Toprol to 50mg and checking echo, hold on anticoagulation patient feeling well, eating well, no further chest pain, no dyspnea c/o pain in left leg associated with her recent hip surgery Problem List Medical Problems: (1) Acute exacerbation of chronic low back pain Status: Acute (2) Anxiety Status: Acute (3) Atrial fibrillation with RVR Status: Acute (4) Back pain Status: Acute (5) Cellulitis of left lower extremity Status: Acute (6) Chronic abdominal pain Status: Acute (7) Chronic diarrhea Status: Acute (8) Complaints of total body pain Status: Acute (9) Contusion of multiple sites Status: Acute (10) Dehydration Status: Acute (11) Elevated bilirubin Status: Acute (12) Episodic overuse of medication Status: Acute (13) Facial pain Status: Acute (14) Fatigue Status: Acute (15) Hallucinations Status: Acute (16) Headache Status: Acute (17) Hyperglycemia Status: Acute (18) Hyperglycemia Status: Acute (19) Left hip pain Status: Acute (20) Migraine Status: Acute (21) Migraine Status: Acute (22) Migraine Status: Acute (23) Migraine Status: Acute (24) Migraine Status: Acute (25) Migraine Status: Acute (26) Migraine Status: Acute (27) Opioid withdrawal Status: Acute (28) Pancytopenia Status: Acute (29) Paranoia Status: Acute (30) Post-op pain Status: Acute (31) Pyelonephritis Status: Acute (32) Renal colic on left side Status: Acute (33) S/P ORIF (open reduction internal fixation) fracture Status: Acute (34) Skin tear Status: Acute (35) Thrombocytopenia Status: Acute (36) Vomiting Status: Acute Review of Systems Constitutional: + weakness, + fatigue All Other Systems: Reviewed and Negative Medications Current Inpatient Medications Medications (Trade) Dose Ordered Sig/Alyse Route Start Time Stop Time Status Last Admin Dose Admin Potassium Chloride/Sodium Chloride 1,000 ml @ 100 mls/hr Q10H IV 08/21/17 23:45 09/20/17 23:44 08/22/17 00:22 100 MLS/HR Acetaminophen (Tylenol Tab) 650 mg Q4H PRN PO 08/21/17 22:00 09/20/17 21:59 Zolpidem Tartrate (Ambien Tab) 5 mg HSZ PRN PO 08/21/17 22:00 09/20/17 21:59 Aspirin (Ecotrin Tab) 81 mg QAM PO 08/22/17 09:00 09/21/17 08:59 08/22/17 07:47 81 MG Amoxicillin/ Clavulanate Potassium (Augmentin Tab) 875 mg BIDM PO 08/22/17 07:30 09/01/17 07:59 08/22/17 07:46 875 MG Calcium/Vitamin D (Caltrate Plus Tab) 1 tab TID PO 08/22/17 09:00 09/21/17 08:59 08/22/17 07:46 1 TAB Dicyclomine HCl (Bentyl Cap) 10 mg TID PRN PO 08/21/17 22:00 09/20/17 21:59 Gabapentin (Neurontin Cap) 100 mg TID PO 08/22/17 09:00 09/21/17 08:59 08/22/17 07:48 100 MG Hydrocortisone (Hydrocortisone 2.5% Crm) 1 appln TID PRN EXT 08/21/17 22:00 09/20/17 21:59 Insulin Glargine (Lantus Solostar Pen) 30 units HS SQ 08/22/17 21:00 09/21/17 20:59 Albuterol/ Ipratropium (Duoneb) 3 ml Q6 PRN INH 08/21/17 22:00 09/20/17 21:59 Lactulose (Chronulac Syrup) 30 gm DAILY PRN PO 08/21/17 22:00 09/20/17 21:59 Lidocaine (Lidoderm Patch 5%) 1 patch QAM TD 08/22/17 09:00 09/21/17 08:59 08/22/17 07:50 1 PATCH Loperamide HCl (Imodium Cap) 2 mg Q2H PRN PO 08/21/17 22:00 09/20/17 21:59 Magnesium Oxide (Mag-Ox Tab) 400 mg BID PO 08/22/17 09:00 09/21/17 08:59 08/22/17 07:48 400 MG Oxycodone HCl (Roxicodone Immediate Rel Tab) 5 mg Q8H PRN PO 08/21/17 22:00 09/04/17 21:59 08/22/17 01:08 5 MG Pantoprazole Sodium (Protonix Tab) 40 mg BID PO 08/22/17 09:00 09/21/17 08:59 08/22/17 07:49 40 MG Potassium Chloride (Klor-Con M10) 10 meq BID PO 08/22/17 09:00 09/21/17 08:59 08/22/17 07:49 10 MEQ Rifaximin (Xifaxan Tab) 550 mg Q12 PO 08/22/17 09:00 09/21/17 08:59 08/22/17 07:48 550 MG Venlafaxine HCl (effeXOR EXTENDED REL CAP) 150 mg DAILY PO 08/22/17 09:00 09/21/17 08:59 08/22/17 07:49 150 MG Venlafaxine HCl (effeXOR EXTENDED REL CAP) 75 mg DAILY PO 08/22/17 09:00 09/21/17 08:59 08/22/17 07:47 75 MG Levetiracetam (Keppra Tab) 1,000 mg BID PO 08/22/17 09:00 09/21/17 08:59 08/22/17 07:48 1,000 MG Miscellaneous (Remove Lidoderm Patch) 1 ea DAILY@21 N/A 08/22/17 21:00 09/21/17 20:59 Metoprolol Tartrate (Lopressor Iv) 5 mg Q4 PRN IV 08/21/17 22:15 09/20/17 22:14 Metoprolol Succinate (Toprol Xl Tab) 50 mg DAILY PO 08/23/17 09:00 09/21/17 08:59 UNV Objective Vital Signs Date Time Temp Pulse Resp B/P (MAP) Pulse Ox O2 Delivery O2 Flow Rate FiO2 08/22/17 09:11 101/62 (75) 08/22/17 08:00 Room Air 08/22/17 08:00 36.8 81 18 100/64 (76) 90 Room Air 08/22/17 04:47 37.1 84 22 94/57 (69) 92 Room Air 08/22/17 04:00 96 Room Air 08/21/17 23:59 96 Room Air 08/21/17 23:45 36.9 81 18 107/65 96 Room Air 08/21/17 22:46 106/59 08/21/17 22:44 78 22 94 08/21/17 22:31 124/69 08/21/17 22:29 83 18 97 08/21/17 22:16 109/69 08/21/17 22:14 81 16 95 08/21/17 22:01 99/53 08/21/17 21:59 80 21 94 08/21/17 21:54 79 23 94 08/21/17 21:46 102/63 08/21/17 21:39 78 18 94 08/21/17 21:30 105/64 08/21/17 21:24 78 18 94 08/21/17 21:16 96/62 08/21/17 21:15 77 18 96/62 98 Room Air 08/21/17 21:09 80 21 96 08/21/17 21:01 105/63 08/21/17 20:54 79 15 95 08/21/17 20:49 79 18 96 08/21/17 20:46 103/66 08/21/17 20:34 132 18 08/21/17 20:31 94/55 08/21/17 20:19 92 21 08/21/17 20:16 103/78 08/21/17 20:15 81/60 08/21/17 20:04 89 16 93 08/21/17 19:59 110 21 92 08/21/17 19:51 99/72 08/21/17 19:44 131 24 108/75 95 08/21/17 19:29 153 22 08/21/17 19:18 174 08/21/17 19:00 98 Room Air 08/21/17 19:00 98 Room Air 08/21/17 18:53 37.3 150 22 100/81 97 Room Air 08/21/17 18:51 100/81 Physical Exam General Appearance: WD/WN, no apparent distress Neck: supple, no adenopathy, no JVD, trachea midline Respiratory/Chest: chest non-tender, lungs clear, normal breath sounds, no respiratory distress, no accessory muscle use Cardiovascular: regular rate, rhythm, no edema, no gallop, no JVD, no murmur Abdomen: normal bowel sounds, non tender, soft, no organomegaly Extremities: normal range of motion, non-tender, normal inspection, no pedal edema, no calf tenderness, pelvis stable 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iatric: cardiovascular technician II-XII nml as tested, no motor/sensory deficits, alert, normal mood/affect, oriented x 3 Skin: normal color, warm/dry, no rash Laboratory Results Last 24 Hours Test 08/21/17 19:05 08/21/17 19:20 08/22/17 07:12 White Blood Count 4.78 K/uL Red Blood Count 5.00 M/uL Hemoglobin 12.4 g/dL Hematocrit 37.6 % Mean Corpuscular Volume 75.2 fL Mean Corpuscular Hemoglobin 24.8 pg Mean Corpuscular Hemoglobin Concent 33.0 g/dl Platelet Count 138 K/uL Mean Platelet Volume 10.0 fL Neutrophils (%) (Auto) 55.3 % Lymphocytes (%) (Auto) 29.9 % Monocytes (%) (Auto) 13.4 % Eosinophils (%) (Auto) 0.8 % Basophils (%) (Auto) 0.4 % Neutrophils # (Auto) 2.64 K/uL Lymphocytes # (Auto) 1.43 K/uL Monocytes # (Auto) 0.64 K/uL Eosinophils # (Auto) 0.04 K/uL Basophils # (Auto) 0.02 K/uL RDW Standard Deviation 50.6 fL RDW Coefficient of Variation 18.3 % Immature Granulocyte % (Auto) 0.2 % Immature Granulocyte # (Auto) 0.01 K/uL Sodium Level 137 mmol/L Potassium Level 4.0 mmol/L Chloride Level 103 mmol/L Carbon Dioxide Level 28 mmol/L Anion Gap 7.0 mmol/L Blood Urea Nitrogen 13 mg/dl Creatinine 0.77 mg/dl Est Creatinine Clear Calc Drug Dose 74.4 ml/min Estimated GFR () 94.6 Estimated GFR (Non- 81.6 BUN/Creatinine Ratio 16.2 Random Glucose 156 mg/dl Calcium Level 8.4 mg/dl Magnesium Level 1.8 mg/dl Total Bilirubin 1.5 mg/dl Direct Bilirubin 1.0 mg/dl Aspartate Amino Transf (AST/SGOT) 62 U/L Alanine Aminotransferase (ALT/SGPT) 22 U/L Alkaline Phosphatase 235 U/L Total Creatine Kinase 50 U/L Creatine Kinase MB 1.6 ng/ml Creatine Kinase MB Ratio 3.2 Troponin I < 0.015 ng/ml Total Protein 7.6 gm/dl Albumin 2.2 gm/dl Lipase 187 U/L Prothrombin Time 13.4 SECONDS Prothromb Time International Ratio 1.2 Activated Partial Thromboplast Time 33.7 SECONDS Partial Thromboplastin Ratio 1.3 Bedside Glucose 170 mg/dl Assessment and Plan 62 yo female with h/o cirrhosis, recent hip surgery and recent treatment for cellulitis, was at [facility] and ready for discharge when she developed atrial flutter with RVR and associated chest pain - Atrial flutter with RVR: resolved, back in NSR, no further chest pain appreciate cardiology consult, recommend increasing Toprol to 50mg daily check echo today no anticoagulation for now as this is first episode and she has significant co-morbidities if she has recurrent episode then she will need AC and electrophysiologic work up - Chest pain: demand ischemia due to RVR, no further pain, - HTN: will discontinue Clonidine since Toprol will be increased, follow BP closely - Left leg pain from surgery, neuropathy: continue Lidocaine patch, Neurontin, Oxycodone - Cirrhosis: resume Lasix, Spironolactone continue Lactulose, Rifaximin no encephalopathy currently - DM type II: continue Lantus and Novolog SS Seizure disorder-- Continue Keppra 1000 mg by mouth twice a day. GERD-- Continue pantoprazole 40 mg by mouth twice a day, and Xifaxan 550 mg by mouth every 12 hours. Depression--continue Effexor XR 225 mg by mouth daily. Plan: keep on telemetry another 24 hours to ensure that she maintains NSR, check echo plan to d/c home tomorrow on Toprol 50mg daily, discontinue Clonidine follow up with PCP in [place] and then Dr. Lester in a few weeks
--- NOTE | 2017-08-22 17:16 | ECHOCARDIOGRAM REPORT ---
*NOTICE TO RECEIVING [employer] This information is strictly Confidential and protected under [place] law. [place] law prohibits you from making any further disclosure of this information unless further disclosure is expressly permitted by the written consent of the person to whom it pertains or is authorized by law. A general authorization for the release of medical or other information is not sufficient for this purpose. Hospital accepts no responsibility if the information is made available to any other person, INCLUDING THE PATIENT. Interpretation Summary * Name: MARKEL QUEEN Study Date: 08/22/2017 01:48 PM BP: 101/62 mmHg * Patient Location: C.2T\S\S229\S\2 HR: 81 * : 1955 (M/d/yyyy) Gender: Female Height: 68 in * Age: 62 yrs Ethnicity: [place] Weight: 157 lb * Ordering Physician: Boogie Lester * Referring Physician: No Doctor, Assigned * Performed By: Martina Fischer RCS * * Reason For Study: A-FLUTTER * BSA: 1.8 m2 * -- Conclusions -- * Left ventricular systolic function is normal. * Grade I diastolic dysfunction, (abnormal relaxation pattern). * The right atrium is mildly dilated. * Compared to a study from 2013, there is now stage I diastolic dysfunction, otherwise no change Procedure Details * A complete two-dimensional transthoracic echocardiogram was performed (2D, M-mode, Doppler and color flow Doppler). Left Ventricle * The left ventricle is normal in size. * There is normal left ventricular wall thickness. * Left ventricular systolic function is normal. * Ejection Fraction = 55-60%. * Grade I diastolic dysfunction, (abnormal relaxation pattern). * The left ventricular wall motion is normal. Right Ventricle * The right ventricle is normal in size and function. Atria * The left atrial size is normal. * The right atrium is mildly dilated. Mitral Valve * The mitral valve is grossly normal. * Significant mitral regurgitation is absent. Tricuspid Valve * The tricuspid valve is not well visualized, but is grossly normal. * Significant tricuspid regurgitation is absent. Aortic Valve * The aortic valve is not well visualized. * No hemodynamically significant valvular aortic stenosis. * There is no significant aortic regurgitation. Great Vessels * The aortic root is normal size. Pericardium/Pleural * There is no pericardial effusion. MMode 2D Measurements and Calculations IVSd 1.1 cm IVSs 1.3 cm LVIDd 3.4 cm LVIDs 2.5 cm LVPWd 1.2 cm LVPWs 1.4 cm IVS/LVPW 0.92 FS 27.3 % EDV(Teich) 47.5 ml ESV(Teich) 21.8 ml EF(Teich) 54.2 % EDV(cubed) 39.4 ml ESV(cubed) 15.2 ml EF(cubed) 61.5 % % IVS thick 21.8 % % LVPW thick 18.3 % LV mass(C)d 123.2 grams LV mass(C)dI 66.8 grams/m\S\2 LV mass(C)s 108.3 grams LV mass(C)sI 58.7 grams/m\S\2 SV(Teich) 25.8 ml SI(Teich) 14.0 ml/m\S\2 SV(cubed) 24.2 ml SI(cubed) 13.1 ml/m\S\2 Ao root diam 2.9 cm Ao root area 6.5 cm\S\2 ACS 2.0 cm LA dimension 3.0 cm LA/Ao 1.0 LVOT diam 2.0 cm LVOT area 3.1 cm\S\2 Doppler Measurements and Calculations MV E max brennen 84.7 cm/sec MV A max brennen 110.5 cm/sec MV E/A 0.77 MV P1/2t max brennen 88.9 cm/sec MV P1/2t 76.7 msec MVA(P1/2t) 2.9 cm\S\2 MV dec slope 339.4 cm/sec\S\2 MV dec time 0.26 sec Ao V2 max 122.5 cm/sec Ao max PG 6.0 mmHg Ao max PG (full) 2.2 mmHg CINTHIA(V,A) 2.5 cm\S\2 CINTHIA(V,D) 2.5 cm\S\2 LV V1 max PG 3.8 mmHg LV V1 max 97.1 cm/sec TR max brennen 264.9 cm/sec
[2017-08-22] MEDS ORDERED: INSULIN GLARGINE SOLOSTAR 100 UNITS/ML 3 ML PEN SQ SCH (21:00)
[2017-08-23] VITALS: O2SAT 96
[2017-08-23 03:01] VITALS: BP 100/62; PULSE 93; TEMP 36.5; O2SAT 93
[2017-08-23 04:04] VITALS: O2SAT 96
[2017-08-23 06:51] LABS: CALCIUM 7.9 mg/dl (8.5-10.1); CREATININE 0.52 mg/dl (0.60-1.20); MAGNESIUM 1.7 mg/dl (1.8-2.4); POTASSIUM 3.9 mmol/L (3.5-5.1)
[2017-08-23 07:39] VITALS: BP 120/64; PULSE 96; TEMP 36.8; O2SAT 95
[2017-08-23 07:41] LABS: MEAN CORPUSCULAR HGB CONC 32.2 g/dl (32-36)
[2017-08-23 07:53] LABS: HEMATOCRIT 31.1 % (37-47); MEAN CELL VOLUME 75.7 fL (80-100); MEAN CORPUSCULAR HEMOGLOBIN 24.3 pg (25-34); RED BLOOD COUNT 4.11 M/uL (4.2-5.4); WHITE BLOOD COUNT 3.05 K/uL (4.8-10.8)
[2017-08-23 08:36] LABS: BASO % 1.3 %; BASO ABS # 0.04 K/uL (0-0.2); COMPLETE YES; EOS % 2.3 %; LYMPH % 38.4 %; LYMPH ABS # 1.17 K/uL (1.2-3.4); MONO % 13.4 %; NEUT % 44.6 %; PLATELET COUNT 73 K/uL (130-400)
[2017-08-23] MEDS ORDERED: TPRSR50 PO (08:44)
[2017-08-23] MEDS ORDERED: INSDGIPEN SQ (08:44)
[2017-08-23] MEDS ORDERED: ASPEC81 PO (08:44)
[2017-08-23] MEDS ORDERED: RXC5 PO (08:44)
--- NOTE | 2017-08-23 08:47 | Discharge Instructions ---
Discharge Instructions Date of Service Aug 23, 2017. Admission Reason for Admission: Atrial Fibrillation With Rvr, New Onset A Fib Discharge Discharge Diagnosis / Problem: atrial flutter, now sinus rhythm Discharge Goals Goal(s): Diagnostic testing, Therapeutic intervention Activity Recommendations Activity Level: Assistance Required Therapies: Physical Therapy, Occupational Therapy . Additional Information Patient informed of condition: No Advance Directives: No DNR: No Level of Care: Skilled Communicable Disease: No Prognosis: Improving Instructions / Follow-Up Instructions / Follow-Up atrial flutter --cardiology (Dr Lester) increased metoprolol to 50mg, started asa, noted that if this becomes recurrent then anticoagulation will need to be considered. --please have ongoing follow up in this regard, and obviously low threshold to start anticoagulation incidental -lactulose is current a "daily prn" but of course please dose if patient has not had at least one BM daily Current Hospital Diet Patient's current hospital diet: Regular Diet Discharge Diet Recommended Diet: Regular Diet Pending Studies Studies pending at discharge: no Laboratory Results Hemoglobin A1c Test 07/29/17 05:47 Range/Units Estimated Average Glucose 166 mg/dl Hemoglobin A1c 7.4 H 4.5-5.6 % Medical Emergencies . Who to Call and When: Medical Emergencies: If at any time you feel your situation is an emergency, please call 911 immediately. . Non-Emergent Contact Non-Emergency issues call your: Primary Care Provider, Quality Assurance Tester . . "Provider Documentation" section prepared by Freddie Couch. . Core Measure Problem Core Measures: None
[2017-08-23] MEDS ORDERED: FUROSEMIDE 20 MG TAB PO SCH (09:00)
[2017-08-23] MEDS ORDERED: METOPROLOL SUCC 50MG EXT REL TAB PO SCH (09:00)
[2017-08-23] MEDS ORDERED: SPIRONOLACTONE 25 MG TAB PO SCH (09:00)
[2017-08-23] MEDS: GABAPENTIN 100 MG CAP PO SCH (09:52)
[2017-08-23] MEDS: LIDODERM (LIDOCAINE) PATCH 5% TD SCH ×2 (09:52→09:58)
[2017-08-23] MEDS: ASPIRIN 81 MG ECTAB PO SCH (09:52)
[2017-08-23] MEDS: POTASSIUM CHLORIDE 10 MEQ TABCR PO SCH (09:53)
[2017-08-23] MEDS: LEVETIRACETAM 500 MG TAB PO SCH (09:53)
[2017-08-23] MEDS: MAGNESIUM OXIDE 400 MG TAB PO SCH (09:53)
[2017-08-23] MEDS: CALCIUM 600MG + VIT D 400 IU TAB PO SCH (09:54)
[2017-08-23] MEDS: VENLAFAXINE HCL XR 75 MG CAPXR PO SCH (09:54)
[2017-08-23] MEDS: VENLAFAXINE HCL XR 150 MG CAPXR PO SCH (09:54)
[2017-08-23] MEDS: AMOXICILLIN/CLAVULANATE TAB 875 MG TAB PO SCH (09:54)
[2017-08-23] MEDS: PANTOprazole SOD 40 MG TAB PO SCH (09:54)
[2017-08-23] MEDS: RIFAXIMIN TAB 550 MG TAB PO SCH (09:55)
[2017-08-23] MEDS: OXYCODONE HCL IR 5 MG TAB (IMMEDIATE RELEASE) PO PRN (10:02)
[2017-08-23 10:57] VITALS: BP 120/64; PULSE 96; TEMP 36.8; O2SAT 95
[2017-08-23 11:34] VITALS: BP 91/59; PULSE 84; TEMP 37; O2SAT 99
--- NOTE | 2017-08-23 19:21 | Discharge Summary ---
Discharge Summary Date of Service Aug 23, 2017. Discharge Summary Admission Date: Aug 21, 2017 at 22:05 Discharge Date: Aug 23, 2017 Discharge Disposition: Home Principal Diagnosis: aflutter Immunizations: Have You Had Influenza Vaccine: No Influenza Vaccine Date: Sep 25, 2010 History of Tetanus Vaccine?: Yes Tetanus Immunization Date: Sep 25, 2010 History of Pneumococcal: Yes Pneumococcal Date: March 25, 2009 History of Hepatitis B Vaccine: No Procedures: Interpretation Summary Name: MARKEL QUEEN Study Date: 08/22/2017 01:48 PM BP: 101/62 mmHg Patient Location: 2T\S\S229\S\2 HR: 81 : 1955 (M/d/yyyy) Gender: Female Height: 68 in Age: 62 yrs Ethnicity: [place] Weight: 157 lb Ordering Physician: Boogie Lester Referring Physician: Ruth Doctor, Assigned Performed By: Martina Fischer [facility] Reason For Study: A-FLUTTER BSA: 1.8 m2 -- Conclusions -- Left ventricular systolic function is normal. Grade I diastolic dysfunction, (abnormal relaxation pattern). The right atrium is mildly dilated. Compared to a study from 2013, there is now stage I diastolic dysfunction, otherwise no change Procedure Details A complete two-dimensional transthoracic echocardiogram was performed (2D, M- mode, Doppler and color flow Doppler). Left Ventricle The left ventricle is normal in size. There is normal left ventricular wall thickness. Left ventricular systolic function is normal. Ejection Fraction = 55-60%. Grade I diastolic dysfunction, (abnormal relaxation pattern). The left ventricular wall motion is normal. Right Ventricle The right ventricle is normal in size and function. Atria The left atrial size is normal. The right atrium is mildly dilated. Mitral Valve The mitral valve is grossly normal. Significant mitral regurgitation is absent. Tricuspid Valve The tricuspid valve is not well visualized, but is grossly normal. Significant tricuspid regurgitation is absent. Aortic Valve The aortic valve is not well visualized. No hemodynamically significant valvular aortic stenosis. There is no significant aortic regurgitation. Great Vessels The aortic root is normal size. Pericardium/Pleural There is no pericardial effusion. Results Past 24 Hours Test 08/22/17 20:06 08/23/17 05:29 08/23/17 06:31 08/23/17 11:02 Range/Units Bedside Glucose 170 136 140 70-90 mg/dl White Blood Count 3.05 4.8-10.8 K/uL Red Blood Count 4.11 4.2-5.4 M/uL Hemoglobin 10.0 12.0-16.0 g/dL Hematocrit 31.1 37-47 % Mean Corpuscular Volume 75.7 80-100 fL Mean Corpuscular Hemoglobin 24.3 25-34 pg Mean Corpuscular Hemoglobin Concent 32.2 32-36 g/dl Platelet Count 73 130-400 K/uL Neutrophils (%) (Auto) 44.6 % Lymphocytes (%) (Auto) 38.4 % Monocytes (%) (Auto) 13.4 % Eosinophils (%) (Auto) 2.3 % Basophils (%) (Auto) 1.3 % Neutrophils # (Auto) 1.36 1.4-6.5 K/uL Lymphocytes # (Auto) 1.17 1.2-3.4 K/uL Monocytes # (Auto) 0.41 0.11-0.59 K/uL Eosinophils # (Auto) 0.07 0-0.5 K/uL Basophils # (Auto) 0.04 0-0.2 K/uL RDW Standard Deviation 51.4 36.4-46.3 fL RDW Coefficient of Variation 18.3 11.5-14.5 % Immature Granulocyte % (Auto) 0.0 % Immature Granulocyte # (Auto) 0.00 0.00-0.02 K/uL Nucleated RBC Absolute Count (auto) 0.03 0-0 K/uL Nucleated Red Blood Cells % 1.0 % Sodium Level 144 136-145 mmol/L Potassium Level 3.9 3.5-5.1 mmol/L Chloride Level 113 98-107 mmol/L Carbon Dioxide Level 27 21-32 mmol/L Anion Gap 4.0 3-11 mmol/L Blood Urea Nitrogen 10 7-18 mg/dl Creatinine 0.52 0.60-1.20 mg/dl Est Creatinine Clear Calc Drug Dose 110.2 ml/min Estimated GFR () 117.0 Estimated GFR (Non- 101.0 BUN/Creatinine Ratio 19.0 10-20 Random Glucose 118 70-99 mg/dl Calcium Level 7.9 8.5-10.1 mg/dl Magnesium Level 1.7 1.8-2.4 mg/dl Total Bilirubin 1.2 0.2-1 mg/dl Direct Bilirubin 0.9 0-0.2 mg/dl Aspartate Amino Transf (AST/SGOT) 49 15-37 U/L Alanine Aminotransferase (ALT/SGPT) 18 12-78 U/L Alkaline Phosphatase 207 45-117 U/L Total Protein 5.9 6.4-8.2 gm/dl Albumin 1.7 3.4-5.0 gm/dl Consultations: cardiology Medication Reconciliation New Medications: Aspirin (Aspirin EC Low Dose) 81 Mg Ectab 81 MG PO QAM, #30 Insulin Glargine (Lantus Solostar) 100 Unit/Ml Inj 30 UNITS SQ HS for 30 Days Metoprolol Succinate (Metoprolol Succinate ER) 50 Mg Tabcr 50 MG PO DAILY, #30 Continued Medications: Amoxicillin & Pot Clavulanate (Amoxicillin/Clavulanate P) 1 Tab Tab 875 MG PO BIDM for 29 Days, #58 TAB Calcium Carbonate-Vitamin D W/ (Caltrate 600 Plus) 1 Tab Tab 1 TABLET PO TID, TAB Clonidine HCl (Clonidine HCl) 0.1 Mg Tab 0.1 MG PO BID for 5 Days, #10 TAB Dicyclomine Hcl (Dicyclomine Hcl) 10 Mg Cap 10 MG PO TID PRN for CRAMPING for 30 Days, #90 CAP 3 Refills Furosemide (Furosemide) 20 Mg Tab 20 MG PO DAILY Gabapentin (Gabapentin) 100 Mg Cap 100 MG PO TID Hydrocortisone (Hydrocortisone) 90 Appln/30 Gm Cr 1 APPLN TOP TID PRN for UNDECIDED Insulin Aspart (Novolog) 100 Units/Ml Inj 12 UNITS SQ TIDM INJECT 12 UNITS THREE TIMES DAILY WITH MEALS Insulin Aspart (Novolog Flexpen) 100 Units/Ml Inj 1 DOSE SC ACHS SLIDING SCALE ACHS 131-180 = 2 UNITS 181-240 = 4 UNITS 241-300 = 6 UNITS 301-350 = 8 UNITS 351-400 = 10 UNITS > 400 = 12 UNITS Ipratropium-Albuterol (Duoneb) 3 Ml Nebu 3 ML INH Q6 PRN for SOB/Wheezing, INHA Lactulose (Lactulose) 30 Gm/45 Ml Syrp 30 GM PO DAILY PRN for Constipation for 30 Days Titrate to having at least 1-2 BMs per day Levetiracetam (Levetiracetam) 1,000 Mg Tab 1000 MG PO BID Lidocaine (Lidoderm Patch 5%) 1 Ea Tdsy 1 PATCH TOP QAM Loperamide Hcl (Imodium) 2 Mg Cap 2 MG PO Q2H PRN for Diarrhea, CAP Magnesium Oxide (Mag-Ox) 400 Mg Tab 400 MG PO BID, TAB Oxycodone HCl (Oxycodone HCl) 5 Mg Tab 5 MG PO Q8H PRN for Pain for 3 Days, #9 TAB (This prescription has been renewed) Pantoprazole (Protonix) 40 Mg Tab 40 MG PO BID Potassium Chloride (Micro-K Ext Rel) 10 Meq Cap 10 MEQ PO BID, CAP Rifaximin (Xifaxan) 550 Mg Tab 550 MG PO Q12 Spironolactone (Aldactone) 50 Mg Tab 50 MG PO QAM Venlafaxine Hcl (Effexor Extended Rel) 150 Mg Cap 150 MG PO DAILY, CAP TAKE 150MG TABLET WITH A 75MG TABLET FOR A TOTAL DOSE OF 225MG EVERY MORNING Venlafaxine Hcl (Venlafaxine Extended Rel) 75 Mg Cap 75 MG PO DAILY, CAP TAKE 75MG TABLET WITH A 150MG TABLET FOR A TOTAL DOSE OF 225MG EVERY MORNING Discontinued Medications: Insulin Glargine (Lantus Solostar) 100 Unit/Ml Inj 58 UNITS SQ HS, PEN Metoprolol Succinate (Metoprolol Succinate ER) 25 Mg Tabcr 25 MG PO DAILY Discharge Exam Physical Exam: General Appearance: no apparent distress Eyes: EOMI ENT: hearing grossly normal Neck: trachea midline Respiratory/Chest: no respiratory distress, no accessory muscle use Cardiovascular: regular rate, rhythm (NSR) 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iatric: towel distributor II-XII nml as tested Hospital Course aflutter - converted to sinus rhythm -cardiology saw - felt right now best to increase rate control and add asa, if recurrent then strongly consider anticoagulation -remainder of baseline medical issues unchanged -stable for return to SNF Total Time Spent: Less than 30 minutes This includes examination of the patient, discharge planning, medication reconciliation, and communication with other providers. Discharge Instructions Please refer to the electronic Patient Visit Report (Discharge Instructions) for additional information. Additional Copies To [place], Kacie
== END 2017-08-23 11:30 | DRG 309 ==
LOC: EDBD 18:44 → C.EDC 18:45 → C.2T 22:05 → ENRESERV 22:48
PROVIDERS: ADMIT Hospitalist; ATTEND Internal Medicine
DX: I48.92 Unspecified atrial flutter (principal); I24.8 Other forms of acute ischemic heart disease; I47.1 Supraventricular tachycardia; I48.91 Unspecified atrial fibrillation; J44.9 Chronic obstructive pulmonary disease, unspecified; J45.909 Unspecified asthma, uncomplicated; E11.43 Type 2 diabetes mellitus with diabetic autonomic (poly)neuropathy; I11.9 Hypertensive heart disease without heart failure; F32.9 Major depressive disorder, single episode, unspecified; G40.409 Other generalized epilepsy and epileptic syndromes, not intractable, without status epilepticus; K74.60 Unspecified cirrhosis of liver; B19.20 Unspecified viral hepatitis C without hepatic coma; M81.0 Age-related osteoporosis without current pathological fracture; Z79.899 Other long term (current) drug therapy; Z79.4 Long term (current) use of insulin; Z87.891 Personal history of nicotine dependence

== ENCOUNTER → 2017-08-28 | Outpatient (CLI) | payer OTHER ==
[~2017-08-28] MED LIST changes: +ASPEC81 PO; -BISA1TAB15 PO; -CRAN500C2 PO; -EFFSR75 PO; -ENOX40IN SQ; -FLNIN/ NAE; +IMD/2 PO; +IPRASOL4 INH; -LANS30CA63 PO; +NF656 TOP; +NVLGIPEN SC; -TPRSR/25 PO; +TPRSR50 PO; +VENL75CA73 PO
[2017-08-28 08:32] LABS: MEAN CORPUSCULAR HGB CONC 32.5 g/dl (32-36)
[2017-08-28 08:37] LABS: BLOOD UREA NITROGEN 10 mg/dl (7-18); CALCIUM 8.1 mg/dl (8.5-10.1); CARBON DIOXIDE 26 mmol/L (21-32); CHLORIDE 109 mmol/L (98-107); CREATININE 0.56 mg/dl (0.60-1.20); GLUCOSE 101 mg/dl (70-99); POTASSIUM 3.5 mmol/L (3.5-5.1); SODIUM 141 mmol/L (136-145)
[2017-08-28 08:40] LABS: HEMATOCRIT 32.6 % (37-47); MEAN CELL VOLUME 75.1 fL (80-100); MEAN CORPUSCULAR HEMOGLOBIN 24.4 pg (25-34); RED BLOOD COUNT 4.34 M/uL (4.2-5.4); WHITE BLOOD COUNT 2.96 K/uL (4.8-10.8)
[2017-08-28 08:48] LABS: ALB/GLOB RATIO 0.4 (0.9-2); ALKALINE PHOSPHATASE 213 U/L (45-117); ALT/SGPT 24 U/L (12-78); AST/SGOT 62 U/L (15-37)
[2017-08-28 08:59] LABS: MEAN PLATELET VOLUME 10.4 fL (7.4-10.4); PLATELET COUNT 105 K/uL (130-400)
[2017-08-28 09:01] LABS: BASO % 1.4 %; BASO ABS # 0.04 K/uL (0-0.2); COMPLETE YES; EOS % 2.4 %; LYMPH % 41.2 %; LYMPH ABS # 1.22 K/uL (1.2-3.4); MONO % 9.8 %; NEUT % 45.2 %; PLT ESTIMATE DECREASED
== END ==
LOC: C.LABCC 08:05
PROVIDERS: ATTEND Internal Medicine
DX: K74.60 Unspecified cirrhosis of liver (principal); Z86.69 Personal history of other diseases of the nervous system and sense organs

== ENCOUNTER 2018-11-19 10:49 | Inpatient (IN) ==
[2018-11-19 11:29] LABS: Basophils # (auto) 0.01 K/uL (0-0.2); Basophils % (auto) 0.1 %; Eosinophils # (auto) 0.01 K/uL (0-0.5); Eosinophils % (auto) 0.1 %; Hematocrit (blood only) 41.8 % (37-47); Hemoglobin 14.1 g/dL (12.0-16.0); Immature Granulocytes # (auto) 0.03 K/uL (0.00-0.02); Immature Granulocytes % (auto) 0.3 %; Lymphocytes # (auto) 1.26 K/uL (1.2-3.4); Lymphocytes % (auto) 12.4 %; Mean Corpuscular Hgb Conc 33.7 g/dL (32-36); Mean Corpuscular Volume 83.1 fL (80-100); Mean Platelet Volume 10.7 fL (7.4-10.4); Monocytes # (auto) 1.21 K/uL (0.11-0.59); Monocytes % (auto) 11.9 %; Neutrophils # (auto) 7.63 K/uL (1.4-6.5); Neutrophils % (auto) 75.2 %; Platelet Count 126 K/uL (130-400); RDW Coefficient of Variation 18.8 % (11.5-14.5); RDW Standard Deviation 55.2 fL (36.4-46.3); Red Blood Count 5.03 M/uL (4.2-5.4); White Blood Count 10.15 K/uL (4.8-10.8)
[2018-11-19] MEDS ORDERED: SODIUM CHLORIDE 0.9% 1000ML 1,000 ML IV ONE (11:42)
[2018-11-19] MEDS ORDERED: ONDANSETRON INJ 2 MG/ML 2 ML VIAL IV STA (11:42)
[2018-11-19 11:44] LABS: Albumin Level 2.2 gm/dl (3.4-5.0); BUN Creatinine Ratio 31.4 (10-20); Creatinine Clr Calc Pharmacy 17.5 ml/min; Est GFR (African American) 18.1; Est GFR (Non-African American) 15.7; Potassium 4.9 mmol/L (3.5-5.1)
[2018-11-19 11:47] LABS: Albumin Globulin Ratio 0.4 (0.9-2); Bilirubin,Total 5.5 mg/dl (0.2-1); Globulin 6.1 gm/dl (2.5-4.0); Total Protein 8.3 gm/dl (6.4-8.2)
[2018-11-19 12:06] LABS: Appearance Urine Clear (Clear); Bacteria Urine Automated Negative (Negative); Bilirubin Urine Negative (Negative); Color Urine Orange; Epithelial Cell Urine Auto 0-5 /lpf (0-5); Glucose Urine UA 2+ (Negative); Ketones Urine Negative (Negative); Leukocyte Esterase Urine Trace (Negative); Nitrite Urine Positive (Negative); Protein Urine Negative (Negative); Specific Gravity Urine 1.023 (1.000-1.030); Urobilinogen Urine Negative (Negative)
[2018-11-19] MEDS ORDERED: LORazepam 0.5 MG/1 ML VIAL IV STA (12:13)
[2018-11-19] MEDS ORDERED: DiphenhydrAMINE HCL 50 MG/ML VIAL IV STA (12:13)
[2018-11-19 12:18] LABS: Magnesium 3.1 mg/dl (1.8-2.4); Troponin I < 0.015 ng/ml (0-0.045)
--- NOTE | 2018-11-19 12:18 | Emergency Department Note ---
Entered by Simón Lee acting as a scribe for Torres Spencer MD History of Present Illness General Chief complaint: Abdominal Pain Stated complaint: abd pain Time Seen by Provider: 11/19/18 11:42 Source: patient and other (caregiver) Limitations: other (confusion) History of Present Illness Onset (ago): day(s) 4 Location: head Pain Consistency: + other (worsening) Maximum Pain Intensity: 10 Quality: + other (hallucinations) Associated symptoms: + other (Positive for eating and drinking less, abdominal pain, and an increased frequency of uriantion. Negative for fever and vomiting.) The patient is a 63 year old female who presents to the emergency department with complaints of worsening hallucinations beginning four days ago. Per caregiver, the patient has been having hallucinations for the last few months that have been worsening over the last few days. She states that the patient has not been eating and drinking for the last four days. The patient also complains of abdominal pain and an increased frequency of urination. Per caregiver, the patient has not had any fever or vomiting. She notes that she found the patient sitting on the floor three days ago and is unsure if she fell. She reports that the patient was then able to get up off of the floor by herself. She states that the patient has a history of cirrhosis. HPI limited secondary to confusion. Home Medications Home Medications Medication Instructions Recorded Confirmed Type alendronate 70 mg PO WK 07/31/18 11/19/18 History ketoconazole 1 applic TOPICAL WK 07/31/18 11/19/18 History loperamide 2 mg PO 5XD 07/31/18 11/19/18 History spironolactone 1 tab PO DAILY 07/31/18 11/19/18 History cholestyramine-aspartame 1 packet PO DAILY 11/19/18 11/19/18 History [Prevalite] clonidine HCl 0.1 mg PO BID 11/19/18 11/19/18 History furosemide 20 mg PO DAILY 11/19/18 11/19/18 History pantoprazole 40 mg PO BID 11/19/18 11/19/18 History rifaximin [Xifaxan] 550 mg PO BID 11/19/18 11/19/18 History tramadol 50 mg PO BID PRN 11/19/18 11/19/18 History venlafaxine 150 mg PO BID 11/19/18 11/19/18 History Allergies Allergy/AdvReac Type Severity Reaction Status Date / Time coconut Allergy Unknown ANAPHYLAXIS Verified 11/19/18 11:15 modafinil AdvReac Severe MAKES HYPER Verified 11/19/18 11:15 sulfamethoxazole AdvReac Intermediate PT STATES Verified 11/19/18 11:15 NOT GOOD FOR LIVER zolpidem AdvReac Intermediate LIVER Verified 11/19/18 11:15 PROBLEMS morphine AdvReac Mild hallucinati Verified 11/19/18 11:15 ons Past Med/Surg History Medical History Tobacco use Skin cancer of face Cirrhosis, nonalcoholic Chronic hepatitis C Transaminitis Acute renal failure (Acute) Acute urinary retention (Acute) Liver failure (Acute) Sacral fracture (Acute) Migraine (Acute) Generalized-onset seizures (Resolved 01/23/13) Hepatic encephalopathy (Acute 01/23/13) Osteoporosis (Chronic Unknown) Generalized convulsive epilepsy (Chronic Unknown) Asthma (Chronic) Cataracts, bilateral Diabetes mellitus with hyperglycemia (Resolved) Atrial fibrillation with rapid ventricular response Family History Other No significant family history Social History Current Living Situation: Alone Current Living Situation Comment: home health nurse visits Other Information That Helps Us Care for You: No Feels Safe at Home: Yes Smoking Status: Unknown if ever smoked Beliefs That Will Affect Care: None Preferred Language: Chilean Communication Ability: confused Can Cutter Required: No Review of Systems ROS limited secondary to confusion. Physical Exam Vital Signs Vital Signs - 24 hr 11/19/18 10:54 11/19/18 10:59 11/19/18 11:00 Temperature 36.6 C Temperature Source Oral Sepsis Recent Fever Within 48 Hours No Sepsis New/Unexplained Change in Mental Status No Sepsis Action Taken by Nursing No Action Required Pulse Rate 88 79 75 Pulse Rate [Left Brachial] Pulse Rhythm Regular Pulse Rhythm [Left Brachial] Pulse Strength Normal Pulse Strength [Left Brachial] Respiratory Rate 20 22 19 Respiratory Effort / Characteristics Non-Labored Spontaneous Respiratory Depth Normal Respiratory Pattern Regular Blood Pressure 152/83 H Blood Pressure [Left Arm] Blood Pressure Mean 106 Blood Pressure Mean [Left Arm] Blood Pressure Position Lying Blood Pressure Position [Left Arm] Pulse Oximetry 100 100 100 Oxygen Delivery Method Room Air Room Air Room Air 11/19/18 11:30 11/19/18 12:00 11/19/18 12:01 Temperature Temperature Source Sepsis Recent Fever Within 48 Hours Sepsis New/Unexplained Change in Mental Status Sepsis Action Taken by Nursing Pulse Rate 74 81 Pulse Rate [Left Brachial] Pulse Rhythm Pulse Rhythm [Left Brachial] Pulse Strength Pulse Strength [Left Brachial] Respiratory Rate 23 36 H 34 H Respiratory Effort / Characteristics Respiratory Depth Respiratory Pattern Blood Pressure 163/86 H Blood Pressure [Left Arm] Blood Pressure Mean 111 Blood Pressure Mean [Left Arm] Blood Pressure Position Blood Pressure Position [Left Arm] Pulse Oximetry 100 100 100 Oxygen Delivery Method Room Air Room Air Room Air 11/19/18 12:02 11/19/18 12:30 11/19/18 13:00 Temperature Temperature Source Sepsis Recent Fever Within 48 Hours Sepsis New/Unexplained Change in Mental Status Sepsis Action Taken by Nursing Pulse Rate 84 Pulse Rate [Left Brachial] Pulse Rhythm Pulse Rhythm [Left Brachial] Pulse Strength Pulse Strength [Left Brachial] Respiratory Rate 42 H 20 Respiratory Effort / Characteristics Respiratory Depth Respiratory Pattern Blood Pressure Blood Pressure [Left Arm] Blood Pressure Mean Blood Pressure Mean [Left Arm] Blood Pressure Position Blood Pressure Position [Left Arm] Pulse Oximetry 99 96 99 Oxygen Delivery Method Room Air Room Air Room Air 11/19/18 13:01 11/19/18 13:30 11/19/18 13:31 Temperature Temperature Source Sepsis Recent Fever Within 48 Hours Sepsis New/Unexplained Change in Mental Status Sepsis Action Taken by Nursing Pulse Rate Pulse Rate [Left Brachial] Pulse Rhythm Pulse Rhythm [Left Brachial] Pulse Strength Pulse Strength [Left Brachial] Respiratory Rate 16 24 Respiratory Effort / Characteristics Respiratory Depth Respiratory Pattern Blood Pressure 148/126 H 143/93 H Blood Pressure [Left Arm] Blood Pressure Mean 133 109 Blood Pressure Mean [Left Arm] Blood Pressure Position Blood Pressure Position [Left Arm] Pulse Oximetry 99 98 97 Oxygen Delivery Method Room Air Room Air Room Air 11/19/18 14:00 11/19/18 14:01 11/19/18 14:02 Temperature Temperature Source Sepsis Recent Fever Within 48 Hours Sepsis New/Unexplained Change in Mental Status Sepsis Action Taken by Nursing Pulse Rate 87 88 88 Pulse Rate [Left Brachial] Pulse Rhythm Pulse Rhythm [Left Brachial] Pulse Strength Pulse Strength [Left Brachial] Respiratory Rate 15 19 17 Respiratory Effort / Characteristics Respiratory Depth Respiratory Pattern Blood Pressure 102/85 Blood Pressure [Left Arm] Blood Pressure Mean 90 Blood Pressure Mean [Left Arm] Blood Pressure Position Blood Pressure Position [Left Arm] Pulse Oximetry 97 97 97 Oxygen Delivery Method Room Air Room Air Room Air 11/19/18 14:30 11/19/18 14:31 11/19/18 14:32 Temperature Temperature Source Sepsis Recent Fever Within 48 Hours Sepsis New/Unexplained Change in Mental Status Sepsis Action Taken by Nursing Pulse Rate 88 89 86 Pulse Rate [Left Brachial] Pulse Rhythm Pulse Rhythm [Left Brachial] Pulse Strength Pulse Strength [Left Brachial] Respiratory Rate 14 15 15 Respiratory Effort / Characteristics Respiratory Depth Respiratory Pattern Blood Pressure 112/69 Blood Pressure [Left Arm] Blood Pressure Mean 83 Blood Pressure Mean [Left Arm] Blood Pressure Position Blood Pressure Position [Left Arm] Pulse Oximetry 96 95 96 Oxygen Delivery Method Room Air Room Air Room Air 11/19/18 15:00 11/19/18 15:01 11/19/18 16:02 Temperature 36.7 C Temperature Source Oral Sepsis Recent Fever Within 48 Hours Sepsis New/Unexplained Change in Mental Status Sepsis Action Taken by Nursing Pulse Rate 86 88 Pulse Rate [Left Brachial] 86 Pulse Rhythm Pulse Rhythm [Left Brachial] Regular Pulse Strength Pulse Strength [Left Brachial] Normal Respiratory Rate 16 15 20 Respiratory Effort / Characteristics Non-Labored Respiratory Depth Normal Respiratory Pattern Regular Blood Pressure 116/66 Blood Pressure [Left Arm] 134/78 Blood Pressure Mean 82 Blood Pressure Mean [Left Arm] 96 Blood Pressure Position Blood Pressure Position [Left Arm] Lying Pulse Oximetry 95 96 97 Oxygen Delivery Method Room Air Room Air Room Air GENERAL: Patient is in no acute distress. HEENT: No acute trauma, normocephalic atraumatic, no nasal congestion, no scleral icterus, markedly dry mucous membranes. NECK: No stridor, no adenopathy, no meningismus, trachea is midline. LUNGS: Clear to auscultation bilaterally, no wheeze, no rhonchi, breath sounds equal. HEART: Without murmurs gallops or rubs, regular rate and rhythm. ABDOMEN: Distended lower abdomen with potential bladder distention above the umbilicus, firm abdomen, diffusely tender, bowel sounds positive, no obvious hernia. EXTREMITIES: No cyanosis or edema, full range of motion of all the joints without pain or difficulty, no signs for acute trauma. NEUROLOGIC: Awake, alert, moving all extremities, some confusion noted, poor historian. SKIN: No rash, no jaundice, no diaphoresis. Course 1135: Past medical records reviewed. The patient was evaluated in room C4, and a complete history and physical examination were performed. 1147: The patient's bladder scan showed greater than 1000 cc of urine. 1304: I discussed the patient's sacral fractures with Dr. Vázquez - Radiologist , [facility]. 1333: I reevaluated and updated the patient. 1336: Upon reevaluation, the patient is stable. I discussed the results and treatment plan with the patient and her piano instructor. They verbalize understanding and agreement. I discussed the patient's case with RADHA Shields. The patient will be evaluated for further management and care. Reevaluation(s) Reevaluation #1: I discussed the patient's sacral fractures with Dr. Vázquez - Radiologist, [facility]. Time: 13:04 Reevaluation #2: I reviewed the patient's case with RADHA Shields. She will evaluate the patient for further management. Time: 13:36 Administered Medications Acetaminophen (Tylenol) 650 mg PO Q4H PRN PRN Reason: Moderate Pain Stop: 12/19/18 15:42 Last Admin: 11/19/18 17:27 Dose: 650 mg Bacitracin (Bacitracin) 1 appln EXT Q24H HYACINTH Stop: 12/19/18 15:59 Last Admin: 11/19/18 17:16 Dose: 1 appln Sodium Chloride (Nss 1000ml) 1,000 mls @ 125 mls/hr IV .Q8H HYACINTH Stop: 11/20/18 15:49 Last Admin: 11/19/18 16:41 Dose: 125 mls/hr Insulin Aspart (Novolog Flexpen) 0 units SC ACHS HYACINTH Stop: 12/19/18 16:29 Last Admin: 11/19/18 17:03 Dose: 1 units Lactulose (Chronulac) 30 gm PO Q1H HYACINTH Stop: 11/20/18 16:08 Last Admin: 11/19/18 17:17 Dose: 30 gm Admin: 11/19/18 17:17 Dose: Not Given Tramadol HCl (Ultram) 50 mg PO BID PRN PRN Reason: Pain Stop: 12/19/18 17:33 Last Admin: 11/19/18 17:54 Dose: 50 mg Discontinued Medications Diphenhydramine HCl (Benadryl) 12.5 mg IV NOW STA Stop: 11/19/18 12:14 Last Admin: 11/19/18 12:25 Dose: 12.5 mg Sodium Chloride (Nss 1000ml) 1,000 mls @ 999 mls/hr IV .Q1H1M ONE Stop: 11/19/18 12:42 Last Infusion: 11/19/18 12:51 Dose: Infusion: 11/19/18 12:51 Dose: 0 mls/hr Admin: 11/19/18 11:49 Dose: 999 mls/hr Lorazepam (Ativan) 0.5 mg in 1 mls @ 1 mls/min IV NOW STA Stop: 11/19/18 12:14 Last Admin: 11/19/18 12:25 Dose: 1 mls/min Ceftriaxone Sodium (Rocephin) 1,000 mg in 50 mls @ 100 mls/hr IV NOW STA Stop: 11/19/18 13:25 Last Infusion: 11/19/18 13:43 Dose: 0 mls/hr Admin: 11/19/18 13:04 Dose: 100 mls/hr Ondansetron HCl (Zofran) 4 mg IV NOW STA Stop: 11/19/18 11:43 Last Admin: 11/19/18 11:56 Dose: 4 mg Medical Decision Making Differential Diagnosis Differential diagnoses include: UTI, bladder distention, acute renal failure, ascites, bowel rupture, bowel obstruction, worsening liver failure, pneumonia, diverticulitis. Medical Records Attestation: I reviewed the patient's medical records. Home Medications Current Medication List: was personally reviewed by me Laboratory Data Attestation: I reviewed the patient's lab results. Result diagrams: 11/19/18 11:10 11/19/18 11:10 Lab Results 11/19/18 11/19/18 11/19/18 Range/Units 11:10 11:10 11:10 WBC 10.15 (4.8-10.8) K/uL RBC 5.03 (4.2-5.4) M/uL Hgb 14.1 (12.0-16.0) g/dL Hct 41.8 (37-47) % MCV 83.1 (80-100) fL MCH 28.0 (25-34) pg MCHC 33.7 (32-36) g/dL RDW Std Deviation 55.2 H (36.4-46.3) fL RDW Coeff of Elbert 18.8 H (11.5-14.5) % Plt Count 126 L (130-400) K/uL MPV 10.7 H (7.4-10.4) fL Immature Gran % (Auto) 0.3 % Neut % (Auto) 75.2 % Lymph % (Auto) 12.4 % Baker % (Auto) 11.9 % Eos % (Auto) 0.1 % Baso % (Auto) 0.1 % Immature Gran # (Auto) 0.03 H (0.00-0.02) K/uL Neut # (Auto) 7.63 H (1.4-6.5) K/uL Lymph # (Auto) 1.26 (1.2-3.4) K/uL Baker # (Auto) 1.21 H (0.11-0.59) K/uL Eos # (Auto) 0.01 (0-0.5) K/uL Baso # (Auto) 0.01 (0-0.2) K/uL PT (9.0-12.0) Seconds INR (0.9-1.1) APTT (21.0-31.0) Seconds PTT Ratio Sodium 141 (136-145) mmol/L Potassium 4.9 (3.5-5.1) mmol/L Chloride 109 H (98-107) mmol/L Carbon Dioxide 21 (21-32) mmol/L Anion Gap 11.0 (3-11) BUN 94 H (7-18) mg/dl Creatinine 3.00 H (0.6-1.2) mg/dl Est Cr Clr Drug Dosing 17.5 ml/min Est GFR ( Amer) 18.1 Est GFR (Non-Af Amer) 15.7 BUN/Creatinine Ratio 31.4 H (10-20) Glucose 182 H (70-99) mg/dl POC Glucose (70-99) POC Lactic Acid Jose (0.90-1.70) mmol/L Calcium 8.0 L (8.5-10.1) mg/dl Magnesium 3.1 H (1.8-2.4) mg/dl Total Bilirubin 5.5 H (0.2-1) mg/dl Direct Bilirubin AST 56 H (15-37) U/L ALT 35 (12-78) U/L Alkaline Phosphatase 176 H (45-117) U/L Ammonia (11-32) umol/L Total Creatine Kinase (26-192) U/L Troponin I < 0.015 (0-0.045) ng/ml Total Protein 8.3 H (6.4-8.2) gm/dl Albumin 2.2 L (3.4-5.0) gm/dl Globulin 6.1 H (2.5-4.0) gm/dl Albumin/Globulin Ratio 0.4 L (0.9-2) Lipase 370 (73-393) U/L Urine Color Urine Appearance (Clear) Urine pH (4.5-7.5) Ur Specific [place] (1.000-1.030) Urine Protein (Negative) Urine Glucose (UA) (Negative) Urine Ketones (Negative) Urine Blood (Negative) Urine Nitrite (Negative) Urine Bilirubin (Negative) Urine Urobilinogen (Negative) Ur Leukocyte Esterase (Negative) Urine WBC (Auto) (0-5) /hpf Urine RBC (Auto) (0-4) /hpf U Hyaline Cast (Auto) (0-5) /lpf U Epithel Cells (Auto) (0-5) /lpf Urine Bacteria (Auto) (Negative) Ethyl Alcohol mg/dL (0-3) mg/dl 11/19/18 11/19/18 11/19/18 Range/Units 11:15 11:45 12:20 WBC (4.8-10.8) K/uL RBC (4.2-5.4) M/uL Hgb (12.0-16.0) g/dL Hct (37-47) % MCV (80-100) fL MCH (25-34) pg MCHC (32-36) g/dL RDW Std Deviation (36.4-46.3) fL RDW Coeff of Elbert (11.5-14.5) % Plt Count (130-400) K/uL MPV (7.4-10.4) fL Immature Gran % (Auto) % Neut % (Auto) % Lymph % (Auto) % Baker % (Auto) % Eos % (Auto) % Baso % (Auto) % Immature Gran # (Auto) (0.00-0.02) K/uL Neut # (Auto) (1.4-6.5) K/uL Lymph # (Auto) (1.2-3.4) K/uL Baker # (Auto) (0.11-0.59) K/uL Eos # (Auto) (0-0.5) K/uL Baso # (Auto) (0-0.2) K/uL PT (9.0-12.0) Seconds INR (0.9-1.1) APTT (21.0-31.0) Seconds PTT Ratio Sodium (136-145) mmol/L Potassium (3.5-5.1) mmol/L Chloride (98-107) mmol/L Carbon Dioxide (21-32) mmol/L Anion Gap (3-11) BUN (7-18) mg/dl Creatinine (0.6-1.2) mg/dl Est Cr Clr Drug Dosing ml/min Est GFR ( Amer) Est GFR (Non-Af Amer) BUN/Creatinine Ratio (10-20) Glucose (70-99) mg/dl POC Glucose (70-99) POC Lactic Acid Jose 5.50 H (0.90-1.70) mmol/L Calcium (8.5-10.1) mg/dl Magnesium (1.8-2.4) mg/dl Total Bilirubin (0.2-1) mg/dl Direct Bilirubin AST (15-37) U/L ALT (12-78) U/L Alkaline Phosphatase (45-117) U/L Ammonia 57.0 H (11-32) umol/L Total Creatine Kinase (26-192) U/L Troponin I (0-0.045) ng/ml Total Protein (6.4-8.2) gm/dl Albumin (3.4-5.0) gm/dl Globulin (2.5-4.0) gm/dl Albumin/Globulin Ratio (0.9-2) Lipase (73-393) U/L Urine Color [place] Urine Appearance Clear (Clear) Urine pH 5.0 (4.5-7.5) Ur Specific [place] 1.023 (1.000-1.030) Urine Protein Negative (Negative) Urine Glucose (UA) 2+ H (Negative) Urine Ketones Negative (Negative) Urine Blood 1+ H (Negative) Urine Nitrite Positive H (Negative) Urine Bilirubin Negative (Negative) Urine Urobilinogen Negative (Negative) Ur Leukocyte Esterase Trace H (Negative) Urine WBC (Auto) 1-5 (0-5) /hpf Urine RBC (Auto) 5-10 H (0-4) /hpf U Hyaline Cast (Auto) 1-5 (0-5) /lpf U Epithel Cells (Auto) 0-5 (0-5) /lpf Urine Bacteria (Auto) Negative (Negative) Ethyl Alcohol mg/dL (0-3) mg/dl 11/19/18 11/19/18 11/19/18 Range/Units 12:30 16:01 16:01 WBC (4.8-10.8) K/uL RBC (4.2-5.4) M/uL Hgb (12.0-16.0) g/dL Hct (37-47) % MCV (80-100) fL MCH (25-34) pg MCHC (32-36) g/dL RDW Std Deviation (36.4-46.3) fL RDW Coeff of Elbert (11.5-14.5) % Plt Count (130-400) K/uL MPV (7.4-10.4) fL Immature Gran % (Auto) % Neut % (Auto) % Lymph % (Auto) % Baker % (Auto) % Eos % (Auto) % Baso % (Auto) % Immature Gran # (Auto) (0.00-0.02) K/uL Neut # (Auto) (1.4-6.5) K/uL Lymph # (Auto) (1.2-3.4) K/uL Baker # (Auto) (0.11-0.59) K/uL Eos # (Auto) (0-0.5) K/uL Baso # (Auto) (0-0.2) K/uL PT 17.1 H (9.0-12.0) Seconds INR 1.7 H (0.9-1.1) APTT 30.0 (21.0-31.0) Seconds PTT Ratio 1.2 Sodium (136-145) mmol/L Potassium (3.5-5.1) mmol/L Chloride (98-107) mmol/L Carbon Dioxide (21-32) mmol/L Anion Gap (3-11) BUN (7-18) mg/dl Creatinine (0.6-1.2) mg/dl Est Cr Clr Drug Dosing ml/min Est GFR ( Amer) Est GFR (Non-Af Amer) BUN/Creatinine Ratio (10-20) Glucose (70-99) mg/dl POC Glucose (70-99) POC Lactic Acid Jose (0.90-1.70) mmol/L Calcium (8.5-10.1) mg/dl Magnesium (1.8-2.4) mg/dl Total Bilirubin Cancelled 5.3 H (0.2-1) mg/dl Direct Bilirubin Cancelled 3.7 H AST Cancelled 49 H (15-37) U/L ALT Cancelled 30 (12-78) U/L Alkaline Phosphatase Cancelled 153 H (45-117) U/L Ammonia (11-32) umol/L Total Creatine Kinase 63 (26-192) U/L Troponin I (0-0.045) ng/ml Total Protein Cancelled 7.3 (6.4-8.2) gm/dl Albumin Cancelled 1.8 L (3.4-5.0) gm/dl Globulin (2.5-4.0) gm/dl Albumin/Globulin Ratio (0.9-2) Lipase (73-393) U/L Urine Color Urine Appearance (Clear) Urine pH (4.5-7.5) Ur Specific [place] (1.000-1.030) Urine Protein (Negative) Urine Glucose (UA) (Negative) Urine Ketones (Negative) Urine Blood (Negative) Urine Nitrite (Negative) Urine Bilirubin (Negative) Urine Urobilinogen (Negative) Ur Leukocyte Esterase (Negative) Urine WBC (Auto) (0-5) /hpf Urine RBC (Auto) (0-4) /hpf U Hyaline Cast (Auto) (0-5) /lpf U Epithel Cells (Auto) (0-5) /lpf Urine Bacteria (Auto) (Negative) Ethyl Alcohol mg/dL (0-3) mg/dl 11/19/18 11/19/18 Range/Units 16:01 16:24 WBC (4.8-10.8) K/uL RBC (4.2-5.4) M/uL Hgb (12.0-16.0) g/dL Hct (37-47) % MCV (80-100) fL MCH (25-34) pg MCHC (32-36) g/dL RDW Std Deviation (36.4-46.3) fL RDW Coeff of Elbert (11.5-14.5) % Plt Count (130-400) K/uL MPV (7.4-10.4) fL Immature Gran % (Auto) % Neut % (Auto) % Lymph % (Auto) % Baker % (Auto) % Eos % (Auto) % Baso % (Auto) % Immature Gran # (Auto) (0.00-0.02) K/uL Neut # (Auto) (1.4-6.5) K/uL Lymph # (Auto) (1.2-3.4) K/uL Baker # (Auto) (0.11-0.59) K/uL Eos # (Auto) (0-0.5) K/uL Baso # (Auto) (0-0.2) K/uL PT (9.0-12.0) Seconds INR (0.9-1.1) APTT (21.0-31.0) Seconds PTT Ratio Sodium (136-145) mmol/L Potassium (3.5-5.1) mmol/L Chloride (98-107) mmol/L Carbon Dioxide (21-32) mmol/L Anion Gap (3-11) BUN (7-18) mg/dl Creatinine (0.6-1.2) mg/dl Est Cr Clr Drug Dosing ml/min Est GFR ( Amer) Est GFR (Non-Af Amer) BUN/Creatinine Ratio (10-20) Glucose (70-99) mg/dl POC Glucose 171 H (70-99) POC Lactic Acid Jose (0.90-1.70) mmol/L Calcium (8.5-10.1) mg/dl Magnesium (1.8-2.4) mg/dl Total Bilirubin (0.2-1) mg/dl Direct Bilirubin AST (15-37) U/L ALT (12-78) U/L Alkaline Phosphatase (45-117) U/L Ammonia (11-32) umol/L Total Creatine Kinase (26-192) U/L Troponin I (0-0.045) ng/ml Total Protein (6.4-8.2) gm/dl Albumin (3.4-5.0) gm/dl Globulin (2.5-4.0) gm/dl Albumin/Globulin Ratio (0.9-2) Lipase (73-393) U/L Urine Color Urine Appearance (Clear) Urine pH (4.5-7.5) Ur Specific [place] (1.000-1.030) Urine Protein (Negative) Urine Glucose (UA) (Negative) Urine Ketones (Negative) Urine Blood (Negative) Urine Nitrite (Negative) Urine Bilirubin (Negative) Urine Urobilinogen (Negative) Ur Leukocyte Esterase (Negative) Urine WBC (Auto) (0-5) /hpf Urine RBC (Auto) (0-4) /hpf U Hyaline Cast (Auto) (0-5) /lpf U Epithel Cells (Auto) (0-5) /lpf Urine Bacteria (Auto) (Negative) Ethyl Alcohol mg/dL < 3.0 (0-3) mg/dl Imaging Data Radiologist's Impression: Radiology results as stated below per my review and the radiologist's interpretation: XR chest 1V portable FINDINGS: Cardiomediastinal and hilar silhouettes are within normal limits. Calcification the thoracic aortic arch. Mild centrilobular emphysematous changes with mild hyperinflation. No pneumothorax, pleural effusion, focal airspace consolidation or overt pulmonary edema. Nipple shadow projects about the lateral left lung base. Bones of the chest appear grossly intact. Fusion hardware of the lower cervical spine. IMPRESSION: Emphysema without acute process. The above report was generated using voice recognition software. It may contain grammatical, syntax or spelling errors. Electronically signed by: Ángel Alexander M.D. 11/19/2018 1:[address] abd pelvis wo con FINDINGS: Chronic Care Nurse topogram: Cholecystectomy clips. Intramedullary nail fixation of the left femur. Lung bases: No focal infiltrate or nodule at the lung bases. Normal heart size. No pericardial or pleural effusion. Liver: Macronodular morphology suggesting cirrhosis. Normal density. Biliary: Mild biliary ductal prominence likely a reservoir effect in the post cholecystectomy state. Gallbladder surgically absent. Pancreas: Mild parenchymal atrophy. Spleen: Normal noncontrast appearance. Nonenlarged. Adrenal glands: Nonspecific thickening of the adrenal glands. Kidneys and ureters: Nonobstructing lower pole left renal calculi measuring up to 5 mm. Punctate nonobstructing upper pole right renal calculus. Normal noncontrast appearance of the renal parenchyma. Mild right pelvocaliectasis and mild distention of the right ureter. Distal ureters poorly visualized. No left hydronephrosis. Left ureter nondistended. Bladder: Decompressed with a Woodruff catheter. Pelvic organs: Uterus likely surgically absent. Bowel: Mild stool burden throughout normal caliber colon. The appendix is not visualized. No bowel obstruction. Peritoneal cavity: No free fluid or intraperitoneal gas. Lymph nodes: No gross lymphadenopathy allowing for noncontrast technique. Vasculature: Atherosclerosis of the normal caliber abdominal aorta. Varices may be present, not well assessed. Abdominal wall: Body wall edema. Symmetric lower extremity edema. Musculoskeletal: Degenerative changes of the spine. Intramedullary nail fixation of the left femoral neck and proximal metadiaphysis. Posterior matter deformity of the left superior and inferior pubic rami. Acute fractures of the bilateral sacral ala new from prior. Multiple old anterolateral left rib fractures evident. Post procedure changes of kyphoplasty at L2 and L3. Multilevel compression deformities. Mild to moderate compression deformities at L4 and L5 as on prior exam. IMPRESSION: 1. Acute bilateral sacral alar fractures. 2. Possible mild right hydroureteronephrosis, new from prior. No obstructing mass or calculus evident. This may suggest a recently passed calculus. Alternatively, this could represent reactive changes in the setting of upper tract infection. Correlate with urinalysis. 3. Nonobstructing bilateral nephrolithiasis with a greater stone burden on the left. 4. Suspected cirrhosis. 5. No bowel obstruction. Electronically signed by: Flavio Vázquez M.D. 11/19/2018 1:03 PM ECG Data Attestation: I personally reviewed and interpreted this ECG as follows: Indication: abdominal pain Rate (beats per minute): 78 Rhythm: normal sinus Findings: no PVC and no ST elevation Additional Comments: Artifact present. Blood Pressure Blood Pressure Findings: Elevated blood pressure Blood Pressure Disposition: further management by hospitalist [facility] Narrative There is no leukocytosis or concerning anemia. Platelet count slightly low. Renal panel testing shows evidence for acute renal failure. INR is elevated, likely from her liver disease. There was evidence for hepatitis and worsening liver failure by our testing. Ammonia level was elevated, consistent with her liver disease. EKG shows a normal sinus rhythm, no acute ischemia. Cardiac enzyme testing x1 is not consistent with acute cardiac injury. No evidence for pancreatitis by our testing. Urinalysis does show evidence for infection. Lactic acid level was quite elevated at over 5. Bladder scan showed over 1000 cc of urine, a Woodruff catheter was placed. Chest film does not show pneumonia. Abdominal and pelvis CT does not show any evidence for bowel obstruction. There was some subtle hydronephrosis. Sacral fractures were seen that were thought nonsurgical. The patient was aggressively managed. He did receive IV saline for hydration. She received IV Zofran for nausea, IV Ativan for anxiety. She received IV ceftriaxone and then IV Benadryl. I spoke to the patient and her caregiver/friend. The patient does require a hospital stay. She is dehydrated. She has fractured her sacral region with the fall a few days ago. She was in acute urinary retention and has acute renal failure. She has worsening liver failure. She has a UTI. I spoke with case management, I did speak with the on-call hospitalist. The patient does seem to be improving with the treatment provided. Impression & Plan Acute renal failure, Acute urinary retention, Liver failure, Dehydration, Sacral fracture Discharge Plan Visit Data *Final* Discharge Date/Time: 11/19/18 15:10 Chief Complaint: Abdominal Pain Stated Complaint: abd pain ED Provider: Torres Spencer Discharge Problem: Acute renal failure, Acute urinary retention, Liver failure, Dehydration, Sacral fracture Patient Disposition: Admitted As Inpatient Discharge Instructions Interventions: ED Discharge Assessment Last Done: 11/19/18 15:10 The tanya's documentation has been prepared under my direction and personally reviewed by me in its entirety. I confirm that the note above accurately reflects all work, treatment, procedures, and medical decision making performed by me.
[2018-11-19] MEDS ORDERED: cefTRIAXone SODIUM 1,000 MG/50 ML BAG IV STA (12:56)
[2018-11-19 13:05] LABS: INR 1.7 (0.9-1.1); Partial Thromboplastin Ratio 1.2; Prothrombin Time 17.1 Seconds (9.0-12.0)
--- NOTE | 2018-11-19 13:05 | CT Scan Report ---
CT abd pelvis wo con CLINICAL HISTORY: 63 years-old Female presenting with abdominal pain, distention, poss obstr. TECHNIQUE: Multidetector CT of the abdomen and pelvis was performed without the use of intravenous co ntrast. IV contrast: None. A dose lowering technique was used consistent with the principles of ALARA (as low as reasonably achievable). COMPARISON: 07/31/2018. CT DOSE (mGy.cm): The estimated cumulative dose is 472.11 mGycm. FINDINGS: Blog Writer topogram: Cholecystectomy clips. Intramedullary nail fixation of the left femur. Lung bases: No focal infiltrate or nodule at the lung bases. Normal heart size. No pericardial or ple ural effusion. Liver: Macronodular morphology suggesting cirrhosis. Normal density. Biliary: Mild biliary ductal prominence likely a reservoir effect in the post cholecystectomy state. Gallbladder surgically absent. Pancreas: Mild parenchymal atrophy. Spleen: Normal noncontrast appearance. Nonenlarged. Adrenal glands: Nonspecific thickening of the adrenal glands. Kidneys and ureters: Nonobstructing lower pole left renal calculi measuring up to 5 mm. Punctate nono bstructing upper pole right renal calculus. Normal noncontrast appearance of the renal parenchyma. Mi ld right pelvocaliectasis and mild distention of the right ureter. Distal ureters poorly visualized. No left hydronephrosis. Left ureter nondistended. Bladder: Decompressed with a Woodruff catheter. Pelvic organs: Uterus likely surgically absent. Bowel: Mild stool burden throughout normal caliber colon. The appendix is not visualized. No bowel ob struction. Peritoneal cavity: No free fluid or intraperitoneal gas. Lymph nodes: No gross lymphadenopathy allowing for noncontrast technique. Vasculature: Atherosclerosis of the normal caliber abdominal aorta. Varices may be present, not well assessed. Abdominal wall: Body wall edema. Symmetric lower extremity edema. Musculoskeletal: Degenerative changes of the spine. Intramedullary nail fixation of the left femoral neck and proximal metadiaphysis. Posterior matter deformity of the left superior and inferior pubic r ami. Acute fractures of the bilateral sacral ala new from prior. Multiple old anterolateral left rib fractures evident. Post procedure changes of kyphoplasty at L2 and L3. Multilevel compression deformi ties. Mild to moderate compression deformities at L4 and L5 as on prior exam. IMPRESSION: 1. Acute bilateral sacral alar fractures. 2. Possible mild right hydroureteronephrosis, new from prior. No obstructing mass or calculus eviden t. This may suggest a recently passed calculus. Alternatively, this could represent reactive changes in the setting of upper tract infection. Correlate with urinalysis. 3. Nonobstructing bilateral nephrolithiasis with a greater stone burden on the left. 4. Suspected cirrhosis. 5. No bowel obstruction. Electronically signed by: Flavio Vázquez M.D. 11/19/2018 1:03 PM
--- NOTE | 2018-11-19 13:35 | XRay Report ---
XR chest 1V portable HISTORY: 63 years-old Female sob, weak acute shortness of breath with weakness COMPARISON: Chest radiograph 09/25/2017, CT chest 07/31/2018, CT abdomen and pelvis November 19, 2018 TECHNIQUE: Portable AP view of the chest FINDINGS: Cardiomediastinal and hilar silhouettes are within normal limits. Calcification the thoracic aortic a rch. Mild centrilobular emphysematous changes with mild hyperinflation. No pneumothorax, pleural effu helen, focal airspace consolidation or overt pulmonary edema. Nipple shadow projects about the lateral left lung base. Bones of the chest appear grossly intact. Fusion hardware of the lower cervical spine. IMPRESSION: Emphysema without acute process. The above report was generated using voice recognition software. It may contain grammatical, syntax o r spelling errors. Electronically signed by: Ángel Alexander M.D. 11/19/2018 1:34 PM
--- NOTE | 2018-11-19 14:07 | History & Physical Report ---
Date of Service November 19, 2018 Assessment & Plan (1) Hepatic encephalopathy: - Admit to PCU/tele -ammonia=57, will start patient on lactulose q1h until starts to have loose bowel movements to attempt to improve hepatic encephalopathy, titrate for 2-3 BM daily -LFTs: AST 56, ALT 35, alk phos 176, total bili 5.5, INR 1.7, follow in am to ensure trending down -Continue the patient on Xifaxan 550 mg bid -Consider GI consult -Checking tox screen and etoh to r/o other causes of encephalopathy (2) Liver failure: (3) Cirrhosis, nonalcoholic: (4) Chronic hepatitis C: -Follows with [facility] hepatology as an outpatient, had been on Lasix , Aldactone, lactulose and Xifaxan, however did not see lactulose as an outpatient medication -We will need to obtain medicine list from family and confirm her meds - s/p Harvoni tx in 2014 (5) Transaminitis: -Follow morning labs both INR and LFTs -Consider consult GI for further recs (6) Acute urinary retention: -Patient found to have 1 L out of urine upon admission into the ER -Appears to be hematuria, started on ceftriaxone, will continue for now -CT shows that patient may have recently passed a stone, with large stone burden on the left side. There is also mild hydroureteronephrosis. -UA appears infected, follow sensitivities -Joel catheter placed in ER, continue (7) Acute renal failure: -Creatinine equals 3.0, baseline runs around 0.78 -Continue NSS at 125 mL/h (8) Sacral fracture: -CT imaging reviewed, discussed with the ER and there is apparently no surgical fixation required with this type of fracture -Consult orthopedics for further recs, weightbearing status, etc -Patient will need pain management prior to discharge, avoid narcotics at this time due to hepatic encephalopathy. -PT/OT -Check ck now to r/o rhabdomyolysis (9) Migraine: -Patient has severe migraine issues, has followed with Dr. Bowles in the outpatient setting -Chronic pain of face from skin cancer adds to migraine issues -Will hold current outpatient medication of tramadol due to hepatic encephalopathy as above, has used oxycodone in the past, however not on this now. 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 - Iss with accuchecks achs - Confirm outpt med list (12) Osteoporosis: (13) Skin cancer of face: - Status unknown, pt uses tramadol per outpt notes for pain relief and this also adds to migraines. (14) Tobacco use: - Obtain socail hx when mentating, no nicotine patch at this time. (15) DVT prophylaxis: - teds, scds, no chemical due to hematuria History of Present Illness Chief Complaint: s/p fall, confusion Primary Care Provider: Franco Singh This is a 63 yo F with PMHx of liver cirrhosis - nonalcoholic, chronic hepatitis C, s/p Harvoni tx in 2014, invasive skin cancer, DM II which is poorly controlled, COPD, hx of tobacco abuse, generlized epilepsy, migraines, osteoporosis, thrombocytopenia, anxiety, depression, who presents to the ER after being found on the ground at home, after an unknown amount of time. There is no family present to support the history. Pt responds with one word answers but also answered the question- what year is it, with "finding anurag" to nursing staff. She can tell me she fell, but no further details. Pts LFTs are elevated, ammonia level = 57, she was also found to have urinary retention and has 1050 mL out hematuria with joel catheter placement. Imaging reveals acute bilateral pelvic fractures, mild R hydroureteronephrosis. No obstructing mass or calculus evident. This may suggest a recently passed calculus vs reactive changes in the setting of upper tract infection. Nonobstructing bilateral nephrolithiasis with a greater stone burden on the left. Allergies Allergy/AdvReac Type Severity Reaction Status Date / Time coconut Allergy Unknown ANAPHYLAXIS Verified 11/19/18 11:15 modafinil AdvReac Severe MAKES HYPER Verified 11/19/18 11:15 sulfamethoxazole AdvReac Intermediate PT STATES Verified 11/19/18 11:15 NOT GOOD FOR LIVER zolpidem AdvReac Intermediate LIVER Verified 11/19/18 11:15 PROBLEMS morphine AdvReac Mild hallucinati Verified 11/19/18 11:15 ons Home Medications Home Medications Medication Instructions Recorded Confirmed Type alendronate 70 mg PO WK 07/31/18 11/19/18 History ketoconazole 1 applic TOPICAL WK 07/31/18 11/19/18 History loperamide 2 mg PO 5XD 07/31/18 11/19/18 History spironolactone 1 tab PO DAILY 07/31/18 11/19/18 History cholestyramine-aspartame 1 packet PO DAILY 11/19/18 11/19/18 History [Prevalite] clonidine HCl 0.1 mg PO BID 11/19/18 11/19/18 History furosemide 20 mg PO DAILY 11/19/18 11/19/18 History pantoprazole 40 mg PO BID 11/19/18 11/19/18 History rifaximin [Xifaxan] 550 mg PO BID 11/19/18 11/19/18 History tramadol 50 mg PO BID PRN 11/19/18 11/19/18 History venlafaxine 150 mg PO BID 11/19/18 11/19/18 History Past Med/Surg History Medical History Tobacco use Skin cancer of face Cirrhosis, nonalcoholic Chronic hepatitis C Transaminitis Acute renal failure (Acute) Acute urinary retention (Acute) Liver failure (Acute) Sacral fracture (Acute) Migraine (Acute) Generalized-onset seizures (Resolved 01/23/13) Hepatic encephalopathy (Acute 01/23/13) Osteoporosis (Chronic Unknown) Generalized convulsive epilepsy (Chronic Unknown) Asthma (Chronic) Cataracts, bilateral Diabetes mellitus with hyperglycemia (Resolved) Atrial fibrillation with rapid ventricular response Family History Other No significant family history Social History Current Living Situation: Alone Current Living Situation Comment: home health nurse visits Other Information That Helps Us Care for You: No Feels Safe at Home: Yes Smoking Status: Unknown if ever smoked Beliefs That Will Affect Care: None Preferred Language: Persian Communication Ability: confused Lithoplate Maker Required: No Review of Systems Unobtainable due to cognitive status Physical Exam 2 Vital Signs (Past 24 Hours): Last Vital Signs Temp 36.6 C 11/19/18 10:59 Pulse 81 11/19/18 12:01 Resp 34 H 11/19/18 12:01 BP 163/86 H 11/19/18 12:01 Pulse Ox 100 11/19/18 12:01 Physical Exam: General: awake, altert, answers questions occasionally with one word answers, NAD, Head: Normocephalic, atraumatic ENT: PERRL, + left eye turned inward, food bolus in mouth and around teeth, unable to visualize pharyx, mucous membranes moist Chest: Clear to auscultation, diminished breath sounds at bases, on room air, no adventitious breath sounds Cardiac: Regular rate and rhythm, no murmur, no JVD, normal peripheral pulses, good capillary refill Abdominal: NABS x 4 quadrants, soft, nontender to palpation, no rebound, guarding or tenderness : joel cath draining dark red urine with clots Extremities: + Multiple abraisions and ecchymosis, several small skin tears over BLE, no peripheral edema or erythema, calfs nontender to palpation Neuro: alert, awake, not oriented to place or time, does not tell me her name, speech is clear but with one word answers and requires prodding of questions, does not follow majority of commands, smiles inappropriately during exam Constitutional: + cachectic and cooperative Eyes: normal visual marie by confrontation and + anicteric sclerae Neck: normal visual inspection and trachea midline Respiratory: normal respiratory effort, lungs clear to auscultation Cardiovascular: Rate/Rhythm: regular rate and regular rhythm Gastrointestinal (Abdomen): Inspection/Auscultation: + abdomen distended Percussion/Palpation: + abdomen tender (diffuse but mild) and abdomen soft Musculoskeletal: Head/Neck/Chest: normocephalic and head atraumatic Neg for peripheral LE edema, + pedal pulses Skin: no rashes, warm and dry Neurologic: awake (lying with eyes closed and appears comfortable when I walk into the room, awakens easily to name but is drowsy in responses) and + confused (answers yes/no questions but some difficulty answering more complicated questions) Speech / Cognition: + abnormal speech (slowed) Psychiatric: Orientation: alert Affect: + blunted affect Lymphatic: Exam as done by Antoinette Blanco DO Results & Data Diagnostic Findings CT abd pelvis wo con CLINICAL HISTORY: 63 years-old Female presenting with abdominal pain, distention , poss obstr. TECHNIQUE: Multidetector CT of the abdomen and pelvis was performed without the use of intravenous contrast. IV contrast: None. A dose lowering technique was used consistent with the principles of ALARA (as low as reasonably achievable). COMPARISON: 07/31/2018. CT DOSE (mGy.cm): The estimated cumulative dose is 472.11 mGycm. FINDINGS: Tiler'S Assistant topogram: Cholecystectomy clips. Intramedullary nail fixation of the left femur. Lung bases: No focal infiltrate or nodule at the lung bases. Normal heart size. No pericardial or pleural effusion. Liver: Macronodular morphology suggesting cirrhosis. Normal density. Biliary: Mild biliary ductal prominence likely a reservoir effect in the post cholecystectomy state. Gallbladder surgically absent. Pancreas: Mild parenchymal atrophy. Spleen: Normal noncontrast appearance. Nonenlarged. Adrenal glands: Nonspecific thickening of the adrenal glands. Kidneys and ureters: Nonobstructing lower pole left renal calculi measuring up to 5 mm. Punctate nonobstructing upper pole right renal calculus. Normal noncontrast appearance of the renal parenchyma. Mild right pelvocaliectasis and mild distention of the right ureter. Distal ureters poorly visualized. No left hydronephrosis. Left ureter nondistended. Bladder: Decompressed with a Joel catheter. Pelvic organs: Uterus likely surgically absent. Bowel: Mild stool burden throughout normal caliber colon. The appendix is not visualized. No bowel obstruction. Peritoneal cavity: No free fluid or intraperitoneal gas. Lymph nodes: No gross lymphadenopathy allowing for noncontrast technique. Vasculature: Atherosclerosis of the normal caliber abdominal aorta. Varices may be present, not well assessed. Abdominal wall: Body wall edema. Symmetric lower extremity edema. Musculoskeletal: Degenerative changes of the spine. Intramedullary nail fixation of the left femoral neck and proximal metadiaphysis. Posterior matter deformity of the left superior and inferior pubic rami. Acute fractures of the bilateral sacral ala new from prior. Multiple old anterolateral left rib fractures evident. Post procedure changes of kyphoplasty at L2 and L3. Multilevel compression deformities. Mild to moderate compression deformities at L4 and L5 as on prior exam. IMPRESSION: 1. Acute bilateral sacral alar fractures. 2. Possible mild right hydroureteronephrosis, new from prior. No obstructing mass or calculus evident. This may suggest a recently passed calculus. Alternatively, this could represent reactive changes in the setting of upper tract infection. Correlate with urinalysis. 3. Nonobstructing bilateral nephrolithiasis with a greater stone burden on the left. 4. Suspected cirrhosis. 5. No bowel obstruction. XR chest 1V portable HISTORY: 63 years-old Female sob, weak acute shortness of breath with weakness COMPARISON: Chest radiograph 09/25/2017, CT chest 07/31/2018, CT abdomen and pelvis November 19, 2018 TECHNIQUE: Portable AP view of the chest FINDINGS: Cardiomediastinal and hilar silhouettes are within normal limits. Calcification the thoracic aortic arch. Mild centrilobular emphysematous changes with mild hyperinflation. No pneumothorax, pleural effusion, focal airspace consolidation or overt pulmonary edema. Nipple shadow projects about the lateral left lung base. Bones of the chest appear grossly intact. Fusion hardware of the lower cervical spine. IMPRESSION: Emphysema without acute process. ECG Additional Comments: 19-NOV-2018 10:51:41 [facility] Poor data quality, interpretation may be adversely affected Normal sinus rhythm Right atrial enlargement Prolonged QT Abnormal ECG When compared with ECG of 31-JUL-2018 06:59, Premature atrial complexes are no longer Present Vent. rate 78 BPM NC interval 138 ms QRS duration 72 ms QT/QTc 434/494 ms P-R-T axes 85 83 83 Code Status & VTE Plan Code Status Full Supervising Physician Co-Signing Physician Notes Pt seen and examined by me. Denies chest pain. Feels SOB. Denies home O2 use. Seems to have abd pain but cannot further qualify this. Denies mouth pain. Agree with HPI/ROS as noted by PA See above for my exam in PE section Agree with plan as outlined above UTI with urinary retention noted in ED, ceftriaxone Increased LFTs in the setting of liver disease, continue with lactulose b/l sacral fx, nonoperable Mouth care for blisters, denies pain Per ED physician, pt with caregiver at home, does not want aggressive tx Per PA, pt was unable to be aroused on her exam s/p antivan and benadryl in the ED for agitation. Nursing called PA later after pt was moved from the ED stating pt was writing in pain. This was about 15 minutes prior to my exam. No further pain meds ordered by PA given prior lethargy s/p meds in the ED. Agree with this plan given pt is still unable to fully answer questions or stay awake for prolonged discussion. _ (1) Acute renal failure Acute renal failure type: unspecified Qualified Code(s): N17.9 - Acute kidney failure, unspecified (2) Liver failure Hepatic coma status: without hepatic coma Liver failure chronicity: acute Qualified Code(s): K72.00 - Acute and subacute hepatic failure without coma (3) Sacral fracture Encounter type: initial encounter Fracture alignment: Fracture healing: Fracture morphology: unspecified fracture morphology Fracture type: closed Zone of sacrum fracture: Qualified Code(s): S32.10XA - Unspecified fracture of sacrum, initial encounter for closed fracture
[2018-11-19] MEDS ORDERED: GLUCOSE 10 TABS/TUBE PO PRN (15:43)
[2018-11-19] MEDS ORDERED: ONDANSETRON INJ 2 MG/ML 2 ML VIAL IV PRN (15:43)
[2018-11-19] MEDS ORDERED: CARBOHYDRATES FOR HYPOGLYCEMIA PO PRN (15:43)
[2018-11-19] MEDS ORDERED: DEXTROSE 50% 50 ML SYRINGE IV PRN (15:43)
[2018-11-19] MEDS ORDERED: GLUCAGON FOR INJ 1 MG VIAL SQ PRN (15:43)
[2018-11-19] MEDS ORDERED: GLUCOSE 40% GEL 15 GM TUBE PO PRN (15:43)
[2018-11-19] MEDS ORDERED: INSULIN ASPART 100 UNITS/ML 3 ML PEN SC SCH (16:30)
[2018-11-19] MEDS: SODIUM CHLORIDE 0.9% 1000ML 1,000 ML IV SCH ×2 (16:41→23:40)
[2018-11-19 16:50] LABS: Albumin Level 1.8 gm/dl (3.4-5.0); Bilirubin Direct 3.7 mg/dl (0-0.2); Bilirubin,Total 5.3 mg/dl (0.2-1); Total Protein 7.3 gm/dl (6.4-8.2)
[2018-11-19] MEDS: BACITRACIN OINT 15 GM TUBE EXT SCH (17:16)
[2018-11-19] MEDS: LACTULOSE SYRUP 30 GM/45 ML UDP PO SCH ×8 (17:17→23:40)
[2018-11-19] MEDS: ACETAMINOPHEN 325 MG TAB PO PRN (17:27)
[2018-11-19] MEDS: TRAMADOL HCL 50 MG TABLET PO PRN (17:54)
[2018-11-19 18:09] LABS: Amphetamines+Metham, Urine Neg (Neg); Barbiturates, Urine Neg (Neg); Benzodiazepine, Urine Neg (Neg); Cocaine, Urine Neg (Neg); MDMA (Ecstacy), Urine Neg (Neg); Methadone, Urine Neg (Neg); Opiate, Urine Neg (Neg); Phencyclidine, Urine Neg (Neg)
--- NOTE | 2018-11-19 18:39 | Orthopedic Consultation ---
Date of Consultation November 19, 2018 Assessment & Plan (1) Tobacco use: (2) Skin cancer of face: (3) Chronic hepatitis C: (4) Transaminitis: (5) Acute renal failure: (6) Acute urinary retention: (7) Liver failure: (8) Dehydration: (9) Sacral fracture: From orthopedic standpoint, this is non-surgical. NWBing B LE is recommended other than for transfers from bed to chair. Tramadol prn pain per medicine orders. Positioning in bed to prevent bed sores. Main concern is if patient has neuro compromise and this will need to be re-assessed in AM as patient was incoherent during exam and not responding to commands/questions. Present on Admission?: Yes (10) DVT prophylaxis: (11) Cirrhosis, nonalcoholic: History of Present Illness Reason for Consultation: Bilateral Sacral Fractures Requesting Physician: Dr Bryant Attending Physician: Antoinette Blanco, DO History of Present Illness This is a 63 yo F with PMHx of liver cirrhosis - nonalcoholic, chronic hepatitis C, invasive skin cancer, DM II which is poorly controlled, COPD, hx of tobacco abuse, migraines, osteoporosis, thrombocytopenia, anxiety, depression, who presented to the ED after being found on the ground at home, after an unknown amount of time by a caregiver. Patient lives alone. There is no family present to support the history. Hospital Aide sitting with patient. Per nurse patient has been in and out of being coherent. Was thrashing in the ED. Ativan was given. She has tramadol ordered for pain. She has been seen by Medicine. Allergies Allergy/AdvReac Type Severity Reaction Status Date / Time coconut Allergy Unknown ANAPHYLAXIS Verified 11/19/18 11:15 modafinil AdvReac Severe MAKES HYPER Verified 11/19/18 11:15 sulfamethoxazole AdvReac Intermediate PT STATES Verified 11/19/18 11:15 NOT GOOD FOR LIVER zolpidem AdvReac Intermediate LIVER Verified 11/19/18 11:15 PROBLEMS morphine AdvReac Mild hallucinati Verified 11/19/18 11:15 ons Home Medications Home Medications Medication Instructions Recorded Confirmed Type alendronate 70 mg PO WK 07/31/18 11/19/18 History ketoconazole 1 applic TOPICAL WK 07/31/18 11/19/18 History loperamide 2 mg PO 5XD 07/31/18 11/19/18 History spironolactone 1 tab PO DAILY 07/31/18 11/19/18 History cholestyramine-aspartame 1 packet PO DAILY 11/19/18 11/19/18 History [Prevalite] clonidine HCl 0.1 mg PO BID 11/19/18 11/19/18 History furosemide 20 mg PO DAILY 11/19/18 11/19/18 History pantoprazole 40 mg PO BID 11/19/18 11/19/18 History rifaximin [Xifaxan] 550 mg PO BID 11/19/18 11/19/18 History tramadol 50 mg PO BID PRN 11/19/18 11/19/18 History venlafaxine 150 mg PO BID 11/19/18 11/19/18 History Patient History Medical History Tobacco use Skin cancer of face Cirrhosis, nonalcoholic Chronic hepatitis C Transaminitis Acute renal failure (Acute) Acute urinary retention (Acute) Liver failure (Acute) Sacral fracture (Acute) Migraine (Acute) Generalized-onset seizures (Resolved 01/23/13) Hepatic encephalopathy (Acute 01/23/13) Osteoporosis (Chronic Unknown) Generalized convulsive epilepsy (Chronic Unknown) Asthma (Chronic) Cataracts, bilateral Diabetes mellitus with hyperglycemia (Resolved) Atrial fibrillation with rapid ventricular response Family History Other No significant family history Social History Current Living Situation: Alone Current Living Situation Comment: home health nurse visits Other Information That Helps Us Care for You: No Feels Safe at Home: Yes Smoking Status: Unknown if ever smoked Beliefs That Will Affect Care: None Preferred Language: Spanish Communication Ability: confused Research Epidemiologist Required: No Review of Systems Patient incohorent during exam. Unable to answer or respond to questions Physical Exam 2 Vital Signs (Past 24 Hours): Last Vital Signs Temp 36.7 C 11/19/18 16:02 Pulse 86 11/19/18 16:02 Resp 20 11/19/18 16:02 BP 134/78 11/19/18 16:02 Pulse Ox 97 11/19/18 16:02 Physical Exam: Patient laying in bed. Appearing older than her stated age of 63. Constintutional: + cachetic, incoherent, not responding to commands or questions Head: Normocephalic, atraumatic Extremities: + Multiple abraisions and ecchymosis, several small skin tears over BLE, no peripheral edema or erythema, calfs soft, B LE SCDs donned Musculoskeletal: No pain with B LE log rolling or hip/knee ROM Neurologic: Not responding to pain stimuli to B LE; not responding to commands to wiggle toes/feet Vascular: Palpable dorsalis pedis and posterior tibial pulses bilaterally. Good capillary refill. Results & Data Laboratory Results 11/19/18 11/19/18 11/19/18 Range/Units 16:45 16:25 16:24 WBC (4.8-10.8) K/uL RBC (4.2-5.4) M/uL Hgb (12.0-16.0) g/dL Hct (37-47) % MCV (80-100) fL MCH (25-34) pg MCHC (32-36) g/dL RDW Std Deviation (36.4-46.3) fL RDW Coeff of Elbert (11.5-14.5) % Plt Count (130-400) K/uL MPV (7.4-10.4) fL Immature Gran % (Auto) % Neut % (Auto) % Lymph % (Auto) % [place] % (Auto) % Eos % (Auto) % Baso % (Auto) % Immature Gran # (Auto) (0.00-0.02) K/uL Neut # (Auto) (1.4-6.5) K/uL Lymph # (Auto) (1.2-3.4) K/uL [place] # (Auto) (0.11-0.59) K/uL Eos # (Auto) (0-0.5) K/uL Baso # (Auto) (0-0.2) K/uL PT (9.0-12.0) Seconds INR (0.9-1.1) APTT (21.0-31.0) Seconds PTT Ratio Sodium (136-145) mmol/L Potassium (3.5-5.1) mmol/L Chloride (98-107) mmol/L Carbon Dioxide (21-32) mmol/L Anion Gap (3-11) BUN (7-18) mg/dl Creatinine (0.6-1.2) mg/dl Est Cr Clr Drug Dosing ml/min Est GFR ( Amer) Est GFR (Non-Af Amer) BUN/Creatinine Ratio (10-20) Glucose (70-99) mg/dl POC Glucose 171 H (70-99) POC Lactic Acid Jose (0.90-1.70) mmol/L Calcium (8.5-10.1) mg/dl Magnesium (1.8-2.4) mg/dl Total Bilirubin (0.2-1) mg/dl Direct Bilirubin AST (15-37) U/L ALT (12-78) U/L Alkaline Phosphatase (45-117) U/L Ammonia (11-32) umol/L Total Creatine Kinase (26-192) U/L Troponin I (0-0.045) ng/ml Total Protein (6.4-8.2) gm/dl Albumin (3.4-5.0) gm/dl Globulin (2.5-4.0) gm/dl Albumin/Globulin Ratio (0.9-2) Lipase (73-393) U/L Urine Color Urine Appearance (Clear) Urine pH (4.5-7.5) Ur Specific [place] (1.000-1.030) Urine Protein (Negative) Urine Glucose (UA) (Negative) Urine Ketones (Negative) Urine Blood (Negative) Urine Nitrite (Negative) Urine Bilirubin (Negative) Urine Urobilinogen (Negative) Ur Leukocyte Esterase (Negative) Urine WBC (Auto) (0-5) /hpf Urine RBC (Auto) (0-4) /hpf U Hyaline Cast (Auto) (0-5) /lpf U Epithel Cells (Auto) (0-5) /lpf Urine Bacteria (Auto) (Negative) Nasal Screen MRSA (PCR) Negative (Negative) Urine Opiates Screen Neg (Neg) Ur Methadone, Qual Neg (Neg) Urine Barbiturates Neg (Neg) Ur Phencyclidine (PCP) Neg (Neg) U Amphetamin/Meth Scrn Neg (Neg) MDMA (Ecstasy) Screen Neg (Neg) U Benzodiazepines Scrn Neg (Neg) Ur Cocaine Metabolite Neg (Neg) U Marijuana (THC) Screen Neg (Neg) Ethyl Alcohol mg/dL (0-3) mg/dl 11/19/18 11/19/18 11/19/18 Range/Units 16:01 16:01 16:01 WBC (4.8-10.8) K/uL RBC (4.2-5.4) M/uL Hgb (12.0-16.0) g/dL Hct (37-47) % MCV (80-100) fL MCH (25-34) pg MCHC (32-36) g/dL RDW Std Deviation (36.4-46.3) fL RDW Coeff of Elbert (11.5-14.5) % Plt Count (130-400) K/uL MPV (7.4-10.4) fL Immature Gran % (Auto) % Neut % (Auto) % Lymph % (Auto) % [place] % (Auto) % Eos % (Auto) % Baso % (Auto) % Immature Gran # (Auto) (0.00-0.02) K/uL Neut # (Auto) (1.4-6.5) K/uL Lymph # (Auto) (1.2-3.4) K/uL [place] # (Auto) (0.11-0.59) K/uL Eos # (Auto) (0-0.5) K/uL Baso # (Auto) (0-0.2) K/uL PT (9.0-12.0) Seconds INR (0.9-1.1) APTT (21.0-31.0) Seconds PTT Ratio Sodium (136-145) mmol/L Potassium (3.5-5.1) mmol/L Chloride (98-107) mmol/L Carbon Dioxide (21-32) mmol/L Anion Gap (3-11) BUN (7-18) mg/dl Creatinine (0.6-1.2) mg/dl Est Cr Clr Drug Dosing ml/min Est GFR ( Amer) Est GFR (Non-Af Amer) BUN/Creatinine Ratio (10-20) Glucose (70-99) mg/dl POC Glucose (70-99) POC Lactic Acid Jose (0.90-1.70) mmol/L Calcium (8.5-10.1) mg/dl Magnesium (1.8-2.4) mg/dl Total Bilirubin 5.3 H Cancelled (0.2-1) mg/dl Direct Bilirubin 3.7 H Cancelled AST 49 H Cancelled (15-37) U/L ALT 30 Cancelled (12-78) U/L Alkaline Phosphatase 153 H Cancelled (45-117) U/L Ammonia (11-32) umol/L Total Creatine Kinase 63 (26-192) U/L Troponin I (0-0.045) ng/ml Total Protein 7.3 Cancelled (6.4-8.2) gm/dl Albumin 1.8 L Cancelled (3.4-5.0) gm/dl Globulin (2.5-4.0) gm/dl Albumin/Globulin Ratio (0.9-2) Lipase (73-393) U/L Urine Color Urine Appearance (Clear) Urine pH (4.5-7.5) Ur Specific [place] (1.000-1.030) Urine Protein (Negative) Urine Glucose (UA) (Negative) Urine Ketones (Negative) Urine Blood (Negative) Urine Nitrite (Negative) Urine Bilirubin (Negative) Urine Urobilinogen (Negative) Ur Leukocyte Esterase (Negative) Urine WBC (Auto) (0-5) /hpf Urine RBC (Auto) (0-4) /hpf U Hyaline Cast (Auto) (0-5) /lpf U Epithel Cells (Auto) (0-5) /lpf Urine Bacteria (Auto) (Negative) Nasal Screen MRSA (PCR) (Negative) Urine Opiates Screen (Neg) Ur Methadone, Qual (Neg) Urine Barbiturates (Neg) Ur Phencyclidine (PCP) (Neg) U Amphetamin/Meth Scrn (Neg) MDMA (Ecstasy) Screen (Neg) U Benzodiazepines Scrn (Neg) Ur Cocaine Metabolite (Neg) U Marijuana (THC) Screen (Neg) Ethyl Alcohol mg/dL < 3.0 (0-3) mg/dl 11/19/18 11/19/18 11/19/18 Range/Units 12:30 12:20 11:45 WBC (4.8-10.8) K/uL RBC (4.2-5.4) M/uL Hgb (12.0-16.0) g/dL Hct (37-47) % MCV (80-100) fL MCH (25-34) pg MCHC (32-36) g/dL RDW Std Deviation (36.4-46.3) fL RDW Coeff of Elbert (11.5-14.5) % Plt Count (130-400) K/uL MPV (7.4-10.4) fL Immature Gran % (Auto) % Neut % (Auto) % Lymph % (Auto) % [place] % (Auto) % Eos % (Auto) % Baso % (Auto) % Immature Gran # (Auto) (0.00-0.02) K/uL Neut # (Auto) (1.4-6.5) K/uL Lymph # (Auto) (1.2-3.4) K/uL [place] # (Auto) (0.11-0.59) K/uL Eos # (Auto) (0-0.5) K/uL Baso # (Auto) (0-0.2) K/uL PT 17.1 H (9.0-12.0) Seconds INR 1.7 H (0.9-1.1) APTT 30.0 (21.0-31.0) Seconds PTT Ratio 1.2 Sodium (136-145) mmol/L Potassium (3.5-5.1) mmol/L Chloride (98-107) mmol/L Carbon Dioxide (21-32) mmol/L Anion Gap (3-11) BUN (7-18) mg/dl Creatinine (0.6-1.2) mg/dl Est Cr Clr Drug Dosing ml/min Est GFR ( Amer) Est GFR (Non-Af Amer) BUN/Creatinine Ratio (10-20) Glucose (70-99) mg/dl POC Glucose (70-99) POC Lactic Acid Jose (0.90-1.70) mmol/L Calcium (8.5-10.1) mg/dl Magnesium (1.8-2.4) mg/dl Total Bilirubin (0.2-1) mg/dl Direct Bilirubin AST (15-37) U/L ALT (12-78) U/L Alkaline Phosphatase (45-117) U/L Ammonia 57.0 H (11-32) umol/L Total Creatine Kinase (26-192) U/L Troponin I (0-0.045) ng/ml Total Protein (6.4-8.2) gm/dl Albumin (3.4-5.0) gm/dl Globulin (2.5-4.0) gm/dl Albumin/Globulin Ratio (0.9-2) Lipase (73-393) U/L Urine Color [place] Urine Appearance Clear (Clear) Urine pH 5.0 (4.5-7.5) Ur Specific [place] 1.023 (1.000-1.030) Urine Protein Negative (Negative) Urine Glucose (UA) 2+ H (Negative) Urine Ketones Negative (Negative) Urine Blood 1+ H (Negative) Urine Nitrite Positive H (Negative) Urine Bilirubin Negative (Negative) Urine Urobilinogen Negative (Negative) Ur Leukocyte Esterase Trace H (Negative) Urine WBC (Auto) 1-5 (0-5) /hpf Urine RBC (Auto) 5-10 H (0-4) /hpf U Hyaline Cast (Auto) 1-5 (0-5) /lpf U Epithel Cells (Auto) 0-5 (0-5) /lpf Urine Bacteria (Auto) Negative (Negative) Nasal Screen MRSA (PCR) (Negative) Urine Opiates Screen (Neg) Ur Methadone, Qual (Neg) Urine Barbiturates (Neg) Ur Phencyclidine (PCP) (Neg) U Amphetamin/Meth Scrn (Neg) MDMA (Ecstasy) Screen (Neg) U Benzodiazepines Scrn (Neg) Ur Cocaine Metabolite (Neg) U Marijuana (THC) Screen (Neg) Ethyl Alcohol mg/dL (0-3) mg/dl 11/19/18 11/19/18 11/19/18 Range/Units 11:15 11:10 11:10 WBC (4.8-10.8) K/uL RBC (4.2-5.4) M/uL Hgb (12.0-16.0) g/dL Hct (37-47) % MCV (80-100) fL MCH (25-34) pg MCHC (32-36) g/dL RDW Std Deviation (36.4-46.3) fL RDW Coeff of Elbert (11.5-14.5) % Plt Count (130-400) K/uL MPV (7.4-10.4) fL Immature Gran % (Auto) % Neut % (Auto) % Lymph % (Auto) % [place] % (Auto) % Eos % (Auto) % Baso % (Auto) % Immature Gran # (Auto) (0.00-0.02) K/uL Neut # (Auto) (1.4-6.5) K/uL Lymph # (Auto) (1.2-3.4) K/uL [place] # (Auto) (0.11-0.59) K/uL Eos # (Auto) (0-0.5) K/uL Baso # (Auto) (0-0.2) K/uL PT (9.0-12.0) Seconds INR (0.9-1.1) APTT (21.0-31.0) Seconds PTT Ratio Sodium 141 (136-145) mmol/L Potassium 4.9 (3.5-5.1) mmol/L Chloride 109 H (98-107) mmol/L Carbon Dioxide 21 (21-32) mmol/L Anion Gap 11.0 (3-11) BUN 94 H (7-18) mg/dl Creatinine 3.00 H (0.6-1.2) mg/dl Est Cr Clr Drug Dosing 17.5 ml/min Est GFR ( Amer) 18.1 Est GFR (Non-Af Amer) 15.7 BUN/Creatinine Ratio 31.4 H (10-20) Glucose 182 H (70-99) mg/dl POC Glucose (70-99) POC Lactic Acid Jose 5.50 H (0.90-1.70) mmol/L Calcium 8.0 L (8.5-10.1) mg/dl Magnesium 3.1 H (1.8-2.4) mg/dl Total Bilirubin 5.5 H (0.2-1) mg/dl Direct Bilirubin AST 56 H (15-37) U/L ALT 35 (12-78) U/L Alkaline Phosphatase 176 H (45-117) U/L Ammonia (11-32) umol/L Total Creatine Kinase (26-192) U/L Troponin I < 0.015 (0-0.045) ng/ml Total Protein 8.3 H (6.4-8.2) gm/dl Albumin 2.2 L (3.4-5.0) gm/dl Globulin 6.1 H (2.5-4.0) gm/dl Albumin/Globulin Ratio 0.4 L (0.9-2) Lipase 370 (73-393) U/L Urine Color Urine Appearance (Clear) Urine pH (4.5-7.5) Ur Specific [place] (1.000-1.030) Urine Protein (Negative) Urine Glucose (UA) (Negative) Urine Ketones (Negative) Urine Blood (Negative) Urine Nitrite (Negative) Urine Bilirubin (Negative) Urine Urobilinogen (Negative) Ur Leukocyte Esterase (Negative) Urine WBC (Auto) (0-5) /hpf Urine RBC (Auto) (0-4) /hpf U Hyaline Cast (Auto) (0-5) /lpf U Epithel Cells (Auto) (0-5) /lpf Urine Bacteria (Auto) (Negative) Nasal Screen MRSA (PCR) (Negative) Urine Opiates Screen (Neg) Ur Methadone, Qual (Neg) Urine Barbiturates (Neg) Ur Phencyclidine (PCP) (Neg) U Amphetamin/Meth Scrn (Neg) MDMA (Ecstasy) Screen (Neg) U Benzodiazepines Scrn (Neg) Ur Cocaine Metabolite (Neg) U Marijuana (THC) Screen (Neg) Ethyl Alcohol mg/dL (0-3) mg/dl 11/19/18 Range/Units 11:10 WBC 10.15 (4.8-10.8) K/uL RBC 5.03 (4.2-5.4) M/uL Hgb 14.1 (12.0-16.0) g/dL Hct 41.8 (37-47) % MCV 83.1 (80-100) fL MCH 28.0 (25-34) pg MCHC 33.7 (32-36) g/dL RDW Std Deviation 55.2 H (36.4-46.3) fL RDW Coeff of Elbert 18.8 H (11.5-14.5) % Plt Count 126 L (130-400) K/uL MPV 10.7 H (7.4-10.4) fL Immature Gran % (Auto) 0.3 % Neut % (Auto) 75.2 % Lymph % (Auto) 12.4 % [place] % (Auto) 11.9 % Eos % (Auto) 0.1 % Baso % (Auto) 0.1 % Immature Gran # (Auto) 0.03 H (0.00-0.02) K/uL Neut # (Auto) 7.63 H (1.4-6.5) K/uL Lymph # (Auto) 1.26 (1.2-3.4) K/uL [place] # (Auto) 1.21 H (0.11-0.59) K/uL Eos # (Auto) 0.01 (0-0.5) K/uL Baso # (Auto) 0.01 (0-0.2) K/uL PT (9.0-12.0) Seconds INR (0.9-1.1) APTT (21.0-31.0) Seconds PTT Ratio Sodium (136-145) mmol/L Potassium (3.5-5.1) mmol/L Chloride (98-107) mmol/L Carbon Dioxide (21-32) mmol/L Anion Gap (3-11) BUN (7-18) mg/dl Creatinine (0.6-1.2) mg/dl Est Cr Clr Drug Dosing ml/min Est GFR ( Amer) Est GFR (Non-Af Amer) BUN/Creatinine Ratio (10-20) Glucose (70-99) mg/dl POC Glucose (70-99) POC Lactic Acid Jose (0.90-1.70) mmol/L Calcium (8.5-10.1) mg/dl Magnesium (1.8-2.4) mg/dl Total Bilirubin (0.2-1) mg/dl Direct Bilirubin AST (15-37) U/L ALT (12-78) U/L Alkaline Phosphatase (45-117) U/L Ammonia (11-32) umol/L Total Creatine Kinase (26-192) U/L Troponin I (0-0.045) ng/ml Total Protein (6.4-8.2) gm/dl Albumin (3.4-5.0) gm/dl Globulin (2.5-4.0) gm/dl Albumin/Globulin Ratio (0.9-2) Lipase (73-393) U/L Urine Color Urine Appearance (Clear) Urine pH (4.5-7.5) Ur Specific [place] (1.000-1.030) Urine Protein (Negative) Urine Glucose (UA) (Negative) Urine Ketones (Negative) Urine Blood (Negative) Urine Nitrite (Negative) Urine Bilirubin (Negative) Urine Urobilinogen (Negative) Ur Leukocyte Esterase (Negative) Urine WBC (Auto) (0-5) /hpf Urine RBC (Auto) (0-4) /hpf U Hyaline Cast (Auto) (0-5) /lpf U Epithel Cells (Auto) (0-5) /lpf Urine Bacteria (Auto) (Negative) Nasal Screen MRSA (PCR) (Negative) Urine Opiates Screen (Neg) Ur Methadone, Qual (Neg) Urine Barbiturates (Neg) Ur Phencyclidine (PCP) (Neg) U Amphetamin/Meth Scrn (Neg) MDMA (Ecstasy) Screen (Neg) U Benzodiazepines Scrn (Neg) Ur Cocaine Metabolite (Neg) U Marijuana (THC) Screen (Neg) Ethyl Alcohol mg/dL (0-3) mg/dl Diagnostic Findings CT abd pelvis wo con CLINICAL HISTORY: 63 years-old Female presenting with abdominal pain, distention , poss obstr. TECHNIQUE: Multidetector CT of the abdomen and pelvis was performed without the use of intravenous contrast. IV contrast: None. A dose lowering technique was used consistent with the principles of ALARA (as low as reasonably achievable). COMPARISON: 07/31/2018. CT DOSE (mGy.cm): The estimated cumulative dose is 472.11 mGycm. FINDINGS: Silver Solution Mixer topogram: Cholecystectomy clips. Intramedullary nail fixation of the left femur. Lung bases: No focal infiltrate or nodule at the lung bases. Normal heart size. No pericardial or pleural effusion. Liver: Macronodular morphology suggesting cirrhosis. Normal density. Biliary: Mild biliary ductal prominence likely a reservoir effect in the post cholecystectomy state. Gallbladder surgically absent. Pancreas: Mild parenchymal atrophy. Spleen: Normal noncontrast appearance. Nonenlarged. Adrenal glands: Nonspecific thickening of the adrenal glands. Kidneys and ureters: Nonobstructing lower pole left renal calculi measuring up to 5 mm. Punctate nonobstructing upper pole right renal calculus. Normal noncontrast appearance of the renal parenchyma. Mild right pelvocaliectasis and mild distention of the right ureter. Distal ureters poorly visualized. No left hydronephrosis. Left ureter nondistended. Bladder: Decompressed with a Woodruff catheter. Pelvic organs: Uterus likely surgically absent. Bowel: Mild stool burden throughout normal caliber colon. The appendix is not visualized. No bowel obstruction. Peritoneal cavity: No free fluid or intraperitoneal gas. Lymph nodes: No gross lymphadenopathy allowing for noncontrast technique. Vasculature: Atherosclerosis of the normal caliber abdominal aorta. Varices may be present, not well assessed. Abdominal wall: Body wall edema. Symmetric lower extremity edema. Musculoskeletal: Degenerative changes of the spine. Intramedullary nail fixation of the left femoral neck and proximal metadiaphysis. Posterior matter deformity of the left superior and inferior pubic rami. Acute fractures of the bilateral sacral ala new from prior. Multiple old anterolateral left rib fractures evident. Post procedure changes of kyphoplasty at L2 and L3. Multilevel compression deformities. Mild to moderate compression deformities at L4 and L5 as on prior exam. IMPRESSION: 1. Acute bilateral sacral alar fractures. 2. Possible mild right hydroureteronephrosis, new from prior. No obstructing mass or calculus evident. This may suggest a recently passed calculus. Alternatively, this could represent reactive changes in the setting of upper tract infection. Correlate with urinalysis. 3. Nonobstructing bilateral nephrolithiasis with a greater stone burden on the left. 4. Suspected cirrhosis. 5. No bowel obstruction. _ (1) Acute renal failure Acute renal failure type: unspecified Qualified Code(s): N17.9 - Acute kidney failure, unspecified (2) Liver failure Hepatic coma status: without hepatic coma Liver failure chronicity: acute Qualified Code(s): K72.00 - Acute and subacute hepatic failure without coma (3) Sacral fracture Encounter type: initial encounter Fracture alignment: Fracture healing: Fracture morphology: unspecified fracture morphology Fracture type: closed Zone of sacrum fracture: Qualified Code(s): S32.10XA - Unspecified fracture of sacrum, initial encounter for closed fracture
[2018-11-19] MEDS ORDERED: Nursing to Pharmacy Communication ONE (19:25)
[2018-11-19] MEDS: PANTOprazole 40 MG TAB PO SCH (19:59)
[2018-11-19] MEDS: cloNIDine HCl 0.1 MG TAB PO SCH (20:00)
[2018-11-19] MEDS: RIFAXIMIN 550 MG TABLET PO SCH (20:00)
[2018-11-19] MEDS: INSULIN ASPART 100 UNITS/ML 3 ML PEN SC SCH (23:55)
[2018-11-20] MEDS: LACTULOSE SYRUP 30 GM/45 ML UDP PO SCH ×14 (00:03→13:10)
[2018-11-20] MEDS: INSULIN ASPART 100 UNITS/ML 3 ML PEN SC SCH ×4 (05:44→23:46)
[2018-11-20 06:03] LABS: INR 1.9 (0.9-1.1); Prothrombin Time 18.1 Seconds (9.0-12.0)
[2018-11-20 06:10] LABS: Hematocrit (blood only) 34.6 % (37-47); Hemoglobin 11.1 g/dL (12.0-16.0); Mean Corpuscular Hgb Conc 32.1 g/dL (32-36); Mean Platelet Volume 10.7 fL (7.4-10.4); Platelet Count 70 K/uL (130-400); RDW Coefficient of Variation 19.1 % (11.5-14.5); RDW Standard Deviation 56.7 fL (36.4-46.3); Red Blood Count 4.12 M/uL (4.2-5.4); White Blood Count 4.65 K/uL (4.8-10.8)
[2018-11-20 06:19] LABS: Albumin Globulin Ratio 0.4 (0.9-2); Albumin Level 1.7 gm/dl (3.4-5.0); BUN Creatinine Ratio 44.8 (10-20); Bilirubin,Total 4.2 mg/dl (0.2-1); Calcium 7.1 mg/dl (8.5-10.1); Creatinine Clr Calc Pharmacy 25.7 ml/min; Est GFR (African American) 39.7; Est GFR (Non-African American) 34.2; Globulin 4.8 gm/dl (2.5-4.0); Magnesium 2.7 mg/dl (1.8-2.4); Phosphorus 3.3 mg/dl (2.5-4.9); Total Protein 6.5 gm/dl (6.4-8.2)
[2018-11-20 07:25] LABS: Estimated Average Glucose 134 mg/dl
[2018-11-20] MEDS: SODIUM CHLORIDE 0.9% 1000ML 1,000 ML IV SCH (08:37)
--- NOTE | 2018-11-20 09:24 | Neurology Consultation ---
Date of Consultation November 20, 2018 Assessment & Plan (1) Generalized convulsive epilepsy: As indicated in the history of present illness, there is no available information pertaining to this patient's reported history of seizure disorder. She has never been seen by Dr. Bowles or any other neurologist in [facility] physician group as far as I can gather in both [facility] and [facility]. She did not show up for her appointments in [address] Bowles. It looks like she was actually referred for migraine management at that time. Old records indicated that she had been taking Keppra 1000 mg twice daily, although this medication does not appear on her current medication list or a list that was provided during her assessment in the emergency department this past July. Although this patient was found on the floor at home, after an undetermined length of time, there is no clear indication that she actually had a seizure. She does have a sacral fracture as a complication of her fall. She also had a fall in July while using her walker. I suspect that her falls are related to chronic gait dysfunction related to her history of diabetic peripheral neuropathy and chronic pain. Her hepatic encephalopathy, acute renal failure, and dehydration almost certainly contributed to her recent fall as well. At this point, I would recommend obtaining a CT of the head to exclude subdural hematoma as a consequence of her recent fall as well as potentially exclude other acute pathology. I would also recommend a bedside EEG. I would not start empiric anticonvulsant medication at this time as anticonvulsants would have the potential to worsen her acute encephalopathy and there is no indication that she has been having seizures recently. History of Present Illness Reason for Consultation: History of seizure disorder Requesting Physician: Annika Ambrosio PA-C Attending Physician: Silverio Rzio History of Present Illness The patient is a 63-year old female who was found on the floor at home. She had been lying there for an undetermined length of time. She has a past medical history of poorly controlled diabetes mellitus, diabetic peripheral neuropathy, cirrhosis, chronic hepatitis C infection, anxiety, depression, migraines, skin cancer, chronic pain, and seizure disorder. She is currently admitted with hepatic encephalopathy, acute urinary retention, acute renal failure, and a sacral fracture. The patient continues to exhibit significant alteration in mental status and is unable to provide any details pertaining to her history of present illness or past medical history. The emergency department note indicates that the patient has been hallucinating at home for quite some time. A review of the outpatient records suggest that she was referred to Dr. Bowles, [facility] physician group neurology, in 2015 for further evaluation and management of her migraines. The patient did not show up for any of her appointments and was never seen by Dr. Bowles or any other neurologist in our group. A review of the information forwarded by her primary care physician, Dr. Singh, at that time indicated that the patient was taking Keppra 1000 mg twice daily. No additional information regarding this patient's history of seizure disorder was provided, however. The Keppra did not appear on her current list of outpatient medications and it is apparently unclear if she is still taking this medication. Of note, Keppra did not appear on her home medication list on July 31, 2018 when she presented to the emergency department for further evaluation of a fall that occurred while using her walker. Allergies Allergy/AdvReac Type Severity Reaction Status Date / Time coconut Allergy Unknown ANAPHYLAXIS Verified 11/19/18 11:15 modafinil AdvReac Severe MAKES HYPER Verified 11/19/18 11:15 sulfamethoxazole AdvReac Intermediate PT STATES Verified 11/19/18 11:15 NOT GOOD FOR LIVER zolpidem AdvReac Intermediate LIVER Verified 11/19/18 11:15 PROBLEMS morphine AdvReac Mild hallucinati Verified 11/19/18 11:15 ons Home Medications Home Medications Medication Instructions Recorded Confirmed Type alendronate 70 mg PO WK 07/31/18 11/19/18 History ketoconazole 1 applic TOPICAL WK 07/31/18 11/19/18 History loperamide 2 mg PO 5XD 07/31/18 11/19/18 History spironolactone 1 tab PO DAILY 07/31/18 11/19/18 History cholestyramine-aspartame 1 packet PO DAILY 11/19/18 11/19/18 History [Prevalite] clonidine HCl 0.1 mg PO BID 11/19/18 11/19/18 History furosemide 20 mg PO DAILY 11/19/18 11/19/18 History pantoprazole 40 mg PO BID 11/19/18 11/19/18 History rifaximin [Xifaxan] 550 mg PO BID 11/19/18 11/19/18 History tramadol 50 mg PO BID PRN 11/19/18 11/19/18 History venlafaxine 150 mg PO BID 11/19/18 11/19/18 History Patient History Medical History Tobacco use Skin cancer of face Cirrhosis, nonalcoholic Chronic hepatitis C Transaminitis Acute renal failure (Acute) Acute urinary retention (Acute) Liver failure (Acute) Sacral fracture (Acute) Migraine (Acute) Generalized-onset seizures (Resolved 01/23/13) Hepatic encephalopathy (Acute 01/23/13) Osteoporosis (Chronic Unknown) Generalized convulsive epilepsy (Chronic Unknown) Asthma (Chronic) Cataracts, bilateral Diabetes mellitus with hyperglycemia (Resolved) Atrial fibrillation with rapid ventricular response Family History Other No significant family history Social History Current Living Situation: Alone Current Living Situation Comment: home health nurse visits Other Information That Helps Us Care for You: No Feels Safe at Home: Yes Smoking Status: Unknown if ever smoked Beliefs That Will Affect Care: None Preferred Language: Italian Communication Ability: confused New Client Banking Services Clerk Required: No Review of Systems A review of systems cannot be obtained as patient exhibits a significant alteration in her mental status. Physical Exam 2 Vital Signs (Past 24 Hours): Last Vital Signs Temp 36.5 C 11/20/18 07:59 Pulse 90 11/20/18 07:59 Resp 18 11/20/18 07:59 BP 128/72 11/20/18 07:59 Pulse Ox 94 11/20/18 07:59 Physical Exam: The patient is a thin, chronically ill-appearing elderly female who looks older than her stated age. She is lethargic to obtunded and is unable to answer questions or cooperate reliably with the examination. She was oriented to "hospital." Attention and concentration impaired. Patient provides very limited speech output. Speech did not sound grossly dysarthric. She was unable to cooperate reliably for assessment of naming and repetition. Knowledge of basic vocabulary seem to be intact, however. Fund of knowledge cannot really be assessed. Visual marie and visual acuity could not be reliably assessed. Pupils equal round reactive to light. Eye movements intact with casual observation. Again patient patient would not really cooperate for full assessment of ocular motility. There was some nonspecific nystagmus as well as poor visual fixation observed with casual observation. Corneal reflex is intact. There was no gross facial droop or asymmetry. Hearing grossly intact. Tongue and palate midline. Patient would not cooperate for assessment of shoulder shrug strength. Sensory examination cannot be reliably assessed. Deep tendon reflexes intact and symmetrical although diminished at the Achilles tendons bilaterally. Plantar responses withdrawal bilaterally. Patient would not cooperate for testing of dysdiadochokinesia or dysmetria. Patient would not cooperate for direct ophthalmoscopic examination. Carotid pulses normal bilaterally, no bruits to auscultation. Gait and station cannot be tested. Muscle strength could not be reliably tested. The patient does not appear to have a gross hemiparesis, paraparesis, or monoparesis. Muscle tone diffusely normal although patient grimaced in pain with attempts at passive movement of the lower limbs. There was no spasticity. No atrophy. No abnormal movements of his tremors, myoclonus, or asterixis observed at this time. Results & Data Laboratory Results Ammonia level was 57 yesterday. BUN 70. Creatinine 1.57. Sodium 153. Glucose 168. WBC 4.65. Platelets 70. Diagnostic Findings A CT of the head completed during her last presentation in the emergency department in July was unremarkable. No evidence of hemorrhage or acute or chronic infarct at that time. No hydrocephalus observed. No significant parenchymal abnormality observed. An electrocardiogram completed yesterday revealed a normal sinus rhythm, 78 bpm.
[2018-11-20] MEDS: cloNIDine HCl 0.1 MG TAB PO SCH ×3 (10:13→22:17)
[2018-11-20] MEDS: PANTOprazole 40 MG TAB PO SCH ×3 (10:13→22:17)
[2018-11-20] MEDS: VENLAFAXINE HCL XR 150 MG CAPXR PO SCH (10:13)
[2018-11-20] MEDS: SPIRONOLACTONE 25 MG TAB PO SCH (10:13)
[2018-11-20] MEDS: CHOLESTYRAMINE LIGHT 4 GM PKT PO SCH (10:14)
[2018-11-20] MEDS: RIFAXIMIN 550 MG TABLET PO SCH ×3 (10:14→22:17)
--- NOTE | 2018-11-20 11:41 | CT Scan Report ---
CT head/brain wo con CT DOSE: 921.40 mGy.cm HISTORY: Trauma encephalopathy, fall TECHNIQUE: Multiaxial CT images of the head were performed without the use of intravenous contrast. A dose lowering technique was utilized adhering to the principles of ALARA. Comparison: 07/31/2018 Findings: The paranasal sinuses and mastoid air cells are clear. The calvarium and skull base are int act. The ventricles and sulci are within normal limits. There is no mass, hematoma, midline shift, or acute infarct. Mild age-related atrophy and chronic small vessel change. Impression: No acute intracranial abnormality. The above report was generated using voice recognition software. It may contain grammatical, syntax or spelling errors. Electronically signed by: Elliot Crawford M.D. 11/20/2018 11:40 AM
--- NOTE | 2018-11-20 13:32 | Hospitalist Progress Note ---
Date of Service November 20, 2018 Assessment & Plan (1) Hepatic encephalopathy: Patient in PCU. With hepatic encephaloathy. Ammonia is at 57. No need to serially follow ammonia level. Will monitor clincal response to lactulose. Patient has had 2 large BMs. Will hold lactulose today, will restart tomorrow. -Continue the patient on Xifaxan 550 mg bid -Consider GI consult: for now will hold off consult. (2) Liver failure: as noted above. (3) Cirrhosis, nonalcoholic: as noted above, and below. (4) Chronic hepatitis C: -Follows with [facility] hepatology as an outpatient, had been on Lasix , Aldactone, lactulose and Xifaxan, however did not see lactulose as an outpatient medication -We will need to obtain medicine list from family and confirm her meds. Caregiver, did not have list of meds with her at the time. Will try to obtain in AM. - s/p Josiah tx in 2014 (5) Transaminitis: -Follow morning labs both INR and LFTs. LFTs are gradually improving on 11/20 -Consider consult GI for further recs (6) Acute urinary retention: -Patient found to have 1 L out of urine upon admission into the ER -Appears to be hematuria, started on ceftriaxone, will continue for now -CT shows that patient may have recently passed a stone, with large stone burden on the left side. There is also mild hydroureteronephrosis. -UA appears infected, -Cultures are pensing. (7) Acute renal failure: -Creatinine equals 3.0, baseline runs around 0.78 Creat. 1.57 on 11/20 will continue IVF. (8) Sacral fracture: -CT imaging reviewed, discussed with the ER and there is apparently no surgical fixation required with this type of fracture -Consult orthopedics for further recs, weightbearing status, etc Appreciate input and recommendation. -Patient will need pain management prior to discharge, avoid narcotics at this time due to hepatic encephalopathy. -PT/OT (9) Migraine: -Patient has severe migraine issues, has followed with Dr. Bowles in the outpatient setting -Chronic pain of face from skin cancer adds to migraine issues -Will hold current outpatient medication of tramadol due to hepatic encephalopathy as above, has used oxycodone in the past, however not on this now. 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 - Iss with accuchecks achs - Confirm outpt med list (12) Osteoporosis: (13) Skin cancer of face: - Status unknown, pt uses tramadol per outpt notes for pain relief and this also adds to migraines. (14) Tobacco use: - Obtain socail hx when mentating, no nicotine patch at this time. (15) DVT prophylaxis: - teds, scds, no chemical due to hematuria Spent 35 minutes in management of patient. Subjective Patient seen and examined. Patient is more awake now. Patient is not oriented to place or time. Patient denies any pain or discomfort. Logistics Lead is at bedside. She states she is the only family the patient has. Physical Exam 2 Vital Signs (Past 24 Hours): Last Vital Signs Temp 36.5 C 11/20/18 11:00 Pulse 84 11/20/18 11:00 Resp 20 11/20/18 11:00 BP 133/71 11/20/18 11:00 Pulse Ox 92 11/20/18 11:00 Physical Exam: General: awake, altert, answers questions occasionally with one word answers, NAD, Head: Normocephalic, atraumatic ENT: PERRL, + left eye turned inward Chest: Clear to auscultation, diminished breath sounds at bases, on room air, no adventitious breath sounds Cardiac: Regular rate and rhythm, no murmur, no JVD, normal peripheral pulses, good capillary refill Abdominal: NABS x 4 quadrants, soft, nontender to palpation, no rebound, guarding or tenderness Extremities: no peripheral edema or erythema, calfs nontender to palpation Neuro: alert, awake, not oriented to place or time, able to speak with 2-3 words. More intelligible than before. _ (1) Acute renal failure Acute renal failure type: unspecified Qualified Code(s): N17.9 - Acute kidney failure, unspecified (2) Liver failure Hepatic coma status: without hepatic coma Liver failure chronicity: acute Qualified Code(s): K72.00 - Acute and subacute hepatic failure without coma (3) Sacral fracture Encounter type: initial encounter Fracture alignment: Fracture healing: Fracture morphology: unspecified fracture morphology Fracture type: closed Zone of sacrum fracture: Qualified Code(s): S32.10XA - Unspecified fracture of sacrum, initial encounter for closed fracture
[2018-11-20] MEDS: cefTRIAXone SODIUM 2,000 MG in DEXTROSE 5% 50 ML IV SCH (14:37)
[2018-11-20] MEDS: LIDOCAINE 5% 1 PATCH TD SCH (15:58)
[2018-11-20] MEDS: BACITRACIN OINT 15 GM TUBE EXT SCH (15:59)
[2018-11-21] MEDS ORDERED: SODIUM CHLORIDE 0.9% 1000ML 1,000 ML IV SCH (04:00)
[2018-11-21] MEDS: INSULIN ASPART 100 UNITS/ML 3 ML PEN SC SCH ×4 (05:57→21:50)
[2018-11-21 06:56] LABS: Hematocrit (blood only) 33.9 % (37-47); Hemoglobin 10.6 g/dL (12.0-16.0); Mean Corpuscular Hgb Conc 31.3 g/dL (32-36); Mean Corpuscular Volume 87.1 fL (80-100); RDW Coefficient of Variation 19.7 % (11.5-14.5); RDW Standard Deviation 60.1 fL (36.4-46.3); Red Blood Count 3.89 M/uL (4.2-5.4); White Blood Count 3.07 K/uL (4.8-10.8)
[2018-11-21 07:10] LABS: Prothrombin Time 19.5 Seconds (9.0-12.0)
[2018-11-21 07:20] LABS: Mean Platelet Volume 10.6 fL (7.4-10.4); Platelet Count 66 K/uL (130-400)
[2018-11-21 07:27] LABS: Albumin Globulin Ratio 0.3 (0.9-2); Albumin Level 1.5 gm/dl (3.4-5.0); BUN Creatinine Ratio 37.6 (10-20); Bilirubin,Total 2.8 mg/dl (0.2-1); Calcium 7.5 mg/dl (8.5-10.1); Est GFR (African American) 63.8; Est GFR (Non-African American) 55.1; Globulin 4.9 gm/dl (2.5-4.0); Magnesium 2.3 mg/dl (1.8-2.4); Potassium 3.5 mmol/L (3.5-5.1); Total Protein 6.4 gm/dl (6.4-8.2)
[2018-11-21] MEDS: VENLAFAXINE HCL XR 150 MG CAPXR PO SCH (09:07)
[2018-11-21] MEDS: PANTOprazole 40 MG TAB PO SCH ×2 (09:08→21:45)
[2018-11-21] MEDS: LIDOCAINE 5% 1 PATCH TD SCH (09:08)
[2018-11-21] MEDS: RIFAXIMIN 550 MG TABLET PO SCH ×2 (09:08→21:46)
[2018-11-21] MEDS: SPIRONOLACTONE 25 MG TAB PO SCH (09:08)
[2018-11-21] MEDS: CHOLESTYRAMINE LIGHT 4 GM PKT PO SCH (09:08)
[2018-11-21] MEDS: cloNIDine HCl 0.1 MG TAB PO SCH ×2 (09:16→21:52)
--- NOTE | 2018-11-21 11:17 | Neurology Progress Note ---
Date of Service November 21, 2018 Assessment & Plan (1) Seizure disorder: As described in the history of present illness, although there is mention of a history of seizure disorder in this patient's medical record, I cannot find any information pertaining to previous clinical assessments or any specific testing such as EEG or neuro imaging. She had apparently been taking Keppra 1000 mg twice daily a few years ago but it looks like she has not been on this medication for quite some time. At this point, I would not recommend restarting an anticonvulsant in light of her persistent multifactorial encephalopathy related to chronic liver disease, acute renal failure, and severe dehydration. These issues appear to be improving, however. Follow-up with results of EEG when completed. If the EEG reveals changes suggestive of an underlying seizure disorder would consider restarting Keppra or an alternative anticonvulsant. Continue medical care for management of patient's persistent, improving encephalopathy. Subjective Follow-up for recent fall, possible seizure disorder The patient is a bit less confused this morning as she was compared with yesterday. However, she remains lethargic and significantly confused and is an unreliable historian. No seizure activity has been observed. The patient denies headache, vision change, or pain at this time. She completed the requested CT of the head yesterday. No evidence of hemorrhage or acute process. No hydrocephalus or significant parenchymal abnormalities. I reviewed the images as well as the radiologist interpretation of this test. Constitutional: no fever Eyes: no blind spots and no diplopia Neurologic: + generalized weakness; no tremor(s) and no headache(s) Physical Exam 2 Vital Signs (Past 24 Hours): Last Vital Signs Temp 36.3 C L 11/21/18 07:00 Pulse 91 H 11/21/18 07:00 Resp 20 11/21/18 07:00 BP 144/77 H 11/21/18 07:00 Pulse Ox 93 11/21/18 07:00 Physical Exam: The patient was lethargic. She is oriented to person and hospital only. Attention and concentration are impaired. Patient provides minimal spontaneous speech output although she is able to name objects. She is able to follow simple commands and seems to have an adequate knowledge of vocabulary. Visual marie are grossly full to confrontation. Visual acuity normal. Pupils equal round react to light and accommodation. Eye movements normal. Facial sensation and expression are intact. Hearing intact. Tongue and palate are midline. Deep tendon reflexes are intact and symmetrical for the arms and legs. The patient does not cooperate adequately for assessment of motor function, however. She is able to briefly lift her upper limbs out of the bed against gravity. She withdraws the lower limbs to noxious stimulation. Results & Data Laboratory Results Laboratory Tests 11/21/18 11/21/18 06:30 06:30 WBC 3.07 L Hgb 10.6 L Plt Count 66 L Sodium 158 H* BUN 40 H Creatinine 1.06 Glucose 189 H Albumin 1.5 L
[2018-11-21] MEDS: cefTRIAXone SODIUM 2,000 MG in DEXTROSE 5% 50 ML IV SCH (12:42)
[2018-11-21] MEDS ORDERED: POTASSIUM PHOS 3 MMOL/1 ML INFUSION IV STA (13:15)
--- NOTE | 2018-11-21 13:37 | Hospitalist Progress Note ---
Date of Service November 21, 2018 Assessment & Plan (1) Hepatic encephalopathy: Patient in PCU. With hepatic encephaloathy. Ammonia is at 57. No need to serially follow ammonia level. Will monitor clincal response to lactulose. Patient ended up with 3 BMs yesterday Restarted lactulose today. -Continue the patient on Xifaxan 550 mg bid -Consider GI consult: for now will hold off consult. Patient is more awake today. She is not at her baseline however. Patient will be restarted on a diet. (2) Liver failure: as noted above. (3) Cirrhosis, nonalcoholic: as noted above, and below. Will consult Palliative care to discuss goals of care. (4) Chronic hepatitis C: -Follows with [facility] hepatology as an outpatient, had been on Lasix , Aldactone, lactulose and Xifaxan, however did not see lactulose as an outpatient medication. D/W healthcare receptionist, she is not taking lacutlose as she was having diarrhea at home. She stopped having diarrhea one week prior to admission. Caregiver will bring list on Thursday to confirm her meds. - s/p Josiah tx in 2014 (5) Transaminitis: -Follow morning labs both INR and LFTs. LFTs are gradually improving on 11/21 AST/ALT and bilirrubin have been decreasing. -Consider consult GI for further recs (6) Acute urinary retention: -Patient found to have 1 L out of urine upon admission into the ER -Appears to be hematuria, started on ceftriaxone, will continue for now. Patient continues to have hematuria. -CT shows that patient may have recently passed a stone, with large stone burden on the left side. There is also mild hydroureteronephrosis. -UA appears infected, -Cultures are pending. (7) Acute renal failure: -Creatinine equals 3.0, baseline runs around 0.78 Creat. 1.06 on 11/21 will continue IVF. (8) Sacral fracture: -CT imaging reviewed, discussed with the ER and there is apparently no surgical fixation required with this type of fracture -Consult orthopedics for further recs, weightbearing status, etc Appreciate input and recommendation. -Patient will need pain management prior to discharge, avoid narcotics at this time due to hepatic encephalopathy. -PT/OT (9) Migraine: -Patient has severe migraine issues, has followed with Dr. Bowles in the outpatient setting -Chronic pain of face from skin cancer adds to migraine issues -Will hold current outpatient medication of tramadol due to hepatic encephalopathy as above, has used oxycodone in the past, however not on this now. (10) Generalized convulsive epilepsy: -Unknown if the patient is on keppra at this time, will check a level to determine -Possible seizure activity so will consult neurology -Continue on Effexor and alprazolam Appreciate input from Neurology: Looks like she has not been on keppra for some time. would not recommend restarting an anticonvulsant in light of her persistent multifactorial encephalopathy related to chronic liver disease, acute renal failure, and severe dehydration. Follow-up with results of EEG when completed. Continue medical care for management of patient's persistent, improving encephalopathy. (11) Diabetes mellitus with hyperglycemia: - Check A1C with am labs, on outpatient review in 2017 it was around 13. A1C is currently 6.3 - Iss with accuchecks achs - Confirm outpt med list (12) Osteoporosis: (13) Skin cancer of face: - Status unknown, pt uses tramadol per outpt notes for pain relief and this also adds to migraines. (14) Tobacco use: - Obtain social hx when mentating, no nicotine patch at this time. (15) Hypernatremia: May be iatrogenic. Will place patient on LR. If Sodium does not decrease by tomorrow, may consider switching to 1/2 NSS. (16) Hypocalcemia: ordered 1 gram of calcium. will recheck in AM. (17) Hypophosphatemia: replaced phos. will recheck in AM. (18) DVT prophylaxis: - teds, scds, no chemical due to hematuria Spent 35 minutes in management of patient. Subjective Patient seen and examined. Patient is more awake now. Patient is not oriented to place or time. Patient denies any pain or discomfort. Improvement Lead is at bedside. She states she is the only family the patient has. Physical Exam 2 Vital Signs (Past 24 Hours): Last Vital Signs Temp 37.1 C 11/21/18 10:59 Pulse 87 11/21/18 10:59 Resp 17 11/21/18 10:59 BP 124/69 11/21/18 10:59 Pulse Ox 93 11/21/18 10:59 Physical Exam: General: awake, alert, answers questions occasionally with one word answers, NAD, Head: Normocephalic, atraumatic ENT: PERRL, + left eye turned inward Chest: Clear to auscultation, diminished breath sounds at bases, on room air, no adventitious breath sounds Cardiac: Regular rate and rhythm, no murmur, no JVD, normal peripheral pulses, good capillary refill Abdominal: NABS x 4 quadrants, soft, nontender to palpation, no rebound, guarding or tenderness Extremities: no peripheral edema or erythema, calfs nontender to palpation Neuro: alert, awake, not oriented to place or time, mainly speaks in one worded answers. She does intermitently speak in complete sentences. _ (1) Liver failure Hepatic coma status: without hepatic coma Liver failure chronicity: acute Qualified Code(s): K72.00 - Acute and subacute hepatic failure without coma (2) Acute renal failure Acute renal failure type: unspecified Qualified Code(s): N17.9 - Acute kidney failure, unspecified (3) Sacral fracture Encounter type: initial encounter Fracture alignment: Fracture healing: Fracture morphology: unspecified fracture morphology Fracture type: closed Zone of sacrum fracture: Qualified Code(s): S32.10XA - Unspecified fracture of sacrum, initial encounter for closed fracture
[2018-11-21] MEDS ORDERED: CALCIUM GLUCONATE 10% 1,000 MG in SODIUM CHLORIDE 0.9% 50 ML IV ONE (14:00)
[2018-11-21] MEDS: LACTATED RINGER'S 1,000 ML IV SCH ×2 (14:55→21:48)
[2018-11-21] MEDS: LACTULOSE SYRUP 30 GM/45 ML UDP PO SCH ×2 (14:56→21:47)
[2018-11-21] MEDS ORDERED: POTASSIUM PHOSPHATE 24 MMOL in SODIUM CHLORIDE 0.9% 500 ML IV ONE (15:00)
[2018-11-21] MEDS: BACITRACIN OINT 15 GM TUBE EXT SCH (15:20)
[2018-11-21] MEDS: TRAMADOL HCL 50 MG TABLET PO PRN (21:52)
[2018-11-22] MEDS: LACTATED RINGER'S 1,000 ML IV SCH (04:16)
[2018-11-22] MEDS: LACTULOSE SYRUP 30 GM/45 ML UDP PO SCH ×3 (06:02→20:50)
[2018-11-22 07:23] LABS: Hematocrit (blood only) 33.7 % (37-47); Hemoglobin 10.3 g/dL (12.0-16.0); Mean Corpuscular Hgb Conc 30.6 g/dL (32-36); Mean Corpuscular Volume 88.9 fL (80-100); RDW Coefficient of Variation 19.9 % (11.5-14.5); RDW Standard Deviation 63.3 fL (36.4-46.3); Red Blood Count 3.79 M/uL (4.2-5.4); White Blood Count 2.16 K/uL (4.8-10.8)
[2018-11-22 07:24] LABS: Mean Platelet Volume 9.4 fL (7.4-10.4); Platelet Count 51 K/uL (130-400)
[2018-11-22 07:45] LABS: INR 2.2 (0.9-1.1); Prothrombin Time 21.6 Seconds (9.0-12.0)
[2018-11-22 07:57] LABS: Albumin Globulin Ratio 0.3 (0.9-2); Albumin Level 1.5 gm/dl (3.4-5.0); BUN Creatinine Ratio 25.6 (10-20); Bilirubin,Total 2.3 mg/dl (0.2-1); Calcium 7.5 mg/dl (8.5-10.1); Creatinine Clr Calc Pharmacy 41.5 ml/min; Est GFR (African American) 63.1; Est GFR (Non-African American) 54.4; Globulin 4.6 gm/dl (2.5-4.0); Magnesium 1.8 mg/dl (1.8-2.4); Phosphorus 2.3 mg/dl (2.5-4.9); Potassium 3.8 mmol/L (3.5-5.1); Total Protein 6.1 gm/dl (6.4-8.2)
--- NOTE | 2018-11-22 08:44 | Orthopedic Progress Note ---
Date of Service November 22, 2018 Assessment & Plan (1) Tobacco use: (2) Skin cancer of face: (3) Chronic hepatitis C: (4) Transaminitis: (5) Acute renal failure: (6) Acute urinary retention: (7) Liver failure: (8) Dehydration: (9) Sacral fracture: From orthopedic standpoint, this is non-surgical. Continue NWBing B LE other than for transfers from bed to chair. Tramadol prn pain per medicine orders. Positioning in bed to prevent bed sores. Continue to follow. (10) DVT prophylaxis: (11) Cirrhosis, nonalcoholic: Subjective Patient having EEG performed at bedside. Per nursing patient being seen by PT/ OT. Hasnt been out of bed due to pain. Pain with positioning in bed as well. Only comfortable position is laying supine. Patient able to answer a few questions and commands today. When asked whats painful patient points to her low back/pelvis. Physical Exam 2 Vital Signs (Past 24 Hours): Last Vital Signs Temp 38.2 C H 11/22/18 07:30 Pulse 95 H 11/22/18 07:30 Resp 18 11/22/18 07:30 BP 122/71 11/22/18 07:30 Pulse Ox 94 11/22/18 07:30 Physical Exam: Patient laying supine in bed. B foot pumps on. More alert today compared to thursday but still somewhat incoherent. Pain with log rolling to pelvis bilaterally. When asked if patient can wiggle toes and move feet, she was only able to wiggle her right foot. She was not able to answer my questions regarding light/deep touch sensation. However did respond to pain stimuli to B LEs. Calves soft. Neg homans. No pitting edema. Brisk capillary refill. Palpable DP and PT pulses. Results & Data Laboratory Results 11/22/18 11/22/18 11/22/18 Range/Units 08:57 07:58 07:02 WBC (4.8-10.8) K/uL RBC (4.2-5.4) M/uL Hgb (12.0-16.0) g/dL Hct (37-47) % MCV (80-100) fL MCH (25-34) pg MCHC (32-36) g/dL RDW Std Deviation (36.4-46.3) fL RDW Coeff of Elbert (11.5-14.5) % Plt Count (130-400) K/uL MPV (7.4-10.4) fL PT (9.0-12.0) Seconds INR (0.9-1.1) Sodium Pending 162 H* (136-145) mmol/L Potassium Pending 3.8 (3.5-5.1) mmol/L Chloride Pending 132 H (98-107) mmol/L Carbon Dioxide Pending 23 (21-32) mmol/L Anion Gap Pending 6.0 (3-11) BUN Pending 27 H (7-18) mg/dl Creatinine Pending 1.07 (0.6-1.2) mg/dl Est Cr Clr Drug Dosing Pending 41.5 ml/min Est GFR ( Amer) Pending 63.1 Est GFR (Non-Af Amer) Pending 54.4 BUN/Creatinine Ratio Pending 25.6 H (10-20) Glucose Pending 188 H (70-99) mg/dl POC Glucose 176 H (70-99) Calcium Pending 7.5 L (8.5-10.1) mg/dl Phosphorus 2.3 L (2.5-4.9) mg/dl Magnesium 1.8 (1.8-2.4) mg/dl Total Bilirubin 2.3 H (0.2-1) mg/dl AST 36 (15-37) U/L ALT 23 (12-78) U/L Alkaline Phosphatase 127 H (45-117) U/L Total Protein 6.1 L (6.4-8.2) gm/dl Albumin 1.5 L (3.4-5.0) gm/dl Globulin 4.6 H (2.5-4.0) gm/dl Albumin/Globulin Ratio 0.3 L (0.9-2) 11/22/18 11/22/18 11/21/18 Range/Units 07:02 07:02 20:49 WBC 2.16 L (4.8-10.8) K/uL RBC 3.79 L (4.2-5.4) M/uL Hgb 10.3 L (12.0-16.0) g/dL Hct 33.7 L (37-47) % MCV 88.9 (80-100) fL MCH 27.2 (25-34) pg MCHC 30.6 L (32-36) g/dL RDW Std Deviation 63.3 H (36.4-46.3) fL RDW Coeff of Elbert 19.9 H (11.5-14.5) % Plt Count 51 L (130-400) K/uL MPV 9.4 (7.4-10.4) fL PT 21.6 H (9.0-12.0) Seconds INR 2.2 H (0.9-1.1) Sodium (136-145) mmol/L Potassium (3.5-5.1) mmol/L Chloride (98-107) mmol/L Carbon Dioxide (21-32) mmol/L Anion Gap (3-11) BUN (7-18) mg/dl Creatinine (0.6-1.2) mg/dl Est Cr Clr Drug Dosing ml/min Est GFR ( Amer) Est GFR (Non-Af Amer) BUN/Creatinine Ratio (10-20) Glucose (70-99) mg/dl POC Glucose 139 H (70-99) Calcium (8.5-10.1) mg/dl Phosphorus (2.5-4.9) mg/dl Magnesium (1.8-2.4) mg/dl Total Bilirubin (0.2-1) mg/dl AST (15-37) U/L ALT (12-78) U/L Alkaline Phosphatase (45-117) U/L Total Protein (6.4-8.2) gm/dl Albumin (3.4-5.0) gm/dl Globulin (2.5-4.0) gm/dl Albumin/Globulin Ratio (0.9-2) 11/21/18 11/21/18 Range/Units 16:44 11:25 WBC (4.8-10.8) K/uL RBC (4.2-5.4) M/uL Hgb (12.0-16.0) g/dL Hct (37-47) % MCV (80-100) fL MCH (25-34) pg MCHC (32-36) g/dL RDW Std Deviation (36.4-46.3) fL RDW Coeff of Elbert (11.5-14.5) % Plt Count (130-400) K/uL MPV (7.4-10.4) fL PT (9.0-12.0) Seconds INR (0.9-1.1) Sodium (136-145) mmol/L Potassium (3.5-5.1) mmol/L Chloride (98-107) mmol/L Carbon Dioxide (21-32) mmol/L Anion Gap (3-11) BUN (7-18) mg/dl Creatinine (0.6-1.2) mg/dl Est Cr Clr Drug Dosing ml/min Est GFR ( Amer) Est GFR (Non-Af Amer) BUN/Creatinine Ratio (10-20) Glucose (70-99) mg/dl POC Glucose 204 H 233 H (70-99) Calcium (8.5-10.1) mg/dl Phosphorus (2.5-4.9) mg/dl Magnesium (1.8-2.4) mg/dl Total Bilirubin (0.2-1) mg/dl AST (15-37) U/L ALT (12-78) U/L Alkaline Phosphatase (45-117) U/L Total Protein (6.4-8.2) gm/dl Albumin (3.4-5.0) gm/dl Globulin (2.5-4.0) gm/dl Albumin/Globulin Ratio (0.9-2) _ (1) Acute renal failure Acute renal failure type: unspecified Qualified Code(s): N17.9 - Acute kidney failure, unspecified (2) Liver failure Hepatic coma status: without hepatic coma Liver failure chronicity: acute Qualified Code(s): K72.00 - Acute and subacute hepatic failure without coma (3) Sacral fracture Encounter type: initial encounter Fracture alignment: Fracture healing: Fracture morphology: unspecified fracture morphology Fracture type: closed Zone of sacrum fracture: Qualified Code(s): S32.10XA - Unspecified fracture of sacrum, initial encounter for closed fracture
[2018-11-22] MEDS: DEXTROSE 5% 1,000 ML IV SCH ×2 (08:52→22:24)
[2018-11-22] MEDS: INSULIN ASPART 100 UNITS/ML 3 ML PEN SC SCH ×4 (08:57→20:53)
[2018-11-22] MEDS: PANTOprazole 40 MG TAB PO SCH ×2 (08:58→20:50)
[2018-11-22] MEDS: SPIRONOLACTONE 25 MG TAB PO SCH (08:58)
[2018-11-22] MEDS: VENLAFAXINE HCL XR 150 MG CAPXR PO SCH (08:58)
[2018-11-22] MEDS: RIFAXIMIN 550 MG TABLET PO SCH ×2 (08:58→20:51)
[2018-11-22] MEDS: LIDOCAINE 5% 1 PATCH TD SCH (09:00)
[2018-11-22] MEDS: ACETAMINOPHEN 325 MG TAB PO PRN ×2 (09:09→18:30)
[2018-11-22] MEDS ORDERED: VANCOMYCIN CONSULT ACTIVE PRN (09:09)
--- NOTE | 2018-11-22 09:37 | Neurology Progress Note ---
Date of Service November 22, 2018 Assessment & Plan (1) Seizure disorder: Patient has been on Keppra for presumed seizure disorder. She has had no clinical seizure activity. She is confused and quite encephalopathic since admission. On examination she has an encephalopathy , which certainly could be consistent with hepatic encephalopathy. She has no asterixis. The patient has cirrhosis and liver failure. She has chronic hepatitis-C. She has a history of migraine headaches but no headache currently. Recommendations: 1. EEG is pending. 2. There is no indication for continuing levetiracetam or initiating new anticonvulsants, at this time. Keep off levetiracetam. This could be adding to encephalopathy in an elderly woman anyway. 3. Physical, Occupational, and speech therapy. 4. I have no further neurologic recommendations to make specifically at this time. Overall, I spent a total of 35 minutes with this case including records review, evaluation the patient at bedside, and discussion of the case with clinical staff, and Lashonda Duff regarding differential diagnosis and treatment options. Subjective Patient has no complaints of pain. She is awake but very confused. Nursing reports no seizure activity. EEG is pending from this morning. A preliminary report suggest that it was unremarkable. CBC shows anemia as before. Glucose is elevated. Alkaline phosphatase is elevated. Physical Exam 2 Vital Signs (Past 24 Hours): Last Vital Signs Temp 38.2 C H 11/22/18 07:30 Pulse 95 H 11/22/18 07:30 Resp 18 11/22/18 07:30 BP 122/71 11/22/18 07:30 Pulse Ox 94 11/22/18 07:30 Physical Exam: She is sleepy but easily arousable with voice. She makes eye contact and will smile. She is cooperative to a degree but gets confused easily. She can follow 1 step commands when it involved her face or arms. She is not following commands in reference to her legs. Extraocular eye muscles are intact without nystagmus. There is no facial droop and tongue is midline. There is no obvious aphasia or dysarthria otherwise. The patient can move her arms but has little spontaneous movement of her legs. There is withdrawal of her legs with the pain right greater than left side. She has discomfort with passive movement of the legs.
[2018-11-22 09:43] LABS: BUN Creatinine Ratio 24.3 (10-20); Calcium 7.7 mg/dl (8.5-10.1); Creatinine Clr Calc Pharmacy 38.6 ml/min; Est GFR (African American) 57.8; Est GFR (Non-African American) 49.9
[2018-11-22] MEDS: cloNIDine HCl 0.1 MG TAB PO SCH ×2 (10:00→20:50)
[2018-11-22] MEDS: CHOLESTYRAMINE LIGHT 4 GM PKT PO SCH (10:00)
--- NOTE | 2018-11-22 10:11 | Pharmacy Report ---
Pharmacy Abx Initial Consult - Date of Service November 22, 2018 - Pharmacy Dosing Scope Date of Consult: 11/22/18 Consultation requested by: ALEENA [facility] is consulted to initiate vancomycin IV dosing therapy, order appropriate labs and adjust drug dose/frequency. - Subjective The patient is a 63 year old F admitted on 11/19/18 14:05. - Objective Height: 5 ft Weight: 57.1 kg Vital Signs (Past 12hrs): Vital Signs Temp Pulse Resp BP BP Pulse Ox 11/22/18 07:30 38.2 C H 95 H 18 122/71 94 11/22/18 04:00 37.2 C 91 H 20 144/76 H 91 11/21/18 22:49 37.1 C 76 22 125/72 92 Lab Results (24hrs): Laboratory Tests (24 Hours) 11/22/18 11/22/18 11/22/18 08:57 07:02 07:02 WBC 2.16 L Creatinine 1.15 1.07 Est Cr Clr Drug Dosing 38.6 41.5 Micro Results: 11/22/18 09:22 Blood Culture - Pending Blood 11/22/18 08:57 Blood Culture - Pending Blood 11/19/18 11:45 Urine Culture - Final Urine,Straight Cath No growth - less than 1,000 colonies/mL. - Risk Factors for Resistance * Antimicrobial use within the last 90 days (currently on Rocephin) - Assessment & Plan Assessment 63 year old F admitted with hepatic cirrhosis and encephalopathy who has two positive blood cultures with coag negative staph resistant to oxacillin and is now feverish. Empiric vancomycin started. Plan vancomcyin for treatment of positive blood cultures Vancomycin IV * Estimated PK Parameters: Vd 0.6 L/kg, Trey 0.0368 hr-1, t1/2 18.8 hr * Loading dose: 1500 mg (25 mg/kg) * Maintenance dose: 1000 mg IV (17.5 mg/kg) every 24 hours * Goal trough level for positive blood cultures : 15 to 20 mcg/mL * Trough NOT ordered secondary to empiric indication (only 48 hours) Pharmacy will continue to follow and will adjust dose/frequency as necessary. Thank you.
[2018-11-22] MEDS ORDERED: VANCOMYCIN HCL 1,500 MG in SODIUM CHLORIDE 0.9% 500 ML IV ONE (10:15)
[2018-11-22] MEDS: TRAMADOL HCL 50 MG TABLET PO PRN (10:28)
--- NOTE | 2018-11-22 10:30 | Palliative Care Consultation ---
Date of Consultation November 22, 2018 Assessment & Plan (1) Palliative care encounter: -This is a 63 year old female who was transferred to the [facility] via EMS after being found down at home by a caregiver. Patient has a Past Medical History of non-alcoholic liver cirrhosis. chronic hepatitis C, s/p Harvoni tx in 2015, invasive skin cancer, poorly controlled DM2, COPD, hx of tobacco abuse , epilepsy, per caregiver has not experienced a seizure in over 8 years, migraines, osteoporosis, thrombocytopenia, anxiety, and depression. The patient' s LFT's were found to be elevated, she was found to have urinary retention and pelvic fractures which are suspected to be from her fall. -Upon entering the room, the patient was staring at the ceiling, although able to focus on my eyes when I asked. Patient unable to follow simple commands and when I asked if we were in a hospital, at her house, or at a bowling alley - she just kept repeating those three multiple choice options. Unable to rely on the patient for additional validity of Goals of Care. -Per nursing the patient has a caregiver, whom did come to the bedside and I was able to speak with her (Kiah who works with [employer]). -Per Kiah, she has been her sole caregiver for the past 8 years for 16 hours daily most days. -Per Kiah, the patient was adopted as an infant and both of her parents are , with no siblings, spouse, ex-spouse, or children. -Per Kiah, herself and the patient's landlordPeter are her only friends and contact. -She thinks that there is an advanced directive for the patient that was filled out over the past 5 years which she will look for and bring in - She also plans on speaking with the landlord, as she thinks he may have documentation of her wishes as well. -I explained that we would look to seek guidance from [facility] since we do not have a documented legal next of kin, she understands. I did speak with Case Management about reaching out to [facility] [employer]. -Patient will need to remain a FULL CODE as patient is unable to participate in GOALS OF CARE/CODE STATUS discussion. -Upon discharge, patient would require placement as her needs are too great to return home without 24/7 care. -Palliative Performance Scale: 20% -We will continue to follow this patient throughout her hospitalization. (2) Seizure disorder: -Managed by Hospitalists and Neurology -Per caregiver, patient has not had a seizure in over 8 years. -She is on Keppra, but no seizure activity has been noted since admission -Neurology was consulted and an EEG was ordered (3) Cirrhosis, nonalcoholic: -Managed by GI and Hospitalists -GI consulted. Per review, patient has not been to f/u since 2013. -Patient with cirrhosis and completion of Harvoni treatment in 2014. -Recent Ammonia level 39 (4) Acute urinary retention: -Managed by Hospitalists -Patient with urinary retention upon admission. -Joel catheter placed and patient tolerating -Patient being treated for UTI with Ceftriaxone 2G IV daily (5) Sacral fracture: -Managed by Hospitalists and Ortho -Ortho consulted upon admission -Pelvic fracture sustained presumably from fall at home. -Recommendations were conservative measures with NWB B/L LE, not a surgical candidate -Patient was receiving Tramadol for pain - cautionary use d/t hepatic encephalopathy. Encounter type: initial encounter Fracture alignment: Fracture healing: Fracture morphology: unspecified fracture morphology Fracture type: closed Zone of sacrum fracture: Qualified Code(s): S32.10XA - Unspecified fracture of sacrum, initial encounter for closed fracture (6) Dehydration: -Managed by Hospitalists -Currently cautionary rehydration with D5 IV 75 mL/hour. -Patient Na+ level 160's Supervising Physician Co-Signing Physician Notes Chart reviewed, patient examined Patient seen along with DELMI Byrnes PE: No acute distress HEENT: EOMI Respiratory: Unlabored, on O2 CV: Regular rate Extremities: No edema Agree with above note, assessment and plan as per DELMI Byrnes-will continue to follow and assist with medical decision making. History of Present Illness Reason for Consultation: GOALS OF CARE Requesting Physician: Dr. Rizo Attending Physician: Silverio Rizo History of Present Illness This is a 63 year old female who was transferred to the [facility] via EMS after being found down at home by a caregiver. Patient has a Past Medical History of non-alcoholic liver cirrhosis. chronic hepatitis C, s/p Harvoni tx in 2014, invasive skin cancer, poorly controlled DM2, COPD, hx of tobacco abuse, epilepsy, per caregiver has not experienced a seizure in over 8 years, migraines , osteoporosis, thrombocytopenia, anxiety, and depression. The patient's LFT's were found to be elevated, she was found to have urinary retention and pelvic fractures which are suspected to be from her fall. Palliative Care was consulted to discuss GOALS OF CARE. Please see Assessment and Plan for further details. Upon entering the room, the patient was staring at the ceiling, although able to focus on my eyes when I asked. Patient unable to follow simple commands and when I asked if we were in a hospital, at her house, or at a bowling alley - she just kept repeating those three multiple choice options. Unable to rely on the patient for additional validity of Goals of Care. Thank you kindly for involving us with this unfortunate patient. Allergies Allergy/AdvReac Type Severity Reaction Status Date / Time coconut Allergy Unknown ANAPHYLAXIS Verified 11/19/18 11:15 modafinil AdvReac Severe MAKES HYPER Verified 11/19/18 11:15 sulfamethoxazole AdvReac Intermediate PT STATES Verified 11/19/18 11:15 NOT GOOD FOR LIVER zolpidem AdvReac Intermediate LIVER Verified 11/19/18 11:15 PROBLEMS morphine AdvReac Mild hallucinati Verified 11/19/18 11:15 ons Home Medications Home Medications Medication Instructions Recorded Confirmed Type alendronate 70 mg PO WK 07/31/18 11/19/18 History ketoconazole 1 applic TOPICAL WK 07/31/18 11/19/18 History loperamide 2 mg PO 5XD 07/31/18 11/19/18 History spironolactone 1 tab PO DAILY 07/31/18 11/19/18 History cholestyramine-aspartame 1 packet PO DAILY 11/19/18 11/19/18 History [Prevalite] clonidine HCl 0.1 mg PO BID 11/19/18 11/19/18 History furosemide 20 mg PO DAILY 11/19/18 11/19/18 History pantoprazole 40 mg PO BID 11/19/18 11/19/18 History rifaximin [Xifaxan] 550 mg PO BID 11/19/18 11/19/18 History tramadol 50 mg PO BID PRN 11/19/18 11/19/18 History venlafaxine 150 mg PO BID 11/19/18 11/19/18 History Patient History Medical History Tobacco use Skin cancer of face Cirrhosis, nonalcoholic Chronic hepatitis C Transaminitis Acute renal failure (Acute) Acute urinary retention (Acute) Liver failure (Acute) Sacral fracture (Acute) Migraine (Acute) Generalized-onset seizures (Resolved 01/23/13) Hepatic encephalopathy (Acute 01/23/13) Osteoporosis (Chronic Unknown) Generalized convulsive epilepsy (Chronic Unknown) Asthma (Chronic) Cataracts, bilateral Diabetes mellitus with hyperglycemia (Resolved) Atrial fibrillation with rapid ventricular response Family History Other No significant family history Social History Current Living Situation: Alone Current Living Situation Comment: home health nurse visits Other Information That Helps Us Care for You: No Feels Safe at Home: Yes Smoking Status: Unknown if ever smoked Beliefs That Will Affect Care: None Communication Ability: Effective Review of Systems Unable to complete ROS as patient lethargic and not able to follow commands reliably Physical Exam 2 Vital Signs (Past 24 Hours): Last Vital Signs Temp 38.2 C H 11/22/18 07:30 Pulse 95 H 11/22/18 07:30 Resp 18 11/22/18 07:30 BP 122/71 11/22/18 07:30 Pulse Ox 94 11/22/18 07:30 Physical Exam: Pt lying in bed and for most of the exam staring at the ceiling , appears comfortable. Eyes: PERRL, conjunctivae normal, anicteric sclerae ENMT: external ear and nose normal, oropharynx normal Neck: trachea midline, no thyromegaly Respiratory: normal respiratory effort, lungs clear to auscultation Auscultation: + diminished lung sounds Cardiovascular: Rate/Rhythm: regular rhythm Heart Sounds: normal S1 and normal S2 Extremities: no calf tenderness, no pedal edema and no edema Gastrointestinal (Abdomen): normal bowel sounds, soft, nontender, no hepatosplenomegaly Skin: + turgor decreased, + ulcer, + wound (sacral wounds noted by nursing and wound care team) and + dry skin patient with arteial ulcers on top of feet and skin tears on left forearm Psychiatric: Orientation: alert; + not oriented to person, + not oriented to place and + not oriented to time Eye Contact: not poor eye contact Affect : + constricted affect Hallucinations: + visual hallucinations (per animal care giver patient has hallucinations and nursing noted that she looked 'scared' when the patient looked at the nurse like she was seeig something) Judgement : + severely impaired judgement Genitourinary: joel in situ Time Spent Midlevel Total time spent 100 minutes with > 50% of that time reviewing the chart, assessing the patient, and discussing plan of care with caregiver at the bedside.
--- NOTE | 2018-11-22 10:37 | Procedure Note ---
EEG Procedure Note Date of Service November 22, 2018 Start / End Times Start Time: 8:26 AM End Time: 8:46 AM Referring Physician Deandre Mari History This is a 63-year-old female with acute encephalopathy and delirium. EEG for further evaluation of possible seizure etiology. Home Medication List Home Medications Medication Instructions Recorded Confirmed Type alendronate 70 mg PO WK 07/31/18 11/19/18 History ketoconazole 1 applic TOPICAL WK 07/31/18 11/19/18 History loperamide 2 mg PO 5XD 07/31/18 11/19/18 History spironolactone 1 tab PO DAILY 07/31/18 11/19/18 History cholestyramine-aspartame 1 packet PO DAILY 11/19/18 11/19/18 History [Prevalite] clonidine HCl 0.1 mg PO BID 11/19/18 11/19/18 History furosemide 20 mg PO DAILY 11/19/18 11/19/18 History pantoprazole 40 mg PO BID 11/19/18 11/19/18 History rifaximin [Xifaxan] 550 mg PO BID 11/19/18 11/19/18 History tramadol 50 mg PO BID PRN 11/19/18 11/19/18 History venlafaxine 150 mg PO BID 11/19/18 11/19/18 History Inpatient Medication List Acetaminophen (Tylenol) 650 mg PO Q4H PRN PRN Reason: Moderate Pain Stop: 12/19/18 15:42 Last Admin: 11/22/18 09:09 Dose: 650 mg Admin: 11/19/18 17:27 Dose: 650 mg Bacitracin (Bacitracin) 1 appln EXT Q24H [facility] Stop: 12/19/18 15:59 Last Admin: 11/21/18 15:20 Dose: 1 appln Admin: 11/20/18 15:59 Dose: 1 appln Admin: 11/19/18 17:16 Dose: 1 appln Cholestyramine Resin (Questran) 4 gm PO DAILY [facility] Stop: 12/20/18 08:59 Last Admin: 11/22/18 10:00 Dose: 4 gm Admin: 11/21/18 09:08 Dose: 4 gm Admin: 11/20/18 10:14 Dose: Not Given Clonidine HCl (Catapres) 0.1 mg PO BID [facility] Stop: 12/19/18 20:59 Last Admin: 11/22/18 10:00 Dose: 0.1 mg Admin: 11/21/18 21:52 Dose: 0.1 mg Admin: 11/21/18 09:16 Dose: 0.1 mg Admin: 11/20/18 22:17 Dose: Not Given Admin: 11/20/18 10:13 Dose: Not Given Admin: 11/19/18 20:00 Dose: 0.1 mg Ceftriaxone Sodium 2,000 mg/ (Dextrose) 70 mls @ 100 mls/hr IV DAILY@1300 [facility]; Protocol Stop: 11/30/18 12:59 Last Infusion: 11/21/18 13:34 Dose: 0 mls/hr Admin: 11/21/18 12:42 Dose: 100 mls/hr Infusion: 11/20/18 15:20 Dose: 0 mls/hr Admin: 11/20/18 14:37 Dose: 100 mls/hr Dextrose (D5w) 1,000 mls @ 75 mls/hr IV .[id number] [facility] Stop: 12/22/18 08:44 Last Admin: 11/22/18 08:52 Dose: 75 mls/hr Vancomycin HCl 1,500 mg/ (Sodium Chloride) 530 mls @ 200 mls/hr IV NOW ONE Stop: 11/22/18 12:53 Last Admin: 11/22/18 10:20 Dose: 200 mls/hr Insulin Aspart (Novolog Flexpen) 0 units SC ACHS [facility] Stop: 12/21/18 17:29 Last Admin: 11/22/18 08:57 Dose: 1 units Admin: 11/21/18 21:50 Dose: Not Given Admin: 11/21/18 18:24 Dose: 2 units Lactulose (Chronulac) 30 gm PO Q8 [facility] Stop: 12/21/18 13:59 Last Admin: 11/22/18 06:02 Dose: 30 gm Admin: 11/21/18 21:47 Dose: 30 gm Admin: 11/21/18 14:56 Dose: 30 gm Lidocaine (Lidoderm 5%) 1 patch TD QAM [facility] Stop: 12/20/18 14:14 Last Admin: 11/22/18 09:00 Dose: 1 patch Admin: 11/21/18 09:08 Dose: 1 patch Admin: 11/20/18 15:58 Dose: 1 patch Miscellaneous (Remove Lidoderm Patch) 1 ea N/A DAILY@2100 [facility] Stop: 12/20/18 20:59 Last Admin: 11/21/18 21:50 Dose: 1 ea Admin: 11/20/18 21:48 Dose: 1 ea Pantoprazole Sodium (Protonix) 40 mg PO BID [facility] Stop: 12/19/18 20:59 Last Admin: 11/22/18 08:58 Dose: 40 mg Admin: 11/21/18 21:45 Dose: 40 mg Admin: 11/21/18 09:08 Dose: 40 mg Admin: 11/20/18 22:17 Dose: Not Given Admin: 11/20/18 10:13 Dose: Not Given Admin: 11/19/18 19:59 Dose: 40 mg Rifaximin (Xifaxan) 550 mg PO BID [facility] Stop: 12/19/18 20:59 Last Admin: 11/22/18 08:58 Dose: 550 mg Admin: 11/21/18 21:46 Dose: 550 mg Admin: 11/21/18 09:08 Dose: 550 mg Admin: 11/20/18 22:17 Dose: Not Given Admin: 11/20/18 10:14 Dose: Not Given Admin: 11/19/18 20:00 Dose: 550 mg Spironolactone (Aldactone) 50 mg PO DAILY [facility] Stop: 12/20/18 08:59 Last Admin: 11/22/18 08:58 Dose: 50 mg Admin: 11/21/18 09:08 Dose: 50 mg Admin: 11/20/18 10:13 Dose: Not Given Tramadol HCl (Ultram) 50 mg PO BID PRN PRN Reason: Pain Stop: 12/19/18 17:33 Last Admin: 11/22/18 10:28 Dose: 50 mg Admin: 11/21/18 21:52 Dose: 50 mg Admin: 11/19/18 17:54 Dose: 50 mg Venlafaxine HCl (Effexor Extended Release) 150 mg PO DAILY [facility]; Protocol Stop: 12/20/18 08:59 Last Admin: 11/22/18 08:58 Dose: 150 mg Admin: 11/21/18 09:07 Dose: 150 mg Admin: 11/20/18 10:13 Dose: Not Given Discontinued Medications Diphenhydramine HCl (Benadryl) 12.5 mg IV NOW STA Stop: 11/19/18 12:14 Last Admin: 11/19/18 12:25 Dose: 12.5 mg Sodium Chloride (Nss 1000ml) 1,000 mls @ 999 mls/hr IV .Q1H1M ONE Stop: 11/19/18 12:42 Last Infusion: 11/19/18 12:51 Dose: Infusion: 11/19/18 12:51 Dose: 0 mls/hr Admin: 11/19/18 11:49 Dose: 999 mls/hr Lorazepam (Ativan) 0.5 mg in 1 mls @ 1 mls/min IV NOW STA Stop: 11/19/18 12:14 Last Admin: 11/19/18 12:25 Dose: 1 mls/min Ceftriaxone Sodium (Rocephin) 1,000 mg in 50 mls @ 100 mls/hr IV NOW STA Stop: 11/19/18 13:25 Last Infusion: 11/19/18 13:43 Dose: 0 mls/hr Admin: 11/19/18 13:04 Dose: 100 mls/hr Sodium Chloride (Nss 1000ml) 1,000 mls @ 125 mls/hr IV .Q8H [facility] Stop: 11/20/18 15:49 Last Infusion: 11/20/18 17:42 Dose: 0 mls/hr Admin: 11/20/18 08:37 Dose: 125 mls/hr Infusion: 11/20/18 07:40 Dose: 125 mls/hr Infusion: 11/20/18 05:07 Dose: 125 mls/hr Admin: 11/19/18 23:40 Dose: 125 mls/hr Infusion: 11/19/18 23:40 Dose: 125 mls/hr Admin: 11/19/18 16:41 Dose: 125 mls/hr Sodium Chloride (Nss 1000ml) 1,000 mls @ 125 mls/hr IV .Q8H [facility] Stop: 12/21/18 03:59 Last Infusion: 11/21/18 07:52 Dose: 0 mls/hr Admin: 11/21/18 04:00 Dose: 125 mls/hr Lactated Ringer's (Lr) 1,000 mls @ 125 mls/hr IV .Q8H [facility] Stop: 12/21/18 13:14 Last Infusion: 11/22/18 08:52 Dose: 0 mls/hr Admin: 11/22/18 04:16 Dose: 125 mls/hr Infusion: 11/22/18 04:16 Dose: 125 mls/hr Admin: 11/21/18 21:48 Dose: 125 mls/hr Infusion: 11/21/18 21:48 Dose: 125 mls/hr Admin: 11/21/18 14:55 Dose: 125 mls/hr Calcium Gluconate 1,000 mg/ (Sodium Chloride) 60 mls @ 240 mls/hr IV NOW ONE Stop: 11/21/18 14:14 Last Infusion: 11/21/18 15:16 Dose: 0 mls/hr Admin: 11/21/18 14:55 Dose: 240 mls/hr Potassium Phosphate 24 mmol/ (Sodium Chloride) 508 mls @ 88 mls/hr IV ONE ONE Stop: 11/21/18 20:46 Last Infusion: 11/21/18 22:21 Dose: 0 mls/hr Admin: 11/21/18 15:20 Dose: 88 mls/hr Insulin Aspart (Novolog Flexpen) 0 units SC ACHS [facility] Stop: 12/19/18 16:29 Last Admin: 11/19/18 17:03 Dose: 1 units Insulin Aspart (Novolog Flexpen) 0 units SC Q6 [facility] Stop: 12/20/18 00:00 Last Admin: 11/21/18 12:41 Dose: 3 units Admin: 11/21/18 05:57 Dose: Not Given Admin: 11/20/18 23:46 Dose: 1 units Admin: 11/20/18 18:42 Dose: 2 units Admin: 11/20/18 13:11 Dose: 2 units Admin: 11/20/18 05:44 Dose: 1 units Admin: 11/19/18 23:55 Dose: 2 units Lactulose (Chronulac) 30 gm PO Q1H [facility] Stop: 11/20/18 16:08 Last Admin: 11/20/18 13:10 Dose: 30 gm Admin: 11/20/18 13:09 Dose: Not Given Admin: 11/20/18 13:09 Dose: Not Given Admin: 11/20/18 10:53 Dose: 30 gm Admin: 11/20/18 10:51 Dose: Not Given Admin: 11/20/18 08:39 Dose: 30 gm Admin: 11/20/18 08:38 Dose: Not Given Admin: 11/20/18 05:43 Dose: Not Given Admin: 11/20/18 05:05 Dose: Not Given Admin: 11/20/18 04:04 Dose: Not Given Admin: 11/20/18 03:11 Dose: Not Given Admin: 11/20/18 02:09 Dose: Not Given Admin: 11/20/18 01:49 Dose: Not Given Admin: 11/20/18 00:46 Dose: Not Given Admin: 11/20/18 00:03 Dose: Not Given Admin: 11/19/18 22:26 Dose: Not Given Admin: 11/19/18 21:45 Dose: Not Given Admin: 11/19/18 20:12 Dose: Not Given Admin: 11/19/18 19:59 Dose: 30 gm Admin: 11/19/18 18:33 Dose: 30 gm Admin: 11/19/18 17:17 Dose: 30 gm Admin: 11/19/18 17:17 Dose: Not Given Ondansetron HCl (Zofran) 4 mg IV NOW STA Stop: 11/19/18 11:43 Last Admin: 11/19/18 11:56 Dose: 4 mg Description This is a 21 electrode EEG with a single channel dedicated to limited EKG. The electrodes were placed in accordance with the International 10-20 system. There was moderate diffuse muscle and movement artifact that frequently limited the read of this EEG. At the start of this recording the patient was awake but in reported altered mental status. Background was poorly organized with no well-formed anterior posterior gradient. Background was composed of symmetric moderate amplitude 4- 6 Hz delta and theta frequencies with intermixed alpha frequencies and occasional intermittent brief generalized delta wave slowing. Hyperventilation and photic stimulation were not done. There was no state changes or sleep transients. Interpretation This is an abnormal routine EEG secondary to moderate background disorganization and slowing. There was no electrographic seizures or epileptiform discharges. Clinical Correlation This EEG indicates moderate encephalopathy of nonspecific etiology. There was mild to moderate technical limitation of this EEG due to muscle artifact and frequent movement artifact.
[2018-11-22] MEDS: INSULIN GLARGINE SOLOSTAR 100 UNITS/ML 3 ML PEN SC SCH (11:31)
--- NOTE | 2018-11-22 12:42 | Gastrointestinal Consultation ---
Date of Consultation November 22, 2018 Supervising Physician Co-Signing Physician Notes ASSESSMENT AND PLAN: Pt is a 63 y/o female found on ground at home for unknown period of time; on evaluation she is confused and found to have urinary retention, and mild hydroureteronephrosis, several signs of dehydration and pressure ulcers formation. First sets of blood cx grew alpha strep and coag negative staph, urine cx negative. She is on Vancomycin and Ceftriaxone IV. GI consulted for "acute on chronic liver failure". She has hx of HCV cirrhosis and hasn't followed up in our clinic since 2013. However no acute signs of liver failure ( no significant transaminitis) or liver disease decompensation (other than confusion, no signs of GI bleeding, zakiya ascites, asterixis, edema). MELD 19. - Defer antibiotic management and electrolyte correction per primary team - Continue Xifaxan 550mg BID and Lactulose 30g TID (goal 3-5 BMs daily) - Infectious workup (blood cx and urine culture results as noted above), CXR emphysematous changes; CT abd/pelvis w/o free fluid but will obtain u/s limited check for ascites and if present will order diagnostic paracentesis to r/o SBP - Vit K 5mg IV x 1 dose - No acute GI needs; We will follow peripherally and will help make f/u visit upon pt's discharge to continue management of her cirrhosis. ATTESTATION: I have performed a history and physical examination of this patient and reviewed the electronic medical record. Specifically, on physical examination patient is arousable but confused with mild diffuse abdominal tenderness. I have discussed the case with ALEENA Hastings. The above note reflects my findings, conclusions, and recommendations. Elliot Jay MD History of Present Illness Reason for Consultation: "Acute on chronic liver failure" Requesting Physician: Dr. Silverio Rizo Attending Physician: Dr. Elliot Jay History of Present Illness Pt is a 63 y/o female who was brought to ED after found being on the ground at home for unknown amount of time. Pt is confused, unable to even tell me her full name or birthdate. No family or caregiver at bedside. History obtain from chart review. Pt w PMHx of HCV cirrhosis ? prior treatment in 2014 w [facility] though HCV RNA in 2016 is still positive; also hx of skin ca, DM II, COPD, tobacco abuse, epilepsy, migraines, OP, depression, anxiety. On eval during admission she was noted to have urinary retention, 1050mL out from joel cath and also noted to have hematuria. CT abd/pelvis showed bilateral acute pelvic fractures, R hydroureteronephrosis and possibly recently passed calculus. Liver appear cirrhotic, she is s/p cholecystectomy w mild biliary dilation. No acute process such as obstruction in bowels. CXR w emphysematous changes. Head CT w/o acute changes. Ammonia 57 on admission Labs reviewed - initial labs showed signs of hemoconcentration, dehydration ( elevated Na, BUN/Cr, LFTs). Currently for last few days Hgb down from 14 to 10 but stable and w/o GI s/s of bleeding. Na still up 162, BUN/Cr as well as LFTs normalizing. Albumin low 1.5. INR 2.2. Utox and ETOH negative. Blood cx grew initially alpha strep and coag negative staph, urine cx negative. She is currently on Ceftriaxone and Vancomycin IV On exam, she is confused. She is getting echocardiogram. HRR, lungs w diminished sounds. She grimaces on palpation of abd. No signs of distension or fluid wave. No edema. RN reports no signs of GI bleeding such as hematemesis, coffee ground emesis or melena. She does have pressure ulcers on bottom per RN. Pt hasn't been seen in GI clinic since 2013 (previously saw Dr. Garcia) Last EGD [address] scan from 07/2018 w signs of portal HTN, splenomegaly and varices Last colonoscopy 2010 diverticulosis and non bleeding angioectasia Allergies Allergy/AdvReac Type Severity Reaction Status Date / Time coconut Allergy Unknown ANAPHYLAXIS Verified 11/19/18 11:15 modafinil AdvReac Severe MAKES HYPER Verified 11/19/18 11:15 sulfamethoxazole AdvReac Intermediate PT STATES Verified 11/19/18 11:15 NOT GOOD FOR LIVER zolpidem AdvReac Intermediate LIVER Verified 11/19/18 11:15 PROBLEMS morphine AdvReac Mild hallucinati Verified 11/19/18 11:15 ons Home Medications Home Medications Medication Instructions Recorded Confirmed Type alendronate 70 mg PO WK 07/31/18 11/19/18 History ketoconazole 1 applic TOPICAL WK 07/31/18 11/19/18 History loperamide 2 mg PO 5XD 07/31/18 11/19/18 History spironolactone 1 tab PO DAILY 07/31/18 11/19/18 History cholestyramine-aspartame 1 packet PO DAILY 11/19/18 11/19/18 History [Prevalite] clonidine HCl 0.1 mg PO BID 11/19/18 11/19/18 History furosemide 20 mg PO DAILY 11/19/18 11/19/18 History pantoprazole 40 mg PO BID 11/19/18 11/19/18 History rifaximin [Xifaxan] 550 mg PO BID 11/19/18 11/19/18 History tramadol 50 mg PO BID PRN 11/19/18 11/19/18 History venlafaxine 150 mg PO BID 11/19/18 11/19/18 History Patient History Medical History Tobacco use Skin cancer of face Cirrhosis, nonalcoholic Chronic hepatitis C Transaminitis Acute renal failure (Acute) Acute urinary retention (Acute) Liver failure (Acute) Sacral fracture (Acute) Migraine (Acute) Generalized-onset seizures (Resolved 01/23/13) Hepatic encephalopathy (Acute 01/23/13) Osteoporosis (Chronic Unknown) Generalized convulsive epilepsy (Chronic Unknown) Asthma (Chronic) Cataracts, bilateral Diabetes mellitus with hyperglycemia (Resolved) Atrial fibrillation with rapid ventricular response Family History Other No significant family history Social History Current Living Situation: Alone Current Living Situation Comment: home health nurse visits Other Information That Helps Us Care for You: No Feels Safe at Home: Yes Smoking Status: Unknown if ever smoked Beliefs That Will Affect Care: None Communication Ability: Effective Review of Systems Unable to obtain due to pt's confusion Physical Exam 2 Vital Signs (Past 24 Hours): Last Vital Signs Temp 36.6 C 11/22/18 11:41 Pulse 79 11/22/18 11:41 Resp 18 11/22/18 11:41 BP 129/72 11/22/18 11:41 Pulse Ox 91 11/22/18 11:41 Constitutional: + ill appearing, + thin, + disheveled, cooperative and comfortable Eyes: PERRL, conjunctivae normal, anicteric sclerae ENMT: external ear and nose normal, oropharynx normal Respiratory: normal respiratory effort; no respiratory distress and does not use accessory muscles Auscultation: + diminished lung sounds Cardiovascular: RRR, no murmur, no edema Gastrointestinal (Abdomen): Percussion/Palpation: + abdomen tender and abdomen soft; no guarding and no fluid wave Skin: + wound (small scabbed over wounds on bilateral legs ); no jaundice Overgrown nails on toes Neurologic: Motor/Sensory: no asterixis Psychiatric: Orientation: alert Responds to name called but cannot even tell me her birthdate, current place, time. Lymphatic: no lymphedema Results & Data Laboratory Results Laboratory Results - last 48 hr 11/20/18 11/20/18 11/21/18 18:40 23:45 05:57 WBC RBC Hgb Hct MCV MCH MCHC RDW Std Deviation RDW Coeff of Elbert Plt Count MPV PT INR Sodium Potassium Chloride Carbon Dioxide Anion Gap BUN Creatinine Est Cr Clr Drug Dosing Est GFR ( Amer) Est GFR (Non-Af Amer) BUN/Creatinine Ratio Glucose POC Glucose 190 H 168 H 159 H Calcium Phosphorus Magnesium Total Bilirubin AST ALT Alkaline Phosphatase Ammonia Total Protein Albumin Globulin Albumin/Globulin Ratio 11/21/18 11/21/18 11/21/18 06:30 06:30 06:30 WBC 3.07 L RBC 3.89 L Hgb 10.6 L Hct 33.9 L MCV 87.1 MCH 27.2 MCHC 31.3 L RDW Std Deviation 60.1 H RDW Coeff of Elbert 19.7 H Plt Count 66 L MPV 10.6 H PT 19.5 H INR 2.0 H Sodium 158 H* Potassium 3.5 Chloride 129 H Carbon Dioxide 23 Anion Gap 5.0 BUN 40 H Creatinine 1.06 Est Cr Clr Drug Dosing 38.0 Est GFR ( Amer) 63.8 Est GFR (Non-Af Amer) 55.1 BUN/Creatinine Ratio 37.6 H Glucose 189 H POC Glucose Calcium 7.5 L Phosphorus 2.0 L D Magnesium 2.3 Total Bilirubin 2.8 H AST 37 ALT 25 Alkaline Phosphatase 130 H Ammonia Total Protein 6.4 Albumin 1.5 L Globulin 4.9 H Albumin/Globulin Ratio 0.3 L 11/21/18 11/21/18 11/21/18 11:25 16:44 20:49 WBC RBC Hgb Hct MCV MCH MCHC RDW Std Deviation RDW Coeff of Elbert Plt Count MPV PT INR Sodium Potassium Chloride Carbon Dioxide Anion Gap BUN Creatinine Est Cr Clr Drug Dosing Est GFR ( Amer) Est GFR (Non-Af Amer) BUN/Creatinine Ratio Glucose POC Glucose 233 H 204 H 139 H Calcium Phosphorus Magnesium Total Bilirubin AST ALT Alkaline Phosphatase Ammonia Total Protein Albumin Globulin Albumin/Globulin Ratio 11/22/18 11/22/18 11/22/18 07:02 07:02 07:02 WBC 2.16 L RBC 3.79 L Hgb 10.3 L Hct 33.7 L MCV 88.9 MCH 27.2 MCHC 30.6 L RDW Std Deviation 63.3 H RDW Coeff of Elbert 19.9 H Plt Count 51 L MPV 9.4 PT 21.6 H INR 2.2 H Sodium 162 H* Potassium 3.8 Chloride 132 H Carbon Dioxide 23 Anion Gap 6.0 BUN 27 H Creatinine 1.07 Est Cr Clr Drug Dosing 41.5 Est GFR ( Amer) 63.1 Est GFR (Non-Af Amer) 54.4 BUN/Creatinine Ratio 25.6 H Glucose 188 H POC Glucose Calcium 7.5 L Phosphorus 2.3 L Magnesium 1.8 Total Bilirubin 2.3 H AST 36 ALT 23 Alkaline Phosphatase 127 H Ammonia Total Protein 6.1 L Albumin 1.5 L Globulin 4.6 H Albumin/Globulin Ratio 0.3 L 11/22/18 11/22/18 11/22/18 07:58 08:57 11:28 WBC RBC Hgb Hct MCV MCH MCHC RDW Std Deviation RDW Coeff of Elbert Plt Count MPV PT INR Sodium 162 H* Potassium 4.0 Chloride 132 H Carbon Dioxide 24 Anion Gap 6.0 BUN 28 H Creatinine 1.15 Est Cr Clr Drug Dosing 38.6 Est GFR ( Amer) 57.8 Est GFR (Non-Af Amer) 49.9 BUN/Creatinine Ratio 24.3 H Glucose 202 H POC Glucose 176 H 228 H Calcium 7.7 L Phosphorus Magnesium Total Bilirubin AST ALT Alkaline Phosphatase Ammonia Total Protein Albumin Globulin Albumin/Globulin Ratio 11/22/18 11/22/18 12:15 12:16 WBC RBC Hgb Hct MCV MCH MCHC RDW Std Deviation RDW Coeff of Elbert Plt Count MPV PT INR Sodium 160 H* Potassium 3.8 Chloride 131 H Carbon Dioxide 23 Anion Gap 6.0 BUN 28 H Creatinine 1.09 Est Cr Clr Drug Dosing 40.7 Est GFR ( Amer) 61.7 Est GFR (Non-Af Amer) 53.2 BUN/Creatinine Ratio 25.8 H Glucose 241 H POC Glucose Calcium 7.3 L Phosphorus Magnesium Total Bilirubin AST ALT Alkaline Phosphatase Ammonia 39.6 H Total Protein Albumin Globulin Albumin/Globulin Ratio
--- NOTE | 2018-11-22 12:43 | Hospitalist Progress Note ---
Date of Service November 22, 2018 Assessment & Plan (1) Hepatic encephalopathy: Ammonia 57 on admission, repeat 39 Continue lactulose, Xifaxan 550 mg bid Consulted GI (2) Liver failure: INR 2.2 today which has increased from 1.7 on admission, low albumin - may be nutritional due to inability to care for herself Consulted GI - they ordered vitamin k replacement LFTs trending down (3) Cirrhosis, nonalcoholic: Consulted GI Palliative consult (4) Chronic hepatitis C: -Follows with [facility] hepatology as an outpatient, had been on Lasix , Aldactone, lactulose and Xifaxan, however did not see lactulose as an outpatient medication. 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 She stopped having diarrhea one week prior to admission. - s/p Josiah tx in 2014 GI consult (5) Transaminitis: Transaminases wnl (6) Fever: 1/7 - Unclear source. No obvious skin infections or oral lesions. Will order echo to assess for vegetations. Repeat BC, initial blood culture grew staph species, no sensitivities. Will add vancomycin for coverage for MRSA. UC negative. (7) Acute urinary retention: -Patient found to have 1 L out of urine after cath upon admission into the ER -Appears to be hematuria, started on ceftriaxone, will continue for now. Patient continues to have hematuria. -CT shows that patient may have recently passed a stone, with large stone burden on the left side. There is also mild hydroureteronephrosis. -UA appears infected but cultures no growth (8) Acute renal failure: Resolved -Creatinine on admission 3.0 and trended down Continue IVF (9) Sacral fracture: -CT imaging reviewed, discussed with the ER and there is apparently no surgical fixation required with this type of fracture -Consulted orthopedics -Patient will need pain management prior to discharge, avoid narcotics at this time due to hepatic encephalopathy. -PT/OT (10) Migraine: -Patient has severe migraine issues, has followed with Dr. Bowles in the outpatient setting -Chronic pain of face from skin cancer adds to migraine issues -Will hold current outpatient tramadol due to hepatic encephalopathy as above, has used oxycodone in the past, however not on this now. (11) Generalized convulsive epilepsy: - consulted neuro - they do not feel there is evidence for seizure activity, EEG without any sign of seizure, recommend against starting antiseizure meds right not due to possilbility of exacerbating encephalopathy. -Continue on Effexor and alprazolam (12) Diabetes mellitus with hyperglycemia: A1C is currently 6.3 - Iss with accuchecks achs - blood sugars have been somewhat elevated - lantus started per pharmacy rec as D5 initiated for hypernateremia (13) Osteoporosis: (14) Skin cancer of face: - Status unknown, pt uses tramadol per outpt notes for pain relief and this also adds to migraines. (15) Tobacco use: - Obtain social hx when mentating, no nicotine patch at this time. (16) Hypernatremia: Na 162 - Free water fluid deficit 2L. D5 @ 1.35 ml/kg/hr started - 75 ml/ hr. Q4h prp with goal to decrease sodium by less than 10 mEq in 24 hours. (17) Hypocalcemia: 1g calcium given 11/21 - when corrected for albumin, calcium 9.3 on 11/22 (18) Hypophosphatemia: repeat phos replacement toda, phos is 2.3 (19) DVT prophylaxis: - teds, scds, no chemical due to hematuria and thrombocytopenia Subjective Patient is awake but unable to answer any of my questions. Physical Exam 2 Vital Signs (Past 24 Hours): Last Vital Signs Temp 36.6 C 11/22/18 11:41 Pulse 79 11/22/18 11:41 Resp 18 11/22/18 11:41 BP 129/72 11/22/18 11:41 Pulse Ox 91 11/22/18 11:41 Physical Exam: General: no distress Eyes: normal inspection, PERLL Respiratory: chest non tender, clear to auscultation, normal breath sounds, no respiratory distress, no accessory muscle use Cardiac: regular rate and rhythm, no rub or gallop, no murmur, no edema, no jvd GI/: active bowel sounds, no abd pain or tenderness, soft, non distended Extremities: normal range of motion, normal strength, non tender Neuro/Psych: alert and oriented x 3, normal mood and affect Skin: normal color, dry, multiple sores on bilateral feet and legs. Skin tear left arm Results & Data Laboratory Results Abnormal lab results 11/21/18 11/21/18 11/22/18 Range/Units 16:44 20:49 07:02 WBC 2.16 L (4.8-10.8) K/uL RBC 3.79 L (4.2-5.4) M/uL Hgb 10.3 L (12.0-16.0) g/dL Hct 33.7 L (37-47) % MCHC 30.6 L (32-36) g/dL RDW Std Deviation 63.3 H (36.4-46.3) fL RDW Coeff of Elbert 19.9 H (11.5-14.5) % Plt Count 51 L (130-400) K/uL PT (9.0-12.0) Seconds INR (0.9-1.1) Sodium (136-145) mmol/L Chloride (98-107) mmol/L BUN (7-18) mg/dl BUN/Creatinine Ratio (10-20) Glucose (70-99) mg/dl POC Glucose 204 H 139 H (70-99) Calcium (8.5-10.1) mg/dl Phosphorus (2.5-4.9) mg/dl Total Bilirubin (0.2-1) mg/dl Alkaline Phosphatase (45-117) U/L Total Protein (6.4-8.2) gm/dl Albumin (3.4-5.0) gm/dl Globulin (2.5-4.0) gm/dl Albumin/Globulin Ratio (0.9-2) 11/22/18 11/22/18 11/22/18 Range/Units 07:02 07:02 07:58 WBC (4.8-10.8) K/uL RBC (4.2-5.4) M/uL Hgb (12.0-16.0) g/dL Hct (37-47) % MCHC (32-36) g/dL RDW Std Deviation (36.4-46.3) fL RDW Coeff of Elbert (11.5-14.5) % Plt Count (130-400) K/uL PT 21.6 H (9.0-12.0) Seconds INR 2.2 H (0.9-1.1) Sodium 162 H* (136-145) mmol/L Chloride 132 H (98-107) mmol/L BUN 27 H (7-18) mg/dl BUN/Creatinine Ratio 25.6 H (10-20) Glucose 188 H (70-99) mg/dl POC Glucose 176 H (70-99) Calcium 7.5 L (8.5-10.1) mg/dl Phosphorus 2.3 L (2.5-4.9) mg/dl Total Bilirubin 2.3 H (0.2-1) mg/dl Alkaline Phosphatase 127 H (45-117) U/L Total Protein 6.1 L (6.4-8.2) gm/dl Albumin 1.5 L (3.4-5.0) gm/dl Globulin 4.6 H (2.5-4.0) gm/dl Albumin/Globulin Ratio 0.3 L (0.9-2) 11/22/18 11/22/18 Range/Units 08:57 11:28 WBC (4.8-10.8) K/uL RBC (4.2-5.4) M/uL Hgb (12.0-16.0) g/dL Hct (37-47) % MCHC (32-36) g/dL RDW Std Deviation (36.4-46.3) fL RDW Coeff of Elbert (11.5-14.5) % Plt Count (130-400) K/uL PT (9.0-12.0) Seconds INR (0.9-1.1) Sodium 162 H* (136-145) mmol/L Chloride 132 H (98-107) mmol/L BUN 28 H (7-18) mg/dl BUN/Creatinine Ratio 24.3 H (10-20) Glucose 202 H (70-99) mg/dl POC Glucose 228 H (70-99) Calcium 7.7 L (8.5-10.1) mg/dl Phosphorus (2.5-4.9) mg/dl Total Bilirubin (0.2-1) mg/dl Alkaline Phosphatase (45-117) U/L Total Protein (6.4-8.2) gm/dl Albumin (3.4-5.0) gm/dl Globulin (2.5-4.0) gm/dl Albumin/Globulin Ratio (0.9-2) _ (1) Liver failure Hepatic coma status: without hepatic coma Liver failure chronicity: acute Qualified Code(s): K72.00 - Acute and subacute hepatic failure without coma (2) Acute renal failure Acute renal failure type: unspecified Qualified Code(s): N17.9 - Acute kidney failure, unspecified (3) Sacral fracture Encounter type: initial encounter Fracture alignment: Fracture healing: Fracture morphology: unspecified fracture morphology Fracture type: closed Zone of sacrum fracture: Qualified Code(s): S32.10XA - Unspecified fracture of sacrum, initial encounter for closed fracture
[2018-11-22 12:48] LABS: BUN Creatinine Ratio 25.8 (10-20); Calcium 7.3 mg/dl (8.5-10.1); Creatinine Clr Calc Pharmacy 40.7 ml/min; Est GFR (African American) 61.7; Est GFR (Non-African American) 53.2; Potassium 3.8 mmol/L (3.5-5.1)
[2018-11-22] MEDS ORDERED: PHYTONADIONE 5 MG in SODIUM CHLORIDE 0.9% 50 ML IV ONE (13:04)
[2018-11-22] MEDS ORDERED: POTASSIUM PHOS 3 MMOL/1 ML INFUSION IV STA (13:33)
[2018-11-22] MEDS ORDERED: POTASSIUM PHOSPHATE 15 MMOL in SODIUM CHLORIDE 0.9% 250 ML IV ONE (14:00)
--- NOTE | 2018-11-22 14:21 | Ultrasound Report ---
LIMITED ABDOMINAL ULTRASOUND FOR ASCITES EVALUATION CLINICAL HISTORY: Abdominal distention possible ascites COMPARISON STUDY: CT scan dated 09/21/2016 FINDINGS: Abdominal survey was performed for ascites evaluation. No ascitic fluid was identified. IMPRESSION: No evidence of ascites Electronically signed by: Patrick Rodriguez M.D. 11/22/2018 2:20 PM
[2018-11-22] MEDS: cefTRIAXone SODIUM 2,000 MG in DEXTROSE 5% 50 ML IV SCH (14:41)
[2018-11-22] MEDS: BACITRACIN OINT 15 GM TUBE EXT SCH (16:41)
[2018-11-22 17:36] LABS: BUN Creatinine Ratio 24.9 (10-20); Calcium 7.3 mg/dl (8.5-10.1); Creatinine Clr Calc Pharmacy 42.3 ml/min; Est GFR (African American) 64.5; Est GFR (Non-African American) 55.7; Potassium 4.2 mmol/L (3.5-5.1)
[2018-11-22 21:20] LABS: BUN Creatinine Ratio 22.4 (10-20); Calcium 6.9 mg/dl (8.5-10.1); Creatinine Clr Calc Pharmacy 41.9 ml/min; Est GFR (African American) 63.8; Est GFR (Non-African American) 55.1
[2018-11-23 00:42] LABS: BUN Creatinine Ratio 23.4 (10-20); Est GFR (African American) 67.7; Est GFR (Non-African American) 58.4; Potassium 3.9 mmol/L (3.5-5.1)
[2018-11-23] MEDS: PHYTONADIONE 10 MG in SODIUM CHLORIDE 0.9% 50 ML IV SCH ×2 (01:54→08:17)
[2018-11-23] MEDS: LACTULOSE SYRUP 30 GM/45 ML UDP PO SCH ×3 (04:48→19:20)
[2018-11-23 06:18] LABS: Hematocrit (blood only) 37.5 % (37-47); Hemoglobin 11.2 g/dL (12.0-16.0); Mean Corpuscular Hgb Conc 29.9 g/dL (32-36); Mean Corpuscular Volume 89.7 fL (80-100); Mean Platelet Volume 10.4 fL (7.4-10.4); Platelet Count 62 K/uL (130-400); RDW Coefficient of Variation 19.3 % (11.5-14.5); RDW Standard Deviation 61.7 fL (36.4-46.3); Red Blood Count 4.18 M/uL (4.2-5.4); White Blood Count 3.36 K/uL (4.8-10.8)
[2018-11-23 06:29] LABS: INR 2.1 (0.9-1.1); Prothrombin Time 20.4 Seconds (9.0-12.0)
[2018-11-23 06:56] LABS: BUN Creatinine Ratio 18.8 (10-20); Creatinine Clr Calc Pharmacy 39.6 ml/min; Est GFR (African American) 58.4; Est GFR (Non-African American) 50.4; Phosphorus 1.6 mg/dl (2.5-4.9); Potassium 3.8 mmol/L (3.5-5.1)
[2018-11-23 07:07] LABS: Anisocytosis Present; Basophils # (auto) 0.02 K/uL (0-0.2); Basophils % (auto) 0.6 %; Eosinophils # (auto) 0.08 K/uL (0-0.5); Eosinophils % (auto) 2.4 %; Immature Granulocytes # (auto) 0.03 K/uL (0.00-0.02); Immature Granulocytes % (auto) 0.9 %; Lymphocytes # (auto) 0.67 K/uL (1.2-3.4); Lymphocytes % (auto) 19.9 %; Monocytes % (auto) 8.9 %; Neutrophils # (auto) 2.26 K/uL (1.4-6.5); Neutrophils % (auto) 67.3 %; Polychromasia 1+
[2018-11-23] MEDS: ACETAMINOPHEN 325 MG TAB PO PRN (08:08)
[2018-11-23] MEDS: PANTOprazole 40 MG TAB PO SCH ×2 (08:08→19:20)
[2018-11-23] MEDS: RIFAXIMIN 550 MG TABLET PO SCH ×2 (08:08→19:19)
[2018-11-23] MEDS: VENLAFAXINE HCL XR 150 MG CAPXR PO SCH (08:08)
[2018-11-23] MEDS: cloNIDine HCl 0.1 MG TAB PO SCH ×2 (08:09→19:19)
[2018-11-23] MEDS: LIDOCAINE 5% 1 PATCH TD SCH (08:09)
[2018-11-23] MEDS: SPIRONOLACTONE 25 MG TAB PO SCH (08:09)
[2018-11-23] MEDS: CHOLESTYRAMINE LIGHT 4 GM PKT PO SCH (08:09)
[2018-11-23] MEDS: INSULIN GLARGINE SOLOSTAR 100 UNITS/ML 3 ML PEN SC SCH (08:10)
[2018-11-23] MEDS: INSULIN ASPART 100 UNITS/ML 3 ML PEN SC SCH ×4 (08:11→21:18)
[2018-11-23] MEDS ORDERED: POTASSIUM PHOS 3 MMOL/1 ML INFUSION IV STA (08:46)
[2018-11-23] MEDS ORDERED: SODIUM CHLORIDE 0.45 % 1,000 ML IV SCH (09:00)
[2018-11-23] MEDS ORDERED: POTASSIUM PHOSPHATE 24 MMOL in SODIUM CHLORIDE 0.9% 500 ML IV ONE (09:30)
[2018-11-23 10:16] LABS: BUN Creatinine Ratio 18.1 (10-20); Calcium 6.9 mg/dl (8.5-10.1); Creatinine Clr Calc Pharmacy 43.4 ml/min; Est GFR (African American) 65.3; Est GFR (Non-African American) 56.3; Potassium 3.3 mmol/L (3.5-5.1)
--- NOTE | 2018-11-23 10:25 | Neurology Progress Note ---
Date of Service November 23, 2018 Assessment & Plan (1) Seizure disorder: Overall, the patient is a less encephalopathic than yesterday. She has been off levetiracetam and has had no seizure activity. EEG showed slowing consistent with encephalopathy but nothing focal and no potentially epileptogenic discharges. I suspect an hepatic origin to the encephalopathy The patient has a history of cirrhosis and liver failure. She has chronic hepatitis C. She has a history of migraine headaches . Currently she has a nonspecific bifrontal tension type headache. Recommendations: 1. Keep off levetiracetam. This could be adding to encephalopathy in an elderly woman anyway. 2. Physical, Occupational, and speech therapy. 3. The pain control as you are doing, avoid potentially addictive medications 4. Please contact me if I can be of further assistance. Overall, I spent a total of 25 minutes with this case including records review, evaluation the patient at bedside, and discussion of the case with clinical staff and Lashonda Duff regarding differential diagnosis and treatment options. Subjective The patient complains of back pain and pain radiating down both legs. Her abdomen hurts and she has a mild bifrontal headache. She has nausea as well. Nursing reports no further seizures or abnormal activity. Echocardiogram was largely unremarkable. She is afebrile and vital signs are stable. EEG was remarkable for the moderate slowing consistent with her encephalopathy. There are no focal findings or potentially epileptogenic discharges. Neurologic: + generalized weakness; no tremor(s) and no headache(s) Physical Exam 2 Vital Signs (Past 24 Hours): Last Vital Signs Temp 36.3 C L 11/23/18 06:54 Pulse 85 11/23/18 06:54 Resp 18 11/23/18 06:54 BP 119/76 11/23/18 06:54 Pulse Ox 100 11/23/18 06:54 Physical Exam: She is awake and alert. Speech is without aphasia or dysarthria. She is calm and cooperative. She follows one-step commands well. Strength is symmetrical in the limbs. Extraocular eye muscles are intact without nystagmus. There is no asterixis. There is no facial droop. Tongue is midline. No abnormal involuntary movements today.
--- NOTE | 2018-11-23 10:56 | Gastroenterology Progress Note ---
Date of Service November 23, 2018 Assessment & Plan (1) Chronic hepatitis C: Present on Admission?: Yes (2) Cirrhosis, nonalcoholic: Pt is a 63 y/o female found on ground at home for unknown period of time; on evaluation she is confused and found to have urinary retention, and mild hydroureteronephrosis, several signs of dehydration and pressure ulcers formation. First sets of blood cx grew alpha strep and coag negative staph, urine cx negative. She is on Vancomycin and Ceftriaxone IV. GI consulted for "acute on chronic liver failure". She has hx of HCV cirrhosis and hasn't followed up in our clinic since 2013. However no acute signs of liver failure ( no significant transaminitis) or liver disease decompensation (other than confusion, no signs of GI bleeding, zakiya ascites, asterixis, edema). MELD 19. - Defer antibiotic management and electrolyte correction per primary team - Continue Xifaxan 550mg BID and Lactulose 30g TID (goal 3-5 BMs daily) - Infectious workup (blood cx and urine culture results as noted above), CXR emphysematous changes; CT abd/pelvis w/o free fluid but will obtain u/s limited check for ascites and if present will order diagnostic paracentesis to r/o SBP - > no signs of ascites to tap - Would recommend against scheduling Vitamin K IV administration (currently on Phytonadione 10mg IV q8h); recommend giving Vit K 10mg IV dose x 1 today and repeat INR check tomorrow. - No need to check ammonia level daily - No acute GI needs; We will sign off and will help make f/u visit upon pt's discharge to continue management of her cirrhosis. Present on Admission?: Yes Supervising Physician Co-Signing Physician Notes I have performed a history and physical examination of this patient and reviewed the electronic medical record. Specifically, on physical examination there is no abdominal tenderness. I have discussed the case with ALEENA Hastings. The above note reflects my findings, conclusions, and recommendations. Elliot Jay MD Subjective Pt seen sitting up in bed, feeding herself breakfast. She denies any abd pain, no N/V. Still is confused only oriented to self, not place or time. RN reports no BMs overnight. Labs reviewed - H/H stable. INR still 2.1. Cr 1.1, Na improed to 148. Physical Exam 2 Vital Signs (Past 24 Hours): Last Vital Signs Temp 36.3 C L 11/23/18 06:54 Pulse 85 11/23/18 06:54 Resp 18 11/23/18 06:54 BP 119/76 11/23/18 06:54 Pulse Ox 100 11/23/18 06:54 Constitutional: + thin, + frail appearing and + disheveled Eyes: PERRL, conjunctivae normal, anicteric sclerae ENMT: external ear and nose normal, oropharynx normal Respiratory: normal respiratory effort, lungs clear to auscultation Cardiovascular: RRR, no murmur, no edema Gastrointestinal (Abdomen): normal bowel sounds, soft, nontender, no hepatosplenomegaly Skin: no jaundice small wounds on legs that's healing/scabbed over. Overgrown toenails. Neurologic: Motor/Sensory: no asterixis Psychiatric: Orientation: alert, oriented to person and cooperative; + not oriented to place and + not oriented to time Apperance: + disheveled Lymphatic: no lymphedema Results & Data Laboratory Results Laboratory Results - last 48 hr 11/21/18 11/21/18 11/21/18 11:25 16:44 20:49 WBC RBC Hgb Hct MCV MCH MCHC RDW Std Deviation RDW Coeff of Elbert Plt Count MPV Immature Gran % (Auto) Neut % (Auto) Lymph % (Auto) [place] % (Auto) Eos % (Auto) Baso % (Auto) Immature Gran # (Auto) Neut # (Auto) Lymph # (Auto) [place] # (Auto) Eos # (Auto) Baso # (Auto) Polychromasia Anisocytosis PT INR Sodium Potassium Chloride Carbon Dioxide Anion Gap BUN Creatinine Est Cr Clr Drug Dosing Est GFR ( Amer) Est GFR (Non-Af Amer) BUN/Creatinine Ratio Glucose POC Glucose 233 H 204 H 139 H Osmolality Calcium Phosphorus Magnesium Total Bilirubin AST ALT Alkaline Phosphatase Ammonia Total Protein Albumin Globulin Albumin/Globulin Ratio Urine Osmolality 11/22/18 11/22/18 11/22/18 07:02 07:02 07:02 WBC 2.16 L RBC 3.79 L Hgb 10.3 L Hct 33.7 L MCV 88.9 MCH 27.2 MCHC 30.6 L RDW Std Deviation 63.3 H RDW Coeff of Elbert 19.9 H Plt Count 51 L MPV 9.4 Immature Gran % (Auto) Neut % (Auto) Lymph % (Auto) [place] % (Auto) Eos % (Auto) Baso % (Auto) Immature Gran # (Auto) Neut # (Auto) Lymph # (Auto) [place] # (Auto) Eos # (Auto) Baso # (Auto) Polychromasia Anisocytosis PT 21.6 H INR 2.2 H Sodium 162 H* Potassium 3.8 Chloride 132 H Carbon Dioxide 23 Anion Gap 6.0 BUN 27 H Creatinine 1.07 Est Cr Clr Drug Dosing 41.5 Est GFR ( Amer) 63.1 Est GFR (Non-Af Amer) 54.4 BUN/Creatinine Ratio 25.6 H Glucose 188 H POC Glucose Osmolality Calcium 7.5 L Phosphorus 2.3 L Magnesium 1.8 Total Bilirubin 2.3 H AST 36 ALT 23 Alkaline Phosphatase 127 H Ammonia Total Protein 6.1 L Albumin 1.5 L Globulin 4.6 H Albumin/Globulin Ratio 0.3 L Urine Osmolality 11/22/18 11/22/18 11/22/18 07:58 08:57 11:28 WBC RBC Hgb Hct MCV MCH MCHC RDW Std Deviation RDW Coeff of Elbert Plt Count MPV Immature Gran % (Auto) Neut % (Auto) Lymph % (Auto) [place] % (Auto) Eos % (Auto) Baso % (Auto) Immature Gran # (Auto) Neut # (Auto) Lymph # (Auto) [place] # (Auto) Eos # (Auto) Baso # (Auto) Polychromasia Anisocytosis PT INR Sodium 162 H* Potassium 4.0 Chloride 132 H Carbon Dioxide 24 Anion Gap 6.0 BUN 28 H Creatinine 1.15 Est Cr Clr Drug Dosing 38.6 Est GFR ( Amer) 57.8 Est GFR (Non-Af Amer) 49.9 BUN/Creatinine Ratio 24.3 H Glucose 202 H POC Glucose 176 H 228 H Osmolality Calcium 7.7 L Phosphorus Magnesium Total Bilirubin AST ALT Alkaline Phosphatase Ammonia Total Protein Albumin Globulin Albumin/Globulin Ratio Urine Osmolality 11/22/18 11/22/18 11/22/18 12:15 12:16 16:29 WBC RBC Hgb Hct MCV MCH MCHC RDW Std Deviation RDW Coeff of Elbert Plt Count MPV Immature Gran % (Auto) Neut % (Auto) Lymph % (Auto) [place] % (Auto) Eos % (Auto) Baso % (Auto) Immature Gran # (Auto) Neut # (Auto) Lymph # (Auto) [place] # (Auto) Eos # (Auto) Baso # (Auto) Polychromasia Anisocytosis PT INR Sodium 160 H* Potassium 3.8 Chloride 131 H Carbon Dioxide 23 Anion Gap 6.0 BUN 28 H Creatinine 1.09 Est Cr Clr Drug Dosing 40.7 Est GFR ( Amer) 61.7 Est GFR (Non-Af Amer) 53.2 BUN/Creatinine Ratio 25.8 H Glucose 241 H POC Glucose 228 H Osmolality Calcium 7.3 L Phosphorus Magnesium Total Bilirubin AST ALT Alkaline Phosphatase Ammonia 39.6 H Total Protein Albumin Globulin Albumin/Globulin Ratio Urine Osmolality 11/22/18 11/22/18 11/22/18 16:45 18:00 20:39 WBC RBC Hgb Hct MCV MCH MCHC RDW Std Deviation RDW Coeff of Elbert Plt Count MPV Immature Gran % (Auto) Neut % (Auto) Lymph % (Auto) [place] % (Auto) Eos % (Auto) Baso % (Auto) Immature Gran # (Auto) Neut # (Auto) Lymph # (Auto) [place] # (Auto) Eos # (Auto) Baso # (Auto) Polychromasia Anisocytosis PT INR Sodium 159 H* 155 H Potassium 4.2 4.0 Chloride 131 H 128 H Carbon Dioxide 21 22 Anion Gap 7.0 6.0 BUN 26 H 24 H Creatinine 1.05 1.06 Est Cr Clr Drug Dosing 42.3 41.9 Est GFR ( Amer) 64.5 63.8 Est GFR (Non-Af Amer) 55.7 55.1 BUN/Creatinine Ratio 24.9 H 22.4 H Glucose 237 H 221 H POC Glucose Osmolality Calcium 7.3 L 6.9 L Phosphorus Magnesium Total Bilirubin AST ALT Alkaline Phosphatase Ammonia Total Protein Albumin Globulin Albumin/Globulin Ratio Urine Osmolality 814 H 11/22/18 11/22/18 11/22/18 20:48 23:34 23:34 WBC RBC Hgb Hct MCV MCH MCHC RDW Std Deviation RDW Coeff of Elbert Plt Count MPV Immature Gran % (Auto) Neut % (Auto) Lymph % (Auto) [place] % (Auto) Eos % (Auto) Baso % (Auto) Immature Gran # (Auto) Neut # (Auto) Lymph # (Auto) [place] # (Auto) Eos # (Auto) Baso # (Auto) Polychromasia Anisocytosis PT INR Sodium 156 H* Potassium 3.9 Chloride 129 H Carbon Dioxide 24 Anion Gap 4.0 BUN 24 H Creatinine 1.01 Est Cr Clr Drug Dosing 44.0 Est GFR ( Amer) 67.7 Est GFR (Non-Af Amer) 58.4 BUN/Creatinine Ratio 23.4 H Glucose 201 H POC Glucose 243 H Osmolality 330 H Calcium 7.0 L Phosphorus Magnesium Total Bilirubin AST ALT Alkaline Phosphatase Ammonia Total Protein Albumin Globulin Albumin/Globulin Ratio Urine Osmolality 11/23/18 11/23/18 11/23/18 04:00 05:52 05:52 WBC 3.36 L RBC 4.18 L Hgb 11.2 L Hct 37.5 MCV 89.7 MCH 26.8 MCHC 29.9 L RDW Std Deviation 61.7 H RDW Coeff of Elbert 19.3 H Plt Count 62 L MPV 10.4 Immature Gran % (Auto) 0.9 Neut % (Auto) 67.3 Lymph % (Auto) 19.9 [place] % (Auto) 8.9 Eos % (Auto) 2.4 Baso % (Auto) 0.6 Immature Gran # (Auto) 0.03 H Neut # (Auto) 2.26 Lymph # (Auto) 0.67 L [place] # (Auto) 0.30 Eos # (Auto) 0.08 Baso # (Auto) 0.02 Polychromasia 1+ Anisocytosis Present PT INR Sodium 148 H D Potassium 3.8 Chloride 120 H Carbon Dioxide 22 Anion Gap 7.0 BUN 21 H Creatinine 1.14 Est Cr Clr Drug Dosing 39.6 Est GFR ( Amer) 58.4 Est GFR (Non-Af Amer) 50.4 BUN/Creatinine Ratio 18.8 Glucose 274 H POC Glucose 209 H Osmolality Calcium 7.0 L Phosphorus 1.6 L Magnesium Total Bilirubin AST ALT Alkaline Phosphatase Ammonia Total Protein Albumin Globulin Albumin/Globulin Ratio Urine Osmolality 11/23/18 11/23/18 11/23/18 05:52 07:25 09:27 WBC RBC Hgb Hct MCV MCH MCHC RDW Std Deviation RDW Coeff of Elbert Plt Count MPV Immature Gran % (Auto) Neut % (Auto) Lymph % (Auto) [place] % (Auto) Eos % (Auto) Baso % (Auto) Immature Gran # (Auto) Neut # (Auto) Lymph # (Auto) [place] # (Auto) Eos # (Auto) Baso # (Auto) Polychromasia Anisocytosis PT 20.4 H INR 2.1 H Sodium 145 Potassium 3.3 L Chloride 116 H Carbon Dioxide 21 Anion Gap 8.0 BUN 19 H Creatinine 1.04 Est Cr Clr Drug Dosing 43.4 Est GFR ( Amer) 65.3 Est GFR (Non-Af Amer) 56.3 BUN/Creatinine Ratio 18.1 Glucose 222 H POC Glucose 314 H Osmolality Calcium 6.9 L Phosphorus Magnesium Total Bilirubin AST ALT Alkaline Phosphatase Ammonia Total Protein Albumin Globulin Albumin/Globulin Ratio Urine Osmolality
[2018-11-23] MEDS: VANCOMYCIN HCL 1,000 MG in SODIUM CHLORIDE 0.9% 250 ML IV SCH (11:25)
[2018-11-23] MEDS: cefTRIAXone SODIUM 2,000 MG in DEXTROSE 5% 50 ML IV SCH (13:48)
--- NOTE | 2018-11-23 13:50 | Hospitalist Progress Note ---
Date of Service November 23, 2018 Assessment & Plan (1) Metabolic encephalopathy: (2) Hepatic encephalopathy: Likely combination of factors leading to encephapathic state with BERNIE, hypernatremia, Ammonia 57 on admission, repeat 39 Continue lactulose, Xifaxan 550 mg bid Consulted GI (3) Liver failure: INR 2.2 11/22 and 2.1 after 5 of Vit K given. 11/23 20 Vitamin K ordered overnight, will recheck in am. Consulted GI LFTs trending down (4) Cirrhosis, nonalcoholic: Consulted GI Palliative consult (5) Chronic hepatitis C: -Follows with [facility] hepatology as an outpatient, had been on Lasix , Aldactone, lactulose and Xifaxan, h - s/p Harvoni tx in 2014 GI consult (6) Transaminitis: Transaminases wnl (7) Fever: 11/22 - Unclear source. No obvious skin infections or oral lesions. Echo negative for any vegetations. No further fevers (8) Acute urinary retention: -Patient found to have 1 L out of urine after cath upon admission into the ER -Appears to be hematuria, started on ceftriaxone, will continue for now. -CT shows that patient may have recently passed a stone, with large stone burden on the left side. There is also mild hydroureteronephrosis. -UA appears infected but cultures no growth (9) Acute renal failure: Resolved -Creatinine on admission 3.0 and trended down Continue IVF (10) Sacral fracture: -Per ortho, no surgical intervention warranted -Consulted orthopedics - will ask them to see her again given complaints of pelvic/leg numbness and order new CT pelvis -Patient will need pain management prior to discharge, will restart home tramadol as patient is in quite a lot of pain and is more awake today -PT/OT (11) Migraine: -Patient has severe migraine issues, has followed with Dr. 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 -Continue on Effexor and alprazolam (13) Diabetes mellitus with hyperglycemia: A1C is currently 6.3 - Iss with accuchecks achs - blood sugars have been somewhat elevated but should improve now that D5 has been discontinued (14) Osteoporosis: (15) Skin cancer of face: - Status unknown, pt uses tramadol per outpt notes for pain relief and this also adds to migraines. (16) Tobacco use: - no nicotine patch at this time. (17) Hypernatremia: Na 162 11/22 - Free water fluid deficit 2L. Improved with D5 @ 1.35 ml/kg/ hr - 75 ml/hr with Q4h prps - changed to NSS 20 K @100 mls/hr (18) Hypocalcemia: 1g calcium given 11/21 - when corrected for albumin, calcium 9.3 on 11/22 (19) Hypophosphatemia: repeat phos replacement again as phos was 1.6 and recheck am (20) DVT prophylaxis: - teds, scds, no chemical due to hematuria and thrombocytopenia Subjective Ms. Carlin is awake and alert today. She is able to say her name but otherwise is disoriented. Unsure of the veracity of her ROS responses given that she answered "yes" to every question I asked. She was emphatic that her pain is a 15 /10 in her back and hips however and did describe some numbness around her pelvis and down into her legs Review of Systems All systems reviewed & are unremarkable except as noted in HPI & below Physical Exam 2 Vital Signs (Past 24 Hours): Last Vital Signs Temp 36.8 C 11/23/18 12:37 Pulse 78 11/23/18 12:37 Resp 18 11/23/18 12:37 BP 132/75 11/23/18 12:37 Pulse Ox 99 11/23/18 12:37 Physical Exam: General: no distress Eyes: normal inspection, PERLL Respiratory: chest non tender, clear to auscultation, normal breath sounds, no respiratory distress, no accessory muscle use Cardiac: regular rate and rhythm, no rub or gallop, no murmur, no edema, no jvd GI/: active bowel sounds, abdomen tender to palpation, soft, non distended Extremities: normal range of motion, generalized weakness Neuro/Psych: alert and oriented x 1, normal mood and affect Skin: normal color, dry, multiple ulcerations on feet and legs Results & Data Laboratory Results Abnormal lab results 11/22/18 11/22/18 11/22/18 Range/Units 16:29 16:45 18:00 WBC (4.8-10.8) K/uL RBC (4.2-5.4) M/uL Hgb (12.0-16.0) g/dL MCHC (32-36) g/dL RDW Std Deviation (36.4-46.3) fL RDW Coeff of Elbert (11.5-14.5) % Plt Count (130-400) K/uL Immature Gran # (Auto) (0.00-0.02) K/uL Lymph # (Auto) (1.2-3.4) K/uL PT (9.0-12.0) Seconds INR (0.9-1.1) Sodium 159 H* (136-145) mmol/L Potassium (3.5-5.1) mmol/L Chloride 131 H (98-107) mmol/L BUN 26 H (7-18) mg/dl BUN/Creatinine Ratio 24.9 H (10-20) Glucose 237 H (70-99) mg/dl POC Glucose 228 H (70-99) Osmolality (280-300) mOsm/kg Calcium 7.3 L (8.5-10.1) mg/dl Phosphorus (2.5-4.9) mg/dl Urine Osmolality 814 H (500-800) mOsm/kg 11/22/18 11/22/18 11/22/18 Range/Units 20:39 20:48 23:34 WBC (4.8-10.8) K/uL RBC (4.2-5.4) M/uL Hgb (12.0-16.0) g/dL MCHC (32-36) g/dL RDW Std Deviation (36.4-46.3) fL RDW Coeff of Elbert (11.5-14.5) % Plt Count (130-400) K/uL Immature Gran # (Auto) (0.00-0.02) K/uL Lymph # (Auto) (1.2-3.4) K/uL PT (9.0-12.0) Seconds INR (0.9-1.1) Sodium 155 H (136-145) mmol/L Potassium (3.5-5.1) mmol/L Chloride 128 H (98-107) mmol/L BUN 24 H (7-18) mg/dl BUN/Creatinine Ratio 22.4 H (10-20) Glucose 221 H (70-99) mg/dl POC Glucose 243 H (70-99) Osmolality 330 H (280-300) mOsm/kg Calcium 6.9 L (8.5-10.1) mg/dl Phosphorus (2.5-4.9) mg/dl Urine Osmolality (500-800) mOsm/kg 11/22/18 11/23/18 11/23/18 Range/Units 23:34 04:00 05:52 WBC (4.8-10.8) K/uL RBC (4.2-5.4) M/uL Hgb (12.0-16.0) g/dL MCHC (32-36) g/dL RDW Std Deviation (36.4-46.3) fL RDW Coeff of Elbert (11.5-14.5) % Plt Count (130-400) K/uL Immature Gran # (Auto) (0.00-0.02) K/uL Lymph # (Auto) (1.2-3.4) K/uL PT (9.0-12.0) Seconds INR (0.9-1.1) Sodium 156 H* 148 H D (136-145) mmol/L Potassium (3.5-5.1) mmol/L Chloride 129 H 120 H (98-107) mmol/L BUN 24 H 21 H (7-18) mg/dl BUN/Creatinine Ratio 23.4 H (10-20) Glucose 201 H 274 H (70-99) mg/dl POC Glucose 209 H (70-99) Osmolality (280-300) mOsm/kg Calcium 7.0 L 7.0 L (8.5-10.1) mg/dl Phosphorus 1.6 L (2.5-4.9) mg/dl Urine Osmolality (500-800) mOsm/kg 11/23/18 11/23/18 11/23/18 Range/Units 05:52 05:52 07:25 WBC 3.36 L (4.8-10.8) K/uL RBC 4.18 L (4.2-5.4) M/uL Hgb 11.2 L (12.0-16.0) g/dL MCHC 29.9 L (32-36) g/dL RDW Std Deviation 61.7 H (36.4-46.3) fL RDW Coeff of Elbert 19.3 H (11.5-14.5) % Plt Count 62 L (130-400) K/uL Immature Gran # (Auto) 0.03 H (0.00-0.02) K/uL Lymph # (Auto) 0.67 L (1.2-3.4) K/uL PT 20.4 H (9.0-12.0) Seconds INR 2.1 H (0.9-1.1) Sodium (136-145) mmol/L Potassium (3.5-5.1) mmol/L Chloride (98-107) mmol/L BUN (7-18) mg/dl BUN/Creatinine Ratio (10-20) Glucose (70-99) mg/dl POC Glucose 314 H (70-99) Osmolality (280-300) mOsm/kg Calcium (8.5-10.1) mg/dl Phosphorus (2.5-4.9) mg/dl Urine Osmolality (500-800) mOsm/kg 11/23/18 11/23/18 Range/Units 09:27 11:45 WBC (4.8-10.8) K/uL RBC (4.2-5.4) M/uL Hgb (12.0-16.0) g/dL MCHC (32-36) g/dL RDW Std Deviation (36.4-46.3) fL RDW Coeff of Elbert (11.5-14.5) % Plt Count (130-400) K/uL Immature Gran # (Auto) (0.00-0.02) K/uL Lymph # (Auto) (1.2-3.4) K/uL PT (9.0-12.0) Seconds INR (0.9-1.1) Sodium (136-145) mmol/L Potassium 3.3 L (3.5-5.1) mmol/L Chloride 116 H (98-107) mmol/L BUN 19 H (7-18) mg/dl BUN/Creatinine Ratio (10-20) Glucose 222 H (70-99) mg/dl POC Glucose 172 H (70-99) Osmolality (280-300) mOsm/kg Calcium 6.9 L (8.5-10.1) mg/dl Phosphorus (2.5-4.9) mg/dl Urine Osmolality (500-800) mOsm/kg _ (1) Acute renal failure Acute renal failure type: unspecified Qualified Code(s): N17.9 - Acute kidney failure, unspecified (2) Liver failure Hepatic coma status: without hepatic coma Liver failure chronicity: acute Qualified Code(s): K72.00 - Acute and subacute hepatic failure without coma (3) Sacral fracture Encounter type: initial encounter Fracture alignment: Fracture healing: Fracture morphology: unspecified fracture morphology Fracture type: closed Zone of sacrum fracture: Qualified Code(s): S32.10XA - Unspecified fracture of sacrum, initial encounter for closed fracture
[2018-11-23 14:18] LABS: BUN Creatinine Ratio 17.3 (10-20); Calcium 7.1 mg/dl (8.5-10.1); Creatinine Clr Calc Pharmacy 45.1 ml/min; Est GFR (African American) 68.5; Est GFR (Non-African American) 59.1; Potassium 3.4 mmol/L (3.5-5.1)
[2018-11-23 14:41] LABS: INR 2.1 (0.9-1.1); Prothrombin Time 20.4 Seconds (9.0-12.0)
--- NOTE | 2018-11-23 16:08 | Orthopedic Progress Note ---
Date of Service November 23, 2018 Assessment & Plan (1) Tobacco use: (2) Skin cancer of face: (3) Chronic hepatitis C: (4) Transaminitis: (5) Acute renal failure: (6) Acute urinary retention: (7) Liver failure: (8) Dehydration: (9) Sacral fracture: *Above reviewed with Dr Bryant. *Patient overall has shown improvement from motor standpoint and pain. *I havent seen where she was actually ordered PT/OT. Order was placed for bedside PT/OT for gentle ROM (avoid hips). Can work on transfers. She can WB as tolerated only from bed to chair. Otherwise, nonweightbearing. *I recommend a podiatry consult for toe nail care if Medicine agrees. *Will continue to follow. (10) DVT prophylaxis: (11) Cirrhosis, nonalcoholic: Supervising Physician Co-Signing Physician Notes I agree with the above note. I reviewed her CT scan and agree with the radiologist that there has been no interval displacement of her sacral fracture. Subjective Patient seen at bedside. She was alert but not oriented. She was able to respond to questions and commands. When asked where her pain is she states her left buttocks. When asked if she has leg pain she says her left more so than right. She says she has not been out of bed yet. She says she would like to walk. She says her feet are numb bilaterally. Physical Exam 2 Vital Signs (Past 24 Hours): Last Vital Signs Temp 36.7 C 11/23/18 15:06 Pulse 79 11/23/18 15:06 Resp 18 11/23/18 15:06 BP 111/67 11/23/18 15:06 Pulse Ox 98 11/23/18 15:06 Physical Exam: Patient in bed supine with B foot pumps on and pillow underneath knees. She has multiple skin tears in different phases of healing to her extremities. Her toe nails are overgrown and in poor condition. She has painless log rolling to right leg. Log rolling to left leg causes left buttock/groin pain. She was able to tolerate gentle ROM of her knees without pain stating it "felt good". On command she was able to plantar and dorsiflex her feet bilaterally. Left EHL/TA/gastroc weaker than right. But overall improvement. Has altered sensation to B LE below the knees which worsens distally. No feeling to deep or light touch or pain stimuli to general feet dorsal and plantar. Palpable pulses to B LE. Negative homans. No pitting edema. Pain diffusely to left LE with SLR. Neg on the right. Results & Data Laboratory Results 11/23/18 11/23/18 11/23/18 Range/Units 14:15 13:20 13:20 WBC (4.8-10.8) K/uL RBC (4.2-5.4) M/uL Hgb (12.0-16.0) g/dL Hct (37-47) % MCV (80-100) fL MCH (25-34) pg MCHC (32-36) g/dL RDW Std Deviation (36.4-46.3) fL RDW Coeff of Elbert (11.5-14.5) % Plt Count (130-400) K/uL MPV (7.4-10.4) fL Immature Gran % (Auto) % Neut % (Auto) % Lymph % (Auto) % [place] % (Auto) % Eos % (Auto) % Baso % (Auto) % Immature Gran # (Auto) (0.00-0.02) K/uL Neut # (Auto) (1.4-6.5) K/uL Lymph # (Auto) (1.2-3.4) K/uL [place] # (Auto) (0.11-0.59) K/uL Eos # (Auto) (0-0.5) K/uL Baso # (Auto) (0-0.2) K/uL Polychromasia Anisocytosis PT 20.4 H (9.0-12.0) Seconds INR 2.1 H (0.9-1.1) Sodium 145 (136-145) mmol/L Potassium 3.4 L (3.5-5.1) mmol/L Chloride 116 H (98-107) mmol/L Carbon Dioxide 20 L (21-32) mmol/L Anion Gap 8.0 (3-11) BUN 17 (7-18) mg/dl Creatinine 1.00 (0.6-1.2) mg/dl Est Cr Clr Drug Dosing 45.1 ml/min Est GFR ( Amer) 68.5 Est GFR (Non-Af Amer) 59.1 BUN/Creatinine Ratio 17.3 (10-20) Glucose 160 H (70-99) mg/dl POC Glucose (70-99) Osmolality (280-300) mOsm/kg Calcium 7.1 L (8.5-10.1) mg/dl Phosphorus (2.5-4.9) mg/dl Urine Osmolality (500-800) mOsm/kg HCV RNA (PCR) IUs/ml Pending HCV RNA PCR log IUs/ml Pending 11/23/18 11/23/18 11/23/18 Range/Units 11:45 09:27 07:25 WBC (4.8-10.8) K/uL RBC (4.2-5.4) M/uL Hgb (12.0-16.0) g/dL Hct (37-47) % MCV (80-100) fL MCH (25-34) pg MCHC (32-36) g/dL RDW Std Deviation (36.4-46.3) fL RDW Coeff of Elbert (11.5-14.5) % Plt Count (130-400) K/uL MPV (7.4-10.4) fL Immature Gran % (Auto) % Neut % (Auto) % Lymph % (Auto) % [place] % (Auto) % Eos % (Auto) % Baso % (Auto) % Immature Gran # (Auto) (0.00-0.02) K/uL Neut # (Auto) (1.4-6.5) K/uL Lymph # (Auto) (1.2-3.4) K/uL [place] # (Auto) (0.11-0.59) K/uL Eos # (Auto) (0-0.5) K/uL Baso # (Auto) (0-0.2) K/uL Polychromasia Anisocytosis PT (9.0-12.0) Seconds INR (0.9-1.1) Sodium 145 (136-145) mmol/L Potassium 3.3 L (3.5-5.1) mmol/L Chloride 116 H (98-107) mmol/L Carbon Dioxide 21 (21-32) mmol/L Anion Gap 8.0 (3-11) BUN 19 H (7-18) mg/dl Creatinine 1.04 (0.6-1.2) mg/dl Est Cr Clr Drug Dosing 43.4 ml/min Est GFR ( Amer) 65.3 Est GFR (Non-Af Amer) 56.3 BUN/Creatinine Ratio 18.1 (10-20) Glucose 222 H (70-99) mg/dl POC Glucose 172 H 314 H (70-99) Osmolality (280-300) mOsm/kg Calcium 6.9 L (8.5-10.1) mg/dl Phosphorus (2.5-4.9) mg/dl Urine Osmolality (500-800) mOsm/kg HCV RNA (PCR) IUs/ml HCV RNA PCR log IUs/ml 11/23/18 11/23/18 11/23/18 Range/Units 05:52 05:52 05:52 WBC 3.36 L (4.8-10.8) K/uL RBC 4.18 L (4.2-5.4) M/uL Hgb 11.2 L (12.0-16.0) g/dL Hct 37.5 (37-47) % MCV 89.7 (80-100) fL MCH 26.8 (25-34) pg MCHC 29.9 L (32-36) g/dL RDW Std Deviation 61.7 H (36.4-46.3) fL RDW Coeff of Elbert 19.3 H (11.5-14.5) % Plt Count 62 L (130-400) K/uL MPV 10.4 (7.4-10.4) fL Immature Gran % (Auto) 0.9 % Neut % (Auto) 67.3 % Lymph % (Auto) 19.9 % [place] % (Auto) 8.9 % Eos % (Auto) 2.4 % Baso % (Auto) 0.6 % Immature Gran # (Auto) 0.03 H (0.00-0.02) K/uL Neut # (Auto) 2.26 (1.4-6.5) K/uL Lymph # (Auto) 0.67 L (1.2-3.4) K/uL [place] # (Auto) 0.30 (0.11-0.59) K/uL Eos # (Auto) 0.08 (0-0.5) K/uL Baso # (Auto) 0.02 (0-0.2) K/uL Polychromasia 1+ Anisocytosis Present PT 20.4 H (9.0-12.0) Seconds INR 2.1 H (0.9-1.1) Sodium 148 H D (136-145) mmol/L Potassium 3.8 (3.5-5.1) mmol/L Chloride 120 H (98-107) mmol/L Carbon Dioxide 22 (21-32) mmol/L Anion Gap 7.0 (3-11) BUN 21 H (7-18) mg/dl Creatinine 1.14 (0.6-1.2) mg/dl Est Cr Clr Drug Dosing 39.6 ml/min Est GFR ( Amer) 58.4 Est GFR (Non-Af Amer) 50.4 BUN/Creatinine Ratio 18.8 (10-20) Glucose 274 H (70-99) mg/dl POC Glucose (70-99) Osmolality (280-300) mOsm/kg Calcium 7.0 L (8.5-10.1) mg/dl Phosphorus 1.6 L (2.5-4.9) mg/dl Urine Osmolality (500-800) mOsm/kg HCV RNA (PCR) IUs/ml HCV RNA PCR log IUs/ml 11/23/18 11/22/18 11/22/18 Range/Units 04:00 23:34 23:34 WBC (4.8-10.8) K/uL RBC (4.2-5.4) M/uL Hgb (12.0-16.0) g/dL Hct (37-47) % MCV (80-100) fL MCH (25-34) pg MCHC (32-36) g/dL RDW Std Deviation (36.4-46.3) fL RDW Coeff of Elbert (11.5-14.5) % Plt Count (130-400) K/uL MPV (7.4-10.4) fL Immature Gran % (Auto) % Neut % (Auto) % Lymph % (Auto) % [place] % (Auto) % Eos % (Auto) % Baso % (Auto) % Immature Gran # (Auto) (0.00-0.02) K/uL Neut # (Auto) (1.4-6.5) K/uL Lymph # (Auto) (1.2-3.4) K/uL [place] # (Auto) (0.11-0.59) K/uL Eos # (Auto) (0-0.5) K/uL Baso # (Auto) (0-0.2) K/uL Polychromasia Anisocytosis PT (9.0-12.0) Seconds INR (0.9-1.1) Sodium 156 H* (136-145) mmol/L Potassium 3.9 (3.5-5.1) mmol/L Chloride 129 H (98-107) mmol/L Carbon Dioxide 24 (21-32) mmol/L Anion Gap 4.0 (3-11) BUN 24 H (7-18) mg/dl Creatinine 1.01 (0.6-1.2) mg/dl Est Cr Clr Drug Dosing 44.0 ml/min Est GFR ( Amer) 67.7 Est GFR (Non-Af Amer) 58.4 BUN/Creatinine Ratio 23.4 H (10-20) Glucose 201 H (70-99) mg/dl POC Glucose 209 H (70-99) Osmolality 330 H (280-300) mOsm/kg Calcium 7.0 L (8.5-10.1) mg/dl Phosphorus (2.5-4.9) mg/dl Urine Osmolality (500-800) mOsm/kg HCV RNA (PCR) IUs/ml HCV RNA PCR log IUs/ml 11/22/18 11/22/18 11/22/18 Range/Units 20:48 20:39 18:00 WBC (4.8-10.8) K/uL RBC (4.2-5.4) M/uL Hgb (12.0-16.0) g/dL Hct (37-47) % MCV (80-100) fL MCH (25-34) pg MCHC (32-36) g/dL RDW Std Deviation (36.4-46.3) fL RDW Coeff of Elbert (11.5-14.5) % Plt Count (130-400) K/uL MPV (7.4-10.4) fL Immature Gran % (Auto) % Neut % (Auto) % Lymph % (Auto) % [place] % (Auto) % Eos % (Auto) % Baso % (Auto) % Immature Gran # (Auto) (0.00-0.02) K/uL Neut # (Auto) (1.4-6.5) K/uL Lymph # (Auto) (1.2-3.4) K/uL [place] # (Auto) (0.11-0.59) K/uL Eos # (Auto) (0-0.5) K/uL Baso # (Auto) (0-0.2) K/uL Polychromasia Anisocytosis PT (9.0-12.0) Seconds INR (0.9-1.1) Sodium 155 H (136-145) mmol/L Potassium 4.0 (3.5-5.1) mmol/L Chloride 128 H (98-107) mmol/L Carbon Dioxide 22 (21-32) mmol/L Anion Gap 6.0 (3-11) BUN 24 H (7-18) mg/dl Creatinine 1.06 (0.6-1.2) mg/dl Est Cr Clr Drug Dosing 41.9 ml/min Est GFR ( Amer) 63.8 Est GFR (Non-Af Amer) 55.1 BUN/Creatinine Ratio 22.4 H (10-20) Glucose 221 H (70-99) mg/dl POC Glucose 243 H (70-99) Osmolality (280-300) mOsm/kg Calcium 6.9 L (8.5-10.1) mg/dl Phosphorus (2.5-4.9) mg/dl Urine Osmolality 814 H (500-800) mOsm/kg HCV RNA (PCR) IUs/ml HCV RNA PCR log IUs/ml 11/22/18 11/22/18 Range/Units 16:45 16:29 WBC (4.8-10.8) K/uL RBC (4.2-5.4) M/uL Hgb (12.0-16.0) g/dL Hct (37-47) % MCV (80-100) fL MCH (25-34) pg MCHC (32-36) g/dL RDW Std Deviation (36.4-46.3) fL RDW Coeff of Elbert (11.5-14.5) % Plt Count (130-400) K/uL MPV (7.4-10.4) fL Immature Gran % (Auto) % Neut % (Auto) % Lymph % (Auto) % [place] % (Auto) % Eos % (Auto) % Baso % (Auto) % Immature Gran # (Auto) (0.00-0.02) K/uL Neut # (Auto) (1.4-6.5) K/uL Lymph # (Auto) (1.2-3.4) K/uL [place] # (Auto) (0.11-0.59) K/uL Eos # (Auto) (0-0.5) K/uL Baso # (Auto) (0-0.2) K/uL Polychromasia Anisocytosis PT (9.0-12.0) Seconds INR (0.9-1.1) Sodium 159 H* (136-145) mmol/L Potassium 4.2 (3.5-5.1) mmol/L Chloride 131 H (98-107) mmol/L Carbon Dioxide 21 (21-32) mmol/L Anion Gap 7.0 (3-11) BUN 26 H (7-18) mg/dl Creatinine 1.05 (0.6-1.2) mg/dl Est Cr Clr Drug Dosing 42.3 ml/min Est GFR ( Amer) 64.5 Est GFR (Non-Af Amer) 55.7 BUN/Creatinine Ratio 24.9 H (10-20) Glucose 237 H (70-99) mg/dl POC Glucose 228 H (70-99) Osmolality (280-300) mOsm/kg Calcium 7.3 L (8.5-10.1) mg/dl Phosphorus (2.5-4.9) mg/dl Urine Osmolality (500-800) mOsm/kg HCV RNA (PCR) IUs/ml HCV RNA PCR log IUs/ml Diagnostic Findings Repeat CT scan of Pelvis ordered by Medicine. As of yet, not completed. _ (1) Acute renal failure Acute renal failure type: unspecified Qualified Code(s): N17.9 - Acute kidney failure, unspecified (2) Liver failure Hepatic coma status: without hepatic coma Liver failure chronicity: acute Qualified Code(s): K72.00 - Acute and subacute hepatic failure without coma (3) Sacral fracture Encounter type: initial encounter Fracture alignment: Fracture healing: Fracture morphology: unspecified fracture morphology Fracture type: closed Zone of sacrum fracture: Qualified Code(s): S32.10XA - Unspecified fracture of sacrum, initial encounter for closed fracture
[2018-11-23] MEDS: BACITRACIN OINT 15 GM TUBE EXT SCH (18:32)
--- NOTE | 2018-11-23 18:33 | CT Scan Report ---
CT pelvis wo con HISTORY: 63 years-old Female groin numbness following pelvic fracture acute bilateral groin pain an d numbness with sacral fractures. COMPARISON: CT abdomen and pelvis November 19, 2018, and also 07/31/2018 TECHNIQUE: Multiple axial CT images of the pelvis were obtained without the use of IV contrast. A dos e lowering technique was used consistent with the principals of CEDRICK. FINDINGS: Fluid-filled loops of large and small bowel noted about the pelvis. Nonobstructive bowel gas pattern. Mild nonspecific lower mesenteric edema. Appendix not definitively seen. Calcification of the aorta and iliac arteries. Decompressed bladder with Woodruff catheter in place. Moderate amount of air noted w ithin the urinary bladder lumen, possibly from instrumentation. Tiny fat filled periumbilical hernia. Moderate generalized body wall edema. Partially imaged kyphoplasty changes at L3. Remote compression deformities at L3, L4 and L5. Deminera lized appearance of the bones. Acute appearing comminuted bilateral sacral alar fractures with fractu res involving the S1 and S2 levels. 6 mm impaction with 8 mm anterior displacement of the mid S2 frac ture, best seen on the sagittal images which is unchanged from study dated November 19, 2017. No additi onal acute fracture or dislocation. Chondrocalcinosis about the pubic senses. Intratrochanteric nail with medullary lindsey about the left femur. 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 Remote fracture the left inferior pubic ramus. IMPRESSION: 1. Acute comminuted sacral fractures with mild impaction and displacement as above. 2. Demineralized appearance of the bones with unchanged compression deformities of the lower lumbar s pine. 3. Additional findings as above. The above report was generated using voice recognition software. It may contain grammatical, syntax o r spelling errors. Electronically signed by: Ángel Alexander M.D. 11/23/2018 6:31 PM
[2018-11-23] MEDS: TRAMADOL HCL 50 MG TABLET PO PRN (18:38)
[2018-11-23] MEDS: NSS + 20MEQ KCL 20 MEQ/1,000 ML BAG IV SCH (20:11)
[2018-11-23 21:19] LABS: BUN Creatinine Ratio 16.6 (10-20); Creatinine Clr Calc Pharmacy 50.7 ml/min; Est GFR (African American) 78.8; Potassium 4.1 mmol/L (3.5-5.1)
[2018-11-24] MEDS ORDERED: TEMAZEPAM 15 MG CAPSULE PO PRN (00:15)
[2018-11-24] MEDS: NSS + 20MEQ KCL 20 MEQ/1,000 ML BAG IV SCH ×2 (00:33→11:07)
[2018-11-24] MEDS: LACTULOSE SYRUP 30 GM/45 ML UDP PO SCH ×3 (05:52→21:14)
[2018-11-24 07:54] LABS: Hematocrit (blood only) 33.2 % (37-47); Hemoglobin 10.7 g/dL (12.0-16.0); Mean Corpuscular Hgb Conc 32.2 g/dL (32-36); RDW Coefficient of Variation 18.6 % (11.5-14.5); RDW Standard Deviation 56.1 fL (36.4-46.3); Red Blood Count 3.86 M/uL (4.2-5.4); White Blood Count 3.91 K/uL (4.8-10.8)
[2018-11-24] MEDS: TRAMADOL HCL 50 MG TABLET PO PRN ×2 (08:14→19:51)
[2018-11-24] MEDS: RIFAXIMIN 550 MG TABLET PO SCH ×2 (08:15→19:48)
[2018-11-24] MEDS: VENLAFAXINE HCL XR 150 MG CAPXR PO SCH (08:15)
[2018-11-24] MEDS: SPIRONOLACTONE 25 MG TAB PO SCH (08:15)
[2018-11-24] MEDS: cloNIDine HCl 0.1 MG TAB PO SCH ×2 (08:16→19:48)
[2018-11-24] MEDS: PANTOprazole 40 MG TAB PO SCH ×2 (08:16→19:48)
[2018-11-24] MEDS: CHOLESTYRAMINE LIGHT 4 GM PKT PO SCH (08:16)
[2018-11-24] MEDS: INSULIN GLARGINE SOLOSTAR 100 UNITS/ML 3 ML PEN SC SCH (08:16)
[2018-11-24] MEDS: INSULIN ASPART 100 UNITS/ML 3 ML PEN SC SCH ×4 (08:17→21:57)
[2018-11-24 08:25] LABS: BUN Creatinine Ratio 12.9 (10-20); Calcium 7.2 mg/dl (8.5-10.1); Creatinine Clr Calc Pharmacy 51.9 ml/min; Est GFR (African American) 78.8
[2018-11-24 08:29] LABS: Mean Platelet Volume 11.3 fL (7.4-10.4); Platelet Count 60 K/uL (130-400)
[2018-11-24 08:39] LABS: Basophils # (auto) 0.02 K/uL (0-0.2); Basophils % (auto) 0.5 %; Echinocytes 1+; Eosinophils % (auto) 2.6 %; Immature Granulocytes # (auto) 0.04 K/uL (0.00-0.02); Lymphocytes # (auto) 0.79 K/uL (1.2-3.4); Lymphocytes % (auto) 20.2 %; Monocytes # (auto) 0.42 K/uL (0.11-0.59); Monocytes % (auto) 10.7 %; Neutrophils # (auto) 2.54 K/uL (1.4-6.5)
[2018-11-24] MEDS: LIDOCAINE 5% 1 PATCH TD SCH (08:56)
[2018-11-24 08:58] LABS: INR 1.9 (0.9-1.1); Prothrombin Time 18.3 Seconds (9.0-12.0)
--- NOTE | 2018-11-24 10:11 | Orthopedic Progress Note ---
Date of Service November 24, 2018 Assessment & Plan (1) Sacral fracture: CT scan report noted. No new findings. Does not appear that she is on any mechanical or additional DVT prophylaxis. Although there are LIZET stockings and SCD palms ordered.May consider getting a venous ultrasound of her right lower extremity to rule out DVT as she has been bedridden the last 5 days. I will leave that up to medicine further evaluation as her pain does seem to be very intermittent and sporadic today. Notified nursing. *Above reviewed with Dr Bryant, Further recommendations per Dr. Bryant. *Patient overall has shown improvement from motor standpoint and pain. Recommend bedside PT/OT for gentle ROM (avoid hips). Can work on transfers. She can WB as tolerated only for transfers from bed to chair. Otherwise, nonweightbearing. *I recommend a podiatry consult for toe nail care if Medicine agrees. Follow when necessary. She will need outpatient follow-up with Dr. Bryant and approximate 2-4 weeks. Please call [phone] with questions anterior schedule follow-up appointment. Subjective Patient lying in bed. Patient had PT today, was able to sit at side of bed for a few seconds. Hasn't been out of bed. Complaining of pain in both legs. Physical Exam 2 Vital Signs (Past 24 Hours): Last Vital Signs Temp 36.6 C 11/24/18 06:45 Pulse 89 11/24/18 06:45 Resp 20 11/24/18 06:45 BP 103/57 L 11/24/18 06:45 Pulse Ox 100 11/24/18 06:45 Physical Exam: Patient lying in bed. IV and right foot as she pulled out the on in her hand yesterday. She is able to dorsiflexBilaterally. She does have a trace amount of weakness in the left foot as compared to the right with dorsiflexion and plantarflexion. Left foot is warm. Dorsalis pedis pulses 1+. Right foot feels cold today. Weak dorsalis pedis pulse. IV on the dorsum of her right foot. She tolerates ankle range of motion. She has decreased sensation which is equal bilaterally up to about her shins. She has some intermittent right calf pain with palpation today. She has bilateral knee effusions but nontender to palpation. She has no left calf tenderness. She is unable in apparent straight leg raise or even attempt to try today. She tolerates gentle logrolling of both of her hips. There is no visible ecchymosis on either extremity. She has no significant distal edema of either extremity. She has some mild pain with palpation the popliteal fossa of her right knee. She is nontender of her sacrum from what I can palpate today. Results & Data Diagnostic Findings CT pelvis wo con HISTORY: 63 years-old Female groin numbness following pelvic fracture acute bilateral groin pain and numbness with sacral fractures. COMPARISON: CT abdomen and pelvis November 19, 2018, and also 07/31/2018 TECHNIQUE: Multiple axial CT images of the pelvis were obtained without the use of IV contrast. A dose lowering technique was used consistent with the principals of ALARA. FINDINGS: Fluid-filled loops of large and small bowel noted about the pelvis. Nonobstructive bowel gas pattern. Mild nonspecific lower mesenteric edema. Appendix not definitively seen. Calcification of the aorta and iliac arteries. Decompressed bladder with Woodruff catheter in place. Moderate amount of air noted within the urinary bladder lumen, possibly from instrumentation. Tiny fat filled periumbilical hernia. Moderate generalized body wall edema. Partially imaged kyphoplasty changes at L3. Remote compression deformities at L3 , L4 and L5. Demineralized appearance of the bones. Acute appearing comminuted bilateral sacral alar fractures with fractures involving the S1 and S2 levels. 6 mm impaction with 8 mm anterior displacement of the mid S2 fracture, best seen on the sagittal images which is unchanged from study dated November 19, 2017. No additional acute fracture or dislocation. Chondrocalcinosis about the pubic senses. Intratrochanteric nail with medullary lindsey about the left femur. Osteoarthritis about the bilateral femoral acetabular joints. Remote fracture the left inferior pubic ramus. IMPRESSION: 1. Acute comminuted sacral fractures with mild impaction and displacement as above. 2. Demineralized appearance of the bones with unchanged compression deformities of the lower lumbar spine. 3. Additional findings as above. _ (1) Sacral fracture Encounter type: initial encounter Fracture alignment: Fracture healing: Fracture morphology: unspecified fracture morphology Fracture type: closed Zone of sacrum fracture: Qualified Code(s): S32.10XA - Unspecified fracture of sacrum, initial encounter for closed fracture
[2018-11-24] MEDS: VANCOMYCIN HCL 1,000 MG in SODIUM CHLORIDE 0.9% 250 ML IV SCH (11:07)
[2018-11-24] MEDS: MoRPHine SULFATE 2 MG/ML CARP IV PRN ×3 (12:35→23:53)
[2018-11-24] MEDS: cefTRIAXone SODIUM 2,000 MG in DEXTROSE 5% 50 ML IV SCH (14:38)
--- NOTE | 2018-11-24 14:56 | Palliative Care Progress Note ---
Date of Service November 24, 2018 Assessment & Plan (1) Palliative care encounter: -This is a 63 year old female who was transferred to the [facility] via EMS after being found down at home by a caregiver. Patient has a Past Medical History of non-alcoholic liver cirrhosis. chronic hepatitis C, s/p Harvoni tx in 2015, invasive skin cancer, poorly controlled DM2, COPD, hx of tobacco abuse , epilepsy, per caregiver has not experienced a seizure in over 8 years, migraines, osteoporosis, thrombocytopenia, anxiety, and depression. The patient' s LFT's were found to be elevated, she was found to have urinary retention and pelvic fractures which are suspected to be from her fall. EEG shows encephalopathy. -Liver disease not decompensated, but is stable. INR is elevated, indicative of severe disease, but ammonia level came down and LFTs are not worsening. Kidney function is normal. -Patient's caregiver Kiah brought in POLST form. The POLST form was not dated or signed by a provider, so it is not valid. It did have the patient's signature on it, and the following choices: full code, full treatment, abx if life can be prolonged, long-term artificial hydration/nutrition. -Since there is no legal decision maker, continue with full code and full treatment. -Uncertain etiology of confusion/encephalopathy. Likely multifactorial. -Confusion continues. Did note that patient has psychiatric history, psych has been consulted in the past for depression, anxiety, and opioid withdrawal. Psychiatric case supervisor saw patient in July-- patient reported history of MDD, PTSD and agoraphobia. -Patient's caregiver agreed patient will need to go SNF for 24/7 care. She is not safe to go home. With psychiatric history and current confusion, patient will likely need to go through [employer] process. senior manager mmcoe will start this process. -Psych consult may be in order to help determine cause of patient's behaviors, as she remains a 1:1 at this time. She continues to pull IVs out, taking off heart monitor, etc. I did note that back in July patient reported hallucinations, which the caregiver confirmed. -Would involve office of aging (they will be involved with [employer] process anyway ). If patient's mentation improves at any point, would have her complete a medical POA. (2) Seizure disorder: -Managed by Hospitalists and Neurology -Per caregiver, patient has not had a seizure in over 8 years. -She is on Keppra, but no seizure activity has been noted since admission -Neurology was consulted and an EEG was ordered. EEG shows no seizure but does show encephalopathy. (3) Cirrhosis, nonalcoholic: -Managed by GI and Hospitalists -GI consulted. Per review, patient has not been to f/u since 2013. -Patient with cirrhosis and completion of Harvoni treatment in 2014. -Recent Ammonia level 39. -No decompensated at this time. -Elevated INR. -NO ascites on abdominal ultrasound. -GI has signed off. (4) Acute urinary retention: -Managed by Hospitalists -Patient with urinary retention upon admission. -Woodruff catheter placed and patient tolerating -Patient being treated for UTI with Ceftriaxone 2G IV daily (5) Sacral fracture: -Managed by Hospitalists and Ortho -Ortho consulted upon admission -Pelvic fracture sustained presumably from fall at home. -Recommendations were conservative measures with NWB B/L LE, not a surgical candidate -Patient was receiving Tramadol for pain. History of opioid abuse. (6) Dehydration: -Managed by Hospitalists Subjective Patient confused, is a 1:1 for safety. Pulling tubes and lines. Pulled multiple IVs out. Met with patient's caregiver of 8 yearsKiah. See A&P. Respiratory: no cough and no dyspnea Cardiovascular: no chest pain and no edema Gastrointestinal: no abdominal pain, no nausea and no vomiting Physical Exam 2 Vital Signs (Past 24 Hours): Last Vital Signs Temp 36.7 C 11/24/18 11:20 Pulse 85 11/24/18 11:20 Resp 20 11/24/18 11:20 BP 125/76 11/24/18 11:20 Pulse Ox 98 11/24/18 11:20 Constitutional: + ill appearing and + physical limitations; no acute distress and + not healthy appearing ENMT: Ears: no hearing impairment Neck: normal visual inspection and trachea midline Respiratory: refused lung assessment Cardiovascular: Rate/Rhythm: regular rate and regular rhythm (on telemetry) Gastrointestinal (Abdomen): refused abdominal assessment Skin: toe nails long, curling under toes growing into skin. patient refused podiatry consult. Neurologic: awake and + confused Psychiatric: Orientation: alert and oriented to person Apperance: + disheveled Eye Contact: good eye contact Time Spent Midlevel 35 minutes with >50% of time spent at bedside with patient and caregiver discussing her condition and goals of care. _ (1) Sacral fracture Encounter type: initial encounter Fracture alignment: Fracture healing: Fracture morphology: unspecified fracture morphology Fracture type: closed Zone of sacrum fracture: Qualified Code(s): S32.10XA - Unspecified fracture of sacrum, initial encounter for closed fracture
--- NOTE | 2018-11-24 16:31 | Hospitalist Progress Note ---
Date of Service November 24, 2018 Assessment & Plan (1) Metabolic encephalopathy: (2) Hepatic encephalopathy: Improved - Likely combination of factors leading to encephalopathic state with BERNIE, hypernatremia, Ammonia 57 on admission, repeat 39 Continue lactulose, Xifaxan 550 mg bid Consulted GI (3) Liver failure: INR 2.2 11/22, 11/23 20 Vitamin K ordered overnight - 1.9 11/24 Consulted GI LFTs trending down (4) Cirrhosis, nonalcoholic: Consulted GI Palliative consult (5) Chronic hepatitis C: -Follows with [facility] hepatology as an outpatient, had been on Lasix , Aldactone, lactulose and Xifaxan, - s/p Harvoni tx in 2014 GI consult (6) Transaminitis: Transaminases wnl (7) Fever: 11/22 - Unclear source. No obvious skin infections or oral lesions. Echo negative for any vegetations. No further fevers. Initial blood cultures were positive for coag negative staph in both vials, resistant to oxacillin. The following day, 11/20 blood cultures were negative despite lack of antibiotics that would cover MRSA. 11/22 BC no growth after 48 hours. Vancomycin started 11/22 and will change to doxycycline po. Ceftriaxone given x 5 days and discontinued. No further fevers (8) Acute urinary retention: -Patient found to have 1 L out of urine after cath upon admission into the ER with hematuria -CT shows that patient may have recently passed a stone, with large stone burden on the left side. There is also mild hydroureteronephrosis. -UA appears infected but cultures no growth - Rocephin discontinued after administration x5 days (9) Acute renal failure: Resolved -Creatinine on admission 3.0 and trended down Discontinue IVF as patient taking po (10) Sacral fracture: -Per ortho, no surgical intervention warranted -restarted home tramadol and added prn morphine q4h as patient is in quite a lot of pain. Given that she has a history of opioid overdose and encephalopathy will monitor carefully but with bilateral sacral fractures her pain needs to be adequately addressed -PT/OT - will doppler leg per ortho suggestion though DVT is less likely given INR of around 2 since admission (11) Migraine: -Patient has severe migraine issues, has followed with Dr. 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 -Continue on Effexor and alprazolam (13) Diabetes mellitus with hyperglycemia: A1C is currently 6.3 - Iss with accuchecks achs - blood sugars are continuing to run upper 100s-200. Will tighten short acting insulin. (14) Osteoporosis: (15) Skin cancer of face: - Status unknown, pt uses tramadol per outpt notes for pain relief and this also adds to migraines. (16) Tobacco use: - no nicotine patch at this time. (17) Hypernatremia: Na 162 11/22 - now resolved. DC fluids as patient is taking adequate po and is positive 2L (18) Hypocalcemia: 1g calcium given 11/21 - when corrected for albumin, calcium 9.3 on 11/22 (19) Hypophosphatemia: phos replaced x3 - recheck am (20) DVT prophylaxis: - teds, scds, no chemical prophylaxis due to hematuria, thrombocytopenia, and elevated INR Subjective Ms. Carlin is awake and alert but oriented only to self. She continues to have quite a lot of back pain. Review of Systems All systems reviewed & are unremarkable except as noted in HPI & below Physical Exam 2 Vital Signs (Past 24 Hours): Last Vital Signs Temp 36.7 C 11/24/18 15:04 Pulse 91 H 11/24/18 15:04 Resp 20 11/24/18 15:04 BP 131/53 L 11/24/18 15:04 Pulse Ox 97 11/24/18 15:04 Physical Exam: General: no distress Eyes: normal inspection, PERLL Respiratory: chest non tender, clear to auscultation, normal breath sounds, no respiratory distress, no accessory muscle use Cardiac: regular rate and rhythm, no rub or gallop, no murmur, no edema, no jvd GI/: active bowel sounds, abdomen tender, soft, non distended Extremities: normal range of motion, normal strength, non tender Neuro/Psych: alert and oriented to self, normal mood and affect Skin: normal color, dry, Results & Data Laboratory Results Abnormal lab results 11/23/18 11/23/18 11/24/18 Range/Units 20:02 20:35 07:10 WBC (4.8-10.8) K/uL RBC (4.2-5.4) M/uL Hgb (12.0-16.0) g/dL Hct (37-47) % RDW Std Deviation (36.4-46.3) fL RDW Coeff of Elbert (11.5-14.5) % Plt Count (130-400) K/uL MPV (7.4-10.4) fL Immature Gran # (Auto) (0.00-0.02) K/uL Lymph # (Auto) (1.2-3.4) K/uL PT (9.0-12.0) Seconds INR (0.9-1.1) Chloride 117 H (98-107) mmol/L Carbon Dioxide 19 L (21-32) mmol/L Glucose 184 H (70-99) mg/dl POC Glucose 200 H 131 H (70-99) Calcium 7.0 L (8.5-10.1) mg/dl 11/24/18 11/24/18 11/24/18 Range/Units 07:44 07:44 07:44 WBC 3.91 L (4.8-10.8) K/uL RBC 3.86 L (4.2-5.4) M/uL Hgb 10.7 L (12.0-16.0) g/dL Hct 33.2 L (37-47) % RDW Std Deviation 56.1 H (36.4-46.3) fL RDW Coeff of Elbert 18.6 H (11.5-14.5) % Plt Count 60 L (130-400) K/uL MPV 11.3 H (7.4-10.4) fL Immature Gran # (Auto) 0.04 H (0.00-0.02) K/uL Lymph # (Auto) 0.79 L (1.2-3.4) K/uL PT 18.3 H (9.0-12.0) Seconds INR 1.9 H (0.9-1.1) Chloride 114 H (98-107) mmol/L Carbon Dioxide (21-32) mmol/L Glucose 159 H (70-99) mg/dl POC Glucose (70-99) Calcium 7.2 L (8.5-10.1) mg/dl 11/24/18 Range/Units 11:30 WBC (4.8-10.8) K/uL RBC (4.2-5.4) M/uL Hgb (12.0-16.0) g/dL Hct (37-47) % RDW Std Deviation (36.4-46.3) fL RDW Coeff of Elbert (11.5-14.5) % Plt Count (130-400) K/uL MPV (7.4-10.4) fL Immature Gran # (Auto) (0.00-0.02) K/uL Lymph # (Auto) (1.2-3.4) K/uL PT (9.0-12.0) Seconds INR (0.9-1.1) Chloride (98-107) mmol/L Carbon Dioxide (21-32) mmol/L Glucose (70-99) mg/dl POC Glucose 149 H (70-99) Calcium (8.5-10.1) mg/dl _ (1) Liver failure Hepatic coma status: without hepatic coma Liver failure chronicity: acute Qualified Code(s): K72.00 - Acute and subacute hepatic failure without coma (2) Acute renal failure Acute renal failure type: unspecified Qualified Code(s): N17.9 - Acute kidney failure, unspecified (3) Sacral fracture Encounter type: initial encounter Fracture alignment: Fracture healing: Fracture morphology: unspecified fracture morphology Fracture type: closed Zone of sacrum fracture: Qualified Code(s): S32.10XA - Unspecified fracture of sacrum, initial encounter for closed fracture
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
[2018-11-24] MEDS: BACITRACIN OINT 15 GM TUBE EXT SCH (18:25)
[2018-11-24] MEDS: DOXYCYCLINE HYCLATE 100 MG CAP PO SCH (19:48)
[2018-11-25] MEDS: LACTULOSE SYRUP 30 GM/45 ML UDP PO SCH ×3 (05:55→20:26)
[2018-11-25] MEDS: MoRPHine SULFATE 2 MG/ML CARP IV PRN (05:55)
[2018-11-25 06:50] LABS: Mean Corpuscular Hgb Conc 32.7 g/dL (32-36)
[2018-11-25 06:54] LABS: Hematocrit (blood only) 31.2 % (37-47); Hemoglobin 10.2 g/dL (12.0-16.0); Mean Corpuscular Volume 83.6 fL (80-100); RDW Coefficient of Variation 18.9 % (11.5-14.5); RDW Standard Deviation 55.7 fL (36.4-46.3); Red Blood Count 3.73 M/uL (4.2-5.4)
[2018-11-25 07:04] LABS: INR 1.7 (0.9-1.1); Prothrombin Time 17.1 Seconds (9.0-12.0)
[2018-11-25 07:08] LABS: Calcium 7.2 mg/dl (8.5-10.1); Creatinine Clr Calc Pharmacy 70.3 ml/min; Est GFR (African American) 107.4; Est GFR (Non-African American) 92.7
[2018-11-25 07:09] LABS: Phosphorus 1.9 mg/dl (2.5-4.9)
[2018-11-25 07:19] LABS: Platelet Count 59 K/uL (130-400)
[2018-11-25 07:23] LABS: Basophils # (auto) 0.02 K/uL (0-0.2); Basophils % (auto) 0.4 %; Eosinophils # (auto) 0.06 K/uL (0-0.5); Eosinophils % (auto) 1.3 %; Immature Granulocytes # (auto) 0.03 K/uL (0.00-0.02); Immature Granulocytes % (auto) 0.7 %; Lymphocytes # (auto) 0.72 K/uL (1.2-3.4); Monocytes # (auto) 0.43 K/uL (0.11-0.59); Monocytes % (auto) 9.6 %; Neutrophils # (auto) 3.24 K/uL (1.4-6.5); RBC Morphology Unremarkable
[2018-11-25] MEDS: INSULIN ASPART 100 UNITS/ML 3 ML PEN SC SCH ×4 (08:31→20:35)
[2018-11-25] MEDS: DOXYCYCLINE HYCLATE 100 MG CAP PO SCH ×2 (08:33→20:26)
[2018-11-25] MEDS: SPIRONOLACTONE 25 MG TAB PO SCH (08:33)
[2018-11-25] MEDS: VENLAFAXINE HCL XR 150 MG CAPXR PO SCH (08:33)
[2018-11-25] MEDS: RIFAXIMIN 550 MG TABLET PO SCH ×2 (08:33→20:26)
[2018-11-25] MEDS: PANTOprazole 40 MG TAB PO SCH ×2 (08:33→20:26)
[2018-11-25] MEDS: LIDOCAINE 5% 1 PATCH TD SCH (08:34)
[2018-11-25] MEDS: cloNIDine HCl 0.1 MG TAB PO SCH ×2 (08:34→20:26)
[2018-11-25] MEDS: CHOLESTYRAMINE LIGHT 4 GM PKT PO SCH (08:34)
[2018-11-25] MEDS: INSULIN GLARGINE SOLOSTAR 100 UNITS/ML 3 ML PEN SC SCH (08:35)
[2018-11-25] MEDS: TRAMADOL HCL 50 MG TABLET PO PRN (08:38)
[2018-11-25] MEDS: POT PHOSPHATE MONOBASIC W/ SOD TAB PO SCH ×4 (10:18→20:26)
[2018-11-25] MEDS: MoRPHine SULFATE CR 15 MG TABCR PO SCH (12:39)
--- NOTE | 2018-11-25 14:26 | Ultrasound Report ---
ULTRASOUND RIGHT LOWER EXTREMITY VENOUS CLINICAL HISTORY: Right leg pain. COMPARISON STUDY: Bilateral lower extremity venous ultrasound dated 06/10/2009. TECHNIQUE: Real-time, grayscale, and color Doppler sonography of the deep veins of the right lower ex tremity was performed from the inguinal crease to the calf. Compression and augmentation were utilize d. FINDINGS: There is no sonographic evidence of deep venous thrombosis identified in the right lower ex tremity. The common femoral, superficial femoral, and popliteal veins are patent and normally lakshmi sible. The greater saphenous vein and the profunda femoris vein at the junction with the common femor al vein are clear. The visualized calf veins are patent. Soft tissue edema is noted in the right lowe r extremity. IMPRESSION: There is no sonographic evidence of deep venous thrombosis identified in the right lower extremity. Electronically signed by: Torres Lorenz M.D. 11/25/2018 2:25 PM
--- NOTE | 2018-11-25 15:02 | Hospitalist Progress Note ---
Date of Service November 25, 2018 Assessment & Plan (1) Metabolic encephalopathy: (2) Hepatic encephalopathy: Improved - Likely combination of factors leading to encephalopathic state with BERNIE, hypernatremia, Ammonia 57 on admission, repeat 39 Continue lactulose, Xifaxan 550 mg bid Consulted GI (3) Liver failure: INR 2.2 11/22, 11/23 20 Vitamin K ordered overnight - 1.9 11/24 Consulted GI LFTs trending down (4) Cirrhosis, nonalcoholic: Consulted GI Palliative consult - no poa or signed POLST (5) Chronic hepatitis C: -Follows with [facility] hepatology as an outpatient, had been on Lasix , Aldactone, lactulose and Xifaxan, - s/p Harvoni tx in 2014 GI consult (6) Transaminitis: Transaminases wnl (7) Fever: 11/22 - No obvious skin infections or oral lesions. Echo negative for any vegetations. No further fevers. Initial blood cultures were positive for coag negative staph in both vials, resistant to oxacillin. The following day, 11/20 blood cultures were negative despite lack of antibiotics that would cover MRSA. 11/22 BC no growth after 48 hours. Vancomycin started 11/22 and will change to doxycycline po. Ceftriaxone given x 5 days and discontinued. No further fevers (8) Acute urinary retention: -Patient found to have 1 L out of urine after cath upon admission into the ER with hematuria -CT shows that patient may have recently passed a stone, with large stone burden on the left side. There is also mild hydroureteronephrosis. -UA appears infected but cultures no growth - Rocephin discontinued after administration x5 days (9) Acute renal failure: Resolved -Creatinine on admission 3.0 and trended down Discontinue IVF as patient taking po (10) Sacral fracture: -Per ortho, no surgical intervention warranted -restarted home tramadol and added prn morphine q4h as patient is in quite a lot of pain. Discussed with Palliative and will change to ER morphine po. Given that she has a history of opioid overdose and encephalopathy will monitor carefully but with bilateral sacral fractures her pain needs to be adequately addressed -PT/OT - Doppler le negative for DVT (11) Migraine: -Patient has severe migraine issues, has followed with Dr. 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 -Continue on Effexor and alprazolam (13) Diabetes mellitus with hyperglycemia: A1C is currently 6.3 - Iss with accuchecks achs - blood sugars continue to run high toward evening. Will increase insulin (14) Osteoporosis: (15) Skin cancer of face: - Status unknown, pt uses tramadol per outpt notes for pain relief and this also adds to migraines. (16) Tobacco use: - no nicotine patch at this time. (17) Hypernatremia: Na 162 11/22 - now resolved. DC'd fluids as patient is taking adequate po (18) Hypocalcemia: 1g calcium given 11/21 - when corrected for albumin, calcium 9.3 on 11/22 (19) Hypophosphatemia: phos replaced x3 IV, continues to be low. Will start K phos po QID (20) DVT prophylaxis: - teds, scds, no chemical prophylaxis due to hematuria, thrombocytopenia, and elevated INR Subjective Continues to be only oriented to self. Continues to complain of back pain Review of Systems All systems reviewed & are unremarkable except as noted in HPI & below Physical Exam 2 Vital Signs (Past 24 Hours): Last Vital Signs Temp 36.5 C 11/25/18 11:21 Pulse 65 11/25/18 11:21 Resp 20 11/25/18 11:21 BP 115/72 11/25/18 11:21 Pulse Ox 100 11/25/18 11:21 Physical Exam: General: no distress Eyes: normal inspection, PERLL Respiratory: chest non tender, clear to auscultation, normal breath sounds, no respiratory distress, no accessory muscle use Cardiac: regular rate and rhythm, no rub or gallop, no murmur, no edema, no jvd GI/: active bowel sounds, no abd pain or tenderness, soft, non distended Extremities: normal range of motion, normal strength, non tender Neuro/Psych: alert and oriented x 3, normal mood and affect Skin: normal color, dry, bilateral foot ulcerations Results & Data Laboratory Results Abnormal lab results 11/24/18 11/24/18 11/25/18 Range/Units 16:26 20:28 06:40 WBC (4.8-10.8) K/uL RBC (4.2-5.4) M/uL Hgb (12.0-16.0) g/dL Hct (37-47) % RDW Std Deviation (36.4-46.3) fL RDW Coeff of Elbert (11.5-14.5) % Plt Count (130-400) K/uL Immature Gran # (Auto) (0.00-0.02) K/uL Lymph # (Auto) (1.2-3.4) K/uL PT (9.0-12.0) Seconds INR (0.9-1.1) Chloride 116 H (98-107) mmol/L Carbon Dioxide 20 L (21-32) mmol/L Glucose 135 H (70-99) mg/dl POC Glucose 211 H 142 H (70-99) Calcium 7.2 L (8.5-10.1) mg/dl Phosphorus 1.9 L (2.5-4.9) mg/dl 11/25/18 11/25/18 11/25/18 Range/Units 06:40 06:40 07:29 WBC 4.50 L (4.8-10.8) K/uL RBC 3.73 L (4.2-5.4) M/uL Hgb 10.2 L (12.0-16.0) g/dL Hct 31.2 L (37-47) % RDW Std Deviation 55.7 H (36.4-46.3) fL RDW Coeff of Elbert 18.9 H (11.5-14.5) % Plt Count 59 L (130-400) K/uL Immature Gran # (Auto) 0.03 H (0.00-0.02) K/uL Lymph # (Auto) 0.72 L (1.2-3.4) K/uL PT 17.1 H (9.0-12.0) Seconds INR 1.7 H (0.9-1.1) Chloride (98-107) mmol/L Carbon Dioxide (21-32) mmol/L Glucose (70-99) mg/dl POC Glucose 143 H (70-99) Calcium (8.5-10.1) mg/dl Phosphorus (2.5-4.9) mg/dl 11/25/18 Range/Units 11:33 WBC (4.8-10.8) K/uL RBC (4.2-5.4) M/uL Hgb (12.0-16.0) g/dL Hct (37-47) % RDW Std Deviation (36.4-46.3) fL RDW Coeff of Elbert (11.5-14.5) % Plt Count (130-400) K/uL Immature Gran # (Auto) (0.00-0.02) K/uL Lymph # (Auto) (1.2-3.4) K/uL PT (9.0-12.0) Seconds INR (0.9-1.1) Chloride (98-107) mmol/L Carbon Dioxide (21-32) mmol/L Glucose (70-99) mg/dl POC Glucose 222 H (70-99) Calcium (8.5-10.1) mg/dl Phosphorus (2.5-4.9) mg/dl _ (1) Acute renal failure Acute renal failure type: unspecified Qualified Code(s): N17.9 - Acute kidney failure, unspecified (2) Liver failure Hepatic coma status: without hepatic coma Liver failure chronicity: acute Qualified Code(s): K72.00 - Acute and subacute hepatic failure without coma (3) Sacral fracture Encounter type: initial encounter Fracture alignment: Fracture healing: Fracture morphology: unspecified fracture morphology Fracture type: closed Zone of sacrum fracture: Qualified Code(s): S32.10XA - Unspecified fracture of sacrum, initial encounter for closed fracture
--- NOTE | 2018-11-25 15:04 | Palliative Care Progress Note ---
Date of Service November 25, 2018 Assessment & Plan (1) Palliative care encounter: -Plan is for patient to go to SNF. Will undergo [facility] process. -Patient will remain full code, full treatment. -She does not have medical POA. If patient does become lucid, medical POA paperwork should be completed. She does have a long-term caregiver, Kiah, who knows patient well and has her best interest in mind. -For patient's back pain, will discontinue Tramadol and IV morphine. Start MS Contin 15mg PO BID. Use Tylenol for breakthrough pain. Less concern for opioid abuse (patient has history of) since she will be going to SNF. (2) Seizure disorder: -Managed by Hospitalists and Neurology -Per caregiver, patient has not had a seizure in over 8 years. -She is on Keppra, but no seizure activity has been noted since admission -Neurology was consulted and an EEG was ordered. EEG shows no seizure but does show encephalopathy. (3) Cirrhosis, nonalcoholic: -Managed by GI and Hospitalists -GI consulted. Per review, patient has not been to f/u since 2013. -Patient with cirrhosis and completion of Harvoni treatment in 2014. -Recent Ammonia level 39. -No decompensated at this time. -Elevated INR. -NO ascites on abdominal ultrasound. -GI has signed off. (4) Acute urinary retention: -Managed by Hospitalists -Patient with urinary retention upon admission. -Woodruff catheter placed and patient tolerating -Patient being treated for UTI with Ceftriaxone 2G IV daily (5) Sacral fracture: -Managed by Hospitalists and Ortho -Ortho consulted upon admission -Pelvic fracture sustained presumably from fall at home. -Recommendations were conservative measures with NWB B/L LE, not a surgical candidate -Patient was receiving Tramadol for pain. History of opioid abuse. (6) Dehydration: -Managed by Hospitalists Physical Exam 2 Vital Signs (Past 24 Hours): Last Vital Signs Temp 36.5 C 11/25/18 11:21 Pulse 65 11/25/18 11:21 Resp 20 11/25/18 11:21 BP 115/72 11/25/18 11:21 Pulse Ox 100 11/25/18 11:21 Constitutional: + ill appearing and + physical limitations; no acute distress and + not healthy appearing ENMT: Ears: no hearing impairment Neck: normal visual inspection and trachea midline Cardiovascular: Rate/Rhythm: regular rate and regular rhythm (on telemetry) Neurologic: awake and + confused Psychiatric: Orientation: alert and oriented to person Apperance: + disheveled Eye Contact: good eye contact Time Spent Midlevel 25 minutes with >50% of time spent at bedside with patient discussing pain control and coordinating care with hospitalist. _ (1) Sacral fracture Encounter type: initial encounter Fracture alignment: Fracture healing: Fracture morphology: unspecified fracture morphology Fracture type: closed Zone of sacrum fracture: Qualified Code(s): S32.10XA - Unspecified fracture of sacrum, initial encounter for closed fracture
[2018-11-25] MEDS: BACITRACIN OINT 15 GM TUBE EXT SCH (15:11)
[2018-11-26] MEDS: MoRPHine SULFATE CR 15 MG TABCR PO SCH ×2 (00:55→11:52)
[2018-11-26 06:20] LABS: Hematocrit (blood only) 30.5 % (37-47); Mean Corpuscular Hgb Conc 32.8 g/dL (32-36); Mean Corpuscular Volume 83.8 fL (80-100); Mean Platelet Volume 11.2 fL (7.4-10.4); Platelet Count 63 K/uL (130-400); RDW Coefficient of Variation 19.6 % (11.5-14.5); RDW Standard Deviation 55.7 fL (36.4-46.3); Red Blood Count 3.64 M/uL (4.2-5.4); White Blood Count 6.15 K/uL (4.8-10.8)
[2018-11-26 06:32] LABS: Calcium 7.2 mg/dl (8.5-10.1); Creatinine Clr Calc Pharmacy 69.3 ml/min; Est GFR (African American) 106.4; Est GFR (Non-African American) 91.8; Potassium 4.1 mmol/L (3.5-5.1)
[2018-11-26 06:37] LABS: Phosphorus 3.8 mg/dl (2.5-4.9)
[2018-11-26 06:39] LABS: Basophils # (auto) 0.06 K/uL (0-0.2); Eosinophils # (auto) 0.07 K/uL (0-0.5); Eosinophils % (auto) 1.1 %; Immature Granulocytes # (auto) 0.04 K/uL (0.00-0.02); Immature Granulocytes % (auto) 0.7 %; Lymphocytes % (auto) 17.9 %; Monocytes % (auto) 11.4 %; Neutrophils # (auto) 4.18 K/uL (1.4-6.5); Neutrophils % (auto) 67.9 %
[2018-11-26 08:38] LABS: Anisocytosis Present; Polychromasia 1+
[2018-11-26] MEDS: INSULIN ASPART 100 UNITS/ML 3 ML PEN SC SCH ×4 (08:40→21:09)
[2018-11-26] MEDS: LIDOCAINE 5% 1 PATCH TD SCH (08:41)
[2018-11-26] MEDS: cloNIDine HCl 0.1 MG TAB PO SCH ×2 (08:41→21:07)
[2018-11-26] MEDS: PANTOprazole 40 MG TAB PO SCH ×2 (08:41→21:07)
[2018-11-26] MEDS: VENLAFAXINE HCL XR 150 MG CAPXR PO SCH (08:41)
[2018-11-26] MEDS: CHOLESTYRAMINE LIGHT 4 GM PKT PO SCH (08:41)
[2018-11-26] MEDS: RIFAXIMIN 550 MG TABLET PO SCH ×2 (08:42→21:06)
[2018-11-26] MEDS: DOXYCYCLINE HYCLATE 100 MG CAP PO SCH ×2 (08:42→21:06)
[2018-11-26] MEDS: SPIRONOLACTONE 25 MG TAB PO SCH (08:42)
[2018-11-26] MEDS: POT PHOSPHATE MONOBASIC W/ SOD TAB PO SCH ×4 (08:42→21:08)
[2018-11-26] MEDS: INSULIN GLARGINE SOLOSTAR 100 UNITS/ML 3 ML PEN SC SCH (08:43)
[2018-11-26] MEDS: LACTULOSE SYRUP 30 GM/45 ML UDP PO SCH ×3 (08:46→21:09)
--- NOTE | 2018-11-26 09:31 | Psychiatric Consultation ---
Date of Consultation November 26, 2018 Impression / Recommendations Impression 63-year-old female admitted for what is presumed to be hepatic encephalophy. Psychiatric consultation requested to complete assessment of the patient and provide documentation necessary for Target process. Pt is largely unable to provide beneficial collateral information. No concerns suggested for poor behavioral control over the course of her admission and psychiatric history is reported to be stable for the past several years. Documentation varies, primarily suggesting a diagnosis of depression and anxiety; however, at least one mention of a diagnosis of schizoaffective disorder. Previous history of treatment with antidepressant alone suggests a depressive disorder diagnosis, and would suggest continuing to treat as such until patient returns to baseline mentally, and presence of hallucinations can be re-evaluated. 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 Nonetheless, patient is in good behavioral control on the medical floor and has been stable on her current dose of venlafaxine 150mg daily at least since her previous psychiatric consultation in 2017. Would not consider patient's psychiatric history to meet criteria for serious mental illness. She appears to be psychiatrically appropriate for transfer to a long-term care facility upon medical clearance. (1) Depression: 11/26/18 - Continue use of venlafaxine XR 150mg daily - Pt appears to be behaviorally appropriate and psychiatrically stable for transfer to a long-term care facility upon medical clearance. CPT Code 34008 Psych History Identifying Data 63-year-old female admitted medically for worsening hallucinations and inability to care for self, with possible fall prior to admission. Diagnosis of presumed hepatic encephalopathy. Psychiatric consult requested to assist with Target process and refer to long-term care facility. Information is gathered from medical records, reports for psychiatric liaison nurse, and very minimally from the patient. Chief Complaint "I'm fine." History of Present Illness Janice Carlin is a 63-year-old female admitted medically after her long-term caregiver had noticed patient's increased difficulty caring for herself, as well as behavior suggestive of increased visual hallucinations. Pt has also been found laying on the ground several days prior to admission, it was therefore unclear if she had suffered a fall as well. Pt has a PMH of non- alcoholic liver cirrhosis, invasive skin CA, T2DM, COPD, genralized epilepsy, migraines, osteoporosis, thrombocytopenia, anxiety and depression. Psychiatric consult was requested to perform assessment and complete documentation necessary for Target process in anticipation of transfer to a long-term care facility. There have been no reports of inappropriate behavior or violence while on the medical floor. History is received from previous medical records and phone conversations with patient's long-term caregiver. In the past two years, the patient has not had an inpatient mental health or partial hospitalization. She has no involvement from a psychiatric prescriber, therapist, or senior case manager. Medications have been managed by her PCP, and appear to be unchanged since her last psychiatric consultation in 2017. Pt reports to this provider that she feels "fine". In general, she believes that her 150mg dose of venlafaxine XR has been beneficial for her mood and anxiety. Only previous medication trial was of sertraline, which was also found to be helpful for a period of time. No reported history of ECT trial. It is reported that visual hallucinations have been occurring over the past year, since her admission for a pelvic fracture. These hallucinations reportedly occur monthly, and are not continuous. According to collateral information obtained, the patient has no history of suicide attempts, legal problems, loss of housing, or other significant concerns. Pt was largely sedated for our initial encounter, waking from sleep during questioning and unable to provide significant history. Pt was revisited in the afternoon and provided a minimal amount of information. Pt was awoken from sleep again and stated she was "fine". She was asked about her mood and inquired from this patient "what will fill this room...after I leave." Pt was encouraged that she was to be moved to a facility where she could regain her strength and be more comfortable, and that another patient would fill the room. Pt became tearful stating, "that's not ok, that's sad." Pt remained visible sad for the remainder of our encounter. She was asked about the presence of visual hallucinations as stated, "why would you choose right now to ask me that? " Otherwise, she denies SI/HI and other current concerns. Despite appearing saddened, the patient remained in good behavioral control for the duration of our visit. Past Psychiatric History Previous Psych History: No current outpatient psychiatric prescribers or therapist. It is believed that the patient has never been hospitalized for inpatient mental health treatment. Previous trial of sertraline, now taking venlafaxine 150mg daily for history of anxiety and depression. Current Psychiatric Diagnosis: depression and anxiety Outpatient Services: None presently Previous Psych Admissions: None reported Past Medication Trials: sertraline Allergies Allergy/AdvReac Type Severity Reaction Status Date / Time coconut Allergy Unknown ANAPHYLAXIS Verified 11/19/18 11:15 modafinil AdvReac Severe MAKES HYPER Verified 11/19/18 11:15 sulfamethoxazole AdvReac Intermediate PT STATES Verified 11/19/18 11:15 NOT GOOD FOR LIVER zolpidem AdvReac Intermediate LIVER Verified 11/19/18 11:15 PROBLEMS morphine AdvReac Mild hallucinati Verified 11/19/18 11:15 ons Home Medications Home Medications Medication Instructions Recorded Confirmed Type alendronate 70 mg PO WK 07/31/18 11/19/18 History ketoconazole 1 applic TOPICAL WK 07/31/18 11/19/18 History loperamide 2 mg PO 5XD 07/31/18 11/19/18 History spironolactone 1 tab PO DAILY 07/31/18 11/19/18 History cholestyramine-aspartame 1 packet PO DAILY 11/19/18 11/19/18 History [Prevalite] clonidine HCl 0.1 mg PO BID 11/19/18 11/19/18 History furosemide 20 mg PO DAILY 11/19/18 11/19/18 History pantoprazole 40 mg PO BID 11/19/18 11/19/18 History rifaximin [Xifaxan] 550 mg PO BID 11/19/18 11/19/18 History tramadol 50 mg PO BID PRN 11/19/18 11/19/18 History venlafaxine 150 mg PO DAILY 11/19/18 11/25/18 History Family History Pt is reported to have been adopted Substance Abuse History History of opiate abuse/withdrawal from overuse of prescribed pain medications for hip pain (see psychiatric consultation from 07/2017 admission) Personal History Living Arrangements: Home ([place]) Living Arrangements Comments: Lives independently with occasional assistance from a care specialist Marital Status: Number Of Children: adult children estranged Beliefs That Will Affect Care: None Patient History Medical History Tobacco use Skin cancer of face Cirrhosis, nonalcoholic Chronic hepatitis C Transaminitis Acute renal failure (Acute) Acute urinary retention (Acute) Liver failure (Acute) Sacral fracture (Acute) Migraine (Acute) Generalized-onset seizures (Resolved 01/23/13) Hepatic encephalopathy (Acute 01/23/13) Osteoporosis (Chronic Unknown) Generalized convulsive epilepsy (Chronic Unknown) Asthma (Chronic) Cataracts, bilateral Diabetes mellitus with hyperglycemia (Resolved) Atrial fibrillation with rapid ventricular response Family History Other No significant family history Social History Current Living Situation: Alone Current Living Situation Comment: home health nurse visits Other Information That Helps Us Care for You: No Feels Safe at Home: Yes Smoking Status: Unknown if ever smoked Beliefs That Will Affect Care: None Communication Ability: Effective Physical Exam Psychiatric Pt is oriented to self only, pt is cooperative as able, given fatigue and level of confusion. Mood is reported to be "fine" though patient displays tearful and sad affect during encounter. Pt clearly denies suicidal and homicidal ideation. Does not display paranoia. Pt does not appear to be responding to internal stimuli, does not voice any visual hallucinations at time of encounter. Thought process is disorganized, unknown intellectual functional at baseline but like impaired by current condition. Recent and remote memory is impaired. Vital Signs (Past 24 Hours) Last Vital Signs Temp 36.7 C 11/26/18 07:55 Pulse 88 11/26/18 07:55 Resp 22 11/26/18 07:55 BP 118/64 11/26/18 07:55 Pulse Ox 95 11/26/18 07:55 Skin Trauma: + evidence of skin trauma (severals areas of trauma ranging from healing scars to scabs, no areas of active bleeding noticed) and + hematoma ( diffuse areas of hematomas covering arms bilaterally) Review of Systems Unable to adequately assess given patient's level of confusion. Results & Data Medications Administered Acetaminophen (Tylenol) 650 mg PO Q4H PRN PRN Reason: Moderate Pain Stop: 12/19/18 15:42 Last Admin: 11/23/18 08:08 Dose: 650 mg Admin: 11/22/18 18:30 Dose: 650 mg Admin: 11/22/18 09:09 Dose: 650 mg Admin: 11/19/18 17:27 Dose: 650 mg Bacitracin (Bacitracin) 1 appln EXT Q24H [facility] Stop: 12/19/18 15:59 Last Admin: 11/25/18 15:11 Dose: 1 appln Admin: 11/24/18 18:25 Dose: 1 appln Admin: 11/23/18 18:32 Dose: 1 appln Admin: 11/22/18 16:41 Dose: 1 appln Admin: 11/21/18 15:20 Dose: 1 appln Admin: 11/20/18 15:59 Dose: 1 appln Admin: 11/19/18 17:16 Dose: 1 appln Cholestyramine Resin (Questran) 4 gm PO DAILY [facility] Stop: 12/20/18 08:59 Last Admin: 11/26/18 08:41 Dose: 4 gm Admin: 11/25/18 08:34 Dose: 4 gm Admin: 11/24/18 08:16 Dose: 4 gm Admin: 11/23/18 08:09 Dose: 4 gm Admin: 11/22/18 10:00 Dose: 4 gm Admin: 11/21/18 09:08 Dose: 4 gm Admin: 11/20/18 10:14 Dose: Not Given Clonidine HCl (Catapres) 0.1 mg PO BID [facility] Stop: 12/19/18 20:59 Last Admin: 11/26/18 08:41 Dose: 0.1 mg Admin: 11/25/18 20:26 Dose: 0.1 mg Admin: 11/25/18 08:34 Dose: 0.1 mg Admin: 11/24/18 19:48 Dose: 0.1 mg Admin: 11/24/18 08:16 Dose: 0.1 mg Admin: 11/23/18 19:19 Dose: 0.1 mg Admin: 11/23/18 08:09 Dose: 0.1 mg Admin: 11/22/18 20:50 Dose: 0.1 mg Admin: 11/22/18 10:00 Dose: 0.1 mg Admin: 11/21/18 21:52 Dose: 0.1 mg Admin: 11/21/18 09:16 Dose: 0.1 mg Admin: 11/20/18 22:17 Dose: Not Given Admin: 11/20/18 10:13 Dose: Not Given Admin: 11/19/18 20:00 Dose: 0.1 mg Doxycycline Hyclate (Vibramycin) 100 mg PO BID [facility] Stop: 12/08/18 20:59 Last Admin: 11/26/18 08:42 Dose: 100 mg Admin: 11/25/18 20:26 Dose: 100 mg Admin: 11/25/18 08:33 Dose: 100 mg Admin: 11/24/18 19:48 Dose: 100 mg Insulin Aspart (Novolog Flexpen) 0 units SC ACHS [facility] Stop: 12/21/18 17:29 Last Admin: 11/26/18 08:40 Dose: 2 units Admin: 11/25/18 20:35 Dose: Not Given Admin: 11/25/18 17:32 Dose: 2 units Admin: 11/25/18 12:03 Dose: 6 units Admin: 11/25/18 08:31 Dose: 3 units Admin: 11/24/18 21:57 Dose: Not Given Admin: 11/24/18 18:24 Dose: 7 units Admin: 11/24/18 12:07 Dose: 3 units Admin: 11/24/18 08:17 Dose: 2 units Admin: 11/23/18 21:18 Dose: 2 units Admin: 11/23/18 18:35 Dose: 1 units Admin: 11/23/18 12:02 Dose: 7 units Admin: 11/23/18 08:11 Dose: 14 units Admin: 11/22/18 20:53 Dose: 4 units Admin: 11/22/18 16:43 Dose: 3 units Admin: 11/22/18 11:31 Dose: 3 units Admin: 11/22/18 08:57 Dose: 1 units Admin: 11/21/18 21:50 Dose: Not Given Admin: 11/21/18 18:24 Dose: 2 units Insulin Glargine (Lantus Solostar Pen) 10 units SC DAILY [facility] Stop: 12/26/18 08:59 Last Admin: 11/26/18 08:43 Dose: 10 units Lactulose (Chronulac) 30 gm PO Q8 [facility] Stop: 12/21/18 13:59 Last Admin: 11/26/18 08:46 Dose: Not Given Admin: 11/25/18 20:26 Dose: 30 gm Admin: 11/25/18 15:10 Dose: 30 gm Admin: 11/25/18 05:55 Dose: 30 gm Admin: 11/24/18 21:14 Dose: Not Given Admin: 11/24/18 14:37 Dose: 30 gm Admin: 11/24/18 05:52 Dose: 30 gm Admin: 11/23/18 19:20 Dose: 30 gm Admin: 11/23/18 16:51 Dose: 30 gm Admin: 11/23/18 04:48 Dose: 30 gm Admin: 11/22/18 20:50 Dose: 30 gm Admin: 11/22/18 15:04 Dose: 30 gm Admin: 11/22/18 06:02 Dose: 30 gm Admin: 11/21/18 21:47 Dose: 30 gm Admin: 11/21/18 14:56 Dose: 30 gm Lidocaine (Lidoderm 5%) 1 patch TD QAM [facility] Stop: 12/20/18 14:14 Last Admin: 11/26/18 08:41 Dose: 1 patch Admin: 11/25/18 08:34 Dose: 1 patch Admin: 11/24/18 08:56 Dose: 1 patch Admin: 11/23/18 08:09 Dose: 1 patch Admin: 11/22/18 09:00 Dose: 1 patch Admin: 11/21/18 09:08 Dose: 1 patch Admin: 11/20/18 15:58 Dose: 1 patch Miscellaneous (Remove Lidoderm Patch) 1 ea N/A DAILY@2100 [facility] Stop: 12/20/18 20:59 Last Admin: 11/25/18 20:26 Dose: 1 ea Admin: 11/24/18 19:48 Dose: 1 ea Admin: 11/23/18 21:19 Dose: 1 ea Admin: 11/22/18 20:51 Dose: 1 ea Admin: 11/21/18 21:50 Dose: 1 ea Admin: 11/20/18 21:48 Dose: 1 ea Morphine Sulfate (Ms Contin) 15 mg PO Q12H [facility] Stop: 12/09/18 11:44 Last Admin: 11/26/18 00:55 Dose: 15 mg Admin: 11/25/18 12:39 Dose: 15 mg Pantoprazole Sodium (Protonix) 40 mg PO BID [facility] Stop: 12/19/18 20:59 Last Admin: 11/26/18 08:41 Dose: 40 mg Admin: 11/25/18 20:26 Dose: 40 mg Admin: 11/25/18 08:33 Dose: 40 mg Admin: 11/24/18 19:48 Dose: 40 mg Admin: 11/24/18 08:16 Dose: 40 mg Admin: 11/23/18 19:20 Dose: 40 mg Admin: 11/23/18 08:08 Dose: 40 mg Admin: 11/22/18 20:50 Dose: 40 mg Admin: 11/22/18 08:58 Dose: 40 mg Admin: 11/21/18 21:45 Dose: 40 mg Admin: 11/21/18 09:08 Dose: 40 mg Admin: 11/20/18 22:17 Dose: Not Given Admin: 11/20/18 10:13 Dose: Not Given Admin: 11/19/18 19:59 Dose: 40 mg Potassium Phosphate (Phospha 250 Neutral 155-852-130 Mg) 2 tab PO QID [facility] Stop: 12/25/18 08:59 Last Admin: 11/26/18 08:42 Dose: 2 tab Admin: 11/25/18 20:26 Dose: 2 tab Admin: 11/25/18 17:34 Dose: 2 tab Admin: 11/25/18 12:39 Dose: 2 tab Admin: 11/25/18 10:18 Dose: 2 tab Rifaximin (Xifaxan) 550 mg PO BID [facility] Stop: 12/19/18 20:59 Last Admin: 11/26/18 08:42 Dose: 550 mg Admin: 11/25/18 20:26 Dose: 550 mg Admin: 11/25/18 08:33 Dose: 550 mg Admin: 11/24/18 19:48 Dose: 550 mg Admin: 11/24/18 08:15 Dose: 550 mg Admin: 11/23/18 19:19 Dose: 550 mg Admin: 11/23/18 08:08 Dose: 550 mg Admin: 11/22/18 20:51 Dose: 550 mg Admin: 11/22/18 08:58 Dose: 550 mg Admin: 11/21/18 21:46 Dose: 550 mg Admin: 11/21/18 09:08 Dose: 550 mg Admin: 11/20/18 22:17 Dose: Not Given Admin: 11/20/18 10:14 Dose: Not Given Admin: 11/19/18 20:00 Dose: 550 mg Spironolactone (Aldactone) 50 mg PO DAILY [facility] Stop: 12/20/18 08:59 Last Admin: 11/26/18 08:42 Dose: 50 mg Admin: 11/25/18 08:33 Dose: 50 mg Admin: 11/24/18 08:15 Dose: 50 mg Admin: 11/23/18 08:09 Dose: 50 mg Admin: 11/22/18 08:58 Dose: 50 mg Admin: 11/21/18 09:08 Dose: 50 mg Admin: 11/20/18 10:13 Dose: Not Given Temazepam (Restoril) 15 mg PO HSZ PRN PRN Reason: Insomnia Stop: 12/24/18 00:14 Last Admin: 11/24/18 00:33 Dose: 15 mg Venlafaxine HCl (Effexor Extended Release) 150 mg PO DAILY [facility]; Protocol Stop: 12/20/18 08:59 Last Admin: 11/26/18 08:41 Dose: 150 mg Admin: 11/25/18 08:33 Dose: 150 mg Admin: 11/24/18 08:15 Dose: 150 mg Admin: 11/23/18 08:08 Dose: 150 mg Admin: 11/22/18 08:58 Dose: 150 mg Admin: 11/21/18 09:07 Dose: 150 mg Admin: 11/20/18 10:13 Dose: Not Given
--- NOTE | 2018-11-26 11:09 | Palliative Care Progress Note ---
Date of Service November 26, 2018 Assessment & Plan (1) Palliative care encounter: -TARGET process started today per case management. -Plan is for patient to go to SNF as returning home without / care is not a safe option. -Patient will remain full code, full treatment per POLST form that patient has filled out from previous admissions, but she never had it signed by a provider, so is not a reliable document. -She does not have medical POA. If patient does become lucid, medical POA paperwork should be completed. She does have a long-term caregiver, Kiah, who knows patient well and has her best interest in mind. -Patient tolerating MS Contin 15mg PO BID. Continue to use Tylenol for breakthrough pain, lase dose was 11/23. -Less concern for opioid abuse (patient has history of) since she will be going to SNF. -Palliative Performance Scale: 30% (2) Seizure disorder: -Managed by Hospitalists and Neurology -Per caregiver, patient has not had a seizure in over 8 years. -She is on Keppra, but no seizure activity has been noted since admission -Neurology was consulted and an EEG was ordered. EEG shows no seizure but does show encephalopathy. (3) Cirrhosis, nonalcoholic: -Managed by GI and Hospitalists -GI consulted. Per review, patient has not been to f/u since 2013. -Patient with cirrhosis and completion of Harvoni treatment in 2014. -Recent Ammonia level 39. -No decompensated at this time. -Elevated INR. -NO ascites on abdominal ultrasound. -GI has signed off. -Patient receiving Lactulose 30G po Q8. (4) Acute urinary retention: -Managed by Hospitalists -Patient with urinary retention upon admission. -Joel catheter placed and patient tolerating - agueda output -Patient initally being treated for UTI with Ceftriaxone 2G IV daily, now instead is on Rifaximin 550 mg IV BID (5) Sacral fracture: -Managed by Hospitalists and Ortho -Ortho consulted upon admission -Pelvic fracture sustained presumably from fall at home. -Recommendations were conservative measures with NWB B/L LE, not a surgical candidate -Tramadol D/C - now on MS Contin 15 mg po BID and tolerating. -Pt has Tylenol for breakthrough - last dose 11/23. -Pt LBM per nursing was a large liquid stool 11/24. (6) Dehydration: -Managed by Hospitalists -tolerating po, appetite down. Subjective Patient cognitive status improving and patient is more clear compared to the beginning of the week. Patient did tell me she was in the hospital, that her landlord's name is Peter and her caregiver is Kiah. During conversation, patient did trail off and become more confused and repeated things, indicating her decision making is not reliable for a GOALS OF CARE discussion. Patient no longer a 1:1. Patient states she doesn't have pain when she lies on her right side. Please see A & P for further details. Physical Exam 2 Vital Signs (Past 24 Hours): Last Vital Signs Temp 36.7 C 11/26/18 07:55 Pulse 88 11/26/18 07:55 Resp 22 11/26/18 07:55 BP 118/64 11/26/18 07:55 Pulse Ox 95 11/26/18 07:55 Eyes: PERRL, conjunctivae normal, anicteric sclerae ENMT: external ear and nose normal, oropharynx normal Neck: trachea midline, no thyromegaly Respiratory: normal respiratory effort, lungs clear to auscultation Auscultation: + diminished lung sounds Cardiovascular: Rate/Rhythm: regular rhythm (irregular heart rhythm) Extremities: no calf tenderness, no pedal edema and no edema Gastrointestinal (Abdomen): normal bowel sounds, soft, nontender, no hepatosplenomegaly Skin: + turgor decreased, + ulcer, + wound (sacral wounds noted by nursing and wound care team) and + dry skin Psychiatric: Orientation: alert, oriented to person and oriented to place; + not oriented to time Affect: + constricted affect Thought Process: + looseness of associations Hallucinations: + visual hallucinations (per rn intensive care unit patient has hallucinations and delusions in her past) Judgement: + impaired judgement Genitourinary: joel in place with agueda output Time Spent Midlevel Total time spent 25 minutes with > 50% of that time spent reviewing the chart, assessing the patient, and discussing PLAN OF CARE with the IDT _ (1) Sacral fracture Encounter type: initial encounter Fracture alignment: Fracture healing: Fracture morphology: unspecified fracture morphology Fracture type: closed Zone of sacrum fracture: Qualified Code(s): S32.10XA - Unspecified fracture of sacrum, initial encounter for closed fracture
--- NOTE | 2018-11-26 13:02 | Hospitalist Progress Note ---
Date of Service November 26, 2018 Assessment & Plan (1) Metabolic encephalopathy: (2) Hepatic encephalopathy: Improved - Likely combination of factors leading to encephalopathic state with BERNIE, hypernatremia, Ammonia 57 on admission, repeat 39 Continue lactulose, Xifaxan 550 mg bid Consulted GI (3) Liver failure: INR 2.2 11/22, 11/23 20 Vitamin K ordered overnight - trending down Consulted GI LFTs trending down (4) Cirrhosis, nonalcoholic: Consulted GI Palliative consult - no poa or signed POLST - remains full code with full treatment (5) Chronic hepatitis C: -Follows with [facility] hepatology as an outpatient, had been on Lasix , Aldactone, lactulose and Xifaxan, - s/p Harvoni tx in 2014 GI consult (6) Transaminitis: Transaminases wnl (7) Fever: 11/22 - No obvious skin infections or oral lesions. Echo negative for any vegetations. No further fevers. Initial blood cultures were positive for coag negative staph in both vials, resistant to oxacillin. The following day, 11/20 blood cultures were negative despite lack of antibiotics that would cover MRSA. 11/22 BC no growth after 48 hours. Vancomycin started 11/22 and will change to doxycycline po. Ceftriaxone given x 5 days and discontinued. No further fevers (8) Acute urinary retention: -Patient found to have 1 L out of urine after cath upon admission into the ER with hematuria -CT shows that patient may have recently passed a stone, with large stone burden on the left side. There was also mild hydroureteronephrosis. -UA appears infected but cultures no growth - Rocephin discontinued after administration x5 days (9) Acute renal failure: Resolved -Creatinine on admission 3.0 and trended down Discontinue IVF as patient taking po (10) Sacral fracture: -Per ortho, no surgical intervention warranted - Discussed with Palliative - ER morphine po. Given that she has a history of opioid overdose and encephalopathy will monitor carefully but with bilateral sacral fractures her pain needs to be adequately addressed -PT/OT - can weightbare for transfers from bed to chair only - Doppler le negative for DVT (11) Migraine: -Patient has severe migraine issues, has followed with Dr. 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 -Continue on Effexor and alprazolam (13) Diabetes mellitus with hyperglycemia: A1C is currently 6.3 - Iss with accuchecks achs - ss and lantus increased - will monitor today (14) Osteoporosis: (15) Skin cancer of face: - Status unknown, pt uses tramadol per outpt notes for pain relief and this also adds to migraines. (16) Tobacco use: - no nicotine patch at this time. (17) Hypernatremia: Na 162 11/22 - now resolved (18) Hypocalcemia: 1g calcium given 11/21 - when corrected for albumin, calcium 9.3 on 11/22 (19) Hypophosphatemia: phos replaced x3 IV, and started K phos po QID - phos wnl - recheck am (20) DVT prophylaxis: - teds, scds, no chemical prophylaxis due to hematuria, thrombocytopenia, and elevated INR Dispo: transfer to med-surg. Patient is [facility] process for placement Subjective Ms. Carlin is awake today, oriented to person and place which is an improvement. Her back is feeling better, her abdomen is no longer tender. Review of Systems All systems reviewed & are unremarkable except as noted in HPI & below Physical Exam 2 Vital Signs (Past 24 Hours): Last Vital Signs Temp 36.4 C L 11/26/18 11:14 Pulse 92 H 11/26/18 11:14 Resp 22 11/26/18 11:14 BP 115/64 11/26/18 11:14 Pulse Ox 97 11/26/18 11:14 Physical Exam: General: no distress Eyes: normal inspection, PERLL Respiratory: chest non tender, clear to auscultation, normal breath sounds, no respiratory distress, no accessory muscle use Cardiac: regular rate and rhythm, no rub or gallop, no murmur, no edema, no jvd GI/: active bowel sounds, no abd pain or tenderness, soft, non distended Extremities: normal range of motion, normal strength, non tender Neuro/Psych: alert and oriented x 2, normal mood and affect Skin: normal color, dry, multiple ulcerations on feet, skin with skin tears and eccymosis Results & Data Laboratory Results Abnormal lab results 11/25/18 11/25/18 11/26/18 Range/Units 16:33 20:28 05:53 RBC (4.2-5.4) M/uL Hgb (12.0-16.0) g/dL Hct (37-47) % RDW Std Deviation (36.4-46.3) fL RDW Coeff of Elbert (11.5-14.5) % Plt Count (130-400) K/uL MPV (7.4-10.4) fL Immature Gran # (Auto) (0.00-0.02) K/uL Lymph # (Auto) (1.2-3.4) K/uL [place] # (Auto) (0.11-0.59) K/uL Chloride 117 H (98-107) mmol/L Glucose 160 H (70-99) mg/dl POC Glucose 128 H 115 H (70-99) Calcium 7.2 L (8.5-10.1) mg/dl 11/26/18 11/26/18 11/26/18 Range/Units 05:53 07:50 11:43 RBC 3.64 L (4.2-5.4) M/uL Hgb 10.0 L (12.0-16.0) g/dL Hct 30.5 L (37-47) % RDW Std Deviation 55.7 H (36.4-46.3) fL RDW Coeff of Elbert 19.6 H (11.5-14.5) % Plt Count 63 L (130-400) K/uL MPV 11.2 H (7.4-10.4) fL Immature Gran # (Auto) 0.04 H (0.00-0.02) K/uL Lymph # (Auto) 1.10 L (1.2-3.4) K/uL [place] # (Auto) 0.70 H (0.11-0.59) K/uL Chloride (98-107) mmol/L Glucose (70-99) mg/dl POC Glucose 162 H 167 H (70-99) Calcium (8.5-10.1) mg/dl _ (1) Liver failure Hepatic coma status: without hepatic coma Liver failure chronicity: acute Qualified Code(s): K72.00 - Acute and subacute hepatic failure without coma (2) Acute renal failure Acute renal failure type: unspecified Qualified Code(s): N17.9 - Acute kidney failure, unspecified (3) Sacral fracture Encounter type: initial encounter Fracture alignment: Fracture healing: Fracture morphology: unspecified fracture morphology Fracture type: closed Zone of sacrum fracture: Qualified Code(s): S32.10XA - Unspecified fracture of sacrum, initial encounter for closed fracture
--- NOTE | 2018-11-26 17:10 | Orthopedic Progress Note ---
Date of Service November 26, 2018 Assessment & Plan (1) Sacral fracture: CT scan report noted. No new findings. *Still unclear if neurologic deficits are due to pain inhibition or nerve root damage. Recommend continued nonsurgical management due to comorbidities. *Patient overall has shown improvement from motor standpoint and pain. Recommend bedside PT/OT for gentle ROM (avoid hips). Can work on transfers. She can WB as tolerated only for transfers from bed to chair. Otherwise, nonweightbearing. She will need outpatient follow-up with Dr. Bryant in 2-4 weeks. Please call [phone] with questions and to schedule follow-up appointment. Subjective Patient has been working with PT/OT. Reports the pain in her tailbone is feeling better. Physical Exam 2 Vital Signs (Past 24 Hours): Last Vital Signs Temp 36.5 C 11/26/18 15:16 Pulse 93 H 11/26/18 15:16 Resp 16 11/26/18 15:16 BP 111/69 11/26/18 15:16 Pulse Ox 94 11/26/18 15:16 Physical Exam: Thin, cachectic female. Neuro exam difficult to complete due to pain. She does fire ankle dorsi- and plantar flexors bilaterally. Unable to fire knee flexors/extensors due to pain. Decreased sensation to light touch on the left foot. _ (1) Sacral fracture Encounter type: initial encounter Fracture alignment: Fracture healing: Fracture morphology: unspecified fracture morphology Fracture type: closed Zone of sacrum fracture: Qualified Code(s): S32.10XA - Unspecified fracture of sacrum, initial encounter for closed fracture
[2018-11-26] MEDS: BACITRACIN OINT 15 GM TUBE EXT SCH (17:11)
[2018-11-27] MEDS: MoRPHine SULFATE CR 15 MG TABCR PO SCH (00:01)
[2018-11-27 06:50] LABS: Hematocrit (blood only) 31.9 % (37-47); Hemoglobin 10.4 g/dL (12.0-16.0); Mean Corpuscular Hgb Conc 32.6 g/dL (32-36); Mean Corpuscular Volume 84.6 fL (80-100); RDW Coefficient of Variation 20.8 % (11.5-14.5); RDW Standard Deviation 57.7 fL (36.4-46.3); Red Blood Count 3.77 M/uL (4.2-5.4); White Blood Count 5.52 K/uL (4.8-10.8)
[2018-11-27] MEDS: LACTULOSE SYRUP 30 GM/45 ML UDP PO SCH ×3 (06:59→21:01)
[2018-11-27 07:02] LABS: INR 1.5 (0.9-1.1); Prothrombin Time 14.8 Seconds (9.0-12.0)
[2018-11-27 07:55] LABS: Anisocytosis Present; Basophils # (auto) 0.02 K/uL (0-0.2); Basophils % (auto) 0.4 %; Eosinophils # (auto) 0.05 K/uL (0-0.5); Eosinophils % (auto) 0.9 %; Immature Granulocytes # (auto) 0.02 K/uL (0.00-0.02); Immature Granulocytes % (auto) 0.4 %; Lymphocytes # (auto) 0.87 K/uL (1.2-3.4); Lymphocytes % (auto) 15.8 %; Mean Platelet Volume 11.3 fL (7.4-10.4); Monocytes % (auto) 9.1 %; Neutrophils # (auto) 4.06 K/uL (1.4-6.5); Neutrophils % (auto) 73.4 %; Platelet Count 67 K/uL (130-400)
[2018-11-27] MEDS: SPIRONOLACTONE 25 MG TAB PO SCH (08:09)
[2018-11-27] MEDS: LIDOCAINE 5% 1 PATCH TD SCH (08:09)
[2018-11-27] MEDS: cloNIDine HCl 0.1 MG TAB PO SCH ×2 (08:09→21:05)
[2018-11-27] MEDS: VENLAFAXINE HCL XR 150 MG CAPXR PO SCH (08:09)
[2018-11-27] MEDS: POT PHOSPHATE MONOBASIC W/ SOD TAB PO SCH ×4 (08:09→20:58)
[2018-11-27] MEDS: PANTOprazole 40 MG TAB PO SCH ×2 (08:09→21:00)
[2018-11-27] MEDS: CHOLESTYRAMINE LIGHT 4 GM PKT PO SCH (08:10)
[2018-11-27] MEDS: DOXYCYCLINE HYCLATE 100 MG CAP PO SCH ×2 (08:10→20:57)
[2018-11-27] MEDS: INSULIN ASPART 100 UNITS/ML 3 ML PEN SC SCH ×4 (08:10→21:22)
[2018-11-27] MEDS: RIFAXIMIN 550 MG TABLET PO SCH ×2 (08:10→21:00)
[2018-11-27] MEDS: INSULIN GLARGINE SOLOSTAR 100 UNITS/ML 3 ML PEN SC SCH (08:10)
--- NOTE | 2018-11-27 12:02 | Hospitalist Progress Note ---
Date of Service November 27, 2018 Assessment & Plan (1) Metabolic encephalopathy: (2) Hepatic encephalopathy: Improved - Likely combination of factors leading to encephalopathic state with BERNIE, hypernatremia, Ammonia 57 on admission, repeat 39 Continue lactulose, Xifaxan 550 mg bid Consulted GI - have signed off Will change patient from morphine ER to fentanyl patch given her decreased orientation today (3) Liver failure: INR 2.2 11/22, 11/23 20 Vitamin K ordered overnight - trending down LFTs trending down (4) Cirrhosis, nonalcoholic: Consulted GI - signed ff Palliative consult - no poa or signed POLST - remains full code with full treatment (5) Chronic hepatitis C: -Follows with [facility] hepatology as an outpatient, had been on Lasix , Aldactone, lactulose and Xifaxan, - s/p Harvoni tx in 2014 (6) Transaminitis: Transaminases wnl (7) Fever: 11/22 - No obvious skin infections or oral lesions. Echo negative for any vegetations. No further fevers. Initial blood cultures were positive for coag negative staph in both vials, resistant to oxacillin. The following day, 11/20 blood cultures were negative despite lack of antibiotics that would cover MRSA. 11/22 BC no growth after 48 hours. Vancomycin started 11/22 and will change to doxycycline po. Ceftriaxone given x 5 days and discontinued. No further fevers (8) Acute urinary retention: -Patient found to have 1 L out of urine after cath upon admission into the ER with hematuria -CT shows that patient may have recently passed a stone, with large stone burden on the left side. There was also mild hydroureteronephrosis. -UA appears infected but cultures no growth - Rocephin discontinued after administration x5 days (9) Acute renal failure: Resolved -Creatinine on admission 3.0 and trended down Discontinue IVF as patient taking po (10) Sacral fracture: -Per ortho, no surgical intervention warranted - Fentanyl patch as above - Given that she has a history of opioid overdose and encephalopathy will monitor carefully but with bilateral sacral fractures her pain needs to be adequately addressed -PT/OT - can weightbare for transfers from bed to chair only - Doppler le negative for DVT (11) Migraine: -Patient has severe migraine issues, has followed with Dr. 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 -Continue on Effexor and alprazolam (13) Diabetes mellitus with hyperglycemia: A1C is currently 6.3 - Iss with accuchecks achs - ss and lantus increased - will monitor today (14) Osteoporosis: (15) Skin cancer of face: - Status unknown, pt uses tramadol per outpt notes for pain relief and this also adds to migraines. (16) Tobacco use: - no nicotine patch at this time. (17) Hypernatremia: Na 162 11/22 - now resolved (18) Hypocalcemia: 1g calcium given 11/21 - when corrected for albumin, calcium 9.3 on 11/22 (19) Hypophosphatemia: phos replaced x3 IV, and started K phos po QID - phos wnl - recheck am (20) DVT prophylaxis: - teds, scds, no chemical prophylaxis due to thrombocytopenia, and elevated INR Dispo: Patient is [facility] process for placement Subjective Ms. Carlin is a bit more confused today, unable to participate in much conversation though she is awake and alert. Denies pain but is otherwise not able to answer review of systems Physical Exam 2 Vital Signs (Past 24 Hours): Last Vital Signs Temp 36.6 C 11/27/18 07:27 Pulse 92 H 11/27/18 07:27 Resp 16 11/27/18 07:27 BP 111/65 11/27/18 07:27 Pulse Ox 92 11/27/18 07:27 Physical Exam: General: no distress Eyes: normal inspection, PERLL Respiratory: chest non tender, clear to auscultation, normal breath sounds, no respiratory distress, no accessory muscle use Cardiac: regular rate and rhythm, no rub or gallop, no murmur, no edema, no jvd GI/: active bowel sounds, no abd pain or tenderness, soft, non distended Extremities: normal range of motion, normal strength, non tender Neuro/Psych: alert and disoriented, normal mood and affect Skin: normal color, dry Results & Data Laboratory Results Abnormal lab results 11/26/18 11/27/18 11/27/18 Range/Units 16:16 06:22 06:22 RBC 3.77 L (4.2-5.4) M/uL Hgb 10.4 L (12.0-16.0) g/dL Hct 31.9 L (37-47) % RDW Std Deviation 57.7 H (36.4-46.3) fL RDW Coeff of Elbert 20.8 H (11.5-14.5) % Plt Count 67 L (130-400) K/uL MPV 11.3 H (7.4-10.4) fL Lymph # (Auto) 0.87 L (1.2-3.4) K/uL PT 14.8 H (9.0-12.0) Seconds INR 1.5 H (0.9-1.1) POC Glucose 146 H (70-99) 11/27/18 11/27/18 Range/Units 07:39 11:38 RBC (4.2-5.4) M/uL Hgb (12.0-16.0) g/dL Hct (37-47) % RDW Std Deviation (36.4-46.3) fL RDW Coeff of Elbert (11.5-14.5) % Plt Count (130-400) K/uL MPV (7.4-10.4) fL Lymph # (Auto) (1.2-3.4) K/uL PT (9.0-12.0) Seconds INR (0.9-1.1) POC Glucose 165 H 168 H (70-99) _ (1) Liver failure Hepatic coma status: without hepatic coma Liver failure chronicity: acute Qualified Code(s): K72.00 - Acute and subacute hepatic failure without coma (2) Acute renal failure Acute renal failure type: unspecified Qualified Code(s): N17.9 - Acute kidney failure, unspecified (3) Sacral fracture Encounter type: initial encounter Fracture alignment: Fracture healing: Fracture morphology: unspecified fracture morphology Fracture type: closed Zone of sacrum fracture: Qualified Code(s): S32.10XA - Unspecified fracture of sacrum, initial encounter for closed fracture
[2018-11-27] MEDS: fentaNYL 12 MCG/HR TDSY TD SCH (12:31)
[2018-11-27] MEDS: BACITRACIN OINT 15 GM TUBE EXT SCH (15:51)
[2018-11-27] MEDS: ACETAMINOPHEN 325 MG TAB PO PRN (15:52)
[2018-11-27] MEDS: CHECK FENTANYL PATCH PLACEMENT SCH (15:52)
[2018-11-28] MEDS: CHECK FENTANYL PATCH PLACEMENT SCH ×3 (02:00→15:26)
[2018-11-28] MEDS: LACTULOSE SYRUP 30 GM/45 ML UDP PO SCH ×3 (06:07→22:18)
[2018-11-28 08:15] LABS: Hematocrit (blood only) 33.9 % (37-47); Hemoglobin 10.7 g/dL (12.0-16.0); Mean Corpuscular Hgb Conc 31.6 g/dL (32-36); Mean Corpuscular Volume 86.7 fL (80-100); RDW Coefficient of Variation 21.8 % (11.5-14.5); RDW Standard Deviation 62.1 fL (36.4-46.3); Red Blood Count 3.91 M/uL (4.2-5.4); White Blood Count 4.21 K/uL (4.8-10.8)
[2018-11-28] MEDS: SPIRONOLACTONE 25 MG TAB PO SCH (08:26)
[2018-11-28] MEDS: PANTOprazole 40 MG TAB PO SCH ×2 (08:27→22:18)
[2018-11-28] MEDS: INSULIN GLARGINE SOLOSTAR 100 UNITS/ML 3 ML PEN SC SCH (08:27)
[2018-11-28] MEDS: RIFAXIMIN 550 MG TABLET PO SCH ×2 (08:27→22:17)
[2018-11-28] MEDS: CHOLESTYRAMINE LIGHT 4 GM PKT PO SCH (08:27)
[2018-11-28] MEDS: POT PHOSPHATE MONOBASIC W/ SOD TAB PO SCH ×4 (08:27→22:18)
[2018-11-28] MEDS: VENLAFAXINE HCL XR 150 MG CAPXR PO SCH (08:27)
[2018-11-28] MEDS: DOXYCYCLINE HYCLATE 100 MG CAP PO SCH ×2 (08:27→22:18)
[2018-11-28] MEDS: INSULIN ASPART 100 UNITS/ML 3 ML PEN SC SCH ×4 (08:28→22:19)
[2018-11-28] MEDS: LIDOCAINE 5% 1 PATCH TD SCH (08:29)
[2018-11-28 08:40] LABS: BUN Creatinine Ratio 13.6 (10-20); Calcium 7.4 mg/dl (8.5-10.1); Creatinine Clr Calc Pharmacy 60.4 ml/min; Est GFR (African American) 92.5; Est GFR (Non-African American) 79.8; Potassium 3.4 mmol/L (3.5-5.1)
[2018-11-28 08:52] LABS: Mean Platelet Volume 11.5 fL (7.4-10.4); Platelet Count 66 K/uL (130-400)
[2018-11-28 08:53] LABS: Anisocytosis Present; Basophils # (auto) 0.02 K/uL (0-0.2); Basophils % (auto) 0.5 %; Eosinophils # (auto) 0.01 K/uL (0-0.5); Eosinophils % (auto) 0.2 %; Immature Granulocytes # (auto) 0.01 K/uL (0.00-0.02); Immature Granulocytes % (auto) 0.2 %; Lymphocytes # (auto) 0.53 K/uL (1.2-3.4); Lymphocytes % (auto) 12.6 %; Monocytes # (auto) 0.42 K/uL (0.11-0.59); Neutrophils # (auto) 3.22 K/uL (1.4-6.5); Neutrophils % (auto) 76.5 %
[2018-11-28] MEDS ORDERED: cloNIDine HCl 0.1 MG TAB PO SCH (09:00)
[2018-11-28] MEDS: cloNIDine HCl 0.1 MG TAB PO SCH ×2 (09:45→22:17)
--- NOTE | 2018-11-28 11:08 | Hospitalist Progress Note ---
Date of Service November 28, 2018 Assessment & Plan (1) Metabolic encephalopathy: (2) Hepatic encephalopathy: Improved - Likely combination of factors leading to encephalopathic state with BERNIE, hypernatremia, Ammonia 57 on admission, repeat 39 Continue lactulose, Xifaxan 550 mg bid Consulted GI - have signed off Changed patient from morphine ER to fentanyl patch given her decreased orientation 11/27 - more alert today (3) Liver failure: INR 2.2 11/22, 11/23 20 Vitamin K ordered overnight - trending down - 1.5 on 11/27 LFTs trending down (4) Cirrhosis, nonalcoholic: Consulted GI - signed ff Palliative consult - no poa or signed POLST - remains full code with full treatment (5) Chronic hepatitis C: -Follows with [facility] hepatology as an outpatient, had been on Lasix , Aldactone, lactulose and Xifaxan, - s/p Harvoni tx in 2014 (6) Transaminitis: Transaminases wnl (7) Fever: 11/22 - No obvious skin infections or oral lesions. Echo negative for any vegetations. No further fevers. Initial blood cultures were positive for coag negative staph in both vials, resistant to oxacillin. The following day, 11/20 blood cultures were negative despite lack of antibiotics that would cover MRSA. 11/22 BC no growth after 48 hours. Vancomycin started 11/22 and will change to doxycycline po. Ceftriaxone given x 5 days and discontinued. No further fevers (8) Acute urinary retention: -Patient found to have 1 L out of urine after cath upon admission into the ER with hematuria -CT shows that patient may have recently passed a stone, with large stone burden on the left side. There was also mild hydroureteronephrosis. -UA appears infected but cultures no growth - Rocephin discontinued after administration x5 days (9) Acute renal failure: Resolved -Creatinine on admission 3.0 and trended down Discontinue IVF as patient taking po (10) Sacral fracture: -Per ortho, no surgical intervention warranted - Fentanyl patch as above - Given that she has a history of opioid overdose and encephalopathy will monitor carefully but with bilateral sacral fractures her pain needs to be adequately addressed -PT/OT - can weightbare for transfers from bed to chair only - Doppler le negative for DVT (11) Migraine: -Patient has severe migraine issues, has followed with Dr. 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 -Continue on Effexor and alprazolam (13) Diabetes mellitus with hyperglycemia: A1C is currently 6.3 - Iss with accuchecks achs - ss and increased lantus to 12 units for afternoon sugars around 200 (14) Osteoporosis: (15) Skin cancer of face: - Status unknown, pt uses tramadol per outpt notes for pain relief and this also adds to migraines. (16) Tobacco use: - no nicotine patch at this time. (17) Hypernatremia: Na 162 11/22 - now resolved (18) Hypocalcemia: 1g calcium given 11/21 - when corrected for albumin, calcium 9.3 on 11/22 (19) Hypophosphatemia: phos replaced x3 IV, and started K phos po QID - phos wnl (20) DVT prophylaxis: - teds, scds, no chemical prophylaxis due to thrombocytopenia, and elevated INR Dispo: Patient is [facility] process for placement at [facility] Subjective Ms. Carlin is awake but confused. She is unable to say where she is or give ROS except to say everything hurts. When asked if she knows where she is, she says "[place]" Review of Systems All systems reviewed & are unremarkable except as noted in HPI & below Physical Exam 2 Vital Signs (Past 24 Hours): Last Vital Signs Temp 36.7 C 11/28/18 08:00 Pulse 79 11/28/18 08:00 Resp 22 11/28/18 08:00 BP 122/77 11/28/18 08:00 Pulse Ox 93 11/27/18 23:51 Physical Exam: General: no distress Eyes: normal inspection, PERLL Respiratory: chest non tender, clear to auscultation, normal breath sounds, no respiratory distress, no accessory muscle use Cardiac: regular rate and rhythm, no rub or gallop, no murmur, no edema, no jvd GI/: active bowel sounds, no abd pain or tenderness, soft, non distended Extremities: normal range of motion, normal strength, non tender Neuro/Psych: alert and oriented to self, normal mood and affect Skin: normal color, dry Results & Data Laboratory Results Abnormal lab results 11/27/18 11/27/18 11/27/18 Range/Units 11:38 16:47 20:38 WBC (4.8-10.8) K/uL RBC (4.2-5.4) M/uL Hgb (12.0-16.0) g/dL Hct (37-47) % MCHC (32-36) g/dL RDW Std Deviation (36.4-46.3) fL RDW Coeff of Elbert (11.5-14.5) % Plt Count (130-400) K/uL MPV (7.4-10.4) fL Lymph # (Auto) (1.2-3.4) K/uL Sodium (136-145) mmol/L Potassium (3.5-5.1) mmol/L Chloride (98-107) mmol/L Glucose (70-99) mg/dl POC Glucose 168 H 206 H 188 H (70-99) Calcium (8.5-10.1) mg/dl 11/28/18 11/28/18 11/28/18 Range/Units 07:31 07:56 07:56 WBC 4.21 L (4.8-10.8) K/uL RBC 3.91 L (4.2-5.4) M/uL Hgb 10.7 L (12.0-16.0) g/dL Hct 33.9 L (37-47) % MCHC 31.6 L (32-36) g/dL RDW Std Deviation 62.1 H (36.4-46.3) fL RDW Coeff of Elbert 21.8 H (11.5-14.5) % Plt Count 66 L (130-400) K/uL MPV 11.5 H (7.4-10.4) fL Lymph # (Auto) 0.53 L (1.2-3.4) K/uL Sodium 150 H (136-145) mmol/L Potassium 3.4 L (3.5-5.1) mmol/L Chloride 119 H (98-107) mmol/L Glucose 151 H (70-99) mg/dl POC Glucose 156 H (70-99) Calcium 7.4 L (8.5-10.1) mg/dl _ (1) Acute renal failure Acute renal failure type: unspecified Qualified Code(s): N17.9 - Acute kidney failure, unspecified (2) Liver failure Hepatic coma status: without hepatic coma Liver failure chronicity: acute Qualified Code(s): K72.00 - Acute and subacute hepatic failure without coma (3) Sacral fracture Encounter type: initial encounter Fracture alignment: Fracture healing: Fracture morphology: unspecified fracture morphology Fracture type: closed Zone of sacrum fracture: Qualified Code(s): S32.10XA - Unspecified fracture of sacrum, initial encounter for closed fracture
[2018-11-28] MEDS ORDERED: INSULIN GLARGINE SOLOSTAR 100 UNITS/ML 3 ML PEN SC ONE (11:30)
[2018-11-28] MEDS: BACITRACIN OINT 15 GM TUBE EXT SCH (15:26)
[2018-11-28] MEDS: ACETAMINOPHEN 325 MG TAB PO PRN (17:48)
[2018-11-29] MEDS: CHECK FENTANYL PATCH PLACEMENT SCH ×4 (01:49→23:41)
[2018-11-29] MEDS: ACETAMINOPHEN 325 MG TAB PO PRN ×2 (01:50→17:39)
[2018-11-29] MEDS: LACTULOSE SYRUP 30 GM/45 ML UDP PO SCH ×3 (06:15→20:52)
[2018-11-29 07:35] LABS: Hematocrit (blood only) 35.7 % (37-47); Hemoglobin 11.2 g/dL (12.0-16.0); Mean Corpuscular Hgb Conc 31.4 g/dL (32-36); Mean Corpuscular Volume 88.4 fL (80-100); RDW Coefficient of Variation 22.3 % (11.5-14.5); RDW Standard Deviation 69.1 fL (36.4-46.3); Red Blood Count 4.04 M/uL (4.2-5.4); White Blood Count 4.55 K/uL (4.8-10.8)
[2018-11-29 07:47] LABS: Mean Platelet Volume 10.9 fL (7.4-10.4); Platelet Count 78 K/uL (130-400)
[2018-11-29 07:55] LABS: INR 1.5 (0.9-1.1); Prothrombin Time 14.8 Seconds (9.0-12.0)
[2018-11-29 08:00] LABS: Anisocytosis Present; Basophils # (auto) 0.02 K/uL (0-0.2); Basophils % (auto) 0.4 %; Eosinophils # (auto) 0.03 K/uL (0-0.5); Eosinophils % (auto) 0.7 %; Immature Granulocytes # (auto) 0.02 K/uL (0.00-0.02); Immature Granulocytes % (auto) 0.4 %; Lymphocytes # (auto) 0.74 K/uL (1.2-3.4); Lymphocytes % (auto) 16.3 %; Monocytes # (auto) 0.41 K/uL (0.11-0.59); Neutrophils # (auto) 3.33 K/uL (1.4-6.5); Neutrophils % (auto) 73.2 %; Polychromasia 1+
[2018-11-29 08:01] LABS: BUN Creatinine Ratio 18.6 (10-20); Calcium 7.6 mg/dl (8.5-10.1); Creatinine Clr Calc Pharmacy 69.3 ml/min; Est GFR (African American) 106.4; Est GFR (Non-African American) 91.8
[2018-11-29] MEDS: RIFAXIMIN 550 MG TABLET PO SCH ×2 (08:17→20:34)
[2018-11-29] MEDS: DOXYCYCLINE HYCLATE 100 MG CAP PO SCH ×2 (08:17→20:32)
[2018-11-29] MEDS: VENLAFAXINE HCL XR 150 MG CAPXR PO SCH (08:17)
[2018-11-29] MEDS: PANTOprazole 40 MG TAB PO SCH ×2 (08:17→20:34)
[2018-11-29] MEDS: POT PHOSPHATE MONOBASIC W/ SOD TAB PO SCH ×4 (08:17→20:34)
[2018-11-29] MEDS: SPIRONOLACTONE 25 MG TAB PO SCH (08:17)
[2018-11-29] MEDS: CHOLESTYRAMINE LIGHT 4 GM PKT PO SCH (08:17)
[2018-11-29] MEDS: cloNIDine HCl 0.1 MG TAB PO SCH ×2 (08:17→20:44)
[2018-11-29] MEDS: LIDOCAINE 5% 1 PATCH TD SCH (08:18)
[2018-11-29] MEDS: INSULIN GLARGINE SOLOSTAR 100 UNITS/ML 3 ML PEN SC SCH (08:18)
[2018-11-29] MEDS: INSULIN ASPART 100 UNITS/ML 3 ML PEN SC SCH ×4 (08:19→20:51)
[2018-11-29] MEDS: POTASSIUM CHLORIDE / WTR 10 MEQ/100 ML PLCT IV SCH ×3 (08:30→10:31)
[2018-11-29] MEDS: POTASSIUM CHLORIDE 10 MEQ TABCR PO SCH ×2 (08:30→20:31)
[2018-11-29] MEDS ORDERED: OXYCODONE HCL IR 5 MG TAB (IMMEDIATE RELEASE) PO STA ×2 (09:29→18:41)
--- NOTE | 2018-11-29 09:34 | Hospitalist Progress Note ---
Date of Service November 29, 2018 Assessment & Plan (1) Metabolic encephalopathy: (2) Hepatic encephalopathy: Patient appears much more alert today as compared to when I last saw her a week ago. Discussing with nursing staff, she is more awake she has been the past 5 days. She also is able to answer questions. I agree with the statement that her encephalopathy was likely multifactorial: BERNIE, hypernatremia. Ammonia elevated on admission. Will now monitor her menatl status clinically and monitor her Bowel movements. Continue lactulose, Xifaxan 550 mg bid Consulted GI - have signed off On fentanyl patch, will order a small dose of oxycodone. As stated below, patient will be going home. (3) Liver failure: INR 2.2 11/22, 11/23 20 Vitamin K ordered overnight - trending down - 1.5 on 11/29 LFTs trending down (4) Cirrhosis, nonalcoholic: Consulted GI - signed ff Palliative consult - no poa or signed POLST - remains full code with full treatment (5) Chronic hepatitis C: -Follows with [facility] hepatology as an outpatient, had been on Lasix , Aldactone, lactulose and Xifaxan, - s/p Harvoni tx in 2014 (6) Transaminitis: Transaminases wnl (7) Fever: 11/22 - No obvious skin infections or oral lesions. Echo negative for any vegetations. No further fevers. Initial blood cultures were positive for coag negative staph in both vials, resistant to oxacillin. The following day, / blood cultures were negative despite lack of antibiotics that would cover MRSA. 11/22 BC no growth after 48 hours. Vancomycin started 11/22 and will change to doxycycline po. Ceftriaxone given x 5 days and discontinued. No further fevers (8) Acute urinary retention: -Patient found to have 1 L out of urine after cath upon admission into the ER with hematuria -CT shows that patient may have recently passed a stone, with large stone burden on the left side. There was also mild hydroureteronephrosis. -UA appears infected but cultures no growth - Rocephin discontinued after administration x5 days Patient however remains on joel. Today she removed it by her own. Will monitor her urine output. If she is unable to urinate, may consider re-inserting joel. (9) Acute renal failure: Resolved -Creatinine on admission 3.0 and trended down Discontinue IVF as patient taking po (10) Sacral fracture: -Per ortho, no surgical intervention warranted - Fentanyl patch as above -Also placed patient on oxycodone as pain is not being addressed. - Given that she has a history of opioid overdose and encephalopathy will monitor carefully but with bilateral sacral fractures her pain needs to be adequately addressed -PT/OT - can weightbare for transfers from bed to chair only - Doppler le negative for DVT (11) Migraine: -Patient has severe migraine issues, has followed with Dr. 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 -Continue on Effexor and alprazolam (13) Diabetes mellitus with hyperglycemia: A1C is currently 6.3 - Iss with accuchecks achs - ss and increased lantus to 12 units for afternoon sugars around 200 (14) Osteoporosis: (15) Skin cancer of face: - Status unknown, pt uses tramadol per outpt notes for pain relief and this also adds to migraines. (16) Tobacco use: - no nicotine patch at this time. (17) Hypernatremia: Na 162 11/22 - now resolved (18) Hypocalcemia: 1g calcium given 11/21 - when corrected for albumin, calcium 9.3 on 11/22 (19) Hypophosphatemia: phos replaced x3 IV, and started K phos po QID - phos wnl (20) Hypokalemia: Potassium is low on 11/29. Will replace with 30 meq of Potassium and also order PO potassium (21) DVT prophylaxis: - teds, scds, no chemical prophylaxis due to thrombocytopenia, and elevated INR Dispo: Patient is TARGET process for placement at [facility] Subjective 63 yo female is more awake and alert today. I was called in by the nurse as patient reports being in significant pain. Nurse states patient was in agony. I went the room and patient was very much alert. However she had just removed her joel by pulling it out. She states that I wont be able to take her things away from her. When asking what is wrong, she states everything. When asked about pain, she states it hurts everywhere, including her back and abdomen and legs. Review of Systems Unobtainable due to mental health condition Physical Exam 2 Vital Signs (Past 24 Hours): Last Vital Signs Temp 36.5 C 11/29/18 07:30 Pulse 70 11/29/18 07:30 Resp 20 11/29/18 07:30 BP 119/78 11/29/18 07:30 Pulse Ox 97 11/28/18 23:00 Physical Exam: General: Patient is awake, appears to be anxious, and is breathing fast. Eyes: normal inspection, PERLL Respiratory: chest non tender, clear to auscultation, normal breath sounds, not in distress Cardiac: regular rate and rhythm, no rub or gallop, no murmur, no edema, no jvd GI/: active bowel sounds, no abd pain or tenderness, soft, non distended Extremities: normal range of motion, normal strength, non tender Neuro/Psych: alert and oriented to self, normal mood and affect Skin: normal color, dry _ (1) Liver failure Hepatic coma status: without hepatic coma Liver failure chronicity: acute Qualified Code(s): K72.00 - Acute and subacute hepatic failure without coma (2) Acute renal failure Acute renal failure type: unspecified Qualified Code(s): N17.9 - Acute kidney failure, unspecified (3) Sacral fracture Encounter type: initial encounter Fracture alignment: Fracture healing: Fracture morphology: unspecified fracture morphology Fracture type: closed Zone of sacrum fracture: Qualified Code(s): S32.10XA - Unspecified fracture of sacrum, initial encounter for closed fracture
[2018-11-29 11:44] LABS: Hepatitis C Vira RNA (Log) PCR 6.37 LOG IU/ML (<1.18)
[2018-11-29] MEDS: BACITRACIN OINT 15 GM TUBE EXT SCH (16:12)
[2018-11-30] MEDS: ACETAMINOPHEN 325 MG TAB PO PRN (05:22)
[2018-11-30] MEDS: LACTULOSE SYRUP 30 GM/45 ML UDP PO SCH ×2 (05:44→14:22)
[2018-11-30 07:14] LABS: Mean Corpuscular Hgb Conc 31.4 g/dL (32-36)
[2018-11-30 07:30] LABS: Hematocrit (blood only) 35.4 % (37-47); Hemoglobin 11.1 g/dL (12.0-16.0); Mean Corpuscular Volume 88.5 fL (80-100); RDW Coefficient of Variation 22.1 % (11.5-14.5); White Blood Count 3.59 K/uL (4.8-10.8)
[2018-11-30 07:31] LABS: Platelet Count 70 K/uL (130-400)
[2018-11-30 07:35] LABS: INR 1.5 (0.9-1.1); Prothrombin Time 14.4 Seconds (9.0-12.0)
[2018-11-30 07:45] LABS: Anisocytosis Present; Basophils # (auto) 0.02 K/uL (0-0.2); Basophils % (auto) 0.6 %; Eosinophils # (auto) 0.03 K/uL (0-0.5); Eosinophils % (auto) 0.8 %; Immature Granulocytes # (auto) 0.01 K/uL (0.00-0.02); Immature Granulocytes % (auto) 0.3 %; Lymphocytes # (auto) 0.76 K/uL (1.2-3.4); Lymphocytes % (auto) 21.2 %; Monocytes # (auto) 0.34 K/uL (0.11-0.59); Monocytes % (auto) 9.5 %; Neutrophils # (auto) 2.43 K/uL (1.4-6.5); Neutrophils % (auto) 67.6 %; Polychromasia 1+
[2018-11-30 07:46] LABS: BUN Creatinine Ratio 19.6 (10-20); Calcium 7.4 mg/dl (8.5-10.1); Creatinine Clr Calc Pharmacy 71.4 ml/min; Est GFR (African American) 107.4; Est GFR (Non-African American) 92.7; Potassium 3.5 mmol/L (3.5-5.1)
[2018-11-30] MEDS: INSULIN GLARGINE SOLOSTAR 100 UNITS/ML 3 ML PEN SC SCH (08:25)
[2018-11-30] MEDS: INSULIN ASPART 100 UNITS/ML 3 ML PEN SC SCH ×2 (08:26→12:33)
[2018-11-30] MEDS: PANTOprazole 40 MG TAB PO SCH (08:27)
[2018-11-30] MEDS: POT PHOSPHATE MONOBASIC W/ SOD TAB PO SCH ×2 (08:27→12:33)
[2018-11-30] MEDS: cloNIDine HCl 0.1 MG TAB PO SCH (08:27)
[2018-11-30] MEDS: DOXYCYCLINE HYCLATE 100 MG CAP PO SCH (08:28)
[2018-11-30] MEDS: VENLAFAXINE HCL XR 150 MG CAPXR PO SCH (08:28)
[2018-11-30] MEDS: RIFAXIMIN 550 MG TABLET PO SCH (08:28)
[2018-11-30] MEDS: SPIRONOLACTONE 25 MG TAB PO SCH (08:28)
[2018-11-30] MEDS: CHOLESTYRAMINE LIGHT 4 GM PKT PO SCH (08:28)
[2018-11-30] MEDS: POTASSIUM CHLORIDE 10 MEQ TABCR PO SCH (08:29)
[2018-11-30] MEDS: LIDOCAINE 5% 1 PATCH TD SCH (08:29)
[2018-11-30] MEDS: CHECK FENTANYL PATCH PLACEMENT SCH (08:30)
--- NOTE | 2018-11-30 08:41 | Orthopedic Progress Note ---
Date of Service November 30, 2018 Assessment & Plan (1) Sacral fracture: Neurologic exam is improving, although still limited in left ankle dorsiflexion/plantarflexion and subjectively decreased sensation. Recommend continued nonsurgical management due to comorbidities. Recommend bedside PT/OT for gentle ROM (avoid hips). Can work on transfers. She can WB as tolerated only for transfers from bed to chair with assistance. Otherwise, nonweightbearing. She will need outpatient follow-up with Dr. Bryant in 2-4 weeks. Please call [phone] with questions and to schedule follow-up appointment. Subjective Patient has been working with PT/OT. Reports the pain in her tailbone continues to feel better. Physical Exam 2 Vital Signs (Past 24 Hours): Last Vital Signs Temp 36.7 C 11/30/18 08:09 Pulse 78 11/30/18 08:09 Resp 16 11/30/18 08:09 BP 132/78 11/30/18 08:09 Pulse Ox 100 11/30/18 08:09 Physical Exam: More alert today than on prior exams. Wearing protective boots on her bilateral feet. Intact sensation to light touch bilateral lower extremities, L3 to S1 dermatomes. Fires hip flexors, extensors and adductors today, which is an improvement from prior. Fires ankle dorsiflexors/plantiflexors on the right, but not on the left. _ (1) Sacral fracture Encounter type: initial encounter Fracture alignment: Fracture healing: Fracture morphology: unspecified fracture morphology Fracture type: closed Zone of sacrum fracture: Qualified Code(s): S32.10XA - Unspecified fracture of sacrum, initial encounter for closed fracture
[2018-11-30] MEDS: fentaNYL 12 MCG/HR TDSY TD SCH (12:32)
[2018-11-30] MEDS ORDERED: OXYCODONE HCL IR 5 MG TAB (IMMEDIATE RELEASE) PO STA (13:05)
[2018-11-30] MEDS: BACITRACIN OINT 15 GM TUBE EXT SCH (16:29)
--- NOTE | 2018-12-08 07:06 | Discharge Summary ---
Date of Service November 30, 2018 Admission HPI Per Admitting Provider Janice Carlin is a 63-year-old female admitted medically after her long-term caregiver had noticed patient's increased difficulty caring for herself, as well as behavior suggestive of increased visual hallucinations. Pt has also been found laying on the ground several days prior to admission, it was therefore unclear if she had suffered a fall as well. Pt has a PMH of non- alcoholic liver cirrhosis, invasive skin CA, T2DM, COPD, genralized epilepsy, migraines, osteoporosis, thrombocytopenia, anxiety and depression. Psychiatric consult was requested to perform assessment and complete documentation necessary for Target process in anticipation of transfer to a long-term care facility. There have been no reports of inappropriate behavior or violence while on the medical floor. History is received from previous medical records and phone conversations with patient's long-term caregiver. In the past two years, the patient has not had an inpatient mental health or partial hospitalization. She has no involvement from a psychiatric prescriber, therapist, or caser up. Medications have been managed by her PCP, and appear to be unchanged since her last psychiatric consultation in 2017. Pt reports to this provider that she feels "fine". In general, she believes that her 150mg dose of venlafaxine XR has been beneficial for her mood and anxiety. Only previous medication trial was of sertraline, which was also found to be helpful for a period of time. No reported history of ECT trial. It is reported that visual hallucinations have been occurring over the past year, since her admission for a pelvic fracture. These hallucinations reportedly occur monthly, and are not continuous. According to collateral information obtained, the patient has no history of suicide attempts, legal problems, loss of housing, or other significant concerns. Pt was largely sedated for our initial encounter, waking from sleep during questioning and unable to provide significant history. Pt was revisited in the afternoon and provided a minimal amount of information. Pt was awoken from sleep again and stated she was "fine". She was asked about her mood and inquired from this patient "what will fill this room...after I leave." Pt was encouraged that she was to be moved to a facility where she could regain her strength and be more comfortable, and that another patient would fill the room. Pt became tearful stating, "that's not ok, that's sad." Pt remained visible sad for the remainder of our encounter. She was asked about the presence of visual hallucinations as stated, "why would you choose right now to ask me that? " Otherwise, she denies SI/HI and other current concerns. Despite appearing saddened, the patient remained in good behavioral control for the duration of our visit. Principal Diagnosis Hepatic encephalopathy Discharge Exam General: Patient is awake, in calm Eyes: normal inspection, PERLL Respiratory: chest non tender, clear to auscultation, normal breath sounds, not in distress Cardiac: regular rate and rhythm, no rub or gallop, no murmur, no edema, no jvd GI/: active bowel sounds, no abd pain or tenderness, soft, non distended Extremities: normal range of motion, normal strength, non tender Neuro/Psych: alert and oriented to self, normal mood and affect Skin: normal color, dry Discharge Data Allergies Allergy/AdvReac Type Severity Reaction Status Date / Time coconut Allergy Unknown ANAPHYLAXIS Verified 11/19/18 11:15 modafinil AdvReac Severe MAKES HYPER Verified 11/19/18 11:15 sulfamethoxazole AdvReac Intermediate PT STATES Verified 11/19/18 11:15 NOT GOOD FOR LIVER zolpidem AdvReac Intermediate LIVER Verified 11/19/18 11:15 PROBLEMS morphine AdvReac Mild hallucinati Verified 11/19/18 11:15 ons Consultations 11/19/18 13:37 ED Decision to Admit Stat 11/19/18 15:43 Consult Case Management - Discharge Planning Routine Consult Neurology Routine Consult Orthopedic Surgery Routine 11/21/18 13:39 Consult Palliative Care Routine 11/22/18 09:05 Consult Gastroenterology Routine 11/23/18 13:27 Consult Podiatry Routine 11/25/18 13:25 Consult Psychiatry Routine Ordered Studies 11/19/18 11:42 CT abd pelvis wo con Stat 11/20/18 10:12 CT head/brain wo con Routine 11/22/18 11:00 US abdomen limited Routine 11/23/18 14:20 CT pelvis wo con Routine 11/25/18 US venous doppler LE RT Routine Hospital Course (1) Metabolic encephalopathy: (2) Hepatic encephalopathy: Patient appears much more alert today as compared to when I last saw her a week ago. Discussing with nursing staff, she is more awake she has been the past 5 days. She also is able to answer questions. I agree with the statement that her encephalopathy was likely multifactorial: BERNIE, hypernatremia. Ammonia elevated on admission. Will now monitor her menatl status clinically and monitor her Bowel movements. Continue lactulose, Xifaxan 550 mg bid Consulted GI - have signed off On fentanyl patch, will order a small dose of oxycodone. As stated below, patient will be going to SNF. Mental status is back to baseline. (3) Liver failure: INR 2.2 11/22, 11/23 20 Vitamin K ordered overnight - trending down - 1.5 on 11/29 LFTs trending down (4) Cirrhosis, nonalcoholic: Consulted GI - signed ff Palliative consult - no poa or signed POLST - remains full code with full treatment (5) Chronic hepatitis C: -Follows with [facility] hepatology as an outpatient, had been on Lasix , Aldactone, lactulose and Xifaxan, - s/p Harvoni tx in 2014 (6) Transaminitis: Transaminases wnl (7) Fever: 11/22 - No obvious skin infections or oral lesions. Echo negative for any vegetations. No further fevers. Initial blood cultures were positive for coag negative staph in both vials, resistant to oxacillin. The following day, 11/20 blood cultures were negative despite lack of antibiotics that would cover MRSA. 11/22 BC no growth after 48 hours. Vancomycin started 11/22 and will change to doxycycline po. Ceftriaxone given x 5 days and discontinued. No further fevers (8) Acute urinary retention: -Patient found to have 1 L out of urine after cath upon admission into the ER with hematuria -CT shows that patient may have recently passed a stone, with large stone burden on the left side. There was also mild hydroureteronephrosis. -UA appears infected but cultures no growth - Rocephin discontinued after administration x5 days Patient however remains on joel. On day prior to discharge, she removed the joel. Will monitor her urine output. Patient was able to make urine. (9) Acute renal failure: Resolved -Creatinine on admission 3.0 and trended down Discontinue IVF as patient taking po (10) Sacral fracture: -Per ortho, no surgical intervention warranted - Fentanyl patch as above -Also placed patient on oxycodone as pain is not being addressed. - Given that she has a history of opioid overdose and encephalopathy will monitor carefully but with bilateral sacral fractures her pain needs to be adequately addressed -PT/OT - can weightbare for transfers from bed to chair only - Doppler le negative for DVT (11) Migraine: -Patient has severe migraine issues, has followed with Dr. 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 -Continue on Effexor and alprazolam (13) Diabetes mellitus with hyperglycemia: A1C is currently 6.3 - Iss with accuchecks achs - ss and increased lantus to 12 units for afternoon sugars around 200 (14) Osteoporosis: (15) Skin cancer of face: - Status unknown, pt uses tramadol per outpt notes for pain relief and this also adds to migraines. (16) Tobacco use: - no nicotine patch at this time. (17) Hypernatremia: Na 162 11/22 - now resolved (18) Hypocalcemia: 1g calcium given 11/21 - when corrected for albumin, calcium 9.3 on 11/22 (19) Hypophosphatemia: phos replaced x3 IV, and started K phos po QID - phos wnl (20) Hypokalemia: Potassium is low on 11/29. Will replace with 30 meq of Potassium and also order PO potassium (21) DVT prophylaxis: - teds, scds, no chemical prophylaxis due to thrombocytopenia, and elevated INR Dispo: Patient is TARGET process for placement at [facility] Total Time Total Time Spent Total Time Spent (In Minutes): 33 minutes Total Time Includes: Examination of the Patient, Discharge Planning and Medication Reconciliation Discharge Plan Discharge Items Patient Disposition: Transfer Inpatient Rehab Fac Reason For Visit: METABOLIC ENCEPHALOPATHY, UTI Discharge Diagnosis: Metabolic Encephalopathy Discharge Goals: Decrease discomfort and Increase independence Activity: Per 'Additional Instructions' section Activity Comment: As per halfway Non-emergency contact: Primary Care Provider Call non-emergency contact if: you have any medication questions Diet: Regular Addtl Provider Instructions: Check bmp in 1 week Prescriptions: New lidocaine 5 % Adhesive Patch,Medicated 1 patch Transdermal QAM Qty: 30 RF: 0 potassium chloride [Klor-Con M10] 10 mEq Tablet,Er Particles/Crystals 20 meq PO BID Qty: 14 RF: 0 fentanyl 12 mcg/hr Patch 72 Hour 12 mcg Transdermal Q72H Qty: 5 RF: 0 Continue loperamide 2 mg capsule 2 mg PO 5XD RF: 0 alendronate 70 mg tablet 70 mg PO WK RF: 0 spironolactone 50 mg tablet 1 tab PO DAILY RF: 0 ketoconazole 2 % shampoo 1 applic Topical WK RF: 0 clonidine HCl 0.1 mg tablet 0.1 mg PO BID RF: 0 venlafaxine 150 mg capsule,extended release 24hr 150 mg PO DAILY RF: 0 pantoprazole 40 mg tablet,delayed release (DR/EC) 40 mg PO BID RF: 0 furosemide 20 mg tablet 20 mg PO DAILY RF: 0 cholestyramine-aspartame 4 gram powder in packet 1 packet PO DAILY RF: 0 rifaximin 550 mg tablet 550 mg PO BID RF: 0 tramadol 50 mg tablet 50 mg PO BID PRN (Reason: Pain) Qty: 30 RF: 0 Stand-Alone Forms: [facility] Discharge Orders: Discharge Order (Routine); Ordered 11/30/18 Ordered By: Silverio Rizo Skilled Items Patient informed of condition?: Yes DNR: No Discharge Level of Care: Skilled Communicable Disease: No Discharge Prognosis: Improving Admission Data Admit Date/Time: 11/19/18 14:05 Attending Provider: Silverio Rizo Admit Provider: Antoinette Blanco Primary Care Provider: Franco Singh Other Providers: Lashonda Duff ; Antoinette Blanco ; Domitila Bowles ; Flavio Bryant ; Delilah Blank ; Ebony Do ; Krista Olivas ; Viviana Villagran Service: Medical Other Interventions: Discharge Summary Assessment (RN) Last Done: 11/30/18 11:36 DC Date/Time DO NOT enter until pt leaves facility: 11/30/18 17:11
== END 2018-11-30 17:11 | DRG 441 ==
LOC: ED 10:49 → 2S 14:05 → SUATTDRO 14:05 → 2S 15:10 → 2N 11-26 13:02
DX: N17.9 Acute kidney failure, unspecified; M81.0 Age-related osteoporosis without current pathological fracture; G43.909 Migraine, unspecified, not intractable, without status migrainosus; Z88.5 Allergy status to narcotic agent; F41.8 Other specified anxiety disorders; Z88.2 Allergy status to sulfonamides; R74.0 Nonspecific elevation of levels of transaminase and lactic acid dehydrogenase [LDH]; E87.0 Hyperosmolality and hypernatremia; K72.90 Hepatic failure, unspecified without coma; E83.51 Hypocalcemia; E11.65 Type 2 diabetes mellitus with hyperglycemia; B18.2 Chronic viral hepatitis C; G93.41 Metabolic encephalopathy; H26.9 Unspecified cataract; K74.60 Unspecified cirrhosis of liver; R33.9 Retention of urine, unspecified; E83.39 Other disorders of phosphorus metabolism; S32.10XA Unspecified fracture of sacrum, initial encounter for closed fracture; I48.91 Unspecified atrial fibrillation; Z91.018 Allergy to other foods; Z51.5 Encounter for palliative care; J44.9 Chronic obstructive pulmonary disease, unspecified; N13.30 Unspecified hydronephrosis; E86.0 Dehydration; J45.909 Unspecified asthma, uncomplicated; F17.200 Nicotine dependence, unspecified, uncomplicated; G40.309 Generalized idiopathic epilepsy and epileptic syndromes, not intractable, without status epilepticus